=== PATIENT | female | born 1985 | race Caucasian/White ===

== ENCOUNTER 2024-09-26 12:26 | Outpatient (CLI) | payer OTHER, SELFPAY ==
[2024-09-28 20:29] LABS: HPV Source Cervical; HPV, High Risk by TMA Not Detected
== END 2024-09-26 12:27 | disposition home or self-care (01) ==
PROVIDERS: Visit Provider Registered Nurse
DX: Z00.00 Encounter for general adult medical examination without abnormal findings (principal); D50.9 Iron deficiency anemia, unspecified; E66.9 Obesity, unspecified; G47.00 Insomnia, unspecified; Z13.6 Encounter for screening for cardiovascular disorders; Z13.1 Encounter for screening for diabetes mellitus; Z11.51 Encounter for screening for human papillomavirus (HPV)
CPT/HCPCS: 80061; 82728; 82947; 84443; 87624; 87625; 88141; 88142

== ENCOUNTER 2024-12-20 13:23 | Outpatient (CLI) | payer OTHER, SELFPAY ==
--- NOTE | 2024-12-20 13:40 | CRLHL7_ITS ---
For Patients: As a result of the Century Cures Act, medical imaging exams and procedure reports are released immediately into your electronic medical record. You may view this report before your referring provider. If you have questions, please contact your health care provider. BILATERAL SCREENING MAMMOGRAM WITH COMPUTER-AIDED DETECTION AND TOMOSYNTHESIS TECHNIQUE: CC and MLO views were obtained. These mammographic images have been obtained using full-field digital technique. These mammographic images were interpreted with the benefit of computer-aided detection. Breast tomosynthesis was used in this interpretation. COMPARISON FILM: No comparison available. This is a baseline study. FINDINGS: There are scattered areas of fibroglandular density. IMPRESSION: There is no radiographic evidence for malignancy. ASSESSMENT: BI-RADS Category 2: Benign RECOMMENDATION: Routine screening mammogram in 1 year. A lay language report of this examination will be provided to the patient. STEFANO RUST M.D. Diagnostic Radiologist [email or web address] Transcribed: 01/02/2025, 12:[address]/Dictated by: Stefano Rust MD @ 01/02/2025 9:15:00 AM (Electronically Signed)
== END 2024-12-20 13:24 | disposition home or self-care (01) ==
LOC: MAMMO 13:23
PROVIDERS: Visit Provider Registered Nurse
DX: Z12.31 Encounter for screening mammogram for malignant neoplasm of breast (principal)
CPT/HCPCS: 77063; 77067

== ENCOUNTER 2025-03-28 10:24 | Outpatient (CLI) | payer OTHER, SELFPAY ==
--- NOTE | 2025-03-28 10:45 | CRLHL7_ITS ---
For Patients: As a result of the Century Cures Act, medical imaging exams and procedure reports are released immediately into your electronic medical record. You may view this report before your referring provider. If you have questions, please contact your health care provider. CLINICAL HISTORY: Pelvic pain TECHNIQUE: 2D leal scale ultrasound. In addition color Doppler and spectral Doppler analysis was performed of the pelvis using a transabdominal and transvaginal approach. FINDINGS: The uterus measures 8.1 x 6.0 x 5.2 cm. Anterior partially exophytic fundal fibroid measures 4.1 x 3.9 x 4.7 cm. IUD is present in good position within the endometrial canal. Endometrium is not thickened. The right ovary measures 3.2 x 2.0 x 2.3 cm in size and the left ovary measures 3.2 x 1.3 x 2.8 cm. The ovaries demonstrate normal arterial and venous blood flow on color Doppler and spectral Doppler analysis. There are no suspicious fluid collections within the cul-de-sac. IMPRESSION: Anterior fundal fibroid measures 4.1 x 3.9 x 4.7 cm. Normal position of an IUD within the endometrial canal. Normal ovaries without torsion or excess pelvic free fluid. No adnexal mass. Dictated by Stefano Leija MD @ 03/28/2025 8:11:18 PM (Electronically Signed)
== END 2025-03-28 10:25 | disposition home or self-care (01) ==
LOC: US 10:25
PROVIDERS: Visit Provider Obstetrics & Gynecology
DX: R10.2 Pelvic and perineal pain (principal); D25.9 Leiomyoma of uterus, unspecified
CPT/HCPCS: 76830; 76856; 93976

== ENCOUNTER 2025-05-23 08:23 | Outpatient (CLI) | payer OTHER, SELFPAY | END 2025-05-23 08:24 | disposition home or self-care (01) | PROVIDERS: Visit Provider Family Medicine | DX: R55 Syncope and collapse (principal); R53.1 Weakness; R07.89 Other chest pain | CPT/HCPCS: A0425; A0427 ==

== ENCOUNTER 2025-07-03 18:01 | Emergency (ER) | payer OTHER, SELFPAY ==
--- OUTSIDE RECORDS SUMMARY | 2025-07-03 18:04 | XMS_ITS | CCD ---
Author Name Interface, [id number] lity Address [address] [place] [address] [facility] Address [address] [place] [address] Care Team Providers Care [place] Management Specialist Name Role Phone Torsten Morfin Unavailable Unavailable Allergies and Adverse Reactions Care Plan Reason for Visit Encounters Immunizations Diagnostic Results Medications Problems Procedures Social History Visits Vital Signs Notes Section
--- OUTSIDE RECORDS SUMMARY | 2025-07-03 18:04 | XMS_ITS ---
Author Name Interface, [id number] lity Address [address] [place], [place] [address]N [place] [id number] [facility] On[facility] Address [address] [place], [place] [address] [place] [address] Allergies and Adverse Reactions Plan Reason for Visit Encounters Immunizations Diagnostic Results Medications Problems Vital Signs Notes Section
--- OUTSIDE RECORDS SUMMARY | 2025-07-03 18:04 | XMS_ITS | Clinical Summary ---
Author Organization [employer] [facility] Address [facility] [place] [address] Care Team Providers Care Photogrammetric Engineer Name Role Phone Riddhi Brewster NP Primary Care Pro vider Allergies No known active allergies Medications Advair HFA 115-21 mcg/actuation inhaler Inhale 2 Puffs by mouth two times daily. 3 Active traZODone (DESYREL) 50 mg tablet Take 100 mg by mouth at bedtime. 3 Active ferrous gluconate (27 mg elemental) 240 mg (27 mg iron) tablet Take 240 mg by mouth once daily. 4 Active Ventolin HFA 90 mcg/actuation inhaler Inhale 2 Puffs by mouth every 4 hours if needed for Shortness Of Breath or Wheezing. 4 Active ondansetron [address] 4 mg on the tongue every 8 hours if needed. 5 Active SUMAtriptan 100 mg tablet Take 100 mg by mouth 2 times daily if needed. 4 Active FLUoxetine 20 mg capsuleIndications: Anxiety Take 2 Capsules (40 mg) by mouth once daily in the morning. 30 Capsule 5 Active apixaban (Eliquis) 5 mg tabletIndications:p ulmonary thromboembolism Take 2 tablets (10 mg) by mouth twice daily for 11 DOSES. Starting on 06/03, take 1 tablet by mouth twice daily thereafter. 74 Tablet 05/28/2025 10:18 AM CDT Active cetirizine 10 mg tabletIndications:A llergic rhinitis due to pollen, unspecified seasonality Take 1 Tablet (10 mg) by mouth once daily if needed for Allergy Symptoms or Rhinitis. 5 Active Active Problems Problem Noted Date Diagnosed Date Other insomnia 05/26/2025 Acute massive pulmonary embolism 05/23/2025 Cardiogenic shock 05/23/2025 Resolved Problems Problem Noted Date Diagnosed Date Resolved Date Intermittent asthma, uncomplicated 05/26/2025 Allergic rhinitis 05/26/2025 Intractable migraine without aura and without status migrainosus 05/26/2025 Morbid obesity 05/26/2025 Overview (05/26/2025): s/p RnY bypass. BMI now 34 Anastomotic ulcer S/P gastric bypass 05/26/2025 Encounters Date Type Department Care Team Description 05/30/2025 Orders Only [facility] [address] [facility] [address] [place] [address] Haresh Lobo MD <No scans attached> 05/24/2025 12:44 PM CDT Anesthesia Event [facility] [address] [address] Jv Zhu, DO Mendez, Re Marsh, CARRIER LOADER 05/24/2025 12:15 PM CDT - 05/24/2025 2:57 PM CDT Surgery [facility] [address] [place] [address] Rachid Lima MD REMOVE ECMO CANNULA, LEFT FEMORAL ARTERY CUTDOWN 05/24/2025 Travel 05/23/2025 10:35 AM CDT - 05/28/2025 12:42 PM CDT Hospital Encounter [facility] [address] [place] [address] Hilario Brown MBBS Mayeux, MD Nic Duenas, MD Emely Castelan Michael Albert, MD Huelster, Jv Hidalgo MD [facility]ists Of Pulmonary embolism, unspecified chronicity, unspecified pulmonary embolism type, unspecified whether acute cor pulmonale present (HC) (Primary Dx); Anxiety; Allergic rhinitis due to pollen, unspecified seasonality; Cardiogenic shock (HC) Discharge Disposition: Home Self Care 05/23/2025 9:01 AM CDT - 05/23/2025 10:[address] [facility] [address] [place] [address] Nate Meneses MD Pulmonary embolism, unspecified chronicity, unspecified pulmonary embolism type, unspecified whether acute cor pulmonale present (HC) (Primary Dx); Shock (HC); Pneumomediastinum (HC) Discharge Disposition: Crit Acc Hosp w Planned Readmission 05/23/2025 Travel from Last 3 Months Immunizations Immunization Administration Dates Next Due Tdap 04/30/2023 Family History Medical History Relation Name Comments Heart attack Father Stroke Mother Miscarriages / Stillbirths Sister Thyroid cancer Sister Relation Name Status Comments Father Mother Sister Alive Social History Tobacco Use Types Packs/Day Years Used Date Smoking Tobacco: Never Smokeless Tobacco: Never Tobacco Cessation:Counseling Given: Not Answered Alcohol Use Standard Drinks/Week Comments Yes 0 (1 standard drink = 0.6 oz pur e alcohol) Social Connections Answer Date Recorded Do you often feel lonely or isolated from those around you? 0 05/25/2025 Financial Resource Strain Answer Date R ecorded Difficulty of Paying Living Expenses 3 05/25/2025 Difficulty of Paying Living Expenses Not on file 05/25/2025 Food Insecurity Answer Date Recorded Do you worry your food will run out before you are able to buy more? 1 05/25/2025 Transportation Needs Answer Date Record ed Does lack of transportation keep you from medica l appointments? 1 05/25/2025 Does lack of transportation keep you from work, meetings or getting things that you need? 1 05/25/2025 Housing Stability Answer Date Recorded What is your housing situation today? 1 05/25/2025 Interpersonal Safety Answer Date Record ed Are you being hit, kicked, p ushed or yelled at (see row info)? No 05/24/2025 Interpersonal Safety Abuse 12 - 18 Not on file 05/24/2025 Interpersonal Safety Ambulatory Vulnerability No t on file 05/24/2025 Utilities Answer Date Recorded Do you have trouble paying f or utilities (for example, heat, electricity, water, phone)? 1 05/25/2025 Comments Unknown Sex and Gender Information Value Date Recorded Sex Assigned at Female 04/30/2023 4:12 PM CDT Legal Sex Female 6:07 PM RESERVATIONIST Gender Identity Female 04/30/2023 4:12 PM CDT Sexual Orientation Straight 04/30/2023 4: 12 PM CDT Obstetrics History Last Filed Vital Signs Vital Sign Reading Time Taken Comments Blood Pressure 115/76 05/28/2025 11:00 AM CDT Pulse 108 05/28/2025 11:00 AM CDT Temperature 37.2 C (98.9 F) 05/28/2025 12:07 AM CDT Respiratory Rate 18 05/28/2025 11:00 AM CDT Oxygen Saturation 83% 05/28/2025 11:00 AM CDT Inhaled Oxygen Concentration - - Weight 96.2 kg (212 lb 1.3 oz) 05/27/2025 5:59 A M CDT Height 170.2 cm (5' 7) 05/23/2025 1:00 PM CDT Body Mass Index 33.22 05/23/2025 1:00 PM CDT Plan of Treatment Upcoming Encounters Date Type Department Care Team (Late st Contact Info) Description 07/18/2025 8:40 AM CDT Orders Only [facility] [address] [facility] [address] [place] [address] 07/18/2025 9:00 AM CDT Ancillary Procedure [facility] [address] [facility] [address] [place] [address] 07/18/2025 11:00 AM CDT Office Visit [facility] [address] [facility] [address] [place] [address] Vipul Rivers MD [address] [facility] [address] [place] [address] Health Maintenance Due Date Last Done Comments Depression screening for age 12+ 1995 HIV for age 15-65 1998 BMI (ht and wt on same day) for age 18+ 2001 Hepatitis C screening for age 18-79 2001 Hepatitis B series for 19+ ( 1 of 3 - 19+ 3-dose series) 2002 Pneumococcal series for age 6-49 (1 of 2 - PCV) 2001 Pap test for age 21-65 2004 COVID-19 vaccine series (2 - 2023- season) 2022 Influenza Vaccine (#1) 2025 Tetanus booster 04/30/2033 04/30/2023 Procedures Procedure Name Priority Date/Time Associated Diagnosis Comments SCAN-CARDIAC STRIP 05/28/2025 7: 21 AM CDT [facility] DRAW ONLY Early AM 05/28/2025 5:27 AM CDT VITAMIN D 25 (DEFICIENCY) Early AM 05/28/2025 5:27 AM CDT WHITE BLOOD COUNT Early AM 05/28/2025 5:2 7 AM CDT CREATININE Early AM 05/28/2025 5:27 AM CDT POTASSIUM Early AM 05/28/2025 5:27 AM CDT SODIUM Early AM 05/28/2025 5:27 AM CDT HEMOGLOBIN Early AM 05/28/2025 5:27 AM CDT MAGNESIUM Early AM 05/28/2025 5:27 AM CDT SCAN-CARDIAC STRIP 05/28/2025 12 :17 AM CDT PROTIME-INR Early AM 05/27/2025 11:45 PM CDT MAGNESIUM Timed 05/27/2025 8:14 PM CDT SCAN-CARDIAC STRIP 05/27/2025 4: 48 PM CDT GLUCOSE METER Timed 05/27/2025 4:08 PM CDT GLUCOSE METER Timed 05/27/2025 12:36 PM CDT URINE Today 05/27/2025 9:48 AM CDT SCAN-CARDIAC STRIP 05/27/2025 7: 27 AM CDT GLUCOSE METER Timed 05/27/2025 5:03 AM CDT TYPE & SCREEN Early AM 05/27/2025 4:48 AM CDT CWS PATH REVIEW HEMATOLOGY Timed 05/27/2025 4:48 AM CDT RED CELL MORPHOLOGY Timed 05/27/2025 4 :48 AM CDT PLATELET ESTIMATE Timed 05/27/2025 4:4 8 AM CDT MANUAL DIFFERENTIAL Timed 05/27/2025 4 :48 AM CDT EXTRA TUBE GOLD/SST Today 05/27/2025 4 :48 AM CDT CBC WITH AUTO DIFFERENTIAL Early AM 05/27/2025 4:48 AM CDT HEPARIN ANTI-XA Early AM 05/27/2025 4:48 AM CDT HEPATIC FUNCTION PANEL Early AM 05/27/2025 4:48 AM CDT HEMOGLOBIN A1C MONITORING (POCT) Early AM 05/27/2025 4:48 AM CDT MAGNESIUM Early AM 05/27/2025 4:48 AM CDT CBC WITH AUTO DIFFERENTIAL Early AM 05/27/2025 4:48 AM CDT BASIC METABOLIC PANEL Early AM 05/27/2025 4:48 AM CDT APTT Timed 05/27/2025 2:11 AM CDT GLUCOSE METER Timed 05/27/2025 12:32 AM CDT SCAN-CARDIAC STRIP 05/26/2025 7: 58 PM CDT GLUCOSE METER Timed 05/26/2025 7:54 PM CDT HEPARIN ANTI-XA Timed 05/26/2025 7:08 PM CDT POTASSIUM Timed 05/26/2025 7:08 PM CDT GLUCOSE METER Timed 05/26/2025 4:03 PM CDT LACTATE VENOUS STAT 05/26/2025 12:11 PM CDT HEPARIN ANTI-XA Timed 05/26/2025 12:11 PM CDT GLUCOSE METER Timed 05/26/2025 12:04 PM CDT ECHO TTE COMPLETE WO CONTRAST HAWA 05/26/2025 11:17 AM CDT LACTATE VENOUS STAT 05/26/2025 9:38 AM CDT POTASSIUM Timed 05/26/2025 9:38 AM CDT GLUCOSE METER Timed 05/26/2025 9:01 AM CDT US ABDOMEN LIMITED RUQ WITH DUPLEX PORTABLE Routine 05/26/2025 7:33 AM CDT CBC WITH AUTO DIFFERENTIAL Early AM 05/26/2025 4:59 AM CDT HEPARIN ANTI-XA HAWA 05/26/2025 4:59 AM CDT LACTATE ARTERIAL Early AM 05/26/2025 4:59 AM CDT MAGNESIUM Early AM 05/26/2025 4:59 AM CDT CBC WITH AUTO DIFFERENTIAL Early AM 05/26/2025 4:59 AM CDT HEPATIC FUNCTION PANEL Early AM 05/26/2025 4:59 AM CDT BASIC METABOLIC PANEL Early AM 05/26/2025 4:59 AM CDT POTASSIUM Timed 05/26/2025 4:59 AM CDT GLUCOSE METER Timed 05/26/2025 3:58 AM CDT MAGNESIUM Timed 05/26/2025 12:46 AM CDT GLUCOSE METER Timed 05/25/2025 11:47 PM CDT GLUCOSE METER Timed 05/25/2025 8:23 PM CDT HEPARIN ANTI-XA Timed 05/25/2025 4:40 PM CDT GLUCOSE METER Timed 05/25/2025 4:34 PM CDT SCAN-CARDIAC STRIP 05/25/2025 3: 32 PM CDT MAGNESIUM Timed 05/25/2025 2:12 PM CDT GLUCOSE METER Timed 05/25/2025 12:19 PM CDT HEPARIN ANTI-XA Timed 05/25/2025 9:22 AM CDT GLUCOSE METER Timed 05/25/2025 7:51 AM CDT XR CHEST 1 VIEW PORTABLE Routine 05/25/2025 4:59 AM CDT O2 SATURATION,MEASURED Timed 05/25/2025 4:23 AM CDT GLUCOSE METER Timed 05/25/2025 4:02 AM CDT CBC WITH AUTO DIFFERENTIAL Early AM 05/25/2025 3:39 AM CDT [facility]UM IONIZED HOSPITAL DRAW ONLY Early AM 05/25/2025 3:39 AM CDT HEPATIC FUNCTION PANEL Early AM 05/25/2025 3:39 AM CDT CBC WITH AUTO DIFFERENTIAL Early AM 05/25/2025 3:39 AM CDT BASIC METABOLIC PANEL Early AM 05/25/2025 3:39 AM CDT APTT Early AM 05/25/2025 3:39 AM CDT LACTATE ARTERIAL Early AM 05/25/2025 3:39 AM CDT MAGNESIUM Early AM 05/25/2025 3:39 AM CDT HEPARIN ANTI-XA Timed 05/25/2025 3:39 AM CDT GLUCOSE METER Timed 05/25/2025 3:33 AM CDT GLUCOSE METER Timed 05/24/2025 11:37 PM CDT COMPREHENSIVE BLOOD GAS MIXED VENOUS Timed 05/24/2025 10:09 PM CDT GLUCOSE METER Timed 05/24/2025 8:17 PM CDT HEPARIN ANTI-XA Timed 05/24/2025 8:17 PM CDT SCAN-CARDIAC STRIP 05/24/2025 6: 23 PM CDT O2 SATURATION,MEASURED STAT 05/24/2025 5:28 PM CDT GLUCOSE METER Timed 05/24/2025 4:01 PM CDT HEPARIN ANTI-XA Timed 05/24/2025 3:58 PM CDT MAGNESIUM Timed 05/24/2025 2:57 PM CDT O2 SATURATION,MEASURED STAT 05/24/2025 2:05 PM CDT ARTERIAL BLOOD GAS STAT 05/24/2025 2: 05 PM CDT CUTDOWN FEMORAL ARTERY Class C Urgent: 12 hrs 05/24/2025 12:27 PM CDT REMOVE ECMO CANNULA Class C Urgent: 12 hrs 05/24/2025 12:27 PM CDT GLUCOSE METER Timed 05/24/2025 12:04 PM CDT CK TOTAL STAT 05/24/2025 12:00 PM CDT HEMOGLOBIN AHWA 05/24/2025 10:42 AM CDT PROTIME-INR HAWA 05/24/2025 10:42 AM CDT FIBRINOGEN,QUANTITAT ALBERTO Today 05/24/2025 10:42 AM CDT COMPREHENSIVE BLOOD GAS MIXED VENOUS Timed 05/24/2025 10:20 AM CDT COMPREHENSIVE BLOOD GAS MIXED VENOUS Timed 05/24/2025 9:30 AM CDT ECHO TTE LIMITED WO CONTRAST W COLOR W LTD DOPPLER Routine 05/24/2025 8:52 AM CDT ANTITHROMBIN III ACTIVITY HAWA 05/24/2025 8:48 AM CDT PROTEIN S FREE AG HAWA 05/24/2025 8:4 8 AM CDT PROTEIN C HAWA 05/24/2025 8:48 AM CDT BETA 2 GLYCOPROTEIN I NARINDER HAWA 05/24/2025 8:48 AM CDT CARDIOLIPIN ANTIBODY HAWA 05/24/2025 8:48 AM CDT LUPUS ANTICOAGULANT HAWA 05/24/2025 8 :48 AM CDT FACTOR II GENE MUTATION (EVALUATE THROMBOPHILIA) HAWA 05/24/2025 8:48 AM CDT FACTOR V LEIDEN MUTATION (EVALUATE THROMBOPHILIA) HAWA 05/24/2025 8:48 AM CDT HEPARIN ANTI-XA Today 05/24/2025 8:48 AM CDT POTASSIUM Timed 05/24/2025 8:48 AM CDT COMPREHENSIVE BLOOD GAS ARTERIAL Timed 05/24/2025 8:09 AM CDT COMPREHENSIVE BLOOD GAS ARTERIAL Timed 05/24/2025 8:08 AM CDT GLUCOSE METER Timed 05/24/2025 7:59 AM CDT [facility]ONIZED [facility]OSPITAL DRAW ONLY Timed 05/24/2025 7:57 AM CDT COMPREHENSIVE BLOOD GAS ARTERIAL Timed 05/24/2025 5:46 AM CDT GLUCOSE METER Timed 05/24/2025 5:42 AM CDT COMPREHENSIVE BLOOD GAS MIXED VENOUS Timed 05/24/2025 4:29 AM CDT CBC WITH AUTO DIFFERENTIAL Early AM 05/24/2025 4:06 AM CDT CK TOTAL STAT 05/24/2025 4:06 AM CDT APTT Timed 05/24/2025 4:06 AM CDT LD,TOTAL Early AM 05/24/2025 4:06 AM CDT HEPATIC FUNCTION PANEL Today 05/24/2025 4:06 AM CDT PHOSPHORUS Early AM 05/24/2025 4:06 AM CDT LACTATE ARTERIAL Early AM 05/24/2025 4:06 AM CDT BASIC METABOLIC PANEL Early AM 05/24/2025 4:06 AM CDT CBC WITH AUTO DIFFERENTIAL Early AM 05/24/2025 4:06 AM CDT MAGNESIUM Early AM 05/24/2025 4:06 AM CDT GLUCOSE METER Timed 05/24/2025 2:36 AM CDT FIBRINOGEN,QUANTITAT ALBERTO Timed 05/24/2025 2:03 AM CDT GLUCOSE METER Timed 05/24/2025 12:27 AM CDT APTT Timed 05/24/2025 12:25 AM CDT CK TOTAL STAT 05/24/2025 12:25 AM CDT LACTATE ARTERIAL Today 05/24/2025 12:2 5 AM CDT PLATELET COUNT Timed 05/24/2025 12:25 AM CDT HEMOGLOBIN Timed 05/24/2025 12:25 AM CDT COMPREHENSIVE BLOOD GAS ARTERIAL Timed 05/23/2025 10:55 PM CDT GLUCOSE METER Timed 05/23/2025 10:18 PM CDT COMPREHENSIVE BLOOD GAS ARTERIAL Timed 05/23/2025 8:08 PM CDT ARTERIAL BLOOD GAS STAT 05/23/2025 7: 59 PM CDT O2 SATURATION,MEASURED STAT 05/23/2025 7:59 PM CDT GLUCOSE METER Timed 05/23/2025 7:56 PM CDT GLUCOSE METER Timed 05/23/2025 5:14 PM CDT APTT Timed 05/23/2025 5:08 PM CDT FIBRINOGEN,QUANTITAT ALBERTO HAWA 05/23/2025 5:08 PM CDT O2 SATURATION,MEASURED STAT 05/23/2025 5:07 PM CDT CK TOTAL STAT 05/23/2025 5:07 PM CDT LACTATE ARTERIAL Today 05/23/2025 5:07 PM CDT PLATELET COUNT Timed 05/23/2025 5:07 PM CDT HEMOGLOBIN Timed 05/23/2025 5:07 PM CDT US VENOUS LOWER EXTREMITY BILATERAL PORTABLE STAT 05/23/2025 4:42 PM CDT COMPREHENSIVE BLOOD GAS ARTERIAL Timed 05/23/2025 4:17 PM CDT MAGNESIUM HAWA 05/23/2025 2:48 PM CDT CK TOTAL Today 05/23/2025 2:48 PM CDT POTASSIUM Today 05/23/2025 2:48 PM CDT APTT Today 05/23/2025 2:48 PM CDT TROPONIN T (HS) ONE TIME Timed 05/23/2025 2:48 PM CDT EKG 12 LEAD STAT 05/23/2025 2:12 PM CDT O2 SATURATION,MEASURED STAT 05/23/2025 1:21 PM CDT XR CHEST 1 VIEW PORTABLE STAT 05/23/2025 1:18 PM CDT XR ABDOMEN 1 VIEW PORTABLE STAT 05/23/2025 1:17 PM CDT COMPREHENSIVE BLOOD GAS ARTERIAL Timed 05/23/2025 1:14 PM CDT COMPREHENSIVE BLOOD GAS ARTERIAL Timed 05/23/2025 1:03 PM CDT LD,TOTAL STAT 05/23/2025 12:57 PM CDT BASIC METABOLIC PANEL STAT 05/23/2025 12:57 PM CDT CBC W PLT NO DIFF STAT 05/23/2025 12: 57 PM CDT TROPONIN T (HS) ACUTE W/2HR REFLEX STAT 05/23/2025 12:57 PM CDT HEMOGLOBIN HAWA 05/23/2025 12:57 PM CDT PLATELET COUNT HAWA 05/23/2025 12:57 PM CDT APTT HAWA 05/23/2025 12:57 PM CDT PROTIME-INR HAWA 05/23/2025 12:57 PM CDT URINALYSIS MICROSCOPIC Timed 05/23/2025 12:56 PM CDT CALCIUM IONIZED HOSPITAL DRAW ONLY Today 05/23/2025 12:56 PM CDT UA W/ SEDIMENT EXAM REFLEXED PER CRITERIA Today 05/23/2025 12:56 PM CDT GLUCOSE METER Timed 05/23/2025 12:55 PM CDT COMPREHENSIVE BLOOD GAS MIXED VENOUS Timed 05/23/2025 11:57 AM CDT COMPREHENSIVE BLOOD GAS ARTERIAL Timed 05/23/2025 11:53 AM CDT HCHG ACTIVATED CLOTTING TM CV Timed 05/23/2025 11:46 AM CDT CVL CORONARY ANGIOGRAM POSS PCI Routine 05/23/2025 11:18 AM CDT TYPE & SCREEN STAT 05/23/2025 11:01 AM CDT BEDSIDE US STUDY ARCHIVE Routine 05/23/2025 10:40 AM CDT HEPATIC FUNCTION PANEL HAWA 05/23/2025 9:39 AM CDT APTT STAT 05/23/2025 9:39 AM CDT PROTIME-INR STAT 05/23/2025 9:39 AM CDT PRO-BNP STAT 05/23/2025 9:39 AM CDT TROPONIN T (HS) ACUTE W/2HR REFLEX STAT 05/23/2025 9:39 AM CDT BASIC METABOLIC PANEL STAT 05/23/2025 9:39 AM CDT CBC W PLT NO DIFF STAT 05/23/2025 9:3 9 AM CDT EKG 12 LEAD STAT 05/23/2025 9:[address] CHEST PE STUDY STAT 05/23/2025 9:2 3 AM CDT from Last 3 Months Results * SCAN-CARDIAC STRIP (05/28/2025 7:21 AM CDT) us Scanner OTHER Final Result * Vitamin D 25-OH AM (05/28/2025 5:27 AM CDT) VITAMIN D TOTAL 50.5 20.0 - 80.0 ng/mL 05/28/2025 6:35 AM CDT [facility] Blood BLOOD SPECIMEN / Unknown Venipuncture / Unknown 05/28/2025 5:27 AM CDT 05/28/2025 5:39 AM CDT Narrative [facility] - 05/28/2025 6:35 AM CDT Vitamin D Status Deficiency: <20 ng/mL Insufficiency: 20-29 ng/mL Sufficiency: 30-80 ng/mL Possible Toxicity: >80 ng/mL Based on [place] of Medicine recommendations Biotin supplements may cause clinically significant interference for this test assay. If interference is suspected, it is strongly recommended that biotin is discontinued for at least one week prior to retesting. Wicho Ashby MD SEND OUTS Denisha l Result Performing Organization Address City/[facility] Co de Phone Number [facility] [address] [place] [address], [place] * WBC AM (05/28/2025 5:27 AM CDT) WHITE BLOOD COUNT 10.5 4.5 - 11.0 thou/cu mm 05/28/2025 5:51 AM CDT [facility] NRBC 0.0 % 05/28/2025 5:51 AM CDT [facility] ABS NRBC 0.0 thou /cu mm 05/28/2025 5:51 AM CDT [facility] Blood BLOOD SPECIMEN / Unknown Venipuncture / Unknown 05/28/2025 5:27 AM CDT 05/28/2025 5:39 AM CDT Wicho Ashby MD HEMATOLOGY Denisha l Result Performing Organization Address City/[facility]/ZIP Co de Phone Number [facility] [address] [place] [address], * (ABNORMAL) Hemoglobin AM (05/28/2025 5:27 AM CDT) Only the most recent of5 resultswithin the time period is included. HEMOGLOBIN 8.8(L) 12.0 - 16.0 g/dL 05/28/2025 5:51 AM CDT [facility] MCV 88 80 - 100 fL 05/28/2025 5:51 AM CDT [facility] Blood BLOOD SPECIMEN / Unknown Venipuncture / Unknown 05/28/2025 5:27 AM CDT 05/28/2025 5:39 AM CDT Wicho Ashby MD HEMATOLOGY Denisha l Result [facility] [address] [place] [phone], [place] * SODIUM (05/28/2025 5:27 AM CDT) SODIUM 139 136 - 145 mmol/L 05/28/2025 6:35 AM CDT [facility] Blood BLOOD SPECIMEN / Unknown Venipuncture / Unknown 05/28/2025 5:27 AM CDT 05/28/2025 5:39 AM CDT Wicho Ashby MD CHEMISTRY Denisha l Result Performing Organization Address [facility] Co de Phone Number [facility] [address] [place] [phone], [place] * POTASSIUM (05/28/2025 5:27 AM CDT) Only the most recent of6 resultswithin the time period is included. POTASSIUM 4.0 3.5 - 5.1 mmol/L 05/28/2025 6:35 AM CDT [facility] Blood BLOOD SPECIMEN / Unknown Venipuncture / Unknown 05/28/2025 5:27 AM CDT 05/28/2025 5:39 AM CDT Wicho Ashby MD CHEMISTRY Denisha l Result Performing Organization Address City/[facility]/ZIP Co de Phone Number [facility] [address] [place], [place] [id number], [place] * CREATININE (05/28/2025 5:27 AM CDT) Pathologist [facility] eGFR >90 >90 mL/min/1.7 3m2 05/28/2025 6:35 AM CDT [facility] Comment:As of 2022, eG FR is calculated by the CKD-EPI creatinine equation without race adjustment. eGFR can be influenced by muscle mass, exercise, and diet. The reported eGFR is an estimation only and is only applicable if the renal function is stable. CREATININE 0.80 0.50 - 0.90 mg/dL 05/28/2025 6:35 AM CDT [facility] Blood BLOOD SPECIMEN / Unknown Venipuncture / Unknown 05/28/2025 5:27 AM CDT 05/28/2025 5:39 AM CDT Wicho Ashby MD CHEMISTRY Denisha l Result Performing Organization Address City/[facility]/ZIP Co de Phone Number [facility] [address] [place] [address], [place] * Magnesium (05/28/2025 5:27 AM CDT) Only the most recent of10 resultswithin the time period is included. [facility] MAGNESIUM 1.9 1.6 - 2.6 mg/dL 05/28/2025 6:35 AM CDT [facility] Blood BLOOD SPECIMEN / Unknown Venipuncture / Unknown 05/28/2025 5:27 AM CDT 05/28/2025 5:39 AM CDT Jasmyne Ornelas NP CHEMISTRY Final Res ult Performing Organization Address City/[facility]/ZIP Co de Phone Number [facility] [address] [place] [address], [place] * [facility]UM IONIZED HOSPITAL DRAW ONLY (05/28/2025 5:27 AM CDT) Only the most recent of4 resultswithin the time period is included. [facility] CALCIUM,IONIZE D 1.18 1.15 - 1.27 mmol/L 05/28/2025 5:43 AM CDT [facility] Blood BLOOD SPECIMEN / Unknown Venipuncture / Unknown 05/28/2025 5:27 AM CDT 05/28/2025 5:36 AM CDT us Wicho Ashby MD CHEMISTRY Denisha l Result Performing Organization Address [facility] Co de Phone Number [facility] [address] [place] [id number], [place] * SCAN-CARDIAC STRIP (05/28/2025 12:17 AM CDT) us Scanner OTHER Final Result * (ABNORMAL) PROTIME-INR (05/27/2025 11:45 PM CDT) Only the most recent of4 resultswithin the time period is included. INR 1.2 <1.3 05/28/2025 12:10 AM CDT [facility] PROTIME 13.4(H) 10.6 - 12.4 sec 05/28/2025 12:10 AM CDT [facility] Blood BLOOD SPECIMEN / Unknown Butterfly / Unknown 05/27/2025 11:45 PM CDT 05/27/2025 11:53 PM CDT Narrative [facility] - 05/28/2025 12:10 AM CDT Therapeutic Range 2.0-3.0 for most anticoagulated patients 2.5-3.5 or 4.0 for high risk patients The INR is only used for patients on stable oral anticoagulant therapy. It makes no significant contribution to the diagnosis or treatment of patients whose Protime is prolonged for other reasons. INR results are increased when heparin levels exceed 1.0 U/mL, which corresponds to an aPTT >125 seconds if the patient is on UFH. us Jasymne Ornelas DISTRIBUTION COORDINATOR HEMATOLOGY Final Res ult Performing Organization Address [facility] Co de Phone Number [facility] [address] [address], [place] * SCAN-CARDIAC STRIP (05/27/2025 4:48 PM CDT) us Scanner OTHER Final Result * (ABNORMAL) GLUCOSE METER (05/27/2025 4:08 PM CDT) Only the most recent of28 resultswithin the time period is included. GLUCOSE METER 121(H) 65 - 100 mg/dL 05/27/2025 4:09 PM CDT [facility] Blood BLOOD SPECIMEN / Unknown 05/27/2025 4:08 PM CDT 05/27/2025 4:09 PM CDT Haresh Lobo MD CHEMISTRY Final R esult Performing Organization Address City/[facility]/ZIP Co de Phone Number [facility] [address] [place] [address], * test, urine TODAY (05/27/2025 9:48 AM CDT) Pathologist [facility] ,URIN E Negative Negative 05/27/2025 10:05 AM CDT [facility] Urine URINE SPECIMEN / Unknown Non-Blood / Unknown 05/27/2025 9:48 AM CDT 05/27/2025 9:55 AM CDT us Wicho Ashby MD URINE Denisha l Result Performing Organization Address City/[facility]/ZIP Co de Phone Number [facility] [address] [place] [address], * SCAN-CARDIAC STRIP (05/27/2025 7:27 AM CDT) us Scanner OTHER Final Result * [facility] PATH REVIEW HEMATOLOGY (05/27/2025 4:48 AM CDT) PATH COMMENT Comment 06/01/2025 7:12 AM CDT [facility] Comment: If the absolute lymphocytosis persists and/or is unexplained, consider peripheral blood morphology study for further evaluation. Reviewed by Anum Taveras MT, MS (ASCP) on 05/31/2025 Blood BLOOD SPECIMEN / Unknown Venipuncture / Unknown 05/27/2025 4:48 AM CDT 05/27/2025 5:04 AM CDT us Jasmyne Ornelas [employer] Final Res ult [facility] [address] [place] [address], [place] * (ABNORMAL) CBC WITH AUTO DIFFERENTIAL (05/27/2025 4:48 AM CDT) Only the most recent of4 resultswithin the time period is included. WHITE BLOOD COUNT 15.4(H) 4.5 - 11.0 thou/cu mm 05/27/2025 6:05 AM CDT [facility] RED BLOOD COUNT 2.81(L) 4.00 - 5.20 mil/cu mm 05/27/2025 6:05 AM CDT [facility] HEMOGLOBIN 8.0(L) 12.0 - 16.0 g/dL 05/27/2025 6:05 AM T [facility] HEMATOCRIT 25.0(L) 33.0 - 51.0 % 05/27/2025 6:05 AM T [facility] MCV 89 80 - 100 fL 05/27/2025 6:05 AM T [facility] MCH 28.5 26.0 - 34.0 pg 05/27/2025 6:05 AM T [facility] MCHC 32.0 32.0 - 36.0 g/dL 05/27/2025 6:05 AM T [facility] RDW 14.2 11.5 - 15.5 % 05/27/2025 6:05 AM T [facility] PLATELET COUNT 275 140 - 440 thou/cu mm 05/27/2025 6:05 AM T [facility] MPV 10.0 6.5 - 11.0 fL 05/27/2025 6:05 AM CDT [facility] NRBC 0.0 % 05/27/2025 6:05 AM CDT [facility] ABS NRBC 0.0 thou /cu mm 05/27/2025 6:05 AM CDT [facility] Blood BLOOD SPECIMEN / Unknown Venipuncture / Unknown 05/27/2025 4:48 AM CDT 05/27/2025 5:04 AM CDT Jasmyne Ornelas DISTRIBUTION COORDINATOR HEMATOLOGY Final Res ult [facility] [address] [place] [address], [place] * (ABNORMAL) RED CELL MORPHOLOGY (05/27/2025 4:48 AM CDT) ELLIPTOCYTES Few 05/27/2025 6:05 AM CDT [facility] POLYCHROMASIA Slight 05/27/2025 6:05 AM CDT [facility] TARGET CELLS Few 05/27/2025 6:05 AM CDT [facility] RBC COMMENT Present(A) RBC morphology appears normal, RBC morphology within normal limits for newborns. 05/27/2025 6:05 AM CDT [facility] Blood BLOOD SPECIMEN / Unknown Venipuncture / Unknown 05/27/2025 4:48 AM CDT 05/27/2025 5:04 AM CDT Jasmyne Ornelas DISTRIBUTION COORDINATOR HEMATOLOGY Final Res ult [facility] [address] [place] [id number], [place] * PLATELET ESTIMATE (05/27/2025 4:48 AM CDT) PLATELET ESTIMATE Adequate Adequate, No estimate 05/27/2025 6:05 AM CDT [facility] Blood BLOOD SPECIMEN / Unknown Venipuncture / Unknown 05/27/2025 4:48 AM CDT 05/27/2025 5:04 AM CDT us Jasmyne Ornelas DISTRIBUTION COORDINATOR HEMATOLOGY Final Res ult [facility] [address], [place] [address], [place] * EXTRA TUBE GOLD/SST (05/27/2025 4:48 AM CDT) Blood BLOOD SPECIMEN / Unknown Extra Tube / Unknown 05/27/2025 4:48 AM CDT 05/27/2025 5:06 AM CDT us Wicho Ahsby MD LABORATORY Denisha l Result Performing Organization Address City/[facility]/ZIP Co de Phone Number [facility] [address], [place] [address], [place] * (ABNORMAL) MANUAL DIFFERENTIAL (05/27/2025 4:48 AM CDT) % NEUTROPHILS 46.0 % 05/27/2025 6:05 AM CDT [facility] % LYMPHOCYTES 47.0 % 05/27/2025 6:05 AM CDT [facility] % MONOCYTES 6.0 % 05/27/2025 6:05 AM CDT [facility] % EOSINOPHILS 1.0 % 05/27/2025 6:05 AM CDT [facility] % BASOPHILS 0.0 % 05/27/2025 6:05 AM CDT [facility] NEUTROPHILS ABSOLUTE 7.1(H) 1.7 - 7.0 thou/cu mm 05/27/2025 6:05 AM CDT [facility] LYMPHOCYTES ABSOLUTE 7.2(H) 0.9 - 2.9 thou/cu mm 05/27/2025 6:05 AM CDT [facility] MONOCYTES ABSOLUTE 0.9(H) <0.9 thou/cu mm 05/27/2025 6:05 AM CDT [facility] EOSINOPHILS ABSOLUTE 0.2 <0.5 thou/cu mm 05/27/2025 6:05 AM CDT [facility] BASOPHILS ABSOLUTE 0.0 <0.3 thou/cu mm 05/27/2025 6:05 AM CDT [facility] Blood BLOOD SPECIMEN / Unknown Venipuncture / Unknown 05/27/2025 4:48 AM CDT 05/27/2025 5:04 AM CDT Jasmyne Ornelas DISTRIBUTION COORDINATOR HEMATOLOGY Final Res ult [facility] [address] [place] [address], * TYPE & SCREEN (05/27/2025 4:48 AM CDT) Only the most recent of2 resultswithin the time period is included. ABORH A Rh Positive 05/27/2025 5:43 AM CDT [facility] ANTIBODY SCREEN Negative Negative 05/27/2025 5:43 AM CDT [facility] SPECIMEN EXPIRATION DATE/TIME 05/30/25 23:59 05/27/2025 5:43 AM CDT [facility] Blood BLOOD SPECIMEN / Unknown Venipuncture / Unknown 05/27/2025 4:48 AM CDT 05/27/2025 5:04 AM CDT Wicho Ashby MD BLOOD BANK Denisha l Result [facility] [address] [place] [address], * HEPARIN LEVEL (05/27/2025 4:48 AM CDT) Only the most recent of10 resultswithin the time period is included. HEPARIN ANTI-XA 0.46 See Comment U/mL 05/27/2025 6:12 AM CDT [facility] Blood BLOOD SPECIMEN / Unknown Venipuncture / Unknown 05/27/2025 4:48 AM CDT 05/27/2025 5:04 AM CDT Narrative [facility] - 05/27/2025 6:12 AM CDT [facility] IV Infusion Therapeutic VTE: 0.3 - 0.7 U/mL [facility] IV Infusion Therapeutic AF/Valve Bridgin.3 - 0.5 U/mL [facility] IV Infusion Therapeutic ACS: 0.3 - 0.5 U/mL [facility] IV Infusion Therapeutic High Bleeding Risk: 0.3 - 0.5 U/mL [facility] IV Infusion Prophylactic: 0.11 - 0.29 U/mL UFH SubQ Therapeutic: 0.56 - 0.68 U/mL UFH SubQ Prophylactic: 0.15 - 0.25 U/mL Critical: >1.00 U/mL us Jv Baron MD HEMATOLOGY Final Result [facility] [address] [place] [id number], * Screening hemoglobin A1c AM (order if not done w/in 3 mos) (05/27/2025 4:48 AM CDT) [facility] HEMOGLOBIN A1C MONITORING (POCT) 4.9 <=6.4 % 05/27/2025 3:08 PM CDT [facility] Blood BLOOD SPECIMEN / Unknown Venipuncture / Unknown 05/27/2025 4:48 AM CDT 05/27/2025 5:04 AM CDT Narrative [facility] - 05/27/2025 3:08 PM CDT (<=6.9%) Indicates good control (7.0% to 7.9%) Indicates fair control (>=8.0%) Indicates poor control NOTE: These thresholds are guidelines and individual targets may vary. Falsely low levels may be seen with: Recent Transfusion, Recent Significant Blood Loss, Hemolytic Diseases, or Falsely elevated levels may be seen with: Untreated Anemias, Splenectomy us Wicho Ashby MD CHEMISTRY Denisha l Result [facility] [address] [place] [address], [place] * (ABNORMAL) Hepatic function panel AM (05/27/2025 4:48 AM CDT) Only the most recent of5 resultswithin the time period is included. ALBUMIN 3.2(L) 4.0 - 4.9 g/dL 05/27/2025 5:33 AM CDT [facility] PROTEIN,TOTAL 5.3(L) 6.0 - 8.0 g/dL 05/27/2025 5:33 AM CDT [facility] BILIRUBIN,TOTAL 0.3 0.0 - 1.2 mg/dL 05/27/2025 5:33 AM CDT [facility] BILIRUBIN,DIRECT 0.1 0.0 - 0.2 mg/dL 05/27/2025 5:33 AM CDT [facility] BILIRUBIN,INDIRE CT 0.2 0.2 - 0.8 mg/dL 05/27/2025 5:33 AM CDT [facility] ALK PHOSPHATASE 54 35 - 104 IU/L 05/27/2025 5:33 AM CDT [facility] ALT (SGPT) 177(H) 10 - 35 IU/L 05/27/2025 5:33 AM CDT [facility] AST (SGOT) 161(H) 10 - 35 IU/L 05/27/2025 5:33 AM CDT [facility] Blood BLOOD SPECIMEN / Unknown Venipuncture / Unknown 05/27/2025 4:48 AM CDT 05/27/2025 5:03 AM CDT us Wicho Ashby MD CHEMISTRY Denisha l Result [facility] [address] [place] [address], [place] * (ABNORMAL) Basic Metabolic Panel (05/27/2025 4:48 AM CDT) Only the most recent of6 resultswithin the time period is included. SODIUM 139 136 - 145 mmol/L 05/27/2025 5:33 AM CDT [facility] POTASSIUM 4.9 3.5 - 5.1 mmol/L 05/27/2025 5:33 AM T [facility] CHLORIDE 108(H) 98 - 107 mmol/L 05/27/2025 5:33 AM T [facility] CO2,TOTAL 23 22 - 29 mmol/L 05/27/2025 5:33 AM CDT [facility] ANION GAP 8 5 - 18 05/27/2025 5:33 AM T [facility] GLUCOSE 84 70 - 99 mg/dL 05/27/2025 5:33 AM T [facility] CALCIUM 8.6(L) 8.8 - 10.4 mg/dL 05/27/2025 5:33 AM T [facility] Comment: Reference ranges for this test were updated on 09/27/2024 to reflect our healthy population more accurately. Reference range changes are not retroactively applied to results, but previous results using the same methodology can be interpreted in the context of the new reference range. BUN 6 6 - 20 mg/dL 05/27/2025 5:33 AM T [facility] CREATININE 0.85 0.50 - 0.90 mg/dL 05/27/2025 5:33 AM [facility] BUN/CREAT RATIO 7(L) 10 - 20 5:33 AM T [facility] eGFR 88(L) >90 mL/min/1. 73m2 05/27/2025 5:33 AM [facility] Comment:As of 2022, eG FR is calculated by the CKD-EPI creatinine equation without race adjustment. eGFR can be influenced by muscle mass, exercise, and diet. The reported eGFR is an estimation only and is only applicable if the renal function is stable. Blood BLOOD SPECIMEN / Unknown Venipuncture / Unknown 05/27/2025 4:48 AM CDT 05/27/2025 5:03 AM CDT Jasmyne Ornelas NP CHEMISTRY Final Res ult Performing Organization Address City/[facility]/ZIP Co de Phone Number [facility] [address] [place] [address], * (ABNORMAL) APTT (05/27/2025 2:11 AM CDT) Only the most recent of8 resultswithin the time period is included. APTT 53(H) 25 - 36 sec 05/27/2025 2:33 AM CDT [facility] Blood BLOOD SPECIMEN / Unknown Butterfly / Unknown 05/27/2025 2:11 AM CDT 05/27/2025 2:20 AM CDT Narrative [facility] - 05/27/2025 2:33 AM CDT Therapeutic Range: 59-89 seconds Wicho Ashby MD HEMATOLOGY Denisha l Result Performing Organization Address [facility] Co de Phone Number [facility] [address] [place] [address], * SCAN-CARDIAC STRIP (05/26/2025 7:58 PM CDT) Scanner OTHER Final Result * LACTATE VENOUS (05/26/2025 12:11 PM CDT) Only the most recent of2 resultswithin the time period is included. LACTATE,VENOUS 1.3 0.5 - 2.0 mmol/L 05/26/2025 12:42 PM CDT [facility] Blood BLOOD SPECIMEN / Unknown Butterfly / Unknown 05/26/2025 12:11 PM CDT 05/26/2025 12:16 PM CDT Haresh Lobo MD CHEMISTRY Final R esult [facility] [address] [place] [address], [place] * ECHO TTE COMPLETE WO CONTRAST (05/26/2025 11:17 AM CDT) Only the most recent of2 resultswithin the time period is included. AORTIC VALVE MEAN PG 6 mmHg EJECTION FRACTION 66 % LVEDD 4.6 cm PEAK TR VELOCITY 2.8 m/s Anatomical Region Laterality Modality Ultrasound 05/26/2025 10:3 3 AM CDT Narrative 05/26/2025 12:59 PM CDT ECHOCARDIOGRAM SHANELL MENDEZ : 1985 39 years Study Date: 05/26/2025 10:33:03 AM Gender: F BP: 121/81 mmHg Height: 170.00 cm BSA: 2.10 m Weight: 99.00 kg Tech: Referring MD: HARESH LOBO Site: [facility] Reading Location: [facility] IP Patient Location: Inpatient. Procedure: 2D, Color Doppler and Spectral Doppler. Indication for study: RVF, HX PE & ECMO Cardiac Rhythm: Normal sinus.Study quality: Good. Final Impressions: 1. Normal left ventricular size, normal wall thickness, normal global systolic function, calculated EF of 66 %. 2. Right ventricular cavity size is moderately enlarged, global systolic RV function is mild-moderately reduced. TAPSE 2.8. Mid RV free wall hypokinesis with preserved basal/annular and apical function. 3. Borderline estimated SVI (35 ml/m^2) but in context of tachycardia preserved estimated CO/CI (6.4 lpm/3.1 lpm/m^2). 4. Pulmonary artery is mildly dilated. 5. No hemodynamically significant valvular heart disease. 6. Normal estimated RA (3 mmHg) and mildly elevated estimated RV systolic (34 mmHg) pressures. 7. No pericardial effusion. Comparison Compared to prior exam of 05/24/25: - RV function has improved - VA ECMO has been decannulated. Chamber Sizes and Function Normal left ventricular size, normal wall thickness, normal global systolic function, calculated EF of 66 %. No resting regional wall motion abnormality visualized. Left atrial size is normal. Right ventricular cavity size is moderately enlarged, global systolic RV function is moderately reduced. The right atrium is moderately enlarged. Right atrial volume index is 41 ml/m . The pulmonary artery is mildly dilated. The sinus of Valsalva is normal sized. The ascending aorta is normal sized. Valves, RV Pressures and Diastolic Function The aortic valve is normal in structure and trileaflet, no stenosis and no regurgitation. The mitral valve is normal in structure, no mitral regurgitation. Normal diastolic function. The tricuspid valve is normal in structure, mild tricuspid regurgitation. The tricuspid regurgitant velocity is 2.8 m/s, the estimated right ventricular systolic pressure is 31 mmHg plus right atrial pressure. The pulmonic valve is normal. No pulmonary regurgitation. Masses, Effusion, Shunts There is no pericardial effusion. The inferior vena cava is normal sized, respiratory size variation greater than 50%. No left to right shunting was detected by limited color flow Doppler interrogation of the interatrial septum. MEASUREMENTS AND CALCULATIONS 2-D Measurements and LV Function: LVID (d) 4.6 cm Planimetered EF 66 % LVID (s) 3.2 cm LV FS% (2D) 30 % IVS (d) 1.1 cm LVOT diameter 2.0 cm LVPW (d) 1.1 cm HR 87 bpm Ao Sinus 3.3 cm LA Vol index 27 ml/m2 Ao Sinus ULN 3.6 cm * RA Vol index 41 ml/m2 Asc Ao 3.6 cm RV Basal Diam 4.1 cm Asc Ao ULN 3.6 cm * * Input BSA outside of range, reported values correspond to BSA = 1.9 Diastology: Mitral Tissue Doppler E Peak 0.7 m/s e', Septum 0.12 m/s A Peak 0.7 m/s e', Lateral 0.14 m/s E/A 1.1 E/e' Average 5.35 DT 128 msec Aortic Valve: Vmax 1.7 m/s CLAUDINE (V) 2.63 cm VTI 0.29 m CLAUDINE (I) 2.56 cm LVOT V max 1.4 m/s Max PG 11 mmHg LVOT VTI 0.24 m Mean PG 6 mmHg SV 74 ml Dim Index 0.82 SV index 35 ml/m CO 6.4 l/min CI 3.1 l/min/m Mitral Valve: MVA 5.9 cm MV P 1/2 37 msec Tricuspid Valve and estimated PA pressures: TR Vmax 2.8 m/s TAPSE 2.8 cm TR maxG 31 mmHg . This study was interpreted by an [facility] accredited facility. Final Procedure Note Haresh Lobo MD - 05/26/2025 ECHOCARDIOGRAM SHANELL MENDEZ : 1985 39 years Study Date: 05/26/2025 10:33:03 AM Gender: F BP: 121/81 mmHg Height: 170.00 cm BSA: 2.10 m Weight: 99.00 kg Tech: Referring MD: HARESH LOBO Site: [facility] Reading Location: [facility] Patient Location: Inpatient. Procedure: 2D, Color Doppler and Spectral Doppler. Indication for study: RVF, HX PE & ECMO Cardiac Rhythm: Normal sinus.Study quality: Good. Final Impressions: 1. Normal left ventricular size, normal wall thickness, normal globalsystolic function, calculated EF of 66 %. 2. Right ventricular cavity size is moderately enlarged, global systolicRV function is mild-moderately reduced. TAPSE 2.8. Mid RV free wallhypokinesis with preserved basal/annular and apical function. 3. Borderline estimated SVI (35 ml/m^2) but in context of tachycardiapreserved estimated CO/CI (6.4 lpm/3.1 lpm/m^2). 4. Pulmonary artery is mildly dilated. 5. No hemodynamically significant valvular heart disease. 6. Normal estimated RA (3 mmHg) and mildly elevated estimated RV systolic(34 mmHg) pressures. 7. No pericardial effusion. Comparison Compared to prior exam of 05/24/25: - RV function has improved - VA ECMO has been decannulated. Chamber Sizes and Function Normal left ventricular size, normal wall thickness, normal globalsystolic function, calculated EF of 66 %. No resting regional wall motionabnormality visualized. Left atrial size is normal. Right ventricularcavity size is moderately enlarged, global systolic RV function ismoderately reduced. The right atrium is moderately enlarged. Right atrialvolume index is 41 ml/m . The pulmonary artery is mildly dilated. Thesinus of Valsalva is normal sized. The ascending aorta is normal sized. Valves, RV Pressures and Diastolic Function The aortic valve is normal in structure and trileaflet, no stenosis and noregurgitation. The mitral valve is normal in structure, no mitralregurgitation. Normal diastolic function. The tricuspid valve is normal instructure, mild tricuspid regurgitation. The tricuspid regurgitantvelocity is 2.8 m/s, the estimated right ventricular systolic pressure is31 mmHg plus right atrial pressure. The pulmonic valve is normal. Nopulmonary regurgitation. Masses, Effusion, Shunts There is no pericardial effusion. The inferior vena cava is normal sized,respiratory size variation greater than 50%. No left to right shunting wasdetected by limited color flow Doppler interrogation of the interatrialseptum. MEASUREMENTS AND CALCULATIONS 2-D Measurements and LV Function: LVID (d) 4.6 cm Planimetered EF 66% LVID (s) 3.2 cm LV FS% (2D) 30% IVS (d) 1.1 cm LVOT diameter2.0 cm LVPW (d) 1.1 cm HR 87bpm Ao Sinus 3.3 cm LA Vol index 27ml/m2 Ao Sinus ULN 3.6 cm * RA Vol index 41ml/m2 Asc Ao 3.6 cm RV Basal Diam4.1 cm Asc Ao ULN 3.6 cm * * Input BSA outside of range, reported values correspond to BSA = 1.9 Diastology: Mitral Tissue Doppler E Peak 0.7 m/s e', Septum 0.12 m/s A Peak 0.7 m/s e', Lateral 0.14 m/s E/A 1.1 E/e' Average 5.35 DT 128 msec Aortic Valve: Vmax 1.7 m/s CLAUDINE (V) 2.63 cm VTI 0.29 m CLAUDINE (I) 2.56 cm LVOT V max 1.4 m/s Max PG 11 mmHg LVOT VTI 0.24 m Mean PG 6 mmHg SV 74 ml Dim Index 0.82 SV index 35 ml/m CO 6.4 l/min CI 3.1 l/min/m Mitral Valve: MVA 5.9 cm MV P 1/2 37 msec Tricuspid Valve and estimated PA pressures: TR Vmax 2.8 m/s TAPSE 2.8 cm TR maxG 31 mmHg . This study was interpreted by an [facility] accredited facility. Final us Haresh Lobo MD ECHO ORD Final R esult * US ABDOMEN LIMITED RUQ W DUPLEX PORTABLE (05/26/2025 7:33 AM CDT) Anatomical Region Laterality Modality LIVER Ultrasound 05/26/2025 8:59 AM CDT Impressions 05/26/2025 8:59 AM CDT Normal right upper quadrant ultrasound. Normal hepatic duplex Doppler. Dictated by Norma Smith MD @ 05/26/2025 8:59:42 AM (Electronically Signed) Narrative 05/26/2025 8:59 AM CDT For Patients: As a result of the Cures Act, medical imaging exams and procedure reports are released immediately into your electronic medical record. You may view this report before your referring provider. If you have questions, please contact your health care provider. INDICATION: Elevated LFTs. Recent massive pulmonary emboli and ECMO decannulation COMPARISON: Chest radiograph 05/25/2025, abdominal radiograph 05/23/2025, CT chest 05/23/2025 TECHNIQUE: Grover-scale, color Doppler, and duplex Doppler ultrasound of the liver and hepatic vasculature. Grayscale and color Doppler ultrasound of the right upper quadrant and spleen. FINDINGS: Pancreas: Well seen and normal. Liver: Normal hepatic echogenicity and normal echotexture. Focal fatty infiltration near the falciform ligament. No mass. Patent portal vein with normal directional flow. Gallbladder and bile ducts: The gallbladder is normal. No stones or sludge. Normal wall thickness. No intrahepatic or extrahepatic biliary ductal dilatation. The common bile duct measures 3 millimeters at the mehnaz hepatis mm. The right kidney measures 11 centimeters in length. No mass or cyst. No urinary tract dilatation or urinary tract calculi. The spleen measures 11 centimeters in length. Ascites: None. Aorta: Normal caliber. Normal color Doppler flow. The hepatic artery demonstrates a normal arterial waveform on duplex Doppler with a resistive index of 0.6, normal. Normal patent right and left hepatic arteries with normal arterial waveforms and resistive indices. The portal venous system (including the splenic vein) demonstrates normal directional blood flow and a normal portal venous waveform. The superior mesenteric vein is not well seen at the midline due to bowel gas. The hepatic veins and intrahepatic IVC are patent. Generally normal hepatic waveforms with some limitations due to respiratory variations. Procedure Note Norma Smith MD - 05/26/2025 For Patients: As a result of the Cures Act, medical imagingexams and procedure reports are released immediately into your electronicmedical record. You may view this report before your referring provider.If you have questions, please contact your health care provider. INDICATION: Elevated LFTs. Recent massive pulmonary emboli and ECMO decannulation COMPARISON: Chest radiograph 05/25/2025, abdominal radiograph 05/23/2025, CT chest05/23/2025 TECHNIQUE: Grover-scale, color Doppler, and duplex Doppler ultrasound of the liver andhepatic vasculature. Grayscale and color Doppler ultrasound of the right upper quadrant andspleen. FINDINGS: Pancreas: Well seen and normal. Liver: Normal hepatic echogenicity and normal echotexture. Focal fattyinfiltration near the falciform ligament. No mass. Patent portal vein withnormal directional flow. Gallbladder and bile ducts: The gallbladder is normal. No stones orsludge. Normal wall thickness. No intrahepatic or extrahepatic biliaryductal dilatation. The common bile duct measures 3 millimeters at theporta hepatis mm. The right kidney measures 11 centimeters in length. No mass or cyst. Nourinary tract dilatation or urinary tract calculi. The spleen measures 11 centimeters in length. Ascites: None. Aorta: Normal caliber. Normal color Doppler flow. The hepatic artery demonstrates a normal arterial waveform on duplexDoppler with a resistive index of 0.6, normal. Normal patent right andleft hepatic arteries with normal arterial waveforms and resistiveindices. The portal venous system (including the splenic vein) demonstrates normaldirectional blood flow and a normal portal venous waveform. The superiormesenteric vein is not well seen at the midline due to bowel gas. The hepatic veins and intrahepatic IVC are patent. Generally normalhepatic waveforms with some limitations due to respiratory variations. IMPRESSION: Normal right upper quadrant ultrasound. Normal hepatic duplex Doppler. Dictated by Norma Smith MD @ 05/26/2025 8:59:42 AM (Electronically Signed) us Jasmyne Ornelas DISTRIBUTION COORDINATOR US Final Res ult * (ABNORMAL) LACTATE ARTERIAL (05/26/2025 4:59 AM CDT) Only the most recent of5 resultswithin the time period is included. LACTATE,ARTERI AL 2.7(HH) 0.5 - 1.6 mmol/L 05/26/2025 5:46 AM CDT [facility] Blood BLOOD SPECIMEN / Unknown Diversion Device / Unknown 05/26/2025 4:59 AM CDT 05/26/2025 5:17 AM CDT us Jasmyne Ornelas DISTRIBUTION COORDINATOR CHEMISTRY Final Res ult [facility] [address] [place] [id number], [place] * SCAN-CARDIAC STRIP (05/25/2025 3:32 PM CDT) us Scanner OTHER Final Result * XR Chest 1 view portable (05/25/2025 4:59 AM CDT) Only the most recent of2 resultswithin the time period is included. Anatomical Region Laterality Modality HEART, THORAX, CHEST Digital Rad iography 05/25/2025 6:19 AM CDT Impressions 05/25/2025 6:19 AM CDT 1. Lungs clear. 2. Pulmonary artery catheter is in good position. 3. There is some mild subglottic edema after extubation. Dictated by Norma Smith MD @ May 25 2025 6:19AM (Electronically Signed) [email or web address] Narrative 05/25/2025 6:19 AM CDT For Patients: As a result of the Cures Act, medical imaging exams and procedure reports are released immediately into your electronic medical record. You may view this report before your referring provider. If you have questions, please contact your health care provider. INDICATION: Congestive heart failure COMPARISON: 05/23/2025 TECHNIQUE: 1 view chest radiograph. FINDINGS: Devices: Extubation. Right IJ pulmonary artery catheter distal tip right pulmonary artery. Lower extremity approach ECMO cannula removed. Lung volumes are good. No focal or diffuse opacities. No pulmonary edema. No pleural effusion. No pneumothorax. No pneumomediastinum. Heart size is large but similar to prior. Normal upper mediastinal contours. There is some subglottic tracheal narrowing. Bones: No acute findings. Procedure Note Norma Smiht MD - 05/25/2025 For Patients: As a result of the Cures Act, medical imagingexams and procedure reports are released immediately into your electronicmedical record. You may view this report before your referring provider.If you have questions, please contact your health care provider. INDICATION: Congestive heart failure COMPARISON: 05/23/2025 TECHNIQUE: 1 view chest radiograph. FINDINGS: Devices: Extubation. Right IJ pulmonary artery catheter distal tip rightpulmonary artery. Lower extremity approach ECMO cannula removed. Lung volumes are good. No focal or diffuse opacities. No pulmonary edema.No pleural effusion. No pneumothorax. No pneumomediastinum. Heart size is large but similar to prior. Normal upper mediastinalcontours. There is some subglottic tracheal narrowing. Bones: No acute findings. IMPRESSION: 1. Lungs clear. 2. Pulmonary artery catheter is in good position. 3. There is some mild subglottic edema after extubation. Dictated by Norma Smith MD @ May 25 2025 6:19AM (Electronically Signed) [email or web address] Jasmyne Ornelas DISTRIBUTION COORDINATOR GENERAL IMAGING Final Res ult * (ABNORMAL) O2 SATURATION,MEASURED (05/25/2025 4:23 AM CDT) Only the most recent of6 resultswithin the time period is included. O2 SATURATION,MARLENE SURED 77 % 05/25/2025 4:43 AM CDT [facility] HEMOGLOBIN,BLO OD GAS 8.9(L) 12.0 - 16.0 g/dL 05/25/2025 4:43 AM CDT [facility] TR[facility] LABORATORY SOURCE, O2M Mixed Venous 05/25/2025 4:43 AM CDT [facility] TRAL LABORATORY Blood BLOOD SPECIMEN / Unknown Non-Lab Venipuncture / Unknown 05/25/2025 4:23 AM CDT 05/25/2025 4:38 AM CDT Narrative [facility] - 05/25/2025 4:43 AM CDT Reference Range for: Arterial Source (94-98) Non-Arterial Source (70-75) us Jadiel Lucero MD CHEMISTRY Final R esult Performing Organization Address City/[facility]/ZIP Co de Phone Number [facility] [address] [address], [place] * (ABNORMAL) COMPREHENSIVE BLOOD GAS MIXED VENOUS (05/24/2025 10:09 PM CDT) Only the most recent of5 resultswithin the time period is included. O2 SATURATION, MEASURED, MIXED VENOUS 68(L) 70 - 75 % 05/24/2025 10:09 PM CDT [facility] LAB[facility] PATIENT TEMPERATURE 37.0 Degrees C 05/24/2025 10:09 PM CDT [facility] COLLECTION SITE PULMONARY ARTERY 05/24/2025 10:09 PM CDT [facility] HEMOGLOBIN,BLOO D GAS 8.9(L) 12.0 - 16.0 g/dL 05/24/2025 10:09 PM CDT [facility] Blood BLOOD SPECIMEN / Unknown 05/24/2025 10:09 PM CDT 05/24/2025 10:09 PM CDT us Jadiel Lucero MD CHEMISTRY Final R esult Performing Organization Address City/[facility]/ZIP Co de Phone Number [facility] [address] [address], [place] * SCAN-CARDIAC STRIP (05/24/2025 6:23 PM CDT) us Scanner OTHER Final Result * (ABNORMAL) ARTERIAL BLOOD GAS (05/24/2025 2:05 PM CDT) Only the most recent of2 resultswithin the time period is included. PH, ARTERIAL 7.36 7.35 - 7.45 05/24/2025 2:18 PM CDT [facility] TRAL LABORATORY PCO2, ARTERIAL 38 32 - 45 mmHg 05/24/2025 2:18 PM CDT [facility] PO2, ARTERIAL 136(H) 83 - 108 mmHg 05/24/2025 2:18 PM CDT [facility] HCO3, ARTERIAL 22 21 - 28 mmol/L 05/24/2025 2:18 PM CDT [facility] BASE EXCESS, ARTERIAL -3.6(L) -2.0 - 3.0 05/24/2025 2:18 PM CDT [facility] O2 SATURATION, ARTERIAL 100(H) 94 - 98 % 05/24/2025 2:18 PM CDT [facility] INSPIRED O2 05/24/2025 2:18 PM CDT [facility] Comment:Unit of Measure: Lit ers (L) if <=20; Percent (%) if >20 PATIENT TEMPERATURE 37.0 Degrees C 05/24/2025 2:18 PM T [facility] Blood ARTERIAL BLOOD SPECIMEN / Unknown Non-Lab Venipuncture / Unknown 05/24/2025 2:05 PM CDT 05/24/2025 2:13 PM CDT us Jadiel Lucero MD CHEMISTRY Final R esult [facility] [address] [place] [address], * (ABNORMAL) CK Total ECMO (05/24/2025 12:00 PM CDT) Only the most recent of5 resultswithin the time period is included. CK,TOTAL 195(H) 26 - 192 IU/L 05/24/2025 12:37 PM CDT [facility] Blood BLOOD SPECIMEN / Unknown Non-Lab Venipuncture / Unknown 05/24/2025 12:00 PM CDT 05/24/2025 12:10 PM CDT Jasmyne Ornelas NP CHEMISTRY Final Res ult Performing Organization Address [facility] Co de Phone Number [facility] [address] [place] [address], [place] * (ABNORMAL) FIBRINOGEN,QUANTITATIVE (05/24/2025 10:42 AM CDT) Only the most recent of3 resultswithin the time period is included. FIBRINOGEN,JONY NTITATIVE 127(L) 193 - 401 mg/dL 05/24/2025 11:32 AM CDT [facility] Blood BLOOD SPECIMEN / Unknown Non-Lab Venipuncture / Unknown 05/24/2025 10:42 AM CDT 05/24/2025 10:48 AM CDT Jadiel Lucero MD HEMATOLOGY Final R esult Performing Organization Address [facility] Co de Phone Number [facility] [address] [place] [address], [place] * Beta 2 Glycoprotein NARINDER (05/24/2025 8:48 AM CDT) Beta 2 GP1 Ab IgA <4.0 <=20.0 CU 05/26/2025 11:55 AM CDT [facility] Beta 2 GP1 Ab IgG <6.4 <=20.0 CU 05/26/2025 11:55 AM CDT [facility] Beta 2 GP1 Ab IgM <1.1 <=20.0 CU 05/26/2025 11:55 AM CDT [facility] Blood BLOOD SPECIMEN / Unknown Non-Lab Venipuncture / Unknown 05/24/2025 8:48 AM CDT 05/24/2025 9:06 AM CDT Narrative [facility] - 05/26/2025 11:55 AM CDT Negative <=20 Positive >20 These results were obtained with the Dep[employer] Quanta Flash chemiluminescent immunoassay. Values obtained with different manufacturers' assay methods may not be used interchangeably. The magnitude of the reported autoantibody levels cannot always be correlated to an endpoint titer. vJ Baron MD SEND OUTS Final Result Performing Organization Address [facility]/ZIP Co de Phone Number [facility] [address] [place] [address], [place] * (ABNORMAL) Cardiolipin Antibody (aka Anticardiolipin Antibody) (05/24/2025 8:48 AM CDT) Cardiolipin IgA 2.2 <=20.0 CU 11:55 AM CDT [facility] TR[facility] LAB[facility]AT[facility] Cardiolipin IgG 28.2(H) <=20.0 CU 11:55 AM CDT [facility] Cardiolipin IgM 1.5 <=20.0 CU 11:55 AM CDT [facility] Blood BLOOD SPECIMEN / Unknown Non-Lab Venipuncture / Unknown 05/24/2025 8:48 AM CDT 05/24/2025 9:06 AM CDT Narrative [facility] - 05/26/2025 11:55 AM CDT Interpretation: Moderate to high titers (40 GPL or MPL by LESLIE assays) of aCL correlate better with aPL-related clinical events than do lower titers; IgG is more strongly associated with clinical events than is IgM ([facility] 378(21):2010). Dry House Attendant's studies have shown the following correlation between anti- cardiolipin antibody levels quantified by the BioFlash Chemiluminescent method compared to LESLIE (Antibodies 2016,5,14): For IgG aCL: 95 CU corresponds to 40 GPL For IgM aCL: 31 CU corresponds to 40 MPL Jv Baron MD SEND OUTS Final Result Performing Organization Address [facility]/ZIP Co de Phone Number [facility] [address] [place] [address], [place] * (ABNORMAL) Lupus Anticoagulant (05/24/2025 8:48 AM CDT) PROTIME 12.3 10.6 - 12.4 sec 05/24/2025 1:55 PM CDT [facility] TRAL LABORATORY INR 1.1 <1.3 05/24/2025 1:55 PM CDT [facility]AL LABORATORY THROMBIN TIME >80(H) <16 sec 05/24/2025 1:55 PM CDT [facility] DRVVT RATIO 1.28(H) <=1.20 05/24/2025 1:55 PM CDT [facility] LAB[facility] SCT RATIO 0.88 <=1.16 05/24/2025 1:55 PM CDT [facility] APTT 116(H) 25 - 36 sec 05/24/2025 1:55 PM CDT [facility] Blood BLOOD SPECIMEN / Unknown Non-Lab Venipuncture / Unknown 05/24/2025 8:48 AM CDT 05/24/2025 9:07 AM CDT [facility]ative [facility] - 05/24/2025 1:55 PM CDT LUPUS ANTICOAGULANT DETECTED Lupus anticoagulant testing results may be falsely positive in patients on anti-coagulation therapy. The diagnosis of anti-phospholipid syndrome requires two positive lupus anticoagulant test results obtained at least 12 weeks apart, which have preferably been performed when the patient is off anti-coagulation. Testing for Cardiolipin antibodies ([id number]/CRD) and Beta-2 Glycoprotein 1 antibodies ([id number]) is strongly recommended. Note that different PT/INR reagents available for use in labs have significant variability in their sensitivity to lupus anticoagulants. In general only 10-15% of lupus anticoagulants affect the INR, leading to falsely elevated INR levels. Only in those limited cases monitoring warfarin therapy by chromogenic factor X levels would be appropriate. Otherwise, PT/INR would still be the right monitoring test in patients with normal baseline INR. For any question or consultation: consider contacting the [facility] Thrombophilia and Coagulation Clinic. All anticoagulants (Warfarin, High level Heparin, Direct Oral Anticoagulants, Direct Thrombin Inhibitors) cause false positive lupus anticoagulant test results. We recommend disregarding lupus anticoagulant results obtained while patient is on any form of anticoagulation. For [facility] patients consider consulting with Anticoagulation and Thrombophilia Clinic at [phone]. Ancillary studies indicate the likely presence of an anticoagulant medication. us Jv Baron MD SEND OUTS Final Result Performing Organization Address City/[facility]/ZIP Co de Phone Number [facility] [address] [address], [place] * Protein S (05/24/2025 8:48 AM CDT) [facility] PROTEIN S, FREE 111 55 - 124 % 05/24/2025 1:52 PM CDT [facility] Blood BLOOD SPECIMEN / Unknown Non-Lab Venipuncture / Unknown 05/24/2025 8:48 AM CDT 05/24/2025 9:07 AM CDT Jv Baron MD SEND OUTS Final Result Performing Organization Address [facility] Co de Phone Number [facility] [address] [address], [place] * Factor V Leiden (05/24/2025 8:48 AM CDT) [facility] FACTOR V LEIDEN Mutation not detected Mutation not detected 05/30/2025 6:10 AM CDT [facility] LAB[facility] INTERPRETATION Patient does not carry the Leiden ([id number]) mutation on either copy of the Factor V (F5) gene. 05/30/2025 6:10 AM CDT [facility] Blood BLOOD SPECIMEN / Unknown Non-Lab Venipuncture / Unknown 05/24/2025 8:48 AM CDT 05/24/2025 9:07 AM CDT Narrative [facility] - 05/30/2025 6:10 AM CDT Method: angie Factor II and Factor V Test us Jv Baron MD LABORATORY Final Result [facility] [address] [place] [address], [place] * Factor ll Gene Mutation (05/24/2025 8:48 AM CDT) FACTOR II GENE MUTATION Mutation not detected Mutation not detected 05/30/2025 6:10 AM CDT [facility] INTERPRETATION Patient does not carry the [id number] mutation on either copy of the Factor II (F2) gene. 05/30/2025 6:10 AM CDT [facility] Blood BLOOD SPECIMEN / Unknown Non-Lab Venipuncture / Unknown 05/24/2025 8:48 AM CDT 05/24/2025 9:07 AM CDT Narrative [facility] - 05/30/2025 6:10 AM CDT Method: angie Factor II and Factor V Test Jv Baron MD SEND OUTS Final Result Performing Organization Address City/[facility]/ZIP Co de Phone Number [facility] [address] [address], [place] * Protein C (05/24/2025 8:48 AM CDT) Pathologist [facility] PROTEIN C ACTIVITY 135 70 - 150 % 05/24/2025 1:52 PM CDT [facility] Blood BLOOD SPECIMEN / Unknown Non-Lab Venipuncture / Unknown 05/24/2025 8:48 AM CDT 05/24/2025 9:07 AM CDT Jv Baron MD SEND OUTS Final Result [facility] [address] [place] [address], [place] * Antithrombin III (05/24/2025 8:48 AM CDT) ANTITHROMBIN III 89 80 - 135 % 05/24/20 1:52 PM CDT [facility] Blood BLOOD SPECIMEN / Unknown Non-Lab Venipuncture / Unknown 05/24/2025 8:48 AM CDT 05/24/2025 9:07 AM CDT us Jv Baron MD HEMATOLOGY Final Result [facility] [address] [place] [address], * (ABNORMAL) COMPREHENSIVE BLOOD GAS ARTERIAL (05/24/2025 8:09 AM CDT) Only the most recent of9 resultswithin the time period is included. PH, ARTERIAL 7.49(H) 7.35 - 7.45 05/24/2025 8:09 AM CDT [facility] PCO2, ARTERIAL 30(L) 32 - 45 mmHg 05/24/2025 8:09 AM CDT [facility] PO2, ARTERIAL 153(H) 83 - 108 mmHg 05/24/2025 8:09 AM CDT [facility] HCO3, ARTERIAL 23 21 - 28 mmol/L 05/24/2025 8:09 AM CDT [facility] BASE EXCESS, ARTERIAL 0.4 -2.0 - 3.0 05/24/2025 8:09 AM CDT [facility] O2 SATURATION, ARTERIAL 100(H) 94 - 98 % 05/24/2025 8:09 AM CDT [facility] INSPIRED O2 30 05/24/2025 8:09 AM CDT [facility] Comment:Unit of Measure: Lit ers (L) if <=20; Percent (%) if >20 PATIENT TEMPERATURE 37.0 Degrees C 05/24/2025 8:09 AM CDT [facility] Blood BLOOD SPECIMEN / Unknown 05/24/2025 8:09 AM CDT 05/24/2025 8:10 AM CDT us Jadiel Lucero MD CHEMISTRY Final R esult Performing Organization Address City/[facility] Co de Phone Number [facility] [address] [address], [place] * (ABNORMAL) LD Total ECMO (05/24/2025 4:06 AM CDT) Only the most recent of2 resultswithin the time period is included. LD,TOTAL 289(H) 135 - 214 IU/L 05/24/2025 5:04 AM CDT [facility] Blood BLOOD SPECIMEN / Unknown Non-Lab Venipuncture / Unknown 05/24/2025 4:06 AM CDT 05/24/2025 4:18 AM CDT Jasmyne Ornelas DISTRIBUTION COORDINATOR CHEMISTRY Final Res ult Performing Organization Address [facility] Co de Phone Number [facility] [address] [address], [place] * Phosphorus ECMO (05/24/2025 4:06 AM CDT) PHOSPHORUS 2.9 2.5 - 4.5 mg/dL 05/24/2025 4:47 AM CDT [facility] Blood BLOOD SPECIMEN / Unknown Non-Lab Venipuncture / Unknown 05/24/2025 4:06 AM CDT 05/24/2025 4:18 AM CDT Jasmyne Ornelas DISTRIBUTION COORDINATOR CHEMISTRY Final Res ult Performing Organization Address City/[facility] Co de Phone Number [facility] [address] [address], [place] * Platelet Count ECMO (05/24/2025 12:25 AM CDT) Only the most recent of3 resultswithin the time period is included. PLATELET COUNT 167 140 - 440 thou/cu mm 05/24/2025 12:42 AM CDT [facility] MPV 9.7 6.5 - 11.0 fL 05/24/2025 12:42 AM CDT [facility] Blood BLOOD SPECIMEN / Unknown Non-Lab Venipuncture / Unknown 05/24/2025 12:25 AM CDT 05/24/2025 12:33 AM CDT us Jasmyne Ornelas NP HEMATOLOGY Final Res ult [facility] [address] [place] [address], [place] * US Venous Lower Extremity Bilateral Portable (05/23/2025 4:42 PM CDT) Anatomical Region Laterality Modality LEGS, LEG L, LEG R Ultrasound 05/23/2025 6:24 PM CDT Impressions 05/23/2025 6:24 PM CDT 1. Nonocclusive DVT in the left proximal femoral vein. Additional DVT within one of the left peroneal veins in the mid calf. 2. Negative for acute DVT in the right lower extremity. 3. Findings discussed with Miki Tipton at 6:23 p.m. on 05/23/2025. Dictated by Gwen Martines MD @ 05/23/2025 6:24:20 PM (Electronically Signed) Narrative 05/23/2025 6:24 PM CDT For Patients: As a result of the Cures Act, medical imaging exams and procedure reports are released immediately into your electronic medical record. You may view this report before your referring provider. If you have questions, please contact your health care provider. INDICATION: Swelling. COMPARISON: None. TECHNIQUE: A compression venous ultrasound exam was performed of both lower extremities using grover scale imaging, color Doppler, and spectral Doppler analysis. FINDINGS: Right: Sonographic imaging of the right lower extremity demonstrates normal compressibility and color Doppler venous blood flow within the common femoral, femoral, deep femoral, and proximal greater saphenous veins. At a lower level the popliteal, peroneal, and posterior tibial veins also show normal compressibility and color Doppler venous blood flow. Left: Sonographic imaging of the left lower extremity demonstrates normal compressibility and color Doppler venous blood flow within the common femoral, deep femoral, popliteal, posterior tibial, and proximal greater saphenous veins. There is short segment nonocclusive thrombus in the proximal femoral vein. There is thrombus within one of the peroneal veins in the mid calf. Procedure Note Gwen Martines MD - 05/23/2025 For Patients: As a result of the Cures Act, medical imagingexams and procedure reports are released immediately into your electronicmedical record. You may view this report before your referring provider.If you have questions, please contact your health care provider. INDICATION: Swelling. COMPARISON: None. TECHNIQUE: A compression venous ultrasound exam was performed of both lowerextremities using grover scale imaging, color Doppler, and spectral Doppleranalysis. FINDINGS: Right: Sonographic imaging of the right lower extremity demonstrates normalcompressibility and color Doppler venous blood flow within the commonfemoral, femoral, deep femoral, and proximal greater saphenous veins. At alower level the popliteal, peroneal, and posterior tibial veins also shownormal compressibility and color Doppler venous blood flow. Left: Sonographic imaging of the left lower extremity demonstrates normalcompressibility and color Doppler venous blood flow within the commonfemoral, deep femoral, popliteal, posterior tibial, and proximal greatersaphenous veins. There is short segment nonocclusive thrombus in theproximal femoral vein. There is thrombus within one of the peroneal veinsin the mid calf. IMPRESSION: 1. Nonocclusive DVT in the left proximal femoral vein. Additional DVTwithin one of the left peroneal veins in the mid calf. 2. Negative for acute DVT in the right lower extremity. 3. Findings discussed with Miki Tipton at 6:23 p.m. on 05/23/2025. Dictated by Gewn Martines MD @ 05/23/2025 6:24:20 PM (Electronically Signed) us Hilario COLVIN US Final Result * (ABNORMAL) TROPONIN T (HS) ONE TIME (05/23/2025 2:48 PM CDT) TROPONIN T HS 255(H) 6-10 ng/L ng/L 05/23/2025 3:32 PM CDT [facility] Blood BLOOD SPECIMEN / Unknown Line/Port / Unknown 05/23/2025 2:48 PM CDT 05/23/2025 2:59 PM CDT us Jasmyne Ornelas DISTRIBUTION COORDINATOR CHEMISTRY Final Res ult Performing Organization Address [facility]/ZIP Co de Phone Number [facility] [address] [place] [address], [place] * 12 Lead EKG (05/23/2025 2:12 PM CDT) Only the most recent of2 resultswithin the time period is included. Interpretation Normal sinus rhythm Normal ECG When compared with ECG of 23-May-2025 09:25, (Unconfirmed ) Non-specific change in ST segment in Lateral leads T wave inversion less evident in Anterior leads BEYOND NOW Ventricular Rate 98 BPM BEYOND NOW Atrial Rate 98 BPM BEYOND NOW P-R Interval 124 ms BEYOND NOW QRS Duration 86 ms BEYOND NOW QT 362 ms BEYOND NOW QTc 462 ms BEYOND NOW P [place] 64 degrees BEYOND NOW R [place] 66 degrees BEYOND NOW T [place] 18 degrees BEYOND NOW 05/23/2025 2:12 PM CDT 05/24/2025 3:14 PM CDT Hilario COLVIN EKG ORD Final Result Performing Organization Address [facility] Co de Phone Number BEYOND NOW [place], [place] * XR Abdomen 1 View Portable (05/23/2025 1:17 PM CDT) Anatomical Region Laterality Modality Abdomen Digital Radiogra phy 05/23/2025 1:31 PM CDT Narrative 05/23/2025 1:31 PM CDT For Patients: As a result of the 21st Century Cures Act, medical imaging exams and procedure reports are released immediately into your electronic medical record. You may view this report before your referring provider. If you have questions, please contact your health care provider. INDICATION: ECMO cannula. Evaluate placement. TECHNIQUE: Supine portable AP image of the abdomen COMPARISON: Today`s chest x-ray FINDINGS: Right iliac ECMO cannula extending superiorly in the vena cava off the field of view. Smaller left iliac ECMO cannula with tip projected over the left sacral wing. Bowel-gas pattern within normal limits. CONCLUSION: ECMO cannulas, as above Dictated by Bonilla Aparicio MD @ 05/23/2025 1:31:55 PM (Electronically Signed) Procedure Note Bonilla Aparicio MD - 05/23/2025 For Patients: As a result of the Cures Act, medical imagingexams and procedure reports are released immediately into your electronicmedical record. You may view this report before your referring provider.If you have questions, please contact your health care provider. INDICATION: ECMO cannula. Evaluate placement. TECHNIQUE: Supine portable AP image of the abdomen COMPARISON: Today`s chest x-ray FINDINGS: Right iliac ECMO cannula extending superiorly in the vena cava off thefield of view. Smaller left iliac ECMO cannula with tip projected over theleft sacral wing. Bowel-gas pattern within normal limits. CONCLUSION: ECMO cannulas, as above Dictated by Bonilla Aparicio MD @ 05/23/2025 1:31:55 PM (Electronically Signed) us Jasmyne Ornelas NP GENERAL IMAGING Final Res ult * (ABNORMAL) TROPONIN T(HS) ACUTE W/2HR REFLEX (05/23/2025 12:57 PM CDT) Only the most recent of2 resultswithin the time period is included. TROPONIN T HS 211(H) 6-10 ng/L ng/L 05/23/2025 1:41 PM CDT [facility] Blood BLOOD SPECIMEN / Unknown Non-Lab Venipuncture / Unknown 05/23/2025 12:57 PM CDT 05/23/2025 1:11 PM CDT Narrative [facility] - 05/23/2025 1:41 PM CDT hs-cTnT (Elecsys Troponin T Gen 5) concentration (s) above the sex-specific 99th percentile (16 ng/L or greater for males or 11 ng/L or greater for females) are indicative of myocardial injury. If initial hs-cTnT <=100 ng/L at presentation, a 0h/2h ABSOLUTE (ng/L) delta change (rising or falling) of >=10 ng/L suggests a significant change, whereas a 0h/2h delta change <=3 ng/L suggests no significant change. If initial hs-cTnT >100 ng/L at presentation, a 0h/2h/ RELATIVE (percent, %) delta change of 20% is suggested to distinguish patients with acute vs. chronic myocardial injury. There are multiple etiologies that can cause hs-cTnT increases above the 99th percentile (myocardial injury) other than acute myocardial infarction. Clinical context and careful clinical evaluation are critical for diagnosis and risk-stratification. The diagnosis of acute myocardial infarction requires a rising and/or falling pattern in hs-cTnT concentrations with at least one value above the sex-specific 99th percentile PLUS at least one of the following clinical criteria: ischemic symptoms, new or presumed new significant ST-T wave changes or new LBBB, development of pathological Q waves, imaging evidence of new loss of viable myocardium or new regional wall motion abnormality, or identification of intracoronary atherothrombosis or an acute angiographic culprit on coronary angiography. In appropriate low-risk patients with a non-ischemic electrocardiogram without active chest pain with a symptom onset >3-hours without recurrence, a single initial hs-cTnT<6 ng/L identifies patient with a very low risk in emergency department patient population. us Jasmyne Ornelas NP CHEMISTRY Final Res ult [facility] [address] [place] [address], * (ABNORMAL) CBC W PLT NO DIFF (05/23/2025 12:57 PM CDT) Only the most recent of2 resultswithin the time period is included. [facility] WHITE BLOOD COUNT 19.9(H) 4.5 - 11.0 thou/cu mm 05/23/2025 1:17 PM CDT [facility] RED BLOOD COUNT 4.12 4.00 - 5.20 mil/cu mm 05/23/2025 1:17 PM CDT [facility] HEMOGLOBIN 11.9(L) 12.0 - 16.0 g/dL 05/23/2025 1:17 PM CDT [facility] HEMATOCRIT 35.8 33.0 - 51.0 % 05/23/2025 1:17 PM CDT [facility] MCV 87 80 - 100 fL 05/23/2025 1:17 PM CDT [facility] MCH 28.9 26.0 - 34.0 pg 05/23/2025 1:17 PM CDT [facility] MCHC 33.2 32.0 - 36.0 g/dL 05/23/2025 1:17 PM CDT [facility] RDW 13.9 11.5 - 15.5 % 05/23/2025 1:17 PM CDT [facility] PLATELET COUNT 186 140 - 440 thou/cu mm 05/23/2025 1:17 PM CDT [facility] MPV 9.4 6.5 - 11.0 fL 05/23/2025 1:17 PM CDT [facility] NRBC 0.0 % 05/23/2025 1:17 PM CDT [facility] ABS NRBC 0.0 thou /cu mm 05/23/2025 1:17 PM CDT [facility] Blood BLOOD SPECIMEN / Unknown Non-Lab Venipuncture / Unknown 05/23/2025 12:57 PM CDT 05/23/2025 1:11 PM CDT Narrative [facility] - 05/23/2025 1:17 PM CDT Obtain before initiating IV heparin therapy if not done within previous 24 hours. Obtain before initiating IV heparin therapy if not done within previous 24 hours. us Jadiel Lucero MD HEMATOLOGY Final R esult [facility] [address] [place] [address], * (ABNORMAL) URINALYSIS MICROSCOPIC (05/23/2025 12:56 PM CDT) RBC 0-2 0-2, None Seen /HPF 05/23/2025 2:39 PM CDT [facility] WBC 0-2 0-2, 3-5, None Seen /HPF 05/23/2025 2:39 PM CDT [facility] BACTERIA None Seen None Seen, Rare, Few Bacteria/ HPF 05/23/2025 2:39 PM CDT [facility] EPITHELIAL CELLS None Seen None Seen, Few Epi/HPF 05/23/2025 2:39 PM CDT [facility] HYALINE CASTS 6-10(A) 0-2, 3-5 /LPF 05/23/2025 2:39 PM CDT [facility] GRANULAR CASTS 0-2(A) (none) /LPF 05/23/2025 2:39 PM CDT [facility] Urine URINE SPECIMEN / Unknown Non-Blood / Unknown 05/23/2025 12:56 PM CDT 05/23/2025 1:13 PM CDT us Jasmyne Ornelas DISTRIBUTION COORDINATOR URINE Final Res ult [facility] [address] [place] [address], * (ABNORMAL) Urinalysis w Reflex Microscopic if Positive - ECMO (05/23/2025 12:56 PM CDT) COLOR Yellow Yellow Color 05/23/2025 2:39 PM CDT [facility] CLARITY Clear Clear Clarity 05/23/2025 2:39 PM CDT [facility] SPECIFIC GRAVITY,URINE >=1.030(A) 1.010, 1.015, 1.020, 1.025 05/23/2025 2:39 PM CDT [facility] PH,URINE 6.0 6.0, 7.0, 8.0, 5.5, 6.5, 7.5, 8.5 05/23/2025 2:39 PM CDT [facility] UROBILINOGEN, QUALITATIVE Normal Normal EU/dl 05/23/2025 2:39 PM CDT [facility] PROTEIN, URINE 100(A) Negative mg/dL 05/23/2025 2:39 PM CDT [facility] GLUCOSE, URINE Negative Negative mg/dL 05/23/2025 2:39 PM CDT [facility] KETONES,URINE Negative Negative mg/dL 05/23/2025 2:39 PM CDT [facility] BILIRUBIN,URI NE Negative Negative 05/23/2025 2:39 PM CDT [facility] OCCULT BLOOD,URINE Trace(A) Negative 05/23/2025 2:39 PM CDT [facility] NITRITE Negative Negative 05/23/2025 2:39 PM CDT [facility] LEUKOCYTE ESTERASE Negative Negative 05/23/2025 2:39 PM CDT [facility] Urine URINE SPECIMEN / Unknown Non-Blood / Unknown 05/23/2025 12:56 PM CDT 05/23/2025 1:13 PM CDT Jasmyne Ornelas DISTRIBUTION COORDINATOR URINE Final Res ult Performing Organization Address City/[facility]/ZIP Co de Phone Number [facility] [address] [place] [address], [place] * (ABNORMAL) ACTIVATED CLOTTING TIME [id number] ACT (05/23/2025 11:46 AM CDT) ACTIVATED CLOTTING TIME, POCT 332(H) 74 - 125 sec 05/23/2025 6:00 PM CDT [facility] Blood BLOOD SPECIMEN / Unknown 05/23/2025 11:46 AM CDT 05/23/2025 6:00 PM CDT us Hilario TAPIABS HEMATOLOGY Final Result Performing Organization Address City/[facility]/ZIP Co de Phone Number [facility] [address] [place] [id number], [place] * CVL CORONARY ANGIOGRAM POSS PCI (05/23/2025 11:18 AM CDT) Anatomical Region Laterality Modality Other 05/23/2025 11:1 8 AM CDT Narrative Transcriptions Dylan Marquez MD - 05/23/2025 12:40 PM CDT [facility] Cardiac Catheterization Report Name: SHANELL MENDEZ Event Date: 05/23/2025 11:18 Excellian ID #: [id number] PAULINE #: [id number] Patient Class: Outpatient Diagnostic Physician: DYLAN MARQUEZ [facility] Interventional Physician: DYLAN MARQUEZ [facility] Referring Physician: Date: 1985 Gender: Female Age: 39 Summary/Conclusions PRESENTATION / INDICATIONS * Emergent * Salvage * Massive PE, s/p recent half-dose TPA VASCULAR ACCESS * Using ultrasound guidance and a percutaneous technique, the rightfemoral vein was accessed. Ultrasound was used to confirm vessel patency,localizing needle into the lumen of the vessel. An image was saved for themedical record. * Using ultrasound guidance and a percutaneous technique, the left commonfemoral artery was accessed. Ultrasound was used to confirm vesselpatency, localizing needle into the lumen of the vessel. An image wassaved for the medical record. * Using ultrasound guidance and a percutaneous technique, the rightinternal jugular vein was accessed. Ultrasound was used to confirm vesselpatency, localizing needle into the lumen of the vessel. An image wassaved for the medical record. SPECIAL EQUIPMENT * VA ECMO: 17F LFA, 25F RFV * [place] Tab leave in via RIJ, 8F Further therapy from ICU and CCU, Dr Parra present Consent & Whitewright Protocol Whitewright protocol was followed. TIME OUT conducted just prior tostarting procedure confirmed patient identity, site/side, procedure,patient position, and availability of correct equipment and implants (ifapplicable). Staff Name Title DYLAN MARQUEZ [employer] Electrical Engineer Azucena Lundy RN Nurse Briseida Rose CVT Scrub Lindsay Myers BUFFER CHROME Director Of Scout Work Renee Montemayor CVT Monitor Procedures ? Ultrasound Guided Vascular Access ? Heart Assist Device ECMO ? Right Heart Catheterization Hemodynamics State: Baseline Pressures (mmHg) Site Systolic Diastolic End Diastolic A Wave V Wave Mean ART 175 106 123 RA 9 7 4 RV 30 3 10 PA 35 12 21 PCW 25 28 23 PCW 20 24 20 AO 119 79 94 Oximetry AO: 100 % PA: 87.9 % Cardiac Output Estimated Brooke Output: 12.26 l/min Estimated Brooke Index: 5.98 l/min/m2 Resistances PVR: [id number] PVR Index: 13.37 SVR: [id number] SVR Index: 1203.49 PVR/SVR: 0.01 Blood Flow Pulmonary (QP): 12.26 l/min Systemic (QS): 12.26 l/min Procedure Details Estimated Blood Loss: < 30 ml Specimen Collected: None Level of Sedation Achieved: Deep Procedure Start: 11:18 Procedure End: 11:55 Procedure Time: 37 min Fluoroscopy Time: 4.3 min Cumulative Air Kerma: 30 mGy DAP: 387 uGy/M2 Contrast: Omnipaque (low-osmolar), ml Physiologic Data Hemoglobin: 12.7 g/dl Weight: 93.9 kg BSA: 2.05 m2 Vascular Access Time Access Sheath Size 11:20 Left Femoral Artery, sheath inserted 11:21 Right Femoral Vein, sheath inserted. 11:49 Right IJ Vein, sheath inserted Medications Ordered and Administered Start Time Stop Time Medication Dose Units Route Ordered By Given By 10:57 (Existing) Norepinephrine (Levophed) 20 mcg per min IV 10:57 (Existing) Versed 2 mg per hr IV 10:57 (Existing) Fentanyl 100 mcg per hr IV 10:57 (Existing) Vasopressin 0.06 units per min IV 11:09 (Existing) Epinephrine 40 mcg per kg IV 11:16 (Existing) Epinephrine 15 mcg per kg IV 11:18 1% Lidocaine 1 ml Subcut Dylan Marquez Mario 11:24 (Existing) Epinephrine 10 mcg per kg IV Dylan Marquez Amanda RN 11:24 (Existing) Norepinephrine (Levophed) 15 mcg per min IV Dylan Marquez Amanda RN 11:25 Heparin 8000 units IV Dylan Marquez Amanda RN 11:28 (Existing) Norepinephrine (Levophed) 5 mcg per min IV Dylan Marquez Amanda RN 11:31 (Existing) Epinephrine 5 mcg per kg IV Dylan Marquez Amanda RN 11:31 (Existing) Vasopressin 0.04 units per min IV Jayla Marquez Amanda RN 11:32 (Existing) Epinephrine 0 mcg per kg IV Dylan Marquez Amanda RN 11:34 (Existing) Vasopressin 0 units per min IV Dylan Marquez Amanda RN 11:34 (Existing) Norepinephrine (Levophed) 0 mcg per min IV Dylan Marquez Amanda RN 11:34 (New Bag) Epinephrine 0 mcg per kg IV Dylan Marquez Amanda RN 11:39 Nicardipine (Cardene) 2 mg IC Dylan Marquez Amanda RN 11:43 (New Bag) Nipride (Nitroprusside) 0.5 mcg per kg IV Jayla Marquez Amanda RN 11:46 1% Lidocaine 1 ml Subcut Dylan Marquez Mario 11:48 (New Bag) Nipride (Nitroprusside) 1 mcg per kg IV Jayla Marquez Amanda RN 11:50 (New Bag) Nipride (Nitroprusside) 2 mcg per kg IV Jayla Marquez Amanda RN I personally monitored the patient?s conscious sedation during theprocedure. Conscious sedation starts with the first sedation medication dose ofFentanyl or Versed and ends when the procedure is completed, the patientis stable for recovery status, and the physician or other qualified healthcare professional providing the sedation ends personal [id number] time with the patient. The medications listed above were verbally ordered by me and read back tome as documented above. Refer to the procedure log report for additional case details. electronically signed on 05/23/2025 12:40:19 PM with status of Final Dylan Marquez MD [facility] [address] [place] [address] (p) (f) us Provider Referring CV IMAGING Edited Result - Final * (ABNORMAL) PRO-BNP (05/23/2025 9:39 AM CDT) PRO-BNP 1,860(H) <125 pg/mL 05/23/2025 10:10 AM CDT [facility] Blood BLOOD SPECIMEN / Unknown Butterfly / Unknown 05/23/2025 9:39 AM CDT 05/23/2025 9:42 AM CDT Narrative [facility] - 05/23/2025 10:10 AM CDT The following cut-points have been suggested for the use of proBNP for the diagnostic evaluation of heart failure (HF) in patient with acute dyspnea. Patients with eGFR >= 60 Diagnosis (rule in CHF) <50 Years Old 450 pg/mL 50 - 75 Years Old 900 pg/mL >75 Years Old 1800 pg/mL Exclusion (rule out CHF) Age Independent 300 pg/mL A cutoff of 1200 pg/mL for patients with an eGFR <60 yields a diagnostic sensitivity of 89% and specificity of 72% for acute congestive heart failure. Nate Meneses MD SEND OUTS Final R esult [facility] [address] [place] [id number] * CT CHEST PE STUDY (05/23/2025 9:23 AM CDT) Anatomical Region Laterality Modality CHEST, THORAX, HEART Computed To mography 05/23/2025 10:2 7 AM CDT Impressions 05/23/2025 10:27 AM CDT 1. Acute bilateral pulmonary embolism with prominent embolic burden. No focal lung infarction, infiltrate or pleural effusion. No pneumothorax. 2. Air present in the vascular system and heart likely related to difficulty with an IV access. Also air bubbles within and adjacent to the sternum, mediastinum and subcuticular tissues possibly related to sternal compression. No apparent rib or sternal fracture. Costochondral cartilage may have been disrupted although alignment is maintained. 3. Gastric bypass. Cholecystectomy. 4. Results were called to Dr. Meneses 05/23/2025 at 0930 hours. Please note that all CT scans at this facility use dose modulation, iterative reconstruction, and/or weight-based dosing when appropriate to reduce radiation dose to as low as reasonably achievable. Dictated by Concepcion Ibarra MD @ 05/23/2025 10:27:14 AM (Electronically Signed) Narrative 05/23/2025 10:27 AM CDT For Patients: As a result of the Cures Act, medical imaging exams and procedure reports are released immediately into your electronic medical record. You may view this report before your referring provider. If you have questions, please contact your health care provider. 1INDICATION: SOB. Suspect PE. . TECHNIQUE: CT chest pulmonary angiogram acquired with IV contrast. COMPARISON: None FINDINGS: Cardiovascular structures: Adequate enhancement of the pulmonary arteries. Large pulmonary embolic filling defects bilaterally involving both the lower and upper lobes. Heart size normal. Enlarged pulmonary artery consistent with pulmonary artery hypertension. No sign of aneurysm or dissection in the thoracic aorta. There is free air present in the left innominate, subclavian and axillary veins. Also the right subclavian vein. Also suggestion of subtle air in the anterior aortic arch and right ventricle. Few scattered air bubbles within and adjacent to the sternum, superior mediastinum and in the subcuticular tissue. Mediastinum and shaniqua: No mass or adenopathy. Thyroid normal. Lungs: Clear. No evidence of pulmonary infarction, infiltrate, nodularity or mass. Pleura and pericardium: No effusions. Chest wall and axilla: No mass or adenopathy. Bones: No significant findings. Upper abdomen: Gastric bypass. Cholecystectomy. Procedure Note Manohar Ibarra MD - 05/23/2025 For Patients: As a result of the Cures Act, medical imagingexams and procedure reports are released immediately into your electronicmedical record. You may view this report before your referring provider.If you have questions, please contact your health care provider. 1INDICATION: SOB. Suspect PE. . TECHNIQUE: CT chest pulmonary angiogram acquired with IV contrast. COMPARISON: None FINDINGS: Cardiovascular structures: Adequate enhancement of the pulmonary arteries.Large pulmonary embolic filling defects bilaterally involving both thelower and upper lobes. Heart size normal. Enlarged pulmonary arteryconsistent with pulmonary artery hypertension. No sign of aneurysm ordissection in the thoracic aorta. There is free air present in the left innominate, subclavian and axillaryveins. Also the right subclavian vein. Also suggestion of subtle air inthe anterior aortic arch and right ventricle. Few scattered air bubbleswithin and adjacent to the sternum, superior mediastinum and in thesubcuticular tissue. Mediastinum and shaniqua: No mass or adenopathy. Thyroid normal. Lungs: Clear. No evidence of pulmonary infarction, infiltrate, nodularityor mass. Pleura and pericardium: No effusions. Chest wall and axilla: No mass or adenopathy. Bones: No significant findings. Upper abdomen: Gastric bypass. Cholecystectomy. IMPRESSION: 1. Acute bilateral pulmonary embolism with prominent embolic burden. Nofocal lung infarction, infiltrate or pleural effusion. No pneumothorax. 2. Air present in the vascular system and heart likely related todifficulty with an IV access. Also air bubbles within and adjacent to thesternum, mediastinum and subcuticular tissues possibly related to sternalcompression. No apparent rib or sternal fracture. Costochondral cartilagemay have been disrupted although alignment is maintained. 3. Gastric bypass. Cholecystectomy. 4. Results were called to Dr. Meneses 05/23/2025 at 0930 hours. Please note that all CT scans at this facility use dose modulation,iterative reconstruction, and/or weight-based dosing when appropriate toreduce radiation dose to as low as reasonably achievable. Dictated by Concepcion Ibarra MD @ 05/23/2025 10:27:14 AM (Electronically Signed) Roya Gregg RN CT Final Result from Last 3 Months Insurance [place] [id number] [employer] [place] [id number] Advance Directives * Full Code (Latest Code Status on File) Date Activated Date Inactivated Comments 05/24/2025 7:09 AM 05/28/2025 2:42 PM Question Answer Comments Code Status Discussion: Reviewed Preferences * Full Code Date Activated Date Inactivated Comments 05/23/2025 11:21 AM 05/24/2025 7:09 AM Question Answer Comments Code Status Discussion: Unable to Assess Preferences, Provider to review later Care Teams Photogrammetric Engineer Relationship Specialty Start Date End Date Riddhi Brewster NP [address] [facility] [place] [phone] PCP - General Nurse Practitioner - Family 05/25/25
[2025-07-03 18:30] VITALS: BP 119/84; PULSE 75; RESP 20; TEMP 36.1; O2SAT 100; BMI 33.1
--- NOTE | 2025-07-03 18:38 | ED.GENADULT ---
HPI - General Adult General Time Seen by Provider: 18:38 Date Seen: 07/03/25 Chief complaint: Shortness of Breath/Dyspnea Stated complaint: tightness in chest/shortness of breath Time Seen by Provider: 07/03/25 18:38 Source: patient and RN notes reviewed Mode of arrival: ambulatory Limitations: no limitations Related Data Home Medications ?Medication ?Instructions ?Recorded ?Confirmed multivitamin with minerals 1 tab PO ONCE 01/28/23 06/02/25 (Multiple Vitamin-Minerals tablet) levonorgestrel (Mirena) 1 device intrauterine ONCE 09/26/24 06/02/25 fluticasone 250 mcg-salmeterol 50 1 ea inhalation BID 05/18/25 06/02/25 mcg/dose blistr powdr for inhalation fluticasone propionate 50 1 - 2 spray intranasal DAILY 05/18/25 06/02/25 mcg/actuation nasal spray,suspension triamcinolone acetonide 0.1 % applic topical BID 05/18/25 06/02/25 topical cream cetirizine 10 mg tablet 10 mg PO QDAY PRN 05/31/25 06/02/25 ferrous gluconate 240 mg (27 mg 240 mg PO QDAY 05/31/25 07/03/25 iron) tablet norethindrone acetate 5 mg tablet 5 mg PO DAILY 07/03/25 07/03/25 warfarin 5 mg tablet 5 mg PO DAILY 07/03/25 07/03/25 Previous Rx's ?Medication ?Instructions ?Recorded albuterol sulfate 90 mcg/actuation 2 puff inhalation Q4-6H PRN 09/26/24 aerosol inhaler shortness of breath or wheezing 90 days #8.5 grams fluticasone propionate 115 2 puff inhalation BID 90 days #12 09/26/24 mcg-salmeterol 21 mcg/actuation grams HFA inhaler (Advair HFA) sumatriptan succinate 100 mg tablet 100 mg PO ONCE #14 tabs 09/26/24 trazodone 50 mg tablet 100 mg (2 x 50 mg) PO QHS 90 days 12/08/24 #180 tabs ondansetron 4 mg disintegrating 4 mg PO Q8H PRN nausea and 04/24/25 tablet vomiting 30 days #30 tabs lorazepam 0.5 mg tablet (Ativan) 0.5 mg PO BID PRN agitation #20 05/31/25 tabs fluoxetine 20 mg capsule 40 mg (2 x 20 mg) PO QDAY #90 caps 06/05/25 apixaban 5 mg tablet (Eliquis) 5 mg PO BID #60 tabs 06/26/25 Allergies Allergy/AdvReac Type Severity Reaction Status Date / Time No Known Drug Allergies Allergy Verified 06/02/25 13:34 [facility] Medical History (Updated 05/30/25 @ 09:13 by Marquita Shell) History of DVT (deep vein thrombosis) ?Z86.718 - Personal history of other venous thrombosis and embolism (ICD-10) History of pulmonary embolus (PE) ?Z86.711 - Personal history of pulmonary embolism (ICD-10) Endometriosis ?N80.9 - Endometriosis, unspecified (ICD-10) Heavy menstrual bleeding ?N92.0 - Excessive and frequent menstruation with regular cycle (ICD-10) Abnormal Papanicolaou smear of cervix with positive human papilloma virus (HPV) test ?R87.618 - Other abnormal cytological findings on specimens from cervix uteri (ICD-10) Insomnia ?G47.00 - Insomnia, unspecified (ICD-10) Migraine ?G43.909 - Migraine, unspecified, not intractable, without status migrainosus (ICD-10) Iron deficiency anemia ?D50.9 - Iron deficiency anemia, unspecified (ICD-10) Anxiety ?F41.9 - Anxiety disorder, unspecified (ICD-10) Asthma ?J45.909 - Unspecified asthma, uncomplicated (ICD-10) Surgical History (Updated 05/30/25 @ 09:05 by Marquita Shell) History of colposcopy with cervical biopsy (2022) ?Z98.890 - Other specified postprocedural states (ICD-10) History of loop electrical excision procedure (LEEP) ?Z98.890 - Other specified postprocedural states (ICD-10) H/O wisdom tooth extraction ?K08.409 - Partial loss of teeth, unspecified cause, unspecified class (ICD-10) H/O foot surgery ?Z98.890 - Other specified postprocedural states (ICD-10) Hx of tonsillectomy ?Z90.89 - Acquired absence of other organs (ICD-10) Gastric bypass status for obesity ?Z98.84 - Bariatric surgery status (ICD-10) History of cholecystectomy ?Z90.49 - Acquired absence of other specified parts of digestive tract (ICD-10) Family History (Updated 05/30/25 @ 09:10 by Marquita Shell) Mother Stroke Sister Thyroid cancer, medullary carcinoma Father Myocardial infarction Social History (Updated 05/31/25 @ 13:38 by Holly Emerson ~ CTA) What is your current living situation?: I presently have a place to live Problems where you live: no known problems In the past 12 months, utilities in danger of being shut off: no In past 12 months, lack of transportation kept you from medical appts, meetings, work, or getting things needed for daily living: no In the past 12 mos, have been you worried that your food would run out before you had money to buy more?: never true In the past 12 mos, the food you bought just didn't last and you didn't have money to buy more?: never true Smoking Status: Never smoker How often does anyone, including family, friends and others, physically hurt you: never How often does anyone, including family, friends and others, insult or talk down to you: never How often does anyone, including family, friends and others, threaten you with harm: never How often does anyone, including family, friends and others, scream or curse at you: never Exam Const: Vital Signs, click to edit/add: Vital Signs - 24 hr 07/03/25 18:30 Temperature 96.9 F L Pulse Rate [Pulse Oximeter] 75 Respiratory Rate 20 Blood Pressure [Ri ght Upper Arm] 119/84 Pulse Oximetry 100 Oxygen Delivery Me thod Room Air Course Vital Signs Vital signs: Initial Vital Signs Temperature 96.9 F L 07/03/25 18:30 Temperature Source Temporal Artery Scan 07/03/25 18:30 Pulse Rate 75 07/03/25 18:30 Respiratory Rate 20 07/03/25 18:30 Blood Pressure 119/84 07/03/25 18:30 Blood Pressure Mean 95 07/03/25 18:30 Blood Pressure Position Sitting 07/03/25 18:30 Pulse Oximetry 100 07/03/25 18:30 Oxygen Delivery Method Room Air 07/03/25 18:30 Vital Signs Temperature 96.9 F L 07/03/25 18:30 Pulse Rate 75 07/03/25 18:30 Respiratory Rate 20 07/03/25 18:30 Blood Pressure 119/84 07/03/25 18:30 Pulse Oximetry 100 07/03/25 18:30 Oxygen Delivery Method Room Air 07/03/25 18:30 Temperature 96.9 F L 07/03/25 18:30 Pulse Rate 75 07/03/25 18:30 Respiratory Rate 20 07/03/25 18:30 Blood Pressure 119/84 07/03/25 18:30 Pulse Oximetry 100 07/03/25 18:30 Oxygen Delivery Method Room Air 07/03/25 18:30 Discharge Plan Discharge Prescriptions: No Action cetirizine 10 mg tablet 10 mg PO QDAY PRN ferrous gluconate 240 mg (27 mg iron) tablet 240 mg PO QDAY lorazepam [Ativan] 0.5 mg tablet 0.5 mg PO BID PRN (Reason: agitation) Qty: 20 0RF Multiple Vitamin-Minerals Tablet 1 tab PO ONCE albuterol sulfate 90 mcg/actuation HFA aerosol inhaler 2 puff inhalation Q4-6H PRN (Reason: shortness of breath or wheezing) 90 Days Qty: 8.5 3RF Advair HFA 115-21 mcg/actuation HFA aerosol inhaler 2 puff inhalation BID 90 Days Qty: 12 6RF sumatriptan succinate 100 mg tablet 100 mg PO ONCE Qty: 14 3RF Mirena 21 mcg/24hr (up to 8 yrs) 52 mg intrauterine device 1 device intrauterine ONCE Rx Instructions: as a single dose fluticasone propion-salmeterol 250-50 mcg/dose blister with device 1 ea inhalation BID triamcinolone acetonide 0.1 % cream topical BID fluticasone propionate 50 mcg/actuation spray,suspension 1 - 2 spray intranasal DAILY warfarin 5 mg tablet 5 mg PO DAILY norethindrone acetate 5 mg tablet 5 mg PO DAILY trazodone 50 mg tablet 100 mg PO QHS 90 Days Qty: 180 3RF ondansetron 4 mg tablet,disintegrating 4 mg PO Q8H PRN (Reason: nausea and vomiting) 30 Days Qty: 30 3RF fluoxetine 20 mg capsule 40 mg PO QDAY Qty: 90 3RF Eliquis 5 mg tablet 5 mg PO BID Qty: 60 2RF Follow Up/Referrals: Prieto Hyman MD [Primary Care Provider, Internal Medicine]
[2025-07-03 19:27] LABS: PCR FLU A Negative PCR FLU A (Negative); PCR FLU B Negative PCR FLU B (Negative); PCR RSV Negative PCR RSV (Negative); SARS PCR* POSITIVE SARS-CoV-2 (Negative)
--- NOTE | 2025-07-03 20:33 | ED_ITS ---
HPI - General Adult General Chief complaint: Shortness of Breath/Dyspnea Stated complaint: tightness in chest/shortness of breath Time Seen by Provider: 07/03/25 18:38 History of Present Illness HPI narrative: Pt reports her kids and significant other are sick with some illness. Pt symptom s started Thursday night. Pt is also sick, feels tightness in chest, head pressure, nasal drainage. Body aches. Concerned about being sick because 1 month ago was airlifted from [facility] and on ECMO related to bilateral PEs and DVTs. Was intubated during that time. On eliquis and warfarin. 39-year-old woman presenting to the emergency with concern of chest tightness. Particularly worried because approximate 1 month ago was diagnosed with bilateral pulmonary emboli and DVT. Ultimately required ECMO. Is currently being transitioned to Coumadin while taking Eliquis. Significant other who accompanies her here today is sick and kids are sick. She has not had a fever. No abdominal pain. No diarrhea. Has been experiencing some body aches. Rhinorrhea. No significant cough. Does struggle with anxiety which has been amplified since this medical experience she had. Has taken Ativan today. Does apparently have a diagnosis of asthma. She has tried her nebulizers and inh martín without much relief. Symptoms now on day 3. Related Data Home Medications ?Medication ?Instructions ?Recorded ?Confirmed multivitamin with minerals 1 tab PO ONCE 01/28/2305/23 (Multiple Vitamin-Minerals tablet) levonorgestrel (Mirena) 1 device intrauterine ONCE 1 11/26/23 06/02/25 fluticasone 250 mcg-salmeterol 50 1 ea inhalation BID 05/18/25 06/02/25 mcg/dose blistr powdr for inhalation fluticasone propionate 50 1 - 2 spray intranasal DAILY 05/18/25 06/02/25 mcg/actuation nasal spray,suspension triamcinolone acetonide 0.1 % applic topical BID 05/1806/02/25 topical cream cetirizine 10 mg tablet 10 mg PO QDAY PRN 05/31/25 0 06/02/25 ferrous gluconate 240 mg (27 mg 240 mg PO QDAY 5 07/03/25 iron) tablet warfarin 5 mg tablet 5 mg PO DAILY 07/03/2507/03 Previous Rx's ?Medication ?Instructions ?Recorded albuterol sulfate 90 mcg/actuation 2 puff inhalation Q 4-6H PRN 09/26/24 aerosol inhaler shortness of breath or wheez ing 90 days #8.5 grams fluticasone propionate 115 2 puff inhalation BID 90 da ys #12 09/26/24 mcg-salmeterol 21 mcg/actuation grams HFA inhaler (Advair HFA) sumatriptan succinate 100 mg tablet 100 mg PO ONCE #14 tabs 09/26/24 trazodone 50 mg tablet 100 mg (2 x 50 mg) PO QHS 90 days 12/08/24 #180 tabs ondansetron 4 mg disintegrating 4 mg PO Q8H PRN nausea and 04/24/25 tablet vomiting 30 days #30 tabs lorazepam 0.5 mg tablet (Ativan) 0.5 mg PO BID PRN loraine tation #20 05/31/25 tabs fluoxetine 20 mg capsule 40 mg (2 x 20 mg) PO QDAY #9 0 caps 06/05/25 apixaban 5 mg tablet (Eliquis) 5 mg PO BID #60 tabs nirmatrelvir 300 mg (150 mg See Rx Instructions PO .CO MPLEX #6 07/03/25 x2)-ritonavir 100 mg tablet,dose tabs pack (Paxlovid) Allergies Allergy/AdvReac Type Severity Reaction Status Date / Time No Known Drug Allergies Allergy Verified 06/02/25 13:34 Review of Systems Status of ROS: Reports: 6 or more systems reviewed and unremarkable except as noted in History and below [facility] Medical History History of DVT (deep vein thrombosis) ?Z86.718 - Personal history of other venous thrombosis and embolism (ICD-10) History of pulmonary embolus (PE) ?Z86.711 - Personal history of pulmonary embolism (ICD-10) Endometriosis ?N80.9 - Endometriosis, unspecified (ICD-10) Heavy menstrual bleeding ?N92.0 - Excessive and frequent menstruation with regular cycle (ICD-10) Abnormal Papanicolaou smear of cervix with positive human papilloma virus (HPV) test ?R87.618 - Other abnormal cytological findings on specimens from cervix uteri (ICD-10) Insomnia ?G47.00 - Insomnia, unspecified (ICD-10) Migraine ?G43.909 - Migraine, unspecified, not intractable, without status migrainosus (ICD-10) Iron deficiency anemia ?D50.9 - Iron deficiency anemia, unspecified (ICD-10) Anxiety ?F41.9 - Anxiety disorder, unspecified (ICD-10) Asthma ?J45.909 - Unspecified asthma, uncomplicated (ICD-10) Surgical History History of colposcopy with cervical biopsy (2022) ?Z98.890 - Other specified postprocedural states (ICD-10) History of loop electrical excision procedure (LEEP) ?Z98.890 - Other specified postprocedural states (ICD-10) H/O wisdom tooth extraction ?K08.409 - Partial loss of teeth, unspecified cause, unspecified class (ICD- 10) H/O foot surgery ?Z98.890 - Other specified postprocedural states (ICD-10) Hx of tonsillectomy ?Z90.89 - Acquired absence of other organs (ICD-10) Gastric bypass status for obesity ?Z98.84 - Bariatric surgery status (ICD-10) History of cholecystectomy ?Z90.49 - Acquired absence of other specified parts of digestive tract (ICD- 10) Family History Mother Stroke Sister Thyroid cancer, medullary carcinoma Father Myocardial infarction Social History What is your current living situation?: I presently have a place to live Problems where you live: no known problems In the past 12 months, utilities in danger of being shut off: no In past 12 months, lack of transportation kept you from medical appts, meetings, work, or getting things needed for daily living: no In the past 12 mos, have been you worried that your food would run out before you had money to buy more?: never true In the past 12 mos, the food you bought just didn't last and you didn't have money to buy more?: never true Smoking Status: Never smoker Do you use any of these nicotine containing products: None How often do you have a drink containing alcohol: monthly or less How many standard drinks containing alcohol do you have on a typical day: 1 or 2 How often do you have six or more drinks on one occasion: Never AUDIT-C Alcohol total score: 1 Non-prescribed substance use: denies use How often does anyone, including family, friends and others, physically hurt you : never How often does anyone, including family, friends and others, insult or talk down to you: never How often does anyone, including family, friends and others, threaten you with harm: never How often does anyone, including family, friends and others, scream or curse at you: never service: No Exam Narrative: Exam Narrative: Really concerned. Mildly labored in breathing but not really tachypneic. Vitals look good. Tearful as we continued to talk. Lungs sound clear. Heart in regular rate and rhythm. Little sore to palpation across the anterior chest. No JVD apparent. Extremities are well perfused and are extremities are without edema. Oropharynx is moist. WNL. Neck is supple without lymphadenopathy. Const: Vital Signs, click to edit/add: Vital Signs - 24 hr 07/03/25 18:30 07/03/25 20:51 Temperature 96.9 F L 97.6 F Pulse Rate [Pulse Oximeter] 75 62 Respiratory Rate 20 20 Blood Pressure [Ri ght Upper Arm] 119/84 114/83 Pulse Oximetry 100 100 Oxygen Delivery Me thod Room Air Room Air Documenting provider has reviewed patient's vital signs: yes Course Vital Signs Vital signs: Initial Vital Signs Temperature 96.9 F L 07/03/25 18:30 Temperature Source Temporal Artery Scan 07/03/25 18:30 Pulse Rate 75 07/03/25 18:30 Respiratory Rate 20 07/03/25 18:30 Blood Pressure 119/84 07/03/25 18:30 Blood Pressure Mean 95 07/03/25 18:30 Blood Pressure Position Sitting 07/03/25 18:30 Pulse Oximetry 100 07/03/25 18:30 Oxygen Delivery Method Room Air 07/03/25 18:30 Vital Signs Temperature 96.9 F L 07/03/25 18:30 Pulse Rate 75 07/03/25 18:30 Respiratory Rate 20 07/03/25 18:30 Blood Pressure 119/84 07/03/25 18:30 Pulse Oximetry 100 07/03/25 18:30 Oxygen Delivery Method Room Air 07/03/25 18:30 Temperature 97.6 F 07/03/25 20:51 Pulse Rate 62 07/03/25 20:51 Respiratory Rate 20 07/03/25 20:51 Blood Pressure 114/83 07/03/25 20:51 Pulse Oximetry 100 07/03/25 20:51 Oxygen Delivery Method Room Air 07/03/25 20:51 Medical Decision Making MDM Narrative Medical decision making narrative: With regard to expanding pulmonary embolus, I am reassured by vitals. Furthermore is already anticoagulated. She is due for INR check in 3 days time. Was not yet therapeutic when checked last week. Does sound as though symptoms are more likely an infectious illness. Has been checked for COVID. Differential otherwise I suppose could include pneumonia. Certainly exacerb ation of understandable anxiety. Did request two-view chest by my independent review looks WNL. Will check labs also for trending INR and hopefully for reassuring white count. Monitor on oximetry. EKG independently reviewed by me shows normal sinus rhythm at 78. Labs are reassuring although INR is still subtherapeutic at 0.96 and is COVID positive I think COVID is likely reason for chest pressure along with anxiety. Recent pulmonary emboli and COVID. Technique: Two views of the chest. Comparison: Chest x-ray 05/31/2025. Findings/Impression: The heart is not abnormally enlarged. Mediastinal contours are grossly within normal limits. Minimal patchy retrocardiac opacification may reflect atelectasis, however developing infectious process is not excluded in the appropriate clinical context. No pleural effusion or pneumothorax. No acute osseous abnormality. Dictated by Meño Michele MD @ 07/03/2025 9:29:48 PM Challenge a here might be to treat with Paxlovid. I think would be candidate and might still benefit but after reviewing [place] interaction database, there are week potential interactions particularly related to Eliquis, fluoxetine and trazodone. I am disinclined to have her limit her Eliquis at this time. Not able to provide with Paxlovid tonight anyway and I think best to discuss with hematology. Vitals have continued to be reassuring. See patient discharge plan for further discussion I am reassured by your vitals and generally your symptoms as they can be explained by COVID. I am sending in a course of Paxlovid as it might still be beneficial. Your case is a little complicated. I actually would message Hematology as to what they might like you to do in this case with regard to Paxlovid dosing and how you might need to change other medication. You are still subtherapeutic with your Coumadin (see printout of your labs today) If you choose to start this Paxlovid, my inclination is to recommend regular dosing of your other medications as well. But please run this by Hematology. Return for persistent and increasing shortness of breath, marked increase in chest pain. Do stay well-hydrated. I would recommend still quarantining as best you can for 10 days from 1st day of illness. Consider also clearing yourself with home antigen testing at that point. Medical Records Medical records reviewed: Yes I reviewed the patient's medical records Lab Data Lab results reviewed: Yes I reviewed the patient's lab results Labs: Lab Results 07/03/25 07/03/25 Range/Units 18:36 20:57 WBC 6.02 (4.50-11.00) K/uL RBC 4.49 (4.00-5.20) m/uL Hgb 12.4 (12.0-16.0) gm/dL Hct 39.0 (33.0-51.0) % MCV 87 (80-100) fL MCH 28 (26-34) pg MCHC 32 (32-36) gm/dL RDW Coeff of Jeremy 13.0 (11.5-15.5) % Plt Count 496 H (140-440) K/uL Neut % (Auto) 37.9 L (42.0-72.0) % Lymph % (Auto) 51.5 H (20-44) % Thurston % (Auto) 8.8 (0.0-11.0) % Eos % (Auto) 1.3 (0.0-7.0) % Baso % (Auto) 0.3 (0.0-3.0) % Neut # (Auto) 2.30 (1.7-7.0) K/uL Lymph # (Auto) 3.10 H (0.90-2.90) K/uL Thurston # (Auto) 0.50 (0.00-0.90) K/UL Eos # (Auto) 0.08 (0.00-0.50) K/uL Baso # (Auto) 0.02 (0.00-0.30) K/uL Abs Immat Gran (auto) 0.01 (0.00-0.30) K/uL Imm/Tot Granulo (auto) 0.2 % INR 0.96 (0.91-1.10) Sodium 135 (135-149) mmol/L Potassium 4.4 (3.6-5.1) mmol/L Chloride 104 (96-114) mmol/L Carbon Dioxide 27 (20-32) mmol/L Anion Gap 4 L (7-15) mEq/L BUN 10 (5-24) mg/dL Creatinine 0.8 (0.5-1.5) mg/dL Estimated Creat Clear 93.35 Estimated GFR 95 ml/min Glucose 86 (60-115) mg/dL Calcium 9.4 (8.4-10.6) mg/dL SARS-CoV-2 (PCR) POSITIVE SARS-CoV-2 A (Negative) Influenza Type A (PCR) Negative PCR FLU A (Negative) Influenza Type B (PCR) Negative PCR FLU B (Negative) RSV (PCR) Negative PCR RSV (Negative) Discharge Plan Discharge Clinical Impression: COVID, Chest pressure Patient Disposition: Home w/ Parent or Adult Condition: Stable Additional Instructions: I am reassured by your vitals and generally your symptoms as they can be explained by COVID. I am sending in a course of Paxlovid as it might still be beneficial. Your case is a little complicated. I actually would message Hematology as to what they might like you to do in this case with regard to Paxlovid dosing and how you might need to change other medication. You are still subtherapeutic with your Coumadin (see printout of your labs today) If you choose to start this Paxlovid, my inclination is to recommend regular dosing of your other medications as well. But please run this by Hematology. Return for persistent and increasing shortness of breath, marked increase in chest pain. Do stay well-hydrated. I would recommend still quarantining as best you can for 10 days from 1st day of illness. Consider also clearing yourself with home antigen testing at that point. Prescriptions: New Paxlovid 300 mg (150 mg x 2)-100 mg tablets,dose pack See Rx Instructions PO .COMPLEX Qty: 6 0RF Rx Instructions: take TWO 150 mg tablets of nirmatrelvir with ONE 100 mg tablet of ritonavir twice daily for 5 days No Action cetirizine 10 mg tablet 10 mg PO QDAY PRN ferrous gluconate 240 mg (27 mg iron) tablet 240 mg PO QDAY lorazepam [Ativan] 0.5 mg tablet 0.5 mg PO BID PRN (Reason: agitation) Qty: 20 0RF Multiple Vitamin-Minerals Tablet 1 tab PO ONCE albuterol sulfate 90 mcg/actuation HFA aerosol inhaler 2 puff inhalation Q4-6H PRN (Reason: shortness of breath or wheezing) 90 Days Qty: 8.5 3RF Advair HFA 115-21 mcg/actuation HFA aerosol inhaler 2 puff inhalation BID 90 Days Qty: 12 6RF sumatriptan succinate 100 mg tablet 100 mg PO ONCE Qty: 14 3RF Mirena 21 mcg/24hr (up to 8 yrs) 52 mg intrauterine device 1 device intrauterine ONCE Rx Instructions: as a single dose fluticasone propion-salmeterol 250-50 mcg/dose blister with device 1 ea inhalation BID triamcinolone acetonide 0.1 % cream topical BID fluticasone propionate 50 mcg/actuation spray,suspension 1 - 2 spray intranasal DAILY warfarin 5 mg tablet 5 mg PO DAILY trazodone 50 mg tablet 100 mg PO QHS 90 Days Qty: 180 3RF ondansetron 4 mg tablet,disintegrating 4 mg PO Q8H PRN (Reason: nausea and vomiting) 30 Days Qty: 30 3RF fluoxetine 20 mg capsule 40 mg PO QDAY Qty: 90 3RF Eliquis 5 mg tablet 5 mg PO BID Qty: 60 2RF Follow Up/Referrals: Prieto Hyman MD [Primary Care Provider, Internal Medicine] Stand Alone Forms: [facility] Info Instructions
--- NOTE | 2025-07-03 20:35 | CRLHL7_ITS ---
For Patients: As a result of the Cures Act, medical imaging exams and procedure reports are released immediately into your electronic medical record. You may view this report before your referring provider. If you have questions, please contact your health care provider. Indication: Recent pulmonary emboli and COVID. Technique: Two views of the chest. Comparison: Chest x-ray 05/31/2025. Findings/Impression: The heart is not abnormally enlarged. Mediastinal contours are grossly within normal limits. Minimal patchy retrocardiac opacification may reflect atelectasis, however developing infectious process is not excluded in the appropriate clinical context. No pleural effusion or pneumothorax. No acute osseous abnormality. Dictated by Meño Michele MD @ 07/03/2025 9:29:48 PM (Electronically Signed)
--- OUTSIDE RECORDS SUMMARY | 2025-07-03 20:41 | XMS_ITS | CCD ---
Author Name Interface, [id number] lity Address [address] [place] [address] [facility] Address [address] [place] [address] Care Team Providers Care Front End Specialist Name Role Phone Torsten Morfin Unavailable Unavailable Allergies and Adverse Reactions Care Plan Reason for Visit Encounters Immunizations Diagnostic Results Medications Problems Procedures Social History Visits Vital Signs Notes Section
--- OUTSIDE RECORDS SUMMARY | 2025-07-03 20:41 | XMS_ITS ---
Author Name Interface, [id number] lity Address [address] [place], [place] [address] [id number] [facility] Address [address] [place], [place] [address] [place] [address] Allergies and Adverse Reactions Plan Reason for Visit Encounters Immunizations Diagnostic Results Medications Problems Vital Signs Notes Section
--- OUTSIDE RECORDS SUMMARY | 2025-07-03 20:42 | XMS_ITS ---
Author Name Interface, [id number] lity Address [address] [place], [place] [address] [place] [id number] [facility] Address [address] [place], [place] [address] [place] [address] Allergies and Adverse Reactions Plan Reason for Visit Encounters Immunizations Diagnostic Results Medications Problems Vital Signs Notes Section
--- OUTSIDE RECORDS SUMMARY | 2025-07-03 20:42 | XMS_ITS | CCD ---
Author Name Interface, [id number] lity Address [address] [facility] [address] [place] [address] [facility] Address [address] [facility] [address] [place] [address] Care Team Providers Care Ground Crewman Name Role Phone Torsten Morfin Unavailable Unavailable Allergies and Adverse Reactions Care Plan Reason for Visit Encounters Immunizations Diagnostic Results Medications Problems Procedures Social History Visits Vital Signs Notes Section
[2025-07-03 20:51] VITALS: BP 114/83; PULSE 62; RESP 20; TEMP 36.4; O2SAT 100
[2025-07-03 21:04] LABS: Hematocrit 39.0 % (33.0-51.0); Hemoglobin* 12.4 gm/dL (12.0-16.0); Immature Granulocytes Abs Auto 0.01 K/uL (0.00-0.30); Immature Granulocytes Pct Auto 0.2 %; Lymphocytes Absolute Auto 3.10 K/uL (0.90-2.90); Mean Corpuscular HGB Conc 32 gm/dL (32-36); Mean Corpuscular Hemoglobin 28 pg (26-34); Mean Corpuscular Volume 87 fL (80-100); RDW Coefficient of Variation % 13.0 % (11.5-15.5); Red Blood Count 4.49 m/uL (4.00-5.20); White Blood Count* 6.02 K/uL (4.50-11.00)
[2025-07-03 21:05] LABS: Slide Review Reflex No
[2025-07-03 21:17] LABS: Chloride* 104 mmol/L (96-114); Potassium* 4.4 mmol/L (3.6-5.1); Sodium* 135 mmol/L (135-149)
[2025-07-03 21:20] LABS: Blood Urea Nitrogen* 10 mg/dL (5-24); Creatinine* 0.8 mg/dL (0.5-1.5); Est. Creatinine Clearance* 93.35; Estimated Glomerular Filt Rate 95 ml/min
[2025-07-03 21:21] LABS: Anion Gap 4 mEq/L (7-15); Calcium* 9.4 mg/dL (8.4-10.6); Carbon Dioxide* 27 mmol/L (20-32); Glucose* 86 mg/dL (60-115)
[2025-07-03 21:22] LABS: INR 0.96 (0.91-1.10); Prothrombin Time 13.6 Seconds
== END 2025-07-03 22:54 | disposition home or self-care (01) ==
PROVIDERS: Emergency Provider Family Medicine; PCP Internal Medicine
DX: U07.1 COVID-19 (principal); R07.89 Other chest pain
CPT/HCPCS: 36415; 71046; 80048; 85025; 85610; 87631; 93005; 99284

== ENCOUNTER 2025-07-17 07:46 | Outpatient (CLI) | payer OTHER, SELFPAY ==
[2025-07-17 08:30] LABS: INR 1.47 (0.91-1.10); Prothrombin Time 18.8 Seconds
== END 2025-07-17 07:47 | disposition home or self-care (01) ==
PROVIDERS: PCP Internal Medicine; Visit Provider Internal Medicine
DX: D68.61 Antiphospholipid syndrome (principal); I82.412 Acute embolism and thrombosis of left femoral vein
CPT/HCPCS: 36415; 85260; 85610

== ENCOUNTER 2025-07-31 10:28 | Outpatient (CLI) | payer OTHER, SELFPAY ==
[2025-07-31 11:01] LABS: INR 1.30 (0.91-1.10); Prothrombin Time 17.1 Seconds
== END 2025-07-31 10:29 | disposition home or self-care (01) ==
PROVIDERS: PCP Internal Medicine; Visit Provider Internal Medicine
DX: D68.61 Antiphospholipid syndrome (principal); I82.412 Acute embolism and thrombosis of left femoral vein
CPT/HCPCS: 36415; 85260; 85610

== ENCOUNTER 2025-08-20 21:13 | Emergency (ER) | payer OTHER, SELFPAY ==
--- OUTSIDE RECORDS SUMMARY | 2025-08-20 21:15 | XMS_ITS ---
Author Name Interface, [id number] lity Address [address] [place], [place] [address] [id number] [facility] Address [address] [place], [place] [address] [address] Allergies and Adverse Reactions Plan Reason for Visit Encounters Immunizations Diagnostic Results Medications Problems Vital Signs Notes Section
--- OUTSIDE RECORDS SUMMARY | 2025-08-20 21:15 | XMS_ITS | Clinical Summary ---
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 04/29/20 23 Active traZODone (DESYREL) 50 mg tablet Take 100 mg by mouth at bedtime. 04/01/20 23 Active ferrous gluconate (27 mg elemental) 240 mg (27 mg iron) tablet Take 240 mg by mouth once daily. 12/30/19 24 Active Ventolin HFA 90 mcg/actuation inhaler Inhale 2 Puffs by mouth every 4 hours if needed for Shortness Of Breath or Wheezing. 09/26/20 24 Active ondansetron [address] 4 mg on the tongue every 8 hours if needed. 04/24/20 25 Active SUMAtriptan 100 mg tablet Take 100 mg by mouth 2 times daily if needed. 09/27/20 24 Active FLUoxetine 20 mg capsuleIndications: Anxiety Take 2 Capsules (40 mg) by mouth once daily in the morning. 30 Capsule 05/29/20 25 Active apixaban (Eliquis) 5 mg tabletIndications:p ulmonary thromboembolism Take 2 tablets (10 mg) by mouth twice daily for 11 DOSES. Starting on 06/03, take 1 tablet by mouth twice daily thereafter. 74 Tablet 10:18 AM CDT 05/28/20 Active Additional Information Patient taking differently: 5 mg BID, Take 2 tablets (10 mg) by mouth twice daily for 11 DOSES. Starting on 06/03, take 1 tablet by mouth twice daily thereafter., Indications: pulmonary thromboembolism, Reported on 07/18/2025 cetirizine 10 mg tabletIndications:A llergic rhinitis due to pollen, unspecified seasonality Take 1 Tablet (10 mg) by mouth once daily if needed for Allergy Symptoms or Rhinitis. 05/28/20 Active warfarin (COUMADIN) 5 mg tablet Take 10 mg by mouth once daily. 06/23/20 Active Active Problems Problem Noted Date Diagnosed [...] Encounters Date Type Department Care Team Description 08/08/2025 Telephone [facility] [address] [facility] [address] [place] [address] Vipul Rivers MD Questions 07/20/2025 Telephone [facility] [address] [place] [address] Vipul Rivers MD Appointment 07/18/2025 11:00 AM CDT Office Visit [facility] [address] [facility] [address] [place] [address] Vipul Rivers MD Follow Up (/POST HOSPITAL /ECHO & LABS PRIOR/DX: Cardiogenic shock (HC) [R57.0] /PT states feeling ok, she has same chest tightness and leg edema. She is extremely hot at night sweating. ) 07/18/2025 9:00 AM CDT Ancillary Procedure [facility] [address] [place] [address] 07/18/2025 8:40 AM CDT Orders Only [facility] [address] [place] [address] Lab 07/18/2025 Travel 07/13/2025 Travel 05/30/2025 Orders Only [facility] [address] [facility] [address] [place] [address] Haresh Lobo MD <No scans attached> 05/24/2025 12:44 PM CDT Anesthesia Event [facility] [address] [place] [address] Jv Zhu, DO Mendez, Re Marsh, PIECE GOODS CLERK 05/24/2025 12:15 PM CDT - 05/24/2025 2:57 PM CDT Surgery [facility] [address] [place] [address] Rachid Lima MD REMOVE ECMO CANNULA, LEFT FEMORAL ARTERY CUTDOWN 05/24/2025 Travel 05/23/2025 10:35 AM CDT - 05/28/2025 12:42 PM CDT Hospital Encounter [facility] [address] [place] [address] Hilario Brown MBBS Mayeux, MD Nic Duenas, MD Emely Castelan Michael Albert, MD Huelster, Jv Hidalgo MD [facility] Of Pulmonary embolism, unspecified chronicity, unspecified pulmonary embolism type, unspecified whether acute cor pulmonale present (HC) (Primary Dx); Anxiety; Allergic rhinitis due to pollen, unspecified seasonality; Cardiogenic shock (HC) Discharge Disposition: Home Self Care 05/23/2025 9:01 AM CDT - 05/23/2025 10:00 AM CDT Emergency [facility] [address] [place] [address] Nate Meneses MD Pulmonary embolism, unspecified chronicity, [...] Not Answered Alcohol Use Standard Drinks/Week Comments Not Currently 7 (1 standard drink = 0.6 oz pur [...] heat, electricity, water, phone)? 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 Gender Identity Female 04/30/2023 4:12 PM CDT Sexual Orientation Straight 04/30/2023 4: 12 PM CDT Obstetrics History Last Filed Vital Signs Vital Sign Reading Time Taken Comments Blood Pressure 120/72 07/18/2025 10:58 AM CDT Pulse 87 07/18/2025 10:58 AM CDT Temperature 37.2 C (98.9 F) 05/28/2025 12:07 AM CDT Respiratory Rate 18 05/28/2025 11:00 AM CDT Oxygen Saturation 98% 07/18/2025 10:58 AM CDT Inhaled Oxygen Concentration - - Weight 102.3 kg (225 lb 8 oz) 07/18/2025 10:58 A M CDT Height 172.7 cm (5' 8) 07/18/2025 10:58 AM CDT Body Mass Index 34.29 07/18/2025 10:58 AM CDT Plan of Treatment Upcoming Encounters Date Type Department Care Team (Late st Contact Info) Description 09/20/2025 10:45 AM CDT Appointment [facility] [address] [place] [address] 09/20/2025 11:00 AM CDT Appointment [facility] [address] [place] [address] 09/20/2025 1:50 PM CDT Orders Only [facility] [address] [place] [phone] 09/20/2025 2:45 PM CDT Appointment [facility] [address] [place] [address] 09/20/2025 4:30 PM CDT Office Visit [facility] [address] [facility] [address] [place] [phone] Vipul Rivers MD [address] [place] [address] Health Maintenance Due Date Last Done Comments Depression screening for age 12+ 1995 HIV for age 15-65 1998 Hepatitis C screening for age 18-79 2001 Hepatitis B series for 19+ ( 1 of 3 - 19+ 3-dose series) 2002 Pneumococcal series for age 6-49 (1 of 2 - PCV) 2001 Pap test for age 21-65 2004 HPV series for age 9-45 (1 - 3-dose SCDM series) 07/25 COVID-19 vaccine series ( season) 2022 Influenza Vaccine (#1) 2025 BMI (ht and wt on same day) for age 18+ 07/18/2026 0 07/18/2025 Tetanus booster 04/30/2033 04/30/2023 RSV vaccine for adults or pr egnancy (1 - 1-dose 75+ series) 2058 Procedures Procedure Name Priority Date/Time Associated Diagnosis Comments ECHO TTE LIMITED WO CONTRAST Routine 07/18/2025 9:31 AM CDT Cardiogenic shock (HC) Acute massive pulmonary embolism (HC) PRO-BNP Routine 07/18/2025 8:36 AM CDT Cardiogenic shock (HC) Acute massive pulmonary embolism (HC) BASIC METABOLIC PANEL Routine 07/18/2025 8:36 AM CDT Cardiogenic shock (HC) Acute massive pulmonary embolism (HC) SCAN-CARDIAC STRIP 05/28/2025 7: 21 AM CDT [...] TOTAL STAT 05/24/2025 12:00 PM CDT HEMOGLOBIN HAWA 05/24/2025 10:42 AM CDT PROTIME-INR HAWA 05/24/2025 [...] CDT from Last 3 Months Results * ECHO TTE LIMITED WO CONTRAST (07/18/2025 9:31 AM CDT) EJECTION FRACTION 61 % LVEDD 5.2 cm EJECTION FRACTION 55 - 60% Anatomical Region Laterality Modality Ultrasound 07/18/2025 9:02 AM CDT Narrative 07/18/2025 1:16 PM CDT ECHOCARDIOGRAM SHANELL MENDEZ : 1985 39 years Study Date: 07/18/2025 9:02:58 AM Gender: F BP: 115/76 mmHg Height: 170.18 cm BSA: 2.07 m Weight: 96.16 kg Tech: MSR Referring MD: HARESH LOBO Site: [facility] Reading Location: MOBILE - OP Patient Location: Outpatient. Procedure: Limited 2D , Limited Spectral Doppler and Color Doppler. Indication for study: Cardiogenic shock (HC); Acute massive pulmonary embolism Cardiac Rhythm: Normal sinus.Study quality: Fair. Final Impressions: Limited Echocardiogram performed 1. Normal LV size, normal global systolic function with an estimated EF of 55 - 60%. 2. Right ventricular cavity size is normal, global systolic RV function is normal. 3. No significant valve disease detected. Comparison Compared to prior exam of 05/26/25: RV appears less dilated with normal function. Chamber Sizes and Function Normal left ventricular size, normal global systolic function with an estimated EF of 55 - 60%. Right ventricular cavity size is normal, global systolic RV function is normal. Valves, RV Pressures and Diastolic Function The aortic valve is trileaflet. The mitral valve is normal in structure, trace mitral regurgitation. The tricuspid valve is normal in structure, trace tricuspid regurgitation. Masses, Effusion, Shunts The inferior vena cava is normal sized, respiratory size variation greater than 50%. MEASUREMENTS AND CALCULATIONS 2-D Measurements and LV Function: LVID (d) 5.2 cm LV FS% (2D) 33 % LVID (s) 3.5 cm LVOT diameter 2.1 cm IVS (d) 0.8 cm HR 68 bpm LVPW (d) 1.0 cm Ao Sinus ULN 3.6 cm * Asc Ao ULN 3.6 cm * * Input BSA outside of range, reported values correspond to BSA = 1.9 Tricuspid Valve and estimated PA pressures: TAPSE 3.1 cm . This study was interpreted by an [facility] accredited facility. Final Procedure Note Bill Cheatham MD - 07/18/2025 ECHOCARDIOGRAM SHANELL MENDEZ : 1985 39 years Study Date: 07/18/2025 9:02:58 AM Gender: F BP: 115/76 mmHg Height: 170.18 cm BSA: 2.07 m Weight: 96.16 kg Tech: MSR Referring MD: HARESH LOBO Site: [facility] Reading Location: MOBILE - OP Patient Location: Outpatient. Procedure: Limited 2D , Limited Spectral Doppler and Color Doppler. Indication for study: Cardiogenic shock (HC); Acute massive pulmonaryembolism Cardiac Rhythm: Normal sinus.Study quality: Fair. Final Impressions: Limited Echocardiogram performed 1. Normal LV size, normal global systolic function with an estimated EFof 55 - 60%. 2. Right ventricular cavity size is normal, global systolic RV functionis normal. 3. No significant valve disease detected. Comparison Compared to prior exam of 05/26/25: RV appears less dilated with normalfunction. Chamber Sizes and Function Normal left ventricular size, normal global systolic function with anestimated EF of 55 - 60%. Right ventricular cavity size is normal, globalsystolic RV function is normal. Valves, RV Pressures and Diastolic Function The aortic valve is trileaflet. The mitral valve is normal in structure,trace mitral regurgitation. The tricuspid valve is normal in structure,trace tricuspid regurgitation. Masses, Effusion, Shunts The inferior vena cava is normal sized, respiratory size variation greaterthan 50%. MEASUREMENTS AND CALCULATIONS 2-D Measurements and LV Function: LVID (d) 5.2 cm LV FS% (2D)33 % LVID (s) 3.5 cm LVOT diameter2.1 cm IVS (d) 0.8 cm HR68 bpm LVPW (d) 1.0 cm Ao Sinus ULN 3.6 cm * Asc Ao ULN 3.6 cm * * Input BSA outside of range, reported values correspond to BSA = 1.9 Tricuspid Valve and estimated PA pressures: TAPSE 3.1 cm . This study was interpreted by an [facility] accredited facility. Final Haresh Lobo MD ECHO ORD Final R esult * PRO-BNP (07/18/2025 8:36 AM CDT) Only the most recent of2 resultswithin the time period is included. Pathologist [facility] NT PROBNP 72 <125 pg/mL 07/19/2025 1:37 PM CDT [facility] Blood BLOOD SPECIMEN / Unknown [facility] / Unknown 07/18/2025 8:36 AM CDT 07/18/2025 8:37 AM CDT Haresh Lobo MD SEND OUTS Final R esult [facility] [employer] [place] [address] [address], * BASIC METABOLIC PANEL (07/18/2025 8:36 AM CDT) Only the most recent of7 resultswithin the time period is included. SODIUM 139 135 - 146 mmol/L 07/19/2025 3:25 AM CDT [facility] POTASSIUM 4.3 3.5 - 5.3 mmol/L 07/19/2025 3:25 AM CDT [facility] CARBON DIOXIDE 27 20 - 32 mmol/L 07/19/2025 3:25 AM CDT [facility] GLUCOSE 77 65 - 99 mg/dL 07/19/2025 3:25 AM CDT [facility] Comment: Fasting reference interval CALCIUM 9.2 8.6 - 10.2 mg/dL 07/19/2025 3:25 AM CDT [facility] CREATININE 0.83 0.50 - 0.99 mg/dL 07/19/2025 3:25 AM CDT [facility] BUN/CREATININE RATIO SEE NOTE: 6 - 22 (calc) 07/19/2025 3:25 AM CDT [facility] Comment: Not Reported: BUN and Creatinine are within reference range. EGFR 91 > OR = 60 mL/min/1. 73m2 07/19/2025 3:25 AM CDT [facility] UREA NITROGEN (BUN) 10 7 - 25 mg/dL 07/19/2025 3:25 AM CDT [facility] ELECTROLYTE BALANCE 7 7 - 17 mmol/L (calc) 07/19/2025 3:25 AM CDT [facility] CHLORIDE 105 98 - 110 mmol/L 07/19/2025 3:25 AM CDT [facility] Blood BLOOD SPECIMEN / Unknown [facility] / Unknown 07/18/2025 8:36 AM CDT 07/18/2025 8:37 AM CDT Haresh Lobo MD CHEMISTRY Final R esult [facility] [place] [place] [address], [place] [phone] * SCAN-CARDIAC STRIP (05/28/2025 7:21 AM CDT) Scanner OTHER Final Result * Vitamin D 25-OH AM (05/28/2025 5:27 AM CDT) VITAMIN D TOTAL 50.5 20.0 - 80.0 ng/mL 05/28/2025 6:35 AM CDT [facility] Blood BLOOD SPECIMEN / Unknown Venipuncture / Unknown 05/28/2025 5:27 AM CDT 05/28/2025 5:39 AM CDT Narrative [facility] - 05/28/2025 6:35 AM CDT Vitamin D Status Deficiency: <20 ng/mL Insufficiency: 20-29 ng/mL Sufficiency: 30-80 ng/mL Possible Toxicity: >80 ng/mL Based on [place] of Medicine recommendations Biotin supplements may cause clinically significant interference for this test assay. If interference is suspected, it is strongly recommended that biotin is discontinued for at least one week prior to retesting. Wicho Ashby MD SEND OUTS Denisha l Result Performing Organization Address [facility] [address] [facility] Co de Phone Number [facility] [address] [place] [address], [place] * WBC AM (05/28/2025 5:27 AM CDT) WHITE BLOOD COUNT 10.5 4.5 - 11.0 thou/cu mm 05/28/2025 5:51 AM CDT [facility] NRBC 0.0 % 05/28/2025 5:51 AM CDT [facility] ABS NRBC 0.0 thou /cu mm 05/28/2025 5:51 AM CDT [facility] Blood BLOOD SPECIMEN / Unknown Venipuncture / Unknown 05/28/2025 5:27 AM CDT 05/28/2025 5:39 AM CDT Wicho Ashby MD HEMATOLOGY Denisha l Result Performing Organization Address [facility] de Phone Number [facility] [address] [place] [address], [place] * (ABNORMAL) Hemoglobin AM (05/28/2025 5:27 AM CDT) Only the most recent of5 resultswithin the time period is included. HEMOGLOBIN 8.8(L) 12.0 - 16.0 g/dL 05/28/2025 5:51 AM CDT [facility] MCV 88 80 - 100 fL 05/28/2025 5:51 AM CDT [facility] Blood BLOOD SPECIMEN / Unknown Venipuncture / Unknown 05/28/2025 5:27 AM CDT 05/28/2025 5:39 AM CDT Wicho Ashby MD HEMATOLOGY Denisha l Result Performing Organization Address City/[facility] [address] [facility] Co de Phone Number [facility] [address] [address], [place] * SODIUM (05/28/2025 5:27 AM CDT) SODIUM 139 136 - 145 mmol/L 05/28/2025 6:35 AM CDT [facility] Blood BLOOD SPECIMEN / Unknown Venipuncture / Unknown 05/28/2025 5:27 AM CDT 05/28/2025 5:39 AM CDT Wicho Ashby MD CHEMISTRY Denisha l Result Performing Organization Address City/[facility] [address]/ZIP Co de Phone Number [facility] [address] [address], [place] * POTASSIUM (05/28/2025 5:27 AM CDT) Only the most recent of6 resultswithin the time period is included. POTASSIUM 4.0 3.5 - 5.1 mmol/L 05/28/2025 6:35 AM CDT [facility] Blood BLOOD SPECIMEN / Unknown Venipuncture / Unknown 05/28/2025 5:27 AM CDT 05/28/2025 5:39 AM CDT Wicho Ashby MD CHEMISTRY Denisha l Result Performing Organization Address City/[facility] [address]/ZIP Co de Phone Number [facility] [address] [address], [place] * CREATININE (05/28/2025 5:27 AM CDT) eGFR >90 >90 mL/min/1.7 3m2 05/28/2025 6:35 AM CDT [facility] Comment:As of 2022, eG FR is calculated by the CKD-EPI creatinine equation without race adjustment. eGFR can be influenced by muscle mass, exercise, and diet. The reported eGFR is an estimation only and is only applicable if the renal function is stable. CREATININE 0.80 0.50 - 0.90 mg/dL 05/28/2025 6:35 AM CDT [facility] Blood BLOOD SPECIMEN / Unknown Venipuncture / Unknown 05/28/2025 5:27 AM CDT 05/28/2025 5:39 AM CDT Wicho Ashby MD CHEMISTRY Denisha l Result Performing Organization Address [facility] [address] [facility] Co de Phone Number [facility] [address] [place] [address], [place] * Magnesium (05/28/2025 5:27 AM CDT) Only the most recent of10 resultswithin the time period is included. MAGNESIUM 1.9 1.6 - 2.6 mg/dL 05/28/2025 6:35 AM CDT [facility] Blood BLOOD SPECIMEN / Unknown Venipuncture / Unknown 05/28/2025 5:27 AM CDT 05/28/2025 5:39 AM CDT Jasmyne Ornelas NP CHEMISTRY Final Res ult Performing Organization Address [facility] [address]/[facility] de Phone Number [facility] [address] [place] [address], [place] * CALCIUM IONIZED HOSPITAL DRAW ONLY (05/28/2025 5:27 AM CDT) Only the most recent of4 resultswithin the time period is included. CALCIUM,IONIZE D 1.18 1.15 - 1.27 mmol/L 05/28/2025 5:43 AM CDT [facility] Blood BLOOD SPECIMEN / Unknown Venipuncture / Unknown 05/28/2025 5:27 AM CDT 05/28/2025 5:36 AM CDT Wicho Ashby MD CHEMISTRY Denisha l Result Performing Organization Address [facility] [address]/[facility] Co de Phone Number [facility] [address] [place] [address], [place] * SCAN-CARDIAC STRIP (05/28/2025 12:17 AM CDT) us Scanner OTHER Final Result * (ABNORMAL) PROTIME-INR (05/27/2025 11:45 PM CDT) Only the most recent of4 resultswithin the time period is included. INR 1.2 <1.3 05/28/2025 12:10 AM CDT [facility] PROTIME 13.4(H) 10.6 - 12.4 sec 05/28/2025 12:10 AM CDT [facility] Blood BLOOD SPECIMEN / Unknown Butterfly / Unknown 05/27/2025 11:45 PM CDT 05/27/2025 11:53 PM CDT Narrative [facility] - 05/28/2025 12:10 AM CDT Therapeutic [...] if the patient is on UFH. us Jasmyne Ornelas NP HEMATOLOGY Final Res ult [facility] [address] [place] [id number], * SCAN-CARDIAC STRIP (05/27/2025 4:48 PM CDT) us Scanner OTHER Final Result * (ABNORMAL) GLUCOSE METER (05/27/2025 4:08 PM CDT) Only the most recent of28 resultswithin the time period is included. GLUCOSE METER 121(H) 65 - 100 mg/dL 05/27/2025 4:09 PM CDT [facility] Blood BLOOD SPECIMEN / Unknown 05/27/2025 4:08 PM CDT 05/27/2025 4:09 PM CDT us Haresh Lobo MD CHEMISTRY Final R esult Performing Organization Address [facility] [address]/ZIP Co de Phone Number [facility] [address] [place] [address], [place] * test, urine TODAY (05/27/2025 9:48 AM CDT) ,URIN E Negative Negative 05/27/2025 10:05 AM CDT [facility] Urine URINE SPECIMEN / Unknown Non-Blood / Unknown 05/27/2025 9:48 AM CDT 05/27/2025 9:55 AM CDT us Wicho Ashby MD URINE Denisha l Result Performing Organization Address [facility] Co de Phone Number [facility] [address] [place] [address], [place] * SCAN-CARDIAC STRIP (05/27/2025 7:27 AM CDT) us Scanner OTHER Final Result * CWS PATH REVIEW HEMATOLOGY (05/27/2025 4:48 AM CDT) Pathologist [facility] PATH COMMENT Comment 06/01/2025 7:12 AM CDT [facility] Comment: If the absolute lymphocytosis persists and/or is unexplained, consider peripheral blood morphology study for further evaluation. Reviewed by Anum Taveras [place], MS (ASCP) on 05/31/2025 Blood BLOOD SPECIMEN / Unknown Venipuncture / Unknown 05/27/2025 4:48 AM CDT 05/27/2025 5:04 AM CDT us Jasmyne Ornelas FIELD LOGISTICS COORDINATOR LABORATORY Final Res ult Performing Organization Address [facility]/ZIP Co de Phone Number [facility] [address] [place] [address], [place] * (ABNORMAL) CBC WITH AUTO DIFFERENTIAL (05/27/2025 4:48 AM CDT) Only the most recent of4 resultswithin the time period is included. WHITE BLOOD COUNT 15.4(H) 4.5 - 11.0 thou/cu mm 05/27/2025 6:05 AM T [facility] RED BLOOD COUNT 2.81(L) 4.00 - 5.20 mil/cu mm 05/27/2025 6:05 AM T [facility] HEMOGLOBIN 8.0(L) 12.0 - 16.0 g/dL 05/27/2025 6:05 AM T [facility] HEMATOCRIT 25.0(L) 33.0 - 51.0 % 05/27/2025 6:05 AM T [facility] MCV 89 80 - 100 fL 05/27/2025 6:05 AM T [facility] MCH 28.5 26.0 - 34.0 pg 05/27/2025 6:05 AM T [facility] MCHC 32.0 32.0 - 36.0 g/dL 05/27/2025 6:05 AM T [facility] RDW 14.2 11.5 - 15.5 % 05/27/2025 6:05 AM T [facility] PLATELET COUNT 275 140 - 440 thou/cu mm 05/27/2025 6:05 AM T [facility] MPV 10.0 6.5 - 11.0 fL 05/27/2025 6:05 AM T [facility] NRBC 0.0 % 05/27/2025 6:05 AM T [facility] ABS NRBC 0.0 thou /cu mm 05/27/2025 6:05 AM T [facility] Blood BLOOD SPECIMEN / Unknown Venipuncture / Unknown 05/27/2025 4:48 AM CDT 05/27/2025 5:04 AM CDT Jasymne Ornelas FIELD LOGISTICS COORDINATOR HEMATOLOGY Final Res ult [facility] [address] [place] [address], [place] * (ABNORMAL) RED CELL MORPHOLOGY (05/27/2025 4:48 AM CDT) ELLIPTOCYTES Few 05/27/2025 6:05 AM CDT [facility] POLYCHROMASIA Slight 05/27/2025 6:05 AM CDT [facility] TARGET CELLS Few 05/27/2025 6:05 AM CDT [facility] RBC COMMENT Present(A) RBC morphology appears normal, RBC morphology within normal limits for newborns. 05/27/2025 6:05 AM CDT [facility] Blood BLOOD SPECIMEN / Unknown Venipuncture / Unknown 05/27/2025 4:48 AM CDT 05/27/2025 5:04 AM CDT Jasmyne Ornelas FIELD LOGISTICS COORDINATOR HEMATOLOGY Final Res ult Performing Organization Address [facility] [address] [facility]/ZIP Co de Phone Number [facility] [address] [place] [address], [place] * PLATELET ESTIMATE (05/27/2025 4:48 AM CDT) PLATELET ESTIMATE Adequate Adequate, No estimate 05/27/2025 6:05 AM CDT [facility] Blood BLOOD SPECIMEN / Unknown Venipuncture / Unknown 05/27/2025 4:48 AM CDT 05/27/2025 5:04 AM CDT Jasmyne Ornelas FIELD LOGISTICS COORDINATOR HEMATOLOGY Final Res ult [facility] [address] [place], [place] [id number], [place] * EXTRA TUBE GOLD/SST (05/27/2025 4:48 AM CDT) Blood BLOOD SPECIMEN / Unknown Extra Tube / Unknown 05/27/2025 4:48 AM CDT 05/27/2025 5:06 AM CDT us Wicho Ashby MD LABORATORY Denisha l Result [facility] LABORATORY [address] [place] [address], [place] * (ABNORMAL) MANUAL DIFFERENTIAL (05/27/2025 4:48 AM CDT) % NEUTROPHILS 46.0 % 05/27/2025 6:05 AM CDT [facility] TRAL LABORATORY % LYMPHOCYTES 47.0 % 05/27/2025 6:05 AM CDT [facility] TRAL LABORATORY % MONOCYTES 6.0 % 05/27/2025 6:05 AM CDT [facility] TRAL LABORATORY % EOSINOPHILS 1.0 % 05/27/2025 6:05 AM CDT [facility] TRAL LABORATORY % BASOPHILS 0.0 % 05/27/2025 6:05 AM CDT [facility] TRAL LABORATORY NEUTROPHILS ABSOLUTE 7.1(H) 1.7 - 7.0 thou/cu mm 05/27/2025 6:05 AM CDT [facility] TRAL LABORATORY LYMPHOCYTES ABSOLUTE 7.2(H) 0.9 - 2.9 thou/cu mm 05/27/2025 6:05 AM CDT [facility] TRAL LABORATORY MONOCYTES ABSOLUTE 0.9(H) <0.9 thou/cu mm 05/27/2025 6:05 AM CDT [facility] TRAL LABORATORY EOSINOPHILS ABSOLUTE 0.2 <0.5 thou/cu mm 05/27/2025 6:05 AM CDT [facility] TRAL LABORATORY BASOPHILS ABSOLUTE 0.0 <0.3 thou/cu mm 05/27/2025 6:05 AM CDT [facility] TRAL LABORATORY Blood BLOOD SPECIMEN / Unknown Venipuncture / Unknown 05/27/2025 4:48 AM CDT 05/27/2025 5:04 AM CDT us Jasmyne Ornelas FIELD LOGISTICS COORDINATOR HEMATOLOGY Final Res ult [facility] [address] [place] [address], * TYPE & SCREEN (05/27/2025 4:48 AM CDT) Only the most recent of2 resultswithin the time period is included. ABORH A Rh Positive 05/27/2025 5:43 AM CDT [facility] LAB BLOOD BANK ANTIBODY SCREEN Negative Negative 05/27/2025 5:43 AM CDT [facility] BLOOD BANK SPECIMEN EXPIRATION DATE/TIME 05/30/25 23:59 05/27/2025 5:43 AM CDT [facility] BLOOD BANK Blood BLOOD SPECIMEN / Unknown Venipuncture / Unknown 05/27/2025 4:48 AM CDT 05/27/2025 5:04 AM CDT Wicho Ashby MD BLOOD BANK Denisha l Result Performing Organization Address City/[facility] Co de Phone Number [facility] LAB BLOOD BANK [address] [place] [address], [place] [phone] * HEPARIN LEVEL (05/27/2025 4:48 AM CDT) Only the most recent of10 resultswithin the time period is included. HEPARIN ANTI-XA 0.46 See Comment U/mL 05/27/2025 6:12 AM CDT [facility] TRAL LABORATORY Blood BLOOD SPECIMEN / Unknown Venipuncture / Unknown 05/27/2025 4:48 AM CDT 05/27/2025 5:04 AM CDT Narrative [facility]-CENTRAL LABORATORY - 05/27/2025 6:12 AM CDT UFH [...] 0.15 - 0.25 U/mL Critical: >1.00 U/mL Jv Baron MD HEMATOLOGY Final Result Performing Organization Address [facility] [address]/[facility] Co de Phone Number [facility]ORATORY [address] [place] [address], * Screening hemoglobin A1c AM (order if not done w/in 3 mos) (05/27/2025 4:48 AM CDT) Pathologist [facility] HEMOGLOBIN A1C MONITORING (POCT) 4.9 <=6.4 % 05/27/2025 3:08 PM CDT [facility] LABORATORY Blood BLOOD SPECIMEN / Unknown Venipuncture / Unknown 05/27/2025 4:48 AM CDT 05/27/2025 5:04 AM CDT [facility] LABORATORY - 05/27/2025 3:08 PM CDT (<=6.9%) Indicates good control (7.0% to 7.9%) Indicates fair control (>=8.0%) Indicates poor control NOTE: These thresholds are guidelines and individual targets may vary. Falsely low levels may be seen with: Recent Transfusion, Recent Significant Blood Loss, Hemolytic Diseases, or Falsely elevated levels may be seen with: Untreated Anemias, Splenectomy Wicho Ashby MD CHEMISTRY Denisha l Result Performing Organization Address [facility] Co de Phone Number [facility] LABORATORY [address] * (ABNORMAL) Hepatic function panel AM (05/27/2025 4:48 AM CDT) Only the most recent of5 resultswithin the time period is included. Pathologist [facility] ALBUMIN 3.2(L) 4.0 - 4.9 g/dL 05/27/2025 5:33 AM CDT [facility] TRAL LABORATORY PROTEIN,TOTAL 5.3(L) 6.0 - 8.0 g/dL 05/27/2025 5:33 AM CDT [facility] TRAL LABORATORY BILIRUBIN,TOTAL 0.3 0.0 - 1.2 mg/dL 05/27/2025 5:33 AM CDT [facility] TRA LABORATORY BILIRUBIN,DIRECT 0.1 0.0 - 0.2 mg/dL 05/27/2025 5:33 AM CDT [facility] LABORATORY BILIRUBIN,INDIRE CT 0.2 0.2 - 0.8 mg/dL 05/27/2025 5:33 AM CDT [facility] LABOR[facility] ALK PHOSPHATASE 54 35 - 104 IU/L 05/27/2025 5:33 AM CDT [facility] ALT (SGPT) 177(H) 10 - 35 IU/L 05/27/2025 5:33 AM CDT [facility] AST (SGOT) 161(H) 10 - 35 IU/L 05/27/2025 5:33 AM CDT [facility] Blood BLOOD SPECIMEN / Unknown Venipuncture / Unknown 05/27/2025 4:48 AM CDT 05/27/2025 5:03 AM CDT Wicho Ashby MD CHEMISTRY Denisha l Result [facility]OR[facility]ORY [address] [place] [id number], * (ABNORMAL) APTT (05/27/2025 2:11 AM CDT) Only the most recent of8 resultswithin the time period is included. APTT 53(H) 25 - 36 sec 05/27/2025 2:33 AM CDT [facility] LABORATORY Blood BLOOD SPECIMEN / Unknown Butterfly / Unknown 05/27/2025 2:11 AM CDT 05/27/2025 2:20 AM CDT Narrative [facility] LABOR[facility]ORY - 05/27/2025 2:33 AM CDT Therapeutic Range: 59-89 seconds Wciho Ashby MD HEMATOLOGY Denisha l Result Performing Organization Address City/[facility] [address]/ZIP Co de Phone Number [facility] [address] [place] [id number], [place] * SCAN-CARDIAC STRIP (05/26/2025 7:58 PM CDT) us Scanner OTHER Final Result * LACTATE VENOUS (05/26/2025 12:11 PM CDT) Only the most recent of2 resultswithin the time period is included. [facility] LACTATE,VENOUS 1.3 0.5 - 2.0 mmol/L 05/26/2025 12:42 PM CDT [facility] LABORATORY Blood BLOOD SPECIMEN / Unknown Butterfly / Unknown 05/26/2025 12:11 PM CDT 05/26/2025 12:16 PM CDT Haresh Lobo MD CHEMISTRY Final R esult Performing Organization Address [facility] [address] [facility] Co de Phone Number [facility] [address] [place] [id number], [place] * ECHO TTE COMPLETE WO CONTRAST (05/26/2025 11:17 AM CDT) Only the most recent of2 resultswithin the time period is included. Pathologist [facility] AORTIC VALVE MEAN PG 6 mmHg EJECTION [...] kg Tech: Referring MD: HARESH LOBO Site: [facility] Reading Location: W Patient Location: Inpatient. Procedure: 2D, Color Doppler [...] . This study was interpreted by an [facility] accredited facility. Final Procedure Note Haresh Lobo MD - 05/26/2025 ECHOCARDIOGRAM SHANELL MENDEZ : 1985 39 years Study Date: 05/26/2025 10:33:03 AM Gender: F BP: 121/81 mmHg Height: 170.00 cm BSA: 2.10 m Weight: 99.00 kg Tech: Referring MD: HARESH LOBO Site: [facility] Reading Location: [facility] Patient Location: Inpatient. Procedure: 2D, Color [...] . This study was interpreted by an [facility] accredited facility. Final us Haresh Lobo [...] For Patients: As a result of the Century Cures Act, medical imagingexams and procedure reports [...] 8:59:42 AM (Electronically Signed) us Jasmyne Ornelas FIELD LOGISTICS COORDINATOR [place] Final Res ult * (ABNORMAL) LACTATE ARTERIAL (05/26/2025 4:59 AM CDT) Only the most recent of5 resultswithin the time period is included. LACTATE,ARTERI AL 2.7(HH) 0.5 - 1.6 mmol/L 05/26/2025 5:46 AM CDT [facility] Dtime LABORATORY-[facility] TRAL LABORATORY Blood BLOOD SPECIMEN / Unknown Diversion Device / Unknown 05/26/2025 4:59 AM CDT 05/26/2025 5:17 AM CDT us Jasmyne Ornelas FIELD LOGISTICS COORDINATOR CHEMISTRY Final Res ult [facility] Dtime LABORATORY-CENTRAL LABORATORY [address] [place] [address], [place] * SCAN-CARDIAC STRIP (05/25/2025 3:32 PM [...] @ May 25 2025 6:19AM (Electronically Signed) [email or web address] Narrative 05/25/2025 6:19 AM CDT For Patients: [...] Bones: No acute findings. Procedure Note Norma Smith MD - 05/25/2025 For Patients: As a [...] @ May 25 2025 6:19AM (Electronically Signed) [email or web address] us Jasmyne Ornelas FIELD LOGISTICS COORDINATOR GENERAL IMAGING Final Res ult * (ABNORMAL) O2 SATURATION,MEASURED (05/25/2025 4:23 AM CDT) Only the most recent of6 resultswithin the time period is included. O2 SATURATION,MARLENE SURED 77 % 05/25/2025 4:43 AM CDT [facility] TRAL LABORATORY HEMOGLOBIN,BLO OD GAS 8.9(L) 12.0 - 16.0 g/dL 05/25/2025 4:43 AM CDT [facility] TRAL LABORATORY SOURCE, O2M Mixed Venous 05/25/2025 4:43 AM CDT [facility] Blood BLOOD SPECIMEN / Unknown Non-Lab Venipuncture / Unknown 05/25/2025 4:23 AM CDT 05/25/2025 4:38 AM CDT Narrative [facility] LABORAT[facility] - 05/25/2025 4:43 AM CDT Reference Range for: Arterial Source (94-98) Non-Arterial Source (70-75) us Jadiel Lucero MD CHEMISTRY Final R esult [facility] LABORATORY [address] [place] [address], * (ABNORMAL) COMPREHENSIVE BLOOD GAS MIXED VENOUS (05/24/2025 10:09 PM CDT) Only the most recent of5 resultswithin the time period is included. O2 SATURATION, MEASURED, MIXED VENOUS 68(L) 70 - 75 % 05/24/2025 10:09 PM CDT [facility] LABORATORY- NTRAL LABORATORY PATIENT TEMPERATURE 37.0 Degrees C 05/24/2025 10:09 PM CDT [facility] LABORATORY COLLECTION SITE PULMONARY ARTERY 05/24/2025 10:09 PM CDT [facility] LABORATORY HEMOGLOBIN,BLOO D GAS 8.9(L) 12.0 - 16.0 g/dL 05/24/2025 10:09 PM CDT [facility] LABORATORY Blood BLOOD SPECIMEN / Unknown 05/24/2025 10:09 PM CDT 05/24/2025 10:09 PM CDT us Jadiel Lucero MD CHEMISTRY Final R esult [facility] LABORATORY [address] [place] [address], [place] * SCAN-CARDIAC STRIP (05/24/2025 6:23 PM CDT) us Scanner OTHER Final Result * (ABNORMAL) ARTERIAL BLOOD GAS (05/24/2025 2:05 PM CDT) Only the most recent of2 resultswithin the time period is included. PH, ARTERIAL 7.36 7.35 - 7.45 05/24/2025 2:18 PM CDT [facility] TRAL LABORATORY PCO2, ARTERIAL 38 32 - 45 mmHg 05/24/2025 2:18 PM CDT [facility] TRAL LABORATORY PO2, ARTERIAL 136(H) 83 - 108 mmHg 05/24/2025 2:18 PM CDT [facility] TRAL LABORATORY HCO3, ARTERIAL 22 21 - 28 mmol/L 05/24/2025 2:18 PM CDT [facility] TRAL LABORATORY BASE EXCESS, ARTERIAL -3.6(L) -2.0 - 3.0 05/24/2025 2:18 PM CDT [facility] TRAL LABORATORY O2 SATURATION, ARTERIAL 100(H) 94 - 98 % 05/24/2025 2:18 PM CDT [facility] TRAL LABORATORY INSPIRED O2 05/24/2025 2:18 PM CDT [facility] TRAL LABORATORY Comment:Unit of Measure: Lit ers (L) if <=20; Percent (%) if >20 PATIENT TEMPERATURE 37.0 Degrees C 05/24/2025 2:18 PM CDT [facility] TRAL LABORATORY Blood ARTERIAL BLOOD SPECIMEN / Unknown Non-Lab Venipuncture / Unknown 05/24/2025 2:05 PM CDT 05/24/2025 2:13 PM CDT Jadiel Lucero MD CHEMISTRY Final R esult Performing Organization Address [facility] [address] [facility] Co de Phone Number [facility] LAB[facility]ORY [address] [address], [place] * (ABNORMAL) CK Total ECMO (05/24/2025 12:00 PM CDT) Only the most recent of5 resultswithin the time period is included. CK,TOTAL 195(H) 26 - 192 IU/L 05/24/2025 12:37 PM CDT [facility] LABORATORY Blood BLOOD SPECIMEN / Unknown Non-Lab Venipuncture / Unknown 05/24/2025 12:00 PM CDT 05/24/2025 12:10 PM CDT Jasmyne Ornelas NP CHEMISTRY Final Res ult Performing Organization Address [facility] [address]/[facility] de Phone Number [facility] [address] [address], [place] * (ABNORMAL) FIBRINOGEN,QUANTITATIVE (05/24/2025 10:42 AM CDT) Only the most recent of3 resultswithin the time period is included. FIBRINOGEN,JONY NTITATIVE 127(L) 193 - 401 mg/dL 05/24/2025 11:32 AM CDT [facility] LABORATORY Blood BLOOD SPECIMEN / Unknown Non-Lab Venipuncture / Unknown 05/24/2025 10:42 AM CDT 05/24/2025 10:48 AM CDT Jadiel Lucero MD HEMATOLOGY Final R esult Performing Organization Address [facility] [address]/ZIP Co de Phone Number [facility] [address] [place] [address], [place] * Beta 2 Glycoprotein NARINDER (05/24/2025 8:48 AM CDT) Beta 2 GP1 Ab IgA <4.0 <=20.0 CU 05/26/2025 11:55 AM CDT [facility] LABORATORY Beta 2 GP1 Ab IgG <6.4 <=20.0 CU 05/26/2025 11:55 AM CDT [facility] LABORATORY Beta 2 GP1 Ab IgM <1.1 <=20.0 CU 05/26/2025 11:55 AM CDT [facility] LABORATORY Blood BLOOD SPECIMEN / Unknown Non-Lab Venipuncture / Unknown 05/24/2025 8:48 AM CDT 05/24/2025 9:06 AM CDT [facility] - 05/26/2025 11:55 AM CDT Negative <=20 Positive >20 These results were obtained with the [employer] Quanta Flash chemiluminescent immunoassay. Values obtained with different manufacturers' assay methods may not be used interchangeably. The magnitude of the reported autoantibody levels cannot always be correlated to an endpoint titer. Jv Baron MD SEND OUTS Final Result Performing Organization Address [facility] [address]/[facility] Co de Phone Number [facility] [address] [place] [address], [place] * (ABNORMAL) Cardiolipin Antibody (aka Anticardiolipin Antibody) (05/24/2025 8:48 AM CDT) Cardiolipin IgA 2.2 <=20.0 CU 11:55 AM CDT [facility] TRAL LABORATORY Cardiolipin IgG 28.2(H) <=20.0 CU 11:55 AM CDT [facility] TRAL LABORATORY Cardiolipin IgM 1.5 <=20.0 CU 5 11:55 AM CDT [facility] LABORAT[facility] TRAL LABORATORY Blood BLOOD SPECIMEN / Unknown Non-Lab Venipuncture / Unknown 05/24/2025 8:48 AM CDT 05/24/2025 9:06 AM CDT [facility] LABORATORY - 05/26/2025 11:55 AM CDT Interpretation: Moderate to high titers (40 GPL or MPL by LESLIE assays) of aCL correlate better with aPL-related clinical events than do lower titers; IgG is more strongly associated with clinical events than is IgM ([facility] 378(21):2010). [employer]'s studies have shown the following correlation between anti- cardiolipin antibody levels quantified by the BioFlAOTMP Chemiluminescent method compared to LESLIE (Antibodies 2016,5,14): For IgG aCL: 95 CU corresponds to 40 GPL For IgM aCL: 31 CU corresponds to 40 MPL us Jv Baron MD SEND OUTS Final Result [facility] [address] [place] [address], * (ABNORMAL) Lupus Anticoagulant (05/24/2025 8:48 AM CDT) PROTIME 12.3 10.6 - 12.4 sec 05/24/2025 1:55 PM CDT [facility] TRAL LABORATORY INR 1.1 <1.3 05/24/2025 1:55 PM CDT [facility] TRAL LABORATORY THROMBIN TIME >80(H) <16 sec 05/24/2025 1:55 PM CDT [facility] DRVVT RATIO 1.28(H) <=1.20 05/24/2025 1:55 PM CDT [facility] TRAL LABORATORY SCT RATIO 0.88 <=1.16 05/24/2025 1:55 PM CDT [facility] APTT 116(H) 25 - 36 sec 05/24/2025 1:55 PM CDT [facility] LABORATORY Blood BLOOD SPECIMEN / Unknown Non-Lab Venipuncture / Unknown 05/24/2025 8:48 AM CDT 05/24/2025 9:07 AM CDT Narrative [facility] - 05/24/2025 1:55 PM CDT LUPUS ANTICOAGULANT DETECTED Lupus anticoagulant testing results may be falsely positive in patients on anti-coagulation therapy. The diagnosis of anti-phospholipid syndrome requires two positive lupus anticoagulant test results obtained at least 12 weeks apart, which have preferably been performed when the patient is off anti-coagulation. Testing for Cardiolipin antibodies (UNF852/CRD) and Beta-2 Glycoprotein 1 antibodies ([id number]) is strongly recommended. Note that different PT/INR [...] any question or consultation: consider contacting the [facility] Thrombophilia and Coagulation Clinic. All anticoagulants (Warfarin, High level Heparin, Direct Oral Anticoagulants, Direct Thrombin Inhibitors) cause false positive lupus anticoagulant test results. We recommend disregarding lupus anticoagulant results obtained while patient is on any form of anticoagulation. For [facility] patients consider consulting with Anticoagulation and Thrombophilia Clinic at [phone]. Ancillary studies indicate the likely presence of an anticoagulant medication. Jv Baron MD SEND OUTS Final Result [facility] [address] [place] [address], [place] * Protein S (05/24/2025 8:48 AM CDT) PROTEIN S, FREE 111 55 - 124 % 05/24/2025 1:52 PM CDT [facility] LABORATORY Blood BLOOD SPECIMEN / Unknown Non-Lab Venipuncture / Unknown 05/24/2025 8:48 AM CDT 05/24/2025 9:07 AM CDT Jv Baron MD SEND OUTS Final Result [facility] [address] [place] [address], * Factor V Leiden (05/24/2025 8:48 AM CDT) FACTOR V LEIDEN Mutation not detected Mutation not detected 05/30/2025 6:10 AM CDT [facility] NTRAL LABORATORY INTERPRETATION Patient does not carry the Leiden ([id number]) mutation on either copy of the Factor V (F5) gene. 05/30/2025 6:10 AM CDT [facility] LABORATORY Blood BLOOD SPECIMEN / Unknown Non-Lab Venipuncture / Unknown 05/24/2025 8:48 AM CDT 05/24/2025 9:07 AM CDT Narrative [facility] LABORATORY - 05/30/2025 6:10 AM CDT Method: angie Factor II and Factor V Test Jv Baron MD LABORATORY Final Result Performing Organization Address City/[facility] [address]/ZIP Co de Phone Number [facility] [address] [place] [address], [place] * Factor ll Gene Mutation (05/24/2025 8:48 AM CDT) FACTOR II GENE MUTATION Mutation not detected Mutation not detected 05/30/2025 6:10 AM CDT [facility] INTERPRETATION Patient does not carry the [id number] mutation on either copy of the Factor II (F2) gene. 05/30/2025 6:10 AM CDT [facility] LABORATORY Blood BLOOD SPECIMEN / Unknown Non-Lab Venipuncture / Unknown 05/24/2025 8:48 AM CDT 05/24/2025 9:07 AM CDT Narrative [facility] LABORATORY - 05/30/2025 6:10 AM CDT Method: angie Factor II and Factor V Test Jv Baron MD SEND OUTS Final Result [facility] LABOR[facility] [address] [place] [address], * Protein C (05/24/2025 8:48 AM CDT) PROTEIN C ACTIVITY 135 70 - 150 % 05/24/2025 1:52 PM CDT [facility] LABORATORY Blood BLOOD SPECIMEN / Unknown Non-Lab Venipuncture / Unknown 05/24/2025 8:48 AM CDT 05/24/2025 9:07 AM CDT Jv Baron MD SEND OUTS Final Result Performing Organization Address [facility] [address]/ZIP Co de Phone Number [facility]OR[facility] [address] [place] [address], * Antithrombin III (05/24/2025 8:48 AM CDT) Pathologist [facility] ANTITHROMBIN III 89 80 - 135 % 05/24/20 1:52 PM CDT [facility] LABORATORY Blood BLOOD SPECIMEN / Unknown Non-Lab Venipuncture / Unknown 05/24/2025 8:48 AM CDT 05/24/2025 9:07 AM CDT Jv Baron MD HEMATOLOGY Final Result Performing Organization Address City/[facility] [address]/ZIP Co de Phone Number [facility]ORAT[facility] [address] [place] [address], * (ABNORMAL) COMPREHENSIVE BLOOD GAS ARTERIAL (05/24/2025 8:09 AM CDT) Only the most recent of9 resultswithin the time period is included. PH, ARTERIAL 7.49(H) 7.35 - 7.45 05/24/2025 8:09 AM CDT [facility] TRAL LABORATORY PCO2, ARTERIAL 30(L) 32 - 45 mmHg 05/24/2025 8:09 AM CDT [facility] TRAL LABORATORY PO2, ARTERIAL 153(H) 83 - 108 mmHg 05/24/2025 8:09 AM CDT [facility] TRAL LABORATORY HCO3, ARTERIAL 23 21 - 28 mmol/L 05/24/2025 8:09 AM CDT [facility] BASE EXCESS, ARTERIAL 0.4 -2.0 - 3.0 05/24/2025 8:09 AM CDT [facility] TRAL LABORATORY O2 SATURATION, ARTERIAL 100(H) 94 - 98 % 05/24/2025 8:09 AM CDT [facility] TRAL LABORATORY INSPIRED O2 30 05/24/2025 8:09 AM CDT [facility] TRAL LABORATORY Comment:Unit of Measure: Lit ers (L) if <=20; Percent (%) if >20 PATIENT TEMPERATURE 37.0 Degrees C 05/24/2025 8:09 AM CDT [facility] LABORATORY Blood BLOOD SPECIMEN / Unknown 05/24/2025 8:09 AM CDT 05/24/2025 8:10 AM CDT us Jadiel Lucero MD CHEMISTRY Final R esult Performing Organization Address City/[facility] [address]/ZIP Co de Phone Number [facility]OR[facility] [address] [place] [address], [place] * (ABNORMAL) LD Total ECMO (05/24/2025 4:06 AM CDT) Only the most recent of2 resultswithin the time period is included. LD,TOTAL 289(H) 135 - 214 IU/L 05/24/2025 5:04 AM CDT [facility] LABORATORY Blood BLOOD SPECIMEN / Unknown Non-Lab Venipuncture / Unknown 05/24/2025 4:06 AM CDT 05/24/2025 4:18 AM CDT us Jasmyne Ornelas NP CHEMISTRY Final Res ult Performing Organization Address City/[facility] [address]/ZIP Co de Phone Number [facility] [address] [place] [address], [place] * Phosphorus ECMO (05/24/2025 4:06 AM CDT) PHOSPHORUS 2.9 2.5 - 4.5 mg/dL 05/24/2025 4:47 AM CDT [facility] LABORATORY Blood BLOOD SPECIMEN / Unknown Non-Lab Venipuncture / Unknown 05/24/2025 4:06 AM CDT 05/24/2025 4:18 AM CDT Jasmyne Ornelas FIELD LOGISTICS COORDINATOR CHEMISTRY Final Res ult Performing Organization Address [facility] [address]/[facility] Co de Phone Number [facility] [address] [address], [place] * Platelet Count ECMO (05/24/2025 12:25 AM CDT) Only the most recent of3 resultswithin the time period is included. [facility] PLATELET COUNT 167 140 - 440 thou/cu mm 05/24/2025 12:42 AM CDT [facility] MPV 9.7 6.5 - 11.0 fL 05/24/2025 12:42 AM CDT [facility] Blood BLOOD SPECIMEN / Unknown Non-Lab Venipuncture / Unknown 05/24/2025 12:25 AM CDT 05/24/2025 12:33 AM CDT Jasmyne Ornelas FIELD LOGISTICS COORDINATOR HEMATOLOGY Final Res ult Performing Organization Address [facility] [address]/[facility] Co de Phone Number [facility] [address] [address], [place] * US Venous Lower Extremity Bilateral [...] (HS) ONE TIME (05/23/2025 2:48 PM CDT) [facility] TROPONIN T HS 255(H) 6-10 ng/L ng/L 05/23/2025 3:32 PM CDT [facility] Blood BLOOD SPECIMEN / Unknown Line/Port / Unknown 05/23/2025 2:48 PM CDT 05/23/2025 2:59 PM CDT us Jasmyne Ornelas FIELD LOGISTICS COORDINATOR CHEMISTRY Final Res ult [facility] [address] [place] [address], * 12 Lead EKG (05/23/2025 2:12 PM CDT) Only the most recent of2 resultswithin the time period is included. [facility] Interpretation Normal sinus rhythm Normal ECG When [...] NOW QTc 462 ms BEYOND NOW P [place] 64 degrees BEYOND NOW R [place] 66 degrees BEYOND NOW T [place] 18 degrees BEYOND NOW 05/23/2025 2:12 PM CDT 05/24/2025 3:14 PM CDT us Hilario Brown MBBS EKG ORD Final Result BEYOND NOW [place], [place] * XR Abdomen 1 View Portable [...] 1:31:55 PM (Electronically Signed) us Jasmyne Ornelas FIELD LOGISTICS COORDINATOR GENERAL IMAGING Final Res ult * (ABNORMAL) TROPONIN T(HS) ACUTE W/2HR REFLEX (05/23/2025 12:57 PM CDT) Only the most recent of2 resultswithin the time period is included. TROPONIN T HS 211(H) 6-10 ng/L ng/L 05/23/2025 1:41 PM CDT [facility] Blood BLOOD SPECIMEN / Unknown Non-Lab Venipuncture / Unknown 05/23/2025 12:57 PM CDT 05/23/2025 1:11 PM CDT [facility] 05/23/2025 1:41 PM CDT hs-cTnT [...] emergency department patient population. us Jasmyne Ornelas FIELD LOGISTICS COORDINATOR CHEMISTRY Final Res ult [facility] [address] [place] [address], [place] * (ABNORMAL) CBC W PLT NO DIFF (05/23/2025 12:57 PM CDT) Only the most recent of2 resultswithin the time period is included. WHITE BLOOD COUNT 19.9(H) 4.5 - 11.0 thou/cu mm 05/23/2025 1:17 PM CDT [facility] RED BLOOD COUNT 4.12 4.00 - 5.20 mil/cu mm 05/23/2025 1:17 PM CDT [facility] HEMOGLOBIN 11.9(L) 12.0 - 16.0 g/dL 05/23/2025 1:17 PM CDT [facility] HEMATOCRIT 35.8 33.0 - 51.0 % 05/23/2025 1:17 PM CDT [facility] MCV 87 80 - 100 fL 05/23/2025 1:17 PM CDT [facility] MCH 28.9 26.0 - 34.0 pg 05/23/2025 1:17 PM CDT [facility] MCHC 33.2 32.0 - 36.0 g/dL 05/23/2025 1:17 PM CDT [facility] RDW 13.9 11.5 - 15.5 % 05/23/2025 1:17 PM CDT [facility] PLATELET COUNT 186 140 - 440 thou/cu mm 05/23/2025 1:17 PM CDT [facility] MPV 9.4 6.5 - 11.0 fL 05/23/2025 1:17 PM CDT [facility] NRBC 0.0 % 05/23/2025 1:17 PM CDT [facility] ABS NRBC 0.0 thou /cu mm 05/23/2025 1:17 PM CDT [facility] Blood BLOOD SPECIMEN / Unknown Non-Lab Venipuncture / Unknown 05/23/2025 12:57 PM CDT 05/23/2025 1:11 PM CDT Narrative [facility] - 05/23/2025 1:17 PM CDT Obtain before initiating IV heparin therapy if not done within previous 24 hours. Obtain before initiating IV heparin therapy if not done within previous 24 hours. us Jadiel Lucero MD HEMATOLOGY Final R esult [facility] [address] [place] [address], [place] * (ABNORMAL) URINALYSIS MICROSCOPIC (05/23/2025 12:56 PM CDT) RBC 0-2 0-2, None Seen /HPF 05/23/2025 2:39 PM CDT [facility] WBC 0-2 0-2, 3-5, None Seen /HPF 05/23/2025 2:39 PM CDT [facility] BACTERIA None Seen None Seen, Rare, Few Bacteria/ HPF 05/23/2025 2:39 PM CDT [facility] EPITHELIAL CELLS None Seen None Seen, Few Epi/HPF 05/23/2025 2:39 PM CDT [facility] HYALINE CASTS 6-10(A) 0-2, 3-5 /LPF 05/23/2025 2:39 PM CDT [facility] GRANULAR CASTS 0-2(A) (none) /LPF 05/23/2025 2:39 PM CDT [facility] Urine URINE SPECIMEN / Unknown Non-Blood / Unknown 05/23/2025 12:56 PM CDT 05/23/2025 1:13 PM CDT Jasmyne Ornelas FIELD LOGISTICS COORDINATOR URINE Final Res ult [facility] [address] [place] [address], [place] * (ABNORMAL) Urinalysis w Reflex Microscopic if Positive - ECMO (05/23/2025 12:56 PM CDT) COLOR Yellow Yellow Color 05/23/2025 2:39 PM CDT [facility] CLARITY Clear Clear Clarity 05/23/2025 2:39 PM CDT [facility] SPECIFIC GRAVITY,URINE >=1.030(A) 1.010, 1.015, 1.020, 1.025 05/23/2025 2:39 PM CDT [facility] PH,URINE 6.0 6.0, 7.0, 8.0, 5.5, 6.5, 7.5, 8.5 05/23/2025 2:39 PM CDT [facility] UROBILINOGEN, QUALITATIVE Normal Normal EU/dl 05/23/2025 2:39 PM CDT [facility] PROTEIN, URINE 100(A) Negative mg/dL 05/23/2025 2:39 PM CDT [facility] GLUCOSE, URINE Negative Negative mg/dL 05/23/2025 2:39 PM CDT [facility] KETONES,URINE Negative Negative mg/dL 05/23/2025 2:39 PM CDT [facility] BILIRUBIN,URI NE Negative Negative 05/23/2025 2:39 PM CDT [facility] OCCULT BLOOD,URINE Trace(A) Negative 05/23/2025 2:39 PM CDT [facility] NITRITE Negative Negative 05/23/2025 2:39 PM CDT [facility] LEUKOCYTE ESTERASE Negative Negative 05/23/2025 2:39 PM CDT [facility] Urine URINE SPECIMEN / Unknown Non-Blood / Unknown 05/23/2025 12:56 PM CDT 05/23/2025 1:13 PM CDT us Jasmyne Ornelas FIELD LOGISTICS COORDINATOR URINE Final Res ult [facility] [address] [place] [id number], [place] * (ABNORMAL) ACTIVATED CLOTTING TIME [id number] ACT (05/23/2025 11:46 AM CDT) ACTIVATED CLOTTING TIME, POCT 332(H) 74 - 125 sec 05/23/2025 6:00 PM CDT [facility] Blood BLOOD SPECIMEN / Unknown 05/23/2025 11:46 AM CDT 05/23/2025 6:00 PM CDT us Hilario TAPIABS HEMATOLOGY Final Result Performing Organization Address [facility] [address] [facility]/ZIP Co de Phone Number [facility] [address] [place] [id number], [place] * CVL CORONARY ANGIOGRAM POSS PCI (05/23/2025 11:18 AM CDT) Anatomical Region Laterality Modality Other 05/23/2025 11:1 8 AM CDT Narrative Transcriptions Dylan Marquez MD - 05/23/2025 12:40 PM CDT [facility] Cardiac Catheterization Report Name: SHANELL MENDEZ Event Date: 05/23/2025 11:18 Excellian ID #: [id number] PAULINE #: [id number] Patient Class: Outpatient Diagnostic Physician: DYLAN MARQUEZ [facility] Interventional Physician: DYLAN MARQUEZ [facility] Referring Physician: Date: 1985 Gender: Female Age: [...] VA ECMO: 15F LFA, 23F RFV * [place] Tab leave in via RIJ, 6F Further therapy from ICU and CCU, Dr Parra present Consent & [place] Protocol [place] protocol was followed. TIME OUT conducted just prior tostarting procedure confirmed patient identity, site/side, procedure,patient position, and availability of correct equipment and implants (ifapplicable). Staff Name Title DYLAN MARQUEZ Film Editor Supervisor Azucena Lundy RN Nurse Briseida Rose CVT Scrub Lindsay Myers BOAT WRAPPER Jig Operator Renee Montemayor CVT Monitor Procedures ? Ultrasound [...] Estimated Brooke Index: 5.98 l/min/m2 Resistances PVR: [id number] PVR Index: 13.37 SVR: [id number] SVR Index: 1203.49 PVR/SVR: 0.01 Blood Flow [...] 1% Lidocaine 1 ml Subcut Dylan Marquez Dylan 11:24 (Existing) Epinephrine 10 mcg per kg [...] healthcare professional providing the sedation ends personal [id number]-eu-[id number] time with the patient. The medications listed above were verbally ordered by me and read back tome as documented above. Refer to the procedure log report for additional case details. electronically signed on 05/23/2025 12:40:19 PM with status of Final Dylan Marquez MD [facility] [address] [place] [address] (p) (f) us Provider Referring CV IMAGING Edited Result - Final * CT CHEST PE STUDY (05/23/2025 9:23 [...] from Last 3 Months Insurance [place] [id number] [employer] [place] [id number] Advance Directives * Full Code (Latest Code Status on File) Date Activated Date Inactivated Comments 05/24/2025 7:09 AM 05/28/2025 2:42 PM Question Answer Comments Code Status Discussion: Reviewed Preferences * Full Code Date Activated Date Inactivated Comments 05/23/2025 11:21 AM 05/24/2025 7:09 AM Question Answer Comments Code Status Discussion: Unable to Assess Preferences, Provider to review later 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
--- OUTSIDE RECORDS SUMMARY | 2025-08-20 21:16 | XMS_ITS | CCD ---
Author Name Interface, [id number] lity Address [address] [facility] [address] [address] Organization [facility] Address [address] [facility] [address] [address] Care Team Providers Care Hemmer Automatic Name Role Phone Torsten Morfin Unavailable Unavailable Allergies and Adverse Reactions Medication/Group Name Reaction Severity Date No known allergies Care Plan Date Type Value 09/28/2025 APPOINTMENT OV 20 MIN 09/28/2025 APPOINTMENT LAB 15 MIN 08/29/2025 APPOINTMENT LAB 15 MIN 08/15/2025 APPOINTMENT LAB 15 MIN 07/10/2025 APPOINTMENT LAB 15 MIN 07/06/2025 APPOINTMENT LAB 15 MIN 06/30/2025 APPOINTMENT LAB 10 MIN 06/30/2025 APPOINTMENT NEW PT CONSULT 6 0 MIN 06/30/2025 LABORDER Antithrombin III activity panel 06/30/2025 LABORDER Beta 2 glycoprot ein 1 abs (IgG, IgM) 06/30/2025 LABORDER Protein C activi ty panel 06/30/2025 LABORDER Protein S activi ty panel 06/30/2025 LABORDER PT INR panel 06/30/2025 LABORDER Cardiolipin Anti bodies (IgG, IgM) 06/30/2025 LABORDER CBC w/ auto diff 06/30/2025 LABORDER Lupus anticoagul ant panel 06/30/2025 LABORDER CMP 06/30/2025 LABORDER Chromogenic Fact or X assay panel 07/06/2025 LABORDER Chromogenic Fact or X assay panel 07/06/2025 LABORDER PT INR panel 07/10/2025 LABORDER PT INR panel 07/10/2025 LABORDER Chromogenic Fact or X assay panel 07/17/2025 LABORDER PT INR panel 07/17/2025 LABORDER Chromogenic Fact or X assay panel 07/28/2025 LABORDER Chromogenic Fact or X assay panel 07/28/2025 LABORDER PT INR panel 08/29/2025 LABORDER Chromogenic Fact or X assay panel 08/29/2025 LABORDER PT INR panel 09/28/2025 LABORDER CMP 09/28/2025 LABORDER Lupus anticoagul ant panel 09/28/2025 LABORDER CBC w/ auto diff 09/28/2025 LABORDER Cardiolipin Anti bodies (IgG, IgM) Reason for Visit LAB 15 MIN Encounters Date Name 09/28/2025 DVT - Deep vein thro mbosis 09/28/2025 DVT - Deep vein thro mbosis 09/28/2025 Antiphospholipid syn drome (disorder) 09/28/2025 Antiphospholipid syn drome (disorder) 08/29/2025 Antiphospholipid syn drome (disorder) 08/29/2025 DVT - Deep vein thro mbosis 09/28/2025 OV 20 MIN 09/28/2025 LAB 15 MIN 08/29/2025 LAB 15 MIN Immunizations Date Name Route Dose Instructions Refusal Reason Stat us Covid-19 vaccine (Moderna) Patient declined/rejected Not Administered Diagnostic Results Date Type Test Units Lower Limit Upper Limit Result Flag Comments Status Ordered By Specimen Source Lab Address 06/30 CBC w/ auto diff Patricia # (ANC) K/uL 1.6 6.6 4.4 FINAL [facility] , [address] [place] [id number] 0 06/30 CBC w/ auto diff IG % % 0.0 0.5 0.4 FINAL [facility] , [address] [place] [id number] 0 06/30 CBC w/ auto diff MO # K/uL 0.2 1.3 0.6 [facility] , [address] [place] [id number] 0 06/30 CBC w/ auto diff MCV fL 80.0 104.0 87.7 FINAL Torsten Gatito [place] [facility] [place] [facility] , [address] [place] [id number] 0 06/30 CBC w/ auto diff IG # K/uL 0.0 0.03 0.03 FINAL Torsten Gatito [place] [facility] [place] [facility] , [address] [place] [id number] 0 06/30 CBC w/ auto diff MO % % 6.0 15.0 7.4 FINAL Torsten Gatito [place] [facility] [place] [facility] , [address] [place] [phone] 0 06/30 CBC w/ auto diff EO # K/uL 0.0 0.6 0.1 FINAL Torsten Gatito [place] [facility] [place] [facility] , [address] [place] [id number] 0 06/30 CBC w/ auto diff EO % % 0.0 7.0 1.4 FINAL Torsten Gatito [place] [facility] [place] [facility] , [address] [place] [id number] 0 06/30 CBC w/ auto diff RBC M/uL 3.9 5.1 4.39 FINAL Torsten Gatito [place] [facility] [place] [facility] , [address] [place] [id number] 0 06/30 CBC w/ auto diff MPV fL 9.5 13.4 9.3 Low FINAL Torsten Gatito [place] [facility] [place] [facility] , [address] [place] [id number] 0 06/30 CBC w/ auto diff BA % % 0.0 2.0 0.4 FINAL Torsten Mederos [place] [facility] [place] [facility] , [address] [place] [phone] 0 06/30 CBC w/ auto diff BA # K/uL 0.0 0.2 0.0 FINAL Torsten Gatito [place] [facility] [place] [facility] , [address] [place] [id number] 0 06/30 CBC w/ auto diff HGB g/dL 11.3 15.2 12.2 FINAL Torsten Mederos [place] [facility] [place] [facility] , [address] [place] [id number] 0 06/30 CBC w/ auto diff MCHC g/dL 30.0 35.0 31.7 FINAL Torsten Gatito [place] [facility] [place] [facility] , [address] [place] [id number] 0 06/30 CBC w/ auto diff HCT % 35.0 48.0 38.5 FINAL Torsten Gatito [place] [facility] [place] [facility] , [address] [place] [id number] 0 06/30 CBC w/ auto diff WBC K/uL 3.0 8.9 7.9 FINAL Torsten Mederos [place] [facility] [place] [facility] , [address] [place] [id number] 0 06/30 CBC w/ auto diff PLT K/uL 113.0 364.0 512 High FINAL Torsten Mederos [place] [facility] [place] [facility] , [address] [place] [id number] 0 06/30 CBC w/ auto diff RDW % 11.4 16.1 13.20 FINAL Torsten Mederos [place] [facility] [place] [facility] , [address] [place] [id number] 0 06/30 CBC w/ auto diff LY % % 14.0 41.0 35.0 FINAL Torsten Gatito [place] [facility] [place] [facility] , [address] [place] [id number] 0 06/30 CBC w/ auto diff LY # K/uL 0.4 3.6 2.8 FINAL Torsten Gatito [place] [facility] [place] [facility] , [address] [place] [id number] 0 06/30 CBC w/ auto diff MCH pg 26.0 35.0 27.8 FINAL Torsten Gatito [place] [facility] [place] [facility] , [address] [place] [phone] 0 06/30 CBC w/ auto diff NRBC % #/100W BC 0.0 0.2 0.0 FINAL Torsten Gatito [place] [facility] [place] [facility] , [address] [place] [id number] 0 06/30 CBC w/ auto diff Patricia % % 43.0 74.0 55.4 FINAL Torsten Gatito [place] [facility] [place] [facility] , [address] [place] [phone] 0 06/30 CMP ALT/S GPT U/L 0.0 34.0 32 FINAL Torsten Mederos * [place] [facility] , [address] [facility] [id number] 0 06/30 CMP Gluco se mg/dL 74.0 100.0 74 FINAL Torsten Mederos * [facility] , [address] [facility] [id number] 0 06/30 CMP Total prote in g/dL 6.3 8.2 6.7 FINAL Torsten Mederos * [facility] , [facility] [address] [id number] 0 06/30 CMP AST/S GOT U/L 14.0 36.0 62 High FINAL Torsten Mederos * [facility] , [facility] [address] [id number] 0 06/30 CMP Bilir ubin, total mg/dL 0.2 1.3 0.2 FINAL Torsten Mederos * [facility] , [facility] [address] [id number] 0 06/30 CMP Sodiu m mmol/L 137.0 145.0 137 FINAL Torsten Mederos * [facility] , [facility] [address] [id number] 0 06/30 CMP Alkal ine phosp hatas e U/L 36.0 125.0 60 FINAL Torsten Mederos * [facility] , [facility] [address] [id number] 0 06/30 CMP Calci um mg/dL 8.4 10.2 8.7 FINAL Torsten Mederos * [facility] , [facility] [address] [id number] 0 06/30 CMP GFR estim ate ml/min /1.73m ^2 94.3 GFR is calculate d using the CKD-EPI equation. FINAL Torsten Mederos * [facility] , [facility] [address] [id number] 0 06/30 CMP CO2 mmol/L 22.0 30.0 26 The expected total allowable error for CO2 is 5.6%. We have seen up to 10% differenc e in values if reported at the end of the 96 hour stability window. Please consider the clinical significa nce of a 2.0-2.5 mmol/L lower reported CO2 value if reported at the end of the 96 hour stability window. FINAL Torsten Mederos * [facility] , [address] [facility] [address] [facility] [id number] 0 06/30 CMP Chlor simone mmol/L 96.0 107.0 104 FINAL Torsten Mederos * [facility] , [address] [facility] [address] [facility] [id number] 0 06/30 CMP BUN mg/dL 7.0 17.0 8.0 FINAL Torsten Mederos * [facility] , [facility] [address] [facility] [id number] 0 06/30 CMP Creat inine mg/dL 0.66 1.25 0.80 FINAL Torsten Mederos * [facility] , [address] [facility] [address] [facility] [id number] 0 06/30 CMP Album in g/dL 3.5 5.0 3.8 FINAL Torsten Mederos * [facility] , [address] [facility] [address] [facility] [id number] 0 06/30 CMP Potas sium mmol/L 3.5 5.1 4.1 FINAL Torsten Mederos * [facility] , [address] [facility] [id number] 0 06/30 Lupus antic oagul ant panel DRVVT SCREE N sec 40 FINAL Torsten Mederos * [facility] [address] [place] [id number] 4 06/30 Lupus antic oagul ant panel PTT-L A SCREE N sec 32 FINAL Torsten Ng [facility] [address] [facility] [id number] 4 06/30 Lupus antic oagul ant panel LUPUS ANTIC OAGUL ANT SEE NOTE A Lupus Anticoagu lant is not detected. For more informati on on this test, go to:http:/ /educatio PlumTV/faq/ [email or web address](T his link is being provided for informati onal/educ ational purposes only.)--- --------- --------- --------- --------- --------- --------T his interpret ation is based on thefollow ing test results: FINAL Torsten Gatito HINOJOSAoLyfet [employer] [address] [facility] [id number] 4 06/30 Prote in S activ ity panel PROTE IN S, ACTIV ITY %ellie l 60.0 140.0 95 Decreased levels of Protein S activity may be found inpatient s with hereditar y deficienc y, warfarin therapy,v itamin k deficienc y, liver disease, DIC, or recentthr ombosis as well as after surgery. In addition, it may bephysiol ogic in . An elevated Protein S activity isnot clinicall y significa nt. Only deficienc ies are associate dwith an increased thromboti c risk. FINAL Torsten Gatito HINOJOSA [employer] [facility] [address] [facility] [id number] 4 06/30 Antit hromb in III activ ity panel ANTIT HROMB IN III ACTIV ITY %ellie l 80.0 135.0 71 Low The major different ial diagnosis of a hereditar y ATIIIdefi ciency includes consumpti on (i.e. recent thrombosi s orDIC), heparin therapy, L-asparag inase treatment , liverdise ase, and nephrotic range proteinur ia.An elevated ATIII Activity is not clinicall y significa nt.Only deficienc ies are associate d with an increased thromboti c risk. FINAL [facility] Mederos * [facility] [address] [place] [id number] 4 07/10 PT INR panel INR 0.8 1.2 1.2 In patients with lupus anticoagu lant or other anti-phos pholipid antibodie s, theINR may be falsely elevated. For such patients, it is generally preferabl e tomonitor chromogen ic factor X activity, which is not affected by theseanti bodies.Th is test should not be performed on patients with hematocri t <20% or >55% FINAL [facility] Gatito 07/10 PT INR panel PT INR lab resul t note This specime n was collect ed shelly rojas. FINAL [facility] , [address] [facility] [id number] 0 07/31 [facility] other lab See air brake adjuster roque 06/30 CARDI OLIPI N AB (IGM) MPL-U/ mL <2.0 Value Interpret ation---- - --------- -----< 20.0 Antibody not detected> or = 20.0 Antibody detectedT he antiphosp holipid antibody syndrome (APS) is aclinical -patholog ic correlati on that includes aclinical event (e.g. arterial or venous thrombosi s,pregnan cy morbidity ) and persisten t positivea ntiphosph olipid antibodie s (IgM, IgG Cardiolip in [id number] antibodie s greater than the 99th percentil e; ora lupus anticoagu lant). Internati onal consensus guideline s for APS suggest waiting at least 12 weeksbefo re retesting to confirm antibody persisten ce.The Systemic Lupus Internati onal Collabora Thai cs immunolog ical classific ation criteria forsystem ic lupus erythemat osus (SLE) include testing forisotyp e IgA, which has yet to be incorpora aries intoAPS criteria. Low level antiphosp holipid antibodie smay sometimes be detected in the setting of infection ,drug therapy or aging.For additiona l informati on, please refer tohttp:// Kiind.me .Fuel (fuelpowered.com)/faq/F AQ109(Thi s link is being provided for informati onal/educ ational purposes only.) FINAL Torsten Ng [employer], [employer] [facility] [address] [facility] [id number] 4 06/30 CARDI OLIPI N AB (IGG) GPL-U/ mL <2.0 Value Interpret ation---- - --------- -----< 20.0 Antibody not detected> or = 20.0 Antibody detected FINAL Torsten Ng [employer] [facility] [facility] [address] [facility] [id number] 4 06/30 Beta 2 glyco prote in 1 abs (IgG, IgM) B2 GLYCO PROTE IN I (IGA) AB U/mL <2.0 Value Interpret ation---- - --------- -----< 20.0 Antibody not detected> or = 20.0 Antibody detectedT he antiphosp holipid antibody syndrome (APS) is aclinical -patholog ic correlati on that includes aclinical event (e.g. arterial or venous thrombosi s,pregnan cy morbidity ) and persisten t positivea ntiphosph olipid antibodie s (IgM, IgG Cardiolip in [id number] antibodie s greater than the 99th percentil e; ora lupus anticoagu lant). Internati onal consensus guideline s for APS suggest waiting at least 12 weeksbefo re retesting to confirm antibody persisten ce.The Systemic Lupus Internati onal Collabora Thai cs immunolog ical classific ation criteria forsystem ic lupus erythemat osus (SLE) include testing forisotyp e IgA, which has yet to be incorpora aries intoAPS criteria. Low level antiphosp holipid antibodie smay sometimes be detected in the setting of infection ,drug therapy or aging.For additiona l informati on, please refer tohttp:// [facility]/faq/F AQ109(Thi s link is being provided for informati onal/educ ational purposes only.) FINAL Torsten Mederos * [facility], [facility] [address] [facility] [id number] 4 06/30 Beta 2 glyco prote in 1 abs (IgG, IgM) B2 GLYCO PROTE IN I (IGM) AB U/mL <2.0 Value Interpret ation---- - --------- -----< 20.0 Antibody not detected> or = 20.0 Antibody detectedT he antiphosp holipid antibody syndrome (APS) is aclinical -patholog ic correlati on that includes aclinical event (e.g. arterial or venous thrombosi s,pregnan cy morbidity ) and persisten t positivea ntiphosph olipid antibodie s (IgM, IgG Cardiolip in [id number] antibodie s greater than the 99th percentil e; ora lupus anticoagu lant). Internati onal consensus guideline s for APS suggest waiting at least 12 weeksbefo re retesting to confirm antibody persisten ce.The Systemic Lupus Internati onal Collabora Thai cs immunolog ical classific ation criteria forsystem ic lupus erythemat osus (SLE) include testing forisotyp e IgA, which has yet to be incorpora aries intoAPS criteria. Low level antiphosp holipid antibodie smay sometimes be detected in the setting of infection ,drug therapy or aging.For additiona l informati on, please refer tohttp:// [facility]/faq/F AQ109(Thi s link is being provided for informati onal/educ ational purposes only.) FINAL Torsten Mederos * [facility], [facility] [address] [place] [id number] 4 06/30 Beta 2 glyco prote in 1 abs (IgG, IgM) B2 GLYCO PROTE IN I (IGG) AB U/mL <2.0 Value Interpret ation---- - --------- -----< 20.0 Antibody not detected> or = 20.0 Antibody detectedT he antiphosp holipid antibody syndrome (APS) is aclinical -patholog ic correlati on that includes aclinical event (e.g. arterial or venous thrombosi s,pregnan cy morbidity ) and persisten t positivea ntiphosph olipid antibodie s (IgM, IgG Cardiolip in [id number] antibodie s greater than the 99th percentil e; ora lupus anticoagu lant). Internati onal consensus guideline s for APS suggest waiting at least 12 weeksbefo re retesting to confirm antibody persisten ce.The Systemic Lupus Internati onal Collabora Thai cs immunolog ical classific ation criteria forsystem ic lupus erythemat osus (SLE) include testing forisotyp e IgA, which has yet to be incorpora aries intoAPS criteria. Low level antiphosp holipid antibodie smay sometimes be detected in the setting of infection ,drug therapy or aging.For additiona l informati on, please refer tohttp:// education .Fuel (fuelpowered.com)/faq/F AQ109(Thi s link is being provided for informati onal/educ ational purposes only.) FINAL Torsten Mederos * [facility] [address] [facility] [id number] 4 06/30 Prote in C activ ity panel PROTE IN C, ACTIV ITY %ellie l 70.0 180.0 134 Decreased levels of protein C activity may be found inheredit raphael deficienc y, treatment with oral anticoagu lants,ashu er disease, D.I.C. and post surgery. An elevated proteinC activity is not clinicall y significa nt. Only deficienc iesare associate d with an increased thromboti c risk. However,a nti-throm bin or oral anti-Xa medicatio ns may cause falseelev ations. FINAL Torsten Gatito * [facility] [address] [facility] [id number] 4 Medications Date Name Route Dose Frequency Instructions Start Date End Date Status Fill Status Indication 06/30 Multivi tamins Oral Tablet QD active 06/30 Ondanse kate Oral PRN Dose unknown active 06/30 Apixaba n Oral BID stopped 06/30 Albuter ol HFA Inhaler 90 mcg/act uation PRN active 06/30 Fluoxet ine Oral QD active 06/30 Mometas one-For moterol HFA Inhaler 200 mcg-5 mcg/act uation BID active 06/30 Miscell aneous Drug QD Synbiotic active 07/20 warfari n sodium 5 MG Oral Tablet 2024 active Pulmonary embolism (disorder) 06/30 warfari n sodium 5 MG Oral Tablet orally 1.0 tablet daily 2024 active Pulmonary embolism (disorder) Problems Diagnosis Status Date of Diagnosis Resolution Date Lupus anticoagulant disorder (disorder) Active DVT - Deep vein thrombosis Active Pulmonary embolism (disorder) Active Antiphospholipid syndrome (disorder) Active Procedures Date Category Name Instructions Status 07/06/2025 Physician Order Chart check Ordered 09/30/2025 Physician Order RTC MD Ordered Social History Date Name Value 06/30/2025 Smoking Status Never smoker 07/31/2025 Sex Female Gender Identity Identifies as fe male Visits Date Type Value 09/28/2025 LAB 15 MIN 09/28/2025 OV 20 MIN 08/29/2025 LAB 15 MIN Vital Signs Date Type Value 06/30/2025 Body Temperature 97.10 06/30/2025 Heart Beat 77.00 06/30/2025 Respiratory Rate 16.00 06/30/2025 Oxygen Saturation 100.00 06/30/2025 BSA 2.12 06/30/2025 Pain Scale 0.00 06/30/2025 Weight 220.40 06/30/2025 Height 67.50 06/30/2025 BMI 34.01 06/30/2025 Intravascular Systolic 120 06/30/2025 Intravascular Diastolic 82 Notes Section * Med Onc Consult Patient Name:?SHANELL MENDEZ Date of :?1985 Date of Service:?06/30/2025 Attending Physician:?Torsten Mederos (Medical Oncology) Referring Physician: Telma You MD INITIAL HEMATOLOGY/MEDICAL ONCOLOGY CONSULTATION Reason for Visit* DVT?left leg.?Left proximal femoral vein.?05/23/2025 * Bilateral pulmonary embolism with acute cor pulmonale.? * Suspected?antiphospholipid syndrome.? Assessment* Patient is a very pleasant 39-year-old lady referred by?Dr. You,?for a hematology consult due to recent history of DVT bilateral pulmonary embolism.? * Patient reported that she?has a Mirena coil?for history?of menorrhagia for?few years.?In February/March 2025 she was started on oral?contraceptive pills in addition in form of Vidya, and Progestin.? * May 14, 2025 patient woke up in the middle of night with pain in her left calf?she describes that pain as a charley horse. * May 18, 2025 patient presented to?urgent care with complaints of chest?tightness and heaviness.?The symptoms were attributed to asthma?patient was treated with a course of steroids.?Patient describes her symptoms as chest tightness?cough.? * 05/23/2025:?Patient was?at a car dealership when she?felt chest tightness and passed out.?EMT brought her?to the local ER in [facility]Ultrasound Doppler showed nonocclusive DVT in the left proximal femoral vein?there was additional DVT in one of the left peroneal vein?negative for DVT in right lower extremity.?CT pulmonary angiogram showed:?Acute bilateral pulmonary embolism with prominent embolic burden. No focal lung infarction, infiltrate or pleural effusion. No pneumothorax.?Enlarged pulmonary artery consistent with pulmonary artery hypertension. No sign of aneurysm or dissection in the thoracic aorta.? * Patient was transferred to [facility] via medevac helicopter?she required pressors on her way there due to hypotension.?She was admitted to ICU.?Patient was administered tPA.?Her echocardiogram showed severe RV dilatation moderate RV dysfunction.?Vascular surgery was consulted?patient was intubated and?cannulated for [facility].? * 05/28/2025 patient was discharged from hospital.?During the ICU patient had gradually improving respiratory status.?She was weaned off IV heparin?and switched to?apixaban?10 mg twice daily?with plan to step down to 5 mg twice daily.? * As per hospital records?patient Antithrombin III protein C S and beta-2 glycoprotein were normal.?Factor II and factor V Leiden gene mutations results were pending.?However review ofrecords available show factor II and factor V Leiden were checked and were negative?patient's cardiolipin antibody was?borderline positive lupus anticoagulant was detected.? * Patient now on apixaban 5 mg twice daily which she is tolerating well?her breathing has improved. She denies any pain in her left leg.? Plan* I reviewed patient's hospital records she has a?episode of?life- threatening massive venous thromboembolic episode.?Patient was ambulatory?at the time of this incidence and her only?risk factor was oral contraceptive pills.? * I recommended we should repeat?and complete her thrombophilia workup. * I explained that?at?patient's cardiolipin antibody was borderline positive and lupus anticoagulant was?detected,?which if confirmed would confirm the diagnosis of antiphospholipid?syndrome. * I recommended we repeat some of these tests for a new baseline. * I also recommended that patient should switch to warfarin?due to possible concern of antiphospholipid syndrome.?I advised her to start on warfarin 5 mg daily?she will overlap that with apixaban?we will have her come in next week to check?INR and?chromogenic factor X.?Once therapeutic she can stop?apixaban. * Will plan to repeat?antiphospholipid?syndrome labs in 3 months. * Patient likely will need lifelong anticoagulation.? * Patient has already stopped oral contraceptive pills?I recommend that she discuss with Dr. You?to remove her Mirena coil.?Patient patient may need hysterectomy eventually given history ofendometriosis and?of pelvic symptoms and?menorrhagia.? * Plan follow-up in 3 months?with repeat labs.? Advanced Care Planning Not discussed at this visit. Pain Scale on Today's Visit 0 Pain Plan on Today's Visit No pain plan indicated for today's visit Smoking Status Smoking Status: Smoking Tobacco : Never smoker; Smokeless Tobacco : Never used smokeless tobacco; Vaping : Never vaped History of Present Illness * Patient reported that she?has a Mirena coil?for history?of menorrhagia for?few years.?In February/March 2025 she was started on oral?contraceptive pills in addition in form of Vidya, and Progestin.? * May 14, 2025 patient woke up in the middle of night with pain in her left calf?she describes that pain as a charley horse. * May 18, 2025 patient presented to?urgent care with complaints of chest?tightness and heaviness.?The symptoms were attributed to asthma?patient was treated with a course of steroids.?Patient describes her symptoms as chest tightness?cough.? * 05/23/2025:?Patient was?at a car dealership when she?felt chest tightness and passed out.?EMT brought her?to the local ER in [facility].?Ultrasound Doppler showed nonocclusive DVT in the left proximal femoral vein?there was additional DVT in one of the left peroneal vein?negative for DVT in right lower extremity.?CT pulmonary angiogram showed:?Acute bilateral pulmonary embolism with prominent embolic burden. No focal lung infarction, infiltrate or pleural effusion. No pneumothorax.?Enlarged pulmonary artery consistent with pulmonary artery hypertension. No sign of aneurysm or dissection in the thoracic aorta.? * Patient was transferred to [facility] via medevac helicopter?she required pressors on her way there due to hypotension.?She was admitted to ICU.?Patient was administered tPA.?Her echocardiogram showed severe RV dilatation moderate RV dysfunction.?Vascular surgery was consulted?patient was intubated and?cannulated for [facility] ECMO.? * 05/28/2025 patient was discharged from hospital.?During the ICU patient had gradually improving respiratory status.?She was weaned off IV heparin?and switched to?apixaban?10 mg twice daily?with plan to step down to 5 mg twice daily.? * As per hospital records?patient Antithrombin III protein C S and beta-2 glycoprotein were normal.?Factor II and factor V Leiden gene mutations results were pending.?However review ofrecords available show factor II and factor V Leiden were checked and were negative?patient's cardiolipin antibody was?borderline positive lupus anticoagulant was detected.? * Patient now on apixaban 5 mg twice daily which she is tolerating well?her breathing has improved. She denies any pain in her left leg.? Review of Systems A comprehensive review of systems was performed and the pertinent positives and negatives can be found in the History of Present Illness. Past Medical and Surgical History She does not smoke cigarettes. She uses a Mirena IUD and norethindrone as well as oral contraceptive pills to treat endometriosis. Also past medical history significant for asthma.? Since hospital discharge?admission patient has stopped?eating?oral contraceptive pills shestill has the Mirena coil.? Current Medications Medication List Name Date Albuterol HFA Inhaler 90 mcg/actuation 0 06/30/2025 Eliquis (Apixaban Oral) 06/30/2025 Prozac (Fluoxetine Oral) 06/30/2025 Miscellaneous Drug 06/30/2025 Ondansetron Oral 06/30/2025 Dulera (Mometasone-Formoterol HFA Inhale r 200 mcg-5 mcg/actuation) 06/30/2025 Multivitamins Oral Tablet 06/30/2025 Allergies No known medication allergies Family History Family/Hematologic History: Her sister had 6 miscarriages but no episodes of VTE. Her father and multiple members of his family have had heart attacks. She does not have any children. Patient was one of her cousins was found to have factor V Leiden.? Social History Patient works for a [employer].? She does not smoke Vital Signs Blood pressure: 120/82, Pulse: 77, Temperature: 97.1 F, Respirations: 16, O2 sat: 100%, Pain Scale:0, Height: 67.5 in, Weight: 220.4 lb, BSA: 2.12, BMI: 34.01 kg/m2 Immunizations: Covid-19 vaccine (Moderna) (06/30/2025), Patient declined/rejected Oxygen Sats 100% Performance Status ECOG or Karnofsky ECOG: Not recorded. Karnofsky: Not recorded Physical Exam Pleasant 39-year-old lady appears comfortable no acute distress ECOG performance score 1 HEENT examination normal Lungs clear to auscultation no wheezing or rhonchi Abdomen soft nontender no organomegaly Extremities no edema no tenderness Genetics/Molecular/Biomarkers Lab Results CBC Lab Results 06/30/2025 05/28/2025 05/24/2025 05/23/2025 CBC WBC x 10^3/uL 7.9 RBC x 10^6/uL 4.39 NRBC % /100 wbc 0.0 HGB g/dL 12.2 HCT % 38.5 MCV fL 87.7 MCH pg 27.8 MCHC g/dL 31.7 RDW % 13.20 PLT x 10^3/uL 512 (H) MPV fL 9.3 (L) Patricia % 55.4 LY % 35.0 MO % 7.4 EO % 1.4 IG % 0.4 Patricia # (ANC) x 10^3/uL 4.4 BA % 0.4 MO # x 10^3/uL 0.6 EO # x 10^3/uL 0.1 BA # x 10^3/uL 0.0 IG # x 10^3/uL 0.03 LY # x 10^3/uL 2.8 Surveys/Consents/Other Discussions Thank you for allowing me to see SHANELL MENDEZ in consult. Torsten Mederos MD CC: FAX Telmamikala You MD (Referring) Prieto Hyman MD Electronically signed by Torsten COLVIN 06/30/2025 12:54 CDT
--- NOTE | 2025-08-20 21:19 | ED_ITS ---
HPI - General Adult General Time Seen by Provider: 21:19 Date Seen: 08/20/25 Chief complaint: Shortness of Breath/Dyspnea Stated complaint: Leg cramping and chest tightness Time Seen by Provider: 08/20/25 21:18 Source: patient Mode of arrival: ambulatory Limitations: no limitations History of Present Illness HPI narrative: 40-year-old female who presents today with leg pain and some chest tightness. Patient notes some pain and cramping in the right thigh and left lower leg for the last several days, now also with some chest pain and pain in the back which she takes a big breath. She denies nausea, vomiting, diarrhea, cough. Says she has had fatigue since early May when she had a pulmonary embolism and was on ECMO. She is currently on Coumadin, was on Eliquis but was switched, says her INR has never been therapeutic but she also is not on Lovenox or heparin. Slight runny nose, spouse also has runny nose. Patient also had COVID about a month and a half ago. Related Data Home Medications ?Medication ?Instructions ?Recorded ?Confirmed multivitamin with minerals 1 tab PO ONCE 01/28/2307/24 (Multiple Vitamin-Minerals tablet) levonorgestrel (Mirena) 1 device intrauterine ONCE 1 11/26/23 08/10/25 fluticasone 250 mcg-salmeterol 50 1 ea inhalation BID 05/18/25 08/10/25 mcg/dose blistr powdr for inhalation fluticasone propionate 50 1 - 2 spray intranasal DAILY 05/18/25 08/10/25 mcg/actuation nasal spray,suspension triamcinolone acetonide 0.1 % applic topical BID 05/1808/10/25 topical cream cetirizine 10 mg tablet 10 mg PO QDAY PRN 05/31/25 0 08/10/25 ferrous gluconate 240 mg (27 mg 240 mg PO QDAY 5 08/10/25 iron) tablet warfarin 5 mg tablet 5 mg PO DAILY 07/03/2508/10 Bacillus coagulans 800 million cell PO 08/10/25 cell tablet Previous Rx's ?Medication ?Instructions ?Recorded albuterol sulfate 90 mcg/actuation 2 puff inhalation Q 4-6H PRN 09/26/24 aerosol inhaler shortness of breath or wheez ing 90 days #8.5 grams sumatriptan succinate 100 mg tablet 100 mg PO ONCE #14 tabs 09/26/24 trazodone 50 mg tablet 100 mg (2 x 50 mg) PO QHS 90 days 12/08/24 #180 tabs ondansetron 4 mg disintegrating 4 mg PO Q8H PRN nausea and 04/24/25 tablet vomiting 30 days #30 tabs lorazepam 0.5 mg tablet (Ativan) 0.5 mg PO BID PRN loraine tation #20 05/31/25 tabs fluoxetine 20 mg capsule 40 mg (2 x 20 mg) PO QDAY #9 0 caps 06/05/25 Allergies Allergy/AdvReac Type Severity Reaction Status Date / Time No Known Drug Allergies Allergy Verified 08/20/25 21:37 [facility] Medical History History of DVT (deep vein thrombosis) ?Z86.718 - Personal history of other venous thrombosis and embolism (ICD-10) History of pulmonary embolus (PE) ?Z86.711 - Personal history of pulmonary embolism (ICD-10) Endometriosis ?N80.9 - Endometriosis, unspecified (ICD-10) Heavy menstrual bleeding ?N92.0 - Excessive and frequent menstruation with regular cycle (ICD-10) Abnormal Papanicolaou smear of cervix with positive human papilloma virus (HPV) test ?R87.618 - Other abnormal cytological findings on specimens from cervix uteri (ICD-10) Insomnia ?G47.00 - Insomnia, unspecified (ICD-10) Migraine ?G43.909 - Migraine, unspecified, not intractable, without status migrainosus (ICD-10) Iron deficiency anemia ?D50.9 - Iron deficiency anemia, unspecified (ICD-10) Anxiety ?F41.9 - Anxiety disorder, unspecified (ICD-10) Asthma ?J45.909 - Unspecified asthma, uncomplicated (ICD-10) Surgical History History of colposcopy with cervical biopsy (2022) ?Z98.890 - Other specified postprocedural states (ICD-10) History of loop electrical excision procedure (LEEP) ?Z98.890 - Other specified postprocedural states (ICD-10) H/O wisdom tooth extraction ?K08.409 - Partial loss of teeth, unspecified cause, unspecified class (ICD- 10) H/O foot surgery ?Z98.890 - Other specified postprocedural states (ICD-10) Hx of tonsillectomy ?Z90.89 - Acquired absence of other organs (ICD-10) Gastric bypass status for obesity ?Z98.84 - Bariatric surgery status (ICD-10) History of cholecystectomy ?Z90.49 - Acquired absence of other specified parts of digestive tract (ICD- 10) Family History Mother Stroke Sister Thyroid cancer, medullary carcinoma Father Myocardial infarction Social History What is your current living situation?: I presently have a place to live Problems where you live: no known problems In the past 12 months, utilities in danger of being shut off: no In past 12 months, lack of transportation kept you from medical appts, meetings, work, or getting things needed for daily living: no In the past 12 mos, have been you worried that your food would run out before you had money to buy more?: never true In the past 12 mos, the food you bought just didn't last and you didn't have money to buy more?: never true Smoking Status: Never smoker Do you use any of these nicotine containing products: None How often do you have a drink containing alcohol: monthly or less How many standard drinks containing alcohol do you have on a typical day: 1 or 2 How often do you have six or more drinks on one occasion: Never AUDIT-C Alcohol total score: 1 Non-prescribed substance use: denies use How often does anyone, including family, friends and others, physically hurt you : never How often does anyone, including family, friends and others, insult or talk down to you: never How often does anyone, including family, friends and others, threaten you with harm: never How often does anyone, including family, friends and others, scream or curse at you: never service: No Exam Narrative: Exam Narrative: General: Well-developed and well-nourished, tearful Head: Atraumatic and normocephalic Eyes: Pupils are equal reactive, extraocular motions intact, conjunctiva clear ENT: External nose and ears are normal, posterior pharynx without erythema or exudate Neck: No midline cervical tenderness, full spontaneous range of motion the neck, trachea midline, no adenopathy Heart: Tachycardic but regular Lungs: Clear to auscultation bilaterally without wheezes or crackles Abdomen: Soft, nontender, nondistended with active bowel sounds Musculoskeletal: No tenderness, deformity, left leg slightly increased circumference compared to right Neurologic: Awake, alert, and oriented x3, no gross focal neurologic deficits, cranial nerves intact as tested Psych: Mood and affect are appropriate Skin: No rashes Const: Vital Signs, click to edit/add: Vital Signs - 24 hr 08/20/25 21:30 Pulse Rate [Right Pulse Oximeter] 98 Respiratory Rate 20 Blood Pressure [Le ft Upper Arm] 116/87 Pulse Oximetry 99 Oxygen Delivery Me thod Room Air Course Course ED Course: Reviewed recent hospital admission May 23 when patient was seen with pulmonary embolism and lab cor pulmonale, was on pressors, tPA, and patient was on ECMO at that time. Discharged on Eliquis but has since changed to warfarin. Patient with history of pulmonary embolism with cor pulmonale, treatment with ECMO, now with bilateral leg pain and cramping, left leg swelling, chest pain and shortness of breath. On exam, no hypoxia, she is tachycardic. She is quite anxious as would be expected with her recent medical history. Recently had COVID as well. Lungs are clear. Concern for breakthrough thrombus. Labs and CT PE study ordered along with bilateral lower extremity ultrasound. EKG independently interpreted by me performed at 9:27 p.m. demonstrates normal sinus rhythm rate 82, no acute ischemic changes, normal intervals, normal axis, QTC 450, LA 144. Reevaluation(s) Time of Reevaluation #1: 22:14 Reevaluation #1: CT scan of the chest in the panel interpreted by me negative for acute pulmonary embolism. IMPRESSIONS: 1. No CT evidence of acute pulmonary emboli seen. 2. Mild biventricular cardiomegaly is present. 3. Mild enlargement of the main pulmonary artery is present measuring 3.3 cm in maximal short axis diameter. This may be due to pulmonary hypertension. Time of Reevaluation #2: 23:15 Reevaluation #2: Labs independently interpreted by me with normal CBC, INR 1.26, normal basic panel, normal hepatic panel, negative BNP, negative troponin. Bilateral lower extremity ultrasound is negative for acute findings. No definite etiology for patient's symptoms found today. No evidence for acute coronary syndrome, pulmonary embolism, or pulmonary pathology including infiltrate, effusion, pneumonia. Patient stable for discharge continued outpatient follow-up. Updated patient with findings and plan, she is feeling better. She took some Ativan prior to coming the emergency department which may be contributing to her improved symptoms. Vital Signs Vital signs: Initial Vital Signs Pulse Rate 98 08/20/25 21:30 Respiratory Rate 20 08/20/25 21:30 Respiratory Effort Normal 08/20/25 21:30 Respiratory Depth Normal 08/20/25 21:30 Respiratory Pattern Normal 08/20/25 21:30 Blood Pressure 116/87 08/20/25 21:30 Blood Pressure Mean 96 08/20/25 21:30 Blood Pressure Position Semi-Fowlers 08/20/25 21:30 Pulse Oximetry 99 08/20/25 21:30 Oxygen Delivery Method Room Air 08/20/25 21:30 Vital Signs Pulse Rate 98 08/20/25 21:30 Respiratory Rate 20 08/20/25 21:30 Blood Pressure 116/87 08/20/25 21:30 Pulse Oximetry 99 08/20/25 21:30 Oxygen Delivery Method Room Air 08/20/25 21:30 Pulse Rate 98 08/20/25 21:30 Respiratory Rate 20 08/20/25 21:30 Blood Pressure 116/87 08/20/25 21:30 Pulse Oximetry 99 08/20/25 21:30 Oxygen Delivery Method Room Air 08/20/25 21:30 Medical Decision Making Lab Data Labs: Lab Results 08/20/25 Range/Units 21:45 WBC 8.85 (4.50-11.00) K/uL RBC 4.88 (4.00-5.20) m/uL Hgb 13.1 (12.0-16.0) gm/dL Hct 40.2 (33.0-51.0) % MCV 82 (80-100) fL MCH 27 (26-34) pg MCHC 33 (32-36) gm/dL RDW Coeff of Jeremy 14.2 (11.5-15.5) % Plt Count 422 (140-440) K/uL Neut % (Auto) 50.1 (42.0-72.0) % Lymph % (Auto) 39.0 (20-44) % [place] % (Auto) 7.6 (0.0-11.0) % Eos % (Auto) 2.3 (0.0-7.0) % Baso % (Auto) 0.3 (0.0-3.0) % Neut # (Auto) 4.44 (1.7-7.0) K/uL Lymph # (Auto) 3.45 H (0.90-2.90) K/uL [place] # (Auto) 0.70 (0.00-0.90) K/UL Eos # (Auto) 0.20 (0.00-0.50) K/uL Baso # (Auto) 0.03 (0.00-0.30) K/uL Abs Immat Gran (auto) 0.06 (0.00-0.30) K/uL Imm/Tot Granulo (auto) 0.7 % INR 1.26 H (0.91-1.10) Sodium 137 (135-149) mmol/L Potassium 4.0 (3.6-5.1) mmol/L Chloride 106 (96-114) mmol/L Carbon Dioxide 26 (20-32) mmol/L Anion Gap 5 L (7-15) mEq/L BUN 12 (5-24) mg/dL Creatinine 0.9 (0.5-1.5) mg/dL Estimated Creat Clear 82.14 Estimated GFR 82 ml/min Glucose 96 (60-115) mg/dL Calcium 8.7 (8.4-10.6) mg/dL Total Bilirubin 0.2 (0.1-1.5) mg/dL Direct Bilirubin 0.2 (0.0-0.5) mg/dL AST 35 (12-35) U/L ALT 16 (4-35) U/L Alkaline Phosphatase 51 (40-150) U/L NT-Pro-B Natriuret Pep 44 (See Note) pg/mL Total Protein 6.5 (6.0-8.3) g/dL Albumin 3.7 (3.3-5.0) g/dL POC Troponin I 0.01 (0.01-0.04) ng/ml Discharge Plan Discharge Clinical Impression: Bilateral leg cramps, Dyspnea, Anticoagulated on Coumadin, History of pulmonary embolus (PE) Patient Disposition: Home, Self-Care Condition: Stable Instructions: Dyspnea (ED), Blood Thinners (ED) Additional Instructions: 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 as scheduled Activity Level: Activity as Tolerated Discharge Diet: Regular Prescriptions: No Action cetirizine 10 mg tablet 10 mg PO QDAY PRN ferrous gluconate 240 mg (27 mg iron) tablet 240 mg PO QDAY lorazepam [Ativan] 0.5 mg tablet 0.5 mg PO BID PRN (Reason: agitation) Qty: 20 0RF Bacillus coagulans 800 million cell tablet PO Multiple Vitamin-Minerals Tablet 1 tab PO ONCE albuterol sulfate 90 mcg/actuation HFA aerosol inhaler 2 puff inhalation Q4-6H PRN (Reason: shortness of breath or wheezing) 90 Days Qty: 8.5 3RF sumatriptan succinate 100 mg tablet 100 mg PO ONCE Qty: 14 3RF Mirena 21 mcg/24hr (up to 8 yrs) 52 mg intrauterine device 1 device intrauterine ONCE Rx Instructions: as a single dose fluticasone propion-salmeterol 250-50 mcg/dose blister with device 1 ea inhalation BID triamcinolone acetonide 0.1 % cream topical BID fluticasone propionate 50 mcg/actuation spray,suspension 1 - 2 spray intranasal DAILY warfarin 5 mg tablet 5 mg PO DAILY trazodone 50 mg tablet 100 mg PO QHS 90 Days Qty: 180 3RF ondansetron 4 mg tablet,disintegrating 4 mg PO Q8H PRN (Reason: nausea and vomiting) 30 Days Qty: 30 3RF fluoxetine 20 mg capsule 40 mg PO QDAY Qty: 90 3RF Follow Up/Referrals: Prieto Hyman MD [Primary Care Provider, Internal Medicine] Stand Alone Forms: [employer] Info Instructions
[2025-08-20 21:30] VITALS: BP 116/87; PULSE 98; RESP 20; O2SAT 99; BMI 32.5
--- NOTE | 2025-08-20 21:34 | CRLHL7_ITS ---
For Patients: As a result of the Century Cures Act, medical imaging exams and procedure reports are released immediately into your electronic medical record. You may view this report before your referring provider. If you have questions, please contact your health care provider. INDICATION: Bilateral lower extremity pain and cramping, history deep venous thrombosis TECHNIQUE: Ultrasound venous duplex bilateral lower extremities. Real-time leal-scale (B mode 2D), color Doppler, and spectral Doppler imaging were performed with compression and augmentation. COMPARISON: None FINDINGS: Deep vein: The bilateral common femoral, femoral, popliteal, and visualized calf veins are fully compressible, demonstrate normal color flow, and normal response to mechanical augmentation. The Duplex Doppler waveforms are normal in appearance. Superficial vein: The visualized greater saphenous and superficial veins of the leg and calf are unremarkable. Soft tissue: No masses or cysts are identified. No adenopathy is seen. IMPRESSION: 1. No sonographic evidence of acute deep venous thrombosis seen in either lower extremities. Dictated by: Yvon Bay MD @ 08/20/2025 22:42:26 (Electronically Signed)
--- NOTE | 2025-08-20 21:35 | CRLHL7_ITS ---
For Patients: As a result of the Century Cures Act, medical imaging exams and procedure reports are released immediately into your electronic medical record. You may view this report before your referring provider. If you have questions, please contact your health care provider. INDICATION: Chest pain, dyspnea, history of pulmonary embolism TECHNIQUE: CT chest with i.v. contrast using pulmonary angiographic technique. MIPS, coronal and sagittal reformats were obtained. CONTRAST: 95 mL Isovue 370 COMPARISON: None FINDINGS: Cardiovascular: Mild enlargement of the main pulmonary artery is present measuring 3.3 cm in maximal short axis diameter. The pulmonary arteries are unremarkable in enhancement with no evidence of acute pulmonary embolism. Mild biventricular cardiomegaly is present. Ectasia of the ascending aorta is noted measuring 3.9 cm in maximal short axis diameter. Mediastinum: No mass or adenopathy seen. Lung: Both lungs are unremarkable in appearance. Pleura and pericardium: No sign of pleural effusion seen. No significant pericardial effusion is present. Chest wall and axilla: No mass or adenopathy seen. Bone: Unremarkable for age. Upper abdomen: Previous cholecystectomy noted with no significant intra- or extrahepatic biliary ductal dilatation seen. IMPRESSIONS: 1. No CT evidence of acute pulmonary emboli seen. 2. Mild biventricular cardiomegaly is present. 3. Mild enlargement of the main pulmonary artery is present measuring 3.3 cm in maximal short axis diameter. This may be due to pulmonary hypertension. Dictated by Yvon Bay MD @ 08/20/2025 10:09:28 PM Please note that all CT scans at this facility use dose modulation, iterative reconstruction, and/or weight-based dosing when appropriate to reduce radiation dose to as low as reasonably achievable. Dictated by: Yvon Bay MD @ 08/20/2025 22:09:37 (Electronically Signed)
[2025-08-20 21:53] LABS: Hematocrit* 40.2 % (33.0-51.0); Hemoglobin* 13.1 gm/dL (12.0-16.0); Immature Granulocytes Abs Auto 0.06 K/uL (0.00-0.30); Immature Granulocytes Pct Auto 0.7 %; Lymphocytes Absolute Auto 3.45 K/uL (0.90-2.90); Mean Corpuscular HGB Conc 33 gm/dL (32-36); Mean Corpuscular Hemoglobin 27 pg (26-34); Mean Corpuscular Volume 82 fL (80-100); RDW Coefficient of Variation % 14.2 % (11.5-15.5); Red Blood Count* 4.88 m/uL (4.00-5.20); White Blood Count* 8.85 K/uL (4.50-11.00)
[2025-08-20 21:56] LABS: Slide Review Reflex No
[2025-08-20 22:08] LABS: INR 1.26 (0.91-1.10); Prothrombin Time 16.7 Seconds
[2025-08-20 22:16] LABS: Albumin* 3.7 g/dL (3.3-5.0); Chloride* 106 mmol/L (96-114)
[2025-08-20 22:17] LABS: Potassium* 4.0 mmol/L (3.6-5.1); Sodium* 137 mmol/L (135-149)
[2025-08-20 22:19] LABS: Alanine Aminotransferase* 16 U/L (4-35); Anion Gap 5 mEq/L (7-15); Aspartate Amino Transferase* 35 U/L (12-35); Blood Urea Nitrogen* 12 mg/dL (5-24); Carbon Dioxide* 26 mmol/L (20-32); Creatinine* 0.9 mg/dL (0.5-1.5); Est. Creatinine Clearance* 82.14; Estimated Glomerular Filt Rate 82 ml/min
[2025-08-20 22:20] LABS: Alkaline Phosphatase* 51 U/L (40-150); Bilirubin Direct* 0.2 mg/dL (0.0-0.5); Bilirubin Total* 0.2 mg/dL (0.1-1.5); Calcium* 8.7 mg/dL (8.4-10.6); Glucose* 96 mg/dL (60-115); Total Protein* 6.5 g/dL (6.0-8.3)
--- OUTSIDE RECORDS SUMMARY | 2025-08-20 22:24 | XMS_ITS ---
Author Name Interface, [id number] lity Address [address] [facility] [address] [address] [facility] Oncology Address [address] [facility] [address] [place] [address] Allergies and Adverse Reactions Medication/Group Name Reaction Severity Date No known allergies Plan Date Type Value 09/28/2025 APPOINTMENT OV [...] Visit LAB 15 MIN Encounters Date Name 06/30/2025 Antiphospholipid syn drome (disorder) 06/30/2025 DVT - Deep vein thro mbosis 06/30/2025 Lupus anticoagulant disorder (disorder) 06/30/2025 Pulmonary embolism ( disorder) Immunizations Date Name Route Dose Instructions Refusal Reason Stat us Covid-19 vaccine (Moderna) Patient declined/rejected Not Administered Diagnostic Results Date Type Test Units Lower Limit Upper Limit Result Flag Comments Status Ordered By Specimen Source Lab Address 06/30 CMP Album in g/dL 3.5 5.0 3.8 FINAL Torsten Gatito * [facility] , [address] [place] [address] [place] [address] [id number] 06/30 CMP Alkal ine phosp hatas e U/L 36.0 125.0 60 FINAL Torsten Mederos * [facility] , [facility] [address] [place] [address] [id number] 0 06/30 CMP ALT/S GPT U/L 0.0 34.0 32 FINAL Torsten Mederos * [facility] , [facility] [address] [id number] 0 06/30 CMP AST/S GOT U/L 14.0 36.0 62 High FINAL Torsten Mederos * [facility] , [facility] [address] [id number] 06/30 CMP BUN mg/dL 7.0 17.0 8.0 FINAL Torsten Gatito * [facility] , [address] [place] [address] [address] [id number] 0 06/30 CMP Calci um mg/dL 8.4 10.2 8.7 FINAL Torsten Jain * [facility] , [facility] [address] [id number] 0 06/30 CMP Chlor simone mmol/L 96.0 107.0 104 FINAL Torsten Gatito * [facility] , [facility] [address] [id number] 0 06/30 CMP CO2 mmol/L 22.0 30.0 [...] the 96 hour stability window. FINAL Torsten Gatito * [facility] , [address] [place] [address] [address] [id number] 0 06/30 CMP Creat inine mg/dL 0.66 1.25 0.80 FINAL Torsten Jain * [facility] , [address] [place] [address] [address] [id number] 0 06/30 CMP GFR estim ate ml/min /1.73m ^2 94.3 GFR is calculate d using the CKD-EPI equation. FINAL [facility] Gatito * [facility] , [facility] [address] [id number] 0 06/30 CMP Gluco se mg/dL 74.0 100.0 74 FINAL Torsten Gatito * [facility] , [facility] [address] [id number] 0 06/30 CMP Potas sium mmol/L 3.5 5.1 4.1 FINAL Torsten Gatito * [facility] [place] [facility] , [address] [facility] [id number] 0 06/30 CMP Sodiu m mmol/L 137.0 145.0 137 FINAL Torsten Mederos * [facility] [place] [facility] , [address] [facility] [id number] 0 06/30 CMP Bilir ubin, total mg/dL 0.2 1.3 0.2 FINAL Torsten Mederos * [facility] [place] [facility] , [address] [facility] [id number] 0 06/30 CMP Total prote in g/dL 6.3 8.2 6.7 FINAL Torsten Mederos * [facility] [place] [facility] , [address] [facility] [id number] 0 06/30 CBC w/ auto diff WBC K/uL 3.0 8.9 7.9 FINAL Torsten Gatito [place] [facility] [place] [facility] , [address] [place] [id number] 0 06/30 CBC w/ auto diff HGB g/dL 11.3 15.2 12.2 FINAL Torsten Gatito [place] [facility] [place] [facility] , [address] [place] [id number] 0 06/30 CBC w/ auto diff PLT K/uL 113.0 364.0 512 High FINAL Torsten Mederos [place] [facility] [place] [facility] , [address] [place] [id number] 0 06/30 CBC w/ auto diff Patricia # (ANC) K/uL 1.6 6.6 4.4 FINAL Torsten Mederos [place] [facility] [place] [facility] , [address] [place] [id number] 0 06/30 CBC w/ auto diff Patricia % % 43.0 74.0 55.4 FINAL Torsten Gatito [place] [facility] [place] [facility] , [address] [place] [id number] 0 06/30 CBC w/ auto diff IG % % 0.0 0.5 0.4 FINAL Torsten Gatito [place] [facility] [place] [facility] , [address] [place] [id number] 0 06/30 CBC w/ auto diff IG # K/uL 0.0 0.03 0.03 FINAL Torsten Gatito [place] [facility] [place] [facility] , [address] [place] [id number] 0 06/30 CBC w/ auto diff LY % % 14.0 41.0 35.0 FINAL Torsten Gatito [place] [facility] [place] [facility] , [address] [place] [id number] 0 06/30 CBC w/ auto diff MO % % 6.0 15.0 7.4 FINAL Torsten Gatito [place] [facility] [place] [facility] , [address] [place] [id number] 0 06/30 CBC w/ auto diff EO % % 0.0 7.0 1.4 FINAL Torsten Gatito [place] [facility] [place] [facility] , [address] [place] [id number] 0 06/30 CBC w/ auto diff BA % % 0.0 2.0 0.4 FINAL Torsten Mederos [place] [facility] [place] [facility] , [address] [place] [id number] 0 06/30 CBC w/ auto diff LY # K/uL 0.4 3.6 2.8 FINAL Torsten Mederos [place] [facility] [place] [facility] , [address] [place] [id number] 0 06/30 CBC w/ auto diff MO # K/uL 0.2 1.3 0.6 FINAL Torsten Mederos [place] [facility] [place] [facility] , [address] [place] [id number] 0 06/30 CBC w/ auto diff EO # K/uL 0.0 0.6 0.1 FINAL Torsten Mederos [place] [facility] [place] [facility] , [address] [place] [id number] 0 06/30 CBC w/ auto diff BA # K/uL 0.0 0.2 0.0 FINAL Torsten Mederos [place] [facility] [place] [facility] , [address] [place] [id number] 0 06/30 CBC w/ auto diff NRBC % #/100W BC 0.0 0.2 0.0 FINAL Torsten Mederos [place] [facility] [place] [facility] , [address] [place] [id number] 0 06/30 CBC w/ auto diff RBC M/uL 3.9 5.1 4.39 FINAL Torsten Mederos [place] [facility] [place] [facility] , [address] [place] [id number] 0 06/30 CBC w/ auto diff HCT % 35.0 48.0 38.5 FINAL Torsten Mederos [place] [facility] [place] [facility] , [address] [place] [id number] 0 06/30 CBC w/ auto diff MCV fL 80.0 104.0 87.7 FINAL [facility] , [address] [place] [id number] 0 06/30 CBC w/ auto diff MCH pg 26.0 35.0 27.8 FINAL [facility] , [address] [place] [id number] 0 06/30 CBC w/ auto diff MCHC g/dL 30.0 35.0 31.7 FINAL [facility] [place] [facility] , [address] [place] [id number] 0 06/30 CBC w/ auto diff MPV fL 9.5 13.4 9.3 Low FINAL [facility] , [address] [place] [id number] 0 06/30 CBC w/ auto diff RDW % 11.4 16.1 13.20 FINAL [facility] , [address] [place] [id number] 0 06/30 PT INR panel INR 0.8 1.2 1.2 In patients with lupus anticoagu lant or other anti-phos pholipid antibodie s, theINR may be falsely elevated. For such patients, it is generally preferabl e tomonitor chromogen ic factor X activity, which is not affected by theseanti bodies.Th is test should not be performed on patients with hematocri t <20% or >55% FINAL [facility] 06/30 PT INR panel PT INR lab resul t note This specime n was collect ed shelly rojas. FINAL [facility] , [address] [facility] [place] [id number] 0 06/30 Lupus antic oagul ant panel LUPUS ANTIC OAGUL ANT SEE NOTE A Lupus Anticoagu lant is not detected. For more informati on on this test, go to:http:/ /educatio Optimal Blue/faq/ [email or web address](T his link is being provided for informati onal/educ ational purposes only.)--- --------- --------- --------- --------- --------- --------T his interpret ation is based on thefollow ing test results: FINAL Torsten Jain * [email or web address], [employer] [facility] [address] [place] [id number] 4 06/30 Lupus antic oagul ant panel PTT-L A SCREE N sec 32 FINAL Torsten Mederos * [email or web address], [employer] [facility] [address] [place] [id number] 4 06/30 Lupus antic oagul ant panel DRVVT SCREE N sec 40 FINAL Torsten Viewex, [employer] [facility] [address] [place] [id number] 4 06/30 Prote in C activ ity [...] ns may cause falseelev ations. FINAL Torsten Jain * MICAELA [facility] [address] [facility] [id number] 4 06/30 Beta 2 glyco prote in [...] olipid antibodie s (IgM, IgG Cardiolip in [id number] antibodie s greater than the 99th percentil [...] l informati on, please refer tohttp:// education .Skemaz/faq/F AQ109(Thi s link is being provided for informati onal/educ ational purposes only.) FINAL Torsten Mederos * MICAELA, [facility] [facility] [address] [facility] [id number] 4 06/30 Beta 2 glyco prote in [...] olipid antibodie s (IgM, IgG Cardiolip in [id number] antibodie s greater than the 99th percentil e; ora lupus anticoagu lant). Internati onal consensus guideline s for APS suggest waiting at least 12 weeksbefo re retesting to confirm antibody persisten ce.The Systemic Lupus Internati onal Collabora [facility] immunolog ical classific ation criteria forsystem ic lupus erythemat osus (SLE) include testing forisotyp e IgA, which has yet to be incorpora aries intoAPS criteria. Low level antiphosp holipid antibodie smay sometimes be detected in the setting of infection ,drug therapy or aging.For additiona l informati on, please refer tohttp:// education .Skemaz/faq/F AQ109([facility] s link is being provided for informati onal/educ ational purposes only.) FINAL Torsten Mederos * QUEST, [facility] [address] [facility] [id number] 4 06/30 Beta 2 glyco prote in [...] olipid antibodie s (IgM, IgG Cardiolip in [id number] antibodie s greater than the 99th percentil e; ora lupus anticoagu lant). Internati onal consensus guideline s for APS suggest waiting at least 12 weeksbefo re retesting to confirm antibody persisten ce.The Systemic Lupus Internati onal Collabora [facility] immun[facility] ical classific ation criteria forsystem ic lupus erythemat osus (SLE) include testing forisotyp e IgA, which has yet to be incorpora aries intoAPS criteria. Low level antiphosp holipid antibodie smay sometimes be detected in the setting of infection ,drug therapy or aging.For additiona l informati on, please refer tohttp:// education .Skemaz/faq/F AQ109(Thi s link is being provided for informati onal/educ ational purposes only.) FINAL Torsten Jain * [email or web address], [facility] [address] [facility] [id number] 4 06/30 CARDI OLIPI N AB (IGG) GPL-U/ mL <2.0 Value Interpret ation---- - --------- -----< 20.0 Antibody not detected> or = 20.0 Antibody detected FINAL Torsten Gatito Ng Holla@Me, [facility] [address] [facility] [id number] 4 06/30 CARDI OLIPI N AB (IGM) MPL-U/ mL <2.0 Value Interpret ation---- - --------- -----< 20.0 Antibody not detected> or = 20.0 Antibody detectedT he antiphosp holipid antibody syndrome (APS) is aclinical -patholog ic correlati on that includes aclinical event (e.g. arterial or venous thrombosi s,pregnan cy morbidity ) and persisten t positivea ntiphosph olipid antibodie s (IgM, IgG Cardiolip in [id number] antibodie s greater than the 99th percentil [...] l informati on, please refer tohttp:// education .Skemaz/faq/F AQ109(Veronica s link is being provided for informati onal/educ ational purposes only.) FINAL Torsten Mederos * MICAELA, [employer] [facility] [address] [place] [id number] 4 06/30 Antit hromb in III activ [...] with an increased thromboti c risk. FINAL [facility] Mederos * [email or web address], [employer] [facility] [address] [place] [id number] 4 06/30 Prote in S activ ity [...] an increased thromboti c risk. FINAL Torsten Mederos * [email or web address], [employer] [facility] [address] [place] [id number] 4 06/30 Misc other lab See collar stay fuser tender d 06/30 Misc other lab See collar stay fuser tender d 07/03 Misc other lab See collar stay fuser tender d 07/06 PT INR panel INR 0.8 1.2 1.7 High In patients with lupus anticoagu lant or other anti-phos pholipid antibodie s, theINR may be falsely elevated. For such patients, it is generally preferabl e tomonitor chromogen ic factor X activity, which is not affected by theseanti bodies.Th is test should not be performed on patients with hematocri t <20% or >55% FINAL [facility] 07/06 PT INR panel PT INR lab resul t note This specime n was collect ed periphe rally. FINAL [facility] Gatito [facility] , [address] [facility] [id number] 0 07/06 [facility] other lab See collar stay fuser tender d 07/10 PT INR panel INR 0.8 1.2 1.2 In patients with lupus anticoagu lant or other anti-phos pholipid antibodie s, theINR may be falsely elevated. For such patients, it is generally preferabl e tomonitor chromogen ic factor X activity, which is not affected by theseanti bodies.Th is test should not be performed on patients with hematocri t <20% or >55% FINAL [facility] 07/10 PT INR panel PT INR lab resul t note This specime n was collect ed perip ral. FINAL [facility] Gatito [facility] , [address] [facility] [id number] 0 07/10 [facility] other lab See collar stay fuser tender d 07/17 [facility] other lab See collar stay fuser tender d 07/31 [facility] other lab See collar stay fuser tender d 07/31 [facility] other lab See collar stay fuser tender d Medications Date Name Route Dose Frequency Instructions Start Date End Date Status Fill Status Indication 06/30 Multivi tamins Oral Tablet QD active 06/30 Mometas one-For moterol HFA Inhaler 200 mcg-5 mcg/act uation BID active 06/30 Fluoxet ine Oral QD active 06/30 Ondanse kate Oral PRN Dose unknown active 06/30 Miscell aneous Drug QD Synbiotic active 06/30 Albuter ol HFA Inhaler 90 mcg/act uation PRN active 07/20 warfari n sodium 5 MG Oral Tablet 2024 active Pulmonary embolism (disorder) 06/30 warfari n sodium 5 MG Oral Tablet orally 1.0 tablet daily 2024 active Pulmonary embolism (disorder) Problems Diagnosis Status Date of Diagnosis Resolution Date Lupus anticoagulant disorder (disorder) Active DVT - Deep vein thrombosis Active Pulmonary embolism (disorder) Active Antiphospholipid syndrome (disorder) Active Vital Signs Date Type Value 06/30/2025 Body Temperature 97.10 06/30/2025 Heart Beat 77.00 06/30/2025 Respiratory Rate 16.00 06/30/2025 Oxygen Saturation 100.00 06/30/2025 BSA 2.12 06/30/2025 Pain Scale 0.00 06/30/2025 Weight 220.40 06/30/2025 Height 67.50 06/30/2025 BMI 34.01 06/30/2025 Intravascular Systolic 120 06/30/2025 Intravascular Diastolic 82 Notes Section * Med Onc Consult Patient Name:??SHANELL MENDEZ Date of :??1985 Date of Service:??06/30/2025 Attending Physician:?Torsten Mederos (Medical Oncology) Referring Physician: Telma You MD INITIAL HEMATOLOGY/MEDICAL ONCOLOGY CONSULTATION Reason for Visit* DVT??left leg.?Left proximal femoral vein.?05/23/2025 * Bilateral pulmonary embolism with acute cor pulmonale.?? * Suspected??antiphospholipid syndrome.?? Assessment* Patient is a very pleasant 39-year-old lady referred by??Dr. You,??for a hematology consult due to recent history of DVT bilateral pulmonary embolism.?? * Patient reported that she??has a Mirena coil??for history??of menorrhagia for??few years.?In February/March 2025 she was started on oral??contraceptive pills in addition in form of Vidya, and Progestin.?? * May 14, 2025 patient woke up in the middle of night with pain in her left calf??she describes deedee as a charley horse. * May 18, 2025 patient presented to??urgent care with complaints of chest??tightness and heaviness.?The symptoms were attributed to asthma??patient was treated with a course of steroids.?Patientdescribes her symptoms as chest tightness??cough.?? * 05/23/2025:??Patient was??at a car dealership when she??felt chest tightness and passed out.?EMT brought her??to the local ER in [facility].?Ultrasound Doppler showed nonocclusive DVT in the left proximal femoral vein??there was additional DVT in one of the left peroneal vein??negative for DVT in right lower extremity.?CT pulmonary angiogram showed:??Acute bilateral pulmonary embolism with prominent embolic burden. No focal lung infarction, infiltrate or pleural effusion. No pneumothorax.??Enlarged pulmonary artery consistent with pulmonary artery hypertension. No sign of aneurysm or dissection in the thoracic aorta.?? * Patient was transferred to [facility] via medevac helicopter??she required pressors on her way there due to hypotension.?She was admitted to ICU.?Patient was administered tPA.?Her echocardiogram showed severe RV dilatation moderate RV dysfunction.?Vascular surgery was c onsulted??patient was intubated and??cannulated for [facility].?? * 05/28/2025 patient was discharged from hospital.?During the ICU patient had gradually improving respiratory status.?She was weaned off IV heparin??and switched to??apixaban??10 mg twice daily??with plan to step down to 5 mg twice daily.?? * As per hospital records??patient Antithrombin III protein C S and beta-2 glycoprotein were normal.?Factor II and factor V Leiden gene mutations results were pending.?However review of records available show factor II and factor V Leiden were checked and were negative??patient's cardiolipin ant ibody was??borderline positive lupus anticoagulant was detected.?? * Patient now on apixaban 5 mg twice daily which she is tolerating well??her breathing has improved. She denies any pain in her left leg.?? Plan* I reviewed patient's hospital records she has a??episode of??life- threatening massive venous thromboembolic episode.?Patient was ambulatory??at the time of this incidence and her only??risk factorwas oral contraceptive pills.?? * I recommended we should repeat??and complete her thrombophilia workup. * I explained that??at??patient's cardiolipin antibody was borderline positive and lupus anticoagulant was??detected,??which if confirmed would confirm the diagnosis of antiphospholipid??syndrome. * I recommended we repeat some of these tests for a new baseline. * I also recommended that patient should switch to warfarin??due to possible concern of antiphospholipid syndrome.?I advised her to start on warfarin 5 mg daily??she will overlap that with apixaban??we will have her come in next week to check??INR and??chromogenic factor X.?Once therapeutic shecan stop??apixaban. * Will plan to repeat??antiphospholipid??syndrome labs in 3 months. * Patient likely will need lifelong anticoagulation.?? * Patient has already stopped oral contraceptive pills??I recommend that she discuss with Dr. You??to remove her Mirena coil.?Patient patient may need hysterectomy eventually given history of endometriosis and??of pelvic symptoms and??menorrhagia.?? * Plan follow-up in 3 months??with repeat labs.?? Advanced Care Planning Not discussed at this visit. Pain Scale on Today's Visit 0 Pain Plan on Today's Visit No pain plan indicated for today's visit Smoking Status Smoking Status: Smoking Tobacco : Never smoker; Smokeless Tobacco : Never used smokeless tobacco; Vaping : Never vaped History of Present Illness * Patient reported that she??has a Mirena coil??for history??of menorrhagia for??few years.?In March 2025 she was started on oral??contraceptive pills in addition in form of Vidya, and Progestin.?? * May 14, 2025 patient woke up in the middle of night with pain in her left calf??she describes thatpain as a charley horse. * May 18, 2025 patient presented to??urgent care with complaints of chest??tightness and heaviness.?The symptoms were attributed to asthma??patient was treated with a course of steroids.?Patientdescribes her symptoms as chest tightness??cough.?? * 05/23/2025:??Patient was??at a car dealership when she??felt chest tightness and passed out.?EMT brought her??to the local ER in [facility].?Ultrasound Doppler showed nonocclusive DVT in the left proximal femoral vein??there was additional DVT in one of the left peroneal vein??negative for DVT in right lower extremity.?CT pulmonary angiogram showed:??Acute bilateral pulmonary embolism with prominent embolic burden. No focal lung infarction, infiltrate or pleural effusion. No pneumothorax.??Enlarged pulmonary artery consistent with pulmonary artery hypertension. No sign of aneurysm or dissection in the thoracic aorta.?? * Patient was transferred to [facility] via medevac helicopter??she required pressors on her way there due to hypotension.?She was admitted to ICU.?Patient was administered tPA.?Her echocardiogram showed severe RV dilatation moderate RV dysfunction.?Vascular surgery was c onsulted??patient was intubated and??cannulated for [facility].?? * 05/28/2025 patient was discharged from hospital.?During the ICU patient had gradually improving respiratory status.?She was weaned off IV heparin??and switched to??apixaban??10 mg twice daily??with plan to step down to 5 mg twice daily.?? * As per hospital records??patient Antithrombin III protein C S and beta-2 glycoprotein were normal.?Factor II and factor V Leiden gene mutations results were pending.?However review of records available show factor II and factor V Leiden were checked and were negative??patient's cardiolipin ant ibody was??borderline positive lupus anticoagulant was detected.?? * Patient now on apixaban 5 mg twice daily which she is tolerating well??her breathing has improved. She denies any pain in her left leg.?? Review of Systems A comprehensive review of systems was performed and the pertinent positives and negatives can be found in the History of Present Illness. Past Medical and Surgical History She does not smoke cigarettes. She uses a Mirena IUD and norethindrone as well as oral contraceptive pills to treat endometriosis. Also past medical history significant for asthma.?? Since hospital discharge??admission patient has stopped??eating??oral contraceptive pills she stillhas the Mirena coil.?? Current Medications Medication List Name Date Albuterol [...] cousins was found to have factor V Leiden.?? Social History Patient works for a [employer].?? She does not smoke Vital Signs Blood [...] in consult. Torsten Mederos MD CC: FAX Telma You MD (Referring) Prieto Hyman MD Electronically signed by Torsten COLVIN 06/30/2025 12:54 CDT
--- OUTSIDE RECORDS SUMMARY | 2025-08-20 22:24 | XMS_ITS ---
Author Name Interface, [id number] lity Address [address] [place], [place] [address] [place] [id number] [facility] Address [address] [place], [place] [address] [place] [address] Allergies and Adverse Reactions Plan Reason for Visit Encounters Immunizations Diagnostic Results Medications Problems Vital Signs Notes Section
--- OUTSIDE RECORDS SUMMARY | 2025-08-20 22:25 | XMS_ITS | CCD ---
Author Name Interface, [id number] lity Address [address] [facility] [address] [place] [address] [facility] Address [address] [facility] [address] [place] [address] Care Team Providers Care Senior Project Coordinator Name Role Phone Torsten Morfin Unavailable Unavailable Allergies and Adverse Reactions Care Plan Reason for Visit Encounters Immunizations Diagnostic Results Medications Problems Procedures Social History Visits Vital Signs Notes Section
--- OUTSIDE RECORDS SUMMARY | 2025-08-20 22:25 | XMS_ITS | CCD ---
Author Name Interface, [id number] lity Address [address] [facility] [address] [place] [address] [facility] Address [address] [facility] [address] [place] [address] Care Team Providers Care Brake Operator Helper Name Role Phone Torsten Morfin Unavailable Unavailable Allergies and Adverse Reactions Care Plan Reason for Visit Encounters Immunizations Diagnostic Results Medications Problems Procedures Social History Visits Vital Signs Notes Section
[2025-08-20 22:30] VITALS: BP 117/86; PULSE 79; RESP 20; O2SAT 100
[2025-08-20 22:30] LABS: NT Pro B Type NatriureticPept* 44 pg/mL (See Note)
[2025-08-20 22:36] LABS: Troponin, Point-of-Care* 0.01 ng/ml (0.01-0.04)
[2025-08-20 23:00] VITALS: BP 122/87; PULSE 75; RESP 18; O2SAT 96
[2025-08-20 23:07] VITALS: PULSE 78; RESP 19; O2SAT 96
[2025-08-20 23:15] VITALS: PULSE 80; RESP 17; O2SAT 96
[2025-08-20 23:30] VITALS: BP 122/90; PULSE 77; RESP 18; O2SAT 96
== END 2025-08-20 23:38 | disposition home or self-care (01) ==
PROVIDERS: Emergency Provider Family Medicine; PCP Internal Medicine
DX: R25.2 Cramp and spasm (principal); R06.00 Dyspnea, unspecified; Z86.711 Personal history of pulmonary embolism; Z79.01 Long term (current) use of anticoagulants
CPT/HCPCS: 36415; 71275; 80048; 80076; 83880; 84484; 85025; 85610; 93005; 93970; 99284; 99285; Q9967

== ENCOUNTER 2025-09-07 13:37 | Emergency (ER) | payer OTHER, SELFPAY ==
[2025-09-07] VITALS (28 sets, daily range): BP systolic 112–143; BP diastolic 79–100; PULSE 75–100; RESP 0–31; TEMP 36.4–37.1; O2SAT 96–99; BMI 34.5
--- OUTSIDE RECORDS SUMMARY | 2025-09-07 13:40 | XMS_ITS ---
Author Name Interface, [id number] lity Address [address] [address] Organization [facility] Address [address] [facility] [address] [address] Support Name Relationship Address Phone SHANTE HERNANDEZ Spouse Unknown Unavailable Allergies and Adverse Reactions Medication/Group Name Reaction Severity Date No known allergies Plan Date Type Value 09/28/2025 APPOINTMENT OV 20 MIN 09/28/2025 APPOINTMENT LAB 15 MIN 08/29/2025 APPOINTMENT LAB 15 MIN 08/15/2025 APPOINTMENT LAB 15 MIN 07/10/2025 APPOINTMENT LAB 15 MIN 07/06/2025 APPOINTMENT LAB 15 MIN 06/30/2025 APPOINTMENT LAB 10 MIN 06/30/2025 APPOINTMENT NEW PT CONSULT 6 0 MIN 06/30/2025 LAB_ORDER Antithrombin III activity panel 06/30/2025 LAB_ORDER Beta 2 glycoprot ein 1 abs (IgG, IgM) 06/30/2025 LAB_ORDER Protein C activi ty panel 06/30/2025 LAB_ORDER Protein S activi ty panel 06/30/2025 LAB_ORDER PT INR panel 06/30/2025 LAB_ORDER Cardiolipin Anti bodies (IgG, IgM) 06/30/2025 LAB_ORDER CBC w/ auto diff 06/30/2025 LAB_ORDER Lupus anticoagul ant panel 06/30/2025 LAB_ORDER CMP 06/30/2025 LAB_ORDER Chromogenic Fact or X assay panel 07/06/2025 LAB_ORDER Chromogenic Fact or X assay panel 07/06/2025 LAB_ORDER PT INR panel 07/10/2025 LAB_ORDER PT INR panel 07/10/2025 LAB_ORDER Chromogenic Fact or X assay panel 07/17/2025 LAB_ORDER PT INR panel 07/17/2025 LAB_ORDER Chromogenic Fact or X assay panel 07/28/2025 LAB_ORDER Chromogenic Fact or X assay panel 07/28/2025 LAB_ORDER PT INR panel 08/29/2025 LAB_ORDER Chromogenic Fact or X assay panel 08/29/2025 LAB_ORDER PT INR panel 09/13/2025 LAB_ORDER PT INR panel 09/13/2025 LAB_ORDER Chromogenic Fact or X assay panel 09/28/2025 LAB_ORDER CMP 09/28/2025 LAB_ORDER Lupus anticoagul ant panel 09/28/2025 LAB_ORDER CBC w/ auto diff 09/28/2025 LAB_ORDER Cardiolipin Anti bodies (IgG, IgM) Reason for [...] 3.5 5.0 3.8 FINAL Torsten Mederos * [facility] , [address] [place] [address] [place] [address] [id number] 0 06/30 CMP Alkal ine phosp hatas e U/L 36.0 125.0 60 FINAL Torsten Mederos * [facility] , [facility] [address] [place] [address] [id number] 06/30 CMP ALT/S GPT U/L 0.0 34.0 32 FINAL Torsten Gatito * [facility] , [facility] [address] [place] [address] [id number] 0 06/30 CMP AST/S GOT U/L 14.0 36.0 62 High FINAL Torsten Mederos * [facility] , [address] [place] [address] [address] [id number] 06/30 CMP BUN mg/dL 7.0 17.0 8.0 FINAL Torsten Mederos * [facility] , [facility] [address] [id number] 0 06/30 CMP Calci um mg/dL 8.4 10.2 8.7 FINAL Torsten Mederos * [facility] , [address] [place] [address] [address] [id number] 0 06/30 CMP Chlor simone mmol/L 96.0 107.0 104 FINAL Torsten Mederos * [facility] , [address] [place] [address] [place] [address] [id number] 06/30 CMP CO2 mmol/L 22.0 30.0 [...] hour stability window. FINAL Torsten Mederos * [facility] , [address] [place] [address] [address] [id number] 0 06/30 CMP Creat inine mg/dL 0.66 1.25 0.80 FINAL Torsten Mederos * [facility] , [address] [place] [address] [address] [id number] 0 06/30 CMP GFR estim ate ml/min /1.73m ^2 94.3 GFR is calculate d using the CKD-EPI equation. FINAL Torsten Mederos * [facility] , [address] [place] [address] [address] [id number] 0 06/30 CMP Gluco se mg/dL 74.0 100.0 74 FINAL Torsten Mederos * [facility] , [address] [facility] [id number] 0 06/30 CMP Potas sium mmol/L 3.5 5.1 4.1 FINAL Torsten Mederos * [facility] , [address] [facility] [id number] 0 06/30 CMP Sodiu m mmol/L 137.0 145.0 137 FINAL Torsten Mederos * [facility] , [address] [facility] [id number] 06/30 CMP Bilir ubin, total mg/dL 0.2 1.3 0.2 [facility] * [facility] , [address] [facility] [id number] 06/30 CMP Total prote in g/dL 6.3 8.2 6.7 [facility]AL [facility] * [facility] , [address] [facility] [id number] 0 06/30 PT INR panel INR 0.8 1.2 1.2% In patients with lupus anticoagu lant or other anti-phos pholipid antibodie s, theINR may be falsely elevated. For such patients, it is generally preferabl e tomonitor chromogen ic factor X activity, which is not affected by theseanti bodies.Th is test should not be performed on patients with hematocri t <20% or >55% FINAL [facility] 06/30 PT INR panel PT INR lab resul t note This specime n was collect kelsie rojas. FINAL [facility] , [address] [facility] [id number] 0 06/30 CBC w/ auto diff WBC K/uL 3.0 8.9 7.9 FINAL Torsten Mederos [place] [facility] [place] [facility] , [address] [place] [id number] 0 06/30 CBC w/ auto diff HGB g/dL 11.3 15.2 12.2 FINAL Torsten Mederos [place] [facility] [place] [facility] , [address] [place] [id number] 0 06/30 CBC w/ auto diff PLT K/uL 113.0 364.0 512 High FINAL Torsten Mederos [place] [facility] [place] [facility] , [address] [place] [id number] 0 06/30 CBC w/ auto diff Patricia # (ANC) K/uL 1.6 6.6 4.4 FINAL Torsten Mederos [place] [facility] [place] [facility] , [address] [place] [id number] 0 06/30 CBC w/ auto diff Patricia % % 43.0 74.0 55.4 FINAL Torsten Mederos [place] [facility] [place] [facility] , [address] [place] [id number] 0 06/30 CBC w/ auto diff IG % % 0.0 0.5 0.4 FINAL Torsten Mederos [place] [facility] [place] [facility] , [address] [place] [id number] 0 06/30 CBC w/ auto diff IG # K/uL 0.0 0.03 0.03 FINAL Torsten Mederos [place] [facility] [place] [facility] , [address] [place] [id number] 0 06/30 CBC w/ auto diff LY % % 14.0 41.0 35.0 FINAL Torsten Mederos [place] [facility] [place] [facility] , [address] [place] [id number] 0 06/30 CBC w/ auto diff MO % % 6.0 15.0 7.4 FINAL Torsten Mederos [place] [facility] [place] [facility] , [address] [place] [id number] 0 06/30 CBC w/ auto diff EO % % 0.0 7.0 1.4 FINAL Torsten Mederos [place] [facility] [place] [facility] , [address] [place] [id number] 0 06/30 CBC w/ auto diff BA % % 0.0 2.0 0.4 FINAL Torsten Gatito [place] [facility] [place] [facility] , [address] [place] [id number] 0 06/30 CBC w/ auto diff LY # K/uL 0.4 3.6 2.8 FINAL Torsten Gatito [place] [facility] [place] [facility] , [address] [place] [id number] 0 06/30 CBC w/ auto diff MO # K/uL 0.2 1.3 0.6 FINAL Torsten Gatito [place] [facility] [place] [facility] , [address] [place] [id number] 0 06/30 CBC w/ auto diff EO # K/uL 0.0 0.6 0.1 FINAL Torstne Mederos [place] [facility] [place] [facility] , [address] [place] [id number] 0 06/30 CBC w/ auto diff BA # K/uL 0.0 0.2 0.0 FINAL Torsten Mederos [place] [facility] [place] [facility] , [address] [place] [id number] 0 06/30 CBC w/ auto diff NRBC % #/100W BC 0.0 0.2 0.0 FINAL Torsten Mederos [place] [facility] [place] [facility] , [address] [place] [id number] 0 06/30 CBC w/ auto diff RBC M/uL 3.9 5.1 4.39 FINAL Torsten Mederos [place] [facility] [place] [facility] , [address] [place] [id number] 0 06/30 CBC w/ auto diff HCT % 35.0 48.0 38.5 FINAL Torsten Gatito [place] [facility] [place] [facility] , [address] [place] [id number] 0 06/30 CBC w/ auto diff MCV fL 80.0 104.0 87.7 FINAL Torsten Gatito [place] [facility] [place] [facility] , [address] [place] [id number] 0 06/30 CBC w/ auto diff MCH pg 26.0 35.0 27.8 FINAL Torsten Gatito [place] [facility] [place] [facility] , [address] [place] [id number] 0 06/30 CBC w/ auto diff MCHC g/dL 30.0 35.0 31.7 FINAL Torsten Mederos [place] [facility] [place] [facility] , [address] [place] [id number] 0 06/30 CBC w/ auto diff MPV fL 9.5 13.4 9.3 Low FINAL Torsten Mederos [place] [facility] [place] [facility] , [address] [place] [id number] 0 06/30 CBC w/ auto diff RDW % 11.4 16.1 13.20 FINAL [facility] , [address] [facility] [place] [id number] 0 06/30 Antit hromb in III activ ity [...] with an increased thromboti c risk. FINAL Torsten Ng [employer] [address] [place] [id number] 4 06/30 Lupus antic oagul ant panel LUPUS ANTIC OAGUL ANT SEE NOTE A Lupus Anticoagu lant is not detected. For more informati on on this test, go to:http:/ /educatio nPergunter/faq/ [email or web address](T his link is being provided for informati onal/educ ational purposes only.)--- --------- --------- --------- --------- --------- --------T his interpret ation is based on thefollow ing test results: FINAL Torsten Ng [employer] [address] [place] [id number] 4 06/30 Lupus antic oagul ant panel PTT-L A SCREE N sec 32 FINAL Torsten Ng [employer] [address] [facility] [id number] 4 06/30 Lupus antic oagul ant panel DRVVT SCREE N sec 40 FINAL TorstenJosé Luis Todd [facility] [address] [facility] [id number] 4 06/30 Prote in C activ ity [...] ns may cause falseelev ations. FINAL Torsten José Luis Hurtado [facility] [address] [facility] [id number] 4 06/30 CARDI OLIPI N AB (IGG) GPL-U/ mL <2.0 Value Interpret ation---- - --------- -----< 20.0 Antibody not detected> or = 20.0 Antibody detected FINAL Torsten José Luis Hurtado [facility] [employer] [address] [facility] [id number] 4 06/30 CARDI OLIPI N AB (IGM) MPL-U/ mL <2.0 Value Interpret ation---- - --------- -----< 20.0 Antibody not detected> or = 20.0 Antibody detectedT he antiphosp holipid antibody syndrome (APS) is aclinical -patholog ic correlati on that includes aclinical event (e.g. arterial or venous thrombosi s,pregnan cy morbidity ) and persisten t positivea ntiphosph olipid antibodie s (IgM, IgG Cardiolip in [id number] antibodie s greater than the 99th percentil e; ora lupus anticoagu lant). Internati onal consensus guideline s for APS suggest waiting at least 12 weeksbefo re retesting to confirm antibody persisten ce.The Systemic Lupus Internati onal Collabora [facility] immunolog ical classific ation criteria forsystem ic lupus erythemat osus (SLE) include testing forisotyp e IgA, which has yet to be incorpora aries intoAPS criteria. Low level antiphosp holipid antibodie smay sometimes be detected in the setting of infection ,drug therapy or aging.For additiona l informati on, please refer tohttp:// education .M-DISC/faq/F AQ109(Thi s link is being provided for informati onal/educ ational purposes only.) FINAL Torsten Mederos * [facility] [address] [facility] [id number] 4 06/30 Beta 2 glyco prote in [...] olipid antibodie s (IgM, IgG Cardiolip in [id number] antibodie s greater than the 99th percentil e; ora lupus anticoagu lant). Internati onal consensus guideline s for APS suggest waiting at least 12 weeksbefo re retesting to confirm antibody persisten ce.The Systemic Lupus Internati onal Collabor[facility] immun[facility] ical classific ation criteria forsystem ic lupus erythemat osus (SLE) include testing forisotyp e IgA, which has yet to be incorpora aries intoAPS criteria. Low level antiphosp holipid antibodie smay sometimes be detected in the setting of infection ,drug therapy or aging.For additiona l informati on, please refer tohttp:// education .M-DISC/faq/F AQ109(Thi s link is being provided for informati onal/educ ational purposes only.) FINAL Torsten Mederos * [facility] [address] [facility] [id number] 4 06/30 Beta 2 glyco prote in [...] olipid antibodie s (IgM, IgG Cardiolip in [id number] antibodie s greater than the 99th percentil [...] additiona l informati on, please refer tohttp:// [employer] .M-DISC/faq/F AQ109(Thi s link is being provided for informati onal/educ ational purposes only.) FINAL Torsten Mederos * [facility] [address] [facility] [id number] 4 06/30 Beta 2 glyco prote in [...] olipid antibodie s (IgM, IgG Cardiolip in [id number] antibodie s greater than the 99th percentil [...] l informati on, please refer tohttp:// education .M-DISC/faq/F AQ109([facility] s link is being provided for informati onal/educ ational purposes only.) FINAL Torsten Ng [employer] [employer] [address] [facility] [id number] 4 06/30 Prote in S activ ity [...] thromboti c risk. FINAL Torsten Mederos * [employer] [employer] [address] [facility] [id number] 4 06/30 [facility] lab See transport conductor d 06/30 [facility] other lab See transport conductor d 07/03 [facility] other lab See transport conductor d 07/06 PT INR panel INR 0.8 1.2 1.7% High In patients with lupus anticoagu lant or other anti-phos pholipid antibodie s, theINR may be falsely elevated. For such patients, it is generally preferabl e tomonitor chromogen ic factor X activity, which is not affected by theseanti bodies.Th is test should not be performed on patients with hematocri t <20% or >55% FINAL [facility] 07/06 PT INR panel PT INR lab resul t note This specime n was collect ed periphe rally. FINAL [facility] , [address] [facility] [id number] 0 07/06 [facility] other lab See transport conductor d 07/10 PT INR panel INR 0.8 1.2 1.2% In patients with lupus anticoagu lant or other anti-phos pholipid antibodie s, theINR may be falsely elevated. For such patients, it is generally preferabl e tomonitor chromogen ic factor X activity, which is not affected by theseanti bodies.Th is test should not be performed on patients with hematocri t <20% or >55% FINAL [facility] 07/10 PT INR panel PT INR lab resul t note This specime n was collect ed periphe rally. FINAL [facility] , [address] [facility] [address] [facility] [id number] 0 07/10 [facility] other lab See transport conductor d 07/17 [facility] other lab See transport conductor d 07/31 [facility] other lab See transport conductor d 07/31 [facility] other lab See transport conductor d 08/29 PT INR panel INR 0.8 1.2 1.3% High In patients with lupus anticoagu lant or other anti-phos pholipid antibodie s, theINR may be falsely elevated. For such patients, it is generally preferabl e tomonitor chromogen ic factor X activity, which is not affected by theseanti bodies.Th is test should not be performed on patients with hematocri t <20% or >55% FINAL Torsten Mederos 08/29 PT INR panel PT INR lab resul t note This specime n was collect ed shelly rojas. FINAL [facility]ito [facility] , [address] [facility] [id number] 0 08/29 Misc other lab See attache nevarez Medications Date Name Route Dose Frequency Instructions Start Date End Date Status Fill Status Indication 06/30 Albuter ol HFA Inhaler 90 mcg/act uation PRN active 06/30 Miscell aneous Drug QD Synbiotic active 06/30 Fluoxet ine Oral QD active 06/30 Ondanse kate Oral PRN Dose unknown active 06/30 Mometas one-For moterol HFA Inhaler 200 mcg-5 mcg/act uation BID active 06/30 Multivi tamins Oral Tablet QD active 07/20 warfari n sodium 5 MG [...] 82 Notes Section * Med Onc Consult <html><head></head><body><div style=text-align:center><span style=font- size:9px></span><span style=font-size:12px><span style=font-family:[place],Helvetica,sans-serif><span class=clinicalNote MacroWysiwyg id=[id number] macroname=PracticeLetterhead spa ntype=macro title=#PracticeLetterhead><img src=data:image/png;ba se64,mIGMMd3FLvcACJFJUKcHUkMNUEBXFDJfPWXHBJS2Xo+JOGDLXSVDFROTVI5AQQTTtPPVJq6tVTS NvzyDPATUMXp5S48dAjW pc3CpIrklpHYRWXSLQB18tUVcb5V8GLFpW3moXEHfr72iKRcpDTLGDY2hHBJNBEppHBnxAET8ZrWqbaj jRWPoBx1oYVp8oF6qvWQ 2AFQ8uFtddqe7VSIsFT9zZKnkfdhuCCRxUhIqtJa2vUJ7ha8gOZOtAuOjBU0TPOKcmhFzFp2sFDAtXVA zBcpkVBC6RRB5EJG0HIC xGJPtBoX7AdPvTHXrWvBdSrIfLZOtCWLrIGIqFnZ7axOmFfYZWsP8nFvbuacfAWW2Odv5pUO0Ka03s1s jlsAne1SzDvP5HSyzPOV kWyYnpwToJBC7dwZpvI2looDmXiP4jrHnLgTyn3IqjDK4aU7kOVViOztrLr77oH4lSfH7bSetxmr3vOC 6Jog7sUC1Np4ooj2eCX3 dZI9im70tdCJkFxYyEU4wAHxgaY0sYeOcTVNvtORmXy1mjOBmnK3sbqegDOEsMUurjJFxgDWoAX5xAxY vgH6bnbO6yDsjuD4vqU7 fSKDjrUQpHi3bdbPvOYQgUnRiC71iU4Bij4Ccj3arxP9tQsYsRnT0fViezjo2nWXJST8moLZ8dIjbH13 mIxCrv5LqHkJvdQ15FMG oCC7aZ37mKkNulA0scdE0h8EPdvI4Gon1nVF3Id9ijw8pYI8yGW8qh20wjHVgDqRzSP2vBNmqBQ0QTDT oyCBkGIM6JU22FbNdaD3 bKkSuFZR2q3TAe70qJJUBSH0nEBWCfR56q5Hix3EhYnIiYAOgPMYqyH02n5KnJMAkgK7dQfZzZVD2BHD emKX1ExRqIiUtJWCcIte UDQH8Bgd5SlNsEEZ2OSPoKBnspRnOg5GbKfqWEYIzKRYgGPXpRAGtKPH6WYXuWzTsTLG1IyPuWnE6vFJ 1IDP6BEIagWAEEKHwHSQ nEUZrDESoFTI0LRGgAlTrQHP0SfLrKnOoNzgmj6CqRLS8DvnsTEvvA0NwKvEodIivcI7pbK1zDsHbeB4 hLQ7uHM1iLrQpeN5aBS8 7TC8chWGgP4YGCL5qlC5qXksyFAk1FCGuQlXdIU6rGPHeTEO9DstcPWs1IS26AfV4EMOvOdRqGQOqUTs rwN0HYeDkR9ZtST22YTB 2CdeteK9cjWK9PWLrWyLzOHFsFkqaMk25EQM6KOt3RzynOGOtLfGkH7R9APEhWhL5lADBONcSkaxgsC9 sqWKwK0NtAP53ROO7Sys hpC0lsZV8ZIWaIpAbDMZvYkdhDy49BHB5TBg6EepySSQjWzCcV5O5KCCaDh8nARHka5Auh5frhTaPw7R 8lEUjeUDxM4MghE4ypk6 gPHJkZjpCYWc+JCqkAOL9qXx+mG7oGeYuGCx8UkN5E8Q8FTZkGNArSSS4BEQiPwaWLLG6TlUYXcXaUKl whmCmVlqiFjP5F5QaZaf CYWc+DSvnyNaobB2nxN8aPaJnL3PcSO52XX2wRSW6g8FbYqH8pW8eCV73QEvxxM9lgV0pXQUwSmfQFRX +KDnoBOI4uLalk5RRmpY 2ZKQ4cD2iDQNfbdTjtDBqAhIpjEH5nAdipbM1ZJ2fTOpZBJX1mRRcrEmqCalaLaHkEIZ2KXS5XELjPXK jAV89HOy6WLXfDLndXBJ dTBC4PnGdh9AAesY9y8qwit0yWeTyUo0nKQ4sN1QeJQoiQAdhMA7tEevaMZLve3PAzsU9b37dqSlyvlH JK4SiuN3wOFShAkBiBLj fdO6jwN5rUEXbOzZfQJ4uQ2ureZ3kkNrlAu7hGH8aQHX8Q1JmShC4Q3wisV2ZVvubo8Tdbwm+IDwvcmR oZoOrl5NnzDO3zW5bJdP 5X5EyJmeCZPL+BYwkaRy7qTScUQWuMhR0K2heAXPyKNGyHZ9eHZImIk4+nnU8UMONNsCHFIVPyLvywQB gFEcXwN/K+rG6cUW8FAM obsWDOx/eNGCifZnqCKKfKvsekg9BYIcjMMAdOMssN3ow/LC2yy3IxpkxTgLLagD/xs38v93Mre0+nXn zZpZgWRYwGAymNEAghEq 0LZqGPpYzcPMhLEfYeOVYwUCaUWqwQWikEWLNxkPDQ4EAtVffkoVcZTADwYEwKAiyqX4tVtD+Q1RMwSn /koqYrHkQ0nMMalGEz2m GUN6fub72QDugxTWLs/pqbH0bRQ0SQfPi5ktQSx0m4wo6QGRsCSITIjYFtsZqppQSda1w/zBpUmBgYEm WSLK1tUkW24s4u+futCm SA7Z7BAx9EgLR3sGVnz7IBBTkOPYCjZeQbRjX0xcFJkivSrd3jKCGWryx2oUUPAmgQy0G50CRZn11N9D DxkaHsp9d67lxWbMvfjT J7uPLNTWNSv0YSvXaGPjWoWMTw+LEEumob7+Z+pQVYN0aEVaHPejAj5Bj+bEpN5Xle6COv5oh+8ef/Kr M2FhLpUZiocKQRFYbIED NEVMcdma39/oLf/5BkMSEiRPH//ZDfOVqT1wTFqumsat+9bpXj+7qsRdyFi7g49M5SzLQ91TLSDPWkNu hPPb4wIqFATg4qjR1tV5 1xm5SqwG1N5UEL/OmqJwl21//O69rRFfIrK6W8ntJhpXfzdzQMZArp8bpku74ardJQz440jE/v/9nKSz xgiTRJFdqHKQzMN3Lry3 wZNq1deXfgCkcaw7zdrKvuO+/v7//iJCrhe8iZK+48+bYz9yay8RHtgq3zDoxF+zetnvJnEaNm/yybGl wNvJGabavGvnDJYQvl5m SaV8OEpB2/GOBYc9N+g6E52MPJkOlJybPg1OPa9hizgH9QrYWEOZEUKHSYGDzKCSWPFoeYOe8CStIJks VWc4BU1uGO09tWHHo3oQ Fv/bzdCKyFsxysE6ZIcm4kVOnyqi+yeoY2FjETRhQRRRfHXntXV6AFeQZXtPQQoozO5JWkKf5v+3EMf9 +sCqX1stuf82hnAKuij0 Wt9Bk4NyIlnyEv9By14L/zbJvBy6rNZkpJEfaoLc9/2nicz4GxHaj7rAh+8HersSIO9thJiOzOCEQr/+ TGxsDCG1ahk08/+K5W2d Qah7FTGM9AZfdDmPll66Yz6F5heOSGpBRlju1+LjDQz28hxivVlfiEuPYXKPgZel3Spu9awqJGDPw/m1 wiME1X1lwl5534ySPCzl YHStMLf9ojnc0jx39jtYReTquIPXrDBHJB5WnN9bW4RsmuLoJqIesGNFFtTWANtWlO0hhu4ONfYhz2wF 7zSFgEae5ngQr3YB8f51 9snJU1OjtiIl0rMx36XZ5ol31d+Om3DGtm/9+CmU74wo11i450w8Sy5SjvTUpk6/fth1/cFt7tK13pFg rQRgMQgihJYsX+/v6eXt 1fnozt5nTloXUElhfwnmXmLoN1galjxY4PEtaqOGCOBh4dBJrQhOXqlocuOKQtCEe1ToWO+GP+o4e6+n a1sYLCasdzGePbmR1aJ6 yMl0Zqtt54kuVmbgMv2tK8Ac8dsUp6Y7hIy5ubNdSkiEn7W32bwdPK2NBKOSXxrroHUOe5WqBbTRsT+7 SxYsFicXHx/c7dBct1Xh cZBbyLl0sSOw17eeL2diMnayQDkeMJjua30XyrvtwVMNqImymZK3MoMNrYWf333CWDJugk53N3WRpLlC 9yhFVs4y1h1Or2ga6Wyi I+W+AFRYGIYS+GTmqnI+ay3gumY6Fav+G8NoXYkOG0HABwrjVyE9NVxG2cYsXy2+nf2v9M6biwE8ql4O AxGSqRyvn226uU+dXfyb dOfJNamL37VayOv4xZDeaeIfV+a+In5qXMZAfOsl8gkyHkcOwWp366W1AiJRsIEykiWFnxx8hpV9Ldt3 jRPeKy8bHOKTKQuDCiTx 1CQCeOuKHvXl752+HRz9+DXCWTo5nU5FE7wn4DaUbFNIl5N5K696HVoaS7H66V5RCIJBVByDYFzQ86XL BE77tbxeM3fiSzabAbXM jWxQac00qce7zkwgLuR95EhE8BoaWjd6Jdu7tSdXt1b5od9vyLJ3lWCN38cbIs8gRUvp2DplomlZgAVQ /NMNWOKm50Xild08vm30 BsXANoZ9dXLfW6vmvN/4gvV4/n39tPOTJYc2Ij6RcP+9Iq1FH/7I92ERaODPh8rrALAxxq306l5/nj1i /YYPKVSqHnAspSKMBgFA w9ZPum5Fcs49CyT/R/MLBCgsDqSmpDMPUq1+sDOhc9Es37qCbGesZqzSNOgh1x4bP+/GabWyVjgm4g8f 5UaFSaNcrYfwUFc8ITGN dDl1x7QR6/mdxu51wE2+5FZWLQbC3bKDewPXZp6dWQoj3bnRCVsMLdM2g4GU8MGVjYFJ78VMsHDoWxry HqUHFTMlcGf00Qa7+/fT f4lJFjmm2mmcweJLknv3pb24QlB5YBa9+4Ydb784LPqQkdazQHVSZL+N0EKINMKEwAyMDdEiWLEyd5VN Lt9uNQze6w1v3dEb3gVs rHRRcnPAOmqg9hw66HsbuHk2dej4xkjz6uNedMHzehKtxEvbSdk6guNX+vWCFhQGKokiStHdwBACTHzF B/KGyTkMC2oc+vjTLM6s gpc2WMaratVhUxqDHJZksUCtT6GVd2pMC3bFJebYumwyG1VLVPBXTJZBZAqDQyLTqFECnEfkFQUH1ywY zYBiLqPVWdruYpfKJ1p0 B1tb+9AyLYYi9uTFdsiDu7OUgvSsnn3oPqUFpRfgSqG/xLTBHAcd4BcfoIccCgSNog0WhR48h+fLli5c yUd6wWGsxlZ0Bph7j9wE bPpmHGTk4KfwlfKwEkurbwqLvIbAiZhCFYNolugt8dku82xuJ97seYJMOE4Oihq4PiBbbK+4/aNuyVfn i9Hu0a13nXbbf8lvZXYM AwCJAfFuNICQSiVAo/OR7lHk6kdLTNswfZTQHy3rGOU0QZUckR1+hEj1m8H0vn1Kgufjoi7UPrs/diSz cnRShj9sBZlksyXwnf/A IKl/Bf+M1iWXvSKBhPBNK44e1G4IefG15w/y5e+A3Om6tP+ebS63eibWUWD8d6m620NiVznPLTYBIpoz iNnFx4njw5xk60MOkz8k fDedPAiF6gTMO9hfOZAJKfBFmzcbGxHaCT19+aejFalfyypmjon1r8iD+/S/jXpbxKtOle/kcSm3eHLt l9ZraZ8iSrbtxyVyLPKn m7wb7TC4/MC9MC6xC5/ZZYKjIvOZMPTk0LWDU516sKSg46vArU3yJdmiCeMbOenJCioK/Uz36/K9zpw5 3790/f/ZsyJmzi+bNW79 9rki44TqYSe3g4VbLsKsUrhkP8NmyBde/byG5SAXVIL+io8t6+pJx9fOipCtjsrfE7slpx90K3blq4F7 ++ayAX1qY1kE5LRKRZT5 NrSO7qv7IUoBUrOPDcYoY/trEAljlV9y+wv5OYVp25XQflfUtKxczZTmbQFgVHKLEGobg7LdOUPfft6o iE2a0QeyvAi4tf/cr+/v 69SVVRZh/KfmNqBSz08/QJD0dA0E1tnIEVrr925BWAuuWK2sVHWHlRJDuH86JnOCbiZ8aIta9g+imzet j1wmAi8qG7kRO0m9Wjuu GQL4VdytqPWlQZho2lOcyw9VjspbX1+chaeGTjjPBEuX8Bgs78jVh9+8cg3Sh5OPh7yUFPS9FD8dlpz2 sHP4OSZDTZvFoRUVEsat BUgNmVXQqqRvmMg6oaPnQre67zorhEPqHTITRgPMyEjlDUX2JG/aeYDppt6HYi3gBaw4P1FtaNpw2D44 e5c3hH/FnOYQIskWrFnl 7FRx62VrGtvjTgCkt6cp8i1Nf9zuHrZkYPtkFst3tMwn2jWW4Ew314mbMow50lUdKuXv6iWywFpjI/OV y/696jn47jLsxdxpnRd6 UjnsUS0zd532BuIdmQKL/C0JbOGDeppe2pf4cumHSL/45lsuWe4rA58kXw/2DXimFilaVYgtT003fHKs KL3fQIzubx1I0X1FWNG4 qKz5Dm8jF7Wv9rqB597aMx7mUPYKhzf8vIYbTudLuzW+WQerfXw2iKHl44hhk+kbT1zsV5j1gYyviF1g 0HHAAHEJv/wRodEZFVqZ Id0r7o5yekPiSf2baKGSpj5R+4t1Ih6LHQJ8Unjnrw3GafMcx8JzoKVPI+78A0BIExEZyXhonINPxWao NKtcH6WzWh4jiPWQ7sjC lXYWYEgArrC+XiPmkv6fTookWczfio+4KqawPUQg7Nhic+OjM4QsDx9tPgUXK/bkBSXjmZ7xa6WJ2yvu CzH6RWL3vCjLc6K//OYR 0ecNTQiuoddumcBpkl1PmTokFLPZyPZCabAxRnTEMTCx7IpSgkBxi10H8gN0FPzTWp0aCbe+6taQrEvO 4fUzxffDhU8hQgWKX6Ac NYuOuUfUKu9OZp8En6nicrdhYCFzBI2Hi5GBtBUgJXgy7Q1CFX01Ril8+A6kRlCF1Bk8sQ/rxxDOPR6i s782vXOg2oGfXbHeeNJZ QYgCE7Bz8Oa6+NuH5JgxFr1UQcFZa96w6D7ou2ku44w5BQq2337XJLocza8LV2ocCyd+Ra6x0WyX90xC +O4YdBRyGISS7OczjaqE faoEnD+1MUFmtcHtAVBVhzg0+Gvh4GXWLJIz2EqW37u/2RV61jVuKJoyRbhN78CBGcbYk0lmwgoLCUXv Dab5A4zIGo60Tn4GXZvI gLmQ6TBDqpP9wvAhJ7Dau3TWsCsdniT3a2vGwC+psb0NoyvH07dfPFyzEr8ueISxsrYI3+3pd+7yJjTm zz95SZOuamiAFEx7XnJn YJ8fHDFDit12rtSCfXy8PPDSTgWHHM/Ixiq8VIwxKIgAtSpo4il/GaIXTchp6lx6Fc5WbnV3ZBVxjlDV /2ZLTodYAIe03pBGsXoR 5wArry+OpaXVBhU8aqWZ84ioR3+ih4CHoooGsjDyMPcT1q3rTjxBTti2np/b0QN+NzmMZQiyR/OOdQdO v2ZNnammFzSXnCchM2C3 ruo56dtPYde2GcozYjjk6ZjDOyfu1L1JVUs2Qy963S/0MjBS9i+8+lyRNOB4vJCuIQmfZ176OonVT39x obzNfzWKHlLeKSaj7i6y DPkMOL/vh01ACedjAj76t4f9ubWWykUjdBXUkTvXi2vRlRYlVXnJvdYBJOQacJOswaUlAoozaFwZVlWK OmeqNybZCyaEek2buJlg d8Weasx0oS59ibLna4tYH1qPtzNvUUf4y9MvZQ0RLInNhJyRBGn2npFdOoET9Bm0GyPTLb8A0ctL4u9f zaHxt4w/7Zwu2CiLq4Ux NZRPPedCVKG9w+lPdDCzmldzShjfIJlBigQ2Nvrr6rLNbBhgqINrTOEMsMIMSh3EFvAlS600xXUXeH3H uU3jyVI3BtRD+IJRKpU6 kJiwfusdNSqCzTvpVKMHrp1jxgEzFNJhVfvHoef5yITNFX4T4Sn64A2IC/yz6q/V7pUqbjEH7GfoxAnt R8kX6xFpHgjGU25y4/2K 4q3O3iuDIJZKecV7O7dF+KwBWYVTkLOEdZXDdROixv0HUEbwU61CFFpj33tVKqJtcTfDWQFyQgpV1gh2 wveyW6K1gqmedHVXXRCI NflE1Yl9BNmRHLQ3BRWUOVXsoLB9RmOsXrdC0TDj2J4sx0hMzynpZISe4ZSJCrOdGUEYKu1Bk2Rpz2Tw HbbhKrQRlpdUkwh5gTWh lTers9w8vApxMXJpg8Ut1IhUCHJ994QfQX18DCogDjj8OrvlYegLA+fPyLONZcpWK+rqepaYNGUrYQ5R oHNSVZyGcoMvunaGL15V KM3E7270LK0l1XO/j62++etrYVg1fTVuivvMdjdbNbUDGVQdGdwNFG7a83Hkebx0xDqrBKDgsf4NdxVx 1J56OPeRKWzIKYwvzw7U LjXbXWLUbC3hlapirjpOG36kwP4xUEV9lauHbALotvbS7X/KKWpRfcMZm4RsDRo6Gm2TLb65kAn45FoR ttmMH+ed+U7iG65y6h/A 28DR6jM5Aw3NKQL/PkTuWcas/Qbs0c45E471gQJ+apu0pxQJvUj3wavurnYQMTlcdoHQqLl2zOC1rKxH hEbkeX8q65ai6nouPDiI tCmwXSslS2RdiGOLg+MZiMxjNqsDHVFlHw3GE7J1is94UFMlnHiaJ27ARFVtEfCpDBF9BcFhOSH80l55 WVAXienJ59Bh9v7ok6V1 UZHIkySDE/saR9EtvA6cIRZIffbuoKwTWytp0COQ8IPPcYmPh5uUuYD06g+Pp+DXfDX4qoRYMqoRWs6A xKM9dJWI/ZJ2YIx8Ab8J Phqp6FLdLLvDgYRSe3vcwnY/7nnwPp7NdNROYzzxl6k0oz50kqFxlGAkpJAb099AP9+Wu3FXQtkpbUPJ x+nuJFTj1K1JJ5+7d6tY q7QDXfT5ZTKG0rQVd8pWAd83oRl/EuFY2XWBjuHTHJHUm9idCIoc6VlueSXFNZI5IzYWt/Zq1rdl/JIF QbPRjtVpPUJZmr7//5wB PUr7BDaWk6k77R2JpUi1u5iuYvzZTFkai/cr98XV5bddpeG7VmYOHBk1TX782mqWpr25EiUbqS8D7oGB +P0phjJpFXHS/SfPmuuy zzfkbEo0XTjPxdPYqPaElhT55e0vAyEvaw9KOazFoaEavl5Aoe7Ym/2PuH8bFGTZGEHVVZXS/NYuQAyS Iv0GAqS2xtL1LYlzprvH hkemNRiMCBoHeYJD7+Yki9Hp65z16A59RsY5KtXb+cj2ZxOzdXo8ooe1zU2j0dZIW1yfPSExyw447n+D 7imZoZ6a/Lyizc1jZkKr vck0iGRi0lVcMCA3tAZEZXVROGlV5n1LgKLTpi6GHg4smDuZPG7EIhUweNhosMA67Qm49GaMP4d7RvsH wWb/9J2s2kpKudWp3n4g rECBnF513kXv9UdMs04sAyurwvNxS70hHm8l/sQlHagesf2Xu1m6ky9q9HxIxDoomKEMiS8fwCI3Dd84 JIbuHHcTd5GK633T9p/D D8GXlL1pmekoX4Jl/019ZNPsLEv5Okyb2xF2Q2oCNGal9rk0/M0nPPXdwfHSTilH9hsxyOviUawTp8Va z5cy4zwqxyYareVtBG9f ALEOLjgO8qFhQiizk664a98qdDOF4/dcSunVGBL2ZMyPFCSGln1HgwwOp7O7OSnllz5y33+JEMC283yM hsVzOIYLjPnZkkAOhVPb 0qtB8523QZJrwJ6id1gDc3Z2it4CliBXoK2RUUQkWuZxvjEicuBjiWvstZlVSfil/88/dPr6+AD73bRL YR8041shikIrOoyQ61+x t4LucDYvmGrede1hyndVd8QE8X7WxuGIWID8xr6ZqtZHRqT+u7LqutmiScfRH9427DTz1cUJQ0xQkw8N Sbwsll7EmAEn64GTavXV oyE17vHh01kWp7kdBISnHW7UFHECbfmgCmGxe/rjqePREBz8R6M+Nn/M84YEesailfIKykWVPd6Dp7Sz algyBQHEvYO26/ZJD9SC D9gUDAiKPd3kTCFQ76Mrm2S286RRmk9c7cU5grVQlJyLqGRd4sz+qXhDlYyiHgoasc1DhIsbtdUbzG4d 4tg82Sxq8hphaV6j0tLX hgwNYO3JSdbW72EzhEnuTSzLCyF5jt2rFxSk8RRGttfF6bZXTiDKWjKNjJrRC5Fqo5A27f7jrvahFmdz toMlp0Fqma2Px6yrZRVm YWsmUFy9aWwICRNHy4b8flp6EWBi+SPvfalbuH4BhMHVlF2WnTLH4rnLF97pC+k8hecDZaadw5+YCwLP hXdFhpfkxU19tA3j/kPv rcys8YGsQ4wMi4CA7v2X89ljhxKPsX19CP2/CWsCUBrDCwkBiQgJBkpxYqtFpxBWr+0AGoOo8CMje7wg wxWkGewUXliH1DnXYOoJ yX6gIe0oDP81dT1H17/sxjr//NYBElvTvsbgEHlcgm4aPEOVeR7UytfMXruCi+G2Iv1iiBDZ4mEo+0/T 6pgndZQ7rGrBdwFltmXY +XD2CPIESjxApXnhFbzzwGGTLl1DHfW1mVtLGZBXo8An4wD4zIhIuRIBXLYfvUYNInjNJBoBgp8S6ZTV AOLjYd+hv86haZkrJLyo eGgvd5aUDGxE0/DwKsHou9eCMmlH4irAZm7E2Xp1UhGR68w6PIPZFeEZBFFQf6nlh9RVGgmkNkLFzGVA +0uzVxuKYBElj5Nz6oYw w53qNjYXKMaNYOMLZZ2Wcwy2qRObl9YD9TjQblnYuLeCOwC5wBWUEOXnBWe9DskXGpazRKDiX7geMXjJ YA1RA52en8enpDVSAkDr j2Gk8Jcx+uhpAto7Y5YA/ClYrfnzz1N7aIMQTFpX3ZvOm9t94/cBzyPkVA0CGjPhBNnFYKxXgLCRiITn oLpuZwivgSnTYbUm3VcC kkPRQ8Gvyy2voLLz1m9HKh2QS+CkCPFmnZaVWRGm1S+4uilJZMgxpqbOkrFFzAs8BVQNSRDLZIPgknVy jvnK1syljLKMH1YUQKwC NnpJJnHilsqq8GrhHevAvpdmlDUnYlyFeKL1a1281k1ogpSugBqmmEfHitvVEHBKEUhzcsOCCSNivsVC yWJRiDmd1K+wcKEcXwt6 WlfYdNW33U/cgnYaoXkfFckijfpc1/PICxPyjEziUZ38cUpdgrM72+UBrpB2ULzGtCw8qNP17W7lhlid WcrBmTvQubt50J/dNLOn sAgK2eTMIq3fDPuRvOXT/Ev1ikjj7pk1waROns9nCLjkkAZEHmXRBFhqEoPHc1NOb2ORunr4NUkaCX1J dHTGtL7d7NWu6NFi8rel 0BgG2VGldXQGaQiX1aTLneo8tvdyp4Oah9kwVGBaaL+aNVMDWyzJvTTIOdnGlLTTLTQLJXOvyE3btlwX fQIvOoFUjeLtCMRAkBPc bfHo6T5nKcyMJidP9pnczznVBgqxe64yBk5tIkYRFPZKolXL1S3dWKiehpOYUYive0PoTJLyYOzjXcql a2g1FVUF3YJx4b4aCi2W cQiV37syA/UtJRzsXASR8yUMQ3vqs3FlOfc1RQjZWqAwUQLJQWLRweiDWkgdivxuqWYdgriHlWV6DrBv PU2xYU3kAtHGdvK9zdn0 q69fF9+/SosAq+gToa5pSR51L/ySoZJvShmDd4G5KewHj0KObgbX5/IqbPeCHkGKtZY3brFLRCRR4EkP /S31g/o5mbECZkOxMax2 y8Fae7Um2neZOiGbUVReJmgJa0oERP2npgQQTJZ25QYUVJolSY6TOlBQdvts6/Sj9I0s4k4+yOkpU9nt rGd41ynJ0tHfBt9E5c6z SVOJjbjj0gWMkd00+FaPXAfu++MoHBXFlMGjGs4T97AnK+wPQom33JQV+3cA9dAjHg+U9e/VEAqEg+bV 465t3e9yEPwXjbg6kUnY iODX/J9lfKy7ayVDc86XVfMTqz6PKrsOcXclAvVKyBCWn7XpnyqMgZM8osqMV5liMQldx4sg6zYNvMq4 9UDUG7mqLgYB+TjU57zo ru4Em3VS3Zmy/5cXe5loNlPsWZQdf2vxFSKIbTT/Tm1MoSAdWrSAzgc2hKxLvlgch0aTsJVKLCS7POgx 3IzIWsAb18kt5h7u03BW BIdyhRfcECSdZkMcJ6zg19+hxz81PhsN1jQTWRfcfjytMZhGtQ/9pe/oljx2dpS06i57oCJzyAMOHPDu AKdYm8giSWLCbOwtDXGv c+6OqlkzKiFnaUrm31gSWZ4Y0SIrJHLBeh4Ue/vmn4lYLBOKMYAEhUuPCW30cRL44+DK59wxNgdrf8X6 yQIgkrgPdkO1kUgebd6i Tri9qZuqWdT9+43Rsu+mN03JNjdpzrvw0Gxv7/n8lKigDKiyIRyZTf22JHhUts+Z+tN92CLoFGGHXSk3 VHB6FVzLx+95AFnmQvm7 HdURWLDEJWNi5IEOXJegkWjJV9xSPTQYPNvR//mOqw26dZOjCnwe4EU/KoEWSgfy7IV6oMR9mV+p1rFS zly8NDlolyraSDwOOwIP xj5HqnjzbsJRJ2QG3vE/rTqCldMKqxXprlIQfeugMbMaRepVZ2ATDLNMTKFuvFua9/Ez6QPonp0A8gqP FHyAUepZuh8Y/w7pw8by 6ly5GUgWaJNbxHXR2wk7AajTJDbXNado9rRaGb/FSyBgArLAwFkQ/frz0l1+hj26TqnQTArGXUNmhbzC FldsBQZAaNaXKoXMySb2 OPHz6PhxgilDJAFWDia6GYzRXcRQEVYKHUjKReNE3PqsahjsoecAzWUDlXyrVX4xY9b3N2GHJmJx8rPS JKzJIrQYJBIgW+Pr5Tvj hq31fW8/5ytK1M0YPQ9QXmIbXQfv/DwNdLPIeglWpIH9gETJSuTL3m2oxbRvEfe57spfvGvgR4jkoqSH oAVHBaawFmCOA1CATwGe Y5LPe9bo6ivGlmnbTlEbh4UPseaeWALVHoprtSRnPh9ietaa42dyW9Tw7+tZWjDzsanUNmCAbAB7Vf4u B4Qh1TCyr3Ea6IFa5LZq YupPdr50C7jRtZNhAZH6z3gGR7LjlhEoBNEYgO+fJI26M/eEnbOsHFNETFQmOGfOTKw1UAKFrbZLqnXD 1xXoKYxWssDAfyYpfl/+ +/FeDt3/y9/MYF0/QaYqIQAsAIdfdq+nFLfFx6AS01g7YthBvhTWp0gHlAPdNsmLnJ2BJWM84Br/hmz5 nmp1cAMi9lOGJWByUGVG rL2Rrp3jam6yhnPw5Eexz4gYg4OaFVeBdpDO2rEEM8rIBLzUu9+YR9fsQFOWjjjFxBITMnZvySkuCCMC SmsHpBIQ5lQ1uOfm6llv 6b9m+Vne50RFzJ1GRczMX8u+KapsyY9lbglWkaLOtgLJWU4+moGNumWBnWCGFOZFUIkCsE9Ks38I8EKQ Qrt4+y6cdbcOSwKBiMgk 2ulOK5c+i1+t/GyJ3ml4/DYXURYeEXRaQVKqLEUaJip7ZLQmjwAFZoJGgrMjY+lteF3PcBp6axJL/DHf v3Nn4+6oxkMZDXs78phE ABAkAVapWHThoUM/mpCkCs25Q/V5vrdF5d7r3/yLq6Ykfbx0V4mqBKJBbO012wn1kSBGMMwGE/CNghYX BYEoNuImOwWBKDVhhYTC JNvAJDVzWspVFEVSJszh7GTFVhZSLOQcgRZLLZdBKBOjJltWKORXHrsw6MRSNpWHAPCbsEGPXFeIWTNc TnnVCAVQLoci36M5/Y/7 tMAyj0+eFYeMHcXvnAapFY4Ev62OkG2daaqHsg6HoPOvTh8Xe3qh64dq7+/mSO0CPgFkeBJAqlP4VOIR O2MP8qOnWRgiupCGDVUM xt8uP+c/n1O12uzon3iu7Q0wZekwgEL4VTQEUna5UxVc2eo6aWXg8AvFyp089znSBxbc8qYtiFh4mywq 1iieuuJsk3jOzg8tR4+v PNe76aDMi1lDkaCjnrQr0rDhTFRV2j7m4nVa45HPCRt+nzj727p3Zw7rNWLIyOyXJ4fakUy4o5ds0o0B k9RfLU200kwm6F20OEKz 8BTEoq8rcEZOPag5FTzUtGl44giaFFCSlRqODp3GmvFthBXmE6AkhmYbo+hptnefUKPuLpEs61aWCpnG i4yUfp3bGHKsWLaIttWw cfpRwHt3IhLqQG17xm6RhhD/xOexmFEqZ4L3vzMWEj3q3EGpLnHMCfrZe6RPqGm9WCB1evaXgRkMR4+7 e69ur9+TQmhfMJXpd3Iy xbgniXkRRUV3aOa360HoYYaL4+PV+wqrhe1mwexgIOsHFa3MU3gSEcj3s9uKM2j160LVZR2LLI/V6/ZG Dh/zK+khs9f5ufj9uGAf /w2mRiPADq5pvkYRY9U++6dS5c+Hyo7/1jlFDHpBSul6+vcSQ4UdDV3snZXDMfNML6GvnP48/Q6eO/G5 sPhMXukbLh3GqgoPaFix xYkfCv5FE7AGuiYZltlZqtPerPScMgGlVJj+PHVOcWFOmTeO/aJ+bm/vj+KapaHrNw2BQ1ZNhBr3bd/6 wdmwy2h82lWqm52M37SN A45SM3RbbBc5joNE/Ln/z+g2/3X/kHYdSJraN7m9elQ9j48drdHF/r/wnL1VZ12/hV0f4Mg12YuDJ1yi Ws4W8DxHqx3tj4AFQaCW CrAo/e/RsZnUd7pp8Hl8tQj3pPeAeoRbCTyA5sAVDtRPTTYUCnXkyu2jfCi01rV3wPwm9zUvUKAf3yhA K7aPTeILBq6n7/ElFRUZ LS11l5nSizSirZjIOc4f4Y+BaBpjOyYt4qjKYv0DSNv2ysNVw+qTPnKHGcJsWCB0n5frlkwFmu3EvG6U e7pMikQzhp9osBwOBMpT SXC3JHnYFy1rz9xRORHBWlTEe89UZKaKKTL3+wAa58Pm9IKAkUKn3sun3nFgzKydmPw4+NAyzL4GNUN4 21hWZH4VrJpxtBbL5lNo Pzh003+1l4uIVnlvNtn1l/uvQ500AVljBMirI6Ud5GOyhD2LUVX1co9PaEAfkcsm6pS0Iijbe5ZAN07S Xc399iBDFii9YydbDsvb +9M7nEe0Bz4/f/xL31lKGSys7oFkMBJkRggg35OPXoeFezDxMlAkzoxzEZHOgv/2cuWbimbg8HGMqvdg +bp4113LkUZ+NWhMeHvb g/z7xWprFpFXMn1e3hk0a+Bjjz5JvRGW9cxqNPEmkEkSdmYfmAYxEvGWS1rbCXmUyvkkDsdWORm1w1er UkoIGimn2xbGOwps7sgr QPZ9vGWpW5Mr9Ut5iPel8q/uiQyrmOC0UtGLt6+etzHtn0mHgwMT1CSSZOMozMPMeIG5CcjHHeUHvXBN i08NYnLJfQ9knrLFCn/r 2zzOLVa9MTfc9wlSTv8uncGJQkFautIRZNqYk9ci7g4ftyFb4FaNg8vBf3wqo3losIS+my7KMJHEzGZP OKJii7ou4DnJvwc5WZl2 GjTJlypg/yCTp0WxD8gDz5rv+xo6SNb21L7LaJMEhjPG271gitpKW6l9l+a1o5WEdjgiED5cdHhShZYc yc3O/ipgYe203/0oBCI7 byv0uO8zoFANHPK0x+0cEJBcAgWETXHxTk8otJidt9+XkV7XrNVYIt3J/8kOZhQv3vpNlAFvpl70hts4 4oNycnMiIyGtXrwqFwqv Kr02gRXVw34dYB/7Ytr1v/359+v9GUPgjzJVNB8iHsLZCDfEwA7Mhk0bMgdl3+6rJTo6Zl3MoB4gPZBs Q7BRPXmFc8bFPfKpSovl ywqv1dAWXlCyOcXT+/M3dyjzx6hUP9DJaTRlLcj46ZyiZWvPFgp79y9zpARQhSd/euZOcnDxpyuRvvvv JedblvvC0o4za2IHdh66 /sVhcUFE/nAPQIkyWYy68IzQU5o2+tN1xcST9L0jKhFOAFRa1zRBaGpalGcJQGOZMmnZx8jtPyBZS7SX x4+p1a/VURQqy4Zg0vr2 +TiUAIf0btGz/5tx0Es1oPoreaUOXztpDMauIatbQ3Pa6af2RO9pcKgkdPp98EJjbSRTgJBAt8ddVD7D VhnFo8noUql8aY75TNnr WuKQI3fAv6a5lFGq9nKKRtdTfED3nWhp/f/tbFB84SjWMbc84QJwa5lXI5rn07+aNm+fg3Ru60iAzXXp xWBz/Wu0ieAxuW88w8CT y0ROscseeSiX0nv6+DUEkoInUSG1jOLk48yrp4VSkgPaf5Y09g94mtxs5x01FSCtOKjzr7WWo17joXb4 ftre3H/XNN/C+C4tFn28 6v9fozSlmT8gFj7KXtX4NCxOGBd91u7DD0wS0tz8c+/v6+av6Nd4VPWVfDh1bYa6BodaJph71nuZafzs TL+kl30qs0XEoTht2HYA njXgSuDWwBnccc0e58TtGi4Wtfmv3W4/Nep3LGIiZC40jfnaT+2ZBA5Coelt3Qc3o1DxEhNSA98EMv4d UJnS6qQjwB89Hfj7mX9g eP/f4+/pt37rN/OCjhw/8ju222f9gLOMK0DVj1Fzc6/j7+u3Y/kf+0N07d/r7+xOg2PeAvAd8U4CcJie Wq//y5Uvzg+DQhSM87Xo KCOSbAzxqlbpnt+1e391dqNe1rbbd0cL4FEhDaY/u9uJYOU156FAN7Tnzmbn4nAWCSjZXGacf4lIpS2Z 91nhDjTj64vLp29xXpCF ff/utv6/f/0w8Rt61vsIXCI5yiX91GqF9dyMpx2eRLENjL/GoSOtdf9G1s/Zsf1+/6j28uVn8sjSItSA f1Qry9/ULqFotMzOzIDG rJHRvHqj5iG/Ay6k9EQeVeOH98ShEtHcMb5bmxa/sehUR6lvymnpSQwLZtMs72xW9rJR++snf12/GTz9 ZHN+2dStf+L329hXg2YG jxyqW84+GcKm70z+pRgnCUsx47kZktuTcvmgP7Ea4ylELOLwc7gz9pxKLPH4en08aNeX2vKp3efIT4Cz 22GVvgREmliCzPnCE40K S7fxhiIuCkFaCWYCT9pwzJ/i2kgU+Xo4g0g2RkKzVwxV9WgbEVbSLAd7j0++n05onpaVIm7VtMdEn64h 551RUVLYf68YZ4SVT7va azh5LNqeOxIbT556QN1vO0DzI/QcO/Fc052GWjcTBO/IykTFUMBNt2oNLb7Sjw7mo2KndVDiemvNWSLH DMzsnnQrOTT1Hb9WIH1f gX/4H9x+wKvMRpKamxr+JN+36+MUaUOrl0l3iw4Wp+Z2Pj5jnW66uRP7Yn2wBhzFtAbbNp53gTawx2fp apTq6xhNVf0uZoni4/rb mp55xd00hj/wgEDkbWojZ3fP7iDxDtz24uIKdWJU7CdXkr0YOkTk99ouqoh6LGjZbGimbyfpjgSbQKIJ H5axaDJQXyWl/AQpBqVS NQWkg1aHzAAl8q2tiVK8/cnBLOu9ey3ft2S7rVq7IA9/EgQEsU69njyFVIl6QZuoj2quIp+fN9/L2zm8 DERmjWE9tk/Nn5z70Xxx HGq61EQcF8Ak0lzF+Ih8z+blbj+5taja19OWB/m1z0Vfqr36ty/ayQDeSvHXI8m7MdGc3d+Z5SmXf/v2 +rdnNWF6wItrd/fr8MmK n3IbDiajY7Xe9B5dS5bn8+gUClWjW4R2QvBxrmxDaI6aYpwtEWlCMRcMjeNGb3gmYOvkg9to9vghYNwo LBXswrcDzE81jek6nXWa BMNzmoWDvKLcDsNQt5Mgp310WppSz0467u0iEe0NBTs7cDWtmoLXc65jlbJv5F8fN6z+DBNQMrFe/vtU sbt+65eFZhteYYdeuJSY oXOAKEsEoGA4qoprvVA5+ITPdJnMXv81aublaPUYCWImJqtY7JvvXksLmFjszaxO85wxwH3a6/9yZswA waOgQk3+PBd4+Fz5eg80 JC5w7dxiOCXOXTDBV1JSXW6MFUL4+zOPLzhy1s3/7YSXKKOIRZFJaXNAVqWTkBCmACfbJGU3+ZEQkTdO Zs10aBSQE00dNFqoMiYj /z37x/EV+tJrNcP8wsaCR+y9hHByz8CvyGE253bfLmu4wUdFbH4+yfmz75padQUU3594nrXVRaeMRB8o fJ1FhRA1xAUPnrVJ22sI 049A3q9+/evWqX//+Q5OjFPuf1f5jwXbmMkzMb9oDkpjE0/fN8mW/ys0AfDLzLMPP2SFl/LNP9dvEhqv /DbNgPEWjKW9qzwVBvQE EvW7fpPeArRUI/zbyCc2kjAw2UKY3uNsW/33xDMqaHDCS1uTQZDS5s6/KviDG7kq6ZD9+flJUcIcO+U3 FIhFcQYy8mOSh6hjLT/b xTn1zC86b9gQeWjlxPjsuVeg7/Z/YbNWxW7Yh90WY5n1yJOa61sROidvnqpNiCJH+8MMLZ0NDJNtgz4J 8St+NAhir0Zzg0FrnOAW tVo/9/alZsKfXBFbmH1M3Z8AEo0x2nMEeubRiifloT5fInUfqTPr7g1ljeq0EHXXxcKixx/OJFcWf4ny VEwAuXrhw6+GX99KnAqN +9O42i1vGAICpxQCrEesHMei9T90T8Zv089dohs+6Z/mg2uaI3H1qTsgRi08Kcayu14Zy7QmOsyLVCZ+ /syW38Wvv9VgG526ACKt jeaQwl7l400/hT/CQ7lIj7+rVr//NurMYPu5pCAWmGjq8mV4FbFtuQGTYiTsIij34fu4ysQwQKg0h8VL 6oVC4+rd1/YdBefRrP29 2vJKdCakwn38TWYKnzgQNLynuMNanWyxVKUsEN/c68ZlciWfn79cOCfuZfvCt2JMLG/lt/tVXCPUbNOA 3Th4/zr4b+PunyMzMTEx IrN+pkP3YY84gi/ee2QQ9Yp+PktKbLOLCV1Ki/qzEHaKEkvU5Z2+Y21b6t29j+Ob1m0k//ZYTX4gWUlc n6fnC7p86X//mDQD4+vn 6+GQ2MDOxkbu31g/PGRkZ/QoCCGFN6v7t+IzYXay5qSS/wsEDb++lyvJALJBWlGf7Wd+EhmZkZJgHGY3 TZ8iX3Uy1YtRIOkHSp8I 4lrx8MtOx0Kwth5jmkKJg8w6wWf6jefxgENq2ItrZVekm8AcndywOQWES/mbMNz7na0REUh2raMM9rFn PSxaK/f7gH+3GTZrMmDk GQQWD2oobN7QM7iEGeBqERd4cx9oh7m/eD6g0QICO0D3iuNfGjL77vilN8La/nnxDahHHERQaKSuAu4X 3rlu4q1WmK9alpW3qnne ooH9B6DS23EcFLRrQYsra/Pj4+cS99IeU6Cm8q6L/n1yoScGLCpnYWEctUZMt0wzSPNJBQpMmKkwpKbY yV/hoAmGyzaloHe0BCi4 HYXOADBtBUkmgBc3DerH+/PQdvdovFfBEb9qn7NuxpfoEmKc1OCSf21Q0TkJubkz6+exs3i619MWWG3W goz9vvO8OSNz8S92zr2Q pnpmtdwAAiYmJr1+/LhChFLbcmmr0SwZUZ6WwDe/ohSf8YJsKpFRoY9n6zvm8xE9rqFMcoJ9jqQ/AwIH 8YkPlu7bHvUf23Bnb5mX sefOPTvZDGTRkcP+TFlPmPyG47eFEN2OY35wyV1jvNITYw1Iwk87rMY4IdGUU4ExEBfpe7+GHceMNRoP VDoWJ+g7bxQs5hSGHp/X f2Obuh3re7VJ6zo57biCG0jy8ikqUqx7cDtLujV0cIjNvCi5u/5xSJU26og5ns2xzUht0kyk49UNemv5 +glJ0RMh7XQrGbA0sEns XSAWuV4lWnWrfZ43MJGIcEn7oN05kIYsxagHTMboXgVVQsBrpCOcKh02XiqfAqgwsR5Zc37ZZXZhGZw4 1V1wmS07jDkiQ7ZGHSKL L81mgXZxCsFsNnFuBclFIQHbhfPNx/Emifh06PVjgz0Yy6IFpTsUo0aRjuAlSfI1uJkpqzl35/d56GJ4 PCUlPS+M4bv/efYOHDvn GYuESjh1ue6hLTPNUeZoNK1V2GGm3/9dn+MiRABD/9f0NDSE+qGNSoWLFPn3/9/5SNz2vL6nUpnMyCn+ Ane0MqBtzAoe5n8pgwbm gxP9gh1j+t8RUlsQnv3lEPReokaLdN2OjHoHL3j7jMBIw4CmJsMjVKBc66DolqyFbAWfhVHiv+S369UW vEirri3yl9n7/+lYQjo6 Gl43fy08zVQa7e4nqNAGD/1cg+GArG9+lC7EcWVW/ruM/mUQOYuMwyPkzMqqoNQKsFNHyy92fupQ7s+m Mc75WjtZd0MAz6mWgcNX iJe9qCZkAqsIB/kFWOyBG0Kgye4rNc70eFyT6RHdk0PcJxg424RI7CfIjLirj1yj26YjI37OdTpiMZv2 nAMM03HiP3n1OARmpQiX ZxjMlyh20npLqgjsiHZzzNK0TR+cb0KQ2V/dpsxQbL98aCjluv/3cXJlOYY0aWMy9enm+42LQsLU1VzR c7bebcW1NiDrtWYEsf3l x/SpB8XmLZVlGT7gkrGEZpt0pVqCzLW4pg/L4ib+rlm0ia81aN7/mZH9Av/5T55afNjEOe5trSyYORYC BzFkQKu6yC7nHlDOIsON YMiy4OJo1qDMpcmrXnCha/Tk9DB7tLeBepG8NmRlkphAXzRodjgGgFvzvFdyR6MiqOcPxFULBui1oosv yvh+yyTHAaDQaGaNlTID nz57/drkExlLLA86jhHfttnOVu/+yaNGzZ8/pVb5kGtqlCs55pqwfqBKXauIm+Eviznwd2p1Ob/v27F2 6+JfuPXuYDzN/BB/3XnF 4vc647701oc20naihwq/eHjOH8DrEc3Phhnzh7YOvPaNQ4Cm6/rytH7LEXIEJOcJDizsRSCoVLZviqmB PmU8giq0ka6+GEQK0D9u /1ULq3zDb8T6HkipUdKicCroa0wqpgIRpns7H+eeevrUUJPZWgUwTGGx10oOi5+2k3m1qMqiCO2gXslg dZ77yKhDMBpFKjqMGeZl dit/Oyc6+kdWc4sUwmq179fLuRdjpRDWqKe4kIzs2HFMuDzIUxh0KUQgFAeUE89cwKMlevO2SkNzkdfh 0ljdwKa57tWkmWi08QmB nePuhizykwzwgkgnyUBHAcSWsNDmiJtXADGyaeoFyTI6av46nkyTf92ADcxNM5lQwyHtj02OHlb1twyH a39au8/Lve6qug8aabUd 3AQChUFjx/IxI7AVtGI3F2i0c3e200QXWDTjk3+fPBw8Z+yUP75q1sdHxPD9BhpVNIBZF9GR4OBUDjgb EKMJ0CTR61pylj8iy+9s 8jnD8OD52r8nyAaYIw3jMIoE8n9UbYbmNta23b2/cZmmayx5bft0uLUxyqHipDPPG92UfOwdpj6Kg4AT +lL3qX0rQ/8iNznPowMH BqnX0HrcGNHkK7h+3Xz/e+nK3AfoEaSt/O2dhbh2b0Ywxu2tU648ixEbtcVDUagEl1YjMWMP87Tsg/1U b/y613Ik7G8NAmXl2r+Y OWSktvrY49ijyQYFvBZOIlzxi89740LqS2fB+jz992rWIvWet9DhNzpL7uDjl/+8X5wCeB+GSBWEwGCx 50Mgo3sf2c8xqbC+io3l EiwcRssziAi3XpydAbuBX1Hb30dV0xSVp5d687zu1/H5fkLl8+/QkybG99R7sgdA+9HyqfKu4SJFL1Oo /nMWCg1ckwa9ulbLOQGP jCfG1JpOaNQWj7vnq8t77q0i/AkBiYuLkH3/L4PGV0tnKuPw0P7JjDRZu9xMSCDxZezy//Wod5Nrtd2p DwP7i20/l2ggSGRLi1e9 74QSwwQmxKW6+iWA9yYFHZ8a0AHATHGOhCAe8BW4IH4207vtOu7Uz+ERkXSWc3Gm+d/JvwjBMyNmzVme mru5N3v2X8+/b+/cz8iv c12wiurvJFPfN+seyQsDT6Nz2jlLlF9Udbpn+qfJO9vwAfAilbaef/IUL+Tnwf+7evXXzZonESg/F18+ PhlRsb4rTZ1AepGLmKpw oXIIgTAvmFO6/zwuJiyxTOBIi8PCgj6OOxQxN6EEpHJFBTswG07Bm+HrMR2Yr01gkHziqQPWR5Gasg69 RRFFU/6Puz1cGmo4cMUV b8V96naSIknsw+JdMwadj0nWNt4UTflk3ZhSuoIcS00/frVfKKCTeQxu3noPN7WvP3wNIGNm+FvEqM8d hCQWMxJhysPMT9okTxkb Aj9WezyHfnmIYZuZEMRkoqU/SrOc3GdE9Dj+gKhSGNknhbL49l25t9ubSg3lF9quk5Tzj3dDbw+FCkiQ lJj8hGxftwsBHovD2hBQ G7THoY4aYEXx3wiGv9QeHzpCNHDcfw3GViFjTgDLvORsiAsCu3Arp9iaY9xTrtRF4j8LH016V5SC3fxI Yju1/AICnp+iorofC42B UvDxV/fmSHEPo3dt7u/q3K828bdVQ+3QcsKi4X/0VwTuA9ymtOMDjFLRzduPxuio6i78bZiZEfu679uT Kk6WW3igIrvXTuk3MVIP vDcdx/J9sGfgL7qbTunXEoa/jYzJ33dRG2K4hmqLtYtkqNZcSp6Gx8VFoVdTH9YzVaI26Zr240l2i850 h5M6g9yBbV9GuY0S6glc vDpgozMZhlKHFoLE86BxxKqhq2y00G2r2JYKyZs1FKEjA7tjkr4R8yzg6DNOQ768ri4SuVzBdYQsWdXX cMNDqLsKz8z1etjHXTrZ PId8YNCTlaw7Mjc/rhTv9ZKPaOdf+fetW/sd6Wxcf3MNG7m7u4fqEWaKVCq7COanwYszHwfFNWggyooq FShJh4r0rpizoeZsbNBs 8LDy/yY9fF1s+XK9NvtuUrpFCzgB9MsnU4sNyUIPkHt16DtbZdB8khj4yyzkXYx9NCIvFyi81jJhOZvq rhh484/iwYOKYy2fCMjh h78VfGpAlFfrj1rLewcJFBs8x0p45GEYyiAbUAZmQb94G9FPq4vQnbe9ogl0NmQ53Pl2t1+ashli+PTp09m gtSyb7av2L0bYJlqJsKS ewAiCD4a/akhWFAv85JeNy97wE3s6N4+fPFs8rakq8wdluQR+PM7fd7ao5XoFbI3Tvo5gGj443Kpk0xp cmCckpm247rloiw0ii+g tSExM/Y2u53tO70AEb/gR8/qOEHNvqwJIiMay7FjmL2bck/YhYItLrrslGuaTLsHTyplC3Y0mGLJjRaV SnKxlJ04ncMAadr6ggBD e5Jt5Em83zw/47oPAD12IwYTJWVlN88jr/779e2WQOd2tq5tnr7ouwFZz/uVLl5k+DBSMhAOe81+FREV Uai91T1XYDlV8MKey1+7 sVIxptIg3GOAytkfSGbIW0Wy0Jx6nt8y81AWx9/7FYKaIBvEYu0xvPiKByLMPOZ1zJrve0PBOUVp4nSV R9/Bob6OgTa1ObFv4M/v 5s+j2SAw5F+b8E5hSmFk9a5hYAnGEyKgkfL4/f/s22jBQf6mp9zvO7tROmjuZUVAwJvAoIgKPwxnE978 5a+6cOVqNtk/jepEy9U9 p3SxafNugZCG+NHWacdtXospFjuqrx7KmIRIF7atNbZtMTF92YW2X+jdIJkmxHc5Gyg6+TbxAKKBIUqV SRT9+kERkjbIOyh9QtFD fKMcw4p5m/LjzrWLHo6lhjz+7ju/ZWHZtY91RrYOLTAqP0r68Ta6dnsjwwbRfHTK0ZBf2XfBhwsXbzZz xMULra6H/7p9i31VWJsI yOfLJ7vwM18+sf9gq9vu33Ofj8YHUvLlugVFPhv9yTqbrUhlbcJc5mSOPPNBHWncTVD7UhbKop2lgI8P ekR3mNzaryEse51blrzk 26BjCeApC4e+GAKTNpWdgwY1rW+XnEdaHuAZIgdeGcY76HnLkjYQouaO4bMaBm8kx3efpSab1JwTXKId FnZqknr2HezCbj+blKU0 ZM4mc9RXvCQ7zJXCHpg4QotBrRMMRDZH15pq3100zeusLTgh/6D3em59iF/j5+fYEn2esp/ZLcC0wF/F 9RsSh8+sFg8OjlWP572+ fP3/99G3m42g7jIh2QiICiL707/GSb9q8i2t7Hs8WytX2lfyz8NsRY9cIzpVt4as6mRNVNs2j/bOLi8u SZUsL+WXSqUdOnZkWCb s2rUD+/nnFmLPHXMFYi693goRB3sTDhAs1Q6+oiP6Q8M1bFFgvsOxrv424lhvs5y+3R9wI84j7eSFFZI QleRMJsErFp1vl/zosZi VQAvGOmoMZ8fXP1ELOA8zWb4zaUCRkHrRZq+/Di8eTuJbtSgh0nJjj4DtqCTxx9npxow0RTsbORrVUiR crY7bufem/+l292bmpl6 ev2/YPm3BSCEX4q8zoIGRGl0bntjlZNIWW/wOos7fNIv9JMmSGY2EbFMUrP/+/bzDK7249FLj8xxNCk+ 3US5s3h36y+/A68gn2Db ac4psFJYdkeflT8YYM2+u+VHIeAwVK5Marwbiz7x4ZJzNjGiVkEejobFpClYGsBQBf6J2ZYeR1R08Pnw 03OJ3f9ceYcY87DH3z+4 jkKoBRLEdFSBRSwv1Ob5MLeLQciEkcI//8tPqd4UIeITTESUr9j0vovFvS3BO6Cy794v626UmID0W78n YdtDoUU7JEXA4BQt1d49 fkxjDMHt2/5fDj7jx7YN5frj3lNCnwlgECuPkB2+oCWgZakJ2drvOrxvoh6wqNUJD/4ED/6mPjLAs++D +i6kVw5V4mdTRjIsVTIE EMRW2DQwrUIQ19oSy33NNUxHWChhl5b6O9dmaulmwh4Sku0Dc62TpH4dCorLviWbgDs6ISPYeX69bDnd 79pZTNTUtxFdziEj5JdP p2ox/3nEa3EIEi0P9xpVw8EcB58LCJJnkdGoqLLbcHDeN74kOYYWOFE6/8DUEm4Ct9+Fwv3xQOrqyIz/ Puw4xjZZMXs3ehunElNv s9vjbud8QwJmK8+qvE7egkAbErAesxlB3+gqUv8DilVikGUx97jOCb+7rFgeWDaES9qbHf7LnIcSqirj 209PSDuw/QNOUWCxxcHD P1QC8ASvYe3PjgVlLton2iIsk+cJgMJh/A//Y+WlYa0X0kkLVzjKttDurmPRRUAvPQinIFbQrpSdXt8B UGrDCwmAwpQassDAYTKk NFfuGVxItaOqIq9SWPuRVbkSgsDitiUAJZXgUQxeFYfUlmUqHc1SMHeDTtlIdpNqdeHKZNDgKUisLNqA byKsMe1WDQkPQgaKhxYf naQQZCRsTYtaCIzDqhMhAb1IOKtOQ+iq9lAoKfFVhUs/++VBoefoj1h9gFts7v17q5+joKBKJ+vfvbyH Nzo7jSo/h9h24yRPE3zx 6L0kOhlCzGcP1Qzs94qo9szq602go4z2nAr1SRFPx651KrqQGJpWlVxMf8MFI9664azzbu6JBUK6vc9/ U7GTn6vdfUriKc48QB4+ 0aoBsNFyHCZcYjfjk3e8eXiRxctr/SJbd93Hvmha+qR4+fPj/zOjSpcuuXbs+hg3Mcy8hMQESrFv/7j1 79vzf//0yxA0NCKBGULF OXPvxU6xrjeRuPK8FiSiEOG4cXkFBC4GP0kLdX1SKz7522u/+uR0awmDMy444Msas4lLQWS+ePCkk/fL swoJDah7zOXrMzGPGhBq 1eTlOThMeKX5vEi6VIEYC6pOOt9tCye2EN7sUcRkLoqYMx2pYKXd374Gdl2Y5/CwgCRhT4x6Qj4LLSTG gxx9/3PiSo01j+NM4Y8Y M/plYWZl6RLJH0CFcDlfi+sCneAUE6pmpWROKuBDiqaN26dCuHKO+TuJZCKb77tE0xkk0490aD5McXY0 kMk2onbsVIeRvgJJJI18 uEuxQlshq77lBv6z+9iJGbiqaUmnRwx13+vty26QIfrngGouNEk2pAMNO2Gff5Ra0ISlyYv/63866A2N //v179+1aICAcYuy008k GjOiH67dnDzv7kvAvlZh9+I6g3gm8dkgIuGX/kFrSwENj4pW69pEHTcbI98SRLq+4bu89RwOpcHApT41 LDZbRINxNyrr4kS/x4MG FGNOv6bMXHbxtC0bJsHczfhJTkNrOw0x0uYrnOb9Ocp4Rny8x4zvWPUUSe0qnOmE539/z2/zQoBlp27u 33ws/VjrjE1q415UDJkm /PNtk5zb4Q/Pbz58/FsP3gvklLC8kwTbQvZYyiZywcVAJtiR36SmeJlxcoHm1ilZBUbiz2YPmMFroAQy YWKtWrQYOHBgZGWkeumj FUp1dAGFoz3PVrWea/IhylDNjFWAPbHaVzpJb8yn0toTXDIFLGEbNQZZwp+rKpABjsyLPAXfaEyPW6DA A88WbD7roZ4Em1WklLB3 7RIJ7Yn50uMu87lKGirSub4mq2sbXRAhORHETgyd+48E4dth5f7duPXGb6YrjJxYxQaUwlUeatzHGp/P xETwVQEQx4nrS1DiZzfB Zo2eWuXWIMEk0cnGnBIOJSW7vudZtTMhQyI58Ck1t/Hwm5hRhH0vDTyNQU331wyFlbpzmxKJO1/qVVsW xPuvT6Jn6CfkavLk5tUy x1hGfsWkWfv6fWPp9+/bzU3XdUhMt8TsbdQNcAZTTVLuqLi6Jrx8Ko6ZN80GCcdPotCAi909ggjGfULN Q5AN8OPCPd0OsggZr1m+ dt5bl1j0tNzVRhUmXylXiks//gfzhGJjCZYMqXx5XkXs8eo1WoGb/++67YRgOYdpP3sSHA7BCYjQLPvz YV311w69Vg7OdRMibxSd bx6w9RcDnqJ1/v/yT9wY360eJ8G+G7mKIp0Gpcf02540OUh6c1BylbU6SQRZZXl3OGVfKNCv+achkMoF IWJsHUdkyVxFgg3oQHA8 Y4NTod8CAtRuSmNTMT8vA9+EVi06q5a02mfCrklrc30901yIMvDCUz+lMsSkVPXkTUsQWOXgjYu09+Yn zpqiCsjNvYfEKzrQbHx8 TTFh4lkbiczJdJqZhYS9hqptGW8afG9rpnzgSCH8avvH3RYos1Pex+YtUoUKF/YT76AEyGZEH05LzWsR FQ2wIkL1x1AKjI9Vfi1f 34QqEYqBa4NwsYcLFeRiQqP/i7O7CPmwAjInVGp8s1xg/+uqrnJycQhJ5+fJlMbNDCFnkCACxsbGPHz8 4Tm7ybwNj0P8CnAWa4ix PcNasWbwkj4+SEaTE3sm8+vqacjRhNYUaNWoAAG8+B7InTitKxLIWLlHqr1WffjPDbNxj9RQmBTNs6zm 169GjB+8ggDYZi090AWo PH/2a0sUaQ5457477u+/tYMm2NFUEptEoft2ZXWISVQHginsCZEIUnb8lcFeuOt655qopnTp9FP9iMs5 cUiw9GbaeJiTXzW142Xt qoWgnjOmaE55pXV8UIxCgHCCfq966v9HbyrZZOuGd780/++89klNYVDuGPQHqGlkqKE7u3txVIcawL75 NR9WlSYMo4Ro9u+a1mp2 o6ddVz8ElOz41OdTm+tFj4K8J7bqMYFp7CTQ6yjLI7+Cj4XgxKoDOmPf2ArIBMxPSYe70scWaIcfh8IC xWib3yrp9QiU00K/3ily rUBPgqGyy1rgadIXX2twtVMxYX50zGUckAKW9V8G3QSRvGTTqsiV6VUtkyW/KydxPHEolae7L4vQFe2w EJQuu+s9H4W+ImTNnAgB TTw6tpaAMaaw2Uv2w3pLi2ad+mmTgb4EWGHWUbf7n1k5o1Kuh5yj92jKfxkZ/UQSWSVfinWiON3k1a4h +49atW/iAVUb0hNjZn1N ZmetpYmWNWtEGTfJ3uRlD49/Yjl0Ndhfq4Y8OesfdXhK3i8dA/Ypnmp5OnJ45z+nIYZEBp0qhmJaj3vk UgIVE1My7paLt440GrAq OB0m4xHQeUq7ISgCm9bU81fwDNig2cw4oCkQ8unl8gkQBORPKx/qss1v548+/FYlEPj4+vl8M7nfK79j tG2+syc/z58+vXLlichM HgJ9++mni1cm7saa+/v3n666zrIn0WxqZcsq1+/gpZmAqYW7lWFbGgRknf0L2Kd5ptTs1drykyvSaGl2 t0eoZcLMGF6jl3Lw8kIC /cJZPfJ390c8+/tFlkfGwIpuaMq9chcMyewPDFj6c3e53jgXSAF4KWoTBgRpeVDtuwoGqZsytQQBNRrO IbCi5M03bpxKXtkWcdFL u3bu//vrr/MNvqM0GxqMx3pmL7YhrCxRYSbNxrvfizHRe5dzcPrVYXuyiBRFI5KxONM4RmVYjY50hbd5 qENAVri77BFSTGf0pj78 dsLbCfGpwC+yIdFkYRl68lPPk4D/KnjQvVjy4IiDMnUcBIhfHqPPshQhZu0DYJtNUvmAgrLfbyZDAPEv TPmkTWoQmsRiMx9JAVpS CwmAwpYb/A55RS/l5f3ROLYXIXYxKFzEfEyCA></span></span></span>
</div><span style=font-size:12px><span style=font-family:[place],Helvetica,sans- serif>
<strong>Patient Name: </strong><span class=& quot;clinicalNoteMacroWysiwyg id=[id number] macroname=PatientNam e spantype=macro title=#PatientName>SHANELL MENDEZ</span>& lt;br><strong>MRN: </strong><span class=clinicalNoteMacroWysiwyg" id=[id number] macroname=PatientMRN spantype=macro title=#PatientMRN>[id number]</span>
<strong>Date of : </strong><span class=clinicalNoteMacroWysiwyg id=[id number]" macroname=PatientDateOfBirth spantype=macro title=#PatientDateOf >1985</span>
<strong>Date of Service: </strong><span class=clinicalNoteMacroWysiwyg id=[id number] macrona me=EffectiveDate spantype=macro title=#EffectiveDate>06/30/20 25</span></span></span>
<strong>Attending Physician: & nbsp;</strong><span class=clinicalNoteMacroWysiwyg id=[id number] macroname=AttendingPhysician spantype=macro title=#Attending Physician>Torsten Mederos (Medical Oncology)</span>
<strong>Referring Omayra kang:</strong> <span class=clinicalNoteMacroWysiwyg id=[id number] macroname=ReferringPhysician spantype=macro title=#Referr ingPhysician>Telma You MD</span>

<div style=text-align:center><span style=font-size:12px><span style=font-family:[place],Helvetica,sans- serif><strong>INITIAL HEMATOLOGY/MEDICAL ONCOLOGY CONSULTATION</strong ></span></span>

</div><span style=font-size:12px"><span style=font-family:[place],Helvetica,sans-serif><span style=font- size:12px><span style=font-family:[place],Helvetica,sans-serif></span& gt;</span><span class=clinicalNoteSectionVisible id=[id number] internalbreaksection=false originalname=Reason for Visit recognizec oncepts=true spantype=section suppressempty=false>Reason for Visit</span><ol> <li>DVT left leg. Left proximal femoral vein. 05/23/2025
</li> <li>Bilateral pulmonary embolism with acute cor pulmonale.
</li> <li>Suspected antiphospholipid syndrome.
</li></ol>
<span class=clinicalNoteSectionVisible id=[id number] internalbreaksection=false kalli ginalname=Assessment recognizeconcepts=true spantype=section sup pressempty=false>Assessment</span><ol> <li>Patient is a very pleasant 39-year-old lady referred by Dr. Vu, for a hematology consult due to recent history of DVT bilateral pulmonary embolism.
</li> <li>Patient reported that she has a Mirena coil for history of menorrhagia for few years. In March 2025 she was started on oral contraceptive pills in addition in form of Vidya, and Progestin. </li> <li>May 14, 2025 patient woke upin the middle of night with pain in her left calf she describes that pain as a charley horse.
</li> <li>May 18, 2025 patient presented to urgent care with complaints of chest tightness and heaviness. The symptoms were attributed to asthma patient was treated with a course of steroids. Patient describes her symptoms as chest tightness cough.
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 EMT brought her to the local ER in [facility]. Ultrasound Doppler showed nonocclusive DVT in the left proximal femoral vein there was additional DVT in one of the left peroneal vein negative for DVT in right lower extremity. CT pulmonary angiogram showed: Acute bilateral pulmonary embolism with prominent embolic burden. No focal lung infarction, infiltrate or pleural effusion. No pneumothorax. Enlarged pulmonary artery consistent with pulmonary artery hypertension. No sign of aneurysm ordissection in the thoracic aorta.
</li> <li>[facility] she required pressors on her way there due to hypotension. She was admitted to ICU. Patient was ad ministered tPA. Her echocardiogram showed severe RV dilatation moderate RV dysfunction. Vascular surgery was consulted patient was intubated and cannulated for [facility] ECMO.
</li> <li>05/28/2025 patient was discharged from hospital. During the ICU patient had gradually improving respiratory status. She was weaned off IV heparin and switched to apixaban 10 mg twice daily with plan to step down to 5 mg twice daily.
</li> <li>As per hospital records patient Antithrombin III protein C S and beta-2 glycoprotein were normal. Factor II and factor V Leiden gene mutations results were pe nding. <strong>However review of records available show factor II and factor V Leiden were checked and were negative patient's cardiolipin antibody was borderline positive lupus anticoagulant was detected. </strong>
</li><li>Patient now on apixaban 5 mg twice daily which she is tolerating well her breathing has improved. She denies any pain in her left leg.
</li></ol><span class=clinicalNoteSectionVisible id=[id number] internalb reaksection=false originalname=Plan recognizeconcepts=true spant ype=section suppressempty=false>Plan</span><ol> <li>I reviewed patient's hospital records she has a episode of life-threatening massive venous thromboembolic episode. Patient was ambulatory at the time of this incidence and her only risk factor was oral contraceptive pills.
</li> <li>I recommended we should repeat and complete her thrombophilia workup.
</li> <li>I explained that at patient's cardiolipin antibody was borderline positive and lupus anticoagulant was detected, which if confirmed would confirm the diagnosis of antiphospholipid syndrome.
</li> <li>I recommended we repeat some of these tests for a new baseline.
</li> <li><strong>I also recommended that patient should switch to warfarin due to possible concern of antiphospholipid syndrome. </strong> I advised her to start on warfarin 5 mg daily she will overlap that with apixaban we will have her come in next week to check INR and chromogenic factor X. Once therapeutic shecan stop apixaban.
</li> <li>Will plan to repeat antiphospholipid syndrome labs in 3 months.
</li> <li>Patient likely will need lifelong anticoagulation.
</li> <li>Patient has already stopped oralcontraceptive pills I recommend that she discuss with Dr. You to remove her Mirenacoil. Patient patient may need hysterectomy eventually given history of endometriosis and of pelvic symptoms and menorrhagia. </li> <li>Plan follow-up in 3 months with repeat labs.
</li></ol>
<span style=font- size:12px><span style=font-family:[place],Helvetica,sans-serif><span class=clinicalNoteSectionVisible id=[id number] internalbreaksection=false originalname=Advanced Care Planning recog nizeconcepts=true spantype=section suppressempty=true>Advanced Care Planning</span></span></span>
Not discussed at this visit.
<span class=clinicalNoteSectionVisible id=[id number] inte rnalbreaksection=false originalname=Pain Plan This Visit recognizeconcepts=& quot;true spantype=section suppressempty=false>Pain Scale on Today's Visit</span>
<span class=clinicalNoteMacroWysiwyg id=macro [id number] macroname=PatientPainScale parameters=LookBackDays:0,Value IfNull:Not recorded on today spantype=macro title=#PatientPainScale(LookBack Days:0,ValueIfNull:Not recorded on today's visit)>0</span>
<span clas s=clinicalNoteSectionVisible id=[id number] internalbreaksecti on=false originalname=Pain Plan This Visit recognizeconcepts=true" spantype=section suppressempty=false>Pain Plan on Today's Visit< /span>
<span class=clinicalNotDunlap Memorial HospitalcroWysiwyg id=macro_[id number] macroname=PatientPainCarePlan parameters=LookBackDays:0,ShowComments:Yes ,ValueIfNull:No pain plan indicated for today spantype=macro title=#PatientP ainCarePlan(LookBackDays:0,ShowComments:Yes,ValueIfNull:No pain plan indicated for today's visit)>No pain plan indicated for today's visit</span><span style=font-size:12px><span style=font-family:[place],Helvetica,sans-serif>
<span style=font- size:12px><span style=font-family:[place],Helvetica,sans-serif"><span style=font-size:12px><span style=font-family:[place],Helvetica,sans- serif><span style=font-size:12px><span style=font-family:[place],Helvetica,sans-serif><span style=font-family:[place]><span class=&qu ot;clinicalNoteSectionVisible id=[id number] internalbreaksection="false originalname=Smoking Status recognizeconcepts=true spantype="section suppressempty=true>Smoking Status</span>
Smoking Status: <span class=clinicalNoteMacroWysiwyg id=[id number] macroname=PatientSmokingStatus parameters=ValueIfNull:Not recorded. spantype="macro title=#PatientSmokingStatus(ValueIfNull:Not recorded.)>Smoking Tobacco : Never smoker; Smokeless Tobacco : Never used smokeless tobacco; Vaping : Never vaped</span></span></span></span></span></span></span></span></spa n></span>

<span style=font-size:12px><span style=&q uot;font-family:[place],Helvetica,sans-serif><span style=font-size:12px>&lt ;span style=font-family:[place],Helvetica,sans-serif><span class=clinicalNoteS ectionVisible id=[id number] internalbreaksection=false o riginalname=History of Present Illness recognizeconcepts=true spantype=&quot ;section suppressempty=false>History of Present Illness</span></span&g t;</span></span></span>
<span style=font-size:12px><span style=font-family:[place],Helvetica,sans-serif><ol> <li>Patient reported that she has a Mirena coil for history of menorrhagia for few years. In March 2025 she was started on oral contraceptive pills in addition in form of Vidya, and Progestin. </li> <li>May 14, 2025 patient woke up in the middle of night with pain in her left calf she describes that pain as a charley horse.
</li> <li>May 18, 2025 patient presented to urgent care with complaints of chest tightness and heaviness. The symptoms were attributedto asthma patient was treated with a course of steroids. Patient describes her symptoms as chest tightness cough.
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 EMT brought her to the local ER in [facility]. &nbsp ;Ultrasound Doppler showed nonocclusive DVT in the left proximal femoral vein there was additional DVT in one of the left peroneal vein negative for DVT in right lower extremity. CT pulmonary angiogram showed: Acute bilateral pulmonary embolism with prominent embolic burden. No focal lung infarction, infiltrate or pleural effusion. No pneumothorax. Enlarged pulmonary artery consistent with pulmonary artery hypertension. No sign of aneurysm or dissection in the thoracic aorta.
</li> <li>Patient was transferred to [facility] via [facility]evac helicopter she required pressors on her way there due to hypotension. She was admitted to ICU. Patient was administered tPA. Her echocardiogram showed severe RV dilatation moderate RV dysfunction. Vascular surgery was consulted patient was intubated and cannulated for VA ECMO.
</li> <li>05/28/2025 patient was discharged from hospital. During the ICU patient had gradually improving respiratory status. She was weaned off IV heparin and switched to apixaban 10 mg twice daily with plan to step down to 5 mg twice daily.
</li> <li>As per hospital records patient Antithrombin III protein C S and beta-2 glycoprotein were normal. Factor II and factor V Leiden gene mutations results were pending. <strong>However review of records available show factor II and factor V Leiden were checked and were negative patient's cardiolipin antibody was borderline positive lupus anticoagulant was detected. </strong>
</li> <li>Patient now on apixaban 5 mg twice daily which she is tolerating well her breathing has improved. She denies any pain in her left leg. </li></ol></span></span>

<span class=clinicalNoteSectionVisible id=[id number] internalbreaksection=false originalname=Physical Exam" recognizeconcepts=true spantype=section suppressempty=false">Review of Systems</span>
A comprehensive review of systems was performed and the pertinent positives and negatives can be found in the History of Present Illness.
<span style=font-size:12px><span style=font-family:[place],Helvetica,sans-serif"><span class=clinicalNoteSectionVisible id=[id number] internalbreaksection=false originalname=Past Medical History recognizeconcep ts=true spantype=section suppressempty=false>Past Medical and Surgical History</span></span></span>
<span style=font-size:12px><span style=font-family:[place],Helvetica,sans-serif>She does not smoke cigarettes. She uses a Mirena IUD and norethindrone as well as oral contraceptive pills to treat endometriosis.</span></span>
Also past medical history significant for asthma.
Since hospital discharge admission patient has stopped eating oral contraceptive pills she still has the Mirena coil.

<span style=font-size:12px><span style=font-family:[place],Helvetica,sans-serif><span class=clinicalNoteSectionVisible id=[id number] internalbreaksection=false originalname=Current Medications recognize concepts=true spantype=section suppressempty=false>Current Me dications</span>
<span class=clinicalNoteMacroWysiwyg id=macro_[id number] macroname=CurrentMedicationsTable spantype=macro title =#CurrentMedicationsTable><table border=1 style=width:100%> <tbody> <tr> <td align=left colspan=2>Medication List</td> </tr> <tr> <th align=left>Name</th> <th align="left>Date</th> </tr> <tr> <td width=60%>Albuterol HFA Inhaler 90 mcg/actuation</td> <td width=40%>06/30/2025</td> </tr> <tr> <td width=60%>Eliquis (Apixaban Oral)</td> <td width="40%>06/30/2025</td> </tr> <tr> <td width=60%>Prozac (Fluoxetine Oral)</td> <td width=40%>06/30/2025</td> </tr> <tr> <td width=60%>Miscellaneous Drug</td> <td width=40%>06/30/2025</td> </tr> <tr> <td width=60%>Ondansetron Oral</td> <td width=40%>06/30/2025</td> </tr> <tr> <td width=60%>Dulera (Mometasone- Formoterol HFA Inhaler 200 mcg-5 mcg/actuation)</td> <td wid th=40%>06/30/2025</td> </tr> <tr> <td width=60%>Multivitamins Oral Tablet</td> <td width=40%>06/30/2025</td> </tr> </tbody></table></span></span></span>
<span style=font-size:12px><span style=font-family:[place],Helvetica,sans-serif><span class=clinicalNoteSectionVisible id=[id number] internalbreak section=false originalname=Allergies recognizeconcepts=true span type=section suppressempty=false>Allergies</span>
<span class=clinicalNoteMacroWysiwyg id=[id number] macroname=A llergyTable spantype=macro title=#AllergyTable>No known medication allergies</span></span></span>
<span style=font-size:12px><span style=font-family:[place],Helvetica,sans-serif><span class=clinica lNoteSectionVisible id=[id number] internalbreaksection=false& quot; originalname=Family History recognizeconcepts=true spantype=section suppressempty=false>Family History</span></span></span>&l t;br>Family/Hematologic History: Her sister had 6 miscarriages but no episodes of VTE. Her father and multiple members of his family have had heart attacks. She does not have any children.
Patient was one of her cousins was found to have factor V Leiden.
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
Patient works for a [employer].
She does not smoke

<span style=font-size:12px><span style=&q uot;font-family:[place],Helvetica,sans-serif><span class=clinicalNoteSectionVisible" id=[id number] internalbreaksection=false originalname="Vital Signs and Pain Scale recognizeconcepts=true spantype=section suppressempty=false>Vital Signs</span>
<span class=clinicalNoteMacroWysiwyg id=[id number] macroname=PatientVitalSigns parameters=LookBackDays:1 spantype=macro title=#PatientVitalSigns(Look BackDays:1)>Blood pressure: 120/82, Pulse: 77, Temperature: 97.1 F, Respirations: 16, O2 sat: 100%, Pain Scale: 0, Height: 67.5 in, Weight: 220.4 lb, BSA: 2.12, BMI: 34.01 kg/m2</span></span></span>
<span style=font- size:12px><span style="font-family:[place],Helvetica,sans-serif><span style=font-size:12px><span style=font-family:[place],Helvetica,sans-serif>Immunizations: <span class=c linicalNoteMagabeoWysiwyg id=[id number] macroname=Immunizations&qu ot; parameters=ValueIfNull:Not recorded. spantype=macro title=#Immuniz ations(ValueIfNull:Not recorded.)>Covid-19 vaccine (Moderna) (06/30/2025), Patient declined/rejected</span>
<span class=clinicalNoteMacroWysiwyg id=macro_[id number] macroname=PatientOxygenSat parameters=Label:Oxygen Sats,LookBackDays:All spantype=macro title=#PatientOxygenSat(Label:Oxygen Sats,LookBackDays:All)>Oxygen Sats 100%</span></span></span></span></span>
<span class=clinicalNoteSectionVisible id=[id number]" internalbreaksection=false originalname=Performance Status recognizeco ncepts=true spantype=section suppressempty=true>Performance Status ECOG or Karnofsky</span>
ECOG: <span class=clinicalNotDunlap Memorial HospitalJamieysiwyg" id=[id number] macroname=ECOGStatus parameters=ValueIfNull:Not recorded. spantype=macro title=#ECOGStatus(ValueIfNull:Not recorded.)>Not recorded.</span>
Karnofsky: <span class=clinicalNotDunlap Memorial Hospitalcrysiwyg id=[id number] macroname=KarnofskyStatus parameters=&q uot;ValueIfNull:Not recorded spantype=macro title=#KarnofskyStatus(ValueIfNu ll:Not recorded)>Not recorded</span>

<span class=clinical NoteSectionVisible id=[id number] internalbreaksection=false&q uot; originalname=Physical Exam recognizeconcepts=true spantype=section suppressempty=true>Physical Exam</span>
Pleasant 39-year-old lady appears comfortable no acute distress ECOG performance score 1
HEENT examination normal
Lungs clear to auscultation no wheezing or rhonchi
Abdomen soft nontender no organomegaly
Extremities no edema no tenderness
<span class=clinicalNoteSectionVisible id=[id number] internalbreaksection=false originalname=Genetics/Molecular/Biomarkers recognizeconcepts=true spantype=section suppressempty=false>Genetics/Molecular/Biomarkers</span>

<span class=clinicalNoteSectionInvisible id=[id number] internalbreaksection=false originalname=Additional Labs, Imaging and Other Studies recognizeconcepts=true spantype=section suppressempty=tr ue>Additional Labs, Imaging and Other Studies</span>

<span clas s=clinicalNoteSectionVisible id=[id number] internalbreaksecti on=false originalname=Lab Data recognizeconcepts=true spantype=& quot;section suppressempty=true>Lab Results</span>
<span clas s=clinicalNoteMacroWysiwyg id=[id number] macroname=RecentL abResultsTable parameters=OptionalFlowsheetCategory:CBC,Label:CBC spantype=m acro title=#RecentLabResultsTable(OptionalFlowsheetCategory:CBC,Label:CBC)>CBC& lt;table border=1 style=width:100%> <tbody> <tr> <th align=left>Lab Results</th> <td>06/30/2025</td> <td>05/28/2025</td> <td>05/24/2025</td> <td>05/23/2025</td> </tr> <tr> <th align=left> CBC</th> <td>
</td> <td>
</td> <td>
</td> <td>
</td> </tr> <tr> <td> WBC x 10^3/uL</td> <td>7.9</td> <td>
</td> <td>
</td> <td>
</td> </tr> <tr> <td> RBC x 10^6 /uL</td> <td>4.39</td> <td>
</td> <td>
</td> <td>
</td> </tr> <tr> <td> NRBC % /100 wbc</td> <td>0.0</td> <td>
</td> &l t;td>
</td> <td>
</td> </tr> <tr> <td> HGB g/dL</td> <td>12.2</td> <td>
</td> <td>
</td> <td>
</td> </tr> <tr> <td> HCT %</td> <td>38.5</td> <td>
</td> <td>
</td> <td>
</td> </tr> <tr> <td> MCV fL</td> <td>87.7</td> <td>
</td> <td>
</td> <td>
</td> </tr> <tr> <td> MCH pg</td> <td>27.8</td> <td>
</td> <td>
</td> <td>
</td> </tr> <tr> <td> MCHC g/dL</td> <td>31.7</td> <td>
</td> <td>
</td> <td>
</td> </tr> <tr> <td> RDW %</td> <td>13.20</td> <td>
</td> <td>
</td> <td>
</td> </tr> <tr> <td> PLT x 10^3/uL</td> <td>512 (H)</td> <td>
</td> <td>
</td> <td>
</td> </tr> <tr> <td> MPV fL</td> <td>9.3 (L)</td> <td>
</td> <td>
</td> <td>
</td> </tr> <tr> <td> Patricia %</td> <td>55.4</td> <td>
</td> <td>
</td> <td>
</td> </tr> <tr> <td> LY%</td> <td>35.0</td> <td>
</td> <td>
</td> <td>
</td> </tr> <tr> <td> MO %</td> <td>7.4</td> <td>
</td> <td>
</td> <td>
</td> </tr> <tr> <td> EO %</td> <td>1.4</td> <td>
</td> <td>
</td> <td>
</td> </tr> <tr> <td>&a mp;nbsp; IG %</td> <td>0.4</td> <td>
</td> <td>
</td> <td>
</td> </tr> <tr> <td> Patricia # (ANC) x 10^3/uL</td> <td>4.4</td> <td>
</td> <td>
</td> <td>
</td> </tr> <tr> <td> BA %</td> <td>0.4</td> <td>
</td> <td>
</td> <td>
</td> </tr> <tr> <td> MO #x 10^3/uL</td> <td>0.6</td> <td>
</td> <td>
</td> <td>
</td> </tr> <tr> <td> EO # x 10^3/uL</td> <td>0.1</td> <td>
</td> <td>
</td> <td>
</td> </tr> <tr> <td&gt ; BA # x 10^3/uL</td> <td>0.0</td> <td>
</td> <td>
</td> <td>
</td> </tr> <tr> <td> IG # x 10^3/uL</td> <td>0.03</td> <td>
</td> <td>
</td> <td>
</td> </tr> <tr> <td> LY # x 10^3/uL</td> <td>2.8</td> <td>
</td> <td>
</td> <td>
</td> </tr> </tbody></table></span>
<span class=clinicalNoteMacryscompass memorial healthcare id=[id number] macronam e=RecentLabResultsTable parameters=OptionalFlowsheetCategory:Chemistries,Label:Chemistries spantype=macro title=#RecentLabResultsTable(OptionalFlowsheetCatego ry:Chemistries,Label:Chemistries)></span>
<span class=clinicalNoteM acryscompass memorial healthcare id=[id number] macroname=RecentLabResultsTable parameters=OptionalFlowsheetCategory:Tumor Markers,Label:Tumor Markers spantype=macro title=#RecentLabResultsTable(OptionalFlowsheetCategory:Tumor Markers,Label:Tumor Markers)></span>
<span class=clinicalNoteMacryscompass memorial healthcare id=[id number] macroname=RecentLabResultsTable parameters=OptionalFlowsheetCategory:Anemia Labs,Label:Anemia Results spantype=macro title=#RecentLabResultsTable(OptionalFlowsheetCategory:Anemia Labs,Label:Anemia Results)></span></span></span>

<span class=clinicalNoteSectionVisible id=[id number] internalbreaksection=false originalname=Surveys/Consents/Other Discussions recognizeconcepts=true spantype=section" suppressempty=true>Surveys/Consents/Other Discussions</span>
<br& gt;
<hr><span style=font-size:12px><span style=font-family :[place],Helvetica,sans-serif>
Thank you for allowing me to see <span class="clinicalNoteMacroWysiwyg id=[id number] macroname=PatientName" spantype=macro title=#PatientName>SHANELL MENDEZ</span> inconsult.</span></span>

<div><strong>Torsten Mederos MD</ strong>
<span class=clinicalNoteMacroWysiwyg id=[id number] macroname=LocationPhoneNumber parameters=Label:Phone: spantype="macro title=#LocationPhoneNumber(Label:Phone: )> </span>
<span class=clinicalNoteMacroWysiwyg id=[id number]" macroname=LocationFaxNumber parameters=Label:Fax: spantype=macro" title=#LocationFaxNumber(Label:Fax: )> </span>

CC: <span class=clinicalNoteMacroWysiwyg id=[id number]" macroname=NoteRecipients spantype=macro title=#NoteRecipients&quot ;>FAX
Telma You MD (Referring)
Prieto Hyman MD</span>
< /div><div>
</div>

<div><span class=eSignSignature>Electronically signed by Torsten COLVIN 06/30/2025 12:54 CDT</span></div></body></html>
--- OUTSIDE RECORDS SUMMARY | 2025-09-07 13:40 | XMS_ITS | CCD ---
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 d 06/30 CBC w/ auto diff Patricia # (ANC) K/uL 1.6 6.6 4.4 FINAL Torsten Gatito alcaraz [place] [facility] , [address] [place] [id number] 0 06/30 CBC w/ auto diff IG % % 0.0 0.5 0.4 FINAL Torsten Gatito alcaraz [place] [facility] , [address] [place] [id number] 0 06/30 CBC w/ auto diff MO # K/uL 0.2 1.3 0.6 FINAL Torsten Gatito [place] [facility] , [address] [place] [id number] 0 06/30 CBC w/ auto diff MCV fL 80.0 104.0 87.7 FINAL Torsten Gatito [place] [facility] , [address] [place] [phone] 0 06/30 CBC w/ auto diff IG # K/uL 0.0 0.03 0.03 FINAL Torsten Gatito [place] [facility] , [address] [place] [id number] 0 06/30 CBC w/ auto diff MO % % 6.0 15.0 7.4 FINAL Torsten Gatito [place] [facility] , [address] [place] [id number] 0 06/30 CBC w/ auto diff EO # K/uL 0.0 0.6 0.1 FINAL Torsten Gatito [place] [facility] , [address] [place] [id number] 0 06/30 CBC w/ auto diff EO % % 0.0 7.0 1.4 FINAL Torsten Mederos [place] [facility] , [address] [place] [id number] 0 06/30 CBC w/ auto diff RBC M/uL 3.9 5.1 4.39 FINAL Torsten Mederos [place] [facility] , [address] [place] [id number] 0 06/30 CBC w/ auto diff MPV fL 9.5 13.4 9.3 Low FINAL Torsten Mederos [place] [facility] , [address] [place] [id number] 0 06/30 CBC w/ auto diff BA % % 0.0 2.0 0.4 FINAL Torsten Mederos [place] [facility] , [address] [place] [id number] 0 06/30 CBC w/ auto diff BA # K/uL 0.0 0.2 0.0 FINAL Torsten Mederos [place] [facility] , [address] [place] [id number] 0 06/30 CBC w/ auto diff HGB g/dL 11.3 15.2 12.2 FINAL Torsten Gatito [place] [facility] , [address] [place] [id number] 0 06/30 CBC w/ auto diff MCHC g/dL 30.0 35.0 31.7 FINAL Torsten Gatito [place] [facility] , [address] [place] [id number] 0 06/30 CBC w/ auto diff HCT % 35.0 48.0 38.5 FINAL Torsten Mederos [place] [facility] , [address] [place] [id number] 0 06/30 CBC w/ auto diff WBC K/uL 3.0 8.9 7.9 FINAL Torsten Mederos [place] [facility] , [address] [place] [id number] 0 06/30 CBC w/ auto diff PLT K/uL 113.0 364.0 512 High FINAL Torsten Mederos [place] [facility] , [address] [place] [id number] 0 06/30 CBC w/ auto diff RDW % 11.4 16.1 13.20 FINAL Torsten Mederos [place] [facility] , [address] [place] [id number] 0 06/30 CBC w/ auto diff LY % % 14.0 41.0 35.0 FINAL Torsten Mederos [place] [facility] , [address] [place] [id number] 0 06/30 CBC w/ auto diff LY # K/uL 0.4 3.6 2.8 FINAL Torsten Mederos [place] [facility] , [address] [place] [id number] 0 06/30 CBC w/ auto diff MCH pg 26.0 35.0 27.8 FINAL Torsten Mederos [place] [facility] , [address] [place] [id number] 0 06/30 CBC w/ auto diff NRBC % #/100W BC 0.0 0.2 0.0 FINAL Torsten Mederos [place] [facility] , [address] [place] [id number] 0 06/30 CBC w/ auto diff Patricia % % 43.0 74.0 55.4 FINAL Torsten Mederos [place] [facility] , [address] [place] [id number] 0 06/30 CMP ALT/S GPT U/L 0.0 34.0 32 FINAL Torsten Mederos * [place] [facility] [place] [facility] , [address] [facility] [id number] 0 06/30 CMP Gluco se mg/dL 74.0 100.0 74 FINAL Torsten Mederos * [facility] , [address] [facility] [id number] 0 06/30 CMP Total prote in g/dL 6.3 8.2 6.7 FINAL Torsten Mederos * [facility] , [address] [facility] [id number] 0 06/30 CMP AST/S GOT U/L 14.0 36.0 62 High FINAL Torsten Mederos * [facility] , [address] [facility] [id number] 0 06/30 CMP Bilir ubin, total mg/dL 0.2 1.3 0.2 FINAL Torsten Mederos * [facility] , [address] [facility] [id number] 0 06/30 CMP Sodiu m mmol/L 137.0 145.0 137 FINAL Torsten Mederos * [facility] , [address] [facility] [id number] 0 06/30 CMP Alkal ine phosp hatas e U/L 36.0 125.0 60 FINAL Torsten Mederos * [facility] , [address] [facility] [id number] 0 06/30 CMP Calci um mg/dL 8.4 10.2 8.7 FINAL Torsten Mederos * [facility] , [address] [facility] [id number] 0 06/30 CMP GFR estim ate ml/min /1.73m ^2 94.3 GFR is calculate d using the CKD-EPI equation. FINAL Torsten Mederos * [facility] , [facility] [facility] [address] [id number] 0 06/30 CMP CO2 mmol/L 22.0 30.0 [...] hour stability window. FINAL Torsten Mederos * [facility] , [facility] [address] [id number] 0 06/30 CMP Chlor simone mmol/L 96.0 107.0 104 FINAL Torsten Mederos * [facility] , [facility] [address] [id number] 0 06/30 CMP BUN mg/dL 7.0 17.0 8.0 FINAL Torsten Mederos * [facility] , [facility] [address] [id number] 0 06/30 CMP Creat inine mg/dL 0.66 1.25 0.80 FINAL Torsten Mederos * [facility] , [address] [facility] [address] [id number] 0 06/30 CMP Album in g/dL 3.5 5.0 3.8 FINAL Torsten Mederos * [facility] , [facility] [address] [id number] 0 06/30 CMP Potas sium mmol/L 3.5 5.1 4.1 FINAL Torsten Mederos * [facility] , [facility] [address] [id number] 0 06/30 Lupus antic oagul ant panel DRVVT SCREE N sec 40 FINAL Torsten Ng [employer], [facility] [address] [place] [id number] 4 06/30 Lupus antic oagul ant panel PTT-L A SCREE N sec 32 FINAL Torsten Gatito * MICAELA, [facility] [address] [place] [id number] 4 06/30 Lupus antic oagul ant panel LUPUS ANTIC OAGUL ANT SEE NOTE A Lupus Anticoagu lant is not detected. For more informati on on this test, go to:http:/ /educatio nPartSimple/faq/ [email or web address](T his link is being provided for informati onal/educ ational purposes only.)--- --------- --------- --------- --------- --------- --------T his interpret ation is based on thefollow ing test results: FINAL Torsten Gatito Ng [employer], [facility] [address] [place] [id number] 4 06/30 Prote in S activ ity [...] increased thromboti c risk. FINAL Torsten Gatito HINOJOSA, [facility] [address] [place] [id number] 4 06/30 Antit hromb in III activ [...] with an increased thromboti c risk. FINAL [facility] * [facility], [facility] [address] [facility] [id number] 4 08/29 PT INR panel INR 0.8 1.2 1.3% High In patients with lupus anticoagu lant or other anti-phos pholipid antibodie s, theINR may be falsely elevated. For such patients, it is generally preferabl e tomonitor chromogen ic factor X activity, which is not affected by theseanti bodies.Th is test should not be performed on patients with hematocri t <20% or >55% [facility] INR panel PT INR lab resul t note This specime n was collect ed shelly rojas. FINAL [facility] , [address] [facility] [id number] 0 06/30 CARDI OLIPI N AB (IGM) MPL-U/ mL <2.0 Value Interpret ation---- - --------- -----< 20.0 Antibody not detected> or = 20.0 Antibody detectedT he antiphosp holipid antibody syndrome (APS) is aclinical -patholog ic correlati on that includes aclinical event (e.g. arterial or venous thrombosi s,pregnan cy morbidity ) and persisten t positivea ntiphosph olipid antibodie s (IgM, IgG Cardiolip in wgh6COI antibodie s greater than the 99th percentil e; ora lupus anticoagu lant). Internati onal consensus guideline s for APS suggest waiting at least 12 weeksbefo re retesting to confirm antibody persisten ce.The Systemic Lupus Internati onal Collaborheather Andre cs immunolog ical classific ation criteria forsystem ic lupus erythemat osus (SLE) include testing forisotyp e IgA, which has yet to be incorpora aries intoAPS criteria. Low level antiphosp holipid antibodie smay sometimes be detected in the setting of infection ,drug therapy or aging.For additiona l informati on, please refer tohttp:// education .Hepa Wash/faq/F AQ109(Thi s link is being provided for informati onal/educ ational purposes only.) FINAL Torsten Mederos Hernandez [employer], [employer] [facility] [place] [address] [facility] [id number] 4 06/30 CARDI OLIPI N AB (IGG) GPL-U/ mL <2.0 Value Interpret ation---- - --------- -----< 20.0 Antibody not detected> or = 20.0 Antibody detected FINAL Torsten Mederos Hernandez [employer] [address] [facility] [id number] 4 06/30 Beta 2 glyco prote in [...] olipid antibodie s (IgM, IgG Cardiolip in [id number] antibodie s greater than the 99th percentil e; ora lupus anticoagu lant). Internati onal consensus guideline s for APS suggest waiting at least 12 weeksbefo re retesting to confirm antibody persisten ce.The Systemic Lupus Internati onal Collabora tingClini immunolog ical classific ation criteria forsystem ic lupus erythemat osus (SLE) include testing forisotyp e IgA, which has yet to be incorpora aries intoAPS criteria. Low level antiphosp holipid antibodie smay sometimes be detected in the setting of infection ,drug therapy or aging.For additiona l informati on, please refer tohttp:// [employer]/faq/F AQ109(Thi s link is being provided for informati onal/educ ational purposes only.) FINAL Torsten Mederos * MICAELA [facility] [address] [facility] [id number] 4 06/30 Beta 2 glyco prote in [...] olipid antibodie s (IgM, IgG Cardiolip in [id number] antibodie s greater than the 99th percentil e; ora lupus anticoagu lant). Internati onal consensus guideline s for APS suggest waiting at least 12 weeksbefo re retesting to confirm antibody persisten ce.The Systemic Lupus Internati onal Collabora tingClini immunolog ical classific ation criteria forsystem ic lupus erythemat osus (SLE) include testing forisotyp e IgA, which has yet to be incorpora aries intoAPS criteria. Low level antiphosp holipid antibodie smay sometimes be detected in the setting of infection ,drug therapy or aging.For additiona l informati on, please refer tohttp:// education HobbyTalk/faq/F AQ109(Thi s link is being provided for informati onal/educ ational purposes only.) FINAL Torsten Mederos * MICAELA [facility] [address] [facility] [place] [id number] 4 06/30 Beta 2 glyco prote in [...] olipid antibodie s (IgM, IgG Cardiolip in wiw5XIX antibodie s greater than the 99th percentil [...] l informati on, please refer tohttp:// education .Hepa Wash/faq/F AQ109(Thi s link is being provided for informati onal/educ ational purposes only.) FINAL Torsten Mederos * Micaela [facility] [place] [address] [facility] [place] [id number] 4 06/30 Prote in C activ ity [...] ns may cause falseelev ations. FINAL Torsten Mederos * [facility], [facility] [address] [facility] [id number] 4 Medications Date Name Route Dose Frequency Instructions Start Date End Date Status Fill Status Indication 06/30 Ondanse kate Oral PRN Dose unknown active 06/30 Albuter ol HFA Inhaler 90 mcg/act uation PRN active 06/30 Multivi tamins Oral Tablet QD active 06/30 Fluoxet ine Oral QD active 06/30 Apixaba n Oral BID stopped 06/30 Mometas one-For moterol HFA Inhaler 200 [...] Status 07/06/2025 Physician Order Chart check Ordered 09/13/2025 Physician Order Chart check Factor X Ordered 09/30/2025 Physician Order RTC MD Ordered Social History Date Name Value 06/30/2025 Smoking Status Never smoker 07/31/2025 Sex Female Gender Identity Identifies as fe male Visits Date Type Value 09/28/2025 OV 20 MIN 09/28/2025 LAB 15 MIN Vital Signs Date Type Value 06/30/2025 Body Temperature 97.10 06/30/2025 Heart Beat 77.00 06/30/2025 Respiratory Rate 16.00 06/30/2025 Oxygen Saturation 100.00 06/30/2025 BSA 2.12 06/30/2025 Pain Scale 0.00 06/30/2025 Weight 220.40 06/30/2025 Height 67.50 06/30/2025 BMI 34.01 06/30/2025 Intravascular Systolic 120 06/30/2025 Intravascular Diastolic 82 Notes Section * Med Onc Consult <html><head></head><body><div style=text-align:center><span style=font- size:9px></span><span style=font-size:12px><span style=font-family:Canaan,Helvetica,sans-serif><span class=clinicalNote MacroWysiwyg id=[id number] macroname=PracticeLetterhead spa ntype=macro title=#PracticeLetterhead><img src=data:image/png;ba se64,kXSUIc0GCnlJWGPNDWwJLvKBCGCJAPReQOIDIZD1Ry+VFNXSPYXTQPFFYV1XPZASuSEAPz7iZSH RgxbNFDXKZXx9J36qYdB jx3NxRphgaIOIZIAWHG10dMHtl5R4BZOkC6ryHIRep09uDDegBDWYYR0bBRUNTUqrRFeqZJG2JnVukoa lFEHsMx6nQGr6vK1prRM 5LEQ2yJgtolp3NPAlQY2zFDpkfbylBIJyKeYhpRl7rYT3mw6oGZWcWsDkYM9BPAPjraDyMd0dMJRlYUP sXctfCDS4ZEG2FTH2XTU nARUzKjD9LsRvPMSpDyQnMxBpTAUgAGUpIAQvEfA3amRbIeLPNwG0mRygpjwcIUD2Xut2yRK1Eg92y4y btvDdx1UcTvH9CJvqSUP eEmIsjbTvBQS8moOwcT9axxYdHrA5lmZqTwAqt3IfjJO0aW3oIJKmLmshTs02rU9xJuA0uZbaajg0lMT 7Ecj9zUM8Nl5xlp8rMI9 rGO2mr17hdXNjOcGyAK0cNTbugW3uGsYwDNWuwIRpEn3czZWwfW5dneehNLHeKYmddILqbAOuNJ2oZzS cnV0xosI7dNhexF2ffR2 xGOYbmIGuQy8phfViGLPjPxXyR89oD9Aou4Prb3lpbK4nYmHvSxJ5aAkfxcz8xTCQEU3mrPJ6sIaeK40 aBkDlq7MmCnJgzJ54AHI bBV7dF65jSxGlrD9kmbV8r9KVqjF2Zka0jIP0Az8jcf5mHT3zVE4om70dvQHuQiMfXT1oVTqgOY8VJAZ vyWOoVWP7XX34CmXxwV3 fPmDhGNV0b6FMp15uWWGCGM6uGNNTaL01c0Mij3EoKjMeIEAlSGLziQ90z4ZrQNBtkH4bDuQwTZW1RFH vzDY3TsViGaTjVXYvQgd FAMQ5Otc8TkOqLIP0MUByNQysdTpVh0AmZegMWUHbPIRyTCWuWFRjNWO7GVJfFuTlWOO0DfOlIjG7jDW 7GPA4RDUcfBBANDVrHEL hJSSfXXVoLEH7WLJfGoDxSUR7MwPhZgZeNpotl3HhBHA0WbssHZpeA8ZcQlFwoVcmmU8ygF1aZpPfrA2 eQQ0rQG0aUkSnhV5eTJ5 0HD7ilQVjU7PEJY0liJ7zXfosZXv2VNEoHyQdED2eBPNcCCI4AhzvDYa1AU66KeI3QZRuSaWlWHTwFSz xmL3NMbKyW7VaBS58NOX 2ZgfrxK3knAF3QNGuLwZfUGXyAitmFh37DZC3MRn0OzijROUqHcMcC2X4AISkPmS5iMJFEZgZzmkptG0 hzDDxJ6PoHU68EAJ2Tdw unZ4zrTS0VKJuGbGxLENqZutzCj73NRP8YBq4LtcjGHFbPvIjW5Q8WAHbOx2yOCKtw5Xyc9vcfKdFu6C 9mQNznUPmQ0WcuI2shn2 gPHJkZjpCYWc+RKjvQTC4uSb+hJ7eHoKaRYo9QpG9P6D4UGXeSKCwOYS4CNVoUueGDCQ1YxBCRhLyEBu xaoOhWkojXgR9F4SiBlb CYWc+RSkbvZmtkT5riL4eCjVnB5EuIH69ZB5uMTP0t4EqEsT2tQ2eBK71YXqhvL6dfP9zMNCoYknXNBD +MIjtEJC5zHcoo5BScwG 1HHC7qZ7uFDLmyxOhdBYrErQdhKL3rKywuyR7ZZ6aQPwSOZY1oUUbiMgeUnunWkLoBEK0BZV6HPKnOKP gUC25OAr8CWHaGEvhIIK ePGW8VePnc3THxtJ1j0wiyj4nAiTkNc2oGB6qG3SxFHscQNssPR8lCskkIIEki6OHeiU0v71utFgmtpY BA7TnyH3yOONmAqNqLVk drP2epQ8eEZSiOrJkGU1qP4nfbE1vyXouBh7oVF1bHSP8H7ZaJkN4M5vaoF9KYakbu1Vekqp+IDwvcmR cGlJeq3UxrCC1sG4fAtD 2Y2MiHtvWXHI+RKnyjKt5cKRaGOBlMeZ9N9leOZSsOGDkTY8pOCBbEc6+zuK4DHCBBmKAUVEEiYiujCV gFEcXwN/K+tW1nTG0IRN obsWDOx/wRHGlhCzkEMGaPeyasa3CIKigHQYjEGokY5zk/SL1li5KdcocHnDDozJ/kf67p72Ktc1+nXn zZpZgWRYwGAymNEAghEq 0ESyUCxWleIUnSKcNhUNSrHAaSCceEDlpJAUGcyPIF0CUrSjdvuUfZJGWfMWkRYcdwN8cEuC+H9ZDtRn /wljKsZiT5cNMfmEMf8y KRC5eed84HXentMHPe/vypN0iSZ6ABvWg9cbMGd8l1oz9YMSjUHSZIxTGmsKrxnPKax4i/zBpUmBgYEm BNKT2wZsO12k7c+futCm XD1C7HCj0YsPZ9kAUrk7CANDsAEGExXiTkErM9dtSDbduHmd5qJVKDrdt3gTNXBahVw5W23JJQc24K7P XjemVdv9l09dcDdMckbZ Q9eWPPOIQEy9ZHcQiNDrCwYTVi+LEEumob7+Z+wBPFN9xFIvRMuaAu8Kt+mOaI2Blz6GQl5jp+8ef/Kr S3XnPpTRzeqCSDHJzFKN MOMVmkmc26/oLf/5BkMSEiRPH//REpYRqV8jIBgyjxtc+9bpXj+9stJwbNd6t47B2FdTO03ILAGUZxNi bDVh4uUzKYKk0unW7fG1 6ip2MieP5B3TUG/AtbTqu46//S47pTNuDnL6E9uzOucEzezzOVOLbi6qybm67utiUWd718lQ/v/9nKSz illXCAVmyUQFuFZ4Chw7 rZGc9nnQvaPaoxf0kpeGbmO+/v7//mMZxka0vFQ+48+pRe8vhd2IUrqr5cTewF+zetnvJnEaNm/yybGl pPhUXgmugHydEHWUut0x WlY2OVsJ5/XPTRq9O+w7J96CZMlMjYoaPa5GQz3kfotE0QbCBOGTRBBSVILWcAUKUNExzOGs8JLtENlc TAq0KR5bOA57gQWCx9eY Fv/lalXNhGjdstH2EIqp4oMEalfx+quuY3AgDAPdVDGVwBFotCZ8MYtGTEjTQZckiS6XQgTq7a+3EMf9 +lHkT4rggo18rpWLatt2 Sq3Mk6VbDaffVp0Ht94H/byQkAc5tUKdxZVdzyOz8/5cxaf3CoUxb0wQi+8EgjhFQP2slZgCqIKWCk/+ FHfqGJA6kwy37/+K5W2d Qms1YRSI2YNuoZcZwu97Za1G8adZDGwUBdjw9+LbDFk31iplaFxziLtCKSAAbIng8Ggo6smwUNHEj/m1 ogVY5L5vsf7173pHWJaf QKKdRLf9mtqc0nh16epSZfCebWUIrFIHUA2RdZ5nY3TmzgXmEaChtVNNXsSAYHoCrU0tbr9DDxKqv1jG 4gFNwQpd7yhYf3CT8z20 4bpIT0ElerAl7wUs84RH2ip59y+Tj4UDqj/9+OyQ48is57n915x7Hm6XdjWZox0/fth1/vGs5rK54dUy rQRgMQgihJYsX+/v6eXt 7gtnmc1qUzxOZOszbfyaPkWhW5yjunrW0ITtvkHXNBKu5pANfQzOQwyjiwGGFaLAt3KbNZ+GP+o4e6+n y1wTQBopedFpPwvL2fI2 cXd3Fegm14lqAcykEv7aA8Uc2dxLo7C8hFk5jdAjUzmFj7M14pnnEC4ZKMFNQiwqrVKRm2HzTdQWnF+7 SxYsFicXHx/v4vHol9Rj sWMwmQx7pTTn85crP7ufAyezKHzzYKdrc44UxtjfvWHLqUrrtSF0RgYGsOXi253YMOKvml68B8PGqCeW 3bzVHy7l1d9Tz4ro8Pdd I+W+AFRYGIYS+GTmqnI+qa9ewtY1Cej+M5GmAIwDE6GEZwzgCzI1RUoD4eNlLl8+rr5y3V8fumU5gx6J IjGDyZajx175wX+dXfyb dSwCKqwV80IwkVw2pYWacmFbM+a+Ar1lFMUJaFgt8ozjMtiMsSa519V1TbUOdIVbiaFSrek5joL2Aep5 iEAiTo4eXLZTMTaMCdRr 7RPCwHeKUuIk301+HRz9+URCVNv1wO1XW5vv0VeReUKWw5W4N776FZfwV4B63A3PWDGZASuUJWjK92LW KM36rdmnM3scPhmyEmYE qWvFfu96mxh6hnpiXjB25RoA6DlgLkk0Kto2uVjFg7d7qw2voCP7xVKT22gqZe7mOPse4VpbbowVzBOR /TGJNBQa98Crba95zc57 QwHWSqV7aJJqY2otfM/4gvV4/d13vVCXVHh4Yk8SrB+9Iq1FH/3L67KDlABNv5cmYLEmkl710u3/nj1i /YYPKVSqHnAspSKMBgFA w6GYgl1Fwe27KiA/R/MLBCgsDqSmpDMPUq1+jSCqq1Za20hOkMtbRapKMEty7s3pN+/OmfLkAnlk7d2o 5KmDYmVixBquARn4EDWH xGk2e0RA9/fcwd34eD9+9ARDDLgF3xQCemLQFl8iHMio7tkJMTiHIqT0e2II4WDQgOWY72CBpUEqHvig NnHUKWKvyAw02Rz5+/fT z3rDAttj6xdtnkDSdax6or94RmD0LJf6+4Glm243HKhHsmchTAXHBI+I8SLHFSHOmGtALyZxICVal2KR Wa6zRRaz2r4e7bKr3uKi dSSWxhNKFhat0nu65ShaoAl9mtp9twus2hXahTNfxhWgiYfeKxt2hrRD+vWCFhQGKokiStHdwBACTHzF B/LJkAuKW2xh+eeLVO9e eos3MBkbsxBgPohOLCHgiGOsW9NBq0hEA7tCRyhKvqwiW7UWEMKEDKDOVIqCRaQFiSXNkTowCRKC6osC rCPgJsFFOgboMnsXE3h9 B1tb+4UpHRGe8tDZgkoCs0GMmhLgxi2rAjKQfUqjCzK/zQAJSXxe1InikGcrWtFHoy1KaG25f+fLli5c wIi1aWEixlG4Vty1k7oQ bQnsBAPw9IvsagLaGshckjcZwXhReZbRXGOpcibo0nrp51tmZ85jnDBERE4Sztt7FxCokU+4/aNuyVfn x4Ux0z61tYugm2ewEETT AwCJAfFuNICQSiVAo/NT5nDu0brEMKkcwIUXXg8sSPO0FPSsoU9+zQc8m2B0ef4Uyacljl7NHht/diSz gbBDdf2lFYewtxLsgl/A IKl/Bf+H8uCVcZGFsKNYH77e2L1AovN13j/y5e+W9Gs7oB+ekG00qkfLBRL2i4t654IdMknHBGIGXxfc vZpAm4cig9ud44GTnf8g aXiyQKtA6kPCL3feJCKGNgAKpgnnYoHwQG51+fcmRaklvytluno8j6lG+/S/jXpbxKtOle/yyDv2aGQh i6DsjH5zTfkirrLpKCUz j3wg8HS5/UC1WV2dQ7/NRPHvTaFLZPIp9ZKIS192mDNf70aEbX0jDcuzPaBfQmlWUdqL/Uz36/K9zpw5 3790/f/ZsyJmzi+bNW79 4oqi02SlRNd3u9HuUpVbOunnK6PumZsw/upE4JNNOJF+io8t6+yVy6rTcpIejjbeA1gacm27Z4dyp7B2 ++igGC1eP1lM3WJBHQI6 ZsIB1fv8PHcTZeJJRkUvZ/wkDKpwfP2k+rd0GROd78FAhwvUjQoiqMTqyQGtLKOGPDgsk6OtAXLxmc4k xY1u7AuutRj7rp/cr+/v 69SVVRZh/NpcWsQIq03/PJT5rB3J5pyZVNnn037HDLigNS6gWDYNcEBFgU84AhLJwqD0tGkt2k+imzet u0wuCk6fB6wIT5l7Zlwb EGA0EfylhTHfDOtk1jIiwp7OcbmmB2+klqdWXzuDTQeU5Lij45hSs9+9bp8Ed7HHi9aOQWA6VX8ptpx6 wUD1CTSILYsVoVKTUcui BMeGsRPXstQulJy2urTyFsm41qilhENgPDNLGiRGxAhsDFT0MA/zxKEhys9NBu9tLye0C7AtpWlt7O60 e5c3hH/FnOYQIskWrFnl 3XZo97UaVykrIhVzq2pd3h3Nd9uwJdEkHPrqOjm3zPmn6uEF0Ib742nuYic15zEcGvDl6hFtjGkmW/OV y/715nl62xElqmtytJj9 AhegQE8om828WrTqyNSQ/U0PeKOFizqx6kj8smqUOZ/11yyxLe0tW21oZr/3MNahXdfhYGptY254oDQb FK3oZXrowe1O2L7GPIT1 hNb3Gh9mE9Gj6ifF791uKc9hEZREcsl7uLSlJqqTobE+PTsinGe8pKNd93not+jbX2fcU1v7qAbnkD7d 0HHAAHEJv/wRodEZFVqZ Uy4n5i6xuxPrLl1puXYNpw3P+1z3Ee0AOMP7Bhuban7KxeCpc3QzhCDBN+23C3QACxHYbDghsJCFbXgn HPkaT0YxYd3wiEWU6ztO lXYWYEgArrC+AvKsno4kEkgjTylnqv+5JsavKQQs0Xewo+FfX5IsSj8mAvDPS/ftXHXizB5vm5XS0fbd FuB6SST2eQfSg4B//OYR 5hsJKAfbrdflclNeka4KrDtqQVWHrJILpqFpJzEIZANn2XkTizZcn75Q7uH3PHqNZn5fNuv+6taQrEvO 6tDqsqaKpF0hLrVTU4Mn USkCwWcDFm5SZq0Yf5auveyrTAKtGG5Ok0ISaUYcCQcy1L0GDI29Pag3+T7jRqCI1Rf8kP/muwWYUY9y x850jSYa1qHzJaZkgNFF ZEgNM9Ua5Kr6+GlA0ArgJv8MEfVVg72j9T9hl7fg27v1HRs1032NXOpvms6LE7asDcu+Eo4m8YeL54iF +V6TxITyYOPN0RharorN faoEnD+0UGVkkqPzFBXKltp3+Wvv1PYDSBPk9UmL88p/0SD03yErWBusHbpV24LFAxnWv5jgavxXDIDa Ymd0J6dAXo20Os6ZEJuF bFqH8BUSqgD6bjJkM8Vtj2HWyGvlfrY3b6mMuV+mvj3KhkzB28ukPDfbJg5nyIOlxoET2+3pd+7yJjTm xf46CYOiskgPLBn7IeBl XY8uAPXVsl93abMEpBq4RDSGRjWRSS/Zfcy7ZGhcACdAiKdq7it/KcFXBhav3vd4Lr9IqfL1WFDgptCS /3KKFjqASCz65uFRnRdD 5wArry+UrdAYYnX4gpQT60qxU7+bl1BOarkNqmGcUMsX4z2xJhlQQxq5iw/b0QN+NzmMZQiyR/OOdQdO v7BCmxvuIpVUoZpfP9P0 emn24iyWWod4QphgEmog8ByCLbiv5D5ALVh5Ds935N/7LnTR7x+8+hhTABO2oOToMOjjS596LarLT98h wivAweCIGfUsURfl5h7v DPkMOL/jo80ZUhesPe10h0c4zgSFzmSbsOITcIaKo2nScRZnNDfQzbSJVXXndCWoqlPsQrrsgNcEQcLC HhhcCigWWqhKiq2zwAwj z8Kefvw5lH40mhCfb1gQY4xTfyKvRCv9a1OcEV1RCPqCsRiVDVh7lqHcAuZZ6Dm1KeMCWz9H7yjR4d0b oiUbd1a/0Euo7LrYc2Bz ZMIXZizQEMR9h+gYrIDxkloxYbtzTNgUgfJ9Unkf2tPWeEitcRVcFYFKuMNNJp0CKvAfC645mYFRrE6U uK7ymMU7BtEL+IJRKpU6 mJosvuzeOGrAsZojMFKQjg5eepSqFTOsAdvDykg3pIWIIR6Z6Ym50L6ZM/yz6q/I0kXlmnTV1IxiaLkr C3rW7aMlSazOT78u9/2K 3t4N0haWJCXHufK2F1wR+FbAOVQShJZPpRSYpOVcli5VRAsiB15KNCgn43mCVpZowObPZELdLgyQ5wb6 kzygU8S1valdfULGYYNZ PsvM2Cc5FYbXUVC1EIHBOYRnuHJ8UnIuWzuZ3NEd9F7pl3qFrqblYSHb1QWNSyGlROOMNy2Ug1Xex9Dg LwwiMqOWbxxGygh2oHZi qDpja4q4cAbzRFBoc4Yu4JnUXEE456QsZT66HPaeJhl2VjjrQlgBQ+fPyLONZcpWK+kfewpKUPTlZP2A oTOUVRhWvdYmnvqGE60E WF2I3049LZ0t5KF/j62++ebvDVb0aDMhazmRgefgFzCHYZJpYjzKYN3c77Mkehv5gRpmHLNgiw8FblJk 1W90YJqLNIuJYBsibf1Z YfEyEBVEzC7jlvylknzSF53fgW8pJRQ5ulcLbXZxooqZ9N/XFEaShkSZa1DhPVl1Mp9RPx97bPd45XdA ttmMH+ed+F0kN19l0d/A 93JO0cS1Fo4PDTM/PkTuWcas/Axa3q04O462cLC+pcf9tcABfMy6aiehncVKXDylogUToEa2uIY5vEhC yMcwuI6d24rt6fpdBQwX pYvmEHjhE2ZeoKSGc+XOtJmyMjlCYEBdYy9NR8J8jv20FIDmwSrwV17JNKZuXnNmUFG4RvDqMJM46r77 XHMYwldY63Qz1r8ig7Z1 UZHIkySDE/iwC0MfbD0kBHCQounkwAsKAtga9IDK2EMHlTxBt3lAlLY24g+Pp+CHxDL4ogZXHzpLLt5U sZF5bABK/QX8ZQf8Zd1F Feaw3CUqEPzFmBDGz6ajasL/2exsKq8DtXWQRwwdb3i4gv59mpDzzJVccIWo256GJ5+Nw7YYCeazgGUK x+jzDQFh6C1TO1+7d6tY w7QMWuA0IWCB1oBSh0eCKp01eNs/YiUU7NGPxwKQVNPFs2zvGWqm4IswiQKYPLR8WtVKg/Zq1rdl/JIF QbPRjtVpPUJZmr7//5wB JWg1GVaMd4l21I9QjMo5w0fdLnxUJKneq/by68AF1jhdiaK6QoKKXYm9IN056nwEkg35VrWibW5D7vIK +R3dhiIoRFKP/SfPmuuy losasYn5XHrAbhHAfEwXozL74g3lHkTttw0HTuwInbFeam0Lqv6Mf/2HuJ4tONGXFZAIJMEV/NYuQAyS Fp8EZoZ9inC4PJwqafgV hkemNRiMCBoHeYJD7+Eys5Hj78w67D97OkF6AfMv+ma5BxPbcYd9fsv9jJ4k7mZHT8ttEFUmig931f+D 3ohTaX9c/Asncb1cHiGc snx2zUJh3nSsOXT8aJBNQCZNXWsY2j9EmHJFox4CQl1rvYwDMZ6EObBvvPfnmAV27Nl52NqBI8o8NurK wWb/7B5l7abCecRo1h2f zEIYpF058jRy0XnDw72cJtlpvgVyW90xRn8z/bIoSisblq7Qe0t2dd9l1KpOyVefaGUAgS9hyWS4Gr55 BLpnSLtJp1TY945U0w/D N5TBqQ8wpjssA8Ej/278MTBwXOv9Fecd5vT4A1gFFYdl6he9/J4qPOCawiCOBwpO5qyjrGwzAzwVm0Vj p5ts6yoonqFzyaGrBH7e NOODVynO8bLgPvxfl072v51qzBSK5/nmTjzNAWO4VWpFHTJZkv9ZpgyBn2T1YCgveh3o07+YLBU642yJ hsVzOIYLjPnZkkAOhVPb 2joB1354KTZtcJ0dn2ePo2W0hu6WbiIWzW1NLQCxRcUqjrUzcqCiwHkbmQfLDqnh/88/dPr6+QG20hFR UH0296hsuiHgDplM85+x w8DelNIdvMoqsu3sqrgRn7HK0X2QfiJEZDC5rx9JajFVEpG+p3DxspbcMibPB0904VQm9iBMB4mKsp4I Nbmkph9UlYTj36PLwwKY quP74bFd55kXt5xjSJZfQW9CBNBNqmyuYjEyc/jzbjEKEQe2U0Y+Nn/Y84OHubgqdeJYpcYWVa1Ir5Wp vvrmDCXDbLG78/ZJD9SC R3cYCCvYQd1kLKNR90Hts3A222FVvw7z4tW5vlMQhKrPpKGk6ui+eXhEnZrjHomyak3EsXbgglGhbW2m 0tl50Xve8ssorV6u6vCI wupRRI6OEueX44NaiFbiJLaVIiP2ze6sEwNx4PLEpiuN9yJNQlUNQfUUbKqRX5Qis2T69b1arwmpZupq ehXup0Gfvl9Xj4lwPUGw RYnqSMf7cEaWXDDDp9b5sak5GXNd+WEenqjpvX9MmDCAtZ1WcEOA5zqUM49jQ+t2wjbCJblcr7+YCwLP iCoPcqtwdP19aK6j/kPv yyse5XXqL9gFb5XV0c9T14skjrTEzA84LS1/CWsCUBrDCwkBiQgJBkpxYqtFpxBWr+6ZJnGz3WMvy3ux ywYtImvNJpqJ0WgXXPsP iN6kCy5wLU30jO4U97/sxjr//CBADwuPtibuXSxhrg6lPOTXsA8SovzMCzpWh+J2Ov0leVAT7cAl+0/T 8miuxPY5cXuGirKyswFT +KK8PLARZkkHqMeeGgesyDOCYe9EUyV3fLzKSDPOr9Qg0yQ3hVnUjVLJGJIlvQCNQivYVAyVrx6E2XIQ AOLjYd+oa21imKzuHHtq rQaxu7jTAZvF4/TgCfVbl1oYVciC3cdUXz2E4Cf5OoSS98x1AJRSFoZMOSNWy7szu1FIAsxjSwGQtFMV +7klHipXXVIci8Gt7vAh x78kZdFUNHoOCBGVXP2Qfre3qMKuy5GX1IyHppzDhNfVVpV6jIYYHLXeJHm6IdqSMiunLUIiV2rmJDeK ZS8UT97pg7ewsAKKCbDt w3Bz4Gjr+psuFqa1A1FD/CkRluniz6W8oUAKSYeK4QgWz0i31/nDoxAjXZ0ZEuEbXJtTHRwKiBFIgPDu zXkmFstoqNaOMcXa3TtS wnRJN0Gyal8txGMr2w2JUk3LV+UdXGNjpMqGNFVx8I+2oalSLGzvuafCcxOTzTz4IVLRTQSFGXAuhbKj hocZ2bmryRDTT7IGGUnH OzoVDxTurhju4BqmQnzLtvwbtSNyBlmReAU0g8714a4exoRutFsqqGzJbdjIIFKUXOzulhDVRUPnckSL rZDVcGnc6Q+wcKEcXwt6 BgxGsFC49B/cgnYaoXkfFckijfpc1/XQTjRroDthPW55cHrlfuI60+FFlhO5EWsJjCb3gVC04H0kkswv KepTpLpKqbh82C/dNLOn eOeH8qDOZx4gDHnFlSVM/Ie4myeh4lw5qtEYye7lQJsmvKWRJuFCFKzeGrZNq7EGn2NFvhs0BQxlDJ4G yLWYvY7o4DAt7HAr3ual 5EnU7OGguCUEbAbS5vGVciy4lzhws8Aaz9kmLDVmfW+uHRYYKxnXaIYWCeaMkYOKWNITGHLbcX8mcdjF fQIvOoFUjeLtCMRAkBPc leCx0M6qOrhYHucT2okblobBJuxnf02zGg9nPlYYJZCBzuAC0F6kVXiiexGPSHhxy9XbTRFrKSpuWrdb t3j3UYCV5GSy6c1qNr8N aDrA47bjO/KhCVffEPDD0nXRJ0huv6FzPuq9AEhGJkKpJQOSPKPKknkFQiezvnivkYAzmrlIqMH0SsJa XH0eJU4eBkHFifD6ckj8 q69fF9+/SosAq+lQvc8qAR94P/hAdLWxKadXl1R7SwmFa8BAjwxF5/JvkQpAWlXLkKM5yoXMARYC8RnZ /S31g/f9deUDXfEsXln5 q8Pqi2Ua8dsJGhRkQNBsCvdCm7bHJG0tlkPELBV91RFJXAsxZI3JLbKWbqtr5/Hx4N2i7d2+cFpnY8eo mYd51naE4uGjEj1R4h9k AKWZqjlh3jVLhz55+FaPXAfu++NdWWIEhAKyUu5T73EiR+hFKza19NQP+1fM3kZsYu+U9e/VEAqEg+bV 743i0c1dMRpEnpr9oQdQ iODX/R6kuSc3fjEOa51GJbOUiq9MEdsIlYtyJoXZyCARp7YmvblZeDM0skpRQ2maGEeso1za6dLLbTq4 3ZAXP8okAoMB+WaQ69zk hu0Je8KZ3Kaa/8nBa7yzNbIcPUUqg8rnSXJWfYL/Zq3DlOCbVyKYejx6vBtWuedbs0sPkTCBYIK8AJqh 3UyOXdPf13ce6c9f19VA SRwdvJdrBENbRmXsE0dd06+duy87WyoB6qWJYFwzaporNUtXxJ/9pe/pkrd1crV07z88uUGgjZULIBMr IRmLp5sdSDFBdNjhRVCu c+1TsikfToQmaYfv17zMHX7U8VVoPZJRgt2Jv/mpw1uCMFNFUEXJtZiAEZ36xQW46+BO11viCvbfz9P9 fQZrbojVifG2hIgvnx2j Dhy8aRrsFjL0+43Rsu+lY15EZfkxadji5Edn8/h0nDusWSlnISfRRt34SYrXje+Z+bG92TLhYSOVILy4 HWG4XCbQf+02YKdkIbw1 WcWKXIFCEVVs0NGIJStfvVfIG1aAGKMXBZdN//tUwp91nCGwTpwu2GE/HpFDLnuj4RO1lLN1gW+p1rFS gsa0WXtoxigzCDbAGbCP bo7HyueqmeHSX6BW2uW/jMwOhjDHinXefpGIkjidIuFqZsmCD4HVTXAHMAInuFsx9/Xu9MOgnq7T4caZ ORrGXmeEpu5S/t9az2hr 4im8RCpXpXFvhICE5mo4EjmNPYcKQttu5lHeJx/FSyBgArLAwFkQ/frz0l1+yb68GlyPCFeJKHTrdztO FldsBQZAaNaXKoXMySb2 DHYn0UryyxlSFNMNUhd9MDyGOiTWDEQNRYjHYeGF2MmvwnhkeobTgGPWeYrlDX2yX3e7L2HSScIh4wWD JKzJIrQYJBIgW+Pr5Tvj ko43vI0/3obZ2N1PRI7IErKgXTdc/IkJuHAXgpcGjMP3rPSWLkAZ3b6xtrZjHgr27xncmJivG0cqzhJM fEIZHmmrBuNIE2MQDlSa R1NOi7dn6vsFybudVsGml6VVlpvoFYJMZmetoLWaUd8bboty86guO8Cu2+bWJrVtieyLBeTIjPE3Pm9s P5Fu0IUdk0Qi5UYm7BMa XymXwc84S2cLkXXiJGM8v4iGW5MofzNtFWXMzI+fJI26M/gPguZfSJZCQTLqZGxQYFf9ZAMSxoYXmtCK 1xXoKYxWssDAfyYpfl/+ +/FeDt3/y9/MYF0/QaYqIQAsAIdfdq+jTTgZz9FV32f2QhkBqvRNs2aWzXZtOmoHdW8NYBE24Ro/hmz5 jhk4wWBu3vJEHJHzGWFT oJ8Uog6kls1ejqQx2Hzoo4xSp2AuXGxAacZF1rWLA7iNTPsOu9+ND5qoSUCJcaoHoXNJKkNqyGbwFOPI MdcToVNO2mY4zFgc8pvr 6b9m+Bqi99EDqF2XHlwPN5x+JeyxaK1vbocUdyBVijCFKJ7+wzJVguOTnWTETCNIMJeOyZ8Yh39Q6EWA Qrt4+c2kmicRSdNNdNly 2iqNK8u+i1+t/JkG4mt2/LQJBFFzASSsVWTjWXUjZxc6QSXpjcPAGwGWkhGyD+wjkY8ObRx1suYH/DHf v3Nn4+9hruEKFCh70xvF ABAkAVapWHThoUM/jeKoJc42O/X2gbhV3b1q9/iMd6Limde7U0xoBNKJrP461mt8wAYHGWlRK/CNghYX BYEoNuImOwWBKDVhhYTC TJuSXHVlIxcQJSJQIuai8JVEMeSDNCSgoWOAQMtMWIGpKtzIQVVMErfr1SZLXoZLAZIeuTTIQWgAJRDg RhaFYIGXArfs55M3/Y/7 tMAyj0+dNNyNBbDtfKhpYZ8Lb66LxB5nitoQzw7HcCPuIn3Ie6yh70fj1+/pKU2QQkPbnZCVobE5GWLX A5RP9zSxRAcujrIQKGNR xt8uP+c/x9Y53erre6gq5Q6xGfzdbYJ2MHQLYwl7ZrSm3rc4zDGa0JbOsc008loYNezt9yMjmXf8zsrk 6ehpvqDje6tVco3bX7+v BWn39pVKy5yIqdKzgxRz1rEuESPG3d3x1jYj66HYHQh+tan879l1Wc2xWFQItQcTM1tcoLl2i1bp3a5S g2CmNN784iuf4C23WANc 7FCDdi8mhXGNNkh9ZQnHvHv61fatVCGGqGsYUb7TtkIiuVEdD5UjizElw+agvheuBNIhMsCi24pHTedZ z6nQif4iVWUrSGuQznNi wxkAcSz8SpKwYJ38wd2RbyI/pNiegCVaK7G7jqOCRs0a4ITfFgWJPaoFo3BZbWj3JUU4ccbYbEhUO9+7 e69ur9+RDnssHZYkh2Fq nanmgBpLLEN1sGo613EyUCpH3+PV+ggxip0agzfmUBlDQi3EI7xKKos7q8zKW6b741LMUS7IOB/V6/ZG Dh/zK+heb9r7qdr5fWQf /w5mPdRQLf6dfvNVT3Y++6dS5c+Hyo7/5ekGCDzIMnq9+prKG6CbGL6jyVAKPjUJT3YlyC89/Q6eO/G5 iNvNDqpgZb9WyfiJuExw uZyvKm8UA2MUrnNZyarLpaFgxCIaSfKjJYw+PHVOcWFOmTeO/aJ+bm/vj+LtrlSiKd5HF0XDnLu1af/6 cygfb8s73nVjm51Y04GC Q25GH5TcvUc3orFQ/Ln/z+g2/3X/eSLgTAneX9d4qpT7c58hqeTG/r/faH2LZ12/xI0h4Ni86SoIO7vi Qr6Y9WcBoi4pw1WYNwMX CrAo/e/PyEoPm6gl6Wd0zJc5zYoIxeCcRJjV1kMEDiOVOLAYOlJgyo7jjWq21tR8vDyo2eZhXJSn7ffR G3kZTvQKYf8v5/ElFRUZ XZ76m1eBvlSmyOdITj4r6Y+EeCygGhIf8qdFHu8XYGe2uhGAx+oRSbWTEsUgBFO0y4pjlocYai8RrL0J f3zCvkXzmv9tjJiQKReU MHX5ECwSJb4bh6pHVQXSZqOOq10XALnJDLM9+vYm30Zx8LMFgOTa5ngp4bMxbIkwpJf7+JPovE7BYZM2 96aUAE4NlMrlsGbF5oDm Mgt917+0w6lFAibhTkg2g/dlF442OGbdIBfyS3Wn0WUvoC4FBQJ9tv2HaQEamxrj4uW9Qbcwa9IUQ39F Bu695iKDYta3PfhuYqon +4W3eIb8Rq9/f/tI41tOJNej6lFcXFHfJwtq13YOIwzTecFaXeXenunuLYYMan/2kuRuvqrv9NHXvspz +mq0770UdCJ+NWhMeHvb g/e2cEwbXpDSUn8w5sj0l+Rgab5HsPKV9ciqYPZdrSfZwgJkqXOxLoLWV5soCRjBblzwFizGSWw6q6fw AfoVNwam4upYHuza8upg GWC4jMUpC2Rx4Ij5tOwy0e/siXelzPW3VnZTh5+nnhLml6bRqrRO1QMLSGLkgAZSbAV7VfrAOaSGqTMX i31OKqXGnF4otpBNRw/r 8cwNZEm6IVxs3qtGRc4fbjBDYzAyddNFNOlNi1mj4c3oudWi2XlHo8hOz0ukd8tigNW+fx3AOPVScRQE BOLxf7ky1OhHuvb7DKn9 GjTJlypg/vSOb3LgD6hZy6ds+wj7NLf52P5RvYOYxdMW452ygnnQP4f9h+j6i5PBdrrgNP7ciPsIkVWv yc3O/vebZz103/0oBCI7 iyo5bW2fvGFDTXY6y+9tHRQbItIPASUxRl2mcQeag9+GlP7IqRKONt8Z/1aBUmSk2qfBqVUowr10ged8 4oNycnMiIyGtXrwqFwqv Mn55sHBSe25kOK/7Ytr1v/359+r1ZNIvulMTIY5xVcOYKTaEkG8Vit6gVdwz0+6oNUl5Gf4MfM7cHAHt S2MNVTgQk6dGYxAsLbeh gseh2eVWJiWfTvIP+/S6vbxfz9hAP6UHxJYkCct82AozKFaKBdd34p1xlIXGyCw/euZOcnDxpyuRvvvv OnuagspI6c4wd1NZdt87 /sVhcUFE/uLZNOofNJc61BxMB0p5+xO4vbIA6Y1bYcSVSMXw1cNMgThjoDgDMWFNMdvKe9hxEpFMP4DD x4+p1a/MMBQun2Wg5rf8 +HeHDFk5taDn/3sd0Al6nFkvkfPZNtalTRkbDrmiH8Nr2rh2VL0rqHuciUs53YCjuLDYlPANp9isVI0E YldNj6nxXoh7rP98KGfw ArLJV9tMb2g8qBFg4qYYEkbEwLV6hYlc/f/dgZC94QhVKyb25LPsf2sTX7kl37+aNm+yk7Wo51aQxNOm xWBz/Kk1znNwqK15o8SH c5WUlgsleMaC9yq8+MKRwgIfANA3eEEw33ksz2DHsjMqj0R63a52ttgx8w96JZKzZKqch7NRk70wqDl5 ftre3H/XNN/C+I5aId82 4n0cnpOqrM0kZx8QWoB5GHyVTJn39s4QL8uH5vz6n+/v6+fc7Zm7RETTqDb5rYw6PmndQig55dvZhyjg TL+as13fm4RQjNap8WMK hmJkIhJOxHzaiy4c44JhFd7Jdzwc0E1/Twg5NFKnJC94ldzmP+3IJP2Zrevr9Is9w3JoOiGEH37ZKg4i SFeR6lYtiA37Nvt6hB3d eP/f4+/pt37rN/OCjhw/3ha321u3gODQS2RSj6Ofv8/j7+u3Y/kf+0N07d/r7+xQl8XoZeMu3M2FzKfc Wq//y5Uvzg+YRhJZ84Fb KCOSbAzxqlbpnt+2n165dlHc7gdgr8rJ0XWmXrO/j6zJZIH231ZSF8Avzasw7bMKKOlRCBlad7nVwN0Q 01nmNeAu08zMk34eOtIC ff/utv6/f/7p4Kh77rpIRAJ7iwD38RnF7txXyb6yLYYOyY/NiJHuan5C3c/Zsf1+/7l25fSe6wuLKkVP f1Qry9/ULqFotMzOzIDG fGDOmXjj1fP/Yn8d5NOmQlVB19RbQqAbKq7iumv/favBZ1azzlroDQjFElMa47mH2tXU++snf12/GTz9 ZHN+2dStf+I728yPh7GV jxyqW84+PhLj84j+rEvsRHab15iRregSxljlV1Mt0coHHLKoi2jb3tbMGDA7va01yMdN7uGh5jkWW6Kq 37KUpfDBetdHvClHC30J E6htdxOlQnWgILVCC6wsoG/i2kgU+Kb9d7s1HlVnSeqW3QqnPZbGDCq3q5++e84rxtwLVm1SoFcSt05q 802DGRDCv65BU0LAP2uj opp3ULjfRrOaC124WV1jO1RiC/QcO/Ln179FTjdTAJ/VwpPLUQHBu0qSXl6Ujr8eo8VlpVJaawsJQUTM OFoqnjBqXMC7Xv5OFP8d gX/4H9x+wKvMRpKamxr+JN+36+IOdZMoq1z2pw2Ek+R3Qn0qmN34lEG9Tn3gTsyVnCdiKx57gPqtu0fx lrKf8maYMs0gSurr3/rb sf94lr46qt/btWErpGctI3oO9dPvQfy57dSJmPSO5JpVyy2PLfHl40eleyj9MEiVpElpbsepgtNeWWQS N6wfrQXAClIh/AQpBqVS XBGqu4dRzZSo6q7npTR0/cyHAWl9kt6if8K2tAj3UH2/XvHWhR26cdeNRZf8DZjkb9hfEf+fN9/L2zm8 PAUbcMO6vm/Mk0m75Mmw NJy24HUeF2Qr6pzR+Ih8z+blbj+4rbbo70HUW/v2l6Tmva99of/niQViUgUPB5i6UyBn9x+Z5SmXf/v2 +ehxSOT8jFtjs/fr8MmK s7KpOfmyP5Xa1Z6vD7qn9+fFTtSzL2L0PwMyfnhClS5sTaqsUZfKWGuVjbYCr3uuVMvhh1rz4prrRZmv SBUhailNgB74hmd7bZFf RHNbutNWvXZqXaVBd5Nne003MquYh7627n8gDb7VFIt3xHJbsjMIl47ougDc8N4iF0k+DBNQMrFe/vtU sbt+65eFZhteYYdeuJSY mKHYWKqKtOY8esninUC5+IDAjHzZKk43ngbdvLJWKXOxNgvY1EkwHglVgQrrlhyP16giaB3r8/9yZswA waOgQk3+PBd4+Ya7qc45 PQ8t0gwgDVPORWGDQ2XGRF0MUFP3+lOEIwga1m0/7QOPQERNANKKtMFZAdDJkIDkLXqiGJE9+ZEQkTdO Fb34lXBJL52eNPmjZmZt /z37x/EV+bJyXfL8kvpHT+r7kSMgm0AjeFH972coEgg4mTaLzJ0+odyh64vqcJDS0113dpTEViaCXE2t vE9GpSG1vARXiwXV38bI 195Q3o7+/evWqX//+V6KkSGsl6z1lmMylMecRo7yFrqgT1/fN8mW/vp0MoVEqXDGS7SZd/RTD9awUzdd /LbQlCUNgWL3tdbBOgAT IsO3jrUdUbBTL/lklTm6eeJv6TAO4uSeV/07qTMvbHISG4uCNMGW8y8/IsvBS9ij9WL1+flJUcIcO+U3 PSxWjRUk3vUPl9vnXA/b qFx5pE83j5kKnXcliZnlmEyl6/Z/ToWBrG7Qx16MX9o7nLIm04cEHrywpggQvRNA+1LDHA2OHUVhrc1Z 8St+CXwnh0Npd2PdsDJG tVo/9/ueZiFePJUkkU1Z0I2HYc9u8fBJoveZulutiO8xLdOxhWCo8t6yqyp8CNYAycRtko/EWHmNg8eb VEwAuXrhw6+RW40ZxDkX +9P31s7vZCLSztWKgCnoOLgx7M57I2Yn129lzja+6Z/sh2uoT2X6iFpbDb43Lzone05Af1JkRkaJGPW+ /oeO48Fkf3ClC574YUEu xpoLai0z970/hT/IL8sLg0+rVr//PslHSEw2yMXXaCio9vK6JrJozXKSIdXvPjq32bh0dvAuAGa2n2NF 6oVC4+rd1/LsZlkTjJ97 7oAWiMmspg75FMATpumMBHuibMUkzBlhRZXlSP/g59HvtmLvd74jJRxdNroOg2QSSP/lt/tVXCPUbNOA 3Th4/zr4b+PunyMzMTEx IrN+shX0MJ34pe/yj2PE4Lq+HhcSlWMZCM9Is/hnGXjFWhkD8U2+A02q7x47h+Ob1m0k//RWEZ1mIOzz z9gdX2s23J//mDQD4+vn 6+AA3LIDjerj37w/PGRkZ/WzDTPRK7m0i+TmZIol0qBV/wsEDb++hwvYKTRCKtKw2Sy+EhmZkZJgHGY3 IJ6rN6Ch2VyMYFzUYs9S 6ljo0SaKz4Cfto8jhiKCz1b0uGs0gnyxmTBu3QetHOxdy9HrbzkyUFXVQ/fmMQd9oa1QWId5tfMX8yDu PSxaK/f7gH+3GTZrMmDk ZGOSO4byiR5MO4kFWjUfAIh4cn5xg2k/bH0f9NBRG0E3zjYbUcD67lxnC3Nf/dgnUfsGXBYGgLZzWs2T 6pcp4g6UrH6dikA1kicp faC4R8RJ26CiBQNzQQtzw/Pj4+jV41BpX3Oh4k0D/l2uxOmVHBcnBMLmwHGFq9hfFNDJXGfReNfjdOnB yV/cpEjBvkulhTc3OPo1 YZXOIOBaUGtljVk5NsqE+/USpreubFvQJz1tt9SsqypmPzVt7LGAn99H5NgDbchr6+uxj8i126USHF0D ukq2vxC9FWFb9W98qb8C pnpmtdwAAiYmJr1+/WhTbKYjpvro1ZxKMW5ImAq/hoSu7OWoMwODuU9y0uka2oN0akDXyzM4qxF/AwIH 6JdTde9kSeFx14Miz9lR sefOPTvZDGTRkcP+EHfNjFvS84iGJX3XJ91gnZ9jmEXMZz7Ybw39yWA0MnSGR0SrXDypd6+GHceMNRoP VDoWJ+f3biQr8rQPBp/X n6Veph5le1ZA6ac44tvLD4sl4kjwJdw1uFcYjxN3kGvXlAo4q/4lJGG97pg8lp3idLbp9xdx89TMkzj7 +ahP7IZy6TMaBjR8rRze CBGQoN3uKhIrsS61SANExIj8pU62qXGthseZCOtlFqOZNkRqfCGmHs92DbqsQuuakZ3Ce59PRNWpDBe8 2Y4jcX94oFilU6DVPOJH I30nrOBoCaAsPyMbUudVCYZurhSNe/Oiaqb70TPjdk9Sr6JEtXrHq2iEioIeSxI4vUwsesl40/d56GJ4 PCUlPS+M4bv/efYOHDvn POrPJxh7rh7kBUCNMpMeUU7Q0AOo6/9dn+MiRABD/8k4NDOZ+qGNSoWLFPn3/9/1TWb7rK4sOsbLvKu+ Agl6TcWdwXvv5k8qlrhf jsA6vo7k+c9FVjsDts0pBOOllztSlL9FwLeDU2o4xMLWx4FeKoRfWGMj55RnyvzLkIXmuGFyh+S369UW rHpdsh8yy1b3/+lYQjo6 Pv33ge82sOYx8m9rbELID/1cg+GArG9+kY7ZjIVF/ruM/wFAHZmRmgCjtLhlcTTCnYEKhb79ppeI5d+m Da38VlpVn6LMo3vTlfHT oWr0gJKcZdaPZ/jETSvPH6Mtht4jQs52pReF8SMyg0FxYpx301FR9VeYnJvsa7zs81TdC21KmDwtUZc6 sFLG91VyF1x0YLUwyXtG BvwVuyn18pfSdmwyyGSbiSQ3ID+nq5CL3Q/mateApX75hJgnqd/2hQFdDSM5pAXw6qfs+82GFoLV9DmV c5oqiqS2QgOycSFWie8p x/OzY0GjFRNdAA2jptODOgg2uBhBtKA5ui/L4ib+mya5sw70xC4/mZH9Av/7I55kaJqVGy5voQnCVOYK MjWwWKj8xS6gAeXPUxJE YUmb6OBq8gISzpsuTzXbi/At1TD0dXmVlwH7QyGobmqTJmJqcngJkYspbVxaA1AevMhTyNEMDrw7iqbo yvh+yyTHAaDQaGaNlTID nz57/rpsWqgZFL77igNqoorQMd/+yaNGzZ8/iUj7lEiscJu64pdxxhUCSxjTe+Rvqkvil6j6Ek/v27F2 6+JfuPXuYDzN/BB/3XnF 3ey695698tg18zrjokt/nKoAC0DzLp3Fjhngz0JJhGmXK1Ai2/hduE6KKCUBYWiJLaraNAOuRETxdsdX ZwE5oqb4iy9+QDRZ8K7b /7VRg3qRf2F6GfypTcKjgPgcp3efdyNIkpu8B+kzyimGEYNPQcLbFMUk82lOg5+3x2s1lOdwNO7vIjzt zJ37qPbEVVlJXqeXKoLe dit/Oyc6+hpJt0nOlyn345wLuMxaoERDrSk5aFgz9WGCwDzXZod2TJAqEAbLJ67esTHzgdT0OkBnbuqw 7nxytHr79uHnvBv52NfO rkUibwughgcrujiwhWQLYvXNlMCbwCsOCUNzioyEzXZ6ck87gvmNe14HRovKK6nEyzPcn18QDfy2xtwY a39au8/Gap1yib3xsrCh 3AQChUFjx/IxP1ETsWQ3V4v2g2s481IVZKBcm0+fPBw8Z+yII50e3hrRqGG6MquECSQCY0IX1BFSGwhi IQWJ2KHM87omkq8hr+9s 9aiH8EZ27a8liNiWHb6tRGfK9b0AwNtfUto08h9/aFaswrw2vxd5kTXwkhDozVGAC98PxBwjvd8Wh5TM +tE5kN4aM/8iNznPowMH WjnR0IwvVBWxC7d+3Xz/e+oY0AfuZkMz/S3rjbi2z7Gcgk1rO099nwEzrlNRGtqLh8SsWWXW02Jdc/1U b/f019Mg0T4VNhSb5r+Y ROTeulfY23ukvICDiRFARlwbx01656XhK2iN+bp939dPUwXcp0VgTkqW2fWbe/+3D7rYlD+GSBWEwGCx 38Hwl9qw3p3sevP+io3l XfagPpphlRd3BujlGdkNO2Wq53dW8uKJm6i820ai1/E8msJm7+/KhpkM05M1smdM+7SozwVq6SUSH7Ba /pRWTk6sxgb8elsFBZMF pNvJ7WxGbBVWr5xbx7c42g8s/AkBiYuLkH3/S9JFT7zhIaEz7I0MrCUFu7oJFNNhNfus//Cjd9Pbjl5n DpA5x42/b8oqCQYTa3v9 86TFkfEpmSN2+uZJ8fJDFO6c4BFRRLWBvYFi5FZ4IW9735mzTz2Jd+VCwNGNj3De+d/JvwjBMyNmzVme qji7T9n6R3+/b+/cz8iv k77kbdruGOMfQ+nkzLpYC4Do8maJpO9Wruex+ugTM8umPkGrjyzuo/IUL+Tnwf+7evXXzZonESg/F18+ UbpFcb4hHA6PxfJWjMnl oXIIgTAvmFO6/bzdOdypQLDIj4XUdq1YTcRfS8XTvHYGLRwlU30Ra+QcRD1Wt27lmBgwfBDTA3Ljxt71 RRFFU/4Mzo4eBwp1cNPH j9V93cmGYmtcj+LgWxwaj4aNGw1FCkzj4LdUhpZkU92/vaTjKOVUhVfs5hvWO5NeE6xJMTHs+DsPgL9i qXBOXcKcviFCO8cyAlzl Dv5NspkNfogLRIlYSRIsmwS/RxCz2MoZ4Mz+nAmKOCssybZ31l59f5zfAk3eD5jvw4Vdt2aYap+FCkiQ aUm4gPvhfruJTxzW0kDZ M5YAjO0vWNGc6yfWk0FyQxqNFOBsdk1AHhPzVnTCrUNuxTkMw9Aqg0kjW1wLysQS6x8ZY435I6VD2xxN Yju1/AICnp+uhdtyP68E UvDxV/pxWGASy0ao4m/q0F972crDX+6LieDj5W/3SqXmI3fxyCGMrTEFopcQttri0b44kAyXFdm154eV Ph3MN2ljNniIOxj9NTRI vDcdx/U5xIsiD7ncFceURcu/vQvN34bQZ5T8rdzRgExerIRaNj9Ni3CGuHdUR5RuQtQ39Sv401r4w799 i0F2n9uCeP7JmR1A6jqh yQoeczLFjlODYmPJ52HbbHiqy9f87Z4t4IUHpBm8MJRcE4hsmd3M1arm6DLPD230uq4JhWqYwGUuUpWU lLBZhVeGs9y6kbbMYIuO ZQg5AFNZahk2Cyx/niMj5HCStQqd+fetW/ox0Pmcw5EAO3p7f4gbCAxNJZs4WCqxiFskSyyLULmknybj VLsLp0p1owartcGqhSTw 8LDy/bE7qO7t+EO4RmzxGmpMGlvD7PaoF7jGyPHVyTv94LfmSdB4fhy4ookzZDd3SHPiDqx28oRtPTwf vhy157/vdUKKLk9yMYgj r51JwAbBvOkra3hBweiLHTo8c8x59GVUxdSfYPPnVl07Y2QYn4bUkie5xvv1FyY91Gr0w9+ashli+PTp09m cqHdb7yo4E0hGGofGwFJ djMxIH9i/vipCSHh04YmCg31lJ8o9W3+pAWz3hkom5lgcdUH+FZ2jz2mv7LtVnV6Tsp1sQs247Wfq9vh frQlpjo538lusfs0tn+g tSExM/U6i87cO05MDd/gR8/cOYCFvyzSNaFcg4NsqR3zho/QgYVrAsxlpRsyOUkXQlqiG6I2mOWOpUgP MoMfkZ62atSLvap6nxQN y0Fm1Ot70dj/31zNCX09VyEQRUDtA08bg/765x2PCSq4ht5zqy9feeMWc/uVLl5k+UTPKjVLk13+FREV Hiu18J0ZISvV5CKgt6+7 kSSkkyHx9FVLsvoxAFoZB7Ha6Zd6vv4g96KCt8/2YVXxXVhOAw8gzPqXWrAOPJD3rOefr0USQCZx8tZV R9/Lue9WtFy8XnJh8C/v 5s+p8AZv9G+d0C4bAhZi4r6bYPxPAlHlfiB9/f/t09pCFb9gd5luS1yRRwclCUMLxHrCuThZKrboS709 5a+6cOVqNtk/qxfRh9C7 j0QtybXbiCKV+RLYceceYmhtThbxov1KeLDSB4oxMcNpDPS76IU0U+slKWfnzBe8Mky9+TbxAKKBIUqV SRT9+yXUbviCKrp0QpVD yFRgc1o2s/BhxoGHWz1fvrn+7ju/FRZJaW01VwNQJZRmF5r33Fi2kswruqbKpIQQ7LHx9MiUrgdKwgZu hFJAxh3A/5r6l16EYLgY cOdCS7pvX82+an4yu7ve91Xrj8UHOwPpwyMOOnh0vErmgUvhaoSh1sSLRTPKIFfbJJM1EzyZks3jyN8J pzN5aUwdzwGsy16adsab 77OmJtBbC9m+DKCDIaViexE5tY+KrHxsAiJYPhrgNoZ04WuWbwPKezhG8cLdKm7zc4afrVkq8TmBQMYc PpBzgel8DpaSar+blKU0 NV3hu0LAtXC0oBKNBlf8SppIxAHTLXIT39fx5146jckmTLin/1R7yv74wY/j5+yNJg6znl/WAnW3yE/F 9RsSh8+qMh8FlsJY771+ fP3/85S6z54y1rXn4CuEBbQ331/EDm0s5r8x8So3JdlQ8lhqu6DgRE9gJbwQo2sj4tBNTJs3v/bOLi8u SZUsLH+WXSqUdOnZkWCb s2rUD+/jfUfDZWOWWUq736vrCI8bPTfCj7I9+koJ3B8W9zLQpiaWfjh017bnru0n+1B3rP34o3mEIJYW QioMEBrOwVy2hq/zosZi YXFrCAezGL0xYY8SONU9qCo7vvEMExBjBAd+/Xm6fIgIqxMqh8jUxf9UlbMNgv1oljhz5XZhgMBhAIiJ noX3etsef/+r903hdgk2 ev2/IEj1ELQPE3t8lkORZRb9sdjqdLSTXJ/yLyg0kZOg0CRaNFL2FzLQLkL/+/kiCO4929AMe5faVWy+ 5UF4t7x11p+/B77dt9Wp wq4bjJTIfricvK5NHK5+u+NHLxEyVJ3Kellxtq9v9NKrGjCbWwNiblqJwEkNNtJRJk5K7DPcE6J74Fvn 11XE8g5ctGbY88RX0p+4 skEnAJYPaJOYBFin7Il3UZpLVymEqkK//1lBsu6BCjKPVGURn0j7antAtR5PG4Ch930c059MsKB0E88z RbjFoIE9WYQN4BAf9x09 fkxjDMHt2/1zNo6fe2LC6fxs5aVHhkvqIRfSeB7+lYUhCkmA7yksVqejqx9caSCDK/4ED/6mPjLAs++D +e9zYy4P6mjSKcZeFICW PMMK1FTlwEQM84fQb04BXUdVHEfat6g1O6xebbvvpg3Mkm5Go41NrK7kLltCfyOsaIc8PHHCyP14oBbn 43tUSHYMplSlwdCu8DgH p2ox/0fEx2LTDf5D0qkIo2TzV43XJFWaunDvoPLdmNOgB58jEQWVBGI0/3TLJi6Ob5+Yvs1iAXlqtZd/ Qiv0pjTJOZe0yxbuMlUr o5zxwex7XbPyX9+faW7pizEcViPgurdS5+arLn0WgxFumLIx04xVTj+0vGeiDWcLE8buPk3OqZkEjnkn 209PSDuw/QNOUWCxxcHD B9SV8FUtCs8GxqYfCvgh4wKpp+cJgMJh/A//Y+CmBn0C8coGCeoLteIjjyFCZFRaRSmoUPdEwqUzLn4S UGrDCwmAwpQassDAYTKk NEdcILlQvsLxVm5PVZkJZyvDoqUguhGBDWAhXQpoIZfVxsQpWk7SCFdFFjiPcaRadwNKBUQrCPoxWAwT uaWdYt4QQMwAPlxPxxNa qdEXMQMcNAhiLIrDmhMnHv2FBIjZZ+io6qTgTaKVfQk/++DNzggii0d3lQfa0y64i9+joKBKJ+vfvbyH Irp0mPv/b9r54gXPY7vy 3V2zOveRtFoR0Uxi43pz0lhd107zx0n1tYj2FGNTi881PxbNNHzTpCsUt7MLF6911qpjmc2MWMZ8xr8/ D7PXi7jffQzmMr04LJ6+ 1nrVyTApFHGiJnanx5q3iMkIlvvu/LZtm70Xsyit+qR4+fPj/zOjSpcuuXbs+uc0Zqv1wTCGNxOa/7j1 79vzf//7idO5WSOFKPCU DFEskX8mxhyRrDA2TpCtAJD7mVbDAR5VS2cZrU4TPy4116a/+pJ9nzqLIo980Kwbe9vJTWJ+ePCkk/fL gfqLGoc5nPWdPxDNJxVm 9iFnTSjEaGA9jAp0YVHYP4sOBs4jClh6KD4wAnDeKjtOUk9iOMMg950Hbl3H2/CyqFBlV5s0Qi3ZNLWT gxx9/7ZyCu80n+NM4Y8Y M/ruMJEv9HCJF9FAkUkhi+dCbuHBY0hnfDYDTvMWbjwN94sItLJY+SaNMHIu36tJ8vux3732iC8HqAF6 sZp6jesmIKwIkiMIOX44 dPtqFiukj24kAv6l+3vVOaofnBkxUfq62+iqn97TTfqotYroXXj1iNCXL4Hct9Yj2AJpmTn/65456W4J //v179+8kDPNfXaj787p HjOiB12ijHtc2nbCtuWw5+J0n7zf6idpYbEV/eVnGqVVq0cH34cUZDjiD56ZCOn+4cf41HfYpdAWaL18 WDNaKPAsCrmz5xF/x4MG GHDDt1oVBTcwkL5uPwPjugdBMhOuBv2i1nVfmWq6Vtq8Vto8w7mkRQDKBd1bhGhF330/z2/kLrAhb61p 33ws/DtziZ7z300FQHnp /CVqy8ow8G/Pbz58/YyZ3nbqnHJ5ytFpQrWAjfGcobWCAkiD05JieJfpaqEc9enYNOgrj7HMpEVcnZJe YWKtWrQYOHBgZGWkeumj MYy0qVCFbu1OFxEdz/SfchWVlKBKBfAaLvuKi5pc2ufRVAQDTZXsNSDLgn+rPvGDiuyJYAJbsKzCA4HL W24FiK4rlU4Vf3ZiyYN3 5CCK2Iu43bQa18xRZisHpv7lz8ofCVLwAKHOQioc+06X6xej1q4yrUGZi8MrrFaKpMkYroHtibjNHd/P uFCoCDJAx2ldF1BmCqpA Cj5fLqNATLZh3oeMeDLDNHY0wcjUrPToZyE58Bp1d/Uhj9rCtQ9tCWrTQU395fjQeywybmEJG1/qVVsW pCluA6Kw5PymrgAf8oEp c7lZasGiEyx4wYPy3+/ilN9RgTfKs3HilqWOfPUDXKHywAj8Krh0Bp3UB14LNxpIfbOWg246vpsIhPTO J6CE0CTTDk7PjkoTi9f+ zk2eo1c9nXqWDaYaRiqRjxe//pwbvWTjZGSHhDi4LkEn1pm3DwFl/++61NBaTFntP2pTBW5ACVkFVUbf SK960m22Qb8FeXUzgjQi yk0a0FfYacL1/v/oP8tE749iH5R+A5hURi6Lnko70372BQa4e0NhldF6LTKJQUv4LIGtMHIc+achkMoF ZUWcJFqjhKrBwr9xYDX8 T3RUcq2FEeFjShICEQ3vT0+MAd55e6y08mdGivssh41033fCUfTHWr+yTlWzYBJsQJkPANXqmNu85+Yn zpqiCsjNvYfEKzrQbHx8 ESVs3vceflrHhCtJmUP6xdtqQR4xiN7gywajQKX0rfgQ6WInb3Cue+YtUoUKF/BI00EYgPAZZ59LhSlI SO1vEvE1n2BUhQ9Kue8v 35QtTSmOc1CqzDsIVcXiDnR/z6Z2TTabEqFfDKr6j4pp/+uqrnJycQhJ5+fJlMbNDCFnkCACxsbGPHz8 1Nu0czzSe0R2MjWCh4ks PcNasWbwkj4+FEtNK7uv1+vqacjRhNYUaNWoAAG8+Q8DcYovLxQYSIjYea2QijfNLfEiy1MMoACPu8do 169GjB+2byLWQb419TWb PH/7c1aBcR2386807l+/yCWs4YHKTgoIyiu0MCCUNVSDsesmBBYMEso5qwJvzJb142ylfcMl1CG9sDn6 lRux5UthsJcCUdL644Kw ibQvtxRtnX21lGB2MOyBsMCMuj010t4GydeGCKlHg339/++11ybXVFNvJXRHdRnqwXV8z0bfIFkncW35 DY0HfTWUq3Xz4z+a1mp2 e4laGs2DoZc43SeUs+gBa3E5N0zmPGVy2ILR7xpHG2+Zi1CgrEjBBqRq9KkLRGnKNYb88gtQgXlnw4EY bMcs8pzs8XvW41V/3ily kWSWwsUxc6crmiTUJ5nsyOShKJ51eWJhmHER7S6N4KOOcQVVcvbD2MAmgoF/LgrkVZIuums5O5sTWp6v EJQuu+s9H4W+ImTNnAgB NPa5rvgJBthz4Iw9o8tDm0ia+oqZfb8YMCEIYwb1b5j6q1Nde8te06zTpdlO/ATGFFUduuKoAM8a8q8y +49atW/oFGBv7bQyRj5O InozxFiZVYcSTLsJ8kAjM02/Pxg3Rimvs9H1MvagtHzW9g6hV/Kjpau8ScU33u+lCTIAHm2rurDsz8pv ZnIIE8Mc7ykAa699GgTs CV0h1xCCbLz9ODoBl7mE31ggUQqe1ut9pPfG1tov9snOGFAKKl/hbq9v634+/FYlEPj4+oo2F1giC49t tG2+syc/z58+vXLlichM HgJ9++bvz2pk9osa+/d1i097mdMb8RbaUxqt5+/fgKvRhUT7bMIwOqDidr5P2Es8ltYu3qrepqlCmYd2 m2vgOvKIWB9fq6Vl3qLD /wHHDnO312l6+/dVtiyLqXaxqQw2qytTfudUKZr0n6b90uhTIYE9MTpRLeVgeVLsayxCnUiwxGSCVKxP EhCc7M36wrvLLsmZcrZL u3bu//vrr/MPzeZ3NxqKz2lcS8ZneCxYWEpMwgjrpmVEm2lvqYeTROphaHYZQ0QzVHQ1LcWLyP47eyz2 xDFBGti56XVZZPu9ih00 dsLbCfGpwC+nFlXlWLg86eLMu6P/MtkVuWjj9YiQOoKwQZypIcLRvxFdJb3YIMiGMkmBnsYfieZDZUIi ABktAHyVooBkAj0MPIyS CwmAwpYb/A55RS/x4v2VCHITCQKwYAgDtIuDG></span></span></span>
</div><span style=font-size:12px><span style=font-family:Canaan,Helvetica,sans- serif>
<strong>Patient Name: </strong><span class=& quot;clinicalNotHaris id=[id number] macroname=PatientNam e spantype=macro title=#PatientName>SHANELL MENDEZ</span>& lt;br><strong>MRN: </strong><span class=clinicalNoteMacroWandrew" id=[id number] macroname=PatientMRN spantype=macro title=#PatientMRN>[id number]</span>
<strong>Date of : </strong><span class=clinicalNoteMacrDaniel id=[id number]" macroname=PatientDateOfBirth spantype=macro title=#PatientDateOf >1985</span>
<strong>Date of Service: </strong><span class=clinicalNoteMacrDaniel id=[id number] macrona me=EffectiveDate spantype=macro title=#EffectiveDate>06/30/20 25</span></span></span>
<strong>Attending Physician: & nbsp;</strong><span class=clinicalNoteMacroWysiwyg id=[id number] macroname=AttendingPhysician spantype=macro title=#Attending Physician>Torsten Mederos (Medical Oncology)</span>
<strong>Referring Omayra kang:</strong> <span class=clinicalNoteMacroWysiwyg id=[id number] macroname=ReferringPhysician spantype=macro title=#Referr ingPhysician>Telma You MD</span>

<div style=text-align:center><span style=font-size:12px><span style=font-family:Canaan,Helvetica,sans- serif><strong>INITIAL HEMATOLOGY/MEDICAL ONCOLOGY CONSULTATION</strong ></span></span>

</div><span style=font-size:12px"><span style=font-family:Canaan,Helvetica,sans-serif><span style=font- size:12px><span style=font-family:Canaan,Helvetica,sans-serif></span& gt;</span><span class=clinicalNoteSectionVisible id=[id number] internalbreaksection=false originalname=Reason for Visit recognizec oncepts=true spantype=section suppressempty=false>Reason for Visit</span><ol> <li>DVT left leg. Left proximal femoral vein. 05/23/2025
</li> <li>Bilateral pulmonary embolism with acute cor pulmonale.
</li> <li>Suspected antiphospholipid syndrome.
</li></ol>
<span class=clinicalNoteSectionVisible id=[id number] internalbreaksection=false kalli ginalname=Assessment recognizeconcepts=true spantype=section sup pressempty=false>Assessment</span><ol> <li>Patient is a very pleasant 39-year-old lady referred by Dr. You, for a hematology consult due to recent [...] brought her to the local ER in [facility]. Ultrasound Doppler showed nonocclusive DVT in the [...] the thoracic aorta.
</li> <li>[facility] she required pressors on [...] with repeat labs.
</li></ol>
<span style=font- size:12px><span style=font-family:Canaan,Helvetica,sans-serif><span class=clinicalNoteSectionVisible id=[id number] internalbreaksection=false originalname=Advanced Care Planning recog [...] suppressempty=false>Pain Plan on Today's Visit< /span>
<span class=clinicalNoteMacroWysiwyg id=[id number] macroname=PatientPainCarePlan parameters=LookBackDays:0,ShowComments:Yes ,ValueIfNull:No pain plan indicated for today spantype=macro title=#PatientP ainCarePlan(LookBackDays:0,ShowComments:Yes,ValueIfNull:No pain plan indicated for today's visit)>No pain plan indicated for today's visit</span><span style=font-size:12px><span style=font-family:Canaan,Helvetica,sans-serif>
<span style=font- size:12px><span style=font-family:Canaan,Helvetica,sans-serif"><span style=font-size:12px><span style=font-family:Canaan,Helvetica,sans- serif><span style=font-size:12px><span style=font-family:Ar ial,Helvetica,sans-serif><span style=font-family:Canaan><span class=&qu ot;clinicalNoteSectionVisible id=[id number] internalbreaksection="false originalname=Smoking Status recognizeconcepts=true spantype="section suppressempty=true>Smoking Status</span>
Smoking Status: <span class=clinicalNoteMacroWysiwyg id=[id number] macroname=PatientSmokingStatus parameters=ValueIfNull:Not recorded. spantype="macro title=#PatientSmokingStatus(ValueIfNull:Not recorded.)>Smoking Tobacco : Never smoker; Smokeless Tobacco : Never used smokeless tobacco; Vaping : Never vaped</span></span></span></span></span></span></span></span></spa n></span>

<span style=font-size:12px><span style=&q uot;font-family:Canaan,Helvetica,sans-serif><span style=font-size:12px>&lt ;span style=font-family:Canaan,Helvetica,sans-serif><span class=clinicalNoteS ectionVisible id=[id number] internalbreaksection=false o riginalname=History of Present Illness recognizeconcepts=true spantype=&quot ;section suppressempty=false>History of Present Illness</span></span&g t;</span></span></span>
<span style=font-size:12px><span style=font-family:Canaan,Helvetica,sans-serif><ol> <li>Patient reported that she has a Mirena [...] brought her to the local ER in [facility]. &nbsp ;Ultrasound Doppler showed nonocclusive DVT in [...] thoracic aorta.
</li> <li>Patient was transferred to [facility] via medevac helicopter she required pressors on [...] the History of Present Illness.
<span style=font-size:12px><span style=font-family:Canaan,Helvetica,sans-serif"><span class=clinicalNoteSectionVisible id=[id number] internalbreaksection=false originalname=Past Medical History recognizeconcep ts=true spantype=section suppressempty=false>Past Medical and Surgical History</span></span></span>
<span style=font-size:12px><span style=font-family:Canaan,Helvetica,sans-serif>She does not smoke cigarettes. She uses a Mirena IUD and norethindrone as well as oral contraceptive pills to treat endometriosis.</span></span>
Also past medical history significant for asthma.
Since hospital discharge admission patient has stopped eating oral contraceptive pills she still has the Mirena coil.

<span style=font-size:12px><span style=font-family:Canaan,Helvetica,sans-serif><span class=clinicalNoteSectionVisible id=[id number] internalbreaksection=false originalname=Current Medications recognize concepts=true spantype=section suppressempty=false>Current Me dications</span>
<span class=clinicalNoteMacroWysiwyg id=macro_[id number] macroname=CurrentMedicationsTable spantype=macro title =#CurrentMedicationsTable><table border=1 style=width:100%> <tbody> [...] Tablet</td> <td width=40%>06/30/2025</td> </tr> </tbody></table></span></span></span>
<span style=font-size:12px><span style=font-family:Canaan,Helvetica,sans-serif><span class=clinicalNoteSectionVisible id=[id number] internalbreak section=false originalname=Allergies recognizeconcepts=true span type=section suppressempty=false>Allergies</span>
<span class=clinicalNoteMacroWysiwyg id=[id number] macroname=A llergyTable spantype=macro title=#AllergyTable>No known medication allergies</span></span></span>
<span style=font-size:12px><span style=font-family:Canaan,Helvetica,sans-serif><span class=clinica lNoteSectionVisible id=[id number] internalbreaksection=false& quot; originalname=Family History recognizeconcepts=true spantype=section suppressempty=false>Family History</span></span></span>&l t;br>Family/Hematologic History: Her sister had 6 miscarriages but no episodes of VTE. Her father and multiple members of his family have had heart attacks. She does not have any children.
Patient was one of her cousins was found to have factor V Leiden.
<span style=font-size:12px><span style=font-family:Canaan,Helvetica,sans-serif><span class=clinicalNoteSectionVisible id=[id number] regulatory affairs intern albreaksection=false originalname=Social History recognizeconcepts=true spantype=section suppressempty=true>Social History</span>&l t;/span></span>
Patient works for a [employer].
She does not smoke

<span style=font-size:12px><span style=&q uot;font-family:Canaan,Helvetica,sans-serif><span class=clinicalNoteSectionVisible" id=[id number] internalbreaksection=false originalname="Vital Signs and Pain Scale recognizeconcepts=true spantype=section suppressempty=false>Vital Signs</span>
<span class=clinicalNoteMacroWysiwyg id=[id number] macroname=PatientVitalSigns parameters=LookBackDays:1 spantype=macro title=#PatientVitalSigns(Look BackDays:1)>Blood pressure: 120/82, Pulse: 77, Temperature: 97.1 F, Respirations: 16, O2 sat: 100%, Pain Scale: 0, Height: 67.5 in, Weight: 220.4 lb, BSA: 2.12, BMI: 34.01 kg/m2</span></span></span>
<span style=font- size:12px><span style="font-family:Canaan,Helvetica,sans-serif><span style=font-size:12px><span style=font-family:Canaan,Helvetica,sans-serif>Immunizations: <span class=c linicalNoteMacroWysiwyg id=[id number] macroname=Immunizations&qu ot; parameters=ValueIfNull:Not recorded. spantype=macro title=#Immuniz ations(ValueIfNull:Not recorded.)>Covid-19 vaccine (Moderna) (06/30/2025), Patient declined/rejected</span>
<span class=clinicalNoteMaSabra id=[id number] macroname=PatientOxygenSat parameters=Label:Oxygen Sats,LookBackDays:All spantype=macro title=#PatientOxygenSat(Label:Oxygen Sats,LookBackDays:All)>Oxygen Sats 100%</span></span></span></span></span>
<span class=clinicalNoteSectionVisible id=[id number]" internalbreaksection=false originalname=Performance Status recognizeco ncepts=true spantype=section suppressempty=true>Performance Status ECOG or Karnofsky</span>
ECOG: <span class=clinicalNoteMaDimasiwyg" id=[id number] macroname=ECOGStatus parameters=ValueIfNull:Not recorded. spantype=macro title=#ECOGStatus(ValueIfNull:Not recorded.)>Not recorded.</span>
Karnofsky: <span class=clinicalNotOhioHealth Nelsonville Health CenterDimasiw id=[id number] macroname=KarnofskyStatus parameters=&q uot;ValueIfNull:Not recorded spantype=macro title=#KarnofskyStatus(ValueIfNu [...]
</td> <td>
</td> </tr> <tr> <td> LY %</td> <td>35.0</td> <td>
</td> <td>
</td> <td>
</td> [...]
</td> <td>
</td> </tr> <tr> <td> MO # x 10^3/uL</td> <td>0.6</td> <td>
</td> <td>
</td> <td>
</td> </tr> <tr> <td> EO # x 10^3/uL</td> <td>0.1</td> <td>
</td> <td>
</td> <td>
</td> </tr> <tr> <td> BA # x 10^3/uL</td> <td>0.0</td> <td>
</td> <td>
</td> <td>
</td> </tr> <tr> <td> IG # x 10^3/uL</td> <td>0.03</td> <td>
</td> <td>
</td> <td>
</td> </tr> <tr> <td> LY # x 10^3/uL</td> <td>2.8</td> <td>
</td> <td>
</td> <td>
</td> </tr> </tbody></table></span>
<span class=clinicalNoteMacroWyspocahontas [facility] id=[id number] macronam e=RecentLabResultsTable parameters=OptionalFlowsheetCategory:Chemistries,Label:Chemistries spantype=macro title=#RecentLabResultsTable(OptionalFlowsheetCatego ry:Chemistries,Label:Chemistries)></span>
<span class=clinicalNoteM acroWyspocahontas community hospital id=[id number] macroname=RecentLabResultsTable parameters=OptionalFlowsheetCategory:Tumor Markers,Label:Tumor Markers spantype=macro title=#RecentLabResultsTable(OptionalFlowsheetCategory:Tumor Markers,Label:Tumor Markers)></span>
<span class=clinicalNoteMacroWyspocahontas [facility] hospital id=[id number] macroname=RecentLabResultsTable parameters=OptionalFlowsheetCategory:Anemia Labs,Label:Anemia Results spantype=macro title=#RecentLabResultsTable(OptionalFlowsheetCategory:Anemia Labs,Label:Anemia Results)></span></span></span>

<span class=clinicalNoteSectionVisible id=[id number] internalbreaksection=false originalname=Surveys/Consents/Other Discussions recognizeconcepts=true spantype=section" suppressempty=true>Surveys/Consents/Other Discussions</span>
<br& gt;
<hr><span style=font-size:12px><span style=font-family :Canaan,Helvetica,sans-serif>
Thank you for allowing me to see [...]
--- OUTSIDE RECORDS SUMMARY | 2025-09-07 13:40 | XMS_ITS | Clinical Summary ---
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 Name Role Phone Riddhi Brewster NP Primary [...] Type Department Care Team Description 08/08/2025 Telephone [facility] [address] [facility] [address] [place] [address] Vipul Rivers MD Questions 07/20/2025 Telephone [facility] [address] [place] [address] [place] [address] Vipul Rivers MD Appointment 07/18/2025 11:00 AM CDT Office Visit [facility] [address] [facility] [address] [place] [address] Vipul Rivers MD Follow Up (/[facility] H[facility]ITAL /ECHO & LABS PRIOR/DX: Cardiogenic shock (HC) [R57.0] /PT states feeling ok, she has same chest tightness and leg edema. She is extremely hot at night sweating. 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 Gender Identity Female 04/30/2023 4:12 PM CDT [...] Info) Description 09/20/2025 10:45 AM CDT Appointment [facility] [address] [place] [address] 09/20/2025 11:00 AM CDT Appointment [facility] [address] [place] [address] 09/20/2025 1:50 PM CDT Orders Only [facility] [address] [facility] [address] [place] [address] 09/20/2025 2:45 PM CDT Appointment [facility] [address] [place] [address] 09/20/2025 4:30 PM CDT Office Visit [facility] [address] [facility] [address] [place] [address] Vipul Rivers MD [address] [facility] [address] [place] [address] Health Maintenance Due Date Last Done Comments [...] 3-dose SCDM series) 07/25 COVID-19 vaccine series (2 - 2024- season) 2022 Influenza Vaccine (#1) 2025 BMI [...] shock (HC) Acute massive pulmonary embolism (HC) from Last 3 Months Results * ECHO TTE LIMITED WO CONTRAST (07/18/2025 9:31 AM CDT) [facility] Signature EJECTION FRACTION 61 % LVEDD 5.2 cm EJECTION FRACTION 55 - 60% Anatomical Region Laterality Modality Ultrasound 07/18/2025 9:02 AM CDT Narrative 07/18/2025 1:16 PM CDT ECHOCARDIOGRAM LEXI MENDEZ : 1985 39 years Study Date: 07/18/2025 9:02:58 AM Gender: F BP: 115/76 mmHg Height: 170.18 cm BSA: 2.07 m Weight: 96.16 kg Tech: R Referring MD: DAVID LOBO Site: [facility] Reading Location: MOBILE - OP Patient [...] . This study was interpreted by an IAC accredited facility. Final Procedure Note Bill Cheatham MD - 07/18/2025 ECHOCARDIOGRAM LEXI MENDEZ : 1985 39 years Study Date: 07/18/2025 9:02:58 AM Gender: F BP: 115/76 mmHg Height: 170.18 cm BSA: 2.07 m Weight: 96.16 kg Tech: MSR Referring MD: DAVID LOBO Site: [facility] Reading Location: MOBILE - OP Patient Location: [...] . This study was interpreted by an IAC accredited facility. Final David Lobo MD ECHO ORD Final R esult * PRO-BNP (07/18/2025 8:36 AM CDT) NT PROBNP 72 <125 pg/mL 07/19/2025 1:37 PM CDT [facility] Blood BLOOD SPECIMEN / Unknown [facility] / Unknown 07/18/2025 8:36 AM CDT 07/18/2025 8:37 AM CDT David Lobo MD SEND OUTS Final R esult [facility] [address] [place] [address], [place] [phone] * BASIC METABOLIC PANEL (07/18/2025 8:36 AM CDT) SODIUM 139 135 - 146 mmol/L 07/19/2025 [...] 8:36 AM CDT 07/18/2025 8:37 AM CDT David Lobo MD CHEMISTRY Final R esult [facility] [address] [place] [address], [place] [phone] from Last 3 Months Insurance [place] [id number] [place] [id number] Advance Directives * Full Code (Latest Code Status on File) Date Activated Date Inactivated Comments 05/24/2025 7:09 AM 05/28/2025 2:42 PM Question Answer Comments Code Status Discussion: Reviewed Preferences * Full Code Date Activated Date Inactivated Comments 05/23/2025 11:21 AM 05/24/2025 7:09 AM Question Answer Comments Code Status Discussion: Unable to Assess Preferences, Provider to review later Care Teams Oil Spreader Operator Relationship Specialty Start Date End Date Riddhi Brewster NP [address] [place] [address] PCP - General Nurse Practitioner - Family 05/25/25
--- NOTE | 2025-09-07 13:55 | ED.GENADULT ---
HPI - General Adult General Time Seen by Provider: 13:55 Date Seen: 09/07/25 Chief complaint: Extremity Pain/Injury, Lower Stated complaint: Possible blood clots in legs Time Seen by Provider: 09/07/25 13:55 Source: patient, RN notes reviewed and old records reviewed Mode of arrival: ambulatory Limitations: no limitations History of Present Illness HPI narrative: Lexi is a very pleasant 40-year-old female with a history a few months ago of DVT, massive PE with collapse and cardiac arrest on ECMO at [facility] for a week who comes to the emergency room for evaluation of chest pain and leg cramping. Lexi notes that prior to her DVT collapse this summer she had had cramping especially in her left leg and it gave out on her. This happened again this week. She notes that she has been experiencing some chest pain as well that started this morning. She has not passed out. She initially started on Eliquis but then switched to warfarin per her pulp tester in order to have genetic testing done. Unfortunately she has been having at challenge getting her INR about 1.7 and is currently taking 12.5 mg. She believes that the PE and DVT occurred secondary to underlying genetic component as her mom has a history of blood clots as well as her use of hormones. Significant discontinue the hormones but does have a Mirena device but discussions between her fudge candy maker and Oncology felt that she would be at higher risk without the Mirena in. She does not use excessive salads or vegetables. No recent fevers. She has had some allergies. No abdominal pain today. Patient notes that she still has some dilation of the right side of her heart because of the PE. Related Data Home Medications ?Medication ?Instructions ?Recorded ?Confirmed multivitamin with minerals 1 tab PO ONCE 01/28/23 09/07/25 (Multiple Vitamin-Minerals tablet) levonorgestrel (Mirena) 1 device intrauterine ONCE 09/26/24 09/07/25 fluticasone 250 mcg-salmeterol 50 1 ea inhalation BID 05/18/25 09/07/25 mcg/dose blistr powdr for inhalation fluticasone propionate 50 1 - 2 spray intranasal DAILY 05/18/25 09/07/25 mcg/actuation nasal spray,suspension triamcinolone acetonide 0.1 % applic topical BID 05/18/25 08/10/25 topical cream cetirizine 10 mg tablet 10 mg PO QDAY PRN 05/31/25 09/07/25 ferrous gluconate 240 mg (27 mg 240 mg PO QDAY 05/31/25 09/07/25 iron) tablet warfarin 5 mg tablet 5 mg PO DAILY 07/03/25 09/07/25 Bacillus coagulans 800 million cell PO 08/10/25 08/10/25 cell tablet Previous Rx's ?Medication ?Instructions ?Recorded albuterol sulfate 90 mcg/actuation 2 puff inhalation Q4-6H PRN 09/26/24 aerosol inhaler shortness of breath or wheezing 90 days #8.5 grams sumatriptan succinate 100 mg tablet 100 mg PO ONCE #14 tabs 09/26/24 trazodone 50 mg tablet 100 mg (2 x 50 mg) PO QHS 90 days 12/08/24 #180 tabs ondansetron 4 mg disintegrating 4 mg PO Q8H PRN nausea and 04/24/25 tablet vomiting 30 days #30 tabs lorazepam 0.5 mg tablet (Ativan) 0.5 mg PO BID PRN agitation #20 05/31/25 tabs fluoxetine 20 mg capsule 40 mg (2 x 20 mg) PO QDAY #90 caps 06/05/25 Allergies Allergy/AdvReac Type Severity Reaction Status Date / Time No Known Drug Allergies Allergy Verified 09/07/25 15:06 Review of Systems Status of ROS: Reports: 10 or more systems reviewed and unremarkable except as noted in History and below Const: Denies: fever, chills or fatigue Eyes: Denies: change in vision ENMT: Reports: hoarseness; Denies: throat pain, neck pain or nasal congestion Cardio: Reports: chest pain and lightheadedness; Denies: palpitations, swelling of feet/ankles or shortness of breath with exertion Resp: Denies: shortness of breath or cough GI: Denies: abdominal pain, nausea or vomiting : Reports: other (Denies any possibility of ); Denies: painful urination Musculo: Reports: extremity pain; Denies: back pain, neck pain or extremity swelling Neuro: Denies: headache Psych: Reports: anxiety Endo: Denies: fatigue PFSH PFSH Medical History History of DVT (deep vein thrombosis) ?Z86.718 - Personal history of other venous thrombosis and embolism (ICD-10) History of pulmonary embolus (PE) ?Z86.711 - Personal history of pulmonary embolism (ICD-10) Endometriosis ?N80.9 - Endometriosis, unspecified (ICD-10) Heavy menstrual bleeding ?N92.0 - Excessive and frequent menstruation with regular cycle (ICD-10) Abnormal Papanicolaou smear of cervix with positive human papilloma virus (HPV) test ?R87.618 - Other abnormal cytological findings on specimens from cervix uteri (ICD-10) Insomnia ?G47.00 - Insomnia, unspecified (ICD-10) Migraine ?G43.909 - Migraine, unspecified, not intractable, without status migrainosus (ICD-10) Iron deficiency anemia ?D50.9 - Iron deficiency anemia, unspecified (ICD-10) Anxiety ?F41.9 - Anxiety disorder, unspecified (ICD-10) Asthma ?J45.909 - Unspecified asthma, uncomplicated (ICD-10) Surgical History History of colposcopy with cervical biopsy (2022) ?Z98.890 - Other specified postprocedural states (ICD-10) History of loop electrical excision procedure (LEEP) ?Z98.890 - Other specified postprocedural states (ICD-10) H/O wisdom tooth extraction ?K08.409 - Partial loss of teeth, unspecified cause, unspecified class (ICD-10) H/O foot surgery ?Z98.890 - Other specified postprocedural states (ICD-10) Hx of tonsillectomy ?Z90.89 - Acquired absence of other organs (ICD-10) Gastric bypass status for obesity ?Z98.84 - Bariatric surgery status (ICD-10) History of cholecystectomy ?Z90.49 - Acquired absence of other specified parts of digestive tract (ICD-10) Family History Mother Stroke Sister Thyroid cancer, medullary carcinoma Father Myocardial infarction Social History What is your current living situation?: I presently have a place to live Problems where you live: no known problems In the past 12 months, utilities in danger of being shut off: no In past 12 months, lack of transportation kept you from medical appts, meetings, work, or getting things needed for daily living: no In the past 12 mos, have been you worried that your food would run out before you had money to buy more?: never true In the past 12 mos, the food you bought just didn't last and you didn't have money to buy more?: never true Smoking Status: Never smoker Do you use any of these nicotine containing products: None How often do you have a drink containing alcohol: monthly or less How many standard drinks containing alcohol do you have on a typical day: 1 or 2 How often do you have six or more drinks on one occasion: Never AUDIT-C Alcohol total score: 1 Non-prescribed substance use: denies use How often does anyone, including family, friends and others, physically hurt you: never How often does anyone, including family, friends and others, insult or talk down to you: never How often does anyone, including family, friends and others, threaten you with harm: never How often does anyone, including family, friends and others, scream or curse at you: never service: No Exam Narrative: Exam Narrative: Alert and oriented. Somewhat tearful. External ears eyes nose clear. Heart with a tachycardic rate but normal rhythm. Do not hear any additional heart sounds or murmurs. Lungs are clear bilaterally. Abdomen soft. No pulsating mass. No evidence of lower extremity edema. Positive for some discomfort in the left calf. Moving all extremities. Const: Vital Signs, click to edit/add: Vital Signs - 24 hr 09/07/25 13:46 09/07/25 15:25 09/07/25 17:31 Temperature 97.8 F 98.7 F 97.6 F Pulse Rate [Pulse Oximeter] 100 84 77 Respiratory Rate 22 18 18 Blood Pressure [Ri ght Upper Arm] 143/79 H 122/90 H 132/92 H Pulse Oximetry 96 97 98 Oxygen Delivery Me thod Room Air Room Air Room Air Documenting provider has reviewed patient's vital signs: yes Course Course ED Course: Differential diagnosis includes but is not limited to recurrent PE, DVT, acute coronary event, pneumonia, anxiety. At this time will immediately order CT with IV contrast PE study given patient's history. Will also have a lower extremity Doppler as well as labs to include CBC, troponin, comprehensive, magnesium, INR. Patient was placed on playground monitor. Reevaluation(s) Reevaluation #1: Patient feeling much better after she is informed that there is no evidence of PE. Vital Signs Vital signs: Initial Vital Signs Temperature 97.8 F 09/07/25 13:46 Temperature Source Temporal Artery Scan 09/07/25 13:46 Pulse Rate 100 09/07/25 13:46 Respiratory Rate 22 09/07/25 13:46 Blood Pressure 143/79 H 09/07/25 13:46 Blood Pressure Mean 100 09/07/25 13:46 Pulse Oximetry 96 09/07/25 13:46 Oxygen Delivery Method Room Air 09/07/25 13:46 Vital Signs Temperature 97.8 F 09/07/25 13:46 Pulse Rate 100 09/07/25 13:46 Respiratory Rate 22 09/07/25 13:46 Blood Pressure 143/79 H 09/07/25 13:46 Pulse Oximetry 96 09/07/25 13:46 Oxygen Delivery Method Room Air 09/07/25 13:46 Temperature 97.6 F 09/07/25 17:31 Pulse Rate 77 09/07/25 17:31 Respiratory Rate 18 09/07/25 17:31 Blood Pressure 132/92 H 09/07/25 17:31 Pulse Oximetry 98 09/07/25 17:31 Oxygen Delivery Method Room Air 09/07/25 17:31 Medications Administered Medications: Generic Name Dose Route Start Last Admin Trade Name Freq PRN Reason Stop Dose Admin Magnesium Sulfate 2 gm in 50 mls @ 25 mls/hr 09/07/25 16:37 09/07/25 16:58 Magnesium Iv IVPB 09/07/25 18:36 25 mls/hr ONCE ONE Administration Medical Decision Making [facility] Narrative Medical decision making narrative: 1. Chest pain-no evidence of PE on CT. Lower extremity Doppler negative for DVT. Chest pain has improved shins she has been here. Initially tachycardic and mildly hypertensive both of those numbers have resolved without intervention. Did repeat a troponin over 2 hours after initial troponin. Chest pain started this morning so the 2nd troponin would have been greater than 8 hours from initial onset of symptoms. Both of these values were negative. In addition EKG showed sinus rhythm with nonspecific T-wave changes not in contiguous leads. Her chest pain again has improved with negative CT of the chest. 2. Leg pain-patient describes leg cramping on the left. No evidence of DVT bilateral legs on ultrasound. I am wondering if she is getting cramping as her magnesium is relatively low at 1.7. I do think that she would benefit from magnesium supplementation. Will give her 2 g IV in the ED. this should help her with her leg cramps. Will need to place her on daily supplementation as well. 3. Sub therapeutic INR-I had a discussion with Dr. Briscoe, hematology. We discussed that the INR is 1.84 today. A few weeks ago INR was 1.3. Patient has been on 12.5 mg of warfarin. For the next 4 days will have patient take 15 mg of warfarin as directed by Hematology. No evidence of bleeding at this time. Patient will then follow up on ThursdaySeptember 11 for an INR. Hematology recommends against addition of Lovenox at this time especially with no evidence of PE or DVT. 4. Disposition-home after receiving magnesium. Recommend rest at this time. Return to the ER for worsening symptoms. Medical Records Medical records reviewed: Yes I reviewed the patient's medical records Lab Data Lab results reviewed: Yes I reviewed the patient's lab results Labs: Lab Results 09/07/25 09/07/25 09/07/25 Range/Units 14:04 14:12 16:22 WBC 9.85 (4.50-11.00) K/uL RBC 5.34 H (4.00-5.20) m/uL Hgb 14.1 (12.0-16.0) gm/dL Hct 43.2 (33.0-51.0) % MCV 81 (80-100) fL MCH 26 (26-34) pg MCHC 33 (32-36) gm/dL RDW Coeff of Jeremy 14.7 (11.5-15.5) % Plt Count 431 (140-440) K/uL Neut % (Auto) 57.9 (42.0-72.0) % Lymph % (Auto) 33.4 (20-44) % Ocean % (Auto) 7.1 (0.0-11.0) % Eos % (Auto) 1.3 (0.0-7.0) % Baso % (Auto) 0.2 (0.0-3.0) % Neut # (Auto) 5.70 (1.7-7.0) K/uL Lymph # (Auto) 3.29 H (0.90-2.90) K/uL Ocean # (Auto) 0.70 (0.00-0.90) K/UL Eos # (Auto) 0.13 (0.00-0.50) K/uL Baso # (Auto) 0.02 (0.00-0.30) K/uL Abs Immat Gran (auto) 0.01 (0.00-0.30) K/uL Imm/Tot Granulo (auto) 0.1 % INR 1.84 H (0.91-1.10) Sodium 131 L (135-149) mmol/L Potassium 4.0 (3.6-5.1) mmol/L Chloride 99 (96-114) mmol/L Carbon Dioxide 29 (20-32) mmol/L Anion Gap 3 L (7-15) mEq/L BUN 13 (5-24) mg/dL Creatinine 0.8 (0.5-1.5) mg/dL Estimated Creat Clear 92.41 Estimated GFR 94 ml/min Glucose 116 H (60-115) mg/dL Calcium 9.3 (8.4-10.6) mg/dL Magnesium 1.7 (1.5-2.6) mg/dL Total Bilirubin 0.2 (0.1-1.5) mg/dL AST 46 H (12-35) U/L ALT 21 (4-35) U/L Alkaline Phosphatase 53 (40-150) U/L Total Protein 6.7 (6.0-8.3) g/dL Albumin 3.8 (3.3-5.0) g/dL POC Troponin I 0.00 L 0.00 L (0.01-0.04) ng/ml Imaging Data CT scan - chest: Attestation: I have reviewed the pertinent imaging results. My impression: I do not note any evidence of PE. Radiologist's impression: Heart and vasculature: Contrast opacification of the pulmonary arterial tree is adequate. No sign of pulmonary embolism. Heart size is mildly enlarged. Thoracic aorta and pulmonary artery are normal in caliber. Lungs and pleura: No suspicious nodules or infiltrates. No pleural effusions, pleural thickening, or pneumothorax. Minimal dependent atelectasis. Lymph nodes/mediastinum: No mediastinal, hilar, or axillary adenopathy. Chest wall: Unremarkable. Upper abdomen: Status post cholecystectomy and gastric bypass Bones: Unremarkable. IMPRESSION: No evidence of pulmonary embolism. Venous US: Attestation: I have reviewed the pertinent imaging results. Radiologist's impression: Right lower extremity: Common femoral vein: No evidence of thrombus. Femoral vein: No evidence of thrombus. Popliteal vein: No evidence of thrombus. Calf veins: Patent. Left lower extremity: Common femoral vein: No evidence of thrombus. Femoral vein: No evidence of thrombus. Popliteal vein: No evidence of thrombus. Calf veins: Patent. Impression: No ultrasound evidence of deep venous thrombosis. ECG Data Attestation: I personally reviewed and interpreted this ECG as follows: Interpretation: EKG by my read shows sinus rhythm at a rate of 80. T-wave inversion noted in 3 otherwise no acute findings. AL and QT intervals within normal limits. EKG 2. By my read shows no changes. Sinus rhythm is at a rate of 83. athletic monitor with no evidence of arrhythmia during patient's stay here Discharge Plan Discharge Clinical Impression: Subtherapeutic international normalized ratio (INR), Cramp in lower leg Chest pain Qualifiers: Chest pain type: unspecified Qualified Code(s): R07.9 - Chest pain, unspecified Patient Disposition: Home, Self-Care Condition: Improved Additional Instructions: Recommend continuing magnesium glycinate 300-400 mg daily. This should help with your leg cramps. Temporarily Dr. Briscoe, hematology, would like you to increase your Coumadin to 15 mg daily. She states that that she will then have you come in on ThursdaySeptember 11 for and INR. Return to the emergency room for worsening symptoms and as needed. Prescriptions: No Action cetirizine 10 mg tablet 10 mg PO QDAY PRN ferrous gluconate 240 mg (27 mg iron) tablet 240 mg PO QDAY lorazepam [Ativan] 0.5 mg tablet 0.5 mg PO BID PRN (Reason: agitation) Qty: 20 0RF Bacillus coagulans 800 million cell tablet PO Multiple Vitamin-Minerals Tablet 1 tab PO ONCE albuterol sulfate 90 mcg/actuation HFA aerosol inhaler 2 puff inhalation Q4-6H PRN (Reason: shortness of breath or wheezing) 90 Days Qty: 8.5 3RF sumatriptan succinate 100 mg tablet 100 mg PO ONCE Qty: 14 3RF Mirena 21 mcg/24hr (up to 8 yrs) 52 mg intrauterine device 1 device intrauterine ONCE Rx Instructions: as a single dose fluticasone propion-salmeterol 250-50 mcg/dose blister with device 1 ea inhalation BID triamcinolone acetonide 0.1 % cream topical BID fluticasone propionate 50 mcg/actuation spray,suspension 1 - 2 spray intranasal DAILY warfarin 5 mg tablet 5 mg PO DAILY trazodone 50 mg tablet 100 mg PO QHS 90 Days Qty: 180 3RF ondansetron 4 mg tablet,disintegrating 4 mg PO Q8H PRN (Reason: nausea and vomiting) 30 Days Qty: 30 3RF fluoxetine 20 mg capsule 40 mg PO QDAY Qty: 90 3RF Follow Up/Referrals: Prieto Hyman MD [Primary Care Provider, Internal Medicine] Stand Alone Forms: [facility] Info Instructions
--- NOTE | 2025-09-07 14:04 | CRLHL7_ITS ---
For Patients: As a result of the Century Cures Act, medical imaging exams and procedure reports are released immediately into your electronic medical record. You may view this report before your referring provider. If you have questions, please contact your health care provider. INDICATION: History of pulmonary emboli with sub therapeutic INR TECHNIQUE: CT chest PE was acquired with 95 cc Isovue 370 IV contrast. Coronal and MIP reconstructions were performed. COMPARISON: CTA chest 08/20/2025. FINDINGS: Heart and vasculature: Contrast opacification of the pulmonary arterial tree is adequate. No sign of pulmonary embolism. Heart size is mildly enlarged. Thoracic aorta and pulmonary artery are normal in caliber. Lungs and pleura: No suspicious nodules or infiltrates. No pleural effusions, pleural thickening, or pneumothorax. Minimal dependent atelectasis. Lymph nodes/mediastinum: No mediastinal, hilar, or axillary adenopathy. Chest wall: Unremarkable. Upper abdomen: Status post cholecystectomy and gastric bypass Bones: Unremarkable. IMPRESSION: No evidence of pulmonary embolism. Please note that all CT scans at this facility use dose modulation, iterative reconstruction, and/or weight-based dosing when appropriate to reduce radiation dose to as low as reasonably achievable. Dictated by Amanda Miguel MD @ 09/07/2025 3:22:55 PM (Electronically Signed)
--- NOTE | 2025-09-07 14:05 | CRLHL7_ITS ---
For Patients: As a result of the Century Cures Act, medical imaging exams and procedure reports are released immediately into your electronic medical record. You may view this report before your referring provider. If you have questions, please contact your health care provider. Indication: History of PE, subtherapeutic INR Technique: Real-time longitudinal and transverse sonographic grayscale imaging with and without compression, as well as color, duplex, and spectral Doppler imaging before and after augmentation, was obtained of the deep system of the bilateral lower extremities, including the common femoral, femoral, popliteal, posterior tibial, and peroneal veins. Comparison: 08/20/2025. Findings: Right lower extremity: Common femoral vein: No evidence of thrombus. Femoral vein: No evidence of thrombus. Popliteal vein: No evidence of thrombus. Calf veins: Patent. Left lower extremity: Common femoral vein: No evidence of thrombus. Femoral vein: No evidence of thrombus. Popliteal vein: No evidence of thrombus. Calf veins: Patent. Impression: No ultrasound evidence of deep venous thrombosis. Dictated by Speedy Yañez MD @ 09/07/2025 3:04:46 PM (Electronically Signed)
--- OUTSIDE RECORDS SUMMARY | 2025-09-07 14:15 | XMS_ITS | CCD ---
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 d 06/30 CBC w/ auto diff Patricia # (ANC) K/uL 1.6 6.6 4.4 FINAL Torsten Gatito alcaraz [place] [facility] , [address] [place] [id number] 0 06/30 CBC w/ auto diff IG % % 0.0 0.5 0.4 FINAL Torsten Gatito alcaraz [facility] , [address] [place] [id number] 0 06/30 CBC w/ auto diff MO # K/uL 0.2 1.3 0.6 FINAL Torsten Gatito [place] [facility] , [address] [place] [id number] 0 06/30 CBC w/ auto diff MCV fL 80.0 104.0 87.7 FINAL Torsten Gatito [place] [facility] [place] [facility] , [address] [place] [id number] 0 06/30 CBC w/ auto diff IG # K/uL 0.0 0.03 0.03 FINAL Torsten Gatito [place] [facility] , [address] [place] [id number] 0 06/30 CBC w/ auto diff MO % % 6.0 15.0 7.4 FINAL Torsten Gatito [place] [facility] , [address] [place] [id number] 0 06/30 CBC w/ auto diff EO # K/uL 0.0 0.6 0.1 FINAL Torsten Gatito [place] [facility] , [address] [place] [id number] 0 06/30 CBC w/ auto diff EO % % 0.0 7.0 1.4 FINAL Torsten Mederos [place] [facility] , [address] [place] [id number] 0 06/30 CBC w/ auto diff RBC M/uL 3.9 5.1 4.39 FINAL Torsten Mederos [place] [facility] , [address] [place] [id number] 0 06/30 CBC w/ auto diff MPV fL 9.5 13.4 9.3 Low FINAL Torsten Mederos [place] [facility] , [address] [place] [id number] 0 06/30 CBC w/ auto diff BA % % 0.0 2.0 0.4 FINAL Torsten Mederos [place] [facility] , [address] [place] [id number] 0 06/30 CBC w/ auto diff BA # K/uL 0.0 0.2 0.0 FINAL Torsten Mederos [place] [facility] , [address] [place] [id number] 0 06/30 CBC w/ auto diff HGB g/dL 11.3 15.2 12.2 FINAL Torsten Gatito [place] [facility] , [address] [place] [id number] 0 06/30 CBC w/ auto diff MCHC g/dL 30.0 35.0 31.7 FINAL Torsten Gatito [place] [facility] , [address] [place] [id number] 0 06/30 CBC w/ auto diff HCT % 35.0 48.0 38.5 FINAL Torsten Mederos [place] [facility] [place] [facility] , [address] [place] [id number] 0 06/30 CBC w/ auto diff WBC K/uL 3.0 8.9 7.9 FINAL Torsten Mederos [place] [facility] , [address] [place] [id number] 0 06/30 CBC w/ auto diff PLT K/uL 113.0 364.0 512 High FINAL Torsten Mederos [place] [facility] , [address] [place] [id number] 0 06/30 CBC w/ auto diff RDW % 11.4 16.1 13.20 FINAL Torsten Mederos [place] [facility] , [address] [place] [id number] 0 06/30 CBC w/ auto diff LY % % 14.0 41.0 35.0 FINAL Torsten Mederos [place] [facility] , [address] [place] [id number] 0 06/30 CBC w/ auto diff LY # K/uL 0.4 3.6 2.8 FINAL Torsten Mederos [place] [facility] , [address] [place] [id number] 0 06/30 CBC w/ auto diff MCH pg 26.0 35.0 27.8 FINAL Torsten Mederos [place] [facility] , [address] [place] [id number] 0 06/30 CBC w/ auto diff NRBC % #/100W BC 0.0 0.2 0.0 FINAL Torsten Mederos [place] [facility] , [address] [place] [id number] 0 06/30 CBC w/ auto diff Patricia % % 43.0 74.0 55.4 FINAL Torsten Mederos [place] [facility] , [address] [place] [id number] 0 06/30 CMP ALT/S GPT U/L 0.0 34.0 32 FINAL Torsten Mederos * [place] [facility] [place] [facility] , [address] [facility] [id number] 0 06/30 CMP Gluco se mg/dL 74.0 100.0 74 FINAL Torsten Mederos * [facility] , [address] [facility] [id number] 0 06/30 CMP Total prote in g/dL 6.3 8.2 6.7 FINAL Torsten Mederos * [facility] , [address] [facility] [id number] 0 06/30 CMP AST/S GOT U/L 14.0 36.0 62 High FINAL Torsten Mederos * [facility] , [address] [facility] [id number] 0 06/30 CMP Bilir ubin, total mg/dL 0.2 1.3 0.2 FINAL Torsten Mederos * [facility] , [address] [facility] [id number] 0 06/30 CMP Sodiu m mmol/L 137.0 145.0 137 FINAL Torsten Mederos * [facility] , [address] [facility] [id number] 0 06/30 CMP Alkal ine phosp hatas e U/L 36.0 125.0 60 FINAL Torsten Mederos * [facility] , [address] [facility] [id number] 0 06/30 CMP Calci um mg/dL 8.4 10.2 8.7 FINAL Torsten Mederos * [facility] , [address] [facility] [id number] 0 06/30 CMP GFR estim ate ml/min /1.73m ^2 94.3 GFR is calculate d using the CKD-EPI equation. FINAL Torsten Mederos * [facility] , [facility] [address] [id number] 0 06/30 CMP CO2 mmol/L 22.0 30.0 [...] hour stability window. FINAL Torsten Mederos * [facility] , [facility] [address] [id number] 0 06/30 CMP Chlor simone mmol/L 96.0 107.0 104 FINAL Torsten Mederos * [facility] , [facility] [address] [id number] 0 06/30 CMP BUN mg/dL 7.0 17.0 8.0 FINAL Torsten Mederos * [facility] , [facility] [address] [id number] 0 06/30 CMP Creat inine mg/dL 0.66 1.25 0.80 FINAL Torsten Mederos * [facility] , [address] [facility] [address] [id number] 0 06/30 CMP Album in g/dL 3.5 5.0 3.8 FINAL Torsten Mederos * [facility] , [facility] [address] [id number] 0 06/30 CMP Potas sium mmol/L 3.5 5.1 4.1 FINAL Torsten Mederos * [facility] , [facility] [address] [id number] 0 06/30 Lupus antic oagul ant panel DRVVT SCREE N sec 40 FINAL Torsten [employer], [facility] [address] [place] [id number] 4 06/30 Lupus antic oagul ant panel PTT-L A SCREE N sec 32 FINAL Torsten Gatito * MICAELA, [facility] [address] [place] [id number] 4 06/30 Lupus antic oagul ant panel LUPUS ANTIC OAGUL ANT SEE NOTE A Lupus Anticoagu lant is not detected. For more informati on on this test, go to:http:/ /educatio nBabyBus/faq/ PDT33t6(T his link is being provided for informati onal/educ ational purposes only.)--- --------- --------- --------- --------- --------- --------T his interpret ation is based on thefollow ing test results: FINAL Torsten Gatito [employer], [facility] [address] [place] [id number] 4 06/30 Prote in S activ ity [...] thromboti c risk. FINAL Torsten Gatito HINOJOSA, [facility] [address] [place] [id number] 4 06/30 Antit hromb in III activ [...] with an increased thromboti c risk. FINAL [facility] * [facility], [facility] [address] [facility] [id number] 4 08/29 PT INR panel INR 0.8 1.2 1.3% High In patients with lupus anticoagu lant or other anti-phos pholipid antibodie s, theINR may be falsely elevated. For such patients, it is generally preferabl e tomonitor chromogen ic factor X activity, which is not affected by theseanti bodies.Th is test should not be performed on patients with hematocri t <20% or >55% [facility] PT INR lab resul t note This specime n was collect ed shelly rojsa. FINAL [facility] , [address] [facility] [id number] 0 06/30 CARDI OLIPI N AB (IGM) MPL-U/ mL <2.0 Value Interpret ation---- - --------- -----< 20.0 Antibody not detected> or = 20.0 Antibody detectedT he antiphosp holipid antibody syndrome (APS) is aclinical -patholog ic correlati on that includes aclinical event (e.g. arterial or venous thrombosi s,pregnan cy morbidity ) and persisten t positivea ntiphosph olipid antibodie s (IgM, IgG Cardiolip in psj7SEO antibodie s greater than the 99th percentil [...] l informati on, please refer tohttp:// education .[employer]/faq/F AQ109(Thi s link is being provided for informati onal/educ ational purposes only.) FINAL Torsten Mederos [employer], [place] [address] [facility] [id number] 4 06/30 CARDI OLIPI N AB (IGG) GPL-U/ mL <2.0 Value Interpret ation---- - --------- -----< 20.0 Antibody not detected> or = 20.0 Antibody detected FINAL Torsten Mederos [facility] [address] [address] [employer] [facility] [id number] 4 06/30 Beta 2 glyco prote in [...] olipid antibodie s (IgM, IgG Cardiolip in [id number] antibodie s greater than the 99th percentil [...] additiona l informati on, please refer tohttp:// [employer]/faq/F AQ109(Thi s link is being provided for informati onal/educ ational purposes only.) FINAL Torsten Mederos * MCIAELA [facility] [address] [facility] [id number] 4 06/30 Beta 2 glyco prote in [...] olipid antibodie s (IgM, IgG Cardiolip in gwl7BCE antibodie s greater than the 99th percentil [...] l informati on, please refer tohttp:// education [employer]/faq/F AQ109(Thi s link is being provided for informati onal/educ ational purposes only.) FINAL Torsten Mederos * MICAELA [facility] [address] [facility] [place] [id number] 4 06/30 Beta 2 glyco prote in [...] olipid antibodie s (IgM, IgG Cardiolip in ewb7UOG antibodie s greater than the 99th percentil [...] l informati on, please refer tohttp:// education .[employer]/faq/F AQ109(Thi s link is being provided for informati onal/educ ational purposes only.) FINAL Torsten Mederos * Micaela [facility] [address] [facility] [place] [id number] 4 06/30 Prote in C activ ity [...] FINAL Torsten Mederos * [facility], [facility] [address] [facility] [id number] 4 Medications Date Name Route Dose Frequency [...] Onc Consult <html><head></head><body><div style=text-align:center><span style=font- size:9px></span><span style=font-size:12px><span style=font-family:Nice,Helvetica,sans-serif><span class=clinicalNote MacroWysiwyg id=[id number] macroname=PracticeLetterhead spa ntype=macro title=#PracticeLetterhead><img src=data:image/png;ba se64,rAOSLa3GZuiJSWGKXZqRZuBFMEWYGJIgDSXFFWG9Lq+MLCQGZMWSEIEZOC8WTAGCmOQEYp8oZUA WcoyLTUAMTJe7Q66lJwO cz9WjOgaddTKFBDGPYF21wNOkw5R6SYVxQ6oxUEWfm78hQJofWDAJOC3uVIAQJQeoKDatEHQ2FeRuwxg pTCCjQn4bWZn1aO4wtPR 1AJP7iFqqger4UTKkAS5rMZwmhvfxMHDmBaFobXr4tDW8zy0rSNOfWgGsBV2HZNTrxdFlZf7dSHGpITP tOpgiCGD4GJX6ZWX8PRV tQXLiQzB6XrVjRRAmFzVcYhRkLRFnIRYxEDLwCrE9rdDnLuWJYdX0oOyqajotHEV4Mck4kHZ6Da89o7r hgpRhr5SdJdB4XNdqLOY oCbFjaiZoMTI6siOlqE7azeGzZvW9fqAjAkOct5EfhKC8wE4qKNKaRufxNv26uM1iOfC9eWztwmd5mFH 8Zbx0iTE5Wo5hxg4yOO0 uHQ2sa12hqILsKyDmRA9tIWgazD0gRpDlCVIwjPGbTe9thOYurS6akujsTCRePBuftCWhkLAtAB8fPrX ygG5haoC1dSchpQ6ojS3 vJTLhtFIzHd4dmbQoLLAoJpZnG83iI4Fly7Wwr5zhnS7aTtXsOoJ5wHjbsrn3xSBZVS7fySY8aRzaW57 fLcIul7EsYcJxvX84OVL bOP4xZ10rBlLoaU9zlgA3b1YDsnQ1Oqo3zFA5Ne4ocm3mMK1nAQ3el84akAHzMkTvAR8aUOpcKB4KHVO gzCNtSAR7YI98VtYhtA3 hCoHaMJY0f4XDf83mPGSPVO4qEDPZpC26d4Bdu3IxBnPuXADiJNEckA87x0CvIOHtxI0iHnAxAMK4DMG zeCP9CjNxAiCvCSAfOqy VGRA6Vcm3WlWtMSI0YTGpBPwwkSrYd9RpOqhHDUTtREImDUOpBMImBTN5NDKfMuWqTFE9QvAlSmT0tTP 9IUV7JDXhjRJSGPRoFCE jOYPtWMFcVGB0MHCnLdAmVIM7NrEsFpAqGtedw1DcNCY8OlgzILkdA7IpEyJxhDbovY9yuJ9iRuQaqU0 nIV6uKH5oJkWqjU4vKD0 6YP9zcOLzH8GNBY5ttF3oQryjNCg3VJXnPkJyKR1hWJYuDFU3GvmvXUv5FJ46WsV8SLKyPkXwOXMpVUt dtY7TCoIfK0KiZL85SAP 5ErpedZ1fpNM1TVQaAhMhGNMaIsnpPp64EMX9TXp1RudyKHVlWvDwX3N6CCBeAvU7gORCIHoUhuajgW7 ovJVuI7JaQO94GPS7Yko zdR4zlSH2EWGeNoZwIIKnXormBb42EVX5CYa8XvtkTEXqIbZuF1Q3SLKqPe2xBPQnt1Xyw5wshFuWw1O 5yWNgpNIsZ5MvjN5zbt6 gPHJkZjpCYWc+AVamVTN9fDs+wZ1kTyZyMMf0DhC3M2M2GXMuXPGdKVN7YRBlMslLDNU0NsWVPeLwDRo jjjAaTtbjMcI5N1UwGgb CYWc+GJegoShqvQ9zyL7yNwIhO1AfUA11RY8hWWE9t4CaKaH7vX1vUA49CMtgnZ3dvV4nYDYfYiiGZCV +YYfoBMO6cBgmj7VDahO 4FFQ0nK4aLCNhanRvqQBsNySwpRQ1rAnoxeR8HD6kDCuCOEE3lTVhkBgdNjzmTuXnQBG3HLV0IPOmBQP rDS90IPa3DBMwSAqxSXB gZME6OhOcc9PNwbE0s8oipm0yAzFnWy9zZZ9kV5JjHCdwBYovUC9nHvwsWBFvo6ECsvI0p24npEuihrE SW6HovK5sIUIvQvLhEMn zeV4srH4mEODaMsRoDD8aF2oixG5dpNupKi7rAD6xWTR2L5CyWdC5R5urjV4LPlhtm5Uhupp+IDwvcmR fGtXvf2JuoFL2qB0pXcM 8O0WnJhrYIFG+CYfpqCr3nEQnXEEpQzX1L5zdFLUkKAKhZE4tFWBzQf3+duE0HGFWQfWLQXEImCjgmMN gFEcXwN/K+cF8fIP0SHZ obsWDOx/iMPWekRxrHFTxNwojfe4XOBalUSSbXNqgJ1fw/WO5bv7UkhfwMuUGilT/zf62x37Haw6+nXn zZpZgWRYwGAymNEAghEq 8EGzCHzAblAZlQHlYyYNVvXHxKFmrZKqjRZLOnuIBS2RLiMmlojMiXJNAbMGkHHfdeM0qLrB+B4NKtLy /lycIgDnW4zWLokTKk1a ZOD1hfm62IBdkoWCXo/icnE8xTB2KExHp7ozWEn1q2zg2ZFWtURTVHkLSmbBauzMGlw9i/zBpUmBgYEm BAJK3rKjA59s4r+futCm VX1P8TXw1CdRH8fKPcs5QZNQvLPZRnFwEsCjM4mdBBahePny0wUMFTsld0fTDFUjlLt9Y37IBWn05U5J LkiuEzv1r65ekWiXwhtO O5oPNDEEZXb5YEhKgGYjZrGIRr+LEEumob7+Z+oIQOG2dGUmGKwzDp5Wv+pGwQ3Ney3KDj2fs+8ef/Kr G7FbCsCSmzpNOFQAfFEA IOUGsbyo33/oLf/5BkMSEiRPH//STzRPuA3nDLyzvpbh+9bpXj+0voUpmLo0u11W1BuHY84QEJHCHfEo jCGv7iFjSWAt3rcN1dY6 7ht3ZddQ4M5JUE/SuvBtd60//R22qTAuLnT7L9ohYhyJhpryDBXHli5czzx59zfoKIx764xS/v/9nKSz vzxEHWQiiFBOsFJ8Naj8 qWSv1xsGmkCdaeu1ukdTnbP+/v7//rFUxig6mJM+48+fOb7dvh0FIplu2dHfhT+zetnvJnEaNm/yybGl jPvDLjqbrMwqIJLDny2q AgC9KDqS3/GOIWb3U+m9Y62KFClUaBuzQb3CVk5alsdL6XsBPCSHTBPENTZVgEGXYTJskWCz2SQxNYgb MXs0FI2zFD89kOQXd8jT Fv/fewKTfRgmsvF3XBzf7pHFhjjc+effR5LdUWOfBBTBhRJuhDU0MMnWMYnNVVfxtM7TTlYc7u+3EMf9 +eEcK1faft43zzJTzyx5 Ch6Gt9WeSmcsSt6Oh10N/ktTvOp2qHReyFHcjjEp0/3vcwr5TwRdl5dIg+7YdftHLG0jcYrTgLDPPt/+ BTynQYV6vvo95/+K5W2d Xie5IHSL3DGcwBpXef57Fz9Z5lqPMZcFLasv6+VyNPu06rkzoAjyrDsAPOASlCcd5Mej9subWSJNd/m1 jgOE0C9xhy8304hNNAvb RNXhXZr7hbgx5qh49ynZZnKrwMRBtVOLLN8XqZ6mU8WxcqWbKnSqgOJGYnZHSLaKxR1fsx2DScJwz3aI 9uISgEnl4odEj1OS9p94 0exJR4HvrkIc5hLp35HI9tw19s+Zl2QDdg/9+YeG83rm42r558k0Kp3YgqFPxw4/fth1/gNb5zV67gTz rQRgMQgihJYsX+/v6eXt 3zsqcb7eZxiEZFnoheugAfNmN5ajifjM7WCztvIULZGm3dEQcViTTiyfcuCBXhIXh0WmFK+GP+o4e6+n v2rQCSzuzgDmTcnM7sT0 oCt2Niwh75jbBwsjNw1pW2Po9eqNz8O5jFi0rkZjRneVh7H67qxkDK0TNIBCQefxaNTJp9VrRrBSkI+7 SxYsFicXHx/z9rVgv6Aq sGVdvXy5gCFu55rzQ6efWbqaOAsuSQvhq48DzztwwTRYoOrmmRB4YsWBnPXl208CVDYtrp43Y3CCbUxE 3tmQRz8h7b7Pk6rc2Phl I+W+AFRYGIYS+GTmqnI+ue1ufpS0Fou+K0KsMZuED2CMKwhcAdD6UDoH7fZmQo2+ql7v8X0xnzL7nl6Y JlVVhOtyv505yS+dXfyb bTxDEdmW03TrmUu3pGBylkKkF+a+Hz4yNAZPhMzb6qlxAsrBvZe002J0ZbOWxCMyowSPltw8djS7Nib5 nGCyAy0uXAGYNKjRYxTs 7NIKsXjVCoXs876+HRz9+BFPCQt5hY7GY1nl1LxPlFJGo5E9N285HPqaN1H04X1ESAJVGReARLmE53SQ WZ70scojX7upWbrlPiCE iIiZvr55pyf5amwcMxB23YxH5KxfAma2Uqk5bBxXr7a1xv9wfRD9tYQS41suZb7iMCpc2XpzmyhUxPNS /MZAHIEg40Zrwl48df57 DqDQWfF0mSAaN3wnoO/4gvV4/y67gZUSMEw3Fk2MrH+9Iq1FH/0B51FTjTRZf0bgXDOxgt518m4/nj1i /YYPKVSqHnAspSKMBgFA h5HZhq2Hqi48ZhE/R/MLBCgsDqSmpDMPUq1+pUDuk0Wz72vReKcxBmbZJYud2c2rM+/ZajAwOnnl5p4f 8JfARvDbpYhiRBd4DRWU zXk0z0PP9/wysy61fS5+4YCFHErY0hIQklMEAp8zGAix2xlDAEdVQgM2w0TW6AVPzQPQ19NSfTJmDalm KxIMPNGgjXg46Jk2+/fT f8rSBtec6lxsjzKAzwa2uh70GnB3IDy4+8Ehn877IXtGhugqFCOYYP+I2HELVDOCeCrTGmFtKOHnx6BS In2mEYdn4w7b7sLo1iGg uCVStoQVEwtx5ld93CvpfVy6dag8ufoo1gTflAMqqdOsuJwyTjz7soLO+vWCFhQGKokiStHdwBACTHzF B/MBbHyID0yw+kmDGE0o rgg5PCtqfyGhIpmMAIKjlOSkR6NOg2tHY0uSAvkSoijdQ9SNTGMPMWEXZUgGTwTUpCYVlDzmVMGN4rwJ wRMpYeERHxohLxoTJ4g8 B1tb+2ZqXYEs9pIIzxdIa9KXnyKizk6lWrJWsWsaSuG/tUSIJMim8DjqjXfwQmZAqs6ZdC55n+fLli5c qWn2bQHiehV5Lrz6b7fG cWwbCCYh7RjipfFcCiarxtwErOzQgTkBRVNdczyp9rdk91gwK59ruYPETQ6Zuuz4ZtOjoG+4/aNuyVfn s2Pm9n34nMzei6qnITSR AwCJAfFuNICQSiVAo/VH6fFm1vaNIWtfmCNTFi9tBGN0SWLsvT9+dQc7j4N4bw8Awjywel0TJdt/diSz jfTKac1sCEcigqBseu/A IKl/Bf+K9sCGeMFGiHBGK14b2H6TwgR23g/y5e+R2Nl4fA+qiX01fdgCBBM9f1i465YaSoeZVQJLLzii lYcSf4odw6rw18AQcq8p gTahUMtC7hHVS8glQIGJVgVTiyxfCnJqIK55+ichXujsobikftk0k7zI+/S/jXpbxKtOle/ggOn4rQNy o3CswU5nCvneetRtRSMu c1sx8EA5/CY6LX1cF4/YWTUpNbTSPPVo0BHAU518oYLi37uUuD2sKyyqWzNxPzbQSweR/Uz36/K9zpw5 3790/f/ZsyJmzi+bNW79 5ipv84RgPNi9v8NmMdReDhazS9PgcYdg/izA2ADKJDK+io8t6+kDy5sOyaDuckhrT0jshn88R7ong0M0 ++vnWK5xP1mK3IVDENW6 WtXD8bl1XWpJSjQJYpXjG/olFIzovV8r+ng2CJWf46NEqifVeMeoiTHrdRFgTDXIAPali3LjMOUqci7g oF1y6NcnhSr6al/cr+/v 69SVVRZh/UhoMeFHl74/CLW0rA2D8yhHGLjg587VPRtrOA5iVUTKxISPfY42CpLMdlK5dAlq3a+imzet n5akHe6vH9dVV7q9Bygu NFI1SpzsvSElXHhr1vMdjh6SmppnF4+xwheEMugTXMlF0Jyb68tBu4+0cv0Ah1UDh4lYBCC8GD4flju5 kVB5QZDHIAwFyXUVUban CJfDoWTGxmLpbWq1tzQsDll43xikrWBbCFWGKbFTzJqoMJV7IL/ijGKmdp5HKo0oEfu6J1KevBqx3H87 e5c3hH/FnOYQIskWrFnl 3MHp31ImBhjbShFzu0gn0o8Yb7pzLqAvSRjxAdl6mGbv4iCF6Li104qyWqb84iXmEvDd3zUadWapO/OV y/100zq29cWiczjplQw0 AtfjBU9aj365MkQwsWPM/B3MqMRPhonq5nk1bhyBXQ/34jobLc6rQ63uJe/8QEkeKtlzQNuqK253lAKq JW6qVItrnu4W9E8GCSZ9 nNk5Wq2wY4Cl8buL296nOd2wBMRLjio8kVExVkqIdmX+QDhqtHd9bVXv99awp+bhS7xhU5a0iUahgW5k 0HHAAHEJv/wRodEZFVqZ Vm8z4l3jssXhTf5yyUAJmr5T+8j2Jk4BYYZ2Caadfe8MbvUpv0BmeFRDO+00R5PHTqXNkGqluONSgLzq KCvvF0AsEo1vyRXI7ewL lXYWYEgArrC+TeZrer6jIymlGsyskv+6GgqfUJZo8Tbcp+LoI5ZcBp3bHbTCL/hmADDohH7rm3AF3bbq IsB2LYO0yPvGb0R//OYR 3qlNVWccnqwqguIpkt1SmCyiVLEAvWONxeOrIcXPLJHd2HyQuhHwi02O5oF5IHcJGo4sZrf+6taQrEvO 8oZpfzbAeC5wEtHMN7Rr QHqEqErEIu0JDf2Wt8rglpcbNHUsRR9Rn8RSfHBsTDcu3Q6CCK19Jka5+S5dJzXC0Mz7vS/reeWTRL2c o832hQEq8dFmEuMnfKSF JOkEA6Np8Eu1+AkB9CbyXz4BNkUZq48w2G2bs2ee55d2XXc9365AVAnndp8AQ4qwAnr+Ll7b4AdZ00sQ +K4CyAOtUFOY5NzynqfA faoEnD+7PDZeraGlFCBZzii2+Pfc8OMIRSAw2GtL63n/9SB44tPjKXyeIvoK25BHUsdHp0aaiviJFLAz Auc8F9vQKz97Hl5BYJnE gCoF5GUZjvI0taIzD1Zap0IJcHkaklQ0z2cHaK+flr8SfnxF93ziRNduQj8tpASwtgCL5+3pd+7yJjTm ja46RDHvhkjIHZh8BnTj CE1fICVIym43wsBVmDj1WEINIuLRFC/Izpk1DMrsULeFoKln6nq/ErBOOrmf2lv1Je3CzfZ8BJWrgnHZ /1ZGIwrXARs60fZPrHnI 5wArry+FmvZIDoZ7zqRD76lzG6+bz5RChbeAxmTaYAiO5x9wTnjLQdv6ci/b0QN+NzmMZQiyR/OOdQdO l2SIozpuQbLZtNxdO0R4 waw20akCElh5JgxmCjgb5KfQGsts6H8UTLf7Pe943S/6XgES3n+8+nyQIOX5dLBdTNpnB248AprEY10g bekJjtKCYiVfARcu7m7n DPkMOL/nd53MIlikNm01o7c9clCKjgSsrOMLfWjGv4sGuAVeYBzTsxSMPSBclBFppaYzYulkaOiWSiPI BzqmLsxSZvvZon6cbMvq u6Mtilo7jN75vcQqe9qGB0eVojWqQRy3j6WxYA5BXBtUzXwFUUh1hhQmRdQN5Bj5ApMWTg3Q0mmF3a3s kjHgh2x/9Esv4SoKo7Hs QHKYQkvQPHM0f+yDoQGeppccBvxlTPqQnfY9Aurc8sPSvQdywUMzTDHUtINZIu9GUwJjW658qNKYhD7X zK2dqUO1WcYN+IJRKpU6 xOuyrlduCHbLtScsIBKNjt7feoUaZPGgOeiZvik5aLDLML9O6Rl68U3BC/yz6q/B2uZkjcHY3XenvYxd C7eC8zIeAliDY94e5/2K 7t3T1nyLSPXKtkY5B7jF+QmEVHEDhDYUmKUIaFKfco0HFXnqU03OUCnt13oXCnTcsAjVNEBySfmW7kx0 fcbxR6N7mpgyjEAPFDEI LvwQ9Wk1GFoEWBH1YXNFMHKscIA8TeXcOpuC6WWx9Q6ip9tQnfoeXYQf2GZJQbSgMVZGPl2Wf4Xcg8Bs VlhaZhOAagnDjuw5nZQx mNfgt3m8oVtdYXGdh1Hl8VqVHOZ737KhYN32ROmiAmd1StpaOdlUK+fPyLONZcpWK+fviqsJBFMjPF0K rOUXXKiPywVstynIM91U KR0H4809KJ7f4TR/j62++xkyYIg6vYTmqcfGuzppRtPQLQXvZfwTWO9z88Yyfmq5oQrvCPBqnq0HqtYo 1F02QFxBRGuKMQuxux7R KlHrZQWLnY3zebxelpvAZ17zqS9wQOY8tzjFkVFylufY4C/UTDiXgsCNs5RuWMd5Db5ALl40dBf04ByD ttmMH+ed+G9gJ75k8w/A 38FH4qP5Gv8QMTC/PkTuWcas/Wuq7d45F219cDO+cwk3ybDJiEg7adnxzxOZBWfxdpVTpBg6mFL4vAoI hBcntN8h64uk6zleLQxT hUfvXTwdL6PzkSQNq+UPgKvjAjbYAYEzBd0RJ3J5qg13CJGcpTzbF75RODOlYpPzJGT0DpOvVHT77e66 DUZBrekK78Zw1j0yf6U0 UZHIkySDE/vtV6QfaM1nCQKXbmkhzBuHUfvm1LFR2FJXtRqIg2vAjZF97b+Pp+BZwIE0oaCCFriMQj1M zGU0zQCS/KN4UFt1Hu2G Brzk7TNhVHwPwIDQw2efeaZ/6zmkAm6KvCYVNncoy8t7qv39wtVkuECaqJBt256OG6+Qk1POErhiaQNM x+upXMRg7O3PM4+7d6tY a9TXQtK3ZHKY2gIQv6aPCa40mLe/VfZD5FMVhuXNJLXLo6gtDXvo2WrliAFSISF8TcKDq/Zq1rdl/JIF QbPRjtVpPUJZmr7//5wB AWa2ZVqAr1n79D9FzTt2g8xpRdlCTEmer/qs26QB2serryD2JjFZGKj8LU148ksZos92SuNxfN7X6jPO +B0xvfVlDVWE/SfPmuuy qzjqpYe4CYpSfyTOtOpHtcO72w8qGhEweh2BDpcOfoPsws1Mqr5Dc/4JeZ4nAKJGETMQHFYP/NYuQAyS Gb0LVvH3buH7DMesddtU hkemNRiMCBoHeYJD7+Umi1Wd07y34N59GxS5AyWc+sh6XjJurDy5gaq6iX5h2zTEJ3jqVJBkuv319y+D 7wnIqV4t/Apcpa2dPxLk wrc7uLDh8jErPQO2fIHLSHAQLUcE4g1RnKLDrf4WZw0eiSvRQL3JNdTacWugwEL84Kb21NeZP1x3TmzO wWb/0I2c9jlZywYo8l0n oUIMgO775fDx3AxAz39rXjubueAjM08qXw9u/cBuWhvdhs3Di2j1hk2f8KwBoNpqpTUOdP3kkEL1Nn18 HDovTHqIh6GX059W7x/D A7YQuQ0wcjenS9Hc/766HNNvYGn1Hebx9bR8L5bJQZtm9ok9/V2aIFOhnuZOKirT0lpyoFafUebUk1Ty x2dw9xdsufFlryOwFY1g NHCPWkgN5jKuPlsvn590b00ohZCS4/toSadMANS1KYeCFRUGal6WkflDu2W0IJjurk7b61+JEAJ284dH hsVzOIYLjPnZkkAOhVPb 1vbE0792TOSpkB0kf4vXi7R9oy5NjeGBsN6QKVSwDvXexfSjgmWaaPjuxUrLJfzk/88/dPr6+MY21eOI KV9033ekckPxVnaB37+x u9HetXTbiJozte4lhzpCj6CS5K4YnaTOBPF5os0OukYKYiC+v0CjomekWkgEO5917YYb3gVDO8kWki6D Zqijqm0DpGCd38ILzxUR ksQ80tQm37iEs2zsWLLkTB0OKAHUyomxNwQwf/kqrtETHBn8G4G+Nn/C48SSlbwbcqOYeaHCFh8Rl9Lh lshfGZGJgCM80/ZJD9SC M9zCMZlWHo8hRPHE22Gix4L794PSbf3f8uR4faCWaIpDaONl4jo+lDbWeJnzRsssnd7IuXpchpAxkS2i 2fb50Twz5tuilZ0o1fRM wwgLEG9NAnoF52ZfbYlkDVjDOiP9gt7jOxGp8TLUfjmG6mDLCxYINnIKjBaHW1Uso0F19y7lhtoiRlxs dyClf0Jibd9Ye6wpYGBc MAvjLYu2zEcLQSNTp0f1oah3WDZy+QNdtvmncR5VxXUWeD2DkNFC7yqKK12uZ+s7eweZGnuag5+YCwLP nGtUixrpaF96bL2k/kPv sxos3GQoD1vQq4SH0r5A95cvdbBJzZ13DF7/CWsCUBrDCwkBiQgJBkpxYqtFpxBWr+5CJrWy8BGvf9ni zzOmTqgNKluC7LaMGKhE hR7tCh0kGV27wL3I60/sxjr//RDHLqiRrqmyOFacrt6tJOKPlR3RklfEEqdFi+T0Ph2paGXI2iCh+0/T 8ssceGJ7uDcBofIxidNK +ZC0CUEIWktOjAsvCpdniAUJUx2ZOiZ9lZpMXNEXr0Sp5gU7oTuSbDYEFOUqiMSDTnlPOHyOfu7C0MNZ AOLjYd+qa18ivGvgZQwm kLpne4aCIGiE4/VvFmErn2aCWkxZ8sySQn2Q4Wf9LwSR87j0DNURLvBPOWAZn5hli0KXMfnvBfKDxBRY +7htVgxQGCZew2Xe4rZs n48aVkWTCEbGHXMFVF0Whlu5wZHla3TI7JgXxldZeDmVDpE1hQNNJPMvRUm8OvgPXewoXCQpJ4pdGPoD FJ5JH38eo3nqvVJSIkUp u4Ge8Uwp+jkbYez5X9PU/MdRsukmd8B8xXLTDUoO0YaBc0l87/zYhrVjAH5LZtNcCRiAZHfOePDEmMZo fDkrCufglElXKoJd2NmB oaJGW3Iqxh5amNNc8a8BYg5WQ+VgEKZtoTbQXMKc4U+0yexDMFdmsxdPjcVXyQn3KSCWWORMZDZkjdGr eejW3fxsqQNHO7VOVAnJ CvbDGyDgglbt1YiwFrmZbbqoeUBsFlxMwQR2b8790e4tltEahBiuyXtPacbTPLWUQZusvcMNWYVzrgEN yAYPlKtl2U+wcKEcXwt6 MabIkXF12E/cgnYaoXkfFckijfpc1/KLKeMkaCmyPM93lNhjmhZ83+QYwbP3CMoLvAm7sLX55O6fzaoo VwiGaHhJrct25M/dNLOn gDfT0oWEUj1qJJzKhERT/Ag6qbsu9jd9coFSjw7aWFaruPVSQiDDLVzkWuHBv4KKm2OJkje2VPycBF7C bRMVnU5d4UGm8NZh1hrt 4FuE6MDqqUUGbYiD3xNJxlv9vlxzc5Srv1ygBPZcaX+cQXBXVnoAdKNNAleRxYSLVUSNFQSntC5zlwbT fQIvOoFUjeLtCMRAkBPc eqNu0Y0oUndIFibF1uzurdbMNzoqq72gZr5qVsMHBLOBelNX6Q2lYNgsqbQYTUgwp6MfPQZzHIcpRsyk y4g4RXVS4WWj7s6oRl6M dFpO18puJ/WaTAawTZNE1pQWC9whl3AyOjz0CDuMFpHaSPHOPVZRdlfVEiolicsmqDGacwlHrFZ7KoLy AS4mIW1iUtDJtuT2xpg9 q69fF9+/SosAq+cQlg0tKE32S/yZbTRrGkhXb1I6JzrCw4MUgizN5/WiiVyTFfLCxNM2heXVMBKT1HbX /S31g/i4fxTWQiMuJvz9 d5Bhl1Gq0sfAFhAgLXZaChcFo3uJSE1ruyHUTAR77KXRUKhqYE5VQvTLvawh4/Qw1G4i5f1+sZcoG5dp yVy26stG4uVrBx7X3f9h SMMTvjur9qVKuv96+FaPXAfu++NaPAEDaRLjAw9K34CxB+zZXsy90LYG+7wO5jMvUk+U9e/VEAqEg+bV 860k0g2hLIqAuzy7tLuY iODX/M0ktTo2qeSHb22LNhHEir6JVogBmHgnBtFKhWZTn6SqkpvBvPQ0bgnJK4ykOAxnp8ck3mYFmGy3 7TPYU7wqGvSI+ZwI56nv iq7Ed5JO8Vym/1zRt7kdEoKqWNXdy6zvMUMEbFJ/Au3JoZOyFyUGamp6bQbKdunys8gFwZHRJML2ZZov 4VxKQgOw71yp2m3o36BW HKeruJxcJPWxZsWtE8ee89+tir00TipW2aWTCIsxhjkoHVlZoW/9pe/tsdl9gqW78p42uUZurIOQPIKj ZXqBs9ejLTIQyTmxFWJs c+2LxwpsUdBecGbs18rBTA3F7GBbOIEEnw5Yd/kej9bOZCFDKZGGmDyHBM06xVX75+NJ52bwWyikq2D8 vVDpydrLycA0lVmyhe8d Cax0eOisXlQ4+43Rsu+wR73TKdvqlqpt7Epd4/n2iAbhZKdrJQePRx82CDqXta+Z+iM01VLpOAEZEKn2 AEX8LEjAu+33IMoxLze7 NfNGQOGWOXSo9VQFTLqwePdNK3sJXFNMRXkJ//eLqf30lZBjNfef6OB/JrNOQjum6RI8rEU8tL+p1rFS bsk0ARcswochOZcAOwQA fi1CbushhoQEM6NY3eH/vNxDmyCDbjMhitIRcdaxHaHhFhuFW3IJTBZJZNKmyHky7/Uq9EJekj0M0bdC ZUqQOsgSol1M/r3lm5cw 4uz3CGwJoVQlxBHM3nv8VlfFQGiZLorc5eKmGh/FSyBgArLAwFkQ/frz0l1+is81UxbURHeXGBSsgftB FldsBQZAaNaXKoXMySb2 PUDr1DvxqepXLIXTUpt0CQxUSsFNIZRDZDbBTuOJ0BxndcxzkjpUiMOHwThnUF7kM2k7E8MHGbLx0lRM JKzJIrQYJBIgW+Pr5Tvj uq16pS6/6wtN4B0QYA2EXcUtRBbq/ZaRmMMDmwySqFA4kSCLZhCN7j2gzdGpXok53rmlsDomV8nohmNR cHHORiidPuNWN9EIPiIl X9BCi0jf0twHzdnwYeGkp3GOezquZNYBQwfzmTOoTh1ncoaf49cbI8Fv6+cRIgJdwkrQPgFPlNX6Mq8g X6Pu9YSsj5Kd7VQb0JYi ZmbQyj41R6gXyBSeSHM6p4uYV1FfsbOuFINMeQ+fJI26M/kUzuPzQMQGSFLgENaBGZw2NTOBflIVezBV 1xXoKYxWssDAfyYpfl/+ +/FeDt3/y9/MYF0/QaYqIQAsAIdfdq+qRYkJi3KN59j9EzsEeiKZg7dGrMRcGbeJwR5PVQZ87Nf/hmz5 ygs3nTVd4wSJCBPvLERL eI8Gea2mwj1vudAj4Uxpg1qWf7ZfWGbIekHK5jRTF7fLOOfZw5+NX6joRQCEsjgZkJXZYrNocWmfRIQL QerUxQNP1qU7pDfq6yxo 6b9m+Jry97BIfV3NWjaCP2c+NcjwoC0cfaaEikYOqwHBSI1+buZHrzFFbSWFBDFMMNnLjU1Bj91N3MJB Qrt4+o8oaxqHFmFCyZlp 6kpXN5n+i1+t/OuV9wo3/CLCHZQeWYNwWLOjHAIkLzw8JOHigyNEHwYJvyYlQ+dfgE9SvIz8xjOV/DHf v3Nn4+3mbpVOWYs05mxY ABAkAVapWHThoUM/pjUcAb96F/E8zsqA1s4i6/gJj4Pfzdw1B1esOWIUnG186hw1aIZPGLvBO/CNghYX BYEoNuImOwWBKDVhhYTC YClJLITqLxeKIXIXNjwh4TDAVvPQBHNpcDSVTZbJFCCwGauUZPMKLdeg7XYSTmETOSDsqJUJXAoRPAXc BnkLHOXNNyca81V2/Y/7 tMAyj0+iVNvSZtAsfOcaCM5Om58GbU5gcgxQey3PeQNaQx1Gn5mh56nt2+/mCX1HInWddPDDxaW2BKYR S8VJ5zOfZIipsgOAVZIH xt8uP+c/b1Y13yele5nc5E8oSvftmUE0PUNLPvb8NbBd0ji8gDLk0AeSnr698lvUFlgm7wAfhYs6ekkf 7fkelmMvf9rTjp3bQ5+v SLc27kBEx7xXurFjbaIw0tJxWKBR9c1z8rJl65TNQXi+oht507y3Uk4zIPLQfVyQT2xvaYq5v3wb8b4P i0OeSP877hsh9K55ZEQe 9UFNof6doKFSZbl0DZvFrLv15vfgSQPMmPcTIr3KauXkcLVyW8NwysBah+ttsfiwXURtFdDm04jAQpxE m5iHsn1vQLWyPIdFpuDw lsrViUk3JzYxWC62tz2DtwD/hCgywCSmV2E8evRQUm5b6KObVdQMUenAj1BQeYg0NEB0eooXwWdVA7+7 e69ur9+WNrepYEIex0Ep pmmavYpEARH9aMh928IzFVnE0+PV+wsamb7dyiskWNfSJu5IG1oWUtb6m6oQG3i895BGMP9YBD/V6/ZG Dh/zK+lel9n3ksd3vQXj /w8fCdQXAt3rlhSDP2R++6dS5c+Hyo7/9nqBOBxYEmm3+gkEY0MbVO3ebUVGOgHVR7UngK72/Q6eO/G5 yAmURuaaLq4UwajMuYpm zJrjAu1MB0NWtvIIfdaUbeWunYHkPwRdWZk+PHVOcWFOmTeO/aJ+bm/vj+ZmajAqSn0VU8PSoCy0me/6 fziuh1n88oGhn66Y88WH T01QH5MzcEk4ejPK/Ln/z+g2/3X/rQNmHOptI5p0nuC5p36vpqPL/r/ecB0BU96/qM0b0Oa22HuHU7ds Ol4V8MjEwx2gd0WTRxMC CrAo/e/WcLjAt3xg5Rj6hZe8mLbIbbMsZIdF3uCLFaQGHBKBCrRyyc1foVj31kN2tPqo9sSwGBUe7asA N2oRCbDMSh6b4/ElFRUZ NG88s5jIuvRwtKkTPj1f5R+HoAdnQgWv1pyGNk9AZLq7xoSMd+kKUrPYZeZiSYP4j0jkgflPrq0XkT7Q l5cDmwZfje1spZuWTEiM FYS0WTfGFg6hy9eEDGJFPzWJo22YXOqJSJS1+bLz95Jn9GRYwVNe9uxd1aPddFjkmEh8+UFmeQ3PDJT3 16lDQC5PmZmthMlK8hVs Kez975+8r2yPYxsqJpz9v/mwU523AIdlROhjV1Go5GHrhW5SEMS0wg4CfGFhwmfa4iM0Xsxkk7ITM94T Ib183mBBMrt1OsfwYjrn +4T1dGb5Vf5/f/dA01sVSOrr5dKwPUIkHyvf55AZEqfTnyEcWpMaanloBHYNlg/7ndRzhfel3WRPradz +og9550ZhXS+NWhMeHvb g/m2cQcpGdQKLf3a1md1p+Wpxd0YjKBT5xynWCZnhUkHabXryEIkOrDIZ1rhKVlNwzisNkiVZRs7p6lp AgaLZmpy1kkOYnvl9wci VUO0wABvY5Mr2Hy3tNwd9w/klQqjdLN7UxRXl8+bhiOgx5cGqxHU0RFQBSFzjOKNgIH8TuiGMnXYwFMC w87HKfNGjM4tvlLYUx/r 6swVINj0CHlt6qtPPe2bumACSvSollEATSkCw1qj2k3jwmVq8WkEg3dPy1qgg9nwlBV+uz6EODHRwLCR MLXsd0ch0XlYpbk1GEn1 GjTJlypg/bVHj2MoA7fLl6jd+gd2YEw35K3NcKMYxzOQ099yfylFK4c1f+c7t7RPgpztAH7enSvFdOPf yc3O/anzUe323/0oBCI7 use0yJ6wgMDBBCH3i+9tYZJoYgIPHISfQo4ttIjqj7+UxX5HkQVNEg1Y/5xFMnWj2yoAaMTwty87ana4 4oNycnMiIyGtXrwqFwqv Xj11pGRJa67uYD/7Ytr1v/359+o1NLZorvKIRQ1fStQLMQqMqP5Uvq6tQspy4+0hAMv8Xi5SbN1iTUFk C4INEAsQp8lEVoAkNzmr npej5xKPYxYdWuIL+/V8dlrmk8qGK2FDhDQjAdo02MpgJUdZZcm66m4ysGUXoXb/euZOcnDxpyuRvvvv IqzyujgK1j5du9NRhy21 /sVhcUFE/uWMKBglJVv42GsSU2m9+wR9vnPH5J1hWiCVRVMx7mMCxDkwgOcARPWRGobUz5xqFfSVW8AE x4+p1a/ALEBxy7Et9sj6 +SxWPXv4kfYh/4wz5Qw8gMjxsbWYUaagKIzcCohcW0Sa7nh4BQ6chTxbtOw60LNsrCLYzSUWq6adQB8P QkxNy3zmGai9nQ57JArc IwNMZ0xTo2d3nFJn9cYGHhrDbAA4lYem/f/lxGU96PuYApn70WIhg7fSL9rc02+aNm+qe1Ep16pZtFGd xWBz/Jm7nsRegX59x8AL n4DPccgmqUmM9rt0+SZIkmOsZGD1sSGs27bbd0CTslWyv0N94c11xrdg1c85ZFPfNYdhi2GIo90uoEm8 ftre3H/XNN/C+M4kOl99 3r0larQqoE1pHa4FGqP8QLkJEOw97e1FV1wL4oc0p+/v6+ik3Ub9SFHPiOd5fRu6TdlmPig27hzGlpkp TL+hv80ay8XIyVjl9NTA odBbGlATrXeatc4y73EiTm6Lscrg1E7/Ylo7MRSeSH57shgxD+9KIA8Txhub4Fk4n6CtEoMPX01TIv3f OLgQ6kVeoE12Pkn3oD0y eP/f4+/pt37rN/OCjhw/5ge034k1bYFMI9GXx0Dus2/j7+u3Y/kf+0N07d/r7+eZs5RbRvWq5T0KuQex Wq//y5Uvzg+BVbOS24Fj KCOSbAzxqlbpnt+2u270lmFk0gwpy4aR5ZCoSjP/k1tUFDQ172PNW2Osvksu9uGEEUbBGCjja4jYtS0N 98ffHyWq99dUd10xFcGX ff/utv6/f/8h4Qa51ftZARS7tsO41UuA0xoIwj3pUPQScT/YlSPguk7X4j/Zsf1+/5i72rOu8fuGIeIQ f1Qry9/ULqFotMzOzIDG aGHYqVdd2jS/Pe7e0BUnWaZU94EnYjTxWz4tyoi/pnwQM8zwykzzUOjBAwEb75rO6nRC++snf12/GTz9 ZHN+2dStf+M620gIh8NJ jxyqW84+RhAr90h+hXlhVSdi57qGsovPgvofQ9Uj7eqYSOWuu6wt1uhFMDX0ng79qCnD1sOi1cpOW4Fi 09VAonVUbvoBhVdID20E M4imvlPvWbSeJMQCB2zitE/i2kgU+Qu9y6h5RuSlOmuK4TflZOsDEAs0z7++f00agkkGOa4HsLaNc21k 715DGADRz98YE9JYK5ky ysg5TLnuKuEkM669WI1pH3HbF/QcO/Vy795YIodYCY/ZheEMTXQEo0sUMf7Cts1zb8AyoBWvogoESTPO EUuopgKtBJL9He2BGB0h gX/4H9x+wKvMRpKamxr+JN+36+UDuUGjz9l2rw7Cs+M2Bb7iyD11jHJ3Ya9bIkiLvSekSq09eUqkc6xn faIt5grDIj7nArbl7/rb su21gd15zq/btLQojDhqF8cY8kKkBii66gIDdHCQ0YtNmq7MGtKu86bxnah6UQdXhOyrspinliJqIIGT H8hzjPGNRhZy/AQpBqVS HLOlo5yFzZWj4t8hvGH3/fjEWPk0hc3vx5G5kIj1GI4/QmORqP63onhGAJk6TSbca1bkIk+fN9/L2zm8 THNxpNH8pd/Jb9w84Vyh HWv27ZKmS2Wr2pjL+Ih8z+blbj+3bqug34XGQ/o1c6Nsaf56kt/xuYXvMrOTB3j3AbWd4x+Z5SmXf/v2 +aspHCI4pVkcd/fr8MmK g2XgFsdtZ1Gs1J5oR3dn8+dJGuUnP1G6CoTrxjgMhV6oTkjsXTiZKHdPxlJPe5bjWVsuu2tk7vbqROma IIWphtuJuN43iuy0qZFq FOIvneXSbWYqDgECv8Wdk840PhhZh5018p9vYh5IJGe1eKFyylXTb47swuCv7O5oA7i+DBNQMrFe/vtU sbt+65eFZhteYYdeuJSY kCMMEXfUiZK2ocogwDE1+GYLzRvMHq04dbktsDDKFVGfZdhS4LxfLriUkCrvcgsS52bpeS5m8/9yZswA waOgQk3+PBd4+Mi9js61 UU8e5qjtRCRDMAOPD6KIIU2PSIE0+oZECxzu7z5/9XCRPDDSVQDSvRPJKxNPyYZnPLgvEPN9+ZEQkTdO Jc16iKRNK89jOXjzMpKs /z37x/EV+zZrDbY1vauTG+e8aUOku3JyrZV031ctKmq4fYvYoK5+fxdd11uapWLG2672msPWFcgKKI4c tF3GeRG3fZOSpoST03jR 334G8m7+/evWqX//+T6OcLLya5q1qzLjqWmbKx0gSdgjD7/fN8mW/sw4AlLIxNQFC1HEi/GSF0dkOibl /FuXiEZCmNL9vjsVZlSI RuI6dqVvAsGBM/nnyYf8muNa5KJU6oBgP/33dMDinDAOE1iQCVUU7c1/CiqBT7ip8JA0+flJUcIcO+U3 TMaCmUIp2rEEz9nqMH/b rBk9bR45y1uHtIkgvXgjnAvb9/Z/KvMEvT5Wo74KN1d0oJJc00pCTlmcoatNzWIM+5PRGZ4VXWKjhb1H 8St+DIgnf0Xmi7OvuXSB tVo/9/uhVmQfVJMlwM3W7G6BEd1i9sZTfwgLprjjdY3vEyLtyEDz2n9ggto3ICRBnuIpkr/HFAtEu1yt VEwAuXrhw6+HY94NdHlJ +5M85o0vDKUJtsKFoCkbARjb2N51F5Wm901bola+6Z/yi5dvH2G4pMmwIa89Atapb93Pa6LwMudGJGM+ /wkP30Gey9WpG651BJWw tpfTjj1i451/hT/VJ2mFg2+rVr//DatIWTc6tCJPhQai6yL9FiXtbDFXUjBoXth28qi1geMjCJc9o4KG 6oVC4+rd1/LcWzeCnZ39 2uITpWtbcm94BZEJupdYLEusdVTjfJuxDNCzSC/x54NvvtIeu55zJWjrPjwPz2JNUD/lt/tVXCPUbNOA 3Th4/zr4b+PunyMzMTEx IrN+aiY5JK16hr/nl5LS3Ue+TrzYuFCXDS1Mr/tbLWtDKqjI4Z0+U34s3d91w+Ob1m0k//QEWR0hUNnu x1seE1o96Z//mDQD4+vn 6+YO1MMOqhok93u/PGRkZ/PhVJTBE5z7m+HnMIcm1rZC/wsEDb++azqZPQGUPeZg0Vt+EhmZkZJgHGY3 VU2xQ8Rc5IlFIVfKEn0H 4tpi9GpMx0Riyn9hrtHEm8m6nTf5lvitcHRl3VmlPFmpu7NhoyanJRGMS/gnCJu7cu5ILPk6cdGH9tSl PSxaK/f7gH+3GTZrMmDk QAGWZ8kmeD9CW5uMSjYnIIf5we9ka5t/oG3s7XARA5L2rzWlNkU75cicV4Vl/vrpVocDCBLGbKGuKs1K 2pil0z5IlY5mslJ0bweu mdU1G6MT99DaMZKfRLbhk/Pj4+vG29IhR2Dp4p0F/g1mtYhFPGyzBVTsjTDHl6irXMJWBSbIiYcqwGbX yV/gpSuIbcoztMt5YAz7 XQXXGGTfKVeenZn1EvkC+/UHxfuyiVpTWb1xm7ImduziIqQs1SVOf28K4TsYflev2+yvq9f019JKFU3V xpv3anW0APOm6L70wy3S pnpmtdwAAiYmJr1+/DaNzBEqoivl3MuVXW9IpGf/ojHv9BTdLmYPrV8r9bdr5fW0yyQEkeJ3isG/AwIH 3CvBfa0tTcZp87Adb1oE sefOPTvZDGTRkcP+XLeLtHzS35fNEF8HV16gnE4kbUZZSq3Saw43qSB1LyVKG5SxCZfmw7+GHceMNRoP VDoWJ+c3mfVk2nRUTx/X x2Lpbf7nr1TD8cv74elPZ8yk6dhfEqa0jXwJftK2rAcEdIl4p/2dTUT67zf0yi3ceNkt3owf00BVdim6 +phX4IId2POiClU9kMgj UILNfY9yKvFbjK82APVFqVm1rL64kSRoomcKNWloXhCOPrCthXPsYt50SgteFjtwmB8Gc36NCSRsHPp9 4W8hhD02wUieD5DPZTXJ W37teMDvKzXxZrBrBscUVGHsunHBu/Gxtlk88ILvzl7Fy2JOkDbVo7kMqdXxPsY9tZlctlv11/d56GJ4 PCUlPS+M4bv/efYOHDvn BQgUKma2rp4bTMODSqBnXV5A7DLm4/9dn+MiRABD/7s1PRTX+qGNSoWLFPn3/9/6QWs8cB0fEswFtNz+ Kgn0VmHieZlj6x6mwyua viG4wc6d+s0VAirRhu5rDUNtqieKvS1EpXdYF4c8kUTRb0QpZjSfDTWg67SbguuZqWSrgFQtv+S369UW tLvtmg1og9d9/+lYQjo6 Gu15zw63iYGj8s0kqRKIJ/1cg+GArG9+wC7LhNZE/ruM/xZLWShKcwIgfDinqNETbWJQvp73spnT0i+m Rw91CctUm1KIj6bEhcXU eDn9vPIdHfcUV/jUUMgOX1Bmfu6oFp19xEzY6TRoj5GfPvp072WP8QuOxIyla1yo49JaZ00XpPdlDEx1 aPOC50SvK3r6QELtnKkG TbhVlkf78wuFdfdvfFKczEL1KX+ws3KF4O/esjwMqL25uXnlmk/3tPHbQGQ8ySDo0jmh+34LOpJR6ZgS g0lamhQ3RbUwvZPDhk7g x/PnI6NjGFYyJU2rggLJIec7uIoOcDP2jh/L4ib+dfk4do42qP0/mZH9Av/0I88xpXnAGm2quKpXAGCY HrYxTGr9dK6oSvQTNbOE MYvx6YKj6sBFtjllKdFnb/Sr1BP6oQcSclQ3RbVovdtNGtUdljgGgIaevIxmT9ExvKiDsPHLOyz9yomz yvh+yyTHAaDQaGaNlTID nz57/trxEohPKG24bzUjzphYXs/+yaNGzZ8/yDk1sRlqhBi11maqpaSEEvwLv+Cvwfyem3n3Bi/v27F2 6+JfuPXuYDzN/BB/3XnF 0sm292749jz58hurfec/pIkWL6FvTe1Mpqppu4ABtJuDJ8Mi7/urfV0VVEGHHFjRCjmjJSNrHUQxijpF ArO0rnn9im6+CUMA9D2x /2EAf3kCk2F2LisxCzUogWfhe0vqmqAKajf6M+eurteCQDIWDrCbHKGx36xOi6+0k9f3uZkwLW7pSnae wX13vTnWOYaZTgmMZrOi dit/Oyc6+sqWr6xGcqa072uCeSngaKBIiSq3xHnw9CHQkCmHHsf8YVDkSXiVJ99biOJrvxB3TtWwgnwr 0eopnVw00uMraAx34WyF bxCbkufynhegzooghDLGApBZiOFviCcBCBTzqiaAjXV6co66twvIk60JLjdNI6pKudSfd19ZMri4vwoZ a39au8/Zdm3myc5cwwOs 3AQChUFjx/YiO9OTiSH0H6i8u1i279POVPCia7+fPBw8Z+nTM31p3neHrZE0HlwWHPVQY8OC9JUPPemx OSVJ6LQY94mbwp5nm+9s 8zyW1OR18a4ivJjOXn0aDLxP2m1MnJjiYxu61c7/uIcsxhh3axk2iUYxnvHdsTCYU57MlYjprb7Tk5BH +kD8kX3vV/8iNznPowMH CpfG9DjiSKDeM8x+3Xz/e+mJ0IxfWlFx/G0gfvl7s5Bgqf1fY039rdFkdiTTPvhBu7BgIJYK47Zdx/1U b/t006Xv8T0JInQv8f+Y MVBkcvyN32jqkAIOqAIWYoocz20375JfW4vD+kc123yXGnGup8FyMiwN8uUrt/+9O0qBfX+GSBWEwGCx 18Jpn0lh2i0xrsS+io3l BqitKxaozRx2LizaMxaCL3Dn01rH4bEOt2n244ox5/N5hqCg2+/XdkyF24O3talF+7CrauAp3CAYU5Aq /gJGTr2gvms2qvsDSIIO oEzW4EjWzPYTt8vjo6z35n5d/AkBiYuLkH3/B2NEO9qpGsLp2B4ErNCEa7oEZMLpFlfa//Qvy0Cypi3u SlK4a27/w5kcEXHNx7c3 60QKmqDyyUF5+rIL7gASTL7l8HQHRCTPwTXa6PN8ML2181lpDt9Lt+FBvOALi3Nd+d/JvwjBMyNmzVme bhi2V8o3L9+/b+/cz8iv w83nuujyXXChC+yalYvUK3Jb1qcXrT4Sqkdb+dvFX9heXcOokzpdt/IUL+Tnwf+7evXXzZonESg/F18+ HupSmk9dXA0UohAXpCvr oXIIgTAvmFO6/lbmYgtgXRXWi3IGxv8WErUkS8HCjFNCHRkqG41Wo+SiJP8Yz79oxWccnROOP9Wkqc70 RRFFU/0Kij2cRkb8vTFZ m8M44qxNHghmg+RkIycrr2yIRr6SOkvw0IwZdpHxU38/eoLgCNLQeIgg5gxYQ6SbC4nFBTBa+VuVgI1l qPEGYkMrxrDKU4lrOygf Al9UtjxUewgPJToUVHDxqsC/SuZd4XcQ7Kx+cJyPYLgjtbP75k73x4abXl6qG6sqo2Mff5yWmm+FCkiQ rOh1xQkkqdwINydP8gGL S1QOhS5zKISu9cfTa7EbDegDHPNjvt6GLiOhWfYAxXKdtTuTo7Cxl2fcZ5eCfdKH5d9QJ788K7RZ0gpN Yju1/AICnp+exztmZ35E UvDxV/krLWBPi5zj2n/d9F402yrXI+1DxeQk7K/0IcTkF9cxmGPUiUVVzhuSekkg8w25vWwNMbz331pO Tz6XS3vjJqpTSmp3PXZM vDcdx/N0wIrqN1kfZygPTbo/mUmB26kRK0A5lpyMyLysqBMvCk7Zq0RDzNxKA9YkEiC36De249u9r667 t7Y3q5rCdJ3IwO4Y4cae bKaykeGAnfFIDiHB50CbaRcgc7n99U4w8VCNsAi3BQFmY8dkzg9F1lun9QDXK741bg2YsMaBjXNvOuTG oVUOjOaSb8b3hznTQYlT BSx7AWLVosc8Oab/htCh2QIEjIhz+fetW/dn8Njpy9ONA1y5j4sgJLbYFWx9AOrsuJopZegKXYdgisst CQaBe2h3hmatcxXabZQm 8LDy/qM0xZ0u+LD5JeatAadMYfxN4ChiD0oEgEVCaCb82CxzJiK0oyy6ydhsXGw8EYQnErx32dKwVDky ftk555/juQFHFb8nLIie v75EvEbNePvme5hYqxrEGEh8c3h71OIXzjPfHXVkXs81F9VPs0rIkuf5vrk3HdC45Rt6j5+ashli+PTp09m kvEcc5ba7F5yWKfyFiDX oyDtSE3o/ostPIDw24UrCz25aE6c1C6+mCYy4eykv7qjmfTB+SM0az0dl1SjUsN5Qlt5vLm252Sbz3el qeZylkg020ilfod2hm+g tSExM/E9c65dP67JEu/gR8/nHIJEogaCFdMqw0WpwZ6wjv/LbBXxYzrmbMhpUMkPDfvoL4V9rARPcQnU MgKbyF56bfFRoyh4waBU h1Af3Vb53vu/59zTIH01JhFXCXKuQ89pz/407n2VKWw2se7ubi1aerXPs/uVLl5k+DGHFtOEv14+FREV Smp48W6WAXzU7TPik0+7 jLHweeMh0GKMelefSMnCX1Oo4Of2fe1m86NBj3/9AEJvYJmEGt7hjJyEYiFYJIK5tQfdq9ZHVKMb8kXP R9/Hwf5VlKy7IkUf7W/v 5s+a4FMq1S+h7V4dFwZn2n7fYOyHWtMuctG2/f/e93rJBt0vz8yfY5mDRbarXOYXeOwEpVuGQvwsT971 5a+6cOVqNtk/zelIy4X0 c2ByroEhoWKU+EVZugltBvuaMlalhc3GoREDR4yeEeFaTOB96JM9B+ltTVysrAl8Jkk5+TbxAKKBIUqV SRT9+oSFfomHXli6WnUA nZHjp2l7n/DxjbTWAa8lhcp+7ju/BBEQaH96TaYLVMOiV7d36Te5tctracxRxFLY6YGo4OzJsgiBxfVd rUCQck2U/9d0s28NEWuP dWfEU3qlK77+xm2ck8qa68Rxb6SRVgGmdaZOYip8bZfvmXslfgGy8aXFUCNFPLogPXE0RipNkq3nfI4R grH3iBumnoXbe91hjpep 25IbNhTeV2n+GTBYWqStbrD4zB+RqEovDvOCCkbpAaG56DdDuyFKrqwF7rDjSr2at3tzjIdl1VuMYNJg AgAjssf3EazYoo+blKU0 EG3ag4SRpOH3vYCTOue4SnaKhCWVJEPE67yr6630tvrjXYup/7M7qm34pR/j5+uXRo3kwv/MQnB9xL/F 9RsSh8+eDl0VtaDN465+ fP3/57G0l46m2lNb6VtKMxQ337/ZGu7l2w3j7Kd7DveA7zlvi9CxBG7tDskJi6lp6zWCVNb8u/bOLi8u SZUsLH+WXSqUdOnZkWCb s2rUD+/viSmCFXIDXTz272eyYD3mDWdTe4G6+hbK0O7S9oPQmzhAbjz854slvq8y+8T7eG17z9pLVZMR AllLFWnKnBb9qq/zosZi EGEoWJncCT6sGL5OXOQ4fQu6rqTWGbSiMSp+/Ce4fGdAyrBvw8kXqe3ZvgDSzg7pgmxp4XKwyMGyWEbW cvU4rczru/+o517ngyc5 ev2/HSc2OWKLX0j4deTBJTr6pddvrSPBEQ/mDry6vOLb8AKvXLK5YkQPOdS/+/pyWY5895KFr0rlTYc+ 4BO4n6q83h+/E91rq7Fr zd5adIUGkknavV4ERS4+u+ZJZqDzJI8Wzisfpe9e1XHxVeIiTyKcyjcTvMaAPyDELp9F9KYhF2D17Jib 12JA1x0yzBlT54TT8g+4 tgXaOJKDxGGCPJfy4Ha2QOgORmtGdeW//8iDoc5NViJHXHIZk6i8wjtXdL8KD6Xp630n522SsXF4A90t CfzSpSI3UTAN9CRu4d23 fkxjDMHt2/8bWd1ez9JA3hqn6wNDkncoCPaRvG5+wPDmMlgF6tryYgwbin8cqECPP/4ED/6mPjLAs++D +o8bWv6I7imWBlPgRBGC DOCY0UJjzJXL40vEl12HSGfXHMdgy9q6O9uajfffny4Tej3Od47FyL2oRozBhwOgiKp0SPWDlJ57dAer 36gCBELBxbOmqcLv9TdL p2ox/4gGd5NWGn8I8xuLt2RlL06NRIKkqyKgnFFaoWDfM74gEDTMBFV2/8LIIq9Fu6+Mnl9sMVwdwBz/ Run4kwZHVDy8ecacOkAf n4avfit4FwPcA6+npO8xmhBjBoAvvxzH5+kqVq8HbkRpuMCs09uGWp+1nOqhVUrJO9izVq1TbDoGihpr 209PSDuw/QNOUWCxxcHD I4FT3UWuAi4RkqJdLxow1qSef+cJgMJh/A//Y+MjTr9F8biDXyuUjkPoipIDQQMxHBkyNYgDprAmUj3F UGrDCwmAwpQassDAYTKk BVrgVNqUgaIyFd8LUTtJYxpSkmIsegTIFKAyFBubBDhBmjPbRr4MOJpDBxmMxmHwxzZVEGGnCYieYVtG jyAwZp7YJQqOEnoQjuRx rhINZTDdUYwdAZyGdzZkEf3CKFiHZ+ya5dUqAvKEqJq/++HKrboqw7t8dPwo8o45g8+joKBKJ+vfvbyH Wbg2nRa/j4c68vNDD8kx 4C5qYyzSlPuF3Bxh17my5abo624ng5y5nHh5GMAGx043IngBBMdVoInSe4SCP8864fuekb2CALX1pm7/ V2LQx6krpHslXq93FZ7+ 9dxQzQBbCCYtLlidi2a2qIlVdcdw/XFwc06Hczlr+qR4+fPj/zOjSpcuuXbs+fr5Fuc0hRPKQuBd/7j1 79vzf//1mjT8RZVOJAGW AAIswT7dtzjUbWT8ArCqPKH7zAkCAT2GY4dJwQ7CGo0266r/+pX5cfhEDw688Ikgg1sZJCX+ePCkk/fL zwpMZdo1jPEoBaVKMxJp 4zUtNFaIvUD4jOa6ZEZFP4kDUs9bLss9YW6pLnRuEtwPXb8cRPYu606Jut0O1/VjpUWfS4r7Sc7SGRTI gxx9/1QzWq33v+NM4Y8Y M/ryXKRp5TCCD3GGaCszs+pXytHGG0mbyRUPIgRFihhO16hLjKXO+TxTNHEa28bB5ltu5054pR9OhYQ6 eKw3lycuYCsEwpAYOB22 gWpyYnnhe78xBc7r+4dOKnpsfKygEoo91+qvt87ZRltjxXleOKo2nGBDX9Iom5Gh7NHasGj/11385E1U //v179+1mNLVcAln053o PaLzU02edQqq6iqPttIn8+I2v9vi9qvePpPL/sVnTuZDq9qJ82tXWNiuL73UWBx+7kd44UpWoxYApA40 BNOuSLJwYrhc7lA/x4MG FLNRd7nBIHqggK6nWaWhgbtZZhXpHm7h3pEuhHy7Ina0Tyb1t5mfYMVFVt7dxLlK204/z2/pUaNvm98b 33ws/MoeyD2z642ZWVbu /SUtu8ob3U/Pbz58/VbL1dzhbII1xuWdCwPAmuVnygHHDdqR71BohCbdstBu7siBSVkxy3OVjSXlzSPy YWKtWrQYOHBgZGWkeumj YNm8rCTSzg5LIzYjo/IzibMPcDKWGvSnNhcGz2kg5nbPSDHLHNVwVIXSmg+pAuZScegIGCBwwEtAP7UX W62EwZ6ioW6Ei9FvwKJ7 1KNE0Li24wXi31rBXtbUfx4xd4tpJFBpGWXTBonx+45Y3jgn6u8wzLKIt1ViyNzFgZjBorOnrylTTc/P gTKrCLVOr6tgV6GfRcgD Fy4uClDTUPAf3htRhYFYVHH8xuaMnLDxHfM81Vv7k/Zlt9oLtZ1gIRzXCW329aeUecmnouXPV2/qVVsW tGmnF1Dz5KzdbsSz5wDe a4kFhnEcFrp8fKJp6+/coX0ZfQyMl5AkauUJuVMGXBJcpMu6Fat2Vu5MV02ABchPvhLId672bdeAqCPC N1WH7CQRMw4BuynRr6w+ es8tc9t3vJkDJlYbUpzKesu//nbfyIZnTXRHgHc4LgMp5fw9QiEt/++43WCzGNkiM4kOTJ1EXJiZRGty ZQ833v13Dd8NzBRxqxMs wa0j5RmEanR4/v/sE3pD651jJ1W+S1zQUr0Pzsz22498RJh3e6HmrcJ9DZQQFFe7HVRhSXBj+achkMoF RBLqWThxpYcVmn0uOJS0 C0MKgc3GDtWaAxTANG6oT7+LNa02h9i04bcCzskkl30311jYSlUVAx+xJqZmVNZjPYjMCITovZg48+Yn zpqiCsjNvYfEKzrQbHx8 XLUt5pgtkkkWwIoCbTT7xdycRP0yeR3ngrmrYFS9dmwY1TMbq0Uvx+YtUoUKF/FI22LWuWAMG30VtBhH AQ9sBpO6w3YCmC5Rql4w 21AbOArUq7BmoZbXMwDxEjA/o0O1EBuvNcAcPAj7b5td/+uqrnJycQhJ5+fJlMbNDCFnkCACxsbGPHz8 8Sx3uaqLh0Z7DdMYd3ky PcNasWbwkj4+BHiKW4ds9+vqacjRhNYUaNWoAAG8+O2GmEseJrEOZJbPwp4BqpmLOsOpg8ZGaFXJu8pp 169GjB+1ifIXQn903OTr PH/0r5tZnU4270300l+/uHJu4IQXVjsSmcu5YBKYTCTHbwjlOWEXMgj4kpLlwEc934bqggXk9ML5xMc2 hFxk7HoxaKyHFbN013Bj rmJrbxAgbA82uQF4UQfYwWXEaa996w4DrihEFVzCi420/++90oiSTELrVNPQqPhjbJG9q8khYGknbG96 DP0GbZGRr9Sl5d+a1mp2 h0leFm2JhBo61RgNw+iSl0K4N4vsRLVw3QFM4akTJ1+Nb3IpyBtJLzFw2SrPGJfELMh67tzNeIofh4FH fPow8hvb7DpX46L/3ily xFDCsxGkr0faqzRGR9oiaQZrFZ45qKMzxOYW6E7X5NJScENEwqyT2AMetnM/UvlmBJVgeak4A5iGGs0e EJQuu+s9H4W+ImTNnAgB IMm7plsOTeuo4Qc0x1gRj4xm+aoSfo9IKVWUMoi6p0x8n3Rte3re12eXzctA/FBMIXQdniSqUF8u5e3d +49atW/iLLMp8rUsXj4Q TercfIhIHAhTJZqD1hQdH99/Bqr5Pwios3P7LmtekGgL3k6fM/Pjcls2ZyH79l+kLPNCQg7dqoYgc1sw PbHJK6Zv2lxLx350SsYs MJ3v4nRDwYq3FJqBt3eR06hxUGxr2le2lDfT4ztd2rdPUVLTKw/yty7w088+/FYlEPj4+xm7U2mpD95l tG2+syc/z58+vXLlichM HgJ9++dvo9hf3sji+/m4n613huEq7VlcBahf2+/geIfCeCP3gRSkBcAtcy9K6Gj5ziQx3qatyjlEuAx7 m8onCdIQSL5zq0Ls5zYX /iYJBqN401t8+/qPowqVpOkwsWg5dkkHfemQCSc6h1r68fyIDMD1YAkOTvDpsOQlbuvJvTblwTKFVHiS PaNd3V58jszJLrwZowRY u3bu//vrr/WYynB8GnaMq8wgO5DnlAvGRJaVqhdsopCBy3qcgEcLKHiwiWYLU5GhJGU8PkJXkT25vjs9 wCZLFeb01SFXTFo1tg23 dsLbCfGpwC+zCwTrVBp22tAIb8W/RgeOuVwj6UtPZvHdJVisXzSBcmEeYm0BNHrNUhbAogTyeeWRMWZr ZRgkWGxOmdZyCc7DFSuA CwmAwpYb/A55RS/r4k2QDVZLQEGjVHrOwFpDY></span></span></span>
</div><span style=font-size:12px><span style=font-family:Nice,Helvetica,sans- serif>
<strong>Patient Name: </strong><span class=& quot;clinicalNotHaris id=[id number] macroname=PatientNam e spantype=macro title=#PatientName>SHANELL MENDEZ</span>& lt;br><strong>MRN: </strong><span class=clinicalNoteMacroWandrew" id=[id number] macroname=PatientMRN spantype=macro title=#PatientMRN>[id number]</span>
<strong>Date of : </strong><span class=clinicalNoteMacrDaniel id=[id number]" macroname=PatientDateOfBirth spantype=macro title=#PatientDateOf >1985</span>
<strong>Date of Service: </strong><span class=clinicalNoteMacrDaniel id=[id number] macrona me=EffectiveDate spantype=macro title=#EffectiveDate>06/30/20 25</span></span></span>
<strong>Attending Physician: & nbsp;</strong><span class=clinicalNoteMacroWysiwyg id=[id number] macroname=AttendingPhysician spantype=macro title=#Attending Physician>Torsten Mederos (Medical Oncology)</span>
<strong>Referring Omayra kang:</strong> <span class=clinicalNoteMacroWysiwyg id=[id number] macroname=ReferringPhysician spantype=macro title=#Referr ingPhysician>Telma You MD</span>

<div style=text-align:center><span style=font-size:12px><span style=font-family:Nice,Helvetica,sans- serif><strong>INITIAL HEMATOLOGY/MEDICAL ONCOLOGY CONSULTATION</strong ></span></span>

</div><span style=font-size:12px"><span style=font-family:Nice,Helvetica,sans-serif><span style=font- size:12px><span style=font-family:Nice,Helvetica,sans-serif></span& gt;</span><span class=clinicalNoteSectionVisible id=[id number] internalbreaksection=false originalname=Reason for Visit [...] brought her to the local ER in [facility]. Ultrasound Doppler showed nonocclusive DVT in [...] the thoracic aorta.
</li> <li>[facility] she required [...] with repeat labs.
</li></ol>
<span style=font- size:12px><span style=font-family:Nice,Helvetica,sans-serif><span class=clinicalNoteSectionVisible id=[id number] internalbreaksection=false originalname=Advanced Care Planning recog [...] pain plan indicated for today's visit</span><span style=font-size:12px><span style=font-family:Nice,Helvetica,sans-serif>
<span style=font- size:12px><span style=font-family:Nice,Helvetica,sans-serif"><span style=font-size:12px><span style=font-family:Nice,Helvetica,sans- serif><span style=font-size:12px><span style=font-family:Ar ial,Helvetica,sans-serif><span style=font-family:Nice><span class=&qu ot;clinicalNoteSectionVisible id=[id number] internalbreaksection="false originalname=Smoking Status recognizeconcepts=true spantype="section suppressempty=true>Smoking Status</span>
Smoking Status: <span class=clinicalNoteMacroWysiwyg id=[id number] macroname=PatientSmokingStatus parameters=ValueIfNull:Not recorded. spantype="macro title=#PatientSmokingStatus(ValueIfNull:Not recorded.)>Smoking Tobacco : Never smoker; Smokeless Tobacco : Never used smokeless tobacco; Vaping : Never vaped</span></span></span></span></span></span></span></span></spa n></span>

<span style=font-size:12px><span style=&q uot;font-family:Nice,Helvetica,sans-serif><span style=font-size:12px>&lt ;span style=font-family:Nice,Helvetica,sans-serif><span class=clinicalNoteS ectionVisible id=[id number] internalbreaksection=false o riginalname=History of Present Illness recognizeconcepts=true spantype=&quot ;section suppressempty=false>History of Present Illness</span></span&g t;</span></span></span>
<span style=font-size:12px><span style=font-family:Nice,Helvetica,sans-serif><ol> <li>Patient reported that she has a Mirena [...] brought her to the local ER in [facility]. &nbsp ;Ultrasound Doppler showed nonocclusive DVT [...] thoracic aorta.
</li> <li>Patient was transferred to [facility] via medevac helicopter she required [...] the History of Present Illness.
<span style=font-size:12px><span style=font-family:Nice,Helvetica,sans-serif"><span class=clinicalNoteSectionVisible id=[id number] internalbreaksection=false originalname=Past Medical History recognizeconcep ts=true spantype=section suppressempty=false>Past Medical and Surgical History</span></span></span>
<span style=font-size:12px><span style=font-family:Nice,Helvetica,sans-serif>She does not smoke cigarettes. She uses a Mirena IUD and norethindrone as well as oral contraceptive pills to treat endometriosis.</span></span>
Also past medical history significant for asthma.
Since hospital discharge admission patient has stopped eating oral contraceptive pills she still has the Mirena coil.

<span style=font-size:12px><span style=font-family:Nice,Helvetica,sans-serif><span class=clinicalNoteSectionVisible id=[id number] internalbreaksection=false originalname=Current Medications recognize concepts=true spantype=section suppressempty=false>Current Me dications</span>
<span class=clinicalNoteMacroWysiwyg id=macro_[id number] macroname=CurrentMedicationsTable spantype=macro title =#CurrentMedicationsTable><table border=1 style=width:100%> <tbody> [...] Tablet</td> <td width=40%>06/30/2025</td> </tr> </tbody></table></span></span></span>
<span style=font-size:12px><span style=font-family:Nice,Helvetica,sans-serif><span class=clinicalNoteSectionVisible id=[id number] internalbreak section=false originalname=Allergies recognizeconcepts=true span type=section suppressempty=false>Allergies</span>
<span class=clinicalNoteMacroWysiwyg id=[id number] macroname=A llergyTable spantype=macro title=#AllergyTable>No known medication allergies</span></span></span>
<span style=font-size:12px><span style=font-family:Nice,Helvetica,sans-serif><span class=clinica lNoteSectionVisible id=[id number] internalbreaksection=false& quot; originalname=Family History recognizeconcepts=true spantype=section suppressempty=false>Family History</span></span></span>&l t;br>Family/Hematologic History: Her sister had 6 miscarriages but no episodes of VTE. Her father and multiple members of his family have had heart attacks. She does not have any children.
Patient was one of her cousins was found to have factor V Leiden.
<span style=font-size:12px><span style=font-family:Nice,Helvetica,sans-serif><span class=clinicalNoteSectionVisible id=[id number] sport intern albreaksection=false originalname=Social History recognizeconcepts=true spantype=section suppressempty=true>Social History</span>&l t;/span></span>
Patient works for a [employer].
She does not smoke

<span style=font-size:12px><span style=&q uot;font-family:Nice,Helvetica,sans-serif><span class=clinicalNoteSectionVisible" id=[id number] internalbreaksection=false originalname="Vital Signs and Pain Scale recognizeconcepts=true spantype=section suppressempty=false>Vital Signs</span>
<span class=clinicalNoteMacroWysiwyg id=[id number] macroname=PatientVitalSigns parameters=LookBackDays:1 spantype=macro title=#PatientVitalSigns(Look BackDays:1)>Blood pressure: 120/82, Pulse: 77, Temperature: 97.1 F, Respirations: 16, O2 sat: 100%, Pain Scale: 0, Height: 67.5 in, Weight: 220.4 lb, BSA: 2.12, BMI: 34.01 kg/m2</span></span></span>
<span style=font- size:12px><span style="font-family:Nice,Helvetica,sans-serif><span style=font-size:12px><span style=font-family:Nice,Helvetica,sans-serif>Immunizations: <span class=c linicalNoteMacroWysiwyg id=[id number] macroname=Immunizations&qu ot; parameters=ValueIfNull:Not recorded. spantype=macro title=#Immuniz ations(ValueIfNull:Not recorded.)>Covid-19 vaccine (Moderna) (06/30/2025), Patient declined/rejected</span>
<span class=clinicalNoteMaSabra id=[id number] macroname=PatientOxygenSat parameters=Label:Oxygen Sats,LookBackDays:All spantype=macro title=#PatientOxygenSat(Label:Oxygen Sats,LookBackDays:All)>Oxygen Sats 100%</span></span></span></span></span>
<span class=clinicalNoteSectionVisible id=[id number]" internalbreaksection=false originalname=Performance Status recognizeco ncepts=true spantype=section suppressempty=true>Performance Status ECOG or Karnofsky</span>
ECOG: <span class=clinicalNoteMaDimasiwyg" id=[id number] macroname=ECOGStatus parameters=ValueIfNull:Not recorded. spantype=macro title=#ECOGStatus(ValueIfNull:Not recorded.)>Not recorded.</span>
Karnofsky: <span class=clinicalNotGrand [facility] District Memorial HospitalDimasiw id=[id number] macroname=KarnofskyStatus parameters=&q uot;ValueIfNull:Not recorded spantype=macro title=#KarnofskyStatus(ValueIfNu [...] <td>
</td> <td>
</td> </tr> </tbody></table></span>
<span [facility]=clinicalNoteMacroW[facility] health id=[id number] macronam e=RecentLabResultsTable parameters=OptionalFlowsheetCategory:Chemistries,Label:Chemistries spantype=macro title=#RecentLabResultsTable(OptionalFlowsheetCatego ry:Chemistries,Label:Chemistries)></span>
<span class=clinicalNoteM acroW[facility] center health id=[id number] macroname=RecentLabResultsTable parameters=OptionalFlowsheetCategory:Tumor Markers,Label:Tumor Markers spantype=macro title=#RecentLabResultsTable(OptionalFlowsheetCategory:Tumor Markers,Label:Tumor Markers)></span>
<span class=clinicalNoteMacroW[facility] center health id=[id number] macroname=RecentLabResultsTable parameters=OptionalFlowsheetCategory:Anemia Labs,Label:Anemia Results spantype=macro title=#RecentLabResultsTable(OptionalFlowsheetCategory:Anemia Labs,Label:Anemia Results)></span></span></span>

<span class=clinicalNoteSectionVisible id=[id number] internalbreaksection=false originalname=Surveys/Consents/Other Discussions recognizeconcepts=true spantype=section" suppressempty=true>Surveys/Consents/Other Discussions</span>
<br& gt;
<hr><span style=font-size:12px><span style=font-family :Nice,Helvetica,sans-serif>
Thank you for allowing me to see [...]
--- OUTSIDE RECORDS SUMMARY | 2025-09-07 14:15 | XMS_ITS ---
Author Name Interface, C1Fueuzrs lity Address [address] [facility] [address] [address] Organization [facility] Address [address] [facility] [address] [address] Support Name Relationship Address Phone SHANTE HERNANDEZ [...] 3.5 5.0 3.8 FINAL Torsten Mederos * [facility] , [address] [place] [address] [place] [address] [id number] 06/30 CMP Alkal ine phosp hatas e U/L 36.0 125.0 60 FINAL Torsten Mederos * [facility] , [facility] [address] [place] [address] [phone] 06/30 CMP ALT/S GPT U/L 0.0 34.0 32 FINAL Torsten Gatito * [facility] , [facility] [address] [place] [address] [id number] 0 06/30 CMP AST/S GOT U/L 14.0 36.0 62 High FINAL Torsten Mederos * [facility] , [address] [place] [address] [address] [id number] 0 06/30 CMP BUN mg/dL 7.0 17.0 8.0 FINAL Torsten Mederos * [facility] , [facility] [address] [id number] 0 06/30 CMP Calci um mg/dL 8.4 10.2 8.7 FINAL Torsten Mederos * [facility] , [address] [place] [address] [address] [id number] 0 06/30 CMP Chlor simone mmol/L 96.0 107.0 104 FINAL Torsten Mederos * [facility] , [address] [place] [address] [place] [address] [id number] 06/30 CMP CO2 mmol/L 22.0 30.0 [...] hour stability window. FINAL Torsten Mederos * [facility] , [address] [place] [address] [address] [id number] 06/30 CMP Creat inine mg/dL 0.66 1.25 0.80 FINAL Torsten Mederos * [facility] , [address] [place] [address] [address] [id number] 0 06/30 CMP GFR estim ate ml/min /1.73m ^2 94.3 GFR is calculate d using the CKD-EPI equation. FINAL Torsten Mederos * [facility] , [address] [place] [address] [address] [id number] 0 06/30 CMP Gluco se mg/dL 74.0 100.0 74 FINAL Torsten Mederos * [facility] , [address] [facility] [id number] 06/30 CMP Potas sium mmol/L 3.5 5.1 4.1 FINAL Torsten Mederos * [facility] , [address] [facility] [id number] 06/30 CMP Sodiu m mmol/L 137.0 145.0 137 FINAL Torsten Mederos * [facility] , [address] [facility] [id number] 06/30 CMP Bilir ubin, total mg/dL 0.2 1.3 0.2 FINAL [facility] * [facility] , [address] [facility] [id number] 06/30 CMP Total prote in g/dL 6.3 8.2 6.7 FINAL [facility] * [facility] , [address] [facility] [id number] 06/30 PT INR panel INR 0.8 1.2 1.2% In patients with lupus anticoagu lant or other anti-phos pholipid antibodie s, theINR may be falsely elevated. For such patients, it is generally preferabl e tomonitor chromogen ic factor X activity, which is not affected by theseanti bodies.Th is test should not be performed on patients with hematocri t <20% or >55% FINAL [facility] 06/30 PT INR panel PT INR lab resul t note This specime n was collect kelsie rojas. FINAL [facility] , [address] [facility] [id number] 06/30 CBC w/ auto diff WBC K/uL 3.0 8.9 7.9 FINAL Torsten Mederos [place] [facility] [place] [facility] , [address] [place] [id number] 0 06/30 CBC w/ auto diff HGB g/dL 11.3 15.2 12.2 FINAL Torsten Mederos [place] [facility] [place] [facility] , [address] [place] [id number] 0 06/30 CBC w/ auto diff PLT K/uL 113.0 364.0 512 High FINAL Torsten Mederos [place] [facility] [place] [facility] , [address] [place] [id number] 0 06/30 CBC w/ auto diff Patricia # (ANC) K/uL 1.6 6.6 4.4 FINAL Torsten Mederos [place] [facility] [place] [facility] , [address] [place] [id number] 0 06/30 CBC w/ auto diff Patricia % % 43.0 74.0 55.4 FINAL Torsten Mederos [place] [facility] [place] [facility] , [address] [place] [id number] 0 06/30 CBC w/ auto diff IG % % 0.0 0.5 0.4 FINAL Torsten Mederos [place] [facility] [place] [facility] , [address] [place] [id number] 0 06/30 CBC w/ auto diff IG # K/uL 0.0 0.03 0.03 FINAL Torsten Mederos [place] [facility] [place] [facility] , [address] [place] [id number] 0 06/30 CBC w/ auto diff LY % % 14.0 41.0 35.0 FINAL Torsten Mederos [place] [facility] [place] [facility] , [address] [place] [id number] 0 06/30 CBC w/ auto diff MO % % 6.0 15.0 7.4 FINAL Torsten Mederos [place] [facility] [place] [facility] , [address] [place] [id number] 0 06/30 CBC w/ auto diff EO % % 0.0 7.0 1.4 FINAL Torsten Mederos [place] [facility] [place] [facility] , [address] [place] [id number] 0 06/30 CBC w/ auto diff BA % % 0.0 2.0 0.4 FINAL Torsten Gatito [place] [facility] [place] [facility] , [address] [place] [id number] 0 06/30 CBC w/ auto diff LY # K/uL 0.4 3.6 2.8 FINAL Torsten Gatito [place] [facility] [place] [facility] , [address] [place] [id number] 0 06/30 CBC w/ auto diff MO # K/uL 0.2 1.3 0.6 FINAL Torsten Gatito [place] [facility] [place] [facility] , [address] [place] [id number] 0 06/30 CBC w/ auto diff EO # K/uL 0.0 0.6 0.1 FINAL Torsten Mederos [place] [facility] [place] [facility] , [address] [place] [id number] 0 06/30 CBC w/ auto diff BA # K/uL 0.0 0.2 0.0 FINAL Torsten Mederos [place] [facility] [place] [facility] , [address] [place] [id number] 0 06/30 CBC w/ auto diff NRBC % #/100W BC 0.0 0.2 0.0 FINAL Torsten Mederos [place] [facility] [place] [facility] , [address] [place] [id number] 0 06/30 CBC w/ auto diff RBC M/uL 3.9 5.1 4.39 FINAL Torsten Mederos [place] [facility] [place] [facility] , [address] [place] [id number] 0 06/30 CBC w/ auto diff HCT % 35.0 48.0 38.5 FINAL Torsten Gatito [place] [facility] [place] [facility] , [address] [place] [id number] 0 06/30 CBC w/ auto diff MCV fL 80.0 104.0 87.7 FINAL Torsten Gatito [place] [facility] [place] [facility] , [address] [place] [id number] 0 06/30 CBC w/ auto diff MCH pg 26.0 35.0 27.8 FINAL Torsten Gatito [place] [facility] [place] [facility] , [address] [place] [id number] 0 06/30 CBC w/ auto diff MCHC g/dL 30.0 35.0 31.7 FINAL Torsten Mederos [place] [facility] [place] [facility] , [address] [place] [id number] 0 06/30 CBC w/ auto diff MPV fL 9.5 13.4 9.3 Low FINAL Torsten Mederos [place] [facility] [place] [facility] , [address] [place] [id number] 0 06/30 CBC w/ auto diff RDW % 11.4 16.1 13.20 FINAL [facility] , [address] [facility] [place] [id number] 0 06/30 Antit hromb in III activ [...] increased thromboti c risk. FINAL Torsten Ng [facility] [address] [place] [id number] 4 06/30 Lupus antic oagul ant panel LUPUS ANTIC OAGUL ANT SEE NOTE A Lupus Anticoagu lant is not detected. For more informati on on this test, go to:http:/ /educatio nCyber[employer]s/faq/ [email or web address](T his link is being provided for informati onal/educ ational purposes only.)--- --------- --------- --------- --------- --------- --------T his interpret ation is based on thefollow ing test results: FINAL Torsten Ng [facility] [address] [place] [id number] 4 06/30 Lupus antic oagul ant panel PTT-L A SCREE N sec 32 FINAL Torsten Ng [facility] [address] [facility] [id number] 4 06/30 Lupus antic oagul ant panel DRVVT SCREE N sec 40 FINAL TorstenJosé Luis Todd [facility] [address] [facility] [id number] 4 06/30 Prote in C activ ity [...] ations. FINAL Torsten José Luis Hurtado [facility] [address] [facility] [id number] 4 06/30 CARDI OLIPI N AB (IGG) GPL-U/ mL <2.0 Value Interpret ation---- - --------- -----< 20.0 Antibody not detected> or = 20.0 Antibody detected FINAL Torsten José Luis Hurtado [facility] [address] [facility] [id number] 4 06/30 CARDI OLIPI N AB (IGM) MPL-U/ mL <2.0 Value Interpret ation---- - --------- -----< 20.0 Antibody not detected> or = 20.0 Antibody detectedT he antiphosp holipid antibody syndrome (APS) is aclinical -patholog ic correlati on that includes aclinical event (e.g. arterial or venous thrombosi s,pregnan cy morbidity ) and persisten t positivea ntiphosph olipid antibodie s (IgM, IgG Cardiolip in seh5POI antibodie s greater than the 99th percentil e; ora lupus anticoagu lant). Internati onal consensus guideline s for APS suggest waiting at least 12 weeksbefo re retesting to confirm antibody persisten ce.The Systemic Lupus Internati onal Collabora [facility] immunolog ical classific ation criteria forsystem ic lupus erythemat osus (SLE) include testing forisotyp e IgA, which has yet to be incorpora aries intoAPS criteria. Low level antiphosp holipid antibodie smay sometimes be detected in the setting of infection ,drug therapy or aging.For additiona l informati on, please refer tohttp:// education .[place] [employer]/faq/F AQ109(Thi s link is being provided for informati onal/educ ational purposes only.) FINAL Torsten Mederos * [facility] [address] [facility] [id number] 4 06/30 Beta 2 glyco prote in [...] olipid antibodie s (IgM, IgG Cardiolip in gnn7PSX antibodie s greater than the 99th percentil e; ora lupus anticoagu lant). Internati onal consensus guideline s for APS suggest waiting at least 12 weeksbefo re retesting to confirm antibody persisten ce.The Systemic Lupus Internati onal Collabora [facility] immunolog ical classific ation criteria forsystem ic lupus erythemat osus (SLE) include testing forisotyp e IgA, which has yet to be incorpora aries intoAPS criteria. Low level antiphosp holipid antibodie smay sometimes be detected in the setting of infection ,drug therapy or aging.For additiona l informati on, please refer tohttp:// education .[place] [employer]/faq/F AQ109(Thi s link is being provided for informati onal/educ ational purposes only.) FINAL Torsten Mederos * [facility] [address] [facility] [id number] 4 06/30 Beta 2 glyco prote in [...] olipid antibodie s (IgM, IgG Cardiolip in ubu2XAP antibodie s greater than the 99th percentil [...] additiona l informati on, please refer tohttp:// [employer] .[place] [employer]/faq/F AQ109(Thi s link is being provided for informati onal/educ ational purposes only.) FINAL Torsten Mederos * [facility] [address] [facility] [id number] 4 06/30 Beta 2 glyco prote in [...] olipid antibodie s (IgM, IgG Cardiolip in cgi1BTN antibodie s greater than the 99th percentil [...] l informati on, please refer tohttp:// education .[place] [employer]/faq/F AQ109([facility] s link is being provided for informati onal/educ ational purposes only.) FINAL Torsten Ng [facility], [facility] [address] [facility] [id number] 4 06/30 Prote in S activ ity [...] thromboti c risk. FINAL Torsten Mederos * [facility], [facility] [address] [facility] [id number] 4 06/30 [facility] other lab See ring attacher d 06/30 [facility] other lab See ring attacher d 07/03 [facility] other lab See ring attacher d 07/06 PT INR panel INR 0.8 1.2 1.7% High In patients with lupus anticoagu lant or other anti-phos pholipid antibodie s, theINR may be falsely elevated. For such patients, it is generally preferabl e tomonitor chromogen ic factor X activity, which is not affected by theseanti bodies.Th is test should not be performed on patients with hematocri t <20% or >55% FINAL [facility] 07/06 PT INR panel PT INR lab resul t note This specime n was collect ed periphe rally. FINAL [facility] , [address] [facility] [id number] 0 07/06 [facility] other lab See ring attacher d 07/10 PT INR panel INR 0.8 1.2 1.2% In patients with lupus anticoagu lant or other anti-phos pholipid antibodie s, theINR may be falsely elevated. For such patients, it is generally preferabl e tomonitor chromogen ic factor X activity, which is not affected by theseanti bodies.Th is test should not be performed on patients with hematocri t <20% or >55% FINAL [facility] 07/10 PT INR panel PT INR lab resul t note This specime n was collect ed periphe rally. FINAL [facility] , [address] [facility] [address] [facility] [id number] 0 07/10 [facility] other lab See ring attacher d 07/17 [facility] other lab See ring attacher d 07/31 [facility] other lab See ring attacher d 07/31 [facility] other lab See ring attacher d 08/29 PT INR panel INR 0.8 [...] collect ed shelly rojas. FINAL [facility] , [address] [facility] [address] [facility] [id number] 0 08/29 Misc other lab See attache [...] Onc Consult <html><head></head><body><div style=text-align:center><span style=font- size:9px></span><span style=font-size:12px><span style=font-family:[place],Helvetica,sans-serif><span class=clinicalNote MacroWysiwyg id=[id number] macroname=PracticeLetterhead spa ntype=macro title=#PracticeLetterhead><img src=data:image/png;ba se64,hRFXFw4KUxpVTQZKRFiNRaOTZLGNSMQnMNIXYWP3Wx+GZLEAKXJVUIEJIO3KHNNZsYJWXb1rITH HojzSHKMILWu5K59zInB gk3TeGgiyyVLQOIVQPJ71vPJsy0K6GGMyS0xaYSJdx77iPYraSAQCUG7gEXSXUKqcZXzoZOV0YyByrxt hXRLgMh2mRWu7mA9yhKT 8GNM7cDyzyss4LQTzFU1eTMsfrkdnFXLtNrTbtYw0cHY3ly7kQNSfQcNkPL3AKXYzyfEsRx3fLHQrCAJ aWhgcROD1TWZ3OLJ5IWL rRFBhIyQ3SjQjNHFtRiQmJcCrXHKpLUEhCIUaWvW0fjWuLdXISvW3vTdejdkwPKR2Jir2xQF1Mc11h8w ihtBry4VrZgJ1WIpsUDF iToBnooZiRJQ6cjZvbI5eyzMiHuD6pxPdCsRbq3JpmQW3bD4oPGAmVewsVa49gJ0cGhJ9kQmtuzz6aAO 9Dso2lOT4Nb3jwf4sAD3 rBA7jr02xpUVrYiVyYX4gWQmrhO4bKaJfORBldDDaKz5wpHQgpP7eqkgqPULlZXgpfMWspRAuQO0wDuM yiG8xzkK0vTjqcF4daT2 dKZSnlEPvDh0vvmRpRQZaUuUwM27cJ1Imz4Skp0jrzI9vXpJeZlY2vYjkvqr2eQWYPS0jzEV9vZkwK06 rXfGxf6TxVgSbmP05RXO fEW3hK02iBwCgmF1hqvB9k7VYngL7Fzt2uTH2As7xud4tTR0sMK7ac40okAFmUtSrLN3kYRfsLG8ABWH yhZRjETV6LX29RrIgsC3 eQpUvSQY9e5AYu05gGENCUV0xYVXNfS76u6Hsy7XxDyNsWZWzBAEngN68c4ToHJNedN7yGqXuHNN6XWF lkAG2QyOsLqBuGMHtXjr SHIG6Xvc6MrWuSPG8VILxJJrwaFnMi5IuEqvLMXRvLGZjTREtURCbBLP0ANSwNsBrGSB6XdHjBcF9qCZ 7XME3NRMhiAPPSYAdMNX qFTBwPTGtMEF1KQMxIxToSKR6GmQjEdQrOljas9ExQSX8WirvWVsvY1QpXeUflZvlnP7kmH0mLtMonY6 zEC2fRB9wMlDxbI7qST5 5ZK2vvBBcW8NLUF8soL3jFuifDSl0XICvAmYuGR0hMLIoEHZ5GvsuJQz8QZ70EgE4MMShDoBiIRXrXJw vaO5EQwOrW6ApJJ17ZAT 5QmmcqA1grLO4SLSfVcPsKMQuXpiaEl76TCS9RBi0QagwDJDeBzUeQ8F1ETSvTqS3lZCVJEuXuxvxnJ8 zmGPgD8XcVC46WPW3Muy bgJ7ioPE2MVKgSrFnRRAzHswoQo68CZV6VRf7DdynONVsFhKcC5J5ZUOtRu2mVLQdw2Frq5dwxPaZz6O 8kKGfoLJnP1JsbC7dkl3 gPHJkZjpCYWc+SJcoGFW5gWh+tG8jWvHxVXn0WuO3B1W1LPBeMJAvZHX9CJPaGigYVSF5VsNWKzVpWIt bxuDjKhwvCtI3X1VuHip CYWc+PLfleAkmdH1yuQ4rYpCwP8ChAF54UC4vBMM5m2HvPcA2mK4tLB20AIheeH4roT5zLBFeTtgRQMD +ZIklNEE4xDpiq8XDzpI 6RPM7vI2eYWDckgJcqIOpZfKypFI2oUmjmaC8RP3oYRrVDJK5oCTfkNseWlvwNsOuVSE5UMH2MVWpHFB uOH16SDm8PRTqIRnsYKG aQQC7HrFgd5QWinF0t1ujvm1iLfHsDm6dVW0bT4KfDVnlEOplUW7oUzmdJZWep1VFzqO4e92efOizbhJ AE4EbrM7pRPYpRuBwGNh szB7vcJ7cMYTzCxCkIJ5tB9urrR6dfTqtPc9oZU9iMXB9C2SmWuQ7V6vdbE1BIezry0Weedk+IDwvcmR cXpOmh4VjzCE0rB4qOfL 1D2PzAvyAGRQ+NMklpRy9zZRoPHCaHmA0S0yfWCJnTANwMS9lBGBnKx9+obD8XELTNzNMASEAbIvslPY gFEcXwN/K+vE4eKL9QTS obsWDOx/tORZmkKnsJAGoPrcarm7ZKVqfQRRoGAztG8gj/JK2vk5TqonyVcIWxzZ/dn08o81Gnx8+nXn zZpZgWRYwGAymNEAghEq 6IZbDKxXnpPFvUCfHlPEMtBLgSZbjYVnbBXOBhdRLU1GFhNwjehJgCCLOzEOaEQlnzI2mTtC+H4YRoEh /tztJpTiX2jHPudUWt0h TUT0ysg69XBaujBVAz/hmvH9qJQ7OYpAp9jdNKm7x2nz5YDUeTRZNXqTAmwIrsiWGce7o/zBpUmBgYEm BBLW7dWjV24o5l+futCm MN2I8ELw9NkGD5fQQyf8DQHJpOMJMbEkGwZlG1jzDBcdlNdj2pRZVIqci0sGRWEeaFd2V28FRJn52X2R NmpsRol4o74okTpCnntX X0nYVYPJBKk1KQqYcVDmEfWVDr+LEEumob7+Z+nVTUC2bMYtEMlxIi8Lz+lShM2Vth2FPd7lh+8ef/Kr L4McLvHUrroDXFPNrIBV MTTDdtst89/oLf/5BkMSEiRPH//HKyAHqA3bTYbcgvlc+9bpXj+9geHtpZf7u10I7ZyIG27WDAQMCvQy yMFi8dDdYQQh6fhL8lM7 5bz7BudF6R1RNJ/WadMux91//I01yABhAyG4H9kvQtpQqpasEWAZvi7xmsk88gngRSp363tS/v/9nKSz aluIBBNfdOJEmNB6Cab3 aMSe5lsQqpCsixj4fmzJysG+/v7//jMQqti5wLD+48+jUn0zat8IXkwm7oLopF+zetnvJnEaNm/yybGl zFtTXsyxaKieHRRZaw6z VjW6YTsW4/DIERw9R+t2X95YHHjPpZjvTk5CCu8oataA3GoVWZIZSSNKFUPCjOYBQSYzjYCh4MXlNKnb QGp1FQ7yHV12gQPLs8jP Fv/btePIpSpfxiQ8AWjd0fAAgvzj+zpsA7NmHIKxRDRWcTWouIY7HFrODAmFIWmwsN3FVcIk4w+3EMf9 +qRxS5sczn69agPKihf6 Sl8Tj5FcSderGk3Ne91E/kvQfKm8fLUveQLjfmLq3/6nspp4NeMxn3eCu+2DietRRF8loCtWzCMVEc/+ MHrfOYC6fxp29/+K5W2d Miv7DEZH3FZtsKwNwe84Nc1F4dcUMDxVXhoo4+NwKDw39ckipUrnbZuMINYNtBko4Igr4akqGAPXm/m1 ogYX6L9kyp0721qSDGxy KISfDMi2ewjx2zr08qkZJgZqbSCMiBCEXJ1HzK4bL8SxhbBqEwDtyAXJWnVSNZrYlL2mph8DScOme6bY 5tDArOmx4tlGe0ZR3h22 3sqRD1ZcagLv3vLp28FC3wp69p+Nw9QLdj/9+CbJ26ev53q202h6Wh0NeqCPwl0/fth1/nHx3pD38pHl rQRgMQgihJYsX+/v6eXt 7loddv6bLtxRTHsizgkmSoJwY5cjcvjH9RSiroDOAWMg4vLSiQpNUetgiqNOHjCFe1NzWM+GP+o4e6+n x1wJJFspexDePfnF9uX4 mXw2Vohc47rmHxqqZw1tI0Kb7dzHi7Z6fNm9idFqTenCe3C99wyxKJ6PVTCYGrxfmWVRy7CkAiLJqN+7 SxYsFicXHx/z4mXqf0Zs tLEjsDn5dHLs67dnY6xpFwonUJwpRFfft40WmnpwuPPRhVyliVC0MvYOiOKe048BAYRmpp58I8VEeIqR 6jtSCz7a6g4Ju1tm2Eug I+W+AFRYGIYS+GTmqnI+uw0skfL5Vqi+C0JvXRzYG8NVEebuTwN0BMtA7wGrIp2+nu1o4E8pvzW1gr0K NiFEpOvtd876nV+dXfyb bDvVXqgF70HfgYw6lDUmxcHbF+a+Io1qGRBBdBns5ljoFwwZfEe966B6VsYFvEFxadMUnnx6ugI9Paj0 mLVwLf5fBWMNQVhZEeRg 9DUGgAzSBvFq228+HRz9+IYIUUh1jP8JZ0uw9YvCxURYj5G8H138RHpnJ2F39H6JJSCKCCgXUKfA38XT WP27jvfhH0ehWmkbRhYA uFxVtb79fjx7rofqGpY23PyN3GhySog6Olh2sXjUi0n2yq8nqEM2iLNS73niMu7fPAmf4XzibqpBbHTD /WDNQVWi99Qazn80cb71 TsDGRxC7bJIeM6kteN/4gvV4/x03yMSFMWv9Ka2SjR+9Iq1FH/5X08DSiHNAu4wnWIWgta051j0/nj1i /YYPKVSqHnAspSKMBgFA d9PLou2Exz89OtN/R/MLBCgsDqSmpDMPUq1+qXEjm6Ln86oSwAriLcuYHEgy2d2oC+/AxyOpVgbk7q6x 1CrSEcVslJmrSTp8NQCD lMp3l8AQ2/xhqe83kC4+1UMFLMeI2eTPxhPPEh1mLTob1woNIIuZKlZ0i6IW1THMkDEU44MGkPCdTepc QkGQHVUhuDi60Nl2+/fT k0eOTffh8pqofwCJcua0aw88MoX4YGf8+3Wpl468QApFqkznRTWFLF+M0SPESTYJhEnMJtTrCNFeq8GR Qd3tMTss1z6e6jIk8sAs sEHHupBQWhog7zt15NmocNv8pwk9xlgc1yTinQViskNleUfrXoa9viUE+vWCFhQGKokiStHdwBACTHzF B/WMgOfEJ2vk+kkLDL2l bxw9QLektmSjOzzTGAVsdKOxR2RWo1kLR0cHVibBegpmJ8DFAMVKFXVCEZaIToWNyRLZsEazAOBR1wfW tSWyHaQCQhrvPilWW9y4 B1tb+6KvDLMv9tZYlreZu7MHsuYldj0yFqLEcWsaJwO/iRNFMNoh6AdfoRdqExGGwy0ErY86n+fLli5c dAz2aJUlscF5Tkv6n1nM jFmwCGEx2RxgymPeGmiqwrrMqQoLyYkBBMXsozdm9pua21waJ96wxWRVLZ7Wxvv6GgHnoE+4/aNuyVfn k2Ja6l51qCfeb2zxFDRZ AwCJAfFuNICQSiVAo/LJ0iXy8pvEKDasnDCNZk3pLTI4BPGrzJ6+uJi4m6Y6jz6Oqadxvd9PUif/diSz eoKSwo8tXJtesuQibq/A IKl/Bf+B7rNOvQELuMHOW53a5L4IwzX71i/y5e+N8Cl7zA+ptX45oikQAND4c8p920DqNqiBTRXSHukd zBaDe2jbc0lc20JVhd9l jWyrXVzP6pVTS2fmLANJLmJOlcdkTpNlHF10+asqItsknrdzkdm2o1hH+/S/jXpbxKtOle/fxJt6pLEe j8EyjX3hDnjqhfEfIJEo k6nr3FM0/GN1VC1mU3/EWXGzMuULCBEk2JGWC850iUOu31hKtQ7oTbifUqFtVtbETdnL/Uz36/K9zpw5 3790/f/ZsyJmzi+bNW79 3izl64EnEHc1k5OdFuDcNsbqK5NzgEsw/eyL0MLGUFT+io8t6+vAi3pCueEzjavoV1qszv85E8ske0H7 ++ocXJ7iS7fD0WWWWRL7 ZjQH5jl3ISgMUmZMJmHqU/xxOUimnT1p+ot2JPWn82BFvsdShTiuaKAutOXxEHKZPJpns2ExFYLhkb3s rF2u9YaskNq4wh/cr+/v 69SVVRZh/BlzMdOUs45/VIW2zO6S6ygNXHqd221VUEscMS5oJZUVlMABkT05BlPQitT2vVht0w+imzet s2vmNl2lH2xAO4c0Hmsv PVV1AvbqhFTdWTun5aDadh1ZqybbP1+uqznPCqkSFFyV3Mpf68cSv7+6dp0Ua4JMx5kHHPW1IH6kjxx9 gRN8IYCHMWkIpCUBDxas WNpGpHSJhzVmyQm5qmEkYbb64yyigJPbMREDSzQQqGqbXZS5PJ/lcFJqbw5LDg3hSox0W9IrfTfp8B50 e5c3hH/FnOYQIskWrFnl 4VRl45SkBprrLnZje4tn2g6Fo8oePbDqXGsxFit4dCiu6bAT8Xb233apQme02aLjKqDk5zPwrBoaU/OV y/835oy44qNlalbhyVj2 YpssND7le302HbHhoSGF/O2GqHCUsydc8eh5brfXRU/51uedUr5cW40nLs/0CPksDeajFEktH217nNUb EU8dEAjhnx5M5X2PXCY9 uVf4Da3pY0Da5heK797tSd5mIKBZmdw6rGUaDucRoaS+FHxvvCx5zAJa21khh+soI8tdH1w4nXmcqT6b 0HHAAHEJv/wRodEZFVqZ Yf1s3v2nsaDrJn5uyAQWzm0J+2l5Ti0BMTU9Xsrsjz0LavTjc0OmlFQJY+11U3FWGlEHePkipOYQfMgy UIuzD2ZbYz9obTLI8nsA lXYWYEgArrC+ZxTcar1hUpujNsygne+4RihjYLFd9Okui+IdN0IvVi9oQaRNJ/aeRUOjxT6no5CR1pep FaQ1PXN6qWjZa8J//OYR 1yzWEZjymxlhpeJlms3BdYenICHBaJXTftJkPpPPSZQp2VrMdbGfh38F8hB8CWhZQv4uIws+6taQrEvO 0hZwltzXpA3bNdTCH9Do JZvNfGoXTl6CRx7Ke2oznmziLBCkXV2Rs5ZMeELdDHsm6S4NHP06Gnd4+S8iNgKE7Jp0dW/kwcFAZA0s p266eLMf5wFuOiEktHBM OKiNS2Iz3Yq5+JdJ6AaaKv7HNaNQi02q1T2ge1xi84c5JIa2113WHGydtc7EH2haRmx+Mn5z8FeK20oD +A6TuDGnGXCY3NhdxfzM faoEnD+6RDIdpdFaUJEKifr2+Knw6QTMWYPs5KbU02u/4DT72yYwZHhmCrpD67OQNbuDz4olbezFJFRp Nsr2F5bFZi70Fi4XDFdL tAqW1DULdiG2hrKeZ1Vwb9HUlVkjguR9s5dQdC+ckr4XdgcP95hwYAvkOh5mlDRihnDC1+3pd+7yJjTm um70JQCxxciPLPl1ZoJv XY2gTTJMzq09zyCWvRa6NITFJfSCHI/Nvhm4SVksUZlKaVeq9hb/NjRMMyxk9vh7Nq1BquB6UDMbqcLO /0LCAxfCKEj67xEZrYkL 5wArry+FgaKRCzY2fdRN96eqI6+mx7BJzgdEncAxAIxW8e2mWmpLHwq4uh/b0QN+NzmMZQiyR/OOdQdO p5KAeaweTsPNkDkkP0T1 bjk08cbIUje6UadwDovx3TqQWcrh8I7GMJn5Hw288J/5SaDS2w+8+fiZAJV4fZPiHThfQ057DpmQL45j idgJzrKMYhWiYRpo5x1u DPkMOL/bx58AFhuoCu38z9e7myNRwfBztBESiEvJk5cKeSRjHPuYnvNKDFBrmISjmnPxZtlazYtBUiZV QtgqEhkAKifEzs0cjAtd p8Nzawi1tY93krOti3wWW5bWxgArUDg2b8SlEA5FEUlTmWcTCPy3enAoMaMK9Cb1ImXATu7G0bkZ9x0b raIcg1k/1Ujt1FmEm4Dh WCWORrkQSFA3f+wRrREezxatVbjlQRdTseD4Sekb4zIJtAaarNZkQVDKmVOMOk1HPpVoN847dCZBjV4N lI6tzUG7CdCQ+IJRKpU6 xTimatxpTXqEzZfmZUZEot1bafGsQXJcGltBmsk8eJMLHP2P3Fi37E4CX/yz6q/J8aIvffUX9ThdjCfy F9iS4mTyFutLJ57r6/2K 8p4D3mjBDOSUerM2G3fK+XrDDJYSrMOBnWVIrFTwhw6NYBphC64KIJef70dKChAlqAcUCGDnKcsC2yx7 ixpwH5K2fmjttJXGVFUQ GxeL0Ty4WViJOEE4QEEJGUNltZR7UjVrMahT9JZn3P9af9lMrsspLKEd7FBFUzGiUVLRUs7Nb1Uhk0Iv OeddAsVXajjRpvv3tWCi zRmoa7l7tHlbZUPii0Wi8EiCWTQ964HwWS99AEtmInd8IlthQzqIF+fPyLONZcpWK+oovhnVEHXaHP8D oXYKXVrYmwPpqqqST81K TV8A1938UU3j1FD/j62++zomUCj6jASjozgGytwkFqQUGZEgTqmYSR1g84Kmuyy6kGytABCghq7JpbEx 9N64PAuGTJzOJJjlfw6E ElVhNFUVvQ1cqdtcoojZT73nzN3oDJY2eqfUsSHytduD2S/YFXkDakFSi1GsUAv8Kf6ONf81lCq19BdU ttmMH+ed+H5bP01b4t/A 22GL2eS9Bd2WAGT/PkTuWcas/Zfh7r70N206wAQ+aty4tkYVkMh3itgnbiNGIPvegtTNfGj2fGF4wYmK fVnajZ1m53bx5abdUCtS qFvpZJnpA9UnnZEXw+UGwMkqSpvTYVDuVh4HT0V5hw72TXJysLtxY26OVGHqJuYzXLE4YcHvXPR20d92 HHUMikeI61Bq9s2ty5O5 UZHIkySDE/hwT7CegO1sBOJFbgjaxKgHByes4YOD3WCGsMbYe5fXyMH31s+Pp+KAkBP4osWDVqkJUr0F iZI4kRJM/HI2JSj7Hc0E Qxds3ICvZExPyREPg3mmsfN/6rmyBj4GjNNZOcgbq4k2td62dbDkpLWfnFFx074RU9+Ci2DJXgfptHFR x+ffOFDi5T1XS7+7d6tY g7IYAqA0ZTPU4kGUz2tLUc65yXd/UeAX2PUQvqZOFVGAv1dsNCqk5HebnAJRZCH6PbQNy/Zq1rdl/JIF QbPRjtVpPUJZmr7//5wB ZIb1HWwDd7p74U5VyYe5u2wcZtoUAYygj/tq81DT0wkpheY4UlJHHLj3MZ390qsClr02PjAxxZ5V1xQQ +A4jpqIgLTDF/SfPmuuy kybyeNt0FZjLilACgEdZmwN39o8wUiDbkp2HEsdYecJzly5Siw7Wl/6EkO9hJLJXKUEVWPCC/NYuQAyS Vt0HVoB5ldN7KUaetraX hkemNRiMCBoHeYJD7+Zgs0Qz58f54V75OiM6OtFx+kn2SwKpgSs0ltx3yV1t3gPBY9nwXOJtvq970v+D 5ylXeE8o/Ndeid8lZtBc qic6cDHg6eFzWUD3uOWSHOBSJGfM7x2MjVHFqa8DKz9beNzJFP2YTxFsaMyzkTP86Cx05UtRK1x2ZhgD wWb/2K9f4qmQulJr2a9z sIZRmM455fLz2GjHd81nSxrstyDmW98wMz1j/sRfNlyend4Xb7a2xh9a0ZsTmQhybAFOaS9aoTU1La88 QJpwZMeQe2SM285Z1f/D V7MIbW4spjdmA1Cq/880TYEoNYk4Dlpc2yB4E7mYMBld3yp8/Z8oLYRehtRDStcK4isjmMelRriTt9Eh b6mh6ysgtiIsswJaYZ0l QOMVWhvO2jXpIaxec106y57ucRQO1/yaNguEMWQ6MYrAGRDWcd0DuodKb3Q6TOdyhi5y50+DOWN610tW hsVzOIYLjPnZkkAOhVPb 1exB6810WHKtuT5kh2nHm5J6eg8ZnmUYqE5EPEMmXxWglfAjokElkCwhnDuLLrir/88/dPr6+WZ88bGK GD5493phzqHgKtrU85+x v4QfrIErnLkwhv1tvcxSs7HX9J3IteRRGJI8hb5JbwLFNfH+g9GnxnkuSofJY3909MDk5oBUC0cSpy8B Oalmnc7EzOYo68RNrsMI kmA02wWw13eDl9ipBPIoYD3FZVWEedxlHlKwj/tvvsRSPIf5U5R+Nn/S17FHktqvvvVAgzPFOc3Hf9Gl kvhaEURReJY46/ZJD9SC N2sKVIqODa1qGCNL03Bnr2R758ZEhi4b8jM9ofXJqFuPkMVt3av+lOyGzWlgYaroko9TnSlaltRhqO8a 4px55Rdi2qrmvK0w7oCG ginKFZ1AMlcB51KeiSjmXOsHZmI2ez6dJyKu5QGNfzzC7nJFTpYEJtKPkUmVI6Rjv5O56f9uxazfXvig jyVpu2Tguh3Ji3vaNEFk NNkvGVq0oZxUYDVIq7r5had1KXAy+OEjqtlxuQ6NdSHWyD1KhHWL7zbQN52sB+a3qsgVHwhti6+YCwLP xOlNonqoxN97lL6i/kPv navm3XGvJ9yPp6JD1e1Q20ffmtNXqG08IX5/CWsCUBrDCwkBiQgJBkpxYqtFpxBWr+9SPaSq1JKab4xs mzOqBtwOHmxL5PvPKEgI bE0vSt8gYA65uH2B72/sxjr//UPOOjxRbkovYXogku3mSDRMwT7KouxFOilCj+M5Ik0zuOBV2hKk+0/T 1resnRL9oOmCczZsbhNA +AH2ASVMLcfSzTtoPsxonJPIGg4SQdU0iQmTBKQBs6Xa3kC1dYvJtDPTBGXrxXRSNmjBCJdRdh6R0TTG AOLjYd+gc23jtZnuBCor rOyxl9kKWLnA8/BfTaWwj2kWJuqY5xeYNr0U9Sy9SwXT89r8UWGDXeJWJQAKh3vtc3KRChfsQrHQzRJE +1yqNtyHNBEsh9Kh1sTg a17aBcWZJEdUASWABA3Knmh6kHYxl2HD4IfWtwjJcJpVGpR0aNZKPBQiYZc9BavUPpdtXXYqK0piBVuJ TF6SC13xo4ifcSHZKaHp r0Tu8Med+apxYfa8R5RC/HgRgdjjm8Z6zCFSDIbN8AbQc2s45/eSrhSsLT9SNdRuQKyKMPjEwQOQeYYr cAirLzjmbXmPKwDg5CoB zpWPB6Euht5mzLWi4v7FNs5MK+XaMLKqfLzCJRPq3Z+4tscITTiomeqBauWNrWg2OLFYEPEMLDToivZl rplA3yflwSMHQ5VSVLhX PzxYTnPetpil1HvwQgpLfmlytFApTgfXiDR3x2439n9adqVafLiesZuNlifTRQNXEWelylESZDZhsnRC nWPToYnr0C+wcKEcXwt6 PryWnWY81X/cgnYaoXkfFckijfpc1/DYFbXqkDqgRA55jXptyaU04+VPlyI3GMeWwPa4eUZ82V3fxceo AhcQwSuZeus84Y/dNLOn vMpR8tTLPz8lKAgOtFMC/Ts9zfig3gx9cwMIxj5aFHskdOJFHxMCHYrlSiDFn5BAh9ISurt7WGlvTM0F yRLYoN0r6BNn7YHk3chy 2SjT9IPphRKCmBkM7mSTusj3peuwd4Uiv0haNBRxzX+hWCQWBgxFqIBRNgfGbARABWRPYNNbtG6fphaN fQIvOoFUjeLtCMRAkBPc bfOf9R1lQsbWKpgO7bwujxrOObmpq31sGw5mJuHTZZYAudLG1U7gDRcsafJCKNmoj5NhQYAhMDluOctv r7v1JWVD1PGj3j6oSv0F mTfG78ckG/HgOHmyHNLH4bABD1hzv1RlEgj7ZEsDBvSuPITJYMMQnjuPDptbcotecQQxrsaYoIP7GtAw ZH7jVG3sWsDRaaV0jbu3 q69fF9+/SosAq+iLbr4iNO71G/lLwUWoHatOq5T9MdkDx7YFuxnC2/SijJzSVwQYlLR6lyTCAUNU4ThJ /S31g/t4iiXMVyQtZyq9 w7Glb2Wo7guUGcGeVNRqRbeBo5qTMM5qtiJBTSQ41VYQVVyeAK3BIgLXmsxh2/Zu2Q6s0d0+zGlhU2cs mDp67vtL8cHoUi6S6i1p IBUBrvkr1hGRcc31+FaPXAfu++ZvZGXFyYBdQt5U28NiM+bSUgg14JUY+1jZ1tWaQi+U9e/VEAqEg+bV 236n2a6aVFiObtp6aBlN iODX/U8koFm1zmABd10HEfTBqn0YDweMkAbmFgWNlATZu0OioesTqPS5gwvID3zyWTyke3ku2bTTbQv4 9VWJW2blGnLN+YxB16ae gd9Se5XL2Vbo/2xUb5ncPzYiPQXvc1rhHXABwHA/Np2TuCGuWnQPfdr3kWoNbecds5hIwUXNFQO1FCbv 6GvINnBk01tj1p3x35MJ AZtjcFtmBFFrJhBpN1sp41+ieo89CquK7pXIAPugybuwGQfEcE/9pe/wdgg3ieD34f28hPYhkJLLZTYn ENoHm4onJEVBmSmkNYUr c+0FlbspNzRvnDku72eJSG4R0CWcXVORqt3Un/uon3qUDDIORVAQjTgWPG26rDG67+IE22nsZrbrm4J8 aMLftkaCykT8yNyagp7j Mmi4dBpjOvD2+43Rsu+bT30VOoucafmy7Dxq8/t9mHwnANbpFVgEFr14WGzGrx+Z+vW00XSbZIELQJt3 QNI5YNpXa+00AQcxXhw5 ErJTMYSVKLLx6MAIRQdxrAgVO7hEOXGNLDiG//xBbz18mNSxRmvq7SO/BrLGEjri1OK1uRR8tL+p1rFS ddo7RTwahvdqORkABsVK fa2DulgybyTMK5KA1xE/sZyKzwKOnePjbyUWgzlsTjKpWdbQU3PSNQWOMZFhtIzs4/Yp4QOpls0L1ulN RLnHQgwFev0N/f9el0ix 2lb1UNiHaTOojMVZ7uu0RhlAUBbWFixb9dNhPi/FSyBgArLAwFkQ/frz0l1+fz36OxjVRGvHHRLponkS FldsBQZAaNaXKoXMySb2 PEGj8DvedgsHEBWZBau6RKoZZjIWQLBAMOqWQyQR4CasrpbzygxKtLPTfXytGV2xA1w3B3APAhAg5iHX JKzJIrQYJBIgW+Pr5Tvj gt81zU1/6amV6M2FUE0VWvGoXGoh/TvDvEUJezqCmWY0dUOGKaGH5s8csqFhFum47ntokRtzQ7xpdmJW pZQJRsaeZfYJQ0CVDkYq M5GUt7kg5kyVxykfOnJqq0LErxfuWSJCQgmcpBVkVu2ltaey55csD3My0+aNMwWggnlCQkQUfMX4Nr4o K0Xq1LQgi8Bq3XPv6UXg YukPll63R9xIoHZeIIC0w6xNH7JadoVnHLSEaA+fJI26M/nNrhLxQKWZSGRiQAcZVIu9NRLOxpXRppII 1xXoKYxWssDAfyYpfl/+ +/FeDt3/y9/MYF0/QaYqIQAsAIdfdq+nDWdQy1UU27i4QbjVvaJOk1xInFFhAmoEqI0TMIS80Ns/hmz5 gca3aXCe3gZEUSYkWVVE mG2Jpl7uzp4vsqQx9Mpsz3gDw8GgNTuFiwIL9qEZN7pZBWzYp8+IE1vsECYPcnaYuOZEQvGeiLxcQHNI BqkJcXXJ7zQ3iLnd8afm 6b9m+Wut87KNsO8PQhcHX9o+RojfqZ5hokzGgwLRnuZTSE6+ziHRorWMuPDKONSVVNnKuA9Is23W9VVK Qrt4+f6ilysJGhDFfAkx 2twFG4w+i1+t/GzI7qy0/MTQHFZfUUMrVNItNLTsOjg8KCJwmyUPKuGOgkYkI+smuO0XuRo6fwER/DHf v3Nn4+6nurKQMPp07oyA ABAkAVapWHThoUM/mqBiPq99S/F3qlgZ2z8b3/nVv8Sgepg2Q2pkSSEUkB827nv1zVETJXyCO/CNghYX BYEoNuImOwWBKDVhhYTC YDiQFGGbGzcVHPIASffe8VNNKdRSEYYgvHXYLTnBLMAeYvjOWZUMGbch6UPEPaLPPQEmdZCFBTbKKJVm EhyZJDLUIoaj26E5/Y/7 tMAyj0+cXWqDRiNjmHxiMQ3Mx99AmD0oqhhWbh4SgIQtGz3Qf1zn35yn9+/oYK1OLrIumJADlzO3RJCE T2SA3aKiDOxgwpOAFXBL xt8uP+c/v3N04kyem9ci0B4xIqehcWL0JVGPCho3GvGc5rk7tWFp7RhGwn322phIPynk6mJktZe2vgkw 5jufyiZpj6uWuf9pI6+v AXt71iCKo1fElbCctcWq8kMuAYDX3z4h3pWh73JHXIp+fhy907b3Zs1nNOHHfXhEB9ahkAh6t0qs1x3Y u9NqLE476hbt7X89OXLt 2HJJdv2xpRDSUsa7LDeDaVd09tecIXMHxQdIYu1JokFjdUYqM7DdftIjh+vgvaztPNAlSrQe30zWKwmN h6uNot3vXJLdBEbOgiYv fcsTjRf9VlKvXG71ap7DttP/oLazeRRhR2D8hvJFTi9b1QVbCwWGIrqMe6QCpZw6CJE7vroRdNuQQ4+7 e69ur9+DMoscIPIni1Ef zjmuoSqIHBI7oQz883IyGBtQ0+PV+ocbad3tkbtgFKuOSd0YF9rYRgm1c3rRT2r204SXSZ8VSM/V6/ZG Dh/zK+xws0y2lva2yAYs /t6aJkXQFq2yemVCM0Y++6dS5c+Hyo7/6jeJACtRQye2+gfGH9RzFR8xuRAWOvUAN0FplI00/Q6eO/G5 aDpEOzhgRg4SrxpSrIzo uXcqTk4WE2LCxyVHstqQrhZwfCTqEkThXCd+PHVOcWFOmTeO/aJ+bm/vj+GqlkAdDk6EE2WDaJk9ok/6 psrwi1c54tNbw44A79WG U16GV1TktYp9gtVY/Ln/z+g2/3X/xSIwEAnyQ8u9htF8w49dacCY/r/faV1HC16/nL2d5Zd12RiLN9bk Rb7M7BhRci7kn7YVMlVS CrAo/e/GmLrAi5nb5Uq9nCd5uWeQadTuFGlA5zFEVeGZRDMEVvYllq2zoPm73pZ7jYgp1qLnPHVy2nsY S5wVXuMDVt3s1/ElFRUZ LY08e1cEnxTawUgZFu6h8Q+DrDneNwSk7nuCAt5AZJz8gaUBl+pYQdATHcWtFJT6x5svpplPzt3VzO4N f8bYxnNecr6buIxLQLfX ABC2LUxSEs8cc4vUZSBAPsWNs91ULVdKFTI2+oSf63Wa3TLFlGTp4hqn5cCudTkrrUs2+NZguG4MATI7 11cKFA0TwVbxxPuE7xUu Pjk911+9d0hVVkvrZgb3x/vjC292QYjvDNheD1Sl9BTtuB7NZLT2cr0VtPXgkpoz9iO0Bjngx7EZD94M Fm275rVSSji3IfymYydh +0K8vIs6Lf5/f/qE62aWXYey5aPhUFTbMalj54QFRbuQzsKkHoQrouefTIIScm/6edHztlao1DBWmcic +av9911HqLY+NWhMeHvb g/u9yQoeSyEABx2i1nf8h+Qhtc5UlGKM5hegDWDlhYdFcuZmjOGsHbOOC7liMNbVrbfkIaaHXNl7f2lf FyzWSodl1xvWVrbq2mkz SMQ9lLQhH9Fo1Fl7xQyy7t/vcOlsbNP6NdLNd6+ybxUbx0oZroCN1XUSWSNdlOWAiPM9WmmJDfNYrZWY k90GMdLIyP3fvpSGCe/r 1jeUMKm8NGfq0wpQIy4wlbSHZvQuzoXDXYsPe1ar9q0rlePq4VxBr3jMa3mdh0hdoOU+nl8AJOEQmLTK PHZjq9pv4EkIzze1SJq3 GjTJlypg/oPLx4BwY7eQb8fa+pe9VZk45C9DdPQTcfXZ744nhinYI3y3l+y5a8CQmznoJP7mwDbInDSl yc3O/zjiRx183/0oBCI7 cyn2uU8afMVUUDX5h+0sOWInYwBJKRZaMe8lfJgls6+MlL8AuNYSUu1T/9rXOvSa9uvAsGItab75fvd5 4oNycnMiIyGtXrwqFwqv Ah51vASMl95fKF/7Ytr1v/359+h7SMMpalQMFH0tOuYZEBfBjR7Exr3mYpto9+2wORd9Db7JjA4sHJRc S5ZONHaZm8zYTwDbEplb qwmb8yCIPaDwUbZK+/K6glhfc9tXO5SPjTGsPsk61CrmRFkWQoy39b2mxOFLbNp/euZOcnDxpyuRvvvv CwhrwitP0l7os4IGsy04 /sVhcUFE/xBGVGbiPUd10MwVM8h5+pV0ddAK8V7eIpHIYYAq3cOUjJfamQhWOOKWHkcYi3yoIyACQ6OI x4+p1a/WDAHkc0Em3iz4 +NgYQAv5avJt/3fa9Yl2wYsyiyTVQcdqBZnkMimgL2Ot6xc3EV0orCfxgPi02YYuzZNKsWFLm9wrPV0W IhlTa9hvAlq2mW01GRbi BqLSW4mXe5v7bLMt6gJOLydHhHM5wGpg/f/ogAD07OwBRju53XIgz9oFG4oc04+aNm+pj4Bf77zIvQYo xWBz/Qh5odHbsP49d4IL u5WRtsjrtQyM4dg8+DXJbhNdISP5oRIv34xio7IWodGxc3C73l22lffw5e50BSCyNBawn3GPo88fqHx0 ftre3H/XNN/C+V8wPa84 3c7etfOuaF2iXg9LOyJ4JCkOKOa07o4QL8lJ5ys5u+/v6+bp2Gn9IOFQoFa0hAf3NfeySlz24zuXwveg TL+pv94el5DSkLtk1KEH ajRfXpTIzCufpn0r98MdXc2Qjsco4S7/Ete3NYMmXZ74mkvlQ+8ODF9Vkhtj3Ko9i2YqZhBKY03YLz0p BJcN8pMciH38Qwe4iV2p eP/f4+/pt37rN/OCjhw/6nf289f5lCRSX1DWd9Vdw4/j7+u3Y/kf+0N07d/r7+pIe9JrByYq2O7SaQje Wq//y5Uvzg+TVfHL47Rt KCOSbAzxqlbpnt+0y695qmZs2wfmd7pV2ZCgTuL/r8iKMBJ160EVU4Mjrmgh5pWNPWgURQxzu7yQzQ6Q 00ahBxXa15aKr75aEgUR ff/utv6/f/7o8Lf72isURVT7kdH08XtS0dvOgo6iDCWWmU/YwGCxuh9A9o/Zsf1+/7p24uLu1juRCkNU f1Qry9/ULqFotMzOzIDG aJDJlPrs1lX/Qv7d9FVaJsID69HsQnHsMo2xufh/yjgTH5nbbisnCJbIOvUs13lN1nJR++snf12/GTz9 ZHN+2dStf+Z542aTn6KP jxyqW84+AfNb00d+nZroDCqc16mObptFlnheR3Dw5zsVXDBgy4zf6rbOJGZ6hf90gDrC4gNk2vwOM0Gb 05SOycSAynyTtFkIG78A B2qmrnRpWuGyNOEWY4snsY/i2kgU+Ie6g7o5XhYnAqhN8WjsISdTSHo8w1++q69uzesPIq9WwBaNe46g 893GEKGWp00RA2TNI2kv hax6DZcoHjMqL758IV7eP5WsU/QcO/Cl676TCdwGQB/IsdSQFWGYq3iFZo3Bvm9xw7JzfFCpsyrZCFLG IZyhkdBeNAF7Bv3RPL9h gX/4H9x+wKvMRpKamxr+JN+36+VNqWJhy6d7zb0Ua+M8Eb7rhT81iMY7Ha5xTseJsRktQc46mQxqa3sl akJr1wkUDy0xYwzc3/rb rk14fj97ot/fqWPmoHdlQ6xL6mYfLjf75zLTdLSM0AcWum4DDiSd76npuef9TQiNpYcjurblddBrGMCD U2xedKGKBoQa/AQpBqVS BRYyk6jNuRKp6y7mrGB3/lmGYCc9ik5rj2N9iNf5FZ6/JlRBgU51bvyAEVr2DOyal0koVk+fN9/L2zm8 PXAlpNR3ha/Ks3q31Vsy WHu40CNlW5Ks0qrU+Ih8z+blbj+2odsn67VMG/n0p0Ppen86ad/sdANuMxXIM0t9VlEu1w+Z5SmXf/v2 +fyqPYC3fXhke/fr8MmK c3AsVzqeW3Fe9Y7wJ4ly4+oZVnMvQ3Q9NqXclieBuT2eCqvvIXqPJMoUxyTFf2hoJXzlh6ew3bqqAHzb LCWmpbjCfE93bnk5jHCr ANWqlvJRsXYmSuXJu0End279TesTu4863m3aFv0IPNs8tRYtmhAWt06lhvRq7E9nG9z+DBNQMrFe/vtU sbt+65eFZhteYYdeuJSY kFNLOTrWkYK8dpbbdQW8+CMRoYvLXf10suzaeGUFFPUxOnvY3CvkYkxGoRrpsepZ07oapK3z5/9yZswA waOgQk3+PBd4+Es3dd48 GV5a4adxDDKNIPDZY5VTHY8ATQJ9+oWEMdvp5u1/1NJELQVIGRHRqTIVHnKEgFNsCGlpVVR0+ZEQkTdO Jc00lSUYP27bUOnjFuKa /z37x/EV+zKmPdR2pmdOJ+l2bKYcd3MviEN869djOkg9eHeNxD2+abur92rlfFAB9896kpANBopPST3i yF9DoGB5fHVRhhVK42yQ 727X4r7+/evWqX//+E7OxQMuu1w0tvZrzBlkOo2eZparG0/fN8mW/ey2MeVCxEHVM4AWx/NDP9vgTljj /ThVdJPJrYA4oodWJpOO BxK5koPeJkUEH/fjjDa7ruBi9ZSA1hKbV/55vCBquPWJV0eZFQQW7z0/HqvUR0zh7QB9+flJUcIcO+U3 XIwVuZKc0rRUj0gpXA/b hEi6qP97r2gUzAxsjArruRkw8/Z/DdBVoD7Oc15TZ3a1yJFq83dKAsqrojuJvKIH+9CSKJ3VGZUfqa3Y 8St+ENfjw6Brv6OwnQJN tVo/9/emRiHjWESbdT2V0Q3PVh2n1mBFwwbWcwwwnC6pBtTgoJDb0k4baib5UXDKlmDykb/MVHnQb9yk VEwAuXrhw6+CT08NjJvO +6Q54g1kYEJXfdBWyDfpPYfc0J73B4Zf185hpmm+6Z/oy1wnQ3Q3mVrjKq20Hmtbn12Uj6WnNaeHUDT+ /hrY27Vnj2FnU572WQKn uqvKis5q032/hT/BG8qOy8+rVr//YwvWXFv7zDTFmAjb6vM1EyTimYWVLaJkUgz11pg5riSaNMs5u7ED 6oVC4+rd1/WgXngWxD19 8fLZeJgpro72MHYWsmpLAWwnvIOqxDcjWYVdVC/r28ZrouQjq73jRNecTcsLj4DJPM/lt/tVXCPUbNOA 3Th4/zr4b+PunyMzMTEx IrN+ekB5CC38hd/jv4CA8Hm+KvxUjXZZQG0Gs/pgPCaJMflO4Y9+U12w9r51b+Ob1m0k//SNOZ7yEHjz n1rlI0d57F//mDQD4+vn 6+AO9QLVdroy70d/PGRkZ/PxUVFUM1s3e+RtYWqj4tRU/wsEDb++oajXYIGVVfXj7Xc+EhmZkZJgHGY3 OE4uS7Ns6ApCGUgTSs3Z 7dwq6YfTo9Vzuy3dctSZj5y0lYy3eecjlGZz5JqeLWvua5LhtsjvXFZJX/zaMDg9hg8ZIYk5odLB5cCu PSxaK/f7gH+3GTZrMmDk OEOEE8msaM8QC7nALtPyBZc9nr8oi3l/aG8b3MQNX8U2awUwAuM26vbeH4Vi/drrCkeXXFDKsYAdEu3F 2iva0g3HzD0riaA0eyrw uwS8F8AP41DqNWUrSMoxe/Pj4+rJ74DgI9Vw8i6U/e1nnAgOARaxYEPmpJXDb2ekAWBTPIbFjYfqaTzB yV/yaQlBiizdzGn2PWu4 SALEXLRiXFknjRu4KyuD+/NUlmrlfPpJYo8md2NuiproUdQc6VJFg38C8BaOqzjf7+ewn6i463GEZC9V qwq6cnZ4CIYt0L85hh8R pnpmtdwAAiYmJr1+/BhPoSBinzzz8QtQMR1SmUn/jgLx1XXmGfQIrO0e0ech9iW2eyNSgxI0lsQ/AwIH 9RuGsw3yKuYp53Gfm6hY sefOPTvZDGTRkcP+MBjOoWsJ55nPOU0VQ15mxS7yrQRGTp3Kvv09oGJ2NgSZE2XwYJubg5+GHceMNRoP VDoWJ+l8wyQp3aBFKb/X w5Bhmi0os9UM7vv17txWO8cv0abvTvx1kBnDloE4pLzWfOn0l/2tVDT73bf0wa0vwZzs8gzp75DEksi9 +roN5KPm8UPcNoM9gExe ZBFNnE6xFqXkhY65NQRDqYr9vS76cMNrjwlDDBhvYuCSGgJhtBQiOs08NslfGnygjB6Bx65ZADZdZRp7 8E9jvE95nWbjX9CJNGLT Y99taHZxVkUiBxYrSnkNMVOoohAFj/Ngnpy36LUhqd4Ds2PEnPfVl6kDpuPvJkV5zOzmnym78/d56GJ4 PCUlPS+M4bv/efYOHDvn QClQVte5tx8vOORYGsAcZG4H6THw5/9dn+MiRABD/5z2HDMN+qGNSoWLFPn3/9/5UTq0oM7bZdaBuEo+ Fpq4OoFlcLit4a3dknxf jiR4fh3a+p4SLywLim6cJBKbycjSdI3QjFiVY0j6fPOMg0VzAaXgPJRs55LlqvaRqRKmmFOft+S369UW eApapu2pq3t3/+lYQjo6 Xu29te15bEBh7x4jjTQYM/1cg+GArG9+mJ7InLVR/ruM/lKSSNjFkpMoiHwevFAGpCOVzl81kbwH3h+m Li31IidJn0LYq3dJtyLE rLx5oGVzYzwIX/hSSRmJZ5Qogq1lYw95sXwF7ZAzc3DvFqq737OJ5DyVfXpti4nx71NlI90KlSdyBOj0 qIES52QhU5m5KTMzdSuV MisTjcn45qcIpihgeMMpaKV5CI+jo1MJ3A/bvchOuH53xZiclh/1wYXuXOH5xOXc0tuh+09FPqOH2KzW j4qnmfJ6MdBqtBBJeq4d x/XwY7LxVQMjCC5wusWDMaj3tUxXcDG6mi/L4ib+gsx9tw49jD9/mZH9Av/1G69paBhBHx9unNyVQJLK UtDmBLd4kT0eYhPUAuTA ISzz4YJx3mWYsmclPzPye/Pw5VL2wRkWwpN1FgPundnDXwWrqqyTiPeefLfqS7LyaYrKzANMRmf2dlaw yvh+yyTHAaDQaGaNlTID nz57/dzxCehXQE30sgIyveeKZn/+yaNGzZ8/vGm9bRmszWk32aoxvwVLKuqAp+Plkucks3c4Ab/v27F2 6+JfuPXuYDzN/BB/3XnF 5vs519783qf49ajvsvs/rVjVT9UlIl7Tpodpp0ZWwQbVJ6Tx9/obzD7HDJXZCVjHZyzrJMReKUInzhmM AaW6vnr9jf7+SJUF3E7o /5GEe7wSh6N5QevjViIbdUouj7dqyzEMoyt3T+bpaorTZQGCYlAnWDUn96rYc4+9d3p0mXkuUR0aRrsc fG37uItHDNnSPjcZOxPh dit/Oyc6+zcTe3zEkmj167zUkPctxIMByCh4dLlh5GTIsTtJGjr6EHWyRTyHX18beIQmpyH7PoTztdxm 9czezWb22pJsaMt77BbQ fzWlrhddlukdklowtXMNBoSGuKMmsTaWNJJixekTmOA5ao28rtoUa69WCxnLY6fDqrYhf86KAgv8bwyC a39au8/Soq5cmm6zexSm 3AQChUFjx/OaS2PFtGR2W7y7u6i424TQNWTev0+fPBw8Z+zUV38j4jhExQU4LkpHGRLSG1DL0BVONsfm INIQ7XDH78zidw0ny+9s 3ddQ4ZW91x2axLjJCd2qJZmE5k9QdKxlZxd52r7/hDanpnk0gbi9nVHzslRpgIJIB35IzAqsso3Ky5FX +vX6wF9cC/8iNznPowMH BwvP8KoxJWSnQ1t+3Xz/e+eO4IrjCaDr/Z2donj7i7Bbss6cQ084loKhzdPDFpsZl4YgDOFV65Hth/1U b/n195Ub3C3ABnUw7g+Y DLTycwqE45orpFKNwHGNFnzyy20799ZbM8dC+jv642xATxXbp0DyMcaB9vDky/+0Y6jNtB+GSBWEwGCx 97Vcl5en4w1fthR+io3l TdrwPzazaUh3SxjaEdhVF4Jx55uA3yHQx7z995ep9/J3eqMp2+/HlqzR20G5uyiT+2PgktLf3DSKG8Lf /yMQBh4ysmv5kfxCVDMY lUjI1BoBoHUGk2rbs8z40j7j/AkBiYuLkH3/N8FVF0boDpGp7O2WpSALy3vZKXRcRwcs//Srt4Biru1v QkK9s75/j9hhWORSn0l1 48IGxjOyhBF7+tCQ5rVMAR4o8CUESSYOsYTk1OG3ZJ3883cbQw0Wc+OThZHIg6Iz+d/JvwjBMyNmzVme yau9Y0w9C8+/b+/cz8iv k54lhsvlKEUjN+oqzHoAQ8Fh5ggBeJ4Cnaso+skCY4fwRhQytdxqc/IUL+Tnwf+7evXXzZonESg/F18+ LitYem6yKK0FbnUAyChz oXIIgTAvmFO6/cuuYdnsBHRNj9CCet6DWbYpL4DAqWZMABsiL87Cq+ZnIA8Ck52reXpybQZTM6Qpao52 RRFFU/7Ovc4aOlw5mXLE g3N13fyXKsdod+KxDlhmc6vTGh6TNdlw7AgLnlPhG05/gfFiAUCRgAyr2poAA5BjG7iJITKa+GzTxG6t hNAMFcKiduIGH0hjMbdq Sa0VlapRzvlFSZaDIILmvuR/LsJz9ZxS9Pu+hUnXGWhpsdZ26c44h6rnLv9mH4rng2Vyh2aOjy+FCkiQ qDn4sCvlvubVPisA3fET S2JNcQ0dJVCv7hcTe1AgPhtSYXYjpv2SRiZuZhWPeHCmjAvGw9Gdr2niM0cKeyWL3v8TW351K8QM2bgE Yju1/AICnp+ejxmmY10Z UvDxV/wrLLMPk7rd1y/s5C116wbQG+0GmrBo7X/2QrRaO9gvxXRPhUWRrkdQqtqo5i41yMfJJwv139qK Ud4VJ0ntGpnKAsl7ZOZP vDcdx/S4zDpqW5qbSxcEVwy/tPnK33fRO2C8ejqJuYowpEDnBh9Vl1KWnVwYM8TfHhF21Jf809n4r448 p5F8s2nBmY2DcA6R8yks eUpekhTJtnMPXrCP58HeyPoof8v36S1q0TAKmMj3SCNvO6quok2E8lut7PYLP828xh2LuWhVtYOzGuGL tAOVqGbGj1o2qoiORSgS MMo4UYDPfbv6Zpb/ziXs1XOCkSua+fetW/yx9Ltvr6ABB3m0u2qbWMhXORn6MFtahQzjVknFWSexwybm AXrHj4m7boctdjEznAAm 8LDy/gP8aA5x+KZ1IxkyVziFZzsZ2CvvM0uHkWGZmVm33JwkLhP0kqw5odvuHDs1VGEpKhg08tKjQXcr wrn887/txKJVSs3uSEye h01KzXpFfMeyn5nIokqFODb4u8j94ROZccVlPXNzVs57U8VTq4kXwkg7koh0XyW02Nr2m3+ashli+PTp09m cgUwl9sf6C1nMVfySsFG lbKfZM1t/mhgWIBk53IoXn23bG5o7Z9+cVVk4dtrz8tubfZO+MU7nz2ps6PsStF0Fkh3xOk788Hlx6zd hdWdakf515yflwl9sp+g tSExM/V6a02cF20YUr/gR8/mMGHUopjFFcSth6HifA7pzo/XwRDdFyqzwIpkCKiVQpieU1N4mHHJfSqH QnNqbK88riTJxgo0wpIJ m2Uy4Ec31wa/76zURE05UeMTTXOeY56xb/052w1ECRz6wd2aso2novSQa/uVLl5k+DPSVmOMn84+FREV Eyx82H2DVRbZ7ZZnv4+7 jJAeecTz0LRLzqjrDAgEF8Yb9Ph5ac7b83YYc5/1OFFhECaLDs9poKuVSiUNVJL6aXcaq3GKGFOt1xGN R9/Oej6EoLq8GaCt3B/v 5s+o5SIc3T+t5H1iLxSj1y8kJBtXGfBpbcP0/f/e70pKZc6go1rhJ0kYXwcgQJSSvSjPeEvTOpxlA624 5a+6cOVqNtk/tvuNt0Q5 e4DgotKasYNG+ZOCynkuEwupOqspef8RwWUXP9ywStBtVLI03UM6T+roQZhkiOo0Upt3+TbxAKKBIUqV SRT9+mKJkyyYCsb0UzEX dWVdt7v3l/ZnenKKYz0ledg+7ju/YLNXtO13TkQXXVTeU8o32Am3ynugufeVnXAY6BMa5HaGbwlQooPp wHDXku5K/9i6r01FMMiS cIoQI3wkI87+us2zk6zj25Wgg2NXWuTozbUYCih2zCtmbOimuqIf9fIQEOFWPDvvNGR3KlqAnz6ctD3N cnK0cFxpcmIhh46zwssn 85MvIaTrE7l+DVAAKxNqsfF2aS+VuDzrOzIQOyguWlU19YeWsqYVhgeP9sMoWf6ro7alwQlu2YvYPZGv JaOhjmb9UunJji+blKU0 FI0xg5HBsDJ8iWXBQat6GjaLrFHUHLQT28xf1527ukyiOFph/0N8iv81eI/j5+tTIf0hwq/DMnZ9uB/F 9RsSh8+qLg3LrkCO714+ fP3/07W6s98p0fWp7KdLKbW212/OQv7r5s9c4Xj9IygF9xrmx4DbEQ1nWhpNx8nz1dESJRs8c/bOLi8u SZUsL+WXSqUdOnZkWCb s2rUD+/hmPkUWTRXXAs316xiCK1aSQoRs6J9+oqM7W6S4kSUacnLjon915tmmc3n+0I7hW21n5hLHDQJ UszBGFoDjQf4ii/zosZi FNCwXMfcTS0dTX5VQNZ5gDj8egPHGhZhFQu+/Bd3lTeDgmJnw0xLrr4AfbKNcj4vukop1QHacBZnRAuR zlO9fdfsa/+d732duxr6 ev2/SUp5UAKKP5x9phNUZZt5zvboaOWOSV/yEhl7tLUc7XDgYLC4OyKRBjI/+/bqNT4671RHr1vmYVt+ 6BS5i6s28h+/P57su7Hv rm1trMOMmgqusB6TGP9+u+PJOlVcPD2Dejsmwm2c4HRjGkCvKhRdckrJoGwDSjUVFz6G2OGfQ4D49Jup 42ZI6d7nmAiB27AH5t+4 pqThAEBHgFODPHbm8Sz5CTmZXakCrqG//4lXto5LHuITQKKMu8f5phbUyZ4FP5Lf686t291AbFW2Q50d BuuZcML6JOAK4RLa6m35 fkxjDMHt2/5tDk8lj5BV0nir4eDXipfvOKqOhN4+oCZvYwyG8gfeMccmuy0isHSLG/4ED/6mPjLAs++D +f3tEb3X2rcVStLdGPCS UQCO3FHkwQUH39fWa20AXHgGUIlqe1x4C1voqbdhzh9Gwy1Gq18KvU4hUnuYseCcsUk2NJIQmG89lMyy 55oMTPDBhlJwetUn8CmO p2ox/8vEk9UBCq5U8osWy5DuW95ADYXotxXkiWOjnSBlF15cUNRFZEB1/3UCRz6Pj1+Jgb3kFCeynJk/ Qys5jvZMXSy4hiobRsSq x1jqxsb0UqEdE1+epG1adlVlDaOavzqL7+lmEn3ThqReqREp44fYCx+3aTcqEXxNC0baWw6NfMjXrsuq 209PSDuw/QNOUWCxxcHD W9RP2XIuHb6RkpPsXrfe3bLoc+cJgMJh/A//Y+MxBf9M4hiLHiaCsyVudtRCAMRtCKtuUDaWqoQtMd4G UGrDCwmAwpQassDAYTKk SWufTIhWalUkMr3JCWrNEumIhjWwzkOQTGJwIDklXYfEbiUaLm0ZVSiTPqvHcxLhqpYQXIVnCIrcDSlV xfEsAh3RJYcROowTfgOa cbMMTBVyXYxcFZyImzSxLt5STLzWB+rf5lCpFpFGcUv/++UTnbmuy8g1dIxu3z63v9+joKBKJ+vfvbyH Oia8hJd/j8f52xZLN8or 6A4nRogFwOqN8Ddk68ko1apy108rq7o2uVa9DMFKn349OxqTJAvHkQuJe2BHJ0849hglit5TBRI8nl2/ D7YYz2mioDxpKc40VK2+ 7akNgHVgZJQsWaljf0b6hUsUmzme/QRtq78Wqdbm+qR4+fPj/zOjSpcuuXbs+qj1Hpo3rVZOXnLe/7j1 79vzf//4xvZ2BLYLRVBN CWLkuG8unhgNnIX6IsMfCZY1nSdZAM2BP8pDjF3QBy0617r/+lO7qovHIf503Zuxb5oNRSE+ePCkk/fL bawIOfl9nCYmRjMVGnIp 5oEkGNrJbAO7oTk2HRWZQ8uXKo3aVok3CI3cGeZdJrcUGa0iALMd675Ptp1Y9/UopGHxH0d7Uw2IBCPI gxx9/9EoKv20j+NM4Y8Y M/xkNMKm9VBWQ4LPbQbsk+jSlbZHX2bpzLWPDgDGfcwZ87hNmSJJ+AsTLSSn51qJ8nhp8680cV4GeRZ8 cRl8praoYVcEneIEYH63 fLqkHvbqs83yUb0j+7hXTbyxfBccUcd65+nff36UWbrdfHxxZBm5uXKQP5Cha6Bx9RBuhOu/25377V4Z //v179+5vWWZxLmo729n MrCfU86qlQct3bxGlkHu6+R5h8qh2ythXyGQ/fChWgSPm7tH05aJFEtcA61XEPi+2ay53BsUclNYmO44 PGIsFZSyZmne0vY/x4MG STOWo7wXSFyofI7hKlJrqyzYYrFvOi0g5hWepIq8Fvr4Mvk3w3gfYHSEBi9enOdJ446/z2/kPoEeb40a 33ws/CijmK9w609HOSir /CJwh6bu3H/Pbz58/SyM3stgpEU3xzWfNhAZesSsjiQFUzrA88FouLhimuAv9gyBDUndb3GJoLFboWFe YWKtWrQYOHBgZGWkeumj XSe3eKAQwe5QOmZdc/HxfrJLbSHLLwIxQidBc9qk5mzMQPGDALSqCWBMqa+kCoZJphwJXSPcuVxKM3NE E16TyW2uqT4Wu5XzkWL9 4DKU6Qn20eBz20tERcfTbl9wu7wdQWLqGHNLRyay+94Z6zsp6x8jqNHXn1CygHyUjOrCqaXmlkmFQi/P lLXaISOLr5taN4TeSxfA Qr7aFzAYEFQb4obPmUOKTGV9txuMeTSwNcS26Um2i/Jlv2jKlW8nCAfKEU305eiLyihvfnKYV3/qVVsW eZfdF7Ef4BkrasZs6wXf j6hOwbGvXby4bBGm2+/zpQ7LsNdTk0SajlJJjQHFUPIhbOp8Gdu2Ep8PT98TBeyBahMBa978xyfDvJQC U0TW2UWTQz1XiaoIl0b+ cf8jj2o2fEvTMtDuPueNohh//kzlhSVjDKAHlHs7YlLh8sk5AxCv/++59QAbXGmvR2vVDV2PLGrYYFwd EJ079o53Lo5AcSUjiwCz pf8g3TdBpxJ7/v/cW2yH514pE7M+V5fTJj3Zova61208WOe5j9LaifY7DFVHFUr2AFMeNCLo+achkMoF YJEnXYzciNjVth6pWTI4 V1XZyg0FSzDyVqIGGX2kK1+CFe05q8k94qsTbshln70968pWGdXUFz+wKnDdBKUoTKlGDRFxyVf33+Yn zpqiCsjNvYfEKzrQbHx8 HCKi1oiombyAwTqGkUW5bvkrAV1slL6zluljNZO9edsW1VCvj1Gut+YtUoUKF/MR72MLdMSPB80DmKgB UR8eOoF7p6FNrI2Tgv8g 40DnAMxMf6ApiCmWIgYmGbU/n9S1LEioWwHlDQb0q7ly/+uqrnJycQhJ5+fJlMbNDCFnkCACxsbGPHz8 7Mu2sqrQr8F5EyJMz1xp PcNasWbwkj4+TWcHP6rv0+vqacjRhNYUaNWoAAG8+I3NjWcfHzTYQAcHvy4IzcaMStXlg5EPyLLWw3nz 169GjB+3snXQFw796MXv PH/9p9dLjB0938142g+/kBUc4LMEZwaEhcy2WPNTYGBTiysrRJCMPhm8kmIqfHa138jybeFe9BH2wBq2 hRsf7ClcgHvUOmO704Dh jqLskuElyD70pMK0CVwVkGCBor972l1AxlkBGMsUa982/++59kiRQKFiEPUHyYcokLO7d2isKBkmfO46 WP1OlVNRt4Cz9q+a1mp2 d8apVh7EzYe17AjDg+hIs3V3T1dtSJKw4QGX3mlGL7+Ir4RebBmIDpOg9XhVOVqBQTy05gkQvUnrz3IX qZbz3nvc5DjM77D/3ily eGXFtwXaq7tiiaVFR4xyxCQeLN01iEIdjPCK0G2U5HNPvGOPsojF0XIgxwQ/KjsrSBTurvb0F8sQJw4m EJQuu+s9H4W+ImTNnAgB JWv0oqkAZfyv8Hn3q4mXj6zm+lpHil3UXDWINre1t5k4v0Wqs2pj37zFxxxN/PTXFZDkyrAeAD3t0u2o +49atW/lOVFd9xElRo2G OcthxLpDCDpQSQfG1tXtU97/Yet5Waehz6S9VxnrhRzQ9l6rJ/Nxfhh0TxC75o+fIRJTOy7eexXvb8gg PxZVT0Vd6ulYl123PiHd ML1c3dQKoJg7NQfSw8rU40zlVShp7qd5fChE1knn2jwZJWSTPg/onx5n601+/FYlEPj4+pn8U1wtW36s tG2+syc/z58+vXLlichM HgJ9++mxa9tn8sue+/b4h769viVl0PvpSvrq7+/gtYiZgXH8yVAlSyYgeh9H6Ke6qvMq4xvubjgKgVy7 s7seCwPXZD3sb3Ki9oQR /kPVRbP340e4+/oKhotPeUmwwWg5oorPhehFABg7z7x39pzMERV7YNgJQuDgmUBfkabQfNrvuZCCZKcK JgIn8H58zekOKzmDqbWV u3bu//vrr/PSyeW7NblEq5kxE2MlmFpQTRaRunmgcmPSv0keiVvARXpiiQBCC9RxVFA3JmPVqU17dhv4 wKKRSqd91ITCKZr7hd65 dsLbCfGpwC+oSfQdZYt04sRGw0W/UztFpHgm7AqDReFeECekPfZJhnRfOv0HVIaUBkkFozWzlwVMQEAq ALixFFsGoeTwOr5ZIJlZ CwmAwpYb/A55RS/a9x1SSBWHXTQfKUjJbOeBG></span></span></span>
</div><span style=font-size:12px><span style=font-family:[place],Helvetica,sans- serif>
<strong>Patient Name: </strong><span class=& quot;clinicalNoteMacroWysiwyg id=[id number] macroname=PatientNam e spantype=macro title=#PatientName>SHANELL MENDEZ</span>& lt;br><strong>MRN: </strong><span class=clinicalNoteMacroWysiwyg" id=[id number] macroname=PatientMRN spantype=macro title=#PatientMRN>[id number]</span>
<strong>Date of : </strong><span class=clinicalNoteMacroWysiwyg id=[id number]" macroname=PatientDateOfBirth spantype=macro title=#PatientDateOf >1985</span>
<strong>Date of Service: </strong><span class=clinicalNoteMacroWysiwyg id=[id number] macrona me=EffectiveDate spantype=macro title=#EffectiveDate>06/30/20 25</span></span></span>
<strong>Attending Physician: & nbsp;</strong><span class=clinicalNoteMacroWysiwyg id=[id number] macroname=AttendingPhysician spantype=macro title=#Attending Physician>Torsten Mederos (Medical Oncology)</span>
<strong>Referring Omayra kang:</strong> <span class=clinicalNoteMacroWysiwyg id=[id number] macroname=ReferringPhysician spantype=macro title=#Referr ingPhysician>Telma You MD</span>

<div style=text-align:center><span style=font-size:12px><span style=font-family:[place],Helvetica,sans- serif><strong>INITIAL HEMATOLOGY/MEDICAL ONCOLOGY CONSULTATION</strong ></span></span>

</div><span style=font-size:12px"><span style=font-family:[place],Helvetica,sans-serif><span style=font- size:12px><span style=font-family:[place],Helvetica,sans-serif></span& gt;</span><span class=clinicalNoteSectionVisible id=[id number] internalbreaksection=false originalname=Reason for Visit [...] brought her to the local ER in [facility]. Ultrasound Doppler showed nonocclusive DVT in [...] the thoracic aorta.
</li> <li>[facility] she required pressors on [...] with repeat labs.
</li></ol>
<span style=font- size:12px><span style=font-family:[place],Helvetica,sans-serif><span class=clinicalNoteSectionVisible id=[id number] internalbreaksection=false originalname=Advanced Care Planning recog [...] suppressempty=false>Pain Plan on Today's Visit< /span>
<span class=clinicalNotMadison HealthcroWysiwyg id=[id number] macroname=PatientPainCarePlan parameters=LookBackDays:0,ShowComments:Yes ,ValueIfNull:No pain plan indicated for today spantype=macro title=#PatientP ainCarePlan(LookBackDays:0,ShowComments:Yes,ValueIfNull:No pain plan indicated for today's visit)>No pain plan indicated for today's visit</span><span style=font-size:12px><span style=font-family:[place],Helvetica,sans-serif>
<span style=font- size:12px><span style=font-family:[place],Helvetica,sans-serif"><span style=font-size:12px><span style=font-family:[place],Helvetica,sans- serif><span style=font-size:12px><span style=font-family:Ar ial,Helvetica,sans-serif><span style=font-family:[place]><span class=&qu ot;clinicalNoteSectionVisible id=[id number] internalbreaksection="false originalname=Smoking Status recognizeconcepts=true spantype="section suppressempty=true>Smoking Status</span>
Smoking Status: <span class=clinicalNoteMacroWysiwyg id=[id number] macroname=PatientSmokingStatus parameters=ValueIfNull:Not recorded. spantype="macro title=#PatientSmokingStatus(ValueIfNull:Not recorded.)>Smoking Tobacco : Never smoker; Smokeless Tobacco : Never used smokeless tobacco; Vaping : Never vaped</span></span></span></span></span></span></span></span></spa n></span>

<span style=font-size:12px><span style=&q uot;font-family:[place],Helvetica,sans-serif><span style=font-size:12px>&lt ;span style=font-family:[place],Helvetica,sans-serif><span class=clinicalNoteS ectionVisible id=[id number] internalbreaksection=false o riginalname=History of Present Illness recognizeconcepts=true spantype=&quot ;section suppressempty=false>History of Present Illness</span></span&g t;</span></span></span>
<span style=font-size:12px><span style=font-family:[place],Helvetica,sans-serif><ol> <li>Patient reported that she has a Mirena [...] brought her to the local ER in [facility]. &nbsp ;Ultrasound Doppler showed nonocclusive DVT [...] thoracic aorta.
</li> <li>Patient was transferred to [facility] via medevac helicopter she required pressors on [...] the History of Present Illness.
<span style=font-size:12px><span style=font-family:[place],Helvetica,sans-serif"><span class=clinicalNoteSectionVisible id=[id number] internalbreaksection=false originalname=Past Medical History recognizeconcep ts=true spantype=section suppressempty=false>Past Medical and Surgical History</span></span></span>
<span style=font-size:12px><span style=font-family:[place],Helvetica,sans-serif>She does not smoke cigarettes. She uses a Mirena IUD and norethindrone as well as oral contraceptive pills to treat endometriosis.</span></span>
Also past medical history significant for asthma.
Since hospital discharge admission patient has stopped eating oral contraceptive pills she still has the Mirena coil.

<span style=font-size:12px><span style=font-family:[place],Helvetica,sans-serif><span class=clinicalNoteSectionVisible id=[id number] internalbreaksection=false originalname=Current Medications recognize concepts=true spantype=section suppressempty=false>Current Me dications</span>
<span class=clinicalNoteMacroWysiwyg id=macro_[id number] macroname=CurrentMedicationsTable spantype=macro title =#CurrentMedicationsTable><table border=1 style=width:100%> <tbody> [...] Tablet</td> <td width=40%>06/30/2025</td> </tr> </tbody></table></span></span></span>
<span style=font-size:12px><span style=font-family:[place],Helvetica,sans-serif><span class=clinicalNoteSectionVisible id=[id number] internalbreak section=false originalname=Allergies recognizeconcepts=true span type=section suppressempty=false>Allergies</span>
<span class=clinicalNoteMacroWysiwyg id=[id number] macroname=A llergyTable spantype=macro title=#AllergyTable>No known medication allergies</span></span></span>
<span style=font-size:12px><span style=font-family:[place],Helvetica,sans-serif><span class=clinica lNoteSectionVisible id=[id number] internalbreaksection=false& quot; originalname=Family History recognizeconcepts=true spantype=section suppressempty=false>Family History</span></span></span>&l t;br>Family/Hematologic History: Her sister had 6 miscarriages but no episodes of VTE. Her father and multiple members of his family have had heart attacks. She does not have any children.
Patient was one of her cousins was found to have factor V Leiden.
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
Patient works for a [employer].
She does not smoke

<span style=font-size:12px><span style=&q uot;font-family:[place],Helvetica,sans-serif><span class=clinicalNoteSectionVisible" id=[id number] internalbreaksection=false originalname="Vital Signs and Pain Scale recognizeconcepts=true spantype=section suppressempty=false>Vital Signs</span>
<span class=clinicalNoteMacroWysiwyg id=[id number] macroname=PatientVitalSigns parameters=LookBackDays:1 spantype=macro title=#PatientVitalSigns(Look BackDays:1)>Blood pressure: 120/82, Pulse: 77, Temperature: 97.1 F, Respirations: 16, O2 sat: 100%, Pain Scale: 0, Height: 67.5 in, Weight: 220.4 lb, BSA: 2.12, BMI: 34.01 kg/m2</span></span></span>
<span style=font- size:12px><span style="font-family:[place],Helvetica,sans-serif><span style=font-size:12px><span style=font-family:[place],Helvetica,sans-serif>Immunizations: <span class=c linicalNoteMagabeoWysiwyg id=[id number] macroname=Immunizations&qu ot; parameters=ValueIfNull:Not recorded. spantype=macro title=#Immuniz ations(ValueIfNull:Not recorded.)>Covid-19 vaccine (Moderna) (06/30/2025), Patient declined/rejected</span>
<span class=clinicalNoteMacroWysiwyg id=[id number] macroname=PatientOxygenSat parameters=Label:Oxygen Sats,LookBackDays:All spantype=macro title=#PatientOxygenSat(Label:Oxygen Sats,LookBackDays:All)>Oxygen Sats 100%</span></span></span></span></span>
<span class=clinicalNoteSectionVisible id=[id number]" internalbreaksection=false originalname=Performance Status recognizeco ncepts=true spantype=section suppressempty=true>Performance Status ECOG or Karnofsky</span>
ECOG: <span class=clinicalNotMadison HealthJamieysiwyg" id=[id number] macroname=ECOGStatus parameters=ValueIfNull:Not recorded. spantype=macro title=#ECOGStatus(ValueIfNull:Not recorded.)>Not recorded.</span>
Karnofsky: <span class=clinicalNotMadison Healthcrysiwyg id=[id number] macroname=KarnofskyStatus parameters=&q uot;ValueIfNull:Not recorded spantype=macro title=#KarnofskyStatus(ValueIfNu [...] <td>
</td> <td>
</td> </tr> </tbody></table></span>
<span [facility]Note[facility] id=[id number] macronam e=RecentLabResultsTable parameters=OptionalFlowsheetCategory:Chemistries,Label:Chemistries spantype=macro title=#RecentLabResultsTable(OptionalFlowsheetCatego ry:Chemistries,Label:Chemistries)></span>
<span class=clinicalNoteM [facility] id=[id number] macroname=RecentLabResultsTable parameters=OptionalFlowsheetCategory:Tumor Markers,Label:Tumor Markers spantype=macro title=#RecentLabResultsTable(OptionalFlowsheetCategory:Tumor Markers,Label:Tumor Markers)></span>
<span class=clinicalNoteMac[facility] id=[id number] macroname=RecentLabResultsTable parameters=OptionalFlowsheetCategory:Anemia Labs,Label:Anemia Results spantype=macro title=#RecentLabResultsTable(OptionalFlowsheetCategory:Anemia Labs,Label:Anemia Results)></span></span></span>

<span class=clinicalNoteSectionVisible id=[id number] internalbreaksection=false originalname=Surveys/Consents/Other Discussions recognizeconcepts=true spantype=section" suppressempty=true>Surveys/Consents/Other Discussions</span>
<br& gt;
<hr><span style=font-size:12px><span style=font-family :[place],Helvetica,sans-serif>
Thank you for allowing me to see [...]
--- OUTSIDE RECORDS SUMMARY | 2025-09-07 14:15 | XMS_ITS ---
Author Name Interface, [id number] lity Address [address] [facility] [address] [address] Organization [facility] Address [address] [facility] [address] [address] Support Name Relationship Address Phone SHANTE HERNANDEZ [...] 3.5 5.0 3.8 FINAL Torsten Mederos * [facility] , [address] [place] [address] [place] [address] [id number] 06/30 CMP Alkal ine phosp hatas e U/L 36.0 125.0 60 FINAL Torsten Mederos * [facility] , [facility] [address] [place] [address] [id number] 06/30 CMP ALT/S GPT U/L 0.0 34.0 32 FINAL Torsten Gatito * [facility] , [facility] [address] [place] [address] [id number] 0 06/30 CMP AST/S GOT U/L 14.0 36.0 62 High FINAL Torsten Mederos * [facility] , [address] [place] [address] [address] [id number] 06/30 CMP BUN mg/dL 7.0 17.0 8.0 FINAL Torsten Mederos * [facility] , [facility] [address] [id number] 06/30 CMP Calci um mg/dL 8.4 10.2 8.7 FINAL Torsten Mederos * [facility] , [address] [place] [address] [address] [id number] 0 06/30 CMP Chlor simone mmol/L 96.0 107.0 104 FINAL Torsten Mederos * [facility] , [address] [place] [address] [place] [address] [id number] 0 06/30 CMP CO2 mmol/L 22.0 30.0 [...] hour stability window. FINAL Torsten Mederos * [facility] , [address] [place] [address] [address] [id number] 0 06/30 CMP Creat inine mg/dL 0.66 1.25 0.80 FINAL Torsten Mederos * [facility] , [address] [place] [address] [address] [id number] 06/30 CMP GFR estim ate ml/min /1.73m ^2 94.3 GFR is calculate d using the CKD-EPI equation. FINAL Torsten Mederos * [facility] , [address] [place] [address] [address] [id number] 0 06/30 CMP Gluco se mg/dL 74.0 100.0 74 FINAL Torsten Mederos * [facility] , [address] [facility] [id number] 0 06/30 CMP Potas sium mmol/L 3.5 5.1 4.1 FINAL Torsten Mederos * [facility] , [address] [facility] [id number] 06/30 CMP Sodiu m mmol/L 137.0 145.0 137 FINAL Torsten Mederos * [facility] , [address] [facility] [id number] 06/30 CMP Bilir ubin, total mg/dL 0.2 1.3 0.2 FINAL [facility] * [facility] , [address] [facility] [id number] 06/30 CMP Total prote in g/dL 6.3 8.2 6.7 FINAL [facility] * [facility] , [address] [facility] [id number] 06/30 PT INR panel INR 0.8 1.2 1.2% In patients with lupus anticoagu lant or other anti-phos pholipid antibodie s, theINR may be falsely elevated. For such patients, it is generally preferabl e tomonitor chromogen ic factor X activity, which is not affected by theseanti bodies.Th is test should not be performed on patients with hematocri t <20% or >55% FINAL [facility] 06/30 PT INR panel PT INR lab resul t note This specime n was collect kelsie rojas. FINAL [facility] , [address] [facility] [id number] 06/30 CBC w/ auto diff WBC K/uL 3.0 8.9 7.9 FINAL Torsten Mederos [place] [facility] [place] [facility] , [address] [place] [id number] 0 06/30 CBC w/ auto diff HGB g/dL 11.3 15.2 12.2 FINAL Torsten Mederos [place] [facility] [place] [facility] , [address] [place] [id number] 0 06/30 CBC w/ auto diff PLT K/uL 113.0 364.0 512 High FINAL Torsten Mederos [place] [facility] [place] [facility] , [address] [place] [id number] 0 06/30 CBC w/ auto diff Patricia # (ANC) K/uL 1.6 6.6 4.4 FINAL Torsten Mederos [place] [facility] [place] [facility] , [address] [place] [id number] 0 06/30 CBC w/ auto diff Patricia % % 43.0 74.0 55.4 FINAL Torsten Mederos [place] [facility] [place] [facility] , [address] [place] [id number] 0 06/30 CBC w/ auto diff IG % % 0.0 0.5 0.4 FINAL Torsten Mederos [place] [facility] [place] [facility] , [address] [place] [id number] 0 06/30 CBC w/ auto diff IG # K/uL 0.0 0.03 0.03 FINAL Torsten Mederos [place] [facility] [place] [facility] , [address] [place] [id number] 0 06/30 CBC w/ auto diff LY % % 14.0 41.0 35.0 FINAL Torsten Mederos [place] [facility] [place] [facility] , [address] [place] [id number] 0 06/30 CBC w/ auto diff MO % % 6.0 15.0 7.4 FINAL Torsten Mederos [place] [facility] [place] [facility] , [address] [place] [id number] 0 06/30 CBC w/ auto diff EO % % 0.0 7.0 1.4 FINAL Torsten Mederos [place] [facility] [place] [facility] , [address] [place] [id number] 0 06/30 CBC w/ auto diff BA % % 0.0 2.0 0.4 FINAL Torsten Gatito [place] [facility] [place] [facility] , [address] [place] [id number] 0 06/30 CBC w/ auto diff LY # K/uL 0.4 3.6 2.8 FINAL Torsten Gatito [place] [facility] [place] [facility] , [address] [place] [id number] 0 06/30 CBC w/ auto diff MO # K/uL 0.2 1.3 0.6 FINAL Torsten Gatito [place] [facility] [place] [facility] , [address] [place] [id number] 0 06/30 CBC w/ auto diff EO # K/uL 0.0 0.6 0.1 FINAL Torsten Mederos [place] [facility] [place] [facility] , [address] [place] [id number] 0 06/30 CBC w/ auto diff BA # K/uL 0.0 0.2 0.0 FINAL Torsten Mederos [place] [facility] [place] [facility] , [address] [place] [id number] 0 06/30 CBC w/ auto diff NRBC % #/100W BC 0.0 0.2 0.0 FINAL Torsten Mederos [place] [facility] [place] [facility] , [address] [place] [id number] 0 06/30 CBC w/ auto diff RBC M/uL 3.9 5.1 4.39 FINAL Torsten Mederos [place] [facility] [place] [facility] , [address] [place] [id number] 0 06/30 CBC w/ auto diff HCT % 35.0 48.0 38.5 FINAL Torsten Gatito [place] [facility] [place] [facility] , [address] [place] [id number] 0 06/30 CBC w/ auto diff MCV fL 80.0 104.0 87.7 FINAL Torsten Gatito [place] [facility] [place] [facility] , [address] [place] [id number] 0 06/30 CBC w/ auto diff MCH pg 26.0 35.0 27.8 FINAL Torsten Gatito [place] [facility] [place] [facility] , [address] [place] [id number] 0 06/30 CBC w/ auto diff MCHC g/dL 30.0 35.0 31.7 FINAL Torsten Mederos [place] [facility] [place] [facility] , [address] [place] [id number] 0 06/30 CBC w/ auto diff MPV fL 9.5 13.4 9.3 Low FINAL Torsten Mederos [place] [facility] [place] [facility] , [address] [place] [id number] 0 06/30 CBC w/ auto diff RDW % 11.4 16.1 13.20 FINAL [facility] , [address] [facility] [place] [id number] 0 06/30 Antit hromb in III activ [...] increased thromboti c risk. FINAL Torsten Ng [employer] [address] [place] [id number] 4 06/30 Lupus antic oagul ant panel LUPUS ANTIC OAGUL ANT SEE NOTE A Lupus Anticoagu lant is not detected. For more informati on on this test, go to:http:/ /educatio nTiqets/faq/ [email or web address](T his link is being provided for informati onal/educ ational purposes only.)--- --------- --------- --------- --------- --------- --------T his interpret ation is based on thefollow ing test results: FINAL Torsten Ng [employer] [address] [place] [id number] 4 06/30 Lupus antic oagul ant panel PTT-L A SCREE N sec 32 FINAL Torsten Ng [employer] [address] [facility] [id number] 4 06/30 Lupus antic oagul ant panel DRVVT SCREE N sec 40 FINAL TorstenJosé Luis Todd [facility] [address] [facility] [id number] 4 06/30 Prote in C activ ity [...] ations. FINAL Torsten José Luis Hurtado [facility] [address] [facility] [id number] 4 06/30 CARDI OLIPI N AB (IGG) GPL-U/ mL <2.0 Value Interpret ation---- - --------- -----< 20.0 Antibody not detected> or = 20.0 Antibody detected FINAL Torsten José Luis Hurtado [facility] [employer] [address] [facility] [id number] 4 06/30 CARDI OLIPI N AB (IGM) MPL-U/ mL <2.0 Value Interpret ation---- - --------- -----< 20.0 Antibody not detected> or = 20.0 Antibody detectedT he antiphosp holipid antibody syndrome (APS) is aclinical -patholog ic correlati on that includes aclinical event (e.g. arterial or venous thrombosi s,pregnan cy morbidity ) and persisten t positivea ntiphosph olipid antibodie s (IgM, IgG Cardiolip in [id number] antibodie s greater than the 99th percentil e; ora lupus anticoagu lant). Internati onal consensus guideline s for APS suggest waiting at least 12 weeksbefo re retesting to confirm antibody persisten ce.The Systemic Lupus Internati onal Collabora [facility] immunolog ical classific ation criteria forsystem ic lupus erythemat osus (SLE) include testing forisotyp e IgA, which has yet to be incorpora aries intoAPS criteria. Low level antiphosp holipid antibodie smay sometimes be detected in the setting of infection ,drug therapy or aging.For additiona l informati on, please refer tohttp:// education .Kaikeba.com/faq/F AQ109(Thi s link is being provided for informati onal/educ ational purposes only.) FINAL Torsten Mederos * [facility] [address] [facility] [id number] 4 06/30 Beta 2 glyco prote in [...] olipid antibodie s (IgM, IgG Cardiolip in [id number] antibodie s greater than the 99th percentil e; ora lupus anticoagu lant). Internati onal consensus guideline s for APS suggest waiting at least 12 weeksbefo re retesting to confirm antibody persisten ce.The Systemic Lupus Internati onal Collabora [facility] immunolog ical classific ation criteria forsystem ic lupus erythemat osus (SLE) include testing forisotyp e IgA, which has yet to be incorpora aries intoAPS criteria. Low level antiphosp holipid antibodie smay sometimes be detected in the setting of infection ,drug therapy or aging.For additiona l informati on, please refer tohttp:// education .Kaikeba.com/faq/F AQ109(Thi s link is being provided for informati onal/educ ational purposes only.) FINAL Torsten Mederos * [facility] [address] [facility] [id number] 4 06/30 Beta 2 glyco prote in [...] olipid antibodie s (IgM, IgG Cardiolip in pnq1ABN antibodie s greater than the 99th percentil [...] additiona l informati on, please refer tohttp:// Stuffle .Kaikeba.com/faq/F AQ109(Thi s link is being provided for informati onal/educ ational purposes only.) FINAL Torsten Mederos * [facility] [address] [facility] [id number] 4 06/30 Beta 2 glyco prote in [...] olipid antibodie s (IgM, IgG Cardiolip in [id number] antibodie s greater than the 99th percentil [...] l informati on, please refer tohttp:// education .Kaikeba.com/faq/F AQ109([facility] s link is being provided for informati onal/educ ational purposes only.) FINAL Torsten Ng [employer], [employer] [address] [facility] [id number] 4 06/30 Prote in S activ ity [...] thromboti c risk. FINAL Torsten Mederos * [employer] [employer] [address] [facility] [id number] 4 06/30 [facility] other lab See printed circuit photographer d 06/30 [facility] other lab See printed circuit photographer d 07/03 [facility] other lab See printed circuit photographer d 07/06 PT INR panel INR 0.8 1.2 1.7% High In patients with lupus anticoagu lant or other anti-phos pholipid antibodie s, theINR may be falsely elevated. For such patients, it is generally preferabl e tomonitor chromogen ic factor X activity, which is not affected by theseanti bodies.Th is test should not be performed on patients with hematocri t <20% or >55% FINAL [facility] 07/06 PT INR panel PT INR lab resul t note This specime n was collect ed periphe rally. FINAL [facility] , [address] [facility] [id number] 0 07/06 [facility] other lab See printed circuit photographer d 07/10 PT INR panel INR 0.8 1.2 1.2% In patients with lupus anticoagu lant or other anti-phos pholipid antibodie s, theINR may be falsely elevated. For such patients, it is generally preferabl e tomonitor chromogen ic factor X activity, which is not affected by theseanti bodies.Th is test should not be performed on patients with hematocri t <20% or >55% FINAL [facility] 07/10 PT INR panel PT INR lab resul t note This specime n was collect ed periphe rally. FINAL [facility] , [address] [facility] [id number] 0 07/10 [facility] other lab See printed circuit photographer d 07/17 [facility] other lab See printed circuit photographer d 07/31 [facility] other lab See printed circuit photographer d 07/31 [facility] other lab See printed circuit photographer d 08/29 PT INR panel INR 0.8 [...] collect ed shelly rojas. FINAL [facility]sten [facility]ito [facility] On[facility] , [address] [facility] [id number] 0 08/29 Misc other lab See attache [...] Onc Consult <html><head></head><body><div style=text-align:center><span style=font- size:9px></span><span style=font-size:12px><span style=font-family:[place],Helvetica,sans-serif><span class=clinicalNote MacroWysiwyg id=[id number] macroname=PracticeLetterhead spa ntype=macro title=#PracticeLetterhead><img src=data:image/png;ba se64,rYXUJq0JVydPRBIHMOlIWwRJMANIYPOgIWUVVTI5Ak+VVRJNIBVZKRRLXH6DGXVEcWDZKm6qZEE SpqmRTTWBRRv3P00zDkD rx1MjJhmujYECWFCNLX04sZTqc8B9CYEgO7wbFFVll79pLMnaXVFPCN4rZTABJJyzHXlwWTO9XnFlmfu qVFXvYn6jCJh3xR2phZZ 8NRP0xBikurd7ZWEzOW6uFLjkqghxHQYxCtMwzNn7iNA4rs3aYZZdBgCgJD9QGCTgziMjLw5dYOBiYIQ uUzsyXCM1HKX0USJ0EBR yULVcPjG5LaSnOBQqYaMnKmKmRPYnODHaOKArRaA2elQmTwWEXyT3sXuwgansHUR1Hxe4wDF2Bh69x6h fexXbc6OqBjV8GNqmDUS xCjOrmaKiFLH6yjAluG8vtkQvRlE0ckOmYmJpf8CsuMM9wQ8cGVQhOybjHu33bW7eZxD3sSmzsgs9wTY 7Oau2kVC9Bn8zvb4qIP2 mPW4rg92twPXkXnNbLQ6wFKhjzP4gQnAvZLXfeZGaOy1udUDmzC7lqvhwESRtTDafsUWxjHUmMK4qAoD bdA5cxvA8kLvokE7hlK9 xWVSmvTOpZw3dzfFvJYEsYzYvP14pC7Ogp9Knl0aefJ7mEqGsDbI1iWxrast0aQBIUO1euHW9qPvrG96 aXoMml2FsRwHwhK95SWR kJA0sD76kJrYutI6nzxG9h1IOdjB9Xej6nKS4Oj4mor2iAW1jFJ9rl94aoXVbNhNhFW2sEZohFQ8KNZN wsXJuCIR0VT38HfFeyH2 cXgHzJTT4q6NHx19kVPUCRN1jBVXMvL74c5Joj8DmOdNwFNLiOJLdjD83f1KtRFRrhD9eMpClRQN9LHE wmTI7GtGcPyQyTHGlCza XQIC0Koy9VaUaLHC8WCHnETqoiObIm6AkChnPNETwTGDhFGQlQDYcDRQ9WMWiUeDlVID8PmElDcA3wNI 8GTQ3BCZvxLVIURRiKFJ lPGOkQMUwIWP8CHVuEpYsLKL9KiChLrWcZudka9QcCQT4JzstTTmsB3RxNaWosQvxfE8qcF1mFoJnnU4 zDQ7xJX0jZmVheO8zSE1 4TU7zfQOeW3RGTY6unF5xSwkjYMx2PDHyGfXgJI3vCNQzYMM9GpyyQSa9IS68UqM7XQFkJuLoLXUoQEf quZ5CVaKvZ3HgLK45GPT 1EsjyiD4jyCN5UIZoXqYeMOCcWtehTb76TYD6ZHf9IdthVWXcTxSdN2N2FUViPtE0oOEUHOzSnerniE3 dhWHmY0BaXP59EMU9Khw nhF4ucUO0SRWvOkKqOMVuHvjgNs34RVC4HZj3XlddZENhSeGtG2C7BZNwOb1cMOScr5Suj2fjcPjGv9R 6hHNboPAeC0PlqW1sss6 gPHJkZjpCYWc+PFneRRZ7kAo+mM8bSaRqGPx4LrY1B9N1KZZyYQSvLCA1QHOwXmzFZMF5OgZQPvWsTNm lvrCeYkgzPwT3A1DtVju CYWc+STtbkOqllO0uhY2iEnOvE3HrJI76UJ3kOMS8t0CeIhP8pA6jBB27SQonxB1jvQ2fELQtTeeGIVH +OAylWQG8jArzg4OZbbW 2CWG0lH8zTTOrbuGgtCGwDuLpuGJ5qMmljfW0BS4gOByMASN8aQGyuVodKwfnWxEcHYZ8ELX7JGUtUHH xKD21HYi8SIHzVEroRUE aDLA8IrKvq6XLkiJ7s7qajs3zPlPaMx0kVF8fH6KgIZlcUGlkIQ4eEnjqFPUtz7YNowA6s50laSfofwX ZX9CchP2nZPKpQvFkKBb tyX1nqK2zZWJpRwGkMC3tZ6ueqU7bcAphTp0qTO8bASG9V8BpGvW5H0awkI3GIxoki0Zggeo+IDwvcmR hCzLto6LdnZJ9lQ6bQfE 4P1RoQniFSPA+FWkqvMg2gLYgVLHqLxJ5Z8urCZAzIGJxYX3uHOWzLm0+baN3FWAFMkDABMXVyJqwoCR gFEcXwN/K+yP0vFU5KYK obsWDOx/gCIIhrTlqELBvQkydga3OQRxdOHRfUBvkK4ew/WV3vj7YwmheMwOMdfV/df65r34Jsm6+nXn zZpZgWRYwGAymNEAghEq 4KUjXCeDncXStTWsEaMHZgTLsFQpjPWiwIWRLhhOAB0MTqGjkfeClFLRMiVLmUEzduP2jMuA+J5FNaSw /zijNyJdG2uRFcvZIa7d DMF6btf44NMgdaJIJz/bwsQ2cRA6FBdYs0naZBl7f0pe9GIHoFFZIYzFEuvDhtjTDte7e/zBpUmBgYEm CYEN9pHuY60s5x+futCm JD1H5KSc8QmAO9cETad2MWUNeHUGYeCxZqQfR9glPImimZqn8yWGNCxvf2lHWLIwpYs6A47PEQr70W9B FswcVmq2d01qfOxAbeoR M0uHDAAKVVn0VGdAqZGuSjPCFc+LEEumob7+Z+nQMJZ7nKZrKEtuQw2Xz+mJrL9Pap9SKa2cf+8ef/Kr O7TyBaJXlycQACJGsFHQ TSJZzmyj39/oLf/5BkMSEiRPH//EOfEWxO3tCCtqorok+9bpXj+6flJciRl1e52V7PgID31QPXRVRnQc mVSe4dGiLWLd7zlZ5iG4 6tz2OzqG9B8XSB/IkaHzx30//A00uMHgAcC3R3grDueKezwxEVMAcy0zxtv66cwkPGw265cY/v/9nKSz wyyXOBBxiUNBjBI3Jzq3 nKEo4ppWhsKxmda3bvpZckK+/v7//vAFgwg3nQJ+48+kIi3krf7KUlpv1xCfgF+zetnvJnEaNm/yybGl wXxKSoeemRrdQNHKuk8x UvM6BGuR6/NQIPk1P+i4K31UYFbEtLeoSh3UHh5dcypM8YuTMMJXOVKUBGGGvZASKOAenGFq5QZrQAop DBh9WP3pMC47dYBHr3cX Fv/smiYPgKmkzhV1PQwh3iXVfjwe+uihM8KcZPZkIXVOhWGauNT5WMjEINrZUQhqkQ9JGcQq5d+3EMf9 +dJeJ1twzw40wbKLqxd2 Hu8Gc0EpHjfdWz0Ja70H/ftQsQa2uTKzkHEnwqLp1/2dyur8WsLpd7fEj+7ByhsZKS4vwHiRcOHLZr/+ KUnyEQM8edi06/+K5W2d Twr0VZHL0HVasEpAak62Xu4D8wkPIAwZSrny0+PiZSv63btlrKwuoNhKJLQJzExf5Ssd3mejPPCDc/m1 gnJF6S4cbe0591gABVoc ZHNrCEe2umuz3so09geTAgNoiRXPnYBVXC9AqT9iC3QlgvCkKkIrzCZGKcINCKaXnB1xho0WCxTcp8fW 1vEDjDsr5brZd3KP0w66 6kzJX0EsjiRv5zIr20BY5el33w+Qx7LWcf/9+KmZ75tr89g895o6Ro8GalNQuz1/fth1/iYz6iF28xIk rQRgMQgihJYsX+/v6eXt 7mfvdr3gCgtFQFtkqmagQdSxA0xnqjbF4VCxxgATJEIh7uPFlXkSFyjthhDPIdNCz4AiMW+GP+o4e6+n m1jWXRfjxyHeWrlN5aH9 oXz3Nphr38uuRagzGk5yN0Gx8kzSi4K5wXk5umLdHplUx9V29bblRP4BHGGVGpbzmNYOk7UjZlRNlQ+7 SxYsFicXHx/i5qFge6Ak eJKeeZu6aFRr80zcB0enZhvdUCwrJBzbl66RjwhtjHCZqVjxzRB8VaZCiHHt836BQXYohr45H6YAnUhB 8zvWVt9b9k6Vk8qa5Qlh I+W+AFRYGIYS+GTmqnI+sg4wxkG3Qgq+L8NxKPxPQ6OUHdemHnJ6OJqX6eYpFk1+zi8q9U0vmiZ0nd5U JuKDoQojp620eU+dXfyb hUsWGuiF90YvkTc7hZSszzMvV+a+Dx8yAHTAyBfi1xvwKgfItVr581D1IuZYbNBoknNMjyk6lpL1Pbs8 tQXmRg9mOEOLOMoATgOi 1SEMvMzWQkYw650+HRz9+FQLJYl2iM5SP1ni3VnRmYMQx5A2A097NHemB3V08U4KLLDWAIcTDDpM29CL KL59bwqlC6wcOeomSyWB eMfVmr94tnw8swsjVvO56HsB4CihJlg8Dzz8aZnKq4f3gq6zdCR1yBBT46auSi7qKLzg7EqpwhlEtPXY /DDZJWAw68Khpk83lb59 WqZKLxR7iRCdR2hnnL/4gvV4/a11eRYSRVg3Lj8WeA+9Iq1FH/6Y26RAaEZYx2ysEVAejl026z8/nj1i /YYPKVSqHnAspSKMBgFA c7NOxl6Ovf11AbO/R/MLBCgsDqSmpDMPUq1+sXRoi1Lp87hKrCejXrwRPAez0l5bV+/QzbGrWrza5h3o 8HwEYsLuoRnzWOi5NPQS vVi5b9UD2/cuvt93tA4+2SNITWaP4iEIyzPCPo2dSRab8faUJGqAMgS1q7LD3LOTgVUD18GLuMPoKsmd HsEZYDZlbYp66Sk0+/fT w5cGHdpy8eqbtcYSamj1et19ZcY8IKh2+3Zhb053NUxGtsovGDRIVW+B4ERHTOODmCjIKpNqASQqs3SL Xv4zUPeg0s4t5lDf7tUl vDDJaaVJUyuz1eb08AtmxIa7ueq6qkxh3wIlkPOcenClbLjqYiq6egSI+vWCFhQGKokiStHdwBACTHzF B/LHtYiIS1bz+xtBNU9o qtf3XFdzjwLsUavISMEtgNFuS3CVb6qCJ6bUYxcCfuydS3GSYVAKKRYJVOxDApQOxHAZaRyzDXCM1aaH dIItHdUXHfysHaxKR6y6 B1tb+6VgMJLi1hGNdkfLw9UOzuFdpk3qFuNYoZhcCxC/iMBCSLui3UqeuUzpPkTZsz0WdW22l+fLli5c sOv5qHJhlcO8Weq5n9kQ gQtvEYLm8GexopTuNankhscVqEiHiFxSQVGldwyc3gml14acY66vdSJQLV1Elrn0UmIxvL+4/aNuyVfn t1Xn5g36tUnrn9jrSYET AwCJAfFuNICQSiVAo/GH9vTt9keWJHbvzQFGBx7xRNF6PYXcmU3+gIp1g8E2ld8Gowohsr8UKcy/diSz cqTYdz2kMZnsmxWcyr/A IKl/Bf+I7aJMjVYWmUFTC69b2W4DonH06f/y5e+Q0Cz9aD+fyD64wizWFQN2i5k886YgEoxGLIRLKady gEpPo0nmh8ae32RQrl6i qWrfZIhA2zNIY3ekTKRVXeMRbxtoImMoRD45+iroXdkfeemgfqq0m4yZ+/S/jXpbxKtOle/fwZw1aNSr f7RuiD9jRnqmqkWzUOHm w7qv8MU6/HI3OR5kF7/KMILrCvAWJGQe0WIKM302gRJb49mLuZ8cMveqEaEtJjgSDbdZ/Uz36/K9zpw5 3790/f/ZsyJmzi+bNW79 2yvq16BeUEu4g1BhGrKhAvtnR2LatVjz/jxO7ISNKUP+io8t6+nRe8nWqmDvxebeA6cidb59Y3rlb1M4 ++ntJM3qF0mH6RCKHOW5 CkGP8yq6TApLDpACToAtF/ydSBippW7y+ja8UPBm04BXiheHzJcsnTObsPEtHVKKRUvdc1YxNOUzen7x xF4p3KqtdPf7mm/cr+/v 69SVVRZh/MhjPnRQd59/AKI2yK1S6awCTGxv678KGOyfVV7pVYCEtAXRtE65RuQHgpD4aKnf1d+imzet m5bnAx4iK2gIV3n9Zybw XBS4JtgmvCGrVYxl0cSfij4TklrtV8+jtkrMQgxUIPoY1Cke18lSc4+7gk0Ib6PEr1mCSZH9AK9xuwu1 nBH5QKWEWNkVmPTBQqos AHpVoMGGolTjlEk2yhTvJkz46dzdwMKvIVCBWeNRfQbaLDB7XM/kiNFtfk4UWq3iSvd9U7KdvKxx6T32 e5c3hH/FnOYQIskWrFnl 9GIn50QtJtgkEoRdv1xz0q7Vh8afOhQkGZsiTnn8qBjt1hZD2Sl835fiIim34yIuZtEz9rHzuZdnQ/OV y/953de99pKwmehjkCp3 AbvmTG9yw815BaSbjHUN/K3JoNUBcvxi2oq6eqhWQL/88cvfXx3kB49bGs/1VVnkYamlJRorJ807vUUx IK9lKJsnmu8B4I2LOQS2 kKi6Jy6dX7Mm8lrW949eCa2iPDNLgrt7wYDqVffFdqH+TSgneRh5aBGw20zrn+quQ7ymS1l7xAejvI1y 0HHAAHEJv/wRodEZFVqZ Qo1i1s7ddjDjQz2faEGMyx0I+1u6Qm1IEPQ9Reryeu9OmrMdr6NabKMIS+92T2YLTyHGyQvalYVVxHsa YLyiB1RcTh1gzXVE7mtZ lXYWYEgArrC+AtPban3jNiquIgtipi+0HupwUNXa6Rxgc+QpJ9UxUl4bEzBPG/tgNQGeiY1ao7LB4phj BdM5URD2yCbZo8J//OYR 2udIAUpikserclBxtk3SzDpcZRZIkRHZzlAdJtJJKOFr5VhOmvFyz87H9oO0HGkINj1iSdl+6taQrEvO 3sPbbsnLtQ9vTsFHB9Wh XWdReUjLLg0SLd0Fd9qhsjigVKVfCD7Yb5HThNPdJWmj1R0YUD24Jwi9+P0lZzDA9Cm6kZ/xxcNVVL6j m590lENk5xUrAzPjkOGW CZfSS8My6Vf0+WhX3WvaNm1VRkOTh05b1I1lr6km09o7GQa1761RRIpxew4OF1qeRev+Nt7k1ThB30vP +H6JeTSqYGRC3JduiegS faoEnD+1BLBuszBpUXPTxmv2+Ugt4DNIMNDo7HtK39q/8BN41bBwIThfUbgC59WXGuhZb1rdmwjCWTPd Hdn1M2cWEo01Bf0LWBpB uLiG3FGWttY7qmSqA3Kkp9DXtOnjddK0y2wJqL+wvn0DvkbD32ngETolRj9etLGctuAI4+3pd+7yJjTm js25TTDdizlNVZb3GtNi LL3eFRSAhv76ggLQqXl6VSQBWbOQJP/Cuhp8WCrwGKuMrVgt4mt/HeYOVvel1mb4Hz6OzqI0GYJdcbTQ /8KLJwkXECe97eWRtBnI 5wArry+OpeJALqR2xmFC95rmP4+pf5NLlujBnbLkQSyY0o3oSxlVXdv8fy/b0QN+NzmMZQiyR/OOdQdO g8KWhkqdNxRFsRsqL9Z8 shs72kcZCdr0JeguMrrl8CqMQrhv9J3QXJa8Gp470T/0QbIQ0x+8+egNEVJ5zQTaBUknK979MuyDW94s yjzQzgTEKdQwZOcz8z1h DPkMOL/ul08GShjnNu46x2i8apMQqvCnfQJTgNxUp2cBzXZqAAbHhdNTKNQsuOPzngQsSmyvtIcAJfME PrqzRydCYldRfk8djNtf t5Qooll5qO32juAlm8xVN7sTirCuMWq4u8YqVF9OSRfKiHsEOUp0jjAtNkYI9Tl9PhATYw6I0pvA5s0a yeOmv0h/5Evu4ExNg5Br HTYGLloJOAU7e+tVwPWotsyhQdqzTAoYbbF1Agup1sIAtNjaaDSnVVSPdQISZn1REkSlG247xPQMlF3V aU7xlRA5ZyGK+IJRKpU6 hEmiuwqcDKrZjEysRYFGrc3gexOzMIPaZfiRoer2wJMLSR8W5Ui64K9MB/yz6q/V2mNdkgML8NzgqWol Z3pJ5aJkMluUG45o1/2K 6u4A1vxMXLWMkeW1F9vF+JwVTHXXlGSQaCWMrHMwuc7RJJbkA36PIErq29eUGeVxiCaVTFLbMoiY2bv3 hjvzM9V2bvanvYIFBDAU YhmR4Th2LOuWZZU0FQDUQYLnnOQ8LtEbUeeS9REj5S5ka7vGcktfNXMl1YRFIyVoOJXPJf9Ij6Ejv1Ly SaxeCiGEmsrQkzr8oESq wFblw2v8bOlbSODdg7Rn0GfKJQE726LxPV85KGfkZff6UesiWjuYA+fPyLONZcpWK+zzjxeYTOFlKB2N iAIIMXbTqpSlmcnPC11U UL2K5374EB7g1TJ/j62++hxhXDk9gQJncwgZogswNcCTYJEpSqiHCV3k99Qoeho5bVcnYERtop8BzpSu 0Y89OLfIYUpYYPepfh7Z BcTdLPTAlJ8tpimzvqdKG59eqH4aTBS8vztBtPUpbqsH3F/JZRnHtmEMz2LnDYc8Sx3SHn66dZi84VeT ttmMH+ed+X0cZ75z5g/A 67MK7qA0Ii4RAVI/PkTuWcas/Mxx0i05R262fXO+mdu9ryHZkBs8vvocrlIWRVzzncAKiQb2pEY1fSgE oAtykO1o67wt1pxnRSnZ wFjkWJupY7ClvQXQz+ZOpGozUhxCUQCuHf0EE5V2dq88GYRguPtjS74XKXJkVcVoQWL0GwDdADU21d62 AFDVnctM00Xq8w1ls3T6 UZHIkySDE/mpQ1RzxR0yWWJRkhiwlZxHNoec8PND5HZTxToZl3uVzGZ72a+Pp+XRlKM9bqQQOjvJSw6J gRE5zCGQ/TM5UZx0Gp6I Rtwk4LBkQEmJfDTIg2eczbP/0hjxUf7KfIHBGqebz0q6zx39drVxqWBzpVNg870JL5+Jw9LNYckkyUYQ x+qeXJXj6J3IS5+7d6tY y8NVEzY7KDTV0yFGh6vVYs69kVi/NlJB5TWQspYDSWJBy8vpASvy5KpsyJDIEJG2JkEIc/Zq1rdl/JIF QbPRjtVpPUJZmr7//5wB RCo8NSsHy2x84R1VaRd5c6klLrdIZRjer/dp62YP7nonbvW9NxJUAVv0YA250qbSef31IaXfuG8L5xNZ +X8gwzUnMQNV/SfPmuuy wkxgyNt0VUfRjaGOmPeBinC10u4sYlYrtz8RFutDsrCcjn1Ola2Ws/2NiJ3oRETFQOKGYGFP/NYuQAyS Lo6BFbY3bkA1HRycgdvK hkemNRiMCBoHeYJD7+Fij8Hu15t70K05VaJ0RiZi+lz0XzEjfEr4dpl9iP4s1eAHY6qvRKHpnx402p+D 9ecLjC2d/Jmswl1iHtKg ajy1tFBv2mYeSMD4cVTXDIMAPIuB1t2IvFUPwv4YBl3egFcBFL8JMdQndBqaeBU08Xh68ZqTN1e2HnpA wWb/0C0z0xdLuySw4v6l fQJNdJ369iCz8CdOl46mWsidfoMpO56uUo9g/eGjYawpka5Hl2d5ct8h6KqSgPxlpXPWsA0dlGP3Be10 SQomIUjSo9IX661P1w/D L1JSjG1quzshP7Zw/848KFVxXDk9Aqco5yB6Y2yTWJmr2zg9/K9oCDOxehLGZjqE3vghwCxoFtsJg3Lz l1lc5ekoiuRgipAmIP8t NMAATzgC1sDhOcbde949w93qsEZH3/ejYlhNZNP2VBzQJKPBsu8WzasRr6K9ADzmxk7k21+IGQJ358uB hsVzOIYLjPnZkkAOhVPb 2aeH9828FAVibB6xu7hNx1R3yd9DhoMSjR8BJHRgAhXhnlUxynLlbRpgcQvHIefd/88/dPr6+YP07aHN GK7409vurvOnVwoP43+x n4VwvIIlyQgoeg7qgcjXx0GV8Z2RhgYJKTI9zt3KajFKAcF+v2IoynnnRoeKE9457ISi4mXQE6cWhy0V Vdsvef2CiSJu48HKfqML scE92qZq75dBy7ayRIFnZT3DNLCMtkleBbDyx/vsceUUQZl5B0W+Nn/X64KHusfnxlUQpmXGXi6Ww0Lz vtucJIKVfPU44/ZJD9SC I3zXUZyNDb7mTFBY55Wgt2Q236WTkp2d2zO0hiVWiOzLfYWh7ys+wTgHoZgzQyfype4RsNletdOlwD6a 0lu70Fct6suigD7q8nUC fdrHQR6IVyeY01MbnHdrJFlJKcG3pb2ePeUe2USAecqH0aJEUhGTCdIBqEuLF8Fqf6Y82u9kbszcAlqn mgZcm7Frpe9Vt0eeJRGu RWytISg1lCiYDBUMv6b7tzi5UQVe+OVsksntcD2YcNMRtB3IbXPV3dxIR53bG+c1auuSCggel0+YCwLP tApJkhpzgD82xZ7r/kPv oqfh7OZuJ7jBu4VY2k9U10gdbgQBzJ14XT0/CWsCUBrDCwkBiQgJBkpxYqtFpxBWr+2TXiGq4ASsk8wk cdZeSzkPOjxW6FeDUEtN jK4sXg6jED45nC1T54/sxjr//SLTKjpRtsjjXWvvbf0gQAQMuY3YwckBQrzJg+L8Er6lxUQQ9tFr+0/T 5tpeoTR0uSxAizXbiyAS +DT9UIMXXheFoMxmZagsmIDTFj8TTyL4aVpNXAEHw9Sl1lY1jSeRhNWQEFPjbMPWQdsZVBhSdr0I4KVF AOLjYd+nb10vlGfySAzc kSvug6jYPVfY4/PmOkQxt4pOEfgI9nhSJh8P7Om4WgPU59t1JJZNEaDIDYBQi3uev9ONFxmdFoQArKYW +8igJvrGGNRbf3Hf7sMh c92gSoZORUxMAISCHU4Qdoc0fSFlr8IN9GsRntzIeZtFHaH1fOMISWWiQMe2GjlKGqfmERQyC2pcTVjJ JS8TQ55vw4txvIOMIgWe n7Bm4Yok+issFup4S5ST/OuGtrsnh8L9vAAXYQqS7AbXv8i85/kQqdLdUA3LFgBrOVlPMWoZoOKLgNJn vVaxQoxmiMqDRpKy5EyF gwIAK6Pelb9fqKPw5o5RGd6YB+DhUCOhpKwXMGQv8N+8yvkNYWtuwveJxeMHfKy9RVCRUYUMWFUxrwXe boaZ4mnlqEKTA8ASZAhN DkmKGcHphixd9KidHnpZyetbjXXxNceNzVJ6r7876o0yrxZoiMfxnGhQbekPZWLKLFkwnbGVLNJhpuQM eQCCjNxt6H+wcKEcXwt6 GtpMkVU38D/cgnYaoXkfFckijfpc1/RTRyCrdEmfHE90bQeqtaP62+UQdvR4WJnPeZz7bHL31L7uiqpm ZsiRyCmVahn72R/dNLOn tIuU9kEEVi8uJSaDqTKN/Xu5mpey8ff7vyEMap3rABjhqERIBpWSQJreGyHSm7FOj8FUgpn6QKuzKA7Y vQKJxL9u8LMj4OQe6wtz 1DvV9HVmnAAOaByD8yFNsxl2mfjni8Nsc4aqSJXjlF+bARTDErbGhLWFDrhRdRDAKDFZLYVhyZ0gpqiC fQIvOoFUjeLtCMRAkBPc enDw9A4xYciABqoD7warrznWEqmff46pTx3jLiGCGHCLwbCH7Y9yTXinkpMPDCwos1PfBFNhJHyeGbpd p6o6QHOY5KBd7x9gZl4F pRfC02zlA/GgVHgaNIPY9zOPS9sip1MiEwt5HRwCMrNqFAMNJLMQcgdLLirpcpjjuODkroaKnVD9MaOu TV2xQR5lOvLWiuI6sdw7 q69fF9+/SosAq+wOdb3pPX20D/cYlOJeJovWx7F4DplOt0BCztlQ6/OwsAqYGqMOnGY5oiHDGFPR1FkC /S31g/s3sxHYXvUrYfk8 n6Vrj3My9abZFkDaOSBdWfbFw4oWUA2gdmFGFDV65PHLUZqtGL0QAlASgrba4/Jf6S0s3z7+oLsrK7fn tQg39zdQ5wRwHl4B0v3w BHXJrlzy5jCAkp84+FaPXAfu++PbFMIGiMKyKj8H69SdP+dDYjh53UMR+6cX5sTkKp+U9e/VEAqEg+bV 394m8a6qVViZpib9hAuX iODX/G8jmAw7oaBAb37HGfZDkt2SErcTcNgbKjWDrMDNz3QxxpmMzSH5bxrBM1svXKonm6tx3xTFyQd0 5RUSY5jfLmSE+HgZ65pb fx3Ni8DP7Dvn/7qKt3afVqTkPHYsg8lnBMYVsRB/Ix5GbLYdYkSWhjx0qQiSgnwmt2vXoPXWARG8UJpz 6JfMCwLj77lc3m0h77PK ZCvgcDmgCIHkYuAmU6fz34+leb71BvmW5sXSPYeuwjgsKFzCzY/9pe/pmja1nbJ56h91kOFqhDFYIQMr FXnQc3xfHDBIgEwzKJTi c+0UtfzwPiAflSqe69gKEF8K4CRoDGLNzq7Yt/bhm7uRLVCPNIOMaZnUBC04oGQ20+QJ98qeVesgw4H5 pOMeqtwAkjV9bDzjbf8z Tcx9sCjtUwE1+43Rsu+bB61MBlfgktqw5Bms9/h3tXxoXWjgBWwIKa82CXcDqp+Z+pL25BIvWOKKVYq9 IIB3XZnUo+84RTkdXrg9 QoXVBXJUCKFy9ZKUFTqhaXuII9qFDLMLAGnF//oMlz48zTJrWqoa6DY/SlNQZtky3XP0bNB3xP+p1rFS dyr8JGidfhheGBcQIyLK jc0DicfoqqTEZ9RT6vZ/rHbUqjXCmjUduqZCcrsfXkKaLxiMY4GYUSIOKMWroWds1/Po6RHffx6L1sbT VCqCPygPcf7L/r9et4ix 6cg3YAxWcXBxnFHA6dl5JngJMUsTWbqd2bCzTc/FSyBgArLAwFkQ/frz0l1+ht69AlkCGDuVBAUyiziK FldsBQZAaNaXKoXMySb2 XSRm5JlgnnhDBSAMNlm2AOdNRhPCOUEJJYyTLvBC1CyovlbljqoZpZSYaRybEF2cD3b2C3XSZvCu2sGC JKzJIrQYJBIgW+Pr5Tvj sx12gJ4/1slA0Y0KDG7AOmQvLNii/ClAuHZYhryXjFU3fNFUAwHV4f8rswPjOus65tcikElrE6zpjqHD mINELoyfRbUOC9PCOlYv W0KWg5zu7bkQhrkzLhBpp8AMnfpnWQXPFqmfqFQzQq2ltqiw50ixN2Nj8+jZCcYxxiyXFyLJzIT7Ww8y I3Zh5JDsv7Ft5LZm6TRa PbnSpw44K6pZkWCoVLL7n2zXS6DofvHoZCEEeU+fJI26M/sUsvCyFVIBEELqPLkVPVo0WWNBklOBpnPI 1xXoKYxWssDAfyYpfl/+ +/FeDt3/y9/MYF0/QaYqIQAsAIdfdq+tTKoLm8MJ36p2VbrPecDMa9zNxTKhXrdRgT6BEJU44Mu/hmz5 slm7qDBq1vBLJDUzDLTQ lZ1Lpz8oaa8koyXh5Dcyi0xAf0FlQKrFoiGM5uOIM3zWGFlHp7+TJ6mfCAXRfimUjDFCFxZcmSlzSWDV VuyEeAIR9hK5jFpo7xuj 6b9m+Lws77OVqR6QOioYG8k+UtciiK6frriKovMTxxPCNL0+twPZcpMZnMVDCQYCPNzReT0Oa12N1MOH Qrt4+y4gwssEWqRRmArn 7zfFT9v+i1+t/KkQ9uf5/WGKBNZgIJGzXFOjFPQyBtq2LWVdleHQNqRBpiNaQ+yheE0YtCl1mkFF/DHf v3Nn4+9avrGMVSi58vmW ABAkAVapWHThoUM/vhPnBk68P/C9vypL6h8m3/lIb0Mypfz1O1zeUKTLnV002pv0nRNTXVyTP/CNghYX BYEoNuImOwWBKDVhhYTC BWtRJPQiEwrPQQOTDtkb4KCVPgJRRZSwqTFHZVqRFQWxAobDGGRANeva3HTINvJJQYQejKGZNKlYVGHg XvyVVLLOWtzn43K4/Y/7 tMAyj0+pOUfHJjEbjWrpIN5Oj98EhN5ndpdXwy2BxJCmTh5Rj2ho16mf6+/sDU4SMmJjaIHEdpD1HSQL U6EZ4gSdBOvgwuVLTOGP xt8uP+c/d4X44akly2yi7B2xWzevcTF1MZEZNkm3ZzLi6ag0wBHb4CrMcc961ciTWbel0pWhwEg3jjjc 5bhshqYfh1xDpn9zO0+v UFq83cWEt1zAgyYvtlRd8vAwQCCR1s1s0xCg19ZPXPz+kkw882o2Zo7ySTGPmZfKH9pgsOn3m3ng8d3A z8NbMJ739wbx2B09MNSf 8KNFew6yyGEGAnc5VHgYyGl87duiFKOGsMnZCo7CylHegWUsS6LfwrWuc+zxmfrjCNBwYiQm96mKUwaO n1xEzl1sWDTaOBdMwqPw zwkMbBj9XvAfDV14sr8RmiI/hUtkeUAyI4A6ywFSVv6b9ZGfVjRSIaqSx7BAgHb9SKF0favAkPkDI5+7 e69ur9+CKuswKMThx4Cn ygtpqTkZLKU8mUs244BaXLkT2+PV+nwavn7ucmpgGFzQKh2DO4jTLqn8x6uPH0d167ZWON9VAM/V6/ZG Dh/zK+hgw7a3eoz6mCKh /w5mTdFUGk4rxhTXB2F++6dS5c+Hyo7/8brNSIpJTfx4+tfTQ5XqTH6nlIIHTiSPZ3LtaT42/Q6eO/G5 fDwVZqzyFk8ImfbZeWjz uPfkZq7BV0TTxbFXyqjMjdIwiGThUfEbLEc+PHVOcWFOmTeO/aJ+bm/vj+FmjvBdRj3CQ5DNsGr5lq/6 lttmx9h83aSjq84P01FF M28DJ8DgyVg8tkYR/Ln/z+g2/3X/tUFaCPdhC7r8hgY2k74yczEM/r/nqZ7OP62/mW8s4Jf40AyVD9go Sd5P7DoTrw0ir9TTXyRC CrAo/e/GiOsXt4wi7Bj8iXo3mHyMniUgWOjO5yHGWaMIRBAUZvZarw6iwHx45dC2yTho0mXcHMVj2lgT B0kMXfAVAa1h6/ElFRUZ PZ89a2lOtiBqqEtCXs9a1A+LfFmqGlNr4goVEz5PJMi8ubLLp+eTFzAUZxJzBCO1g6zuufmHhe1VsU9G b5iLmhHpce3lrNsWAXoM ZAO6IAfHNv4bc4jTCLEXIeEOu08NSFqECUO4+iGy45Ob3FWApCId7uda9pEnhXzvxIp0+PUejI0VCDQ2 76nOJY2IkZnpwPgC8pGh Dyw130+6a6aYKowaWlf8g/tgY269AZopAUkkG5Ph8GNwwA9NXGA0dg1OpNEqkisb5tN7Wmtdq1VOH31K Kq733iIFSnh0WryrTqmx +2B0nMl6Le7/f/jE73iDQCfc2gQdEFElZhuh11UMNshMcbZoXrTiydusSVQEsu/0muPvsvau5KMJdgko +pg5761TaFM+NWhMeHvb g/w2wOyfFjLEWo6t2hi3r+Lefa0PpPCG9ruyWWAfhFtBeoZglZXoEmDCZ9iwHEdNhnbdZvrKZFv5m7bd TojUVsyi8yrGPomo6fkt PHC8wHOvY3Am6Wo9aNdn0p/sxPbnfUK8WdTCe6+lqdZrg1eVisTE6CPVPUJumMHWfTC7WnhQCpGGyBSZ w51DBrPAiS9wbnVFIp/r 6nvPEAx8IWyc5qkWDx7hnzGRDsJupeXOEOvJb4so4b3qgmAu6AlPd4lJr0ydi1asaKW+dn2SEVLZgHOU KJQtx3mm1LpYvhy9JFw6 GjTJlypg/xLKz0MeR1uEe9yh+dr9AUl95N6RnHGKsbYS263tdoiPT3u5y+y0x4GFwdbpWM1jqRoVvPJo yc3O/zovBz193/0oBCI7 xyo0vI2kqJSVXVY2o+8rSLQiElLZYEUaWp3beYqfn6+HjU4IbXYLQn7L/6xSXiQz7faPaBLhwf39qns1 4oNycnMiIyGtXrwqFwqv St39vATUx14tBD/7Ytr1v/359+e3MYIueqMLEK1fLuAVNPjTaM7Urq8eUmkf8+8tEGf3Zn5GkZ1sUWIp I7EWUVyAl9fHUaDlMeaa ixkt4qVBAsLwMjCK+/B0fvwjm3jEL1ZXgPQtZfg02VzoKWnFGri14s5zmRHQeSr/euZOcnDxpyuRvvvv JozdomdH0u3uj5EPkh74 /sVhcUFE/yLANEcuZSl37SsHA6j3+zH3ijFN6L7yHpYJUBKt4cWNsIdgfFpAEEAFOvnYh1ygInKPB4FN x4+p1a/YYGTed2Tl2xa4 +PgSULo3wsGc/5ol9Td2kFswlrFYJwspIAygTheqS9Ei3sr9YF7emBpndUh70DRznKVXcKETl6neWH6P YccLo2ccOaj5bU96IQvf MyARS7qJf9m5eGZb8tRQKgnSdCG3tHhw/f/hdLH72KgIKbs84SNnv5lZE5qz29+aNm+ac7Mn48oJfAMa xWBz/Wl0leUibR63e1NK q5UKzjdgqDdJ0af4+TNEmmNySXS2pAHg97ugc6QPxyAsj8Y88h06lknn9d91YUKmAYqgi5AZo91cvLm6 ftre3H/XNN/C+V1dYu88 1y9gcyZodF7lKt3PXvS2ZPoYWRy22l9HS2dG0vw3c+/v6+vv4Oj0ZTIDgLo2lPf9SsknGcw66lhRytzq TL+jc89zb7NYbCmt3SXM ycYeTrTJiTdjwg6t92YoTb8Hflal3B4/Gji5QDCcPN23dxmoM+1EJK0Diklz6Ce2h0UrIfXWV03HIi8h AKtU0cNndN77Uop7eF3s eP/f4+/pt37rN/OCjhw/3sl813x9vBAXV1SUy6Oxf1/j7+u3Y/kf+0N07d/r7+iDd8UbLvIi2K9KpNkc Wq//y5Uvzg+KRoRZ67Ze KCOSbAzxqlbpnt+5e522owCq8vczr2jM9CXeApB/j0rJBFL366LJD6Hkxoof7tHWHPtLASjak3fOfN5S 62kbYrRs64rQi56wFtXC ff/utv6/f/6f8Gq90ebBKWN0rgF86VuB5xdJwd9sODHMgJ/OwYMyad0L5n/Zsf1+/4j29qAw2ppUDkQJ f1Qry9/ULqFotMzOzIDG vWMVmRyu7jY/Kj5x0EPiSmYT25ReKsPbNm5tqhn/razUQ3lztjgvMBuFWcCw30yU7fKY++snf12/GTz9 ZHN+2dStf+K508yWr6IA jxyqW84+IjFr96h+cUuuARda65qBqoyEqfcxA6Qc2qiEBLKfl3pi4giFSRH5bq92bRcQ1vFa5fxPE0Cn 79RZjpAQbqrVaXlXU60W H5mmfuFlZqJxFLZUJ9rpzB/i2kgU+Jk7d1k2MuZbWbnR2BklRPmCPHk7i3++y40wuepXGc8HgDgQu70o 703LMRIUt40ZN3UUI0cr sac3HEbcLjVsS050ID7tH8HaE/QcO/Ez347UWqaGPN/ZcpJWFZIYy6wGVu9Lwn9pz8EcyGGnffdUTKEC AYmmyoXzHNA4Ml8GXU1x gX/4H9x+wKvMRpKamxr+JN+36+NNgYVel7j1zf0Wi+F7Fk9tvY91xVO8Hs7aXpvKdUuxGt23lNmvc1eo pwKb7fyWYt4hWxcg2/rb wd77tv77uj/sqFRbsVltU2oD4kTiEcj60xDBgKDN4DnJva8BUeUu00btysn4MXbTbUdspsgmfdMqKFXX K3vqxHHLRwSy/AQpBqVS CLSvu2hMwHFr5b8sfFH9/rpLGGe4ya1oe6P9nCu6TL8/ZgKYnC64cszTOSw2XKlhn5umCj+fN9/L2zm8 LYIqkLS3ug/Xb6e97Svh UDm02FLgE8Be9qsE+Ih8z+blbj+0gqbl62YDQ/c0c3Wdis01wa/uyKNoThXQT0p0CvZi8r+Z5SmXf/v2 +ftmHZO9hTuju/fr8MmK t9CgNorsD4Fv6V3xQ2ql6+sQNhLgX7A7GwGaohtYlK2fPzwuCFqWQUmFuhBSe8qwEAwuc9dp0yubCSve WEHnopgOmO44lbe4bUDw MSXdebKWiGWjWiPQm9Jsi871NbfLv0881y1xRp4SOXb0nKNngkQFb50qseFn5X8cK2b+DBNQMrFe/vtU sbt+65eFZhteYYdeuJSY hTZSHSgUdTX6bqkarSE2+TQTwLiTYn73tluhbPZLMESiAtpB4ZirIppZjYhpcutK81fiyK0j8/9yZswA waOgQk3+PBd4+Xx9ob87 FF5p1wjmFXYSOCGNI5GUMJ1FAEL4+xGICkie7z7/4DMPZMGHPJSDtNYBZmNSsKTzUKweZRE0+ZEQkTdO Zu33uWVNX18aZHrhJaRq /z37x/EV+xDqDgF4wimOH+t1eMJzb0AxiBE880vhTqd0hAvKeM6+tbtl08kwpYVZ7924bbWSPgbLTN1e kI1ZaAE6gVTEmhEG46fI 835V8z3+/evWqX//+H2XfPYbd1r1soOnkYftEp5qOgiuI3/fN8mW/qa9ObMKmKLTZ3XIy/FUC9nuJyne /NeRtQBXdVW8zumJIaFY TwZ3uiOsJdKQI/hioPj2deEt9KLC3aOvR/03bAGtqESBU2uEISXC4w3/OflSZ7be4CL7+flJUcIcO+U3 QYgNeRQi8lJXg8pqNV/b kLi9wL71b1kWsBobvWvhuShu9/Z/JpRTuL9Oa00JQ3a8gVLy62jEUjauxehJrIOJ+7UCAB2MVXLhgr1S 8St+HNbwh5Imc2UobNDJ tVo/9/vlCeJpXZMztL1K3F3FSh8z3gOSgajUsnrfaK8kVwXlnYDs0v6swdo6HLKHozVscl/QJRlCs1fn VEwAuXrhw6+WW84XtVtV +6L52t7iKBJRuwFMiYnhEPum9R46U2Ju695wtpg+6Z/eq4ekZ1P8aUvsWu93Igmpc27Yr7TzQxvXZLL+ /uwW95Teh1EcU269XWSy mnuYmp3e016/hT/EG7vCx3+rVr//JivJQGz1wZEFvUpg9xS2LdVbtTKHKgVtAkz04rv8ypFaJIb6w8QY 6oVC4+rd1/ShPkiCdJ87 0mEDzSpezt62BOCFwcrAELgvvRQqfQhgLGMsHH/r84MaadPgv16jLYudComGb2MYEV/lt/tVXCPUbNOA 3Th4/zr4b+PunyMzMTEx IrN+snR5TV69mp/cm7SY2Mk+YbdErJOUCP0Ag/pfMRgZCfrK0R4+U04z2s77l+Ob1m0k//EPDT8uNZds e0doV0y09B//mDQD4+vn 6+UM7LVKooad19i/PGRkZ/IaCUWHV0j2q+HtQTjd2gKY/wsEDb++tcePBAPFCdWo6Br+EhmZkZJgHGY3 VS5iD3Qg6IcZTYoFYk0N 4fvb6WaLm7Dgkc3shmGAe2y4vHr3zmcfdCKh2GunVFdcj3YnoamwMTKXS/gkYLx2to4MZKt8tjOK0vKi PSxaK/f7gH+3GTZrMmDk OVISD0mihC9HJ6oFXvMeUWi3po4ut0s/oE7a9JHZG9J3fbGhAhP32mudW7Px/iadHmjJFPMJoDCqKm2X 5mdv7x5UxT7blfF9ywna wkR4W5KE02QsPUNnHWxgw/Pj4+cR72AoL6Oa6w4A/n1hrXrDNFlbWTDnsNNAz9duBFQCOEaMaTzkeGlA yV/xwOqRyfoonPq9ZUc2 SKXRMMUbPYomzSl8TydZ+/MFnicecGqSZb2th5OfxnhoReNk8KVYp42D2DrGywxu5+fvz3d178VFUA2Q fdu5skT7ZEWf6K11me8I pnpmtdwAAiYmJr1+/LdRhNTaaxwg6EpFEC4CwUi/fgQn7KCyInXSbS1x4hzx9uD8pgIXmzR0yvJ/AwIH 6YnPen4dTpAv38Hfj3bH sefOPTvZDGTRkcP+TGwHjOpC65nEUX5PF49ypT7cqXFAYk7Rmf44zEQ8QtRJE7XdIVhwo1+GHceMNRoP VDoWJ+a5qaLn4mBDOq/X g5Ebxi7oq3MC1lk53pfVN4eg5cxkHgb0rCtYivB7jNkRqKb0c/7wEJQ38uk1zd5dcVoq9crs73LBzkh9 +amA9LJd3MSkUcE7cFbn HWNYtQ2tKwJhtO40PGMTiXm3vO55tMEfojjGYOrdIzRYMnFggGPbXi95CdtpZmcslO8Zt04TLFPiTLq3 2Y5cvG80xKatW1YOQTBR S79psPMnXeGvLlEaYfcOCXCcxrAQh/Goymk78LUfqo5Gm8XKqHiUu1rRloMfWbR5lSqavib98/d56GJ4 PCUlPS+M4bv/efYOHDvn KHaAEla5no1qGIMZLhHpGN4C0UMx2/9dn+MiRABD/7o7WQPL+qGNSoWLFPn3/9/8NDe2uP9fSxbXjOx+ Zku6YlXaeCzb5i3aygpe jqJ1ve9g+d8IEvrWqq7nGKSzdyjTwX8VcSpYY3i4vMSXo4HsJgHxDSTc72MrnhiXfLRpwJAre+S369UW aSdfdp9dp6c0/+lYQjo6 Qx66ta91qMFw0e5abNRLO/1cg+GArG9+fG4IcPHS/ruM/bTVZPqYtlZiaVgdbOEXdYOYrv75vpoN9b+m Uz85RpeYs4MRh6cCheAK dNl3nNPfMhnVR/eXTCoZG7Wwzy7wCm21rGjD6JLqd3KxMab830VB3PgLmAbxj1us26JvM96NjPcuQVn2 gPLV65AkU1x3LQQbeQsT FzaFaix46gqUnhmvqNKfdAH5FW+nh8CT4L/qtmhYcN19lLvaqi/1sMLaCQA3oWSm6pnt+86GEjJZ7YqM m6lmelT0YfDevNGQli3y x/IqW2RqGIExZK2voaOKRqf6jXoDqYW7mx/L4ib+zcc0ow78xO3/mZH9Av/3O22leVoAUy5eeGsEKHSP QzTiLWz2vQ0uHgJZYgCS NDck9LCe9tKMwswuWnZfk/Jh5VP3yMjZjmB1BcMysgjBUoSwzciPeGnnhCscY0AsaNzSgLKJWvg2wqew yvh+yyTHAaDQaGaNlTID nz57/rlbCsqRIC29elAeijsJXt/+yaNGzZ8/qUu6kDiskKh04vbkrjZYWsoJy+Tklxafk2t6Xa/v27F2 6+JfuPXuYDzN/BB/3XnF 0vf858859wb07gdqfwz/hBvLZ0IvGd1Zsulzy5BCwMvYY7Ru9/ihpT8ZTCDXGIaUQtliATRdUABugajO LbK8muy1tk7+PMYX4H6w /8NMx9cOi5Y0CoiySvDzcShql1bmswWYgra8S+qulooPXWTUJwXkEDNm58fVi7+9x0n5zXwzZZ7uDavr tH72cUtCZPpEAlwTStPn dit/Oyc6+wgPz4wJsli458zSxMzknXNQmNz5rKck7GKLyGtFZzm3GXFbTYlKR92ydNLhojS4XpIchbeb 2ggzeJv40fRfiBa97SwM fuHpamenlbovkxkcvVLAVjLTmWYmuXvFKZVsrebYyWC6ti30ezlNz27OYmwYF8bLupXxp80GJbe8rlaM a39au8/Sqb3pgt9putSy 3AQChUFjx/NqL2HByIX1C5g7l1d705KTSRMaj4+fPBw8Z+uYO29x3fkYhVP0WpcWMDMVJ3UJ6UNFBrpn KVCX1MSC57pexq4ct+9s 6mwO6WP68f8tyIiEVe2qUGeJ7g4YjObaRav77w5/gBczydb5pgv0uGIzpvKheQWLR02KeEsyge0Jy4WY +rV7iZ2vI/8iNznPowMH AuqT9HtgFFKuE6t+3Xz/e+zW0ZeuDtAt/J3czew4a3Tyig9qB279gzQcttMGGayRa5FqZAJP14Voq/1U b/m598Yi4Z3CJuYn7e+Y ZYLacpwC37ojgMQZjMFDKbmkc06367HuD6lF+yk359zFQaXqb9SoHreE6jTfj/+6P8oUlR+GSBWEwGCx 86Tkh1bo5s4nlzE+io3l KznrMofwlOm0GfpiHckLR3Cl99pA8uSLe1n833db7/H2tzMz4+/DhetF86K8axlM+7MqzgFt6ATEZ3Mx /xGNMc2twmy1djhEQFEJ dYyX2CmAyXBVn9smz6z30l2p/AkBiYuLkH3/L2UDJ6ywQeBe1O1VcSABi7sVEYGkVgqa//Mcq4Sicu3r SvU2j35/w5upBRUVk7r7 79MOtqJqqGO2+pKO7yXWJD3g6OHKJAAQaXCv2RJ8LP9821yiHk6Au+HCyAPZg0Uw+d/JvwjBMyNmzVme sat2G2l1G0+/b+/cz8iv k89blqfdCDYvJ+eaiGtVK9Sp1txBtZ3Ttntn+thWV5vxVmUxpsnyb/IUL+Tnwf+7evXXzZonESg/F18+ MlwAsj0mQC8MmbZZqKtm oXIIgTAvmFO6/ydfCbsdIFUOe2AGcl4RKnPzR4WLsNAUZLcfY28Tm+SgRB6Ht09dlGsbkSAFD1Elyk90 RRFFU/0Vgq0pPds9fILG p8A10kqAOrgfm+XfAiwbz7oLRo8LOadg8BiJwsCkU28/pbRmIXEVxFii4fxSQ2UsV2rTXCAy+KyCbD8w lQINCuZcmmCNJ9pqCkxp Fd3SypuPgecFNOwPMUHimnH/TvLk4KdC9Bj+dAvFUAsjqyM85p40x2ghFo0cZ6ien1Qme3pApw+FCkiQ iWs6yPyjbsfMQchG1oOK E4CFhV3aGMYh5klVa9WhTejIOPFlqc5ITuCoCxIBmKAutZlHl8Grr7ojT1dDozAA8g6CX893N6RH3nrM Yju1/AICnp+udeooT03R UvDxV/gwYJLJa7lz7r/q9X114zmUE+6VwqJh1K/2EbHwI4vrdBIZtGBQveaZrfws1u95bBmKZnl233pI Uh0UN3uuFnkRUte1IJVG vDcdx/K6wTlgP3zoPutKLby/hQdM69pQQ4W8gfaXgGrvpOHhLg3Lx3FOyNwZV2DmUjL04Sd477e2m161 m7E7l3oDbB5SuU2R9aur aEytwqYLgvBHHtBG91YfcXstz6j05Z0t7WLAgPe6OEBpM3jzln2Z5mqn0YFYR606bq0OeYxYoIVbFuRK zSCTeZmDd0b0funVNIdL SXz2QSFXxgy7Bob/urSu2QKMqMoa+fetW/vk8Nmvk9TZU7p1c0fmKZtHCTr9GIjrpDaeEtaZSMmqbkss JJfUc5m4nuvmdlJjaRFp 8LDy/mR8wW4p+PD5UzxjSddKXroK8QbqG7qJoCNCxUo36HikLgE6npq6qrcnVVh3SAWmYwp47hKxOXxx lcx353/syIOUNs6zRAun j25AcSmWbQcjf8tQvohDXXf6l7c94IZGncXdXHLnXx70B9GVx4nHomh8llt9FhE47Zh0l9+ashli+PTp09m dzKos0pi7M5tQAhwYhIJ flRjAW4q/viaUUDq83KaTm54iR2a2X7+lZDx1okfl3yfjsRS+RB7jh3ru3WcAdQ7Umt1nKa620Wvq8zf cySjhuh701uknvd1mu+g tSExM/M8j47xZ36LQw/gR8/sARKSxwjZNvZax9QdiH2aag/AoTVlLveymCyvZSyOFtoyO5V0bIGSfBmZ ByXpyV27ybXFbyq7zeEB e5Oq2Vm85ln/62zAKV58DxQGPAQdM43bn/220n2JCJg9ss3xql5hceCRs/uVLl5k+QJEMmHCk61+FREV Mcr11Y5ORReQ2ROzh8+7 aIWqrmPu4TKXjmwnHErDC1Pm1Mf8gw6m74ZJm6/9NQYfPNbCIg6nhLzJFkURPTQ4yBubw3QSPOBj7nRU R9/Vxc3KrBw4RcDq4A/v 5s+i0VQc7U+d0L0uYeQs2o0hZMjXFnSgbrI5/f/w81bLFc2zy9iuZ9bEVinvLAKWsSiMzQzTHbvvF555 5a+6cOVqNtk/sogAc4Q8 h9OgcyWaqCTD+WKIwgygDciqBjcjnz4HnHPCZ3qmSmJgWDU65YN5U+jpBPknoIe2Kxd3+TbxAKKBIUqV SRT9+eAPpfuNDpv0LcGV qSYnu2h4d/ZcuxMXBh5zkts+7ju/AAQDqQ29NyCLRKTuP2i01Uu6jtfjcldKxEDP3VEw5HtGbliTidAt bUEUzu1Z/0i7j10VVEoL rYdFC0cmQ84+gg9sw6ny49Qqs9QSUoDcaeRRNqd5oAdtsBkqqxGb2yVSYSAOOZtpKTO5PnePqe5fjE1Z keW5aTumfcHkl94trlfs 75ZlJpCzV6e+DASALuUhjdS9vW+TbMicAsWEQevmOdS80DuZqwUNtyoV3oVyZd8an4cdxBub4NrTFBXy YyYbwym5BwcMqq+blKU0 PJ9ig0ZVuLI8qLWVRfg6FqiPoDTAIRHP06kt1678xywkOCni/9L9kx87cH/j5+aMCp5oor/WKyF6eX/F 9RsSh8+uDw3VhkYD361+ fP3/96I2i29r9nUs5PnYQpY487/CEf6q3o3q5Yh8SavG1vefn6FcNX5cHywTu0uy1kRXLUh5t/bOLi8u SZUsL+WXSqUdOnZkWCb s2rUD+/nwHlNJNXCNYn081lkYC5wXRcQm3S1+fkC4E6M8iLDqbjKgre432htju9f+7K2bB68i6fUCDNU LemKBKyImHh7wg/zosZi JBUvDDceDF0mSA0JIPM5iOp6qgICBfOkLYg+/Ia0sVnIdzYsq3xBnx6ZgcBBkr4jfijh4UQtoKItRNoX kkS3zurdh/+v925uabf3 ev2/HZr9VASPI9x2baZKDNs3okpqsRHVYQ/cMrw3sOSm6FPjRZM7QxLZDyK/+/paJO9287LAx8dhOTc+ 0ZH0x8p95d+/N14qf8Vo rx0uxAJHzkchuJ7HRE8+u+LSLtTwSO6Anqyetv5n0LKuFbHiJqMtiiyGdXxAZoOEBo8Q9GRoB1A33Cxr 67KZ3x5hqSgQ10TQ6v+4 coAzFTQWoNSJXWyh7Ek1WMnATsnFtiZ//5gHor7TXwRFHVLRg6w7ogsCfW6WY5Ef371t304NeAA3N40p KpsWlOH7MLJO9OIb8l94 fkxjDMHt2/5rFa7ab9JV3pko6hIAyirsRHrVxT5+oGLaKwiJ1mvbTdcbbk9viDAQQ/4ED/6mPjLAs++D +n4bKk6D1fcPDaKdYNWL KVTO3DPgrUMA31cDc32NFXkFZClyk1w7Y3lheqiqzc3Pxl6Nk38MdZ1sHfbQyvTegWt2TVYWrU00rLhu 13eHXKXZbgKjtiCf4YiG p2ox/6hUg7DZDi7Q2gnRf5JxW07FXPHjghTeyLWqbBLrS59iYVZOUNF0/3UUJx0Ht4+Xff6iAZwfbVj/ Yef5alKLGEq9nhrnIwRn h0ipxkm1ZnSyT4+swI5vwaPzLjHhxzdT2+nhYh8AkfEysGPv92sAGk+2tSdaQQgGO3emDh6YaQaXwits 209PSDuw/QNOUWCxxcHD I2MP3ZWrWk8BhaCsXkqq9tAzz+cJgMJh/A//Y+FgVz5G0lgYKhrBfsRkzpDXJHUtRSulGVhOkkEgAw4Y UGrDCwmAwpQassDAYTKk CQzaMWsIxaIaSm9BOYmOAuwTcfKhgqTVTRMeGXorLKxYirKzSo6FAOxSRmsLzxBvikPPILQeWYmcSBrW neWiJg4TDOoPJklMvePy uvGFNERqAHnoPWzFdlJyLg9GNUmBY+ry0lJvQiCPxOd/++NWcxpef6d2bEnc0n85j4+joKBKJ+vfvbyH Twz6nFt/o4u76hFHL7fl 4T3jXdmDfCeW5Elr51sb4lig339wf9h1iPf3WUHVh101EmsUJAiGtAfLm2DMR4884uuugj2EXKV9uq0/ C6VIs9fgmYgyNw51EQ5+ 5auOxRNrEAXoUhfru7e3eYaInkmg/BIlg60Rpebl+qR4+fPj/zOjSpcuuXbs+xo0Zft0cSZCJqJy/7j1 79vzf//4pcD6QXQGUZSU VUFsfJ4hegyGnXW3MdUgYHR2wKpXAB9MZ6zYcB9TIa1461g/+uX0awhVFi621Wmcd1gVPQV+ePCkk/fL tmfEMmk4tUUyNzEDCtUb 1qYyAYvMkIB7hCd9CONHH6aNSe5wNsl3OX5rAmWpEklGFv1gOGFa299Bfu6H5/CdmPYmX0j4Ov0ZLGXS gxx9/7XnEy92l+NM4Y8Y M/znMRAd5JLGO4RCaRlye+nJazNPS9vuzLUICwZQwdsO12lKeEVW+TnRUOQw06eH5bgx5774dK9MiDF2 uZl3sgyeVCaVszEOXH77 uMbsXwvfy34pIo4b+6aQDpxzxTdwMqu35+ael58YNmjcxVkdRSu2fSMBS3Lmv1Ql4HDrxFc/40759S0C //v179+8lPUXnUtr200t GjGhI20ddCre5qzYjbUr4+L0y9ve8mjwUpXU/qQiYpPUr0oF06hVSLwjD18HTRm+7af51ZeZbbOPqF99 JZGuVTFuZjyv8vH/x4MG KRMFy7vGPTjdyX5oUaZbzbdUJsAoJw7u7dCyjAo4Vxo8Ayv9i8xwOISKXv9jrJkD108/z2/bPtUpn57x 33ws/MguyJ8y970PTAzd /ZEaz4cu8P/Pbz58/WrC5extuGO1niZjMjBAytHwynLXZlrN54DxsHweqaEc5yhSMLjeh5PKlTUpcYKf YWKtWrQYOHBgZGWkeumj CGi8jSNGlz5NTfYgz/OtcqSUsHEOPnJkOsuHe2zj4daPVERADBEqDIRPzn+mSuCUcgeQXXEafWsMY7VF B09FoX5gfK3Oi9TjqKN1 9MPU1Xw47lWo39iPZejDjy0ax8tvRXKzWUJPPffi+55F6lmf8l6xiLVRz3LpiQbKdLxHmqWrdzaAXp/P yNImUMCWg8umS7WdYncD Jo6wPwTBOHMe9tbExJETYYF9dwkTzBZaSvJ18Mz5w/Qqp8lYtA9bIVpIVC094wxRpwkwfwZCT0/qVVsW hQnnY0Mg4LiailOd1zQe f6hFboDsTrc9sCYm5+/nkI0DyZsJb8BpmfIOhOVSCZWrfMn9Aza7Hy2IL50GQoqUwrPBb515kdoRkXKR G1TQ6UPHWi9TfzuOz6o+ gl4ah9m0xYdEKdQtOumXebx//xhumOUwYORNdVn6VcDs3pu8WlLk/++82BKjIViyL1fCFY5PJXbOZHpa SG067f91Ff4TmTFxnsAu ox9k1TpBigF2/v/aS2pF434cQ0U+I5wAYa1Jrpf04959MOc9z2FzatJ8PMCKCJj0NZRzZEBt+achkMoF XLCqVIwmfKiWlc6dGJD7 H8YWyh7LScFnEqNZNH6jL9+PBi37r1g73aiUmhbiy30094zXRtZNCm+yZzOdQTUhOSdLQPWwcXy88+Yn zpqiCsjNvYfEKzrQbHx8 HHNq8idvzktDhDrLtHI0odhdCD8ubB2gdrxhRPD6tesU6WLpk2Rzz+YtUoUKF/CK30GYlOFLE46EoZtR CE6aPzU7x9PUwG0Agq9n 39JyCUgMj4WduQuSZhLlGtK/h5Y2VIpiOfFzHYc6s5rv/+uqrnJycQhJ5+fJlMbNDCFnkCACxsbGPHz8 9Yx4qoxKt5L4XnJZj1du PcNasWbwkj4+NLqOX4cp2+vqacjRhNYUaNWoAAG8+U6VqIekEaJNTWfFzm1GyzeYAsGdk3PAqGMDr8ql 169GjB+5ujTCPj593YYn PH/4a3zSzF6840967g+/fSPz1MBYZgcGkll1SMDCMXKYrkafGGXWAgf8hfYiaGk916zykmMg6WG6qRm7 oMxt8MnrvGqIYoR428Pm rrHqqiJfxB77rYL7YZxKvCITax274d4BobhKJZuSp860/++45hxRZGUiWOXAyVjniUR0a5edNNaleT74 YX1XbFMNm0Ge7v+a1mp2 j7hjPs0YsDc35UzXe+aSe1A8L0tvKTAm9OFW3ctBH2+Ru2HeaYhQNnGm1GxRJNeBZBn26mlOzYkms7MU yOnw9tth6SvB09P/3ily sHSVeoMmw2ttgpISH6inxVQbFQ35yAWfyFIG5E3R1JXUzDZLyufO0RDnglB/TeobQYLjuuu3G5gERc2r EJQuu+s9H4W+ImTNnAgB AOn9wauINlud3Oa8j6aCv3jp+avHaj8WZVWKCar7h7e5g1Nlz4yi61nSlhaC/PSZTBHqyrQvRO5h2p7n +49atW/nNAMw7zEyNd8W CuyyrWnXZNcPTMuB4rXaQ76/Lad1Xmusi2V8XynthSfB0t0gD/Qnzek8RiC04l+uQGIKBz2vcfPze5ky DiXXT8He2grJi140UuQi YN3d1uIWtCz7AVvXg6cH54vmMJwi0ed6qJsC5xnn8oaNLKFPGd/zql8a948+/FYlEPj4+el0H8gaB94f tG2+syc/z58+vXLlichM HgJ9++klb2zr0ale+/x3t225vfZx8LhtRrnf8+/zaFsNpFW2gPOwWsKqej5V3Ev2oaDw9qytuwhUbBh2 g1zmWcJJMX0pe9Mf7uNR /uLXEqN316x7+/wByfsDjImngRn5djsQpirMHHn8p1q79jsLQBJ9HLsGAjMmbRFujhrOmWrxjYQLDAxT FmVm0O41qjhPHxkVfmBO u3bu//vrr/ILsvF0CjoLk2xxF3WeyLmYXZeEmlxoahJPf8bfpOzHAZqrrNNYI4SiEOV9OlSUmL06qyg6 cDYOGoy49NNDKKe3qk77 dsLbCfGpwC+yCcLfMHw25dUNw8C/WtnLqByn2IjNQvPlAMjxPxRGrpZmVs6IMCaBVrnVycJcchTLMIZy OAahMGhFjqUwPx8TVKvF CwmAwpYb/A55RS/w5k4HCEVIRAWlBEjPdYuPA></span></span></span>
</div><span style=font-size:12px><span style=font-family:[place],Helvetica,sans- serif>
<strong>Patient Name: </strong><span class=& quot;clinicalNoteMacroWysiwyg id=[id number] macroname=PatientNam e spantype=macro title=#PatientName>SHANELL MENDEZ</span>& lt;br><strong>MRN: </strong><span class=clinicalNoteMacroWysiwyg" id=[id number] macroname=PatientMRN spantype=macro title=#PatientMRN>[id number]</span>
<strong>Date of : </strong><span class=clinicalNoteMacroWysiwyg id=[id number]" macroname=PatientDateOfBirth spantype=macro title=#PatientDateOf >1985</span>
<strong>Date of Service: </strong><span class=clinicalNoteMacroWysiwyg id=[id number] macrona me=EffectiveDate spantype=macro title=#EffectiveDate>06/30/20 25</span></span></span>
<strong>Attending Physician: & nbsp;</strong><span class=clinicalNoteMacroWysiwyg id=[id number] macroname=AttendingPhysician spantype=macro title=#Attending Physician>Torsten Mederos (Medical Oncology)</span>
<strong>Referring Omayra kang:</strong> <span class=clinicalNoteMacroWysiwyg id=[id number] macroname=ReferringPhysician spantype=macro title=#Referr ingPhysician>Telma You MD</span>

<div style=text-align:center><span style=font-size:12px><span style=font-family:[place],Helvetica,sans- serif><strong>INITIAL HEMATOLOGY/MEDICAL ONCOLOGY CONSULTATION</strong ></span></span>

</div><span style=font-size:12px"><span style=font-family:[place],Helvetica,sans-serif><span style=font- size:12px><span style=font-family:[place],Helvetica,sans-serif></span& gt;</span><span class=clinicalNoteSectionVisible id=[id number] internalbreaksection=false originalname=Reason for Visit [...] brought her to the local ER in [facility]. Ultrasound Doppler showed nonocclusive DVT [...] the thoracic aorta.
</li> <li>Patient was transferred[facility] via med[facility] helicopter she required pressors [...] with repeat labs.
</li></ol>
<span style=font- size:12px><span style=font-family:[place],Helvetica,sans-serif><span class=clinicalNoteSectionVisible id=[id number] internalbreaksection=false originalname=Advanced Care Planning recog [...] suppressempty=false>Pain Plan on Today's Visit< /span>
<span [facility]Not[facility] Cent[facility]roWysiwyg id=[id number] macroname=PatientPainCarePlan parameters=LookBackDays:0,ShowComments:Yes ,ValueIfNull:No pain plan indicated for today spantype=macro title=#PatientP ainCarePlan(LookBackDays:0,ShowComments:Yes,ValueIfNull:No pain plan indicated for today's visit)>No pain plan indicated for today's visit</span><span style=font-size:12px><span style=font-family:[place],Helvetica,sans-serif>
<span style=font- size:12px><span style=font-family:[place],Helvetica,sans-serif"><span style=font-size:12px><span style=font-family:[place],Helvetica,sans- serif><span style=font-size:12px><span style=font-family:Ar ial,Helvetica,sans-serif><span style=font-family:[place]><span class=&qu ot;clinicalNoteSectionVisible id=[id number] internalbreaksection="false originalname=Smoking Status recognizeconcepts=true spantype="section suppressempty=true>Smoking Status</span>
Smoking Status: <span class=clinicalNoteMacroWysiwyg id=[id number] macroname=PatientSmokingStatus parameters=ValueIfNull:Not recorded. spantype="macro title=#PatientSmokingStatus(ValueIfNull:Not recorded.)>Smoking Tobacco : Never smoker; Smokeless Tobacco : Never used smokeless tobacco; Vaping : Never vaped</span></span></span></span></span></span></span></span></spa n></span>

<span style=font-size:12px><span style=&q uot;font-family:[place],Helvetica,sans-serif><span style=font-size:12px>&lt ;span style=font-family:[place],Helvetica,sans-serif><span class=clinicalNoteS ectionVisible id=[id number] internalbreaksection=false o riginalname=History of Present Illness recognizeconcepts=true spantype=&quot ;section suppressempty=false>History of Present Illness</span></span&g t;</span></span></span>
<span style=font-size:12px><span style=font-family:[place],Helvetica,sans-serif><ol> <li>Patient reported that she has a Mirena [...] brought her to the local ER in [facility]. &nbsp ;Ultrasound Doppler showed nonocclusive [...] thoracic aorta.
</li> <li>Patient was transferred to [facility] via medevac helicopter she required pressors [...] the History of Present Illness.
<span style=font-size:12px><span style=font-family:[place],Helvetica,sans-serif"><span class=clinicalNoteSectionVisible id=[id number] internalbreaksection=false originalname=Past Medical History recognizeconcep ts=true spantype=section suppressempty=false>Past Medical and Surgical History</span></span></span>
<span style=font-size:12px><span style=font-family:[place],Helvetica,sans-serif>She does not smoke cigarettes. She uses a Mirena IUD and norethindrone as well as oral contraceptive pills to treat endometriosis.</span></span>
Also past medical history significant for asthma.
Since hospital discharge admission patient has stopped eating oral contraceptive pills she still has the Mirena coil.

<span style=font-size:12px><span style=font-family:[place],Helvetica,sans-serif><span class=clinicalNoteSectionVisible id=[id number] internalbreaksection=false originalname=Current Medications recognize concepts=true spantype=section suppressempty=false>Current Me dications</span>
<span class=clinicalNoteMacroWysiwyg id=macro_1 [id number] macroname=CurrentMedicationsTable spantype=macro title =#CurrentMedicationsTable><table border=1 style=width:100%> <tbody> [...] Tablet</td> <td width=40%>06/30/2025</td> </tr> </tbody></table></span></span></span>
<span style=font-size:12px><span style=font-family:[place],Helvetica,sans-serif><span class=clinicalNoteSectionVisible id=[id number] internalbreak section=false originalname=Allergies recognizeconcepts=true span type=section suppressempty=false>Allergies</span>
<span class=clinicalNoteMacroWysiwyg id=[id number] macroname=A llergyTable spantype=macro title=#AllergyTable>No known medication allergies</span></span></span>
<span style=font-size:12px><span style=font-family:[place],Helvetica,sans-serif><span class=clinica lNoteSectionVisible id=[id number] internalbreaksection=false& quot; originalname=Family History recognizeconcepts=true spantype=section suppressempty=false>Family History</span></span></span>&l t;br>Family/Hematologic History: Her sister had 6 miscarriages but no episodes of VTE. Her father and multiple members of his family have had heart attacks. She does not have any children.
Patient was one of her cousins was found to have factor V Leiden.
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
Patient works for a [employer].
She does not smoke

<span style=font-size:12px><span style=&q uot;font-family:[place],Helvetica,sans-serif><span class=clinicalNoteSectionVisible" id=[id number] internalbreaksection=false originalname="Vital Signs and Pain Scale recognizeconcepts=true spantype=section suppressempty=false>Vital Signs</span>
<span class=clinicalNoteMacroWysiwyg id=[id number] macroname=PatientVitalSigns parameters=LookBackDays:1 spantype=macro title=#PatientVitalSigns(Look BackDays:1)>Blood pressure: 120/82, Pulse: 77, Temperature: 97.1 F, Respirations: 16, O2 sat: 100%, Pain Scale: 0, Height: 67.5 in, Weight: 220.4 lb, BSA: 2.12, BMI: 34.01 kg/m2</span></span></span>
<span style=font- size:12px><span style="font-family:[place],Helvetica,sans-serif><span style=font-size:12px><span style=font-family:[place],Helvetica,sans-serif>Immunizations: <span class=c linicalNoteMagabeoWysiwyg id=[id number] macroname=Immunizations&qu ot; parameters=ValueIfNull:Not recorded. spantype=macro title=#Immuniz ations(ValueIfNull:Not recorded.)>Covid-19 vaccine (Moderna) (06/30/2025), Patient declined/rejected</span>
<span class=clinicalNoteMacroWysiwyg id=[id number] macroname=PatientOxygenSat parameters=Label:Oxygen Sats,LookBackDays:All spantype=macro title=#PatientOxygenSat(Label:Oxygen Sats,LookBackDays:All)>Oxygen Sats 100%</span></span></span></span></span>
<span class=clinicalNoteSectionVisible id=[id number]" internalbreaksection=false originalname=Performance Status recognizeco ncepts=true spantype=section suppressempty=true>Performance Status ECOG or Karnofsky</span>
ECOG: <span class=clinicalNotUniversity [facility] CenterJamieysiwyg" id=[id number] macroname=ECOGStatus parameters=ValueIfNull:Not recorded. spantype=macro title=#ECOGStatus(ValueIfNull:Not recorded.)>Not recorded.</span>
Karnofsky: <span class=clinicalNotUniversity [facility]als Ahu[facility] Medical Centercrysiwyg id=[id number] macroname=KarnofskyStatus parameters=&q uot;ValueIfNull:Not recorded spantype=macro title=#KarnofskyStatus(ValueIfNu [...] <td>
</td> <td>
</td> </tr> </tbody></table></span>
<span class=clinicalNoteMacryswaverly health center id=[id number] macronam e=RecentLabResultsTable parameters=OptionalFlowsheetCategory:Chemistries,Label:Chemistries spantype=macro title=#RecentLabResultsTable(OptionalFlowsheetCatego ry:Chemistries,Label:Chemistries)></span>
<span class=clinicalNoteM acryswaverly [facility] center id=[id number] macroname=RecentLabResultsTable parameters=OptionalFlowsheetCategory:Tumor Markers,Label:Tumor Markers spantype=macro title=#RecentLabResultsTable(OptionalFlowsheetCategory:Tumor Markers,Label:Tumor Markers)></span>
<span class=clinicalNoteMacryswaverly health center id=[id number] macroname=RecentLabResultsTable parameters=OptionalFlowsheetCategory:Anemia Labs,Label:Anemia Results spantype=macro title=#RecentLabResultsTable(OptionalFlowsheetCategory:Anemia Labs,Label:Anemia Results)></span></span></span>

<span class=clinicalNoteSectionVisible id=[id number] internalbreaksection=false originalname=Surveys/Consents/Other Discussions recognizeconcepts=true spantype=section" suppressempty=true>Surveys/Consents/Other Discussions</span>
<br& gt;
<hr><span style=font-size:12px><span style=font-family :[place],Helvetica,sans-serif>
Thank you for allowing me to see [...]
--- OUTSIDE RECORDS SUMMARY | 2025-09-07 14:15 | XMS_ITS | CCD ---
Author Name Interface, [id number] lity Address [address] [facility] [address] [address] Organization [facility] Address [address] [facility] [address] [address] Care Team Providers Care Pbx Operator Name Role Phone Torsten Morfin Unavailable Unavailable [...] Ordered By Specimen Source Lab Address 08/29 [facility] [place] See die attacher d 06/30 CBC w/ auto diff Patricia # (ANC) K/uL 1.6 6.6 4.4 FINAL Torsten Gatito alcaraz [facility] , [address] [place] [id number] 0 06/30 CBC w/ auto diff IG % % 0.0 0.5 0.4 FINAL Torsten Gatito alcaraz [facility] , [address] [place] [id number] 0 06/30 CBC w/ auto diff MO # K/uL 0.2 1.3 0.6 FINAL Torsten Gatito [place] [facility] , [address] [place] [id number] 0 06/30 CBC w/ auto diff MCV fL 80.0 104.0 87.7 FINAL Torsten Gatito [place] [facility] , [address] [place] [id number] 0 06/30 CBC w/ auto diff IG # K/uL 0.0 0.03 0.03 FINAL Torsten Gatito [place] [facility] , [address] [place] [id number] 0 06/30 CBC w/ auto diff MO % % 6.0 15.0 7.4 FINAL Torsten Gatito [place] [facility] , [address] [place] [id number] 0 06/30 CBC w/ auto diff EO # K/uL 0.0 0.6 0.1 FINAL Torsten Gatito [place] [facility] , [address] [place] [id number] 0 06/30 CBC w/ auto diff EO % % 0.0 7.0 1.4 FINAL Torsten Mederos [place] [facility] , [address] [place] [id number] 0 06/30 CBC w/ auto diff RBC M/uL 3.9 5.1 4.39 FINAL Torsten Meedros [place] [facility] , [address] [place] [id number] 0 06/30 CBC w/ auto diff MPV fL 9.5 13.4 9.3 Low FINAL Torsten Mederos [place] [facility] , [address] [place] [id number] 0 06/30 CBC w/ auto diff BA % % 0.0 2.0 0.4 FINAL Torsten Mederos [place] [facility] , [address] [place] [id number] 0 06/30 CBC w/ auto diff BA # K/uL 0.0 0.2 0.0 FINAL Torsten Mederos [place] [facility] , [address] [place] [id number] 0 06/30 CBC w/ auto diff HGB g/dL 11.3 15.2 12.2 FINAL Torsten Gatito [place] [facility] , [address] [place] [id number] 0 06/30 CBC w/ auto diff MCHC g/dL 30.0 35.0 31.7 FINAL Torsten Gatito [place] [facility] , [address] [place] [id number] 0 06/30 CBC w/ auto diff HCT % 35.0 48.0 38.5 FINAL Torsten Mederos [place] [facility] , [address] [place] [id number] 0 06/30 CBC w/ auto diff WBC K/uL 3.0 8.9 7.9 FINAL Torstne Mederos [place] [facility] , [address] [place] [id number] 0 06/30 CBC w/ auto diff PLT K/uL 113.0 364.0 512 High FINAL Torsten Mederos [place] [facility] , [address] [place] [id number] 0 06/30 CBC w/ auto diff RDW % 11.4 16.1 13.20 FINAL Torsten Mederos [place] [facility] , [address] [place] [id number] 0 06/30 CBC w/ auto diff LY % % 14.0 41.0 35.0 FINAL Torsten Mederos [place] [facility] , [address] [place] [id number] 0 06/30 CBC w/ auto diff LY # K/uL 0.4 3.6 2.8 FINAL Torsten Mederos [place] [facility] , [address] [place] [id number] 0 06/30 CBC w/ auto diff MCH pg 26.0 35.0 27.8 FINAL Torsten Mederos [place] [facility] , [address] [place] [id number] 0 06/30 CBC w/ auto diff NRBC % #/100W BC 0.0 0.2 0.0 FINAL Torsten Mederos [place] [facility] , [address] [place] [id number] 0 06/30 CBC w/ auto diff Patricia % % 43.0 74.0 55.4 FINAL Torsten Mederos [place] [facility] , [address] [place] [id number] 0 06/30 CMP ALT/S GPT U/L 0.0 34.0 32 FINAL Torsten Mederos * [place] [facility] [place] [facility] , [address] [facility] [id number] 0 06/30 CMP Gluco se mg/dL 74.0 100.0 74 FINAL Torsten Mederos * [facility] , [address] [facility] [id number] 0 06/30 CMP Total prote in g/dL 6.3 8.2 6.7 FINAL Torsten Mederos * [facility] , [address] [facility] [id number] 0 06/30 CMP AST/S GOT U/L 14.0 36.0 62 High FINAL Torsten Mederos * [facility] , [address] [facility] [id number] 0 06/30 CMP Bilir ubin, total mg/dL 0.2 1.3 0.2 FINAL Torsten Mederos * [facility] , [address] [facility] [id number] 0 06/30 CMP Sodiu m mmol/L 137.0 145.0 137 FINAL Torsten Mederos * [facility] , [address] [facility] [id number] 0 06/30 CMP Alkal ine phosp hatas e U/L 36.0 125.0 60 FINAL Torsten Mederos * [facility] , [address] [facility] [id number] 0 06/30 CMP Calci um mg/dL 8.4 10.2 8.7 FINAL Torsten Mederos * [facility] , [address] [facility] [id number] 0 06/30 CMP GFR estim ate ml/min /1.73m ^2 94.3 GFR is calculate d using the CKD-EPI equation. FINAL Torsten Mederos * [facility] , [facility] [address] [id number] 0 06/30 CMP CO2 mmol/L 22.0 30.0 [...] hour stability window. FINAL Torsten Mederos * [facility] , [facility] [address] [id number] 0 06/30 CMP Chlor simone mmol/L 96.0 107.0 104 FINAL Torsten Mederos * [facility] , [facility] [address] [id number] 0 06/30 CMP BUN mg/dL 7.0 17.0 8.0 FINAL Torsten Mederos * [facility] , [facility] [address] [id number] 0 06/30 CMP Creat inine mg/dL 0.66 1.25 0.80 FINAL Torsten Mederos * [facility] , [address] [facility] [address] [id number] 0 06/30 CMP Album in g/dL 3.5 5.0 3.8 FINAL Torsten Mederos * [facility] , [facility] [address] [id number] 0 06/30 CMP Potas sium mmol/L 3.5 5.1 4.1 FINAL Torsten Mederos * [facility] , [facility] [address] [id number] 0 06/30 Lupus antic oagul ant panel DRVVT SCREE N sec 40 FINAL Torsten [employer], [facility] [address] [place] [id number] 4 06/30 Lupus antic oagul ant panel PTT-L A SCREE N sec 32 FINAL Torsten Gatito * MICAELA, [facility] [address] [place] [id number] 4 06/30 Lupus antic oagul ant panel LUPUS ANTIC OAGUL ANT SEE NOTE A Lupus Anticoagu lant is not detected. For more informati on on this test, go to:http:/ /educatio nAltair Prep/faq/ [id number](T his link is being provided for informati onal/educ ational purposes only.)--- --------- --------- --------- --------- --------- --------T his interpret ation is based on thefollow ing test results: FINAL Torsten Gatito [employer], [facility] [address] [place] [id number] 4 06/30 Prote in S activ ity [...] thromboti c risk. FINAL Torsten Gatito HINOJOSA, [facility] [address] [place] [id number] 4 06/30 Antit hromb in III activ [...] with an increased thromboti c risk. FINAL [facility] * [facility], [facility] [address] [facility] [id number] 4 08/29 PT INR panel INR 0.8 1.2 1.3% High In patients with lupus anticoagu lant or other anti-phos pholipid antibodie s, theINR may be falsely elevated. For such patients, it is generally preferabl e tomonitor chromogen ic factor X activity, which is not affected by theseanti bodies.Th is test should not be performed on patients with hematocri t <20% or >55% [facility] PT INR panel PT INR lab resul t note This specime n was collect ed shelly rojas. FINAL [facility] , [address] [facility] [id number] 0 06/30 CARDI OLIPI N AB (IGM) MPL-U/ mL <2.0 Value Interpret ation---- - --------- -----< 20.0 Antibody not detected> or = 20.0 Antibody detectedT he antiphosp holipid antibody syndrome (APS) is aclinical -patholog ic correlati on that includes aclinical event (e.g. arterial or venous thrombosi s,pregnan cy morbidity ) and persisten t positivea ntiphosph olipid antibodie s (IgM, IgG Cardiolip in oml9DWK antibodie s greater than the 99th percentil [...] l informati on, please refer tohttp:// education .BubbleGab/faq/F AQ109(Thi s link is being provided for informati onal/educ ational purposes only.) FINAL Torsten Mederos [employer], [employer] [place] [address] [facility] [id number] 4 06/30 CARDI OLIPI N AB (IGG) GPL-U/ mL <2.0 Value Interpret ation---- - --------- -----< 20.0 Antibody not detected> or = 20.0 Antibody detected FINAL Torsten Mederos [employer] [address] [facility] [id number] 4 06/30 Beta 2 glyco prote in [...] olipid antibodie s (IgM, IgG Cardiolip in shs4EUE antibodie s greater than the 99th percentil [...] additiona l informati on, please refer tohttp:// Zebtab/faq/F AQ109(Thi s link is being provided for informati onal/educ ational purposes only.) FINAL Torsten Mederos * MICAELA [facility] [address] [facility] [id number] 4 06/30 Beta 2 glyco prote in [...] olipid antibodie s (IgM, IgG Cardiolip in pil1YEA antibodie s greater than the 99th percentil [...] l informati on, please refer tohttp:// education KlikkaPromo/faq/F AQ109(Thi s link is being provided for informati onal/educ ational purposes only.) FINAL Torsten Mederos * MICAELA [facility] [place] [address] [facility] [place] [id number] 4 06/30 Beta 2 glyco prote in [...] olipid antibodie s (IgM, IgG Cardiolip in akl7SUG antibodie s greater than the 99th percentil [...] l informati on, please refer tohttp:// education .BubbleGab/faq/F AQ109(Thi s link is being provided for informati onal/educ ational purposes only.) FINAL Torsten Mederos * Micaela [facility] [place] [address] [facility] [place] [id number] 4 06/30 Prote in C activ ity [...] FINAL Torsten Mederos * [facility], [facility] [address] [facility] [id number] 4 Medications Date Name Route Dose Frequency [...] Onc Consult <html><head></head><body><div style=text-align:center><span style=font- size:9px></span><span style=font-size:12px><span style=font-family:Woodbridge,Helvetica,sans-serif><span class=clinicalNote MacroWysiwyg id=[id number] macroname=PracticeLetterhead spa ntype=macro title=#PracticeLetterhead><img src=data:image/png;ba se64,kIPRFv4RLtxOJQWTKVtDWoKSBBPCYQIjUOMLBKB6Te+WQMHHBTHXGKTLHF5WYVPFhTVCFu3aIXA FaleTUIDQJLk2J70gCnY cz9NzZffoyWPVPINPJC96yJBdi4B7DLAaB4xyLYImy75bXPxwNXXIWG6uSBRDEXylEIcmQTR2QgWaxbt eYUDpIj7qSAp2nE0deNN 9LFE4jPbarwn3XDVkZH3jRVelouwrWKPxPiGwlZr6hID8qe6lATFpOxMfVH7XUECpwdJuLw4hBVCfEPA wBdsuGXS0CFP2FYC9WSE uBNRdMjI7HzZlZIUiOeLmKfRlEIBrRWTuUCVbLjQ7ouOsTlOFJmV9vSwuexrgOCI8Yyp3pAG4Ag54c8s fhtQof5VnYxT0TMjeFXZ rYrQozbRjBKS3koQmwN5jepEaKbU5uhTiQyLqi2XmlVE1sM4pXFXaXrjgPi96vW1mJdX1dEpuoht6fMW 6Jjy2dBS8Ee0skf2kZS4 aPA1ia15vsTPcHrSjVO9tVTufgX6wSjGkZEPnwPVuVq6ndTHokL1uhjzyVKUwPEeajHOmeBScBP4cCsG uiH2zdcK0iQckrN4sfE9 jWUVpqSLsGa0qchJmQJJkBaMjG93oD5Zed5Wmy5lhlZ3oQqJmFlM9yZlrswd0yFAQIS0yzTM9eAdsZ96 dPoFxx5ZuTyOxiI26OZR bAK2hV61aGfUddW6wwzV2i7MKbtQ6Dgi5nWR3Cu5ivj8nZS6eNE8mw33elZDsOjOoVV4tFVesMT6YIKN ewRAjJIJ6QC50CcFlwU3 zViPeMRO8q3SNi56gYOCGBN2oERRZlR35y3Dfd2CxGfFjEWFpOQOobX15g3EuBCLlgR9bXzNoQNP7SNE meTL7IpMtYwDvMSNkIbd GMMT2Dph5VxLjMSY9GHNgTCzmmEfZa7IuLatNMMCgQUTyREGfJPMeKYW3EGIkRcNdAYP2IgMwNiC4gMF 3HUG7DAAlwQNFNGKwEEM gDANrELRxEPO3HTOwEbCcZYR8VgSaStKsFqduu7JgSGR6BueiBBuiA8TmKbOkmCpvgD3gjF3hEaBwhE8 gFQ2lQF2tIxFbqA1yIS4 9CN4duMShH3WFAS3sqO1zWqgbJBh7XFFdLrGtZR0qGQFaRSV7UbwaRMu3XI57CtU4MNJuYcHwVANxRKy ebP4GQfHgJ2DkBL99PAQ 4XamltO8hfCM6MNSjJtZwIBDuByewOg58CAG4AVw2VxwkZAVqInJcT9B7EVIhSgQ8lXNNPQsDauoxvX4 tsXYaE8NtPE91XHW5Syk uwS7ltNF8GZQgTbQqUYWjAeqyMh70LDP7EDt8TnlfXWFsRwKbG1F6VRZwOi7zFOCbp8Wzh1fofRwPz5M 7hPRhpCBiP9GbcL9rlk1 gPHJkZjpCYWc+EZdiZLT3hJs+sQ2aJkToYYn3FuR8K3O3BLFcINIvWBO7YAEbCapUOWQ2NoHJQtXvVRx ilsRhXewlHtZ0F9IbMuf CYWc+VWiwkOxdjW1gqZ2cBrMlJ8SlIW96JF5mGQC3o9VpLvO1rQ9jVA41THuytF7qmM5pUNLbFkcIETN +MVjnXMX4dHgpq6LJwiX 3NTW9nR6lZARcmkFjeTUaThFkbBP1dBwrlsT6LJ3sKOwEKWX3sTOhdMvqIasqZzErDRH5FFD7GYFnMEQ sCC44STd1HXCeZSipPVB nAMU1SeTlv6QFguB4l4gxit0qAfOnJg3hLG8eK5BcWKioUGzvQN5hQvzvKXIzo9MAdzN9t06weXtwdqR MK7EhjX0kXBCbZoEkRAx dvF0pvN4oRCWrSoGxYV2pW7gxuA8ytAhaLe5oYY0zLAS8S3XgPfP5K5ujxD4LXyvkb5Pxrxx+IDwvcmR fTcKcr5EktKC9lQ4lZiN 2W9JjTmaVYJV+OVqmiKt9eBXyBNIgUnK6P9fhBAQaGSEaLP3hADTuBp3+kmZ2PNCFQpHNFREGiOnxgXG gFEcXwN/K+tY2nRQ7HHE obsWDOx/nOIWlyKyvSMBhWbmbrp6QIWfnSQPlMQzeL4eg/AO7gd7ZfqyaUsYCkdU/es14g14Qxd9+nXn zZpZgWRYwGAymNEAghEq 5QSyZWsKenTKgHTuVmSTVaFVnDKpvRIaqZFUUobMYA0HEuTdtyiTxSBTCwXHnGLjifS1tLqT+N5GQyCd /bfnHbVxX5nBMscHHz9n UFB4bvy89VTlmxOFOy/cmlP6iIB8PJrYk4ptWAc9h7cm5GURhQLQKIvMMdlBjajASud8j/zBpUmBgYEm NOQP1uVyT65z5e+futCm WW5V3YBm0OiHZ3rCBbf1NTUWrLDZRlMlUdEbV3otUMardHpk2vLESKdmh8jACDVqnRj3G59XJEk44I9U EzhlMyd8n41cgPrUtxkR Y6hGHNFTHCi9KPaNbABcYqMQGi+LEEumob7+Z+gLKIA8vEVsQAniPn6Xu+rJkO0Zdf0OBd1lb+8ef/Kr P7FfKvYOmhzZZSLRePYU LBKUohme42/oLf/5BkMSEiRPH//ADyJIwX0rOMatvonu+9bpXj+6zcJedDn5b78F6PjJH29UAAPHCjBq aVRj5aDiPYWh2woJ1fJ3 4ti3HufM4B9VED/UbkUsc49//P94mJSyZqD4G6cqKmePrdghIHZXkk5cllb95kngXSp565fP/v/9nKSz ociDIESbpKATmCQ8Gwa5 bHSd3dxVemLyxgh2vtpSytD+/v7//kOPndl0qYY+48+lBa2zwv4JPoac1kDdbB+zetnvJnEaNm/yybGl gEyLXeuxoFpsRQKHky5c IgW6HNdI1/ZPRNb0Y+f3I13GAQrQrQeeCx0SRz4vrciZ0TlXNBLIQBYPURPNnFYKPIVhfTSl7VDgSEjx ZKd2TO2cJK85nPPXi1zS Fv/bjuGWxZzpzrS6MNsd0cZOpjte+ywyT6UsRCBnYELHyLQumWQ0IOzUJJlFBJdqjV1HGpCg7l+3EMf9 +tYtU8daee67daOWgil5 Uh9Vd4QeJoglDj5Qu90P/hdHyZm3pKCzgIJeraLi1/1zwfr7HbUhd5aAf+1QxdxZZC1soYnOwHZPJj/+ ANveIDL1gdp83/+K5W2d Fbk4JTYN7SWobYgGxn26Xm6L1bqETOaSBbyh9+OeKBs85zevqSwuoReBMSVAaZsd9Dwg5jbcZDRAc/m1 bfWI0D6anb1155qXHFhf IWVuXCu9izqt8kv96mwKJuSbxZBTbVBEHG9ZvW9zA8IzmlLuLdSwdZAOFjYANMzKgM5prx3WJtZkd2eN 4kGVnSqk2jhLy9TA9h14 0vtIC2AkcnWi5nCt56OK0sq39x+Ec5ETpy/9+JfM48pk75e043v1Tk3RrnJJvc2/fth1/hTg2zV23xIv rQRgMQgihJYsX+/v6eXt 3xxanr5pQtmLVQsvufshUeLbT7ekcanG0OIbpcDVLSEv8eNYjEbDTqmvfsFIItKOc1RyBO+GP+o4e6+n e7aXNLmnnxKxPegM3vP2 iOi4Ihlr97ncXrbvCe2lE9Gq0dbOq2X9fZc2diCoLjzRs5U76eijNS5ZCRFFTzwjnRCMn5YgKlFQaA+7 SxYsFicXHx/p5rMfw2Db nYIbcCd6iAVt07heL2bvXzpyRExjGJunb11BmibveCJDfNehxHP6TzLCcMLi738VUUFfzp92K8EXvViV 0ehAWc8b6e6Xf7by7Hty I+W+AFRYGIYS+GTmqnI+wu8ydxO5Xxv+I4UvIYcWY4NCNnrcLlZ8FZzJ3uWxSb4+lx0j0J4fpvG8uk0N PeLKtAbju363mY+dXfyb gOjFLmiQ28PigOj8lQZfflCzM+a+Wa3eHCAYqXco6engXlkKeNx128K4CxEVkFIecdALpuc2miF2Xco2 xRBrEh9wCKKOTIgRFuYr 7ZWHyKqRChHj317+HRz9+RVBZUm0lV8XS8ov2VhSeLALg0I9M788GAtfA0X62D9CNGOTXVaGIKsS43SC EQ94ktmbW1djDoxcJiPQ uCgUjn41wib2fvalLqC14OhN5FxbMvs0Qfp8dWjKd8z6wy5dgCS3sPGM90elSr3jIXix7CdidmeKgOPX /JSSPZGp42Join95xe89 QkNMZhW9qOAkQ9qmzP/4gvV4/d86dRHEYRb4Vw7JgI+9Iq1FH/5L03AQgMDJj4jkIRMqwm985t2/nj1i /YYPKVSqHnAspSKMBgFA d0IVvf0Seu96AtR/R/MLBCgsDqSmpDMPUq1+pDMtz2Nu29tArFucUxgIQJvi5l5uN+/GbtFyLlew9j0i 1ZtVTwXkqKjgWAf9MICL bCf4r0EP8/yujz18sT9+4YIVZWnK7wZRccJUMd7eWGvb6iqIXSuTUcJ9i2FM4BAKhJHA48LAmEZxJzts WeLIAIAhzTt66Eq8+/fT o1lPRush4ibwokLPvdx3cm89GcQ7ECk0+1Aqo496YAdDrcmmWZRKGI+E8XEDPHNFhSdNVsWeTTMgp8ZU Ex7oREab0k3e9jIe0aYf hWVAtiLGVget1tx05SomoGm3paf3rujc8yXmnEDgqrGgoTrrBvn0pjXN+vWCFhQGKokiStHdwBACTHzF B/DApJjRP5zy+ylMYW5y era6SIqokyOuRbrAVUKvjOIbL2JAu7eDZ3kALcsZqapoK1SGTSFGWKXWCXaMWkSPuOOWiVtsUCOW4yyZ uZKaCcARCxqpFboBE3g2 B1tb+1SqNAWe5fUYwuoTl8AUasMvva4tMbKKaCkpZoJ/zPNLMPbn7ZzgoQwlEsUZcl3KdW84x+fLli5c kMl3iCXncwL2Hgf4c9vR aGcbEZIq9SxcfjGgLcovzomTqUxFcVkUOVLagrss0chf90pzU07wmSVNKH7Kdun8YyNpaX+4/aNuyVfn y5Av2l33eGdzh5vnSFBA AwCJAfFuNICQSiVAo/YL5mFx1obCHMlwiOXUBs1cIQN7JGNxmQ1+rQd3l2Y8vx7Nwvqpob3TTih/diSz ywYErq9nRHgyflAhnb/A IKl/Bf+L1vFYxIGQiIUMO78a2Z6JwbE57w/y5e+V1Sg6jE+buW65hhkIVQI8p6h221GyCtoAZIEBNwox zFeQw7pul9uv98NBqa7e eXgbKKfD8dUIG4tyIQMONlUZiemkIlLvXB40+cdwYuulymvzjnw9b7rR+/S/jXpbxKtOle/gdIm5hOXk f6TmeX3hYujzltXiKSJs q9xg7HF3/SK3FG5wH5/PLWIpUdQGNTGp0JCVR216eCPl37cSuY3rYqcnFmCoKdrBZwxL/Uz36/K9zpw5 3790/f/ZsyJmzi+bNW79 7nsf31GoRZv0o7LpCnHvNyewX8MhhKlx/vmM5NSASSR+io8t6+wRk4nZulBteatjM2lssq05E2kye1V9 ++wiAA8hQ5rE7LBNRVR7 LeDL9vg2FRvXDfMBSoMkO/fiJLwbyK4f+jq8CFUn31CGfqkHvLipoWJbcLQuFAPCVUhvf0FxTZZtkq4c pG4l2QdsyIa2hz/cr+/v 69SVVRZh/OgsYcAZk55/TNE3tX4A1stOJKem261IFZcnIO1dNAIFjLFZuX33SuPUncM1zAia6u+imzet l0vjWv0aW6vAR5w0Cvdv GCU4EwfcdLJiLCll6sXpfj9BiimiH5+oablSCxaMSBzK0Xnd31bRx0+0uq9Jm9FEr3dNYRP9WF4uvwm2 jWU9KEJNEIaAfJEGJycf MUpSpGNPdcYywTm7seYjWyt12ecoiMWfYIMHZfZKiGloPYY9RV/mvHOefj5WKr9qRra8P9HvfXrb8Y49 e5c3hH/FnOYQIskWrFnl 3ENs16YcEyvzWfQjz8ky1v2Vm4ibDxZiWPpxXha2jIkj3jMJ1Ko626ooLjc94bQvMyQf6oUuaQnbT/OV y/676zx26rWjfgxgtDk9 BgmpPL7hr978RzWrbYMD/D7UmBRGhwdn5ar8amdUOH/32yyaJy3pX33fCb/1LYzfYsrlRVfxK563lUAe NZ3nHGmylg6V4X2RJHB8 nSj3Bd5aP4Kb9amW386mZq9wKAUQqku5oINjZxmMkeO+HItgbHy9xFDi20xlu+vwV7scG6b6pWpqyF1x 0HHAAHEJv/wRodEZFVqZ Wf6w6u6ftpIhRa2zsIKRbq6P+6v0Nv0DECQ3Nutwll6MbkLya6WaiPDAO+28S3NGGtVFkAwuqWSWmNxv NFfoT4AsYj3tuOCQ3nmJ lXYWYEgArrC+WtWyac1iEfvxUbvdsx+8BykmOHFf0Euzx+RvA4TrPo3uAvSXV/boEBCtxW4gk7DW6hzd AzT9SWG4nOgRf9R//OYR 2fmXBXyaafugsmZhmz6ImCfuNYRMfTYRwjEjErKJHJTg2RwEikTei60Y1vT0XRrSZt3tNow+6taQrEvO 1dIwzreYaU3cQuWLF2Wj VGaUyRzJPi2HQl1Iq7vveefcMYFzBT3In6NJdMBdRInh1Q2BZV38Cph3+A5eDtFR5Xp7sM/bjyALHW6p s706nNJz6wKhCcDuyPQF CZpMV5Oq6Tg0+VaZ9BaqXk6FCyUNz11y5A4rh9dc75u1XWu8287KHYtkye7JZ2wyBqv+Zb7o4DhB53rI +M4KyILvSYFG0UlmfnlN faoEnD+5XUVrznBfEYXPfds1+Yzo5GOPVFGz2ImV01c/1HX26oMfKZvwTstG90ICWokBe2exqpoPRKMc Aeg2V8wNHq10Ud9GJYmA iZlP8NCYaiW0fbMnV9Jmj6CIaGiggeE1f5pKhO+vtj8YbomL96kdCNncDs5wxOLjorPW8+3pd+7yJjTm wj21KNJinsxWLJt3CuWu DH5mIRXNop58exWOjIc4ZTNGUsOEAI/Mjbg6PNbgPXvDbDgt4xd/OzAEVnvx6kr4Um9YbuB0LAPkvdME /6TVWobUKTu70zIDbMmY 5wArry+XveWTJqE6ryTE34chU5+rl8ATvpdGeoKiILvP2u0kHdgNRuq6cc/b0QN+NzmMZQiyR/OOdQdO c3RZszwkIdSUxXbkF8L3 igu71rxMVrc4BjygCuoy9RcTRqon6D4PHPe7Hi292V/8FeFZ2r+8+voSUET8lTQcJGkjC302IcfFS31e bsxKffRIDmPwLPev9a1b DPkMOL/ue16YKziwXt71l5y2pyKZesUfiPSShAfZq8sRlEVcSLcTlyNOGFCreBXuacBhNgmdhPrGGiKN EinhBdsBNgxNwq1znOtc y7Zdioa0bM47abNkg0rMF0tFgdWwIRi3y3JqMI0TPFhTfGlAWMt1qeUpLxOS8Ye8YnWIBz7C7leD1z3a xxBtg2b/2Xci6PkHu4Iu LSKVLmmMCGG5h+yXlEBskpgwCnpfJAlEdnG6Hksm9lWReQlwiHHxPNYTaBOKMs5NCgEeJ080fLJRjO6E iZ4itVH1AoUX+IJRKpU6 cXjgfbvaRXsKnXtrBJSSoo1nylKdZTZuAgwSuoe9oBIZVA2K4Xc91E0PW/yz6q/V4zPcxgXA3OkhrUrw G9oB4cSwXpwRD95q1/2K 5b9G5ouMPEJLamN9R7rA+UmFKPCAqMOPjBHXwSYvgv1JDIyfA74UTZch40sPYaNvtSbQLEDjHecO6ix4 nofsU4T5tdckoGFUNBOF XruV8Lk9GAxVCCV5TCRTLUPrvOE0MpDpOgdR1NEi1O1iu0tLiyecXSQj4YUFUcAgNMKUNx6Kj9Prk9Wd ZhzwPnFUtckTmnd8bMAc jFtnc0i1uSfgAYZgw7Rj8VbTFTB182ArSX67TDmoWba8SmkxIgmIG+fPyLONZcpWK+yrttaYMMDhSZ2N xDWYYNtBvlBreuiHU99Q MN5V4693EO6b5GE/j62++pzyVZv0bWUzihzWvizcAxBXSNBeFzeGZO1i61Cmavb7sTefUTNvxz4SqyKj 2G77FLxDWHzAGHzktx6O RwMvWHRYkD6usyyjfwlPN62ghZ7oIVA9vulEvWMxcqkV9T/KMGdOefNZw5IwAWz0Da6OAe24xOd16SrZ ttmMH+ed+M9qK75c8n/A 39AL1cI6Ub9TUHD/PkTuWcas/Gfn2p97D028rRV+ibv8ckXXrDd7qxtaqdSEWVgyxsTFlHg7nNT1uEaY kTpulZ0b86ko6oeoMZdU eJylGFpaG9MppXCQx+NAtRwpRqaMUUNsPc4GA7U8un81TMNrtQalD48OWFEmYcYqYUA8IfLkAKM70f12 VZKPfqhO42Xk0t5dp6R9 UZHIkySDE/raH0RcqC0uGCLThqelaPaARuum9BGS6BLCxSaEy4iCgBV76i+Pp+ZAjCL1hpSNHvwXBb4Q iCF5zQSV/PC7YSf0Nq6M Alxw1LDgYUjZfYFWm8cjkcA/1yryFq2SbPPLCqsgv6t0pz31bxKkmDUbhROl307YR6+Zz4XDOcloqDHP x+qaUVPt8Y8JV3+7d6tY l6VHYhF5CGEV4yASo4gULt56wLk/YxGS9RIOhhIPBXOVs9xfAWcp4ZpsfOHLDDH4IvLPa/Zq1rdl/JIF QbPRjtVpPUJZmr7//5wB GHo3KZgXt4j15F0XuIk2s3bdKflBOQhps/tx52XO3juvbeQ5HbEMERb4AL193yfWkk76HsClqS7H2lUC +T3sceDfNOXY/SfPmuuy uhrppEp0MQqKbbHSnRhTdwW49g6uHjIuuy4EKehLqdMwsn2Aub3Ha/3QfI7fJVYXRJFQPZYC/NYuQAyS Yg9ORgG8kkM4IXqdygaK hkemNRiMCBoHeYJD7+Obl1Rq49b50Q29QnD4RpDh+wx3SvCghXp4acd6wO8m1sDXF7hoCZPqtr691e+D 1dhHmA7r/Tcknk6lAiYo wdx2bDWc1qBxAEU1nFNLAEFSZEtG6k4MeQQJcx5SVy2hiGsQHH1NMfZwyFiduIB76Nl84KrGE6r7WnaW wWb/9Q3c3kxVnyDe2w2p oUYOwF128mLd8TuCk08fPtzaelQeL78iNc4w/fTcAfqgiv4Bk8w3gt9o6GcNoEneoJMZcL2isII9Gz59 VNwzTLyLk1TV868Y6a/D D8FPvD7solicW7Sj/418JNJtWRt4Guha5fZ8T7yTOHke7sk4/I7jZRKbngIWEnqI9fcjhZfrCvfIf7Ve p5vb5obawmNrqpUrDR0j TPUBEndX1lNdKhygt887m63saNDG2/zyWxeGUBQ1VXpPEEINot9CvldWd6M5BXvhhi0h24+MROE598dA hsVzOIYLjPnZkkAOhVPb 5ssJ4689YXCtsZ8jx7lEi3N5rn3SwuDZcJ6WYYDpUuXehkJnppGjeJazzZwCZmwo/88/dPr6+MI20uAX XJ1648ctphJoDucB50+x e7JdaIXkkTktvj5ewdtGe8OJ7J5FxaKKTDV1dg4UfqSLUqZ+z5UimguhXlqPS1455MWr0aZFD0xBvp2L Byazjd0MeQQy63DQweOJ qyH89cCe81qGi6drSZUoIU2CFREEoogeFtYye/nweiCKBYe9F6Z+Nn/V26TKnbsrgiTZqgYXKg7Zf0Ti hleeUMENgPV60/ZJD9SC P3sNRWjDSc6bCQLS33Lhp3E662XYtk1z6hO1etKQaHcCvRMs6of+vMbMcXcrUguyoo4AyKqjlsYodK7v 6qw92Jul5fuioR9e9nDN tkmWFQ0ZUqhV37LalGuhQPrFYlX9zg1bBoNv1KHXugzY8oVAGcLWDpGYnKpGX1Vdu1E55q8xqpssPpsc emCpd1Lpzd7Wa5neOZAb PJlhWXk3kXwOXDOOy7s3ybo9HBJy+CRyvgwizZ2PtXLSiD1KkLWK4pmLU99fV+h5bkaLTegkf1+YCwLP hYxTicbgzG37uH5b/kPv vdwq8ENxH4hJe9CA3t6V66ihcsAQlO20MU4/CWsCUBrDCwkBiQgJBkpxYqtFpxBWr+2WTrRe6BEld7qf ycFtYyvLDsuX0NcFYXcY aO8eSj5pQV79xF8G31/sxjr//WCOIggLgcmyNTnbat6tVZUCxV7YksjWLocIs+M5Jf5nmRSX0yDa+0/T 5npmgNZ1aJkHukExqeSJ +SJ3QSICPlsDmPgvSrnziNSDEj4NGgM1bLkAYNABa1Br0nD7hFrNmDRNDRVttCGUXocSNDaAks6Q1URE AOLjYd+ch22hgCxnJSjd sZtto8bMKSsL0/FoKxHzo4gTMnmE2noHBh0R1Jc9AhPZ00u8RONDWwVMIRTUl4swf6FWTdonFbVFuFLG +8mqZzyLXIUrn4Lz2yTb u22iDgOUXLrOYNCSLZ6Iabi1hTPpn8AR1YtOdnxBiXvOTkW7oQIQYCUtCBt5LpuSEywdCSUbH9azTRpT IG1PM28zl0ayyIDRXdJv u1Lp1Via+eaiFrx9M3GC/DoRgifja8Q2tITVFOdF9UyEf1b86/tDipEhXL4NZuNlFPsVADyKiFXNwVPn cJbdYgxvoMvQSuZw6UzR llSZT3Qdeq2ncFDj1t1GLg3AE+LtEOBzvCgYSOOw3T+2wwjUSLerchuMicUCgXe8AWNHPSIODDTstrQc rddQ4gfrtHVIE0RRKBxA QkgZQeHrenho3HuwHvrAddgcsFPwAvqRwWW9e0262c7acgCshLfdjMeAsilPOLDYXFdcyoSQHJIwigHR pQVCfVro5J+wcKEcXwt6 QomOtKL56E/cgnYaoXkfFckijfpc1/KRFgBcsKpnCL80oEohjfQ93+XLpyG9MBbEeZk3hTU67U3cnlxq VlzRoCbUnlf81L/dNLOn vFrD6sXDZp1nQYmLqAFZ/Lb9ewya1as2koLTog5eGIqieHXMMeQIUNuyTfJUk4ASf9ZOdso4ULaoAS6J yPJAxU8l9IBp0VUp3iss 1ArS8UNrdWAIqIkU6fTKics5gacjt3Sul3saGUBevY+cFJEHJgbUdPRZImfLqZIRCVQORJWonB1ekysW fQIvOoFUjeLtCMRAkBPc fhAo9D4jFsdTTzgD0qnopfbEJjkyh38cDt8lQfDWCURLnkWO1K2fDUxhcoCPOCpaj7GzTQXgOJgbQpaq u3l8YUDO0ZIk9o8pWl3V yPxS63suO/MiMJknVXPX9zGPO4jnm0GoRqk5ZZyNUtTsUDWMWQLQdzjKZbpgwbnrqEBzrqvFkDL8IwBv SM0vIC0zFoVGqvN7abv0 q69fF9+/SosAq+nCoa0kPG10P/pMiEPyVssDz7B4DzcNr7OLcaxB2/CubTwMWsSAjFS8fuOFOBYN1BdM /S31g/u0leWSIbIkGcu3 q7Xxt2Ke5lmQYpXnUXGdIfdJo4eTTT8sxhHYSQE72DOYZYvlAY8HCuRTpxsd4/Bc2L5n8q8+nBsnX4bq bEg66rgM5lEfOa1O3a6y ZVCQumkj3lNSes77+FaPXAfu++LyYFUOgDQvYa7L38MxK+nDHya26JWE+8lL7nMbMw+U9e/VEAqEg+bV 461m8h4vAEiTblq9rEbJ iODX/P9pwVr9opCTz18TWxETyp3EVqmBrVipYwBFiGSMq6EzycgFkMC4abgPM2npHJdtq1ry2hNZnYn5 8QBAH2qrXyXM+VdV56wb jm8Ak8CC9Pvt/5nJc7hvVqVlVUBxn2uiSKOBgVE/Dq2UcFZtSmQGitt2uQxRzbjck4iLvENBGBN3UEkc 2UaDUuXa15xd9w9j38OG UCmhaPjwGKYyIdLcU4la11+qyx17MsmN5tJHYKpwpzapCVwVsG/9pe/sndw2npJ79k04qBFbcBRIUWIi XCmTz8hxMJVOsBcqHEGj c+5ZlhzdKtQqkDlj81iKRN9E9LBvQXIGah2Vr/lnv9vEWQQCXFXQxEgMIQ94cQL61+QN43bpPlyyb9X8 oMPwwpzSorW2nFbtrv2r Izv0hGagPqE1+43Rsu+sK30JJrgybmht1Dao2/n2xXzsXWltNYfEXj44JEfJxp+Z+xD34QOgWXLERDd4 QBE2TIyCv+61OLumNqs3 ThDVMUKJBKEc4LESWKnhfVpEQ7qKJQVZKImY//xJjc06fLViMiil9UG/FiRQRmtg6HQ5gZT2tJ+p1rFS jyq0RWrrqdypBBmPJkUI yf4QvywptqQAG4TH6kY/oMtEumYLdyEdzxPTmdlpNhTrSfuNJ2GRGDQMKNGchSkg9/La1ZDzhp7J1rbJ YHeMQxpCkr3Z/z8qg7qn 4wp4OFkKmWIkqLHX4bh9TmgMCIxGKxfu4oTeCk/FSyBgArLAwFkQ/frz0l1+ef49KprCBMzWGXRwcogP FldsBQZAaNaXKoXMySb2 XCLb1IeehnaVUGPTIrd9KIcDBiJRFULUGFtTJcGA5CmswzergsuZiCWUpOicXL4hE5c6O7ZKLqJi9mGA JKzJIrQYJBIgW+Pr5Tvj jb06kF2/6cbY0I4DYA6JSnEjOGbs/UtXfIVYzqoNwFN0gTBJKkOC5w3stbNtAdf74riemUfrK5qhcfTZ cLMTUnwwPiWYE7JEViAv O6TFl3jy8txYcmjjYbTay2IYmoozFKMWZxtbwUHtGb6zozyh10fxX4Xk3+cMKzFtvriNFyCNlFI8Up7q H5Yg2QWfm8Qz8YTk9IOr UuqXca79S6mKfYSvLFD1s6rJE3PykbFlMTLGiO+fJI26M/mRlaRjAFOBLRNmKOeLGYh8FOZNqrXLabFW 1xXoKYxWssDAfyYpfl/+ +/FeDt3/y9/MYF0/QaYqIQAsAIdfdq+xKTnJj5EU61f6HphFvxBLl1lNbNXwUsxMnM4WPWD21Kg/hmz5 eje1fAVt8hYBHDJpIUJF gJ8Pnp2ffd9fevGb1Qszk5rWh0BzDMsUecOX5hAGT1mAIXtCf6+ML9lkWLEJkzeBeNXZJqFmjLpfEYYH HvsArIUX8aD9uYyn4yzu 6b9m+Jid06XRaT7TMwoQJ2m+KmfzdF3zizdZfrEKamYIAK7+rlAUofIYbAWEIIIKLOhOoW3Wj96A8ENE Qrt4+z9prquPMaAYyBuc 0kiDB6a+i1+t/TpZ1si1/DFWIIDwRAVjKEAuWLQtAfp4APXaxpIOVsWRtaQzO+vyoP8FqXo2fiIP/DHf v3Nn4+1jdgIVZKf56otR ABAkAVapWHThoUM/agVtLm41H/I7fuiC1g9c0/jMd5Wvbmn4Z4vvGBRFxA524cr7iUNHPKhEO/CNghYX BYEoNuImOwWBKDVhhYTC GKqAZHIiRziCLQGTVhjc8KAULqDSYDOvoBYSSSrGUKAvNcrRIECUJwfo4KQJNpFMROPcbUGIMLqKPNVv DoqIJUMLPlwi61C6/Y/7 tMAyj0+pOHgKEgIivCwgSK7Js52GnC6aawgKia0UcRJmCx1Oz5we32up5+/dGJ3FEuEplEEApaJ2YGXT J4KF8nZjUVdkotHOKISG xt8uP+c/q0D11njen5ld1I9iSuqimNH4OALMMet2CoAn9gv2yBOq0GnKqd209pvVZjvc1fYdyZn0vvwy 4ditbcAch9pIwe4vG1+v MHa20zGIv6tUncRlhtMf9uSbDRQQ1c2t2rXi47HZRBd+dyc448j6Ub3mSRNLtTiDP6udqIv0d0ac2v5V q8DwEO516lic1B76AHXt 5TSQzj3ulPWMSrv9KBiPoJb96nriNJBLvPoFGu2MbrHvtTSaT3JxxlBvt+qmjzfmGQWkEaWe52hWKolZ g1hXyv8cUZFoTGxDtjOr nvsJoTv4WnXdFE05ib9PhiH/xOvkmNSbY1L4cqIYQn0u0EQuFuIREdfRw6LYgBs8UZR0zieDdRySR8+7 e69ur9+EUdrhCDShz3Le ehazbYzVWBN7wDf794DiDDoY5+PV+cvlxy1qgceaHLyPPv8ID6oXKfn3d4vJB2n236TRHW3GEX/V6/ZG Dh/zK+yww7m6ifu4dTCt /o1sDpILOw5zyrDCC0B++6dS5c+Hyo7/0esPTCxKRjg8+woRR1AwTM5crOTTZtUBA9EzsT60/Q6eO/G5 zWyVJewyNx1IjmtVlJky vHhqMy8TY8TMepWYotaQpjEzbNOyDjNdFOv+PHVOcWFOmTeO/aJ+bm/vj+DpsmDfUs7CY8BUcFq6wd/6 xlala5j69cVxn13C23FL I18BW3VsuMr0zfBG/Ln/z+g2/3X/zRVhGKrtO3i3beO4c99ovqBM/r/bfT2IV99/oF0a8Xj84TqBJ6xa Kt6G3AoXhr1zn5KEGuBK CrAo/e/JdHzPq2tq5Zj4jPn0fWpJcaUiYFjR4bMPMnQFHVKICkObus8irWk09uS9jZpd8cMuACKj4teA T9hXUdJBXi5j5/ElFRUZ NL71o2zPulOexVhDLq3l0N+MjNogEmQy3qqXKf5ORWt9ltRKk+lKRhGWWtUrITD6m5blvyfWsu2XiW6X q4jYteKxte8ilHnOKNzV FLI9MEkIDj3wl3fBIXYKHeDPu94UMCzQBGT7+dDw35Rl4ZRNjBHi4cjg2jHqeFbruKv5+TPanM7TJCR4 23cSOD4QxWptkTdS4gXz Mzl593+8n5nEIhbhDlo8t/tuQ309LTjzDJrtO3Dj1LPxlG8VPQI9cz9CmWJjhidb3gA3Gygrg3QSF76F Gj610kHNCqq4EvilLpeo +8S3bCq0Yh0/f/eW02oXEHcj8pSbWIFdTgsm29UGHvxFleZcJjOhczqtKNIXfr/1foDqlqxt2OLUjavx +fz2805DpWF+NWhMeHvb g/m4yNxjJrTHXq1s9bl8u+Fket1AcXQJ4jakQWTqxErWrtRufXAjQwIYO9ugXZeSxmuyTpuIISl4l4yo QhcDMliv1vfHUjzj3jpx LJS8aJJgC6Ec2Pj1yBgy9q/uiLfbuNO3EgUAl9+pmgSji1rDjuMC1VVGGGXykUAXjQU3BenHSmXBhYXB s50DKsZLqP4vcoHZDj/r 1apPHOn3BJqh9ofQIr7crzMHAmDjuhDMOInMe4cr6y7oclOm7AxJw9rAo5oeu5pzpGR+fz0MRGNViCDU ULXbx7bo3OyZall8KBq5 GjTJlypg/zTZc1FuM8sEd0cb+tc6VSq70Z0OuKDNtiDL196sdqlDM3j8z+c8p0VYnbadZY9riYrDnYGm yc3O/uhpPq080/0oBCI7 vji6eB6ozRLEBFT5f+6cLGHdYvHAUXYkYo5ymKnne4+HzD7KhNEBWl9E/3bRUtVu7hxUbKNesu05rog6 4oNycnMiIyGtXrwqFwqv Ij78xKWHf80nZI/7Ytr1v/359+t1DMFsvoDJEV6kLyKFUAtXpG8Lkn7oOzhy3+0wGKf4Dh5LoT0rVZGy C9MQKBwGb3bVPsObZyyj mrbe1aDEFtRhObHY+/A4klxmf5zYG1YWbIPhQmx18PloFNvVBhb36u5qbIIKjJk/euZOcnDxpyuRvvvv UtaetekT0k4ui2DMnl50 /sVhcUFE/fJGHKwgFPo48ZfTV1k8+dG6ytLM5Y0zEuRLRBTy7bUAuCoosRhGCYCCQpdAy3khMxKHY8SN x4+p1a/DUCCgs4Ke5xh0 +GhKLNi2dfYi/4zh1Pi7mXpnfpCSAhifGEuqCrrqR3Ej6ti0SJ7gnDekoCy77GMhgCQYcZLRt7cpIK8J GvmKv7guAao3xG44QQpp ZsXYT9fGn2x9oSRu9aGIKpdVhHW2lBlz/f/rjZF10PoKFlt34WFcc5xEB1va95+aNm+em1Wj23pJuIQr xWBz/An9gvOvuA72p3TF x4MUnpdlvFiD7ne4+YJMjqWiGDP8qNYw22ceh3XPwnPhe5E83q10twmg4y34SWHyIKwds8HOk44icAh9 ftre3H/XNN/C+V2zZo87 0j1tjhQazF3tBc8MViW7KIiNLAd81e3WP0nF8gk8o+/v6+me8Ff8XPGZwFs4tMg0PjynUxo48abEedoo TL+mn51jm4UCmPcn5SWM ioEjFjFHiPtahx0k68UyNv7Rgomr1F1/Tdw8FAWiMB75erewC+9UCZ9Pzopf3Kf5f9ErDiFEY42QOg7u XPkM6aEgiR00Tge9cG2u eP/f4+/pt37rN/OCjhw/0fc526a9oPWBU8CUk6Drj7/j7+u3Y/kf+0N07d/r7+aRo2LhNhLq5K8OvPno Wq//y5Uvzg+VLvAR51Ed KCOSbAzxqlbpnt+7a531xgHr9odrj5jX2VGwXmG/g2mDTHM127PJB5Advtok6zLTWAwJRLtmg2kHqM6O 91cmIdHm28gZn02hFjGY ff/utv6/f/0w7Ic30igHERJ3eeY94FeD0jdAhe2xTSIShM/UmVRoti1R7v/Zsf1+/6k71zQk7orBKsTK f1Qry9/ULqFotMzOzIDG sUGEuOlq7zE/Ww3u0NKzBuUQ78EaErLyKp0bqqa/dcgQP4qlmqblZJaNVeYn01pI1vUG++snf12/GTz9 ZHN+2dStf+A100rXq8UU jxyqW84+KuZp33n+aEevQHvb96wCujtAnuuvA2If8bzAEOCad4kk1blBSLE7nu72xLgW8vGj5xuZM3Cp 22LVnuBPrumSjThSO56Z V5uguxNjMpXyRWPPS3lipY/i2kgU+Ct9r6t0SeJbTkjN8NmnYEzRFJc1s4++r00rvjqYXk9JbGhQh28r 455VALORr53VZ3GJN0vr qcu8AClcAuCoZ918EJ1nT2JoG/QcO/Fq036OBpbCAP/TkuGNYRMIy6aQZf7Xtk5vb2DleWGdhpkLUODX BGueibGwEAN1Bu8RXN6s gX/4H9x+wKvMRpKamxr+JN+36+GCyXYkq3g6sr2Tv+X0Eb6iwR20pCO4Qf4uJgyMpRruWc63jSoyu0vb aiYs4itWIi9gBzyr8/rb ol48jj29sk/kdNXdiViaV2kT8vHtGzb85qOPtHAV8WyUca0XFpTu81asciu1CHjKcXnqmkxrkfOmOOWO J0xvwBZQKzVc/AQpBqVS YEBsi0mUqIVb0k5ytDS3/jmKOKw9ti3si9T9sGk1IE4/EtVElM65pyqJQQu1OYszl3pbWs+fN9/L2zm8 GHGfzSA1zl/Ud3y49Otn QRu56PMaR4Uf1blS+Ih8z+blbj+9anjc19QOB/g6p6Vzvl96tv/xdHLjVeKAT6n5XiUq3n+Z5SmXf/v2 +ymrLFU4gDdnt/fr8MmK d2IpUounX3Ib0F7mM0sn7+cUElVgY0K5MhUecflEbA6bWyzjKRrFKLlRmlBYu2dbMZmbd1zv0axvXHnd AQPhznaUxC26man8mTZf MLWvxcQAgHRaGbEUm6Swz260GniVm6866k4bNy3YJBq7mIFvzvUXe27avpRu0T5yO0s+DBNQMrFe/vtU sbt+65eFZhteYYdeuJSY cMYZXJtCwKJ8vxznmUO0+GFSxEsDQs89znczsTIVPSLhEtwI8JqfTgyFbPowxuhJ81evrC2r9/9yZswA waOgQk3+PBd4+Vm7sg49 AO8c9bpwJTKQEGQNZ4SFIZ7WTRP0+iKMFrch1e3/9NKZVPOUHFWNjJCZRuYUrNUwKFetQEX0+ZEQkTdO Tx72fLERO67gKGuqLsDx /z37x/EV+fFgMoW3omkNW+k5tYDmu6CaxFI973lcLxg3cSyMcD1+rhkr21rsuEGC5603drHNVfuGFL9j eK9QzXW7zPNJlnEV21bS 301T4e2+/evWqX//+V4RsXOhd4o1xqKluDneUm8hFtpxR7/fN8mW/nv3UuCZmHFGR5KIp/ESV8sfEodf /CrNzGDRxQP8hewLThRA EfK4hoZwHqSEM/eulXr2dcBg0KHT1aLcA/06jRLcfXEMI6oHXQWQ3q4/UecDX4vv4MK7+flJUcIcO+U3 UTdGqIQi7sADj0vzEB/b yVv0zZ00c8fOsFbriFwtmBss6/Z/DjTGuE8Px16WV4a7tQQl13iKWpkbnbbWpQLG+8FOLU3ZLWSaas7S 8St+KSmlp1Ezb2TnsDQF tVo/9/dqEwCvTYLdgT7C6E7ACv2d9sPQzdoPumzptZ7qOnExsIMc6k2xufj4VPBOhbNbbk/QTYwKa9nq VEwAuXrhw6+KX88RjIuG +7X58a8qFAWTezYJhOduNFvj0G13M3Ua707cuam+6Z/tv3xgN8A5qYoaYw25Nfesz53Eu8JqOlcUJEE+ /bgV88Weo3YmP349QZQd raxDkt6u183/hT/KD4zVu8+rVr//QuyDHQy1qHEPoIsj1aT3AaGhmNSLIhQbVky45do6hmMsXZw8q4WT 6oVC4+rd1/WnIcgSlE42 4zQVdUcmqy45KCRKbpoCDWjcnSTzvAbjRHYxVM/s31RauaOzw09iTKpsDqjJx7IUQS/lt/tVXCPUbNOA 3Th4/zr4b+PunyMzMTEx IrN+qcS9PX11cf/yu2YE9Pk+ErtPvURWVA0Lz/ozGDpARfbZ7X9+A66v6s60n+Ob1m0k//AKHH9pUWbo o4uqS6v66Q//mDQD4+vn 6+OH0NPEcqoe43u/PGRkZ/TsBQXQX8l5d+FqBPdf2sIM/wsEDb++xksFLCOIMdHf9Iy+EhmZkZJgHGY3 DU6nA0Zx1LmLUKjFBf1D 4afc8PkOs5Wafs4waeUQp6z3kZz7ofryoOZb0UfvDMmbe2ZyvichFJACS/zgZYw8fi8CVJd6rvEN2qJw PSxaK/f7gH+3GTZrMmDk RXUEY4gwsJ2RG7ePPrCcGEi8bt6az2a/aS7o4LYUP4X3prCvSeD34igkJ8Nb/bvcYydBYMKWqZMyXk2Z 9wuo0d8EsT8qmjY2iypw wdJ7E3GP42XhSQKnIAdjj/Pj4+hP26CfC1Yj3r7I/q2ziCqVKItnLNHgrYRWo6erVINCBMyGvVgdlTyH yV/wgOyGtlidmDe8ORu2 FCGNMNKlWOnriKw7FmiG+/JYsoiqhHvEJh5kh5RllcrkYmQk2LRYm97K1TvBctfy2+buo1j932BMVO3J ngh6udB3XODg6X54lu7N pnpmtdwAAiYmJr1+/RqAgPEzyyeg2KxKSU9McNd/uhRp7AByVuHCmH6c0ezn2fC0umAXsdO0lxH/AwIH 3OvGto2lBtTb29Eke9fD sefOPTvZDGTRkcP+AYvYhGxO02vGWP1RR15naL3dcINOFd9Vgr55lKS4HfNDD2SrTXhrw6+GHceMNRoP VDoWJ+j9keEr5bKPHk/X s1Bhma0fd9ZR0wb81yfWT5gs9pyoHzn1mOiHtoH3tRrAoXv5l/2sXDI40dx5ju1asBbb9gah53SOrrn7 +liS3PGf5KXuYaR2uNqo MICVwY4aXtZkuC28DXIPiDk8jE33xYAehlfTIAskIgLHOlBnoIJtJt60QnczMrwqqF3Ap92XXHMyAHy0 2Y6hiA39rAnwU4MZZOAB N87bcLXiYrSiOsVhYpjMONVvijVHv/Pwdyb85RSkct1Fa0XTdHuJk6bJepWmEtG0cJppoiq90/d56GJ4 PCUlPS+M4bv/efYOHDvn VSfPKyx4zt6xHNBGAzRdNQ2P1HOn0/9dn+MiRABD/3c7QSAN+qGNSoWLFPn3/9/5XYs2iD8aRfuAjCc+ Pcm0DcBpjGuv9b1lqwhb ccU0ue6w+o1LRmfEtq6iHICapzaDaA7KjFgEF4q3zSWNe8QhOmKkAXUx39AwhseGrYDmmHZzr+S369UW uUbjey8zh8z4/+lYQjo6 Hp54mx92qRVz7x8stEBGZ/1cg+GArG9+hI6JaDOY/ruM/qWGYJiJptLlnXwpjOVAvCTRej48tkqB8q+m Bj84VkiRo4JTo2kVtmMJ cLk7rSGkAxkSD/oRDKjMJ0Ghwk8qOb60eXwA3DQrd0WzAzx455VO7QwVkTlcp2jj17WrV19EqWvfTYi2 tSUJ01UyD8r3UWVvoZpS PpjSltn43tlNidkbaTYweTF0EC+ze7YK5P/iehnTbD13lAkjkk/9eCBrTTT3cOUm9rbb+21LKtDN3UdM c4gaiyL1RcBulPTEam8b x/UrM8SrSKPnNK4cpoWHZvc1eLuHoBE4pf/L4ib+fuq3xq34vO8/mZH9Av/7O05ukRuYLf1myRdWCAMW SzRpHQc4pO1hLcVPUbOW JDrc2CLy3nVUtqkcVlLxa/Vq7ZE9tKsZmlD1RsWlmreGPeSdxatPwTfcbRxfM4PieFvHtNYQWkl7dzzl yvh+yyTHAaDQaGaNlTID nz57/mpkPcvFZD05jzIovfwPKb/+yaNGzZ8/kOt5kWbvvPv03klwcdDZNgiYq+Jcctkll1n4Mt/v27F2 6+JfuPXuYDzN/BB/3XnF 2pp444648sr96bvdifo/pHpEG2JlOz7Pdutre1SEvQoQY5Va4/nwyZ6YINGGJBwOIsafZKNsJWAilwnL JgB6hrd9qg2+JARW0O2s /5KOu8hGb8B8TvhoSvZfnQamd3fmkxEPmfl1D+esdgdQVXTVAbSbDDPb70sMq1+4m8a5oCbxOW7bAwze oP29gHzTXCsFMlcYEeWj dit/Oyc6+drIh5bMcgo767gDuIekhVQZgIm9wTxg8RUCcVzXSus3SVWkDRqBM60iwQWozdS6LsLaclds 8wjmbEm17zDdnWv02ItD wrGykvlrpavubuhraSGYPoBQdZCwoVlFJRVwrsiBgEX8ph52hdsVu57EUeuSJ9jHniWtk75ZSxs5sleJ a39au8/Azh6qvn6inoQs 3AQChUFjx/KkL9NBbRU8C9c2v1s872DWELIrw9+fPBw8Z+kFF50r3vuHhUS5YhlFFCTJB4QS5GTJCgbb TFDD3KYS19chva9at+9s 5liM7LO41t2bqSsAPp4qPYuF9l3CgLlvYzy88g9/xDizudm6lgz3rYXmvwOulTTCL58XjFjomu8Jf8QH +yO7lG4vQ/8iNznPowMH XfuZ4QlxSFRdN3m+3Xz/e+zR1CykEeNm/F0qdmg2b0Bmiu5uL631keOzbhBNFyzFu4DoYVWW33Nho/1U b/c761Wh3O4FKjNo1w+Y XUDzhioN08qlmLHGdNYXJwmqt63328NfU6xT+bi037oNXsFjf8CuJytC3fBoy/+3J5yNiY+GSBWEwGCx 55Beq8pt1r5uybM+io3l NvhxVjkosRt4TzgkMteIE0Ub85gU3kKHt2n667nm3/F4vgAu7+/EvumM54T3wqkC+2YvbfZx1BPVS5Uu /hGNYo9gwdp1yvvFJABJ xMeM9RySeWNJs9otq8l92o3t/AkBiYuLkH3/D8YLF4iiAjAv2V3KeQEWx8eVGYHgRkqc//Kcd1Pqjz2x PfF5j46/n2dpYIMWj1a3 34HYhmVjwLB1+cFK0nZTKE2a2KKHNNLQxTUs3KW8LE5049dcEw0Hx+ZWwTOJr7Qu+d/JvwjBMyNmzVme pan6L4q7N0+/b+/cz8iv r60eufsoMLPyN+zbsTuEQ3Po0cwJeE5Vizhr+hcPY8xpZdHntxtlu/IUL+Tnwf+7evXXzZonESg/F18+ GwvLdq7lQO2JelKYqYrl oXIIgTAvmFO6/dpzEjwzWNNDd8IMwt3BRyOoG7YHrWCIENvnP08Hg+KgAW0Oi76akCgiqYUIE7Srlw34 RRFFU/8Nqt3lBnc6bFGF o1J29kmVDmdde+CiAjpjs1mSWg4WOmio0EaAypJyK48/aiPlNVYWbWnj1isUJ2OfS0gFUNXe+LoYlA9f aNXQBhJrttEOH9kpGesh Rc8RalsHfgaQJMrDYDOreiH/XzSn8IkS5Ib+nXaUHQjmutW39m89u0exIy4aV3qkr6Umt9qJta+FCkiQ pXo7sCwmbqsTBpyJ9eYY D1FYkW1oKNTl5ucFj8EbZgoZZBXhgv1ORpZlBhPHaHYkqCvOn2Pqw9uzP7kLooOP6r9WH611K9HR2xtG Yju1/AICnp+nuqvpC61Y UvDxV/ozJGZVn4pn3s/g0O808beFW+7QeuKq2I/7JmLjV4rkhJNFeNNLdkwMbqfa8a78vMdZLqn362nU Pp8QS5wiLluEWeo7XDPI vDcdx/X3mYisL6bzExwKHgo/qZkD45bVL5Q4qykAhDguzEIqXb4Zg4PGcIrLQ4GeHtT26Rw145a9y020 c2X4l8pAiC3ZbS6R3zid xEjmfvNIagYDFtDQ68AvbOwdm9m41L8t0DKScSh4QDQqC8parv4N2fqr3XKGV747pz2MzXhQsVZkUcAI iWPNiRxWq8i4iibTLOwE CUq7ANZRqaz7Qls/aaBq3RCUpXpr+fetW/yq2Punl6VLU1s0x2goPYpCYUu0FLzlkMavAhiORMwyonrk VJeVy2m9atdcvwPyzVYq 8LDy/hO7lU8j+RD1VeamAhrVZzfT7MnwV9kNgBWXpXx54YtlHiD7yvi1vhehWXs9WWMcFfd50nAqPQpk kuh277/kzQRZRg1wHVvo g47EcVyDbTjjs4nEzubPKNe0r4w62YIOuxFeDCPrYx42J9PFb7rAwap1wlr1SqL59Vv3n2+ashli+PTp09m iqVup7ql4X0aWOrsLeNR ybKdQA9k/xlpXLZg28GxEy44vJ5r8X8+bAZw9llbe9ybidEX+HK2fw2li5JzEfX8Tdk4jMm182Ces2fo tlZyhyr725waukz8ge+g tSExM/I4f27fH40OBr/gR8/gHHVAgjoFLkOyg5XubY0iex/LfIBpQfevfUkqXXxHTtkvN8Q8qXBMzCtD BlEyzC96phFSrjo7eiET m6Ps7Ba49sf/33mAUP48NsCLLBAdD15xp/764s0SGIy7fd6dkk6bwhQVy/uVLl5k+MXQVgNBx72+FREV Yqh21C2XXZeH0URos0+7 cDQijrUx7OIVxufwNWeSE9Kr5Yk6zc8r63SLw9/7HAJhXGzEZh3crRgJNpHERKI1cNixb6IHJWXh2gKQ R9/Gse0LaQi5FzYi0I/v 5s+c1SEb8U+t7J2lKkFx6j8iMGlTNrKhvoF5/f/w83kIQd2il9hxQ6wRQuliOBVNpYyVuByCMrfvH186 5a+6cOVqNtk/xnsAq7A7 j0LqvqXmqCZA+UACkwibDfmdShywrk9QlRSLR0zhRpLqVWF40XQ2J+luPFehoBc5Fpe5+TbxAKKBIUqV SRT9+sHSjsmXQez6UcRF qJOqo8t3k/NizlHOBx9mmkl+7ju/SULWhA11DwBOWMEwO7z22Fv7lkoeiotNbDZZ6JMs9HaGrqcLqoRz jMLIts9X/4a7b79HMBqA sBzRY0srF85+sb5ma4li16Twt7JSYlPjgyCIZqm8cVvhuPsqktGp2dSGEKFGQOtdONU3FopRov4ccT0M wyE5lLhuxoSla18hwjxi 83ZhZoFuK9t+CMUTYbXuwlN5vI+UbObnCcAIUezoIyS59HuRzqPHcjfZ8sIkQe1rk1wwzPpn6XyMXBMw RmGjkbe1AwyUhw+blKU0 OD6xy5PJqYY0fNAHHtv2BpqLwISAGRWK94kl0043koskRFsm/7B8by71mG/j5+gUIc5dob/JCiF4aY/F 9RsSh8+wWb2VhxFZ995+ fP3/82K5w80b3dHp5MuLXtM583/HLt9o6x1i6Ul3AgwG9gbuz4YzEY8vAdlZv2pi9sLKYKq3v/bOLi8u SZUsLH+WXSqUdOnZkWCb s2rUD+/xjThLYOMFFYo857nuPX9oZAdOv4E0+tsI7O0D8mPMthwUzkl118kvqr8j+1Q9kV28u7nAAPOS WfzKCQxGeHe3vd/zosZi ZODxRPliFE5oNW9QFSS8jSl4fhRDNoZbRTm+/Gd8kDmVulKfq4iMaz0AjwPRxl7qjtbb9GRsoKDqBCrU qfR2bydcb/+o463uuuw2 ev2/HLm3RTFYG2y7iwXZGRk3jysruMNYSK/eCnb1uIOx1WTiTVZ4TeJWFnV/+/cvYT5195EFt9itFKg+ 8FE3r6f12c+/R17de5Ux dw4dySTKfiltaF7DHP7+u+LSPfPvIY8Zpoiazl8h8CPqTcYcJkJqfzyIaVoTEnYQSc2U9AWnH3H25Kkv 75XD3q8ghYvL94AA3k+4 jxXcNEZMdBMWHRwx8Fx0OBoNHsxSfbU//5lNsi8YAcPMQKITw2h0vvcWsY7KQ2Pc775c635OiMV1A42s HarZsHV2VXIM4JTw6v60 fkxjDMHt2/2qBx6uz6ZY0eup1fNZczecQKmNxX1+kQOeDnqJ4sugRvztiv3zzCCPP/4ED/6mPjLAs++D +r2dOe2Z6drZOsWwZKJP FYLN1VNcpOBT14tPc58QRDoIFLqrz6b3W9daccanme4Hez4Hb74LpZ3pJijShcKpyVn4SFWEtI85mNsg 71uYFGKPwzTaltVy5NdT p2ox/5aYe2ENXk6K7cxGo2JdU89YBNVgyzAlxWRpgQZjU89tILGPRSI6/0LBRx9Mq0+Qcd9uTQrmdHj/ Djp0woGVKNm5frvnJoHj y8mohtq6JhMiB5+khW1htmNwQiFsqpeM8+uwEn0FosYylZMp70yXBy+1hNluGApFI5ahQs2YbPbCglhe 209PSDuw/QNOUWCxxcHD L0MF2WMqZk6FdfCyHkpi7vWyv+cJgMJh/A//Y+FoYy0J8jwWUxeAuxIlxdUKJSPlMQwpEJrCbeXuXo6Z UGrDCwmAwpQassDAYTKk IDldFYwMwuXnEt9UZLrOVjfUisGxzvJNWQKuVAegKLiZddDlEb2BCFsJQxvLzcXjxcHYDZLcTIqkTNuI btOaBk6OIZjSPqwSblXq zjUZEEFsBQeeUUkBzaGaQb5ZBQfSG+xk2bPyIhWStMh/++TFcgmox2s0fOgu1t54a6+joKBKJ+vfvbyH Vwy2bWe/n2z32iSVR4xy 6T0uXipWsRjH8Exv90qy3lrg813or5b0qFb4ZYUFc065RvkTAWaJjNjQc9GRT3721fwuaz0SXEI2jn2/ C5MKg6kcbTljOl09TS1+ 4jrTqBMfFMFpNjfof4m5kHrDpknc/ATff56Wtucf+qR4+fPj/zOjSpcuuXbs+yv0Zxh7xINNEpQq/7j1 79vzf//5jzF6OGMUWMPE IYSvvZ0gfejMvNO1HvZaDWY0kPeNLQ3EI8aPoS7XAi6029c/+uT8ktpWYy436Ipqq2vRGBB+ePCkk/fL ppxQVwk9gJRzMmBBHvWm 0uSvBYeNfAJ2lQf2CYFBY7nQNu6lUmj2XQ1wMqArCahRQk3yCJRc022Jpa3C0/IkjRQvB0a5Ox7OBXPA gxx9/7AcHj71d+NM4Y8Y M/vxFDGo6PKMQ3DItBzae+uXfdYMP3wxvOPLKoPKqcwU19jQgXKL+UzZTANs23bX6wul9765hF9YeFD4 pMk2xvlgRHbUvuZNYB17 eXdhYehyg42xJg1b+8aRCquznPwtPfy83+oti23MLprywIusYFq9nLCPI9Onk2Ue9RWfxWq/35509I7J //v179+3mTOEkBsj272v ZgDmS22vgAmq6uzZljHf6+L1u9kx9vfiRxUI/wAaUoCUj9tH86mIKMijX60PHTj+0mc85MoKryYYjL05 VOWrSUKjVtyq9sQ/x4MG RXSOc3lLWPmrwI3mQrDcoqnEZvFuKn8u4lLruZb1Yms8Klf6x9nmFBJQXa1toXoZ907/z2/fUeEdc14k 33ws/IwypX1j963LFQvx /UMdz3yn4G/Pbz58/JwL7eymfUR6yhEjFmNKzsVjvtUZBzdP14DhqOpwauPy1ljJIShea0CJkKNmrLGm YWKtWrQYOHBgZGWkeumj XIa1vUHSnt0BIbXxi/DmbaNNmVQGInPzPlgSy9gv2vsDSSMPNZPuQAPQgo+vNdCCxopNWNQodTbAG4IA Z86YoW3vaE9Tk2UgpAB5 2VSY8Ge17uWq41jRKopHde3xz1gqBXXwQWUYZakt+13I5yfw7c5yoXMEs1RrdYjPzFcVssUroidNKq/P dKZhSRURw5ywZ0EvJlwT Cy5rKxVPRCQt5irLhNFYHQQ2uvgYgRFqRtY94Vh2g/Ssp6qYfS7ePXzAAW879bbRyxhjyqELG5/qVVsW zWkfB6Gn8JzjreYm4sBf q1kOgqBnXjr6yGPl1+/smY0VvWjSs0YizwLWiCDZDCDwpTa6Wts0Zu7TS84MWsxDdmYKi312qylKgNNV Q2GA5ZDZFq1IrfeFa9e+ fk9xu8r4wXwGWuDlAzuEinz//mmzjDQvHXXTrMf6PtZa4lu6PgQa/++00DJrICyxK3tVFW2MXXnXNZtu JZ851s69Sr8UqIAbutZv kd0h6PiCquD1/v/tQ8zU122rB6O+J6zXXz3Cgfs54407HZm7r2PnyiF6ZDCXKOu7PPNkQQXn+achkMoF PHOgQJtpxSbSxv0dSPT9 A4ZEwk3TYqMpVmAOKE0hX6+EGa19q6z39dpUgcuym39027xPKoBMQz+uNxGcOYUmTRlCVXBchLu94+Yn zpqiCsjNvYfEKzrQbHx8 ZOXs7qlladwMoSlLjGL5xciaVQ7ioC0tdkvcMIV6axqT2HZrw8Zro+YtUoUKF/HH50UBmVMDI46CtUoN QK8eKfL3p6VDxC5Ajd5p 57QkONyKx0JifSdAFbOlUgM/x3M2HPwgBfCdIEw9k6vd/+uqrnJycQhJ5+fJlMbNDCFnkCACxsbGPHz8 7Tk4uaxZv0W4XmEPa5to PcNasWbwkj4+HFsFX4pz1+vqacjRhNYUaNWoAAG8+J0RtMksXlEUJKcGqz1FtzvOPtJbm8LVnPXJh9cj 169GjB+3izVXNx965NFr PH/0w9rSsK3366162e+/qFRu2PIQLpdFnip0XCPHBYNIrujtXDDZEdc1mnKwiKk691hrktXt6CS7vGy9 bTxe7BkagDmKXjW700Wn qiWiucEhpK41nLM6IFkKvXMLvv751m0UoakAJIjJn235/++66kfDLAXzTBWXcWjraHI0i2aaUTvolQ64 XA7HcZRYq4Tn9t+a1mp2 e1gtQz9IxBo92HoOh+tVr7J4O7zaSOCy2XJT9edXO8+Nf4FxcOsTLvWs3LkWNHbWOGh78ghEgOpme5ND gFue9sbw9MyR52U/3ily xPLCwhGza7jbbpCTV1hapQQaAT57qTSfeWOS7C9Y2DJCoMZMhbmQ5DBmmtY/JphwDYIabsd0A8aHKy3o EJQuu+s9H4W+ImTNnAgB EEj2rjgUWopr0Jq2w0bMu8cn+jjIno6JTVISTgi7m9a6g9Iii1pu38wNebzI/BQAATLtitFwXD7z8z5u +49atW/iOYEc9uPsIg2U RufnsPzJADlUSEiH5yYvT84/Fbt8Wclhh8F1MtcmsWzK1q4uT/Upooi3LdE79i+dXIDEDu6ezhWwm0yu JpCCD3Kq9wrWj224AxNl TX4y7oNSlNp8JCwKa8fU15mkXMim8jb4vEjV9eii9kpSTXYWDv/ofu6i442+/FYlEPj4+wz1X8vkJ98j tG2+syc/z58+vXLlichM HgJ9++mkw7qs3icz+/k0d775fqBy6LvjAskl3+/gwPoQfHS6dARgCxYumq5W9Pp1xuOb0bnqmbdFjJc5 z5usEsFZXZ7az3Qg9vNN /kGHGaH371v8+/oJhxoSjFaduYl6mmaGhfwDYLo6w7t92pjRDGX2YQzDBaVesYGujatXhFsenBLYZBbX QqBy5R50bcqRHcbClcYW u3bu//vrr/HMemS2MplMl1ryR3BwqZlGVPbIploptjGGi5sdrIiUSYmitMWPU2GwOKY2ElNTqR56nln2 qXFFBpz70QLZMQr1pt60 dsLbCfGpwC+uQpRySZl96vZSd4W/CnkJcPcs1OsOYhRzCGjlNeVTjaWiYl1ZZYrLTasZasQixrGUFKJx NHihXEuQdyZwFi5MVTxY CwmAwpYb/A55RS/z2m9DEBKRKBCoNUtXxLmHA></span></span></span>
</div><span style=font-size:12px><span style=font-family:Woodbridge,Helvetica,sans- serif>
<strong>Patient Name: </strong><span class=& quot;clinicalNotHaris id=[id number] macroname=PatientNam e spantype=macro title=#PatientName>SHANELL MENDEZ</span>& lt;br><strong>MRN: </strong><span class=clinicalNoteMacroWandrew" id=[id number] macroname=PatientMRN spantype=macro title=#PatientMRN>[id number]</span>
<strong>Date of : </strong><span class=clinicalNoteMacrDaniel id=[id number]" macroname=PatientDateOfBirth spantype=macro title=#PatientDateOf >1985</span>
<strong>Date of Service: </strong><span class=clinicalNoteMacrDaniel id=[id number] macrona me=EffectiveDate spantype=macro title=#EffectiveDate>06/30/20 25</span></span></span>
<strong>Attending Physician: & nbsp;</strong><span class=clinicalNoteMacroWysiwyg id=[id number] macroname=AttendingPhysician spantype=macro title=#Attending Physician>Torsten Mederos (Medical Oncology)</span>
<strong>Referring Omayra kang:</strong> <span class=clinicalNoteMacroWysiwyg id=[id number] macroname=ReferringPhysician spantype=macro title=#Referr ingPhysician>Telma You MD</span>

<div style=text-align:center><span style=font-size:12px><span style=font-family:Woodbridge,Helvetica,sans- serif><strong>INITIAL HEMATOLOGY/MEDICAL ONCOLOGY CONSULTATION</strong ></span></span>

</div><span style=font-size:12px"><span style=font-family:Woodbridge,Helvetica,sans-serif><span style=font- size:12px><span style=font-family:Woodbridge,Helvetica,sans-serif></span& gt;</span><span class=clinicalNoteSectionVisible id=[id number] internalbreaksection=false originalname=Reason for Visit [...] brought her to the local ER in [facility]. Ultrasound Doppler showed nonocclusive DVT in the [...] the thoracic aorta.
</li> <li>[facility] she required pressors [...] with repeat labs.
</li></ol>
<span style=font- size:12px><span style=font-family:Woodbridge,Helvetica,sans-serif><span class=clinicalNoteSectionVisible id=[id number] internalbreaksection=false originalname=Advanced Care Planning recog [...] pain plan indicated for today's visit</span><span style=font-size:12px><span style=font-family:Woodbridge,Helvetica,sans-serif>
<span style=font- size:12px><span style=font-family:Woodbridge,Helvetica,sans-serif"><span style=font-size:12px><span style=font-family:Woodbridge,Helvetica,sans- serif><span style=font-size:12px><span style=font-family:Ar ial,Helvetica,sans-serif><span style=font-family:Woodbridge><span class=&qu ot;clinicalNoteSectionVisible id=[id number] internalbreaksection="false originalname=Smoking Status recognizeconcepts=true spantype="section suppressempty=true>Smoking Status</span>
Smoking Status: <span class=clinicalNoteMacroWysiwyg id=[id number] macroname=PatientSmokingStatus parameters=ValueIfNull:Not recorded. spantype="macro title=#PatientSmokingStatus(ValueIfNull:Not recorded.)>Smoking Tobacco : Never smoker; Smokeless Tobacco : Never used smokeless tobacco; Vaping : Never vaped</span></span></span></span></span></span></span></span></spa n></span>

<span style=font-size:12px><span style=&q uot;font-family:Woodbridge,Helvetica,sans-serif><span style=font-size:12px>&lt ;span style=font-family:Woodbridge,Helvetica,sans-serif><span class=clinicalNoteS ectionVisible id=[id number] internalbreaksection=false o riginalname=History of Present Illness recognizeconcepts=true spantype=&quot ;section suppressempty=false>History of Present Illness</span></span&g t;</span></span></span>
<span style=font-size:12px><span style=font-family:Woodbridge,Helvetica,sans-serif><ol> <li>Patient reported that she has a Mirena [...] brought her to the local ER in [facility]. &nbsp ;Ultrasound Doppler showed nonocclusive DVT in [...] thoracic aorta.
</li> <li>Patient was transferred to [facility] via medevac helicopter she required pressors [...] the History of Present Illness.
<span style=font-size:12px><span style=font-family:Woodbridge,Helvetica,sans-serif"><span class=clinicalNoteSectionVisible id=[id number] internalbreaksection=false originalname=Past Medical History recognizeconcep ts=true spantype=section suppressempty=false>Past Medical and Surgical History</span></span></span>
<span style=font-size:12px><span style=font-family:Woodbridge,Helvetica,sans-serif>She does not smoke cigarettes. She uses a Mirena IUD and norethindrone as well as oral contraceptive pills to treat endometriosis.</span></span>
Also past medical history significant for asthma.
Since hospital discharge admission patient has stopped eating oral contraceptive pills she still has the Mirena coil.

<span style=font-size:12px><span style=font-family:Woodbridge,Helvetica,sans-serif><span class=clinicalNoteSectionVisible id=[id number] internalbreaksection=false originalname=Current Medications recognize concepts=true spantype=section suppressempty=false>Current Me dications</span>
<span class=clinicalNoteMacroWysiwyg id=macro_[id number] macroname=CurrentMedicationsTable spantype=macro title =#CurrentMedicationsTable><table border=1 style=width:100%> <tbody> [...] Tablet</td> <td width=40%>06/30/2025</td> </tr> </tbody></table></span></span></span>
<span style=font-size:12px><span style=font-family:Woodbridge,Helvetica,sans-serif><span class=clinicalNoteSectionVisible id=[id number] internalbreak section=false originalname=Allergies recognizeconcepts=true span type=section suppressempty=false>Allergies</span>
<span class=clinicalNoteMacroWysiwyg id=[id number] macroname=A llergyTable spantype=macro title=#AllergyTable>No known medication allergies</span></span></span>
<span style=font-size:12px><span style=font-family:Woodbridge,Helvetica,sans-serif><span class=clinica lNoteSectionVisible id=[id number] internalbreaksection=false& quot; originalname=Family History recognizeconcepts=true spantype=section suppressempty=false>Family History</span></span></span>&l t;br>Family/Hematologic History: Her sister had 6 miscarriages but no episodes of VTE. Her father and multiple members of his family have had heart attacks. She does not have any children.
Patient was one of her cousins was found to have factor V Leiden.
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
Patient works for a [employer].
She does not smoke

<span style=font-size:12px><span style=&q uot;font-family:Woodbridge,Helvetica,sans-serif><span class=clinicalNoteSectionVisible" id=[id number] internalbreaksection=false originalname="Vital Signs and Pain Scale recognizeconcepts=true spantype=section suppressempty=false>Vital Signs</span>
<span class=clinicalNoteMacroWysiwyg id=[id number] macroname=PatientVitalSigns parameters=LookBackDays:1 spantype=macro title=#PatientVitalSigns(Look BackDays:1)>Blood pressure: 120/82, Pulse: 77, Temperature: 97.1 F, Respirations: 16, O2 sat: 100%, Pain Scale: 0, Height: 67.5 in, Weight: 220.4 lb, BSA: 2.12, BMI: 34.01 kg/m2</span></span></span>
<span style=font- size:12px><span style="font-family:Woodbridge,Helvetica,sans-serif><span style=font-size:12px><span style=font-family:Woodbridge,Helvetica,sans-serif>Immunizations: <span class=c linicalNoteMacroWysiwyg id=[id number] macroname=Immunizations&qu ot; parameters=ValueIfNull:Not recorded. spantype=macro title=#Immuniz ations(ValueIfNull:Not recorded.)>Covid-19 vaccine (Moderna) (06/30/2025), Patient declined/rejected</span>
<span class=clinicalNoteMaSabra id=[id number] macroname=PatientOxygenSat parameters=Label:Oxygen Sats,LookBackDays:All spantype=macro title=#PatientOxygenSat(Label:Oxygen Sats,LookBackDays:All)>Oxygen Sats 100%</span></span></span></span></span>
<span class=clinicalNoteSectionVisible id=[id number]" internalbreaksection=false originalname=Performance Status recognizeco ncepts=true spantype=section suppressempty=true>Performance Status ECOG or Karnofsky</span>
ECOG: <span class=clinicalNoteMaDimasiwyg" id=[id number] macroname=ECOGStatus parameters=ValueIfNull:Not recorded. spantype=macro title=#ECOGStatus(ValueIfNull:Not recorded.)>Not recorded.</span>
Karnofsky: <span class=clinicalNotRegency Hospital Cleveland EastDimasiw id=[id number] macroname=KarnofskyStatus parameters=&q uot;ValueIfNull:Not recorded spantype=macro title=#KarnofskyStatus(ValueIfNu [...] <td>
</td> <td>
</td> </tr> </tbody></table></span>
<span class=clinicalNoteMacroWyshumbold[facility] hospital id=[id number] macronam e=RecentLabResultsTable parameters=OptionalFlowsheetCategory:Chemistries,Label:Chemistries spantype=macro title=#RecentLabResultsTable(OptionalFlowsheetCatego ry:Chemistries,Label:Chemistries)></span>
<span class=clinicalNoteM acroWyshumboldt county memorial hospital id=[id number] macroname=RecentLabResultsTable parameters=OptionalFlowsheetCategory:Tumor Markers,Label:Tumor Markers spantype=macro title=#RecentLabResultsTable(OptionalFlowsheetCategory:Tumor Markers,Label:Tumor Markers)></span>
<span class=clinicalNoteMacroWyshumboldt county memorial hospital id=[id number] macroname=RecentLabResultsTable parameters=OptionalFlowsheetCategory:Anemia Labs,Label:Anemia Results spantype=macro title=#RecentLabResultsTable(OptionalFlowsheetCategory:Anemia Labs,Label:Anemia Results)></span></span></span>

<span class=clinicalNoteSectionVisible id=[id number] internalbreaksection=false originalname=Surveys/Consents/Other Discussions recognizeconcepts=true spantype=section" suppressempty=true>Surveys/Consents/Other Discussions</span>
<br& gt;
<hr><span style=font-size:12px><span style=font-family :[place],Helvetica,sans-serif>
Thank you for allowing me to see [...]
[2025-09-07 14:32] LABS: Troponin, Point-of-Care* 0.00 ng/ml (0.01-0.04)
[2025-09-07 14:34] LABS: Hematocrit* 43.2 % (33.0-51.0); Hemoglobin* 14.1 gm/dL (12.0-16.0); Immature Granulocytes Abs Auto 0.01 K/uL (0.00-0.30); Immature Granulocytes Pct Auto 0.1 %; Lymphocytes Absolute Auto 3.29 K/uL (0.90-2.90); Mean Corpuscular HGB Conc 33 gm/dL (32-36); Mean Corpuscular Hemoglobin 26 pg (26-34); Mean Corpuscular Volume 81 fL (80-100); RDW Coefficient of Variation % 14.7 % (11.5-15.5); Red Blood Count* 5.34 m/uL (4.00-5.20); White Blood Count* 9.85 K/uL (4.50-11.00)
[2025-09-07 14:39] LABS: Slide Review Reflex No
[2025-09-07 14:45] LABS: INR 1.84 (0.91-1.10); Prothrombin Time 22.3 Seconds
[2025-09-07 14:47] LABS: Albumin* 3.8 g/dL (3.3-5.0); Chloride* 99 mmol/L (96-114); Potassium* 4.0 mmol/L (3.6-5.1); Sodium* 131 mmol/L (135-149)
[2025-09-07 14:50] LABS: Alanine Aminotransferase* 21 U/L (4-35); Alkaline Phosphatase* 53 U/L (40-150); Anion Gap 3 mEq/L (7-15); Aspartate Amino Transferase* 46 U/L (12-35); Bilirubin Total* 0.2 mg/dL (0.1-1.5); Blood Urea Nitrogen* 13 mg/dL (5-24); Calcium* 9.3 mg/dL (8.4-10.6); Carbon Dioxide* 29 mmol/L (20-32); Creatinine* 0.8 mg/dL (0.5-1.5); Est. Creatinine Clearance* 92.41; Estimated Glomerular Filt Rate 94 ml/min; Glucose* 116 mg/dL (60-115); Total Protein* 6.7 g/dL (6.0-8.3)
[2025-09-07 16:49] LABS: Troponin, Point-of-Care* 0.00 ng/ml (0.01-0.04)
[2025-09-07] MEDS: MAGNESIUM IV 2 GM/50 ML PIGGYBACK IVPB (16:58)
== END 2025-09-07 19:09 | disposition home or self-care (01) ==
PROVIDERS: Emergency Provider Family Medicine; PCP Internal Medicine
DX: R07.89 Other chest pain (principal); R25.2 Cramp and spasm; E83.42 Hypomagnesemia; Z86.718 Personal history of other venous thrombosis and embolism; Z79.01 Long term (current) use of anticoagulants; Z86.711 Personal history of pulmonary embolism; Z86.74 Personal history of sudden cardiac arrest
CPT/HCPCS: 36415; 71275; 80053; 83735; 84484; 85025; 85610; 93005; 93970; 94761; 96365; 96366; 99284; 99285; J3475; Q9967

== ENCOUNTER 2025-11-17 09:48 | Emergency (ER) | payer OTHER, SELFPAY ==
[2025-11-17] VITALS (9 sets, daily range): BP systolic 121; BP diastolic 88; PULSE 89; RESP 18; TEMP 36.6; O2SAT 98–100; BMI 35.0
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
--- NOTE | 2025-11-17 11:14 | ED.GENADULT ---
HPI - General Adult General Time Seen by Provider: 11:14 Date Seen: 11/17/25 Chief complaint: Headache/Migraine Stated complaint: Rt side weakness - sent from Time Seen by Provider: 11/17/25 11:13 Source: patient, RN notes reviewed and old records reviewed Mode of arrival: ambulatory Limitations: no limitations History of Present Illness HPI narrative: This 40-year-old female is referred from urgent care for right facial swelling for 3 days now. She does show me pictures, you can see definite right lower eyelid swelling in comparison to the left. The right cheek area and under the eye feels swollen to the patient, she notes it is probably a little better than what it was in does show me the picture where you can definitely see more prominence. She is feeling headache on the top of the right head. She feels some neck stiffness on the right side. This does radiate down into the anterior right chest. She did go to [facility], EKG was done but is not faxed or sent to us. She was referred to the ER for further evaluation. She has not noted any fevers chills, no night sweats. She does take a daily 10 mg Zyrtec for underlying seasonal allergies as well as having a dog in the house. She notes no visual changes. There has been maybe a little watering of the eye in the morning but there is no scratchiness or itchiness to the eye, the skin is not feeling itchy or tender. There is maybe some underlying tenderness in the right cheek area but no dental pain. She has a history of DVT with PE, had been on Coumadin but does tell me that she is on Eliquis now, takes it twice a day and has not missed any doses. She does have a Mirena IUD. With her DVT and pulmonary embolus, had cardiogenic shock and did end up on echo well at [facility]. She was having problems being subtherapeutic with Coumadin. She denies any dental pain, no pain with eating. She has had some nausea but no abdominal pain. No vomiting, no other GI symptoms. She does note that she takes a chronic sinus supplement, her mom has severe sinus disease and she has tried to avoid this. She notes no otalgia, no oral pharyngeal pain, no dental pain, no swallowing difficulties. She has had no nasal drainage, no sinus drainage. Related Data Home Medications ?Medication ?Instructions ?Recorded ?Confirmed multivitamin with minerals 1 tab PO ONCE 01/28/23 09/07/25 (Multiple Vitamin-Minerals tablet) levonorgestrel (Mirena) 1 device intrauterine ONCE 09/26/24 09/07/25 fluticasone propionate 50 1 - 2 spray intranasal DAILY 05/18/25 09/07/25 mcg/actuation nasal spray,suspension triamcinolone acetonide 0.1 % applic topical BID 05/18/25 08/10/25 topical cream cetirizine 10 mg tablet 10 mg PO QDAY PRN 05/31/25 09/07/25 ferrous gluconate 240 mg (27 mg 240 mg PO QDAY 05/31/25 09/07/25 iron) tablet warfarin 5 mg tablet 5 mg PO DAILY 07/03/25 09/07/25 Bacillus coagulans 800 million cell PO 08/10/25 08/10/25 cell tablet Previous Rx's ?Medication ?Instructions ?Recorded sumatriptan succinate 100 mg tablet 100 mg PO ONCE #14 tabs 09/26/24 trazodone 50 mg tablet 100 mg (2 x 50 mg) PO QHS 90 days 12/08/24 #180 tabs fluoxetine 20 mg capsule 40 mg (2 x 20 mg) PO QDAY #90 caps 06/05/25 lorazepam 0.5 mg tablet (Ativan) 0.5 mg PO BID PRN agitation #20 11/02/25 tabs ondansetron 4 mg disintegrating 4 mg PO Q8H PRN nausea and 11/06/25 tablet vomiting 30 days #30 tabs fluticasone 250 mcg-salmeterol 50 1 ea inhalation BID #60 ea 11/07/25 mcg/dose blistr powdr for inhalation albuterol sulfate 90 mcg/actuation 2 puff inhalation Q4-6H PRN 11/14/25 aerosol inhaler shortness of breath or wheezing 90 days #8.5 grams fluticasone propionate 115 2 puff inhalation BID #12 grams 11/14/25 mcg-salmeterol 21 mcg/actuation HFA inhaler (Advair HFA) cephalexin 500 mg tablet 500 mg PO TID #21 tabs 11/17/25 Allergies Allergy/AdvReac Type Severity Reaction Status Date / Time No Known Drug Allergies Allergy Verified 12/26/25 11:49 Review of Systems Status of ROS: Reports: 6 or more systems reviewed and unremarkable except as noted in History and below [facility] Medical History History of DVT (deep vein thrombosis) ?Z86.718 - Personal history of other venous thrombosis and embolism (ICD-10) History of pulmonary embolus (PE) ?Z86.711 - Personal history of pulmonary embolism (ICD-10) Endometriosis ?N80.9 - Endometriosis, unspecified (ICD-10) Heavy menstrual bleeding ?N92.0 - Excessive and frequent menstruation with regular cycle (ICD-10) Abnormal Papanicolaou smear of cervix with positive human papilloma virus (HPV) test ?R87.618 - Other abnormal cytological findings on specimens from cervix uteri (ICD-10) Insomnia ?G47.00 - Insomnia, unspecified (ICD-10) Migraine ?G43.909 - Migraine, unspecified, not intractable, without status migrainosus (ICD-10) Iron deficiency anemia ?D50.9 - Iron deficiency anemia, unspecified (ICD-10) Anxiety ?F41.9 - Anxiety disorder, unspecified (ICD-10) Asthma ?J45.909 - Unspecified asthma, uncomplicated (ICD-10) Surgical History History of colposcopy with cervical biopsy (2022) ?Z98.890 - Other specified postprocedural states (ICD-10) History of loop electrical excision procedure (LEEP) ?Z98.890 - Other specified postprocedural states (ICD-10) H/O wisdom tooth extraction ?K08.409 - Partial loss of teeth, unspecified cause, unspecified class (ICD-10) H/O foot surgery ?Z98.890 - Other specified postprocedural states (ICD-10) Hx of tonsillectomy ?Z90.89 - Acquired absence of other organs (ICD-10) Gastric bypass status for obesity ?Z98.84 - Bariatric surgery status (ICD-10) History of cholecystectomy ?Z90.49 - Acquired absence of other specified parts of digestive tract (ICD-10) Family History Mother Stroke Sister Thyroid cancer, medullary carcinoma Father Myocardial infarction Social History What is your current living situation?: I presently have a place to live Problems where you live: no known problems In the past 12 months, utilities in danger of being shut off: no In past 12 months, lack of transportation kept you from medical appts, meetings, work, or getting things needed for daily living: no In the past 12 mos, have been you worried that your food would run out before you had money to buy more?: never true In the past 12 mos, the food you bought just didn't last and you didn't have money to buy more?: never true Smoking Status: Never smoker Do you use any of these nicotine containing products: None How often do you have a drink containing alcohol: monthly or less How many standard drinks containing alcohol do you have on a typical day: 1 or 2 How often do you have six or more drinks on one occasion: Never AUDIT-C Alcohol total score: 1 Non-prescribed substance use: denies use How often does anyone, including family, friends and others, physically hurt you: never How often does anyone, including family, friends and others, insult or talk down to you: never How often does anyone, including family, friends and others, threaten you with harm: never How often does anyone, including family, friends and others, scream or curse at you: never service: No Exam Const: Vital Signs, click to edit/add: Vital Signs - 24 hr 11/17/25 10:13 11/17/25 11:38 11/17/25 11:56 Temperature 98 F Pulse Rate [Pulse Oximeter] 89 Respiratory Rate 18 Blood Pressure [Ri ght Upper Arm] 121/88 Pulse Oximetry 100 98 99 Oxygen Delivery Me thod Room Air 11/17/25 11:57 11/17/25 12:00 11/17/25 12:02 Temperature Pulse Rate [Pulse Oximeter] Respiratory Rate Blood Pressure [Ri ght Upper Arm] Pulse Oximetry 100 99 99 Oxygen Delivery Me thod 11/17/25 12:10 11/17/25 12:20 11/17/25 12:30 Temperature Pulse Rate [Pulse Oximeter] Respiratory Rate Blood Pressure [Ri ght Upper Arm] Pulse Oximetry 100 99 100 Oxygen Delivery Me thod This 40-year-old female is alert, interactive, no apparent distress. Vitals reviewed and stable. Pupils are equal round reactive, sclera clear, extraocular muscles intact. She has symmetrical facial function, there is edema of her right lower eyelid but not the upper eyelid. Do have a sense of maybe some slight swelling in comparison of the right cheek area to the left but no significant erythema, no lesions, no tenderness when I palpate the skin. Anterior nares normal. Oropharynx . No midline tenderness of her neck, neck is supple with good range of motion, some generalize right paraspinous tenderness and tenderness over the sternocleidomastoid muscle. I feel no neck masses, no adenopathy. There is no thyromegaly masses or nodules. There is no supraclavicular adenopathy or masses, some generalized tenderness when I palpate the right anterior upper chest wall without any masses or skin change. Lungs are clear, good air entry, no wheeze or crackles, no tachypnea, no accessory muscle use. CV regular rate and rhythm, no murmur, normal S1-S2. Abdomen is soft, nontender, nondistended, no organomegaly. She has no pretibial edema, no calf tenderness. Both canals have cerumen in them, cannot see TMs but she notes no otalgia. Oropharynx with normal posterior pharynx, uvula midline and normal, no swelling noted, dentition in good repair, oral mucosa and tongue normal. Speech is normal. Documenting provider has reviewed patient's vital signs: yes Course Course ED Course: This patient is going to have soft tissue neck imaging, this should in compass her maxillary sinus. I still think odontogenic and infectious etiology with sinus issues could be a source. This does not seem like it should be erysipelas as she has no skin changes, reviewed that people with facial cellulitis with erysipelas usually present with systemic illness with fevers. Will get full complement of labs. If she has been taking her Eliquis scheduled twice a day without any missed doses it would be unlikely for this to be thromboembolic disease. She is hemodynamically stable, no neurologic changes with this and thus do not feel we need to do any head CT imaging at this time but will consider if our clinical course would make this a higher consideration. Reevaluation(s) Time of Reevaluation #1: 11:53 Reevaluation #1: Patient requesting Tylenol, 1000mg ordered for patient. Time of Reevaluation #2: 12:25 Reevaluation #2: Have reviewed her CT with her, gave her a copy. There is no evidence of any structural abnormality, no sinus disease. Her white blood count is normal, C reactive protein normal. ProBNP, troponin normal. No concerning change on her labs. I do favor that this might actually be more atypical presentation of environmental allergen symptoms. We also did discuss the possibility of early facial cellulitis. She really has no odontogenic symptoms but should they develop, will need follow-up with a dentist. We are going to have her do conservative management with trying to elevate her head, using cool compresses or ice packs and increase her Zyrtec to twice daily. She is aware that if she has any worsening symptoms, anything changes or there are new developments that she will need re-evaluation. Vital Signs Vital signs: Initial Vital Signs Temperature 98 F 11/17/25 10:13 Temperature Source Temporal Artery Scan 11/17/25 10:13 Pulse Rate 89 11/17/25 10:13 Respiratory Rate 18 11/17/25 10:13 Blood Pressure 121/88 11/17/25 10:13 Blood Pressure Mean 99 11/17/25 10:13 Pulse Oximetry 100 11/17/25 10:13 Oxygen Delivery Method Room Air 11/17/25 10:13 Vital Signs Temperature 98 F 11/17/25 10:13 Pulse Rate 89 11/17/25 10:13 Respiratory Rate 18 11/17/25 10:13 Blood Pressure 121/88 11/17/25 10:13 Pulse Oximetry 100 11/17/25 10:13 Oxygen Delivery Method Room Air 11/17/25 10:13 Temperature 98 F 11/17/25 10:13 Pulse Rate 89 11/17/25 10:13 Respiratory Rate 18 11/17/25 10:13 Blood Pressure 121/88 11/17/25 10:13 Pulse Oximetry 100 11/17/25 12:30 Oxygen Delivery Method Room Air 11/17/25 10:13 Medications Administered Medications: Discontinued Medications Generic Name Dose Route Start Last Admin Trade Name Freq PRN Reason Stop Dose Admin Acetaminophen 1,000 mg 11/17/25 11:52 11/17/25 12:04 Acetaminophen 500 Mg Tablet PO 11/17/25 11:53 1,000 mg ONCE ONE Administration Medical Decision Making Lab Data Lab results reviewed: Yes I reviewed the patient's lab results Labs: Lab Results 11/17/25 Range/Units 11:37 WBC 6.09 (4.50-11.00) K/uL RBC 4.84 (4.00-5.20) m/uL Hgb 13.8 (12.0-16.0) gm/dL Hct 44.1 (33.0-51.0) % MCV 91 (80-100) fL MCH 29 (26-34) pg MCHC 31 L (32-36) gm/dL RDW Coeff of Jeremy 16.3 H (11.5-15.5) % Plt Count 407 (140-440) K/uL Neut % (Auto) 61.1 (42.0-72.0) % Lymph % (Auto) 27.9 (20-44) % [place] % (Auto) 9.2 (0.0-11.0) % Eos % (Auto) 1.3 (0.0-7.0) % Baso % (Auto) 0.3 (0.0-3.0) % Neut # (Auto) 3.72 (1.7-7.0) K/uL Lymph # (Auto) 1.70 (0.90-2.90) K/uL [place] # (Auto) 0.60 (0.00-0.90) K/UL Eos # (Auto) 0.08 (0.00-0.50) K/uL Baso # (Auto) 0.02 (0.00-0.30) K/uL Abs Immat Gran (auto) 0.01 (0.00-0.30) K/uL Imm/Tot Granulo (auto) 0.2 % Sodium 134 L (135-149) mmol/L Potassium 4.2 (3.6-5.1) mmol/L Chloride 103 (96-114) mmol/L Carbon Dioxide 27 (20-32) mmol/L Anion Gap 4 L (7-15) mEq/L BUN 7 (5-24) mg/dL Creatinine 0.7 (0.5-1.5) mg/dL Estimated Creat Clear 105.61 Estimated GFR 111 ml/min Glucose 85 (60-115) mg/dL Lactate 0.7 (0.5-1.9) mmol/L Calcium 9.3 (8.4-10.6) mg/dL Total Bilirubin 0.9 (0.1-1.5) mg/dL AST 41 H (12-35) U/L ALT 21 (4-35) U/L Alkaline Phosphatase 52 (40-150) U/L Troponin I < 0.01 (0.01-0.04) ng/mL C-Reactive Protein < 0.5 L (0.5-1.0) mg/dL NT-Pro-B Natriuret Pep 111 (See Note) pg/mL Total Protein 7.0 (6.0-8.3) g/dL Albumin 4.1 (3.3-5.0) g/dL Imaging Data CT soft tissue neck: Attestation: I have reviewed the pertinent imaging results. Radiologist's impression: Patient: SHANELL MENDEZ Facility:?[facility] Patient ID:?[id number] Site Patient ID:?[id number]. Site :?[id number] Study:?CT-ST Neck 112CC ISOVUE 370-11/17/2025 11:49:21 AM Ordering Physician:Alejo Sims Final Report: INDICATION: Right facial swelling and pain, radiates down into shoulder. TECHNIQUE: CT soft tissue of the neck was acquired with 112 cc of Isovue 370 contrast. COMPARISON: None. FINDINGS: No suspicious neck mass or concerning cervical lymph nodes. Bilateral parotid and submandibular glands are normal in size and attenuation. Thyroid gland is homogeneous. The pre epiglottic and paraglottic fat planes are preserved. Bilateral jugular veins are patent. Paranasal sinuses and mastoid air cells are well pneumatized. Orbits show no acute abnormality. No mass effect at the skull base. Included lung marx are clear. Degenerative changes of the spine at C6-7 level.. IMPRESSION: No suspicious mass or concerning neck lymph nodes. Please note that all CT scans at this facility use dose modulation, iterative reconstruction, and/or weight-based dosing when appropriate to reduce radiation dose to as low as reasonably achievable. Dictated by Nai Da Silva MD @ 11/17/2025 12:04:41 PM (Electronic Signature) Discharge Plan Discharge Clinical Impression: Swelling of right side of face Patient Disposition: Home, Self-Care Condition: Stable Additional Instructions: The exact cause of your facial swelling is unknown. Your labs and CT are not showing any definite etiology. I will send in antibiotics for you to start if the facial swelling is worsening, becomes more painful in the skin or if you develop fever with this. Otherwise increased Zyrtec to twice a day for the time being, try to elevate the head as much as possible. Can use ice packs or cool compresses to your face to try to diminish the swelling. Please seek re-evaluation if there are any concerning changes, you develop new symptoms. If the facial swelling is not worsening but not improving with outlined conservative treatments, could possibly try to get in to Dermatology for further evaluation. Activity Level: Activity as Tolerated Prescriptions: New cephalexin 500 mg tablet 500 mg PO TID Qty: 21 0RF No Action cetirizine 10 mg tablet 10 mg PO QDAY PRN ferrous gluconate 240 mg (27 mg iron) tablet 240 mg PO QDAY Bacillus coagulans 800 million cell tablet PO Multiple Vitamin-Minerals Tablet 1 tab PO ONCE sumatriptan succinate 100 mg tablet 100 mg PO ONCE Qty: 14 3RF Mirena 21 mcg/24hr (up to 8 yrs) 52 mg intrauterine device 1 device intrauterine ONCE Rx Instructions: as a single dose triamcinolone acetonide 0.1 % cream topical BID fluticasone propionate 50 mcg/actuation spray,suspension 1 - 2 spray intranasal DAILY warfarin 5 mg tablet 5 mg PO DAILY trazodone 50 mg tablet 100 mg PO QHS 90 Days Qty: 180 3RF fluoxetine 20 mg capsule 40 mg PO QDAY Qty: 90 3RF lorazepam [Ativan] 0.5 mg tablet 0.5 mg PO BID PRN (Reason: agitation) Qty: 20 0RF ondansetron 4 mg tablet,disintegrating 4 mg PO Q8H PRN (Reason: nausea and vomiting) 30 Days Qty: 30 3RF fluticasone propion-salmeterol 250-50 mcg/dose blister with device 1 ea inhalation BID Qty: 60 3RF albuterol sulfate 90 mcg/actuation HFA aerosol inhaler 2 puff inhalation Q4-6H PRN (Reason: shortness of breath or wheezing) 90 Days Qty: 8.5 3RF fluticasone propion-salmeterol [Advair HFA] 115-21 mcg/actuation HFA aerosol inhaler 2 puff inhalation BID Qty: 12 0RF Follow Up/Referrals: Prieto Hyman MD [Primary Care Provider, Internal Medicine] Stand Alone Forms: [employer] Info Instructions
--- NOTE | 2025-11-17 11:23 | CRLHL7_ITS ---
For Patients: As a result of the Century Cures Act, medical imaging exams and procedure reports are released immediately into your electronic medical record. You may view this report before your referring provider. If you have questions, please contact your health care provider. INDICATION: Right facial swelling and pain, radiates down into shoulder. TECHNIQUE: CT soft tissue of the neck was acquired with 112 cc of Isovue 370 contrast. COMPARISON: None. FINDINGS: No suspicious neck mass or concerning cervical lymph nodes. Bilateral parotid and submandibular glands are normal in size and attenuation. Thyroid gland is homogeneous. The pre epiglottic and paraglottic fat planes are preserved. Bilateral jugular veins are patent. Paranasal sinuses and mastoid air cells are well pneumatized. Orbits show no acute abnormality. No mass effect at the skull base. Included lung marx are clear. Degenerative changes of the spine at C6-7 level.. IMPRESSION: No suspicious mass or concerning neck lymph nodes. Please note that all CT scans at this facility use dose modulation, iterative reconstruction, and/or weight-based dosing when appropriate to reduce radiation dose to as low as reasonably achievable. Dictated by Nai Da Silva MD @ 11/17/2025 12:04:41 PM (Electronically Signed)
[2025-11-17 11:42] LABS: Lactate* 0.7 mmol/L (0.5-1.9)
[2025-11-17 11:43] LABS: Hematocrit* 44.1 % (33.0-51.0); Hemoglobin* 13.8 gm/dL (12.0-16.0); Immature Granulocytes Abs Auto 0.01 K/uL (0.00-0.30); Immature Granulocytes Pct Auto 0.2 %; Lymphocytes Absolute Auto 1.70 K/uL (0.90-2.90); Mean Corpuscular HGB Conc 31 gm/dL (32-36); Mean Corpuscular Hemoglobin 29 pg (26-34); Mean Corpuscular Volume 91 fL (80-100); RDW Coefficient of Variation % 16.3 % (11.5-15.5); Red Blood Count* 4.84 m/uL (4.00-5.20); Slide Review Reflex No; White Blood Count* 6.09 K/uL (4.50-11.00)
[2025-11-17 11:57] LABS: Albumin* 4.1 g/dL (3.3-5.0); Chloride* 103 mmol/L (96-114); Sodium* 134 mmol/L (135-149)
[2025-11-17 11:58] LABS: Potassium* 4.2 mmol/L (3.6-5.1)
[2025-11-17 12:00] LABS: Alanine Aminotransferase* 21 U/L (4-35); Aspartate Amino Transferase* 41 U/L (12-35); Blood Urea Nitrogen* 7 mg/dL (5-24); Creatinine* 0.7 mg/dL (0.5-1.5); Est. Creatinine Clearance* 105.61; Estimated Glomerular Filt Rate 111 ml/min
[2025-11-17 12:01] LABS: Alkaline Phosphatase* 52 U/L (40-150); Anion Gap 4 mEq/L (7-15); Bilirubin Total* 0.9 mg/dL (0.1-1.5); Calcium* 9.3 mg/dL (8.4-10.6); Carbon Dioxide* 27 mmol/L (20-32); Glucose* 85 mg/dL (60-115); Total Protein* 7.0 g/dL (6.0-8.3)
[2025-11-17] MEDS: ACETAMINOPHEN 500 MG TABLET 1000 MG PO (12:04)
[2025-11-17 12:17] LABS: NT Pro B Type NatriureticPept* 111 pg/mL (See Note)
== END 2025-11-17 12:47 | disposition home or self-care (01) ==
PROVIDERS: Emergency Provider Family Medicine; PCP Internal Medicine
DX: R22.0 Localized swelling, mass and lump, head (principal)
CPT/HCPCS: 36415; 70491; 80053; 83605; 83880; 84484; 85025; 86140; 93005; 94761; 99284; 99285; A9270; Q9967